=== PATIENT | male | born 1960 | race Hispanic/Latino ===

== ENCOUNTER 2017-04-26 19:22 | Inpatient (IN) | payer MEDICAID, OTHER ==
[2017-04-26 21:03] LABS: BASO % 0.4 % (0.0-2.0); EOS % 0.2 % (0.0-4.0); HEMATOCRIT 44.1 % (35.0-51.0); LYMPH % 10.8 % (20.0-40.0); MEAN CORPUSCULAR HEMOGLOBIN 34.1 pg (27.0-31.0); MEAN CORPUSCULAR HGB CONC 34.1 g/dL (33.0-37.0); MEAN PLATELET VOLUME 8.6 fl (7.2-11.7); MONO # 1.1 K/uL (0.0-0.8); MONO % 12.3 % (0.0-10.0); NEUT # 6.8 K/uL (1.8-7.0); NEUT % 76.3 % (50.0-75.0); RED CELL DISTRIBUTION WIDTH 15.3 % (11.5-14.5); WHITE BLOOD COUNT 8.9 K/uL (4.8-10.8)
--- NOTE | 2017-04-26 21:16 | ED PDOC ---
"HPI: Head Injury Time Seen by Provider: 04/26/17 19:35 Chief Complaint (Nursing): Trauma Chief Complaint (Provider): Head injury History Per: Patient History/Exam Limitations: no limitations Onset/Duration Of Symptoms: Days (x2) Additional Complaint(s): Rajinder Sandoval is a undomiciled 56 year old male with previous medical history of alcoholism, anemia, hypertension and chronic back pain, who presents to the emergency department for an evaluation after he admitted to falling while drinking and sustaining a head injury last night. Denied any fever, chills, or vomiting. PMD: Justin Edwards MD NIHSS Stroke Scale - Date/Time Evaluation Performed Date Performed: 04/26/17 Time Performed: 21:44 - How Severe is the Stroke Level of Consciousness: 0=Alert LOC to Questions: 0=Both comments correct LOC to commands: 0=Obeys both correctly Best Gaze: 0=Normal Visual: 0=No visual loss Facial: 0=Normal Motor Arm - Left: 0=No drift Motor Arm - Right: 0=No drift Motor Leg - Left: 0=No drift Motor Leg - Right: 0=No drift Limb Ataxia: 0=Absent Sensory: 0=Normal Best Language: 0=No aphasia Dysarthia: 0=Normal articulation Extinction & Inattention (Neglect): 0=Normal, no object Score: 0 Past Medical History Reviewed: Historical Data, Nursing Documentation, Vital Signs Vital Signs: Last Vital Signs Temp 98.7 F 04/26/17 19:25 Pulse 102 H 04/26/17 19:25 Resp 16 04/26/17 19:25 BP 118/82 04/26/17 19:25 Pulse Ox 98 04/26/17 19:25 - Medical History PMH: Anemia, Arthritis, Back Problems, HTN Denies: HIV - Surgical History Surgical History: No Surg Hx - Family History Family History: States: Unknown Family Hx - Social History Current smoker - smoking cessation education provided: No Alcohol: Occasional Drugs: Denies - Immunization History Hx Tetanus Toxoid Vaccination: Yes Hx Influenza Vaccination: Yes Hx Pneumococcal Vaccination: No - Home Medications Home Medications: Ambulatory Orders Medication Instructions Recorded No Known Home Med 04/26/17 - Allergies Allergies/Adverse Reactions: Allergies Allergy/AdvReac Type Severity Reaction Status Date / Time No Known Allergies Allergy Verified 04/26/17 23:00 Review of Systems ROS Statement: Except As Marked, All Systems Reviewed And Found Negative Constitutional: Negative for: Fever, Chills Gastrointestinal: Negative for: Vomiting Neurological: Positive for: Other (head injury) Physical Exam - Reviewed Nursing Documentation Reviewed: Yes Vital Signs Reviewed: Yes - Physical Exam Appears: Positive for: Well, Non-toxic, No Acute Distress Head Exam: Positive for: ATRAUMATIC, NORMAL INSPECTION, NORMOCEPHALIC Skin: Positive for: Normal Color Cardiovascular/Chest: Positive for: Regular Rate, Rhythm Respiratory: Positive for: Normal Breath Sounds. Negative for: Crackles, Rales , Rhonchi, Wheezing Gastrointestinal/Abdominal: Positive for: Soft Extremity: Positive for: Normal ROM Neurologic/Psych: Positive for: Alert, re examiner II-XII (intact), Oriented. Negative for: Motor/Sensory Deficits - Laboratory Results Result Diagrams: 04/26/17 20:59 04/26/17 20:59 - ECG O2 Sat by Pulse Oximetry: 98 (RA) Pulse Ox Interpretation: Normal Medical Decision Making Medical Decision Making: Initial Impression: Head injury Initial Plan: * CT head without contrast * Alcohol serum * Labs Time: 2124 --CT head FINDINGS: Brain: 2.1 x 1.7 x 1.2 cm focus of low attenuation in the right basal ganglia ( series 4, image 31). 6 mm focus of low attenuation in the left thalamus. Preserved wallace-white matter differentiation in the rest of the brain. Cerebral white matter low attenuation compatible with chronic small vessel ischemic changes. No evident intracranial mass. Parenchymal atrophy that is greater than expected for the patient's age. No acute intracranial hemorrhage. No abnormal extra-axial fluid collection. No herniation. Patent basal cisterns. Ventricles: Compensatory enlargement of the ventricles concordant with the parenchymal atrophy. Bones/joints: No destructive calvarial lesion. Old fracture of the left orbit medial wall. Soft tissues: No acute findings. RAJINDER SANDOVAL | Preliminary Radiology Report BARTACKER (QA) DISCREPANCY? If there is a discrepancy between the preliminary and final interpretation, please notify [facility] via [email or web address]. If you do not have access to our QA portal, call our QA team at [phone] CONFIDENTIALITY STATEMENT This report is intended only for the use of the referring physician, and only in accordance with law, If you received this in error, call [phone] Page 2 of 2 Vasculature: Atherosclerotic calcification of the intracranial portions of the internal carotid and vertebral arteries. Sinuses: The imaged paranasal sinuses are clear. Mastoid air cells: Small amount of fluid in a single right mastoid air cell. The mastoid air cells are otherwise clear bilaterally. IMPRESSION: 1. Low-attenuation foci in the right basal ganglia and left thalamus as described above are consistent with lacunar infarcts of indeterminate chronicity. If clinically warranted, further evaluation could be obtained with an MRI Brain. 2. Parenchymal atrophy that is greater than expected for the patient's age but is otherwise nonspecific. 3. Cerebral white matter low attenuation compatible with chronic small vessel ischemic changes. 4. Atherosclerotic calcification of the intracranial portions of the internal carotid and vertebral arteries. 5. A small amount of fluid in a single right mastoid air cell is likely sequela of a prior infectious or inflammatory process. 6. Additional nonacute findings as described above Time: 2143 --Possible subacute stroke per CT - no acute neurological findings on physical exam --Neurology consultation in am- order placed --Aspirin 325mg PO ordered pt to be admitted for stroke workup pt accepted by hospitalist Dr Brownlee Scribe Attestation: Documented by Indigo Stephen, acting as a scribe for Maile Nunes MD. Provider Scribe Attestation: All medical record entries made by the Scribe were at my direction and personally dictated by me. I have reviewed the chart and agree that the record accurately reflects my personal performance of the history, physical exam, medical decision making, and the department course for this patient. I have also personally directed, reviewed, and agree with the discharge instructions and disposition. Disposition - Clinical Impression Clinical Impression: Alcohol abuse, Stroke-like episode - Patient ED Disposition Is Patient to be Admitted: Yes - Disposition Disposition Time: 21:00 Condition: GUARDED"
[2017-04-26 21:17] LABS: ALB/GLOB RATIO 1.1 (1.0-2.1); ALCOHOL SERUM < 10 mg/dl (0-10); ALKALINE PHOSPHATASE 75 U/L (38-126); ALT/SGPT 36 U/L (21-72); AST/SGOT 55 U/L (17-59); BILIRUBIN,TOTAL 2.1 mg/dl (0.2-1.3); BLOOD UREA NITROGEN 11 mg/dl (9-20); CALCIUM 9.7 mg/dL (8.4-10.2); CARBON DIOXIDE 26 mmol/L (22-30); CHLORIDE 96 mmol/L (98-107); GFR AFRICAN-AMERICAN > 60; GLUCOSE,RANDOM 95 mg/dL (75-110); SODIUM 132 mmol/l (132-148); TOTAL PROTEIN 8.7 G/DL (6.3-8.2)
[2017-04-26 21:22] LABS: POTASSIUM 5.1 MMOL/L (3.6-5.0)
--- NOTE | 2017-04-26 22:52 | CP.PCM.HP ---
History of Present Illness - History of Present Illness History of Present Illness: CC: Falls, decreased sensation in feet HPI: This is a 56 y/o undomiciled male with MHx significant for HTN, anemia, and EtOH abuse who comes in with multiple falls with minor head trauma. He states that he has been feeling 'off balance' and falling more over the past several days. He denies EtOH associated with these falls. He has hit his head, but not passed out. Denies any focal weakness, but feels like both his feet are numb (this is ongoing, not new) and also c/o back pain (also chronic); he also feels off balance more lately as well. Denies any CP/SOB. ROS: 14 systems reviewed, negative other than HPI MHx: HTN, anemia, EtOH abuse SHx: None Allergy: NKDA Medications: As per med rec (questionable compliance) Family Hx: Multiple family members with MIs Social Hx: Homeless, 10 cans of beer daily or more, some variable number of cigarettes a day (below 10) Surrogate Dec Mkr: None Present on Admission - Present on Admission Any Indicators Present on Admission: No Past Patient History - Past Medical History & Family History Past Medical History?: Yes - Past Social History Alcohol: > 2 Drinks/Day Drugs: Denies - CARDIAC Hx Hypertension: Yes - PULMONARY Hx Tuberculosis: No - NEUROLOGICAL HX Cerebrovascular Accident: No - HEMATOLOGICAL/ONCOLOGICAL Hx Anemia: Yes Hx Human Immunodeficiency Virus (HIV): No - MUSCULOSKELETAL/RHEUMATOLOGICAL Hx Arthritis: Yes - GASTROINTESTINAL Hx Gastrointestinal Disorders: Yes Hx Colitis: Yes - PSYCHIATRIC Hx Substance Use: No - SURGICAL HISTORY Hx Surgeries: Yes Other/Comment: hemmroids - ANESTHESIA Hx Anesthesia: Yes Hx Anesthesia Reactions: No Hx Malignant Hyperthermia: No Meds Allergies/Adverse Reactions: Allergies Allergy/AdvReac Type Severity Reaction Status Date / Time No Known Allergies Allergy Verified 11/02/14 17:55 Physical Exam - Constitutional Appears: No Acute Distress - Head Exam Head Exam: ATRAUMATIC, NORMOCEPHALIC - Eye Exam Eye Exam: EOMI, PERRL - ENT Exam ENT Exam: Mucous Membranes Moist - Neck Exam Neck exam: Positive for: Full Rom - Respiratory Exam Respiratory Exam: Clear to Auscultation Bilateral, NORMAL BREATHING PATTERN - Cardiovascular Exam Cardiovascular Exam: REGULAR RHYTHM, +S1, +S2 - GI/Abdominal Exam GI & Abdominal Exam: Normal Bowel Sounds, Soft - Extremities Exam Extremities exam: Positive for: full ROM, normal inspection - Neurological Exam Neurological exam: Alert, CN II-XII Intact, Oriented x3 Additional comments: decreased sensation subjectively in b/l feet - Psychiatric Exam Psychiatric exam: Normal Affect, Normal Mood - Skin Skin Exam: Dry, Warm Results - Vital Signs Recent Vital Signs: Last Vital Signs Temp 98.7 F 04/26/17 19:25 Pulse 102 H 04/26/17 19:25 Resp 16 04/26/17 19:25 BP 118/82 04/26/17 19:25 Pulse Ox 98 04/26/17 21:56 - Labs Result Diagrams: 04/26/17 20:59 04/26/17 20:59 - Imaging and Cardiology CT scan - head Status: Report reviewed by me (R basal, L thalamus) Assessment & Plan (1) CVA (cerebral vascular accident) Assessment and Plan: 56 y/o male presenting with falls/balance problems in the setting of chronic EtOH use as well as possible subacute CVA. 1) Gait instability/falls; possible subacute CVA -ASA 81 daily, Statin daily -Echo and carotid dopplers in AM -Neuro consult in AM (Bashirya); further imaging per neuro -PT asssessment 2) EtOH abuse -- not acute; may have EtOH related neuropathy -- will check B12, folic acid 3) HTN -- stable currently 4) DVT PPx -- SQ Lovenox Status: Acute (2) Falls Status: Acute (3) Alcohol abuse Status: Acute (4) DVT prophylaxis Status: Acute
[2017-04-27] MEDS ORDERED: Pneumococcal 23-Valent Vaccine IM ONE (05:20)
[2017-04-27 07:00] LABS: HEMATOCRIT 41.9 % (35.0-51.0); MEAN CELL VOLUME 101.4 fl (80.0-94.0); MEAN CORPUSCULAR HEMOGLOBIN 34.3 pg (27.0-31.0); MEAN CORPUSCULAR HGB CONC 33.8 g/dL (33.0-37.0); RED CELL DISTRIBUTION WIDTH 15.1 % (11.5-14.5); WHITE BLOOD COUNT 7.4 K/uL (4.8-10.8)
[2017-04-27 07:02] LABS: BLOOD UREA NITROGEN 10 mg/dl (9-20); CALCIUM 9.5 mg/dL (8.4-10.2); CARBON DIOXIDE 29 mmol/L (22-30); CHLORIDE 95 mmol/L (98-107); CHOLESTEROL 178 mg/dL (0-199); GFR AFRICAN-AMERICAN > 60; GLUCOSE,RANDOM 88 mg/dL (75-110); POTASSIUM 3.4 MMOL/L (3.6-5.0); SODIUM 133 mmol/l (132-148)
--- NOTE | 2017-04-27 08:07 | CT ---
PROCEDURE: CT HEAD WITHOUT CONTRAST. HISTORY: headache COMPARISON: None available. TECHNIQUE: Axial computed tomography images were obtained through the head/brain without intravenous contrast. Coronal and sagittal reconstructed images. Radiation dose: Total exam DLP = 850.98 mGy-cm. This CT exam was performed using one or more of the following dose reduction techniques: Automated exposure control, adjustment of the mA and/or kV according to patient size, and/or use of iterative reconstruction technique. FINDINGS: HEMORRHAGE: No intracranial hemorrhage. BRAIN: No mass effect or edema. Low-attenuation region right basal ganglia. Likely lacune or infarct. Additional smaller well-defined low-attenuation regions left thalamus and internal capsule. Severe cortical atrophy for age. VENTRICLES: Unremarkable. No hydrocephalus. CALVARIUM: Unremarkable. PARANASAL SINUSES: Unremarkable as visualized. No significant inflammatory changes. MASTOID AIR CELLS: Unremarkable as visualized. No inflammatory changes. OTHER FINDINGS: None. IMPRESSION: No acute intracranial abnormalities. No significant findings to account for the clinical presentation. Multiple bilateral lacune or infarcts and severe cortical atrophy. Concordant results (preliminary interpretation) provided by [facility]. Procedure Completed: 20:32. Preliminary ([facility]) Report: Dictated and Authenticated: 21:25. Final Interpretation: 08:05. April 27, 2017.
[2017-04-27 08:15] LABS: RBC URINE 4 /hpf (0-3); URINE BILIRUBIN NEGATIVE (NEGATIVE); URINE BLOOD SMALL (NEGATIVE); URINE COLOR AMBER (YELLOW); URINE GLUCOSE (UA) NEG (Normal); URINE KETONE NEGATIVE (NEGATIVE); URINE LEUKOCYTE ESTERASE NEG Leu/uL (Negative); URINE PROTEIN NEGATIVE (NEGATIVE); WBC URINE < 1 /hpf (0-5)
[2017-04-27] MEDS: Enoxaparin 40 mg Syringe SC SCH (08:56)
--- NOTE | 2017-04-27 11:25 | CARD ---
APPROVED REPORT EXAM: Two-dimensional and M-mode echocardiogram with Doppler and color Doppler. Other Information Quality : [employer] : NSR INDICATION CVA/TIA 2D DIMENSIONS IVSd0.74 (0.7-1.1cm)LVDd5.00 (3.9-5.9cm) LVOT Diameter2.48 (1.8-2.4cm)PWd0.68 (0.7-1.1cm) IVSs1.14 (0.8-1.2cm)LVDs3.36 (2.5-4.0cm) FS (%) 32.8 %PWs1.05 (0.8-1.2cm) M-Mode DIMENSIONS Left Atrium (MM)3.91 (2.5-4.0cm)IVSd0.38 (0.7-1.1cm) Aortic Root3.41 (2.2-3.7cm)LVDd7.29 (4.0-5.6cm) Aortic Cusp Exc.2.18 (1.5-2.0cm)PWd0.88 (0.7-1.1cm) IVSs1.24 cmFS (%) 38 % LVDs4.56 (2.0-3.8cm)PWs0.97 cm Mitral Valve MV E Pfifvjbw29.0cm/sMV DECEL [id number] A Cxuuends61.7cm/s MV CRW98duA/A ratio1.2MVA (PHT)4.11cm2 TDI Lateral E' Peak V13.28cm/sMedial E' Peak V9.61cm/sE/Lateral E'4.9 E/Medial E'6.8 Pulmonary Valve PV Peak Ycygyhvz951.5cm/s Tricuspid Valve TR Peak Upemfzaj415gp/sRAP EZMKUHNC59zyXpEV Peak Gr.18mmHg [id number] LEFT VENTRICLE The left ventricle is normal size. There is normal left ventricular wall thickness. The left ventricular function is normal. The left ventricular ejection fraction is within the normal range. The Ejection Fraction is 60-65%. There is normal LV segmental wall motion. The left ventricular diastolic function is normal. No left ventricle thrombus noted on this study. There is no mass noted in the left ventricle. RIGHT VENTRICLE The right ventricle is normal size. There is normal right ventricular wall thickness. The right ventricular systolic function is normal. ATRIA The left atrium size is normal. The right atrium size is normal. The interatrial septum is intact with no evidence for an atrial septal defect. AORTIC VALVE The aortic valve is normal in structure and function. No aortic regurgitation is present. There is no aortic valvular stenosis. There is no aortic valvular vegetation. MITRAL VALVE The mitral valve is normal in structure and function. There is no evidence of mitral valve prolapse. There is no mitral valve stenosis. Mitral regurgitation is trace. TRICUSPID VALVE The tricuspid valve is normal in structure and function. There is trace tricuspid regurgitation. There is no tricuspid valve prolapse or vegetation. There is no tricuspid valve stenosis. PULMONIC VALVE The pulmonary valve is normal in structure and function. There is no pulmonic valvular regurgitation. There is no pulmonic valvular stenosis. GREAT VESSELS The aortic root is normal in size. The IVC is normal in size and collapses >50% with inspiration. PERICARDIAL EFFUSION The pericardium appears normal. There is no pleural effusion. <Conclusion> The left ventricle is normal size. The left ventricular function is normal. The left ventricular ejection fraction is within the normal range. The Ejection Fraction is 60-65%. There is trace tricuspid regurgitation. Mitral regurgitation is trace.
--- NOTE | 2017-04-27 11:54 | US ---
PROCEDURE: Duplex ultrasound of the carotid and vertebral arteries. HISTORY: CVA COMPARISON: None available. TECHNIQUE: Grayscale and duplex Doppler evaluation of the cervical carotid and vertebral arteries were performed. The common carotid, carotid bifurcations and cervical ICA and proximal ECA were evaluated. The vertebral arteries were evaluated for gross patency and direction. FINDINGS: There are calcified atherosclerotic plaques in the carotid bulbs and proximal internal and external carotid arteries. RIGHT CAROTID ARTERIES: Common Carotid Artery: Normal flow. Maximal flow velocity of 98.6 cm/s. Carotid Bifurcation: Unique flow. Internal Carotid Artery:Normal flow. Maximal flow velocity of 94.7 cm/s. External Carotid Artery (proximal branches): Normal. Maximal flow velocity of 18.3 cm/s. ICA/CCA Ratio: 1.0 LEFT CAROTID ARTERIES: Common Carotid Artery: Normal flow. Maximal flow velocity of 102.5 cm/s. Carotid Bifurcation: Normal flow. Internal Carotid Artery:Normal flow. Maximal flow velocity of 88.2 cm/s. External Carotid Artery (proximal branches): Normal. Maximal flow velocity of 114.3 cm/s. ICA/CCA Ratio: 1.2 VERTEBRAL ARTERIES: Right Vertebral Artery: Patent. Antegrade flow. Left Vertebral Artery: Patent. Antegrade flow. OTHER FINDINGS: None. IMPRESSION: No evidence of hemodynamically significant stenosis.
--- NOTE | 2017-04-27 14:16 | CP.PCM.PN ---
Subjective - Date & Time of Evaluation Date of Evaluation: 04/27/17 Time of Evaluation: 08:30 - Subjective Subjective: Patient was seen and examined. Hemodynamically stable, afebrile, with no sings of withdrawals. With ubnstaedy gait. No gross neuro deficits , AAOx3 . Objective - Vital Signs/Intake and Output Vital Signs (last 24 hours): Temp Pulse Resp BP Pulse Ox 97.8 F 71 18 158/88 H 99 04/27/17 11:58 04/27/17 11:58 04/27/17 11:58 04/27/17 11:58 04/27/17 11:58 - Medications Medications: Current Medications Acetaminophen (Tylenol 325mg Tab) 650 mg PO Q6 PRN PRN Reason: Pain, Mild (1-3) Last Admin: 04/27/17 13:15 Dose: 650 mg Aspirin (Aspirin Chewable) 81 mg PO DAILY [facility] Last Admin: 04/27/17 08:56 Dose: 81 mg Atorvastatin Calcium (Lipitor) 40 mg PO DAILY [facility] Last Admin: 04/27/17 08:56 Dose: 40 mg Enoxaparin Sodium (Lovenox) 40 mg SC DAILY [facility] PRN Reason: Protocol Last Admin: 04/27/17 08:56 Dose: 40 mg - Labs Labs: 04/27/17 06:10 04/27/17 06:10 - Constitutional Appears: Non-toxic, No Acute Distress - Head Exam Head Exam: ATRAUMATIC, NORMAL INSPECTION, NORMOCEPHALIC - Eye Exam Eye Exam: EOMI, Normal appearance, PERRL Pupil Exam: NORMAL ACCOMODATION - ENT Exam ENT Exam: Mucous Membranes Moist, Normal Exam - Respiratory Exam Respiratory Exam: Clear to Ausculation Bilateral, NORMAL BREATHING PATTERN. absent: Rales, Rhonchi, Wheezes - Cardiovascular Exam Cardiovascular Exam: REGULAR RHYTHM, RRR, +S1, +S2. absent: JVD - GI/Abdominal Exam GI & Abdominal Exam: Soft, Normal Bowel Sounds. absent: Guarding, Tenderness, Rebound - Rectal Exam Rectal Exam: Deferred - Extremities Exam Extremities Exam: Full ROM, Normal Capillary Refill, Normal Inspection. absent : Calf Tenderness, Pedal Edema - Back Exam Back Exam: NORMAL INSPECTION - Neurological Exam Neurological Exam: Alert, Awake, CN II-XII Intact, Oriented x3 Additional comments: wide base gait - Psychiatric Exam Psychiatric exam: Normal Affect - Skin Skin Exam: Dry, Intact, Normal Color, Warm Assessment and Plan - Assessment and Plan (Free Text) Assessment: 56 y/o homeless male with PMHx significant for HTN, anemia, and EtOH abuse presented to Er with multiple falls with minor head trauma. He states that he has been feeling 'off balance' and falling more over the past several days. He denies EtOH associated with these falls. He has hit his head, but not passed out. Denies any focal weakness, but feels like both his feet are numb (this is ongoing, not new) and also c/o back pain (also chronic); he also feels off balance more lately as well. Denies any CP/SOB. CT head in ER showed Multiple bilateral lacune or infarcts and severe cortical atrophy. 1. Gait instability with falls possible subacute CVA ,alcoholic neuropathy Continue tele monitoring ASA 81 mg Po daily , Statin Vitamin b12 levels normal F/u MRI head , Echo and carotid doppler Follow up neurology consult PT eval appreciated . Continue PT while in patient. patient has no insurance so will need to come as out patient for PT . 2. EtOH abuse chronic no signs of withdrawal 3.HTN start Norvasc low dose 4. Thrombocytopenia most likley chronic secondary to ETOH abuse 5.Hyperkalemia/ hypokalemia correct accordingly 6. DVT PPx SQ Lovenox
--- NOTE | 2017-04-27 15:17 | MRI ---
PROCEDURE: MRI BRAIN WITHOUT CONTRAST HISTORY: r/o stroke COMPARISON: Noncontrast head CT from 04/26/2017 TECHNIQUE: Multiplanar, multisequence MR images of the brain were obtained without intravenous contrast enhancement. FINDINGS: HEMORRHAGE: None DWI: There is a large area of restricted diffusion in the right narayanan radiata extending to the basal ganglia. BRAIN PARENCHYMA: There are severe chronic microangiopathic changes. There is no mass, mass effect or abnormal extra-axial fluid collection. There is a partially empty sella, otherwise the midline sagittal structures are normal. VENTRICLES: There is mild age-related global parenchymal volume loss and proportionate enlargement of the ventricles and cortical sulci. CRANIUM: There is normal bone marrow signal pattern. ORBITS: Grossly unremarkable. PARANASAL SINUSES/MASTOIDS: Predominantly clear. VASCULAR SYSTEM: Skull base flow voids intact. OTHER FINDINGS: None. IMPRESSION: 1. Acute right MCA territory infarction involving the right narayanan radiata and basal ganglia. 2. Severe chronic microangiopathic changes and mild age-related global parenchymal volume loss. Critical findings were discussed with nurse Ginger Sanders on 04/27/2017 at 3:15 p.m.
--- NOTE | 2017-04-27 15:31 | CP.PCM.CON ---
History of Present Illness - History of Present Illness History of Present Illness: Mr. Norton is a 56-year-old homeless man with a past medical history of hypertension and alcohol abuse who complains of generalized weakness and gait disturbance over the last day or two. He was admitted for work-up and an MRI of the brain revealed severe white matter disease with an acute infarct in the right basal ganglia and narayanan radiata region. When I saw the patient, he continued to complain of difficulty with ambulation, but was able to stand up and walk to the bathroom. Review of Systems - Review of Systems All systems: reviewed and no additional remarkable complaints except Past Patient History - Past Medical History & Family History Past Medical History?: Yes - Past Social History Alcohol: Occasional Drugs: Denies - CARDIAC Hx Hypertension: Yes - PULMONARY Hx Tuberculosis: No - NEUROLOGICAL HX Cerebrovascular Accident: No - HEMATOLOGICAL/ONCOLOGICAL Hx Anemia: Yes Hx Human Immunodeficiency Virus (HIV): No - MUSCULOSKELETAL/RHEUMATOLOGICAL Hx Arthritis: Yes - GASTROINTESTINAL Hx Gastrointestinal Disorders: Yes Hx Colitis: Yes - PSYCHIATRIC Hx Substance Use: No - SURGICAL HISTORY Hx Surgeries: Yes Other/Comment: hemmroids - ANESTHESIA Hx Anesthesia: Yes Hx Anesthesia Reactions: No Hx Malignant Hyperthermia: No Meds Allergies/Adverse Reactions: Allergies Allergy/AdvReac Type Severity Reaction Status Date / Time No Known Allergies Allergy Verified 04/26/17 23:00 - Medications Medications: Current Medications Acetaminophen (Tylenol 325mg Tab) 650 mg PO Q6 PRN PRN Reason: Pain, Mild (1-3) Last Admin: 04/27/17 13:15 Dose: 650 mg Amlodipine Besylate (Norvasc) 2.5 mg PO DAILY [facility] Aspirin (Aspirin Chewable) 81 mg PO DAILY [facility] Last Admin: 04/27/17 08:56 Dose: 81 mg Atorvastatin Calcium (Lipitor) 40 mg PO DAILY [facility] Last Admin: 04/27/17 08:56 Dose: 40 mg Enoxaparin Sodium (Lovenox) 40 mg SC DAILY [facility] PRN Reason: Protocol Last Admin: 04/27/17 08:56 Dose: 40 mg Folic Acid (Folic Acid) 1 mg PO DAILY [facility] Lorazepam (Ativan) 0.5 mg PO TID PRN PRN Reason: Restlessness Multivitamins/Vitamin C (Multi-Delyn Liquid) 5 ml PO DAILY [facility] Thiamine HCl (Vitamin B1 Tab) 100 mg PO DAILY [facility] Physical Exam - Constitutional Appears: Well - Head Exam Head Exam: ATRAUMATIC, NORMAL INSPECTION, NORMOCEPHALIC - Eye Exam Eye Exam: EOMI, Normal appearance, PERRL - Neck Exam Neck exam: Positive for: Normal Inspection - Cardiovascular Exam Cardiovascular Exam: REGULAR RHYTHM, +S1, +S2 - GI/Abdominal Exam GI & Abdominal Exam: Normal Bowel Sounds, Soft. absent: Tenderness - Rectal Exam Rectal Exam: Deferred - Extremities Exam Extremities exam: Positive for: normal inspection - Back Exam Back exam: NORMAL INSPECTION - Neurological Exam Neurological exam: Abnormal Gait, Alert, CN II-XII Intact, Oriented x3 Additional comments: NIHSS = 3 - Expanded Neurological Exam Expanded Patient oriented to: person, place, time Cranial nerves: EOM's Intact: Normal, Facial Sensation: Normal, Nystagmus: Normal Ataxia: Yes Cerebellar Function: Finger to Nose: Abnormal Left, Heel to Lara: Abnormal Left Upper motor neuron: Babinski Sign: Normal Sensory exam: Lower Extremity Light Touch: Normal, Lower Extremity Pin Prick: Normal, Upper Extremity Light Touch: Normal, Upper Extremity Pin Prick: Normal Neuro motor strength exam: Left Upper Extremity: 3, Right Upper Extremity: 4, Left Lower Extremity: 4, Right Lower Extremity: 4 DTR: Achilles Tendon Left: 3+, Achilles Tendon Right: 3+, Bicep Left: 3+, Bicep Right: 3+, Brachioradialis Left: 3+, Brachioradialis Right: 3+, Patellar Left: 3 +, Patellar Right: 3+, Tricep Left: 3+, Tricep Right: 3+ Results - Vital Signs Recent Vital Signs: Last Vital Signs Temp 97.8 F 04/27/17 11:58 Pulse 71 04/27/17 11:58 Resp 18 04/27/17 11:58 BP 158/88 H 04/27/17 11:58 Pulse Ox 99 04/27/17 11:58 - Labs Result Diagrams: 04/27/17 06:10 04/27/17 06:10 Labs: Laboratory Results - last 24 hr 04/27/17 04/27/17 04/27/17 06:10 06:10 06:10 WBC 7.4 RBC 4.13 L Hgb 14.2 Hct 41.9 MCV 101.4 H MCH 34.3 H MCHC 33.8 RDW 15.1 H Plt Count 116 L Sodium 133 Potassium 3.4 L Chloride 95 L Carbon Dioxide 29 Anion Gap 12 BUN 10 Creatinine 0.6 L Est GFR ( Amer) > 60 Est GFR (Non-Af Amer) > 60 POC Glucose (mg/dL) Random Glucose 88 Hemoglobin A1c 5.4 Calcium 9.5 Triglycerides 48 Cholesterol 178 LDL Cholesterol Direct 57 HDL Cholesterol 95 H Vitamin B12 384 Urine Color Urine Clarity Urine pH Ur Specific [place] Urine Protein Urine Glucose (UA) Urine Ketones Urine Blood Urine Nitrate Urine Bilirubin Urine Urobilinogen Ur Leukocyte Esterase Urine RBC (Auto) Urine Microscopic WBC 04/27/17 04/27/17 07:46 10:16 WBC RBC Hgb Hct MCV MCH MCHC RDW Plt Count Sodium Potassium Chloride Carbon Dioxide Anion Gap BUN Creatinine Est GFR ( Amer) Est GFR (Non-Af Amer) POC Glucose (mg/dL) 90 Random Glucose Hemoglobin A1c Calcium Triglycerides Cholesterol LDL Cholesterol Direct HDL Cholesterol Vitamin B12 Urine Color Anat Urine Clarity Slighty-cloudy Urine pH 6.0 Ur Specific [place] 1.017 Urine Protein Negative Urine Glucose (UA) Neg Urine Ketones Negative Urine Blood Small Urine Nitrate Negative Urine Bilirubin Negative Urine Urobilinogen 4.0 Ur Leukocyte Esterase Neg Urine RBC (Auto) 4 H Urine Microscopic WBC < 1 Assessment & Plan (1) Acute ischemic stroke Assessment and Plan: Likely secondary to uncontrolled hypertension. I recommend the followin. Telemetry 2. CTA of the head/neck 3. Echocardiogram with bubble 4. Aspirin 81 mg daily 5. Lipitor 40 mg daily 6. Normal saline at 100 mL/hr 7. Permissive HTN (only treat BP if it's higher than 220/110 mm Hg for the next 24-36 hours) 8. PT/OT eval and treat 9. DVT Px 10. Case management consult Thank you. Status: Acute Priority: High
[2017-04-27] MEDS ORDERED: Sodium Chloride 0.9% 500 ML IV SCH (15:45)
[2017-04-27] MEDS ORDERED: Iodixanol 320 MG/ML 100 ML BOTTLE IV ONE (16:33)
[2017-04-27] MEDS ORDERED: Sodium Chloride 0.9% 50 ML IV ONE (16:33)
[2017-04-27] MEDS: Multiple Vitamins Oral Solution PO SCH (17:26)
--- NOTE | 2017-04-27 18:22 | CT ---
PROCEDURE: CTA HEAD AND NECK WITH CONTRAST HISTORY: CVA workup COMPARISON: None available. TECHNIQUE: Initial noncontrast head CT was performed. Subsequently, CT angiogram of the head and neck were performed after the intravenous administration of 80 mL of Omnipaque 350. Contiguous 1.5mm thick images were obtained in the axial plane of the neck. 2-D coronal and sagittal MPR images were obtained. Imaging postprocessing was performed with 3-D images also obtained. A delayed contrast head CT was also obtained. Iterative reconstruction was used. Contrast dose: [facility] Radiation dose: Total exam DLP = 2089.47 MGy-cm. This CT exam was performed using one or more of the following dose reduction techniques: Automated exposure control, adjustment of the mA and/or kV according to patient size, and/or use of iterative reconstruction technique FINDINGS: HEAD: Right: The intracranial internal carotid artery, and anterior and middle cerebral arteries are widely patent. Left: The intracranial internal carotid artery, and anterior and middle cerebral arteries are widely patent. The visualized intracranial vertebral arteries, basilar artery and posterior cerebral arteries are widely patent. There is no endoluminal filling defect to suggest thrombus. There is no intracranial stenosis or aneurysm. There is no abnormal enhancement on the postcontrast CT. NECK: There is no stenosis at the origins of the great vessels at the level of the aortic arch. There are coarse atherosclerotic calcifications in the carotid bulbs, proximal internal carotid arteries and at the right vertebral artery origin. Right Carotid: On the right, the common carotid, internal carotid and external carotid arteries are widely patent. Left Carotid: On the left, the common carotid, internal carotid and external carotid arteries are widely patent. The vertebral arteries are widely patent. The right vertebral artery is dominant, an anatomic variant. The visualized soft tissues of the neck are normal. No abnormal neck lymphadenopathy. The airway is patent. The visualized brain, cervical spine and lung apices are normal. IMPRESSION: 1. No evidence of intra-arterial thrombus, occlusion or definite significant stenosis. 2. No evidence of hemodynamically significant stenosis in the internal carotid arteries
[2017-04-28 06:35] LABS: HEMATOCRIT 42.3 % (35.0-51.0); MEAN CELL VOLUME 99.1 fl (80.0-94.0); MEAN CORPUSCULAR HEMOGLOBIN 34.9 pg (27.0-31.0); MEAN CORPUSCULAR HGB CONC 35.2 g/dL (33.0-37.0); RED CELL DISTRIBUTION WIDTH 14.6 % (11.5-14.5); WHITE BLOOD COUNT 10.6 K/uL (4.8-10.8)
[2017-04-28 06:48] LABS: ALB/GLOB RATIO 1.2 (1.0-2.1); ALKALINE PHOSPHATASE 84 U/L (38-126); ALT/SGPT 44 U/L (21-72); AST/SGOT 93 U/L (17-59); BILIRUBIN,TOTAL 1.7 mg/dl (0.2-1.3); BLOOD UREA NITROGEN 14 mg/dl (9-20); CARBON DIOXIDE 21 mmol/L (22-30); CHLORIDE 100 mmol/L (98-107); GFR AFRICAN-AMERICAN > 60; GLUCOSE,RANDOM 116 mg/dL (75-110); POTASSIUM 3.4 MMOL/L (3.6-5.0); SODIUM 135 mmol/l (132-148); TOTAL PROTEIN 7.9 G/DL (6.3-8.2)
[2017-04-28 07:12] LABS: THYROID STIMULATING HORMONE 3.11 mIU/ML (0.46-4.68)
--- NOTE | 2017-04-28 07:43 | CP.PCM.PN ---
Subjective - Date & Time of Evaluation Date of Evaluation: 04/28/17 Time of Evaluation: 08:30 - Subjective Subjective: Patient seen and examined bedside. Tremulous,tachycardic HR ranging from 93- 134, confused with visual hallucinations or delusions. Moves all 4 extremities. Afebrile Objective - Vital Signs/Intake and Output Vital Signs (last 24 hours): Temp Pulse Resp BP Pulse Ox 98.2 F 111 H 20 152/91 H 96 04/28/17 05:00 04/28/17 05:00 04/28/17 05:00 04/28/17 05:00 04/28/17 05:00 - Medications Medications: Current Medications Acetaminophen (Tylenol 325mg Tab) 650 mg PO Q6 PRN PRN Reason: Pain, Mild (1-3) Last Admin: 04/27/17 13:15 Dose: 650 mg Aspirin (Aspirin Chewable) 81 mg PO DAILY [facility] Last Admin: 04/27/17 08:56 Dose: 81 mg Atorvastatin Calcium (Lipitor) 40 mg PO DAILY [facility] Last Admin: 04/27/17 08:56 Dose: 40 mg Chlordiazepoxide (Librium) 25 mg PO Q8 [facility] Enoxaparin Sodium (Lovenox) 40 mg SC DAILY [facility] PRN Reason: Protocol Last Admin: 04/27/17 08:56 Dose: 40 mg Folic Acid (Folic Acid) 1 mg PO DAILY [facility] Last Admin: 04/27/17 17:26 Dose: 1 mg Ibuprofen (Motrin Tab) 600 mg PO Q6 PRN PRN Reason: Pain, moderate (4-7) Last Admin: 04/27/17 18:19 Dose: 600 mg Lorazepam (Ativan) 0.5 mg PO TID PRN PRN Reason: Restlessness Last Admin: 04/27/17 18:56 Dose: 0.5 mg Lorazepam (Ativan) 1 mg PO TID [facility] Multivitamins/Vitamin C (Multi-Delyn Liquid) 5 ml PO DAILY [facility] Last Admin: 04/27/17 17:26 Dose: 5 ml Thiamine HCl (Vitamin B1 Tab) 100 mg PO DAILY [facility] Last Admin: 04/27/17 17:26 Dose: 100 mg - Labs Labs: 04/28/17 05:00 04/28/17 05:00 - Constitutional Appears: Older Than Stated Age, Agitated, Confused, Other (tremulous ) - Head Exam Head Exam: ATRAUMATIC, NORMAL INSPECTION, NORMOCEPHALIC - Eye Exam Eye Exam: EOMI, Normal appearance, PERRL Pupil Exam: NORMAL ACCOMODATION - ENT Exam ENT Exam: Mucous Membranes Moist, Normal Exam - Neck Exam Neck Exam: Full ROM, Normal Inspection - Respiratory Exam Respiratory Exam: Clear to Ausculation Bilateral, NORMAL BREATHING PATTERN. absent: Rhonchi, Wheezes - Cardiovascular Exam Cardiovascular Exam: Tachycardia. absent: JVD - GI/Abdominal Exam GI & Abdominal Exam: Soft, Normal Bowel Sounds. absent: Distended, Guarding, Tenderness, Rebound - Rectal Exam Rectal Exam: Deferred - Extremities Exam Extremities Exam: Full ROM, Normal Capillary Refill, Normal Inspection. absent : Calf Tenderness, Pedal Edema - Neurological Exam Neurological Exam: Alert, Awake. absent: Oriented x3 Additional comments: no gross neuro deficits - Psychiatric Exam Psychiatric exam: Agitated, Anxious - Skin Skin Exam: Dry, Normal Color, Warm Assessment and Plan - Assessment and Plan (Free Text) Assessment: 56 y/o homeless male with PMHx significant for HTN, anemia, and EtOH abuse presented to Er with multiple falls with minor head trauma. He states that he has been feeling 'off balance' and falling more over the past several days. He denies EtOH associated with these falls. He has hit his head, but not passed out. Denies any focal weakness, but feels like both his feet are numb (this is ongoing, not new) and also c/o back pain (also chronic); he also feels off balance more lately as well. Denies any CP/SOB. CT head in ER showed Multiple bilateral lacune or infarcts and severe cortical atrophy. 1. Acute Ischemic stroke MRI of the head showed 1. Acute right MCA territory infarction involving the right narayanan radiata and basal ganglia. 2. Severe chronic microangiopathic changes and mild age-related global parenchymal volume loss. Neurology consulted Continue ASa, statin permissive hypertension Neurology consult appreciated CTA neck showed no Blood clot , carotid doppler showed no stenosis Echo sowed normal EF and wall motion PT consulted . Continue gait training while in patient 2.ETOH withdrawal/ Delirium tremens patient tachycardic, tremulos , confused with visual hallucinations Start Librium 50 mg po q6, Ativan 1 mg IV TID and PRN Seizure precautions Placed on AVasyst for safety Continue thiamine, folic acid , MVI, IVF continue tele monitoring 3. Gait instability with falls ASA 81 mg Po daily , Statin Vitamin b12 levels normal F/u MRI head , Echo and carotid doppler Follow up neurology consult PT eval appreciated . Continue PT while in patient. patient has no insurance so can not discharge to any [facility] . 4. EtOH abuse chronic no signs of withdrawal 5.HTN allow permissive hypertension 4. Thrombocytopenia most likely chronic secondary to ETOH abuse 5.Hyperkalemia/ hypokalemia correct accordingly 6. DVT PPx SQ Lovenox
[2017-04-28] MEDS: Multiple Vitamins Oral Solution PO SCH (09:07)
[2017-04-28] MEDS: Enoxaparin 40 mg Syringe SC SCH (09:07)
--- NOTE | 2017-04-28 15:26 | CP.PCM.PN ---
Subjective - Date & Time of Evaluation Date of Evaluation: 04/28/17 Time of Evaluation: 15:23 - Subjective Subjective: Mr. Norton was seen and examined today at bedside. He was somnolent after receiving 4 mg of Ativan (3 IV and 1 PO) for agitation and alcohol withdrawal. However, he was able to move all extremities and followed commands appropriately. Objective - Vital Signs/Intake and Output Vital Signs (last 24 hours): Temp Pulse Resp BP Pulse Ox 97.6 F 93 H 18 158/92 H 98 04/28/17 12:29 04/28/17 12:29 04/28/17 12:29 04/28/17 12:29 04/28/17 12:29 Intake and Output: 04/28/17 04/28/17 06:59 18:59 Intake Total 500 Balance 500 - Medications Medications: Current Medications Acetaminophen (Tylenol 325mg Tab) 650 mg PO Q6 PRN PRN Reason: Pain, Mild (1-3) Last Admin: 04/27/17 13:15 Dose: 650 mg Aspirin (Aspirin Chewable) 81 mg PO DAILY [facility] Last Admin: 04/28/17 09:04 Dose: 81 mg Atorvastatin Calcium (Lipitor) 40 mg PO DAILY [facility] Last Admin: 04/28/17 09:04 Dose: 40 mg Chlordiazepoxide (Librium) 50 mg PO Q6 [facility] Last Admin: 04/28/17 09:06 Dose: 50 mg Enoxaparin Sodium (Lovenox) 40 mg SC DAILY [facility] PRN Reason: Protocol Last Admin: 04/28/17 09:07 Dose: 40 mg Folic Acid (Folic Acid) 1 mg PO DAILY [facility] Last Admin: 04/28/17 09:04 Dose: 1 mg Ibuprofen (Motrin Tab) 600 mg PO Q6 PRN PRN Reason: Pain, moderate (4-7) Last Admin: 04/27/17 18:19 Dose: 600 mg Lorazepam (Ativan) 0.5 mg PO TID PRN PRN Reason: Restlessness Last Admin: 04/27/17 18:56 Dose: 0.5 mg Lorazepam (Ativan) 1 mg PO TID [facility] Last Admin: 04/28/17 12:42 Dose: 1 mg Multivitamins/Vitamin C (Multi-Delyn Liquid) 5 ml PO DAILY [facility] Last Admin: 08/17/17 09:07 Dose: 5 ml Thiamine HCl (Vitamin B1 Tab) 100 mg PO DAILY [facility] Last Admin: 04/28/17 09:04 Dose: 100 mg - Labs Labs: 04/28/17 05:00 04/28/17 05:00 - Neurological Exam Neurological Exam: Altered, CN II-XII Intact Neuro motor strength exam: Left Upper Extremity: 4, Right Upper Extremity: 4, Left Lower Extremity: 3, Right Lower Extremity: 4 Additional comments: NIHSS = 3 Assessment and Plan (1) Acute ischemic stroke Assessment & Plan: Continue aspirin/plavix, statin and avoid using heavy benzodiazepines. Consider gabapentin 300 mg TID and use seroquel 25 mg QHS for psychosis and agitation. PT/OT as planned. Hydration and DVT Px. Status: Acute
[2017-04-29 07:56] LABS: HEMATOCRIT 41.2 % (35.0-51.0); MEAN CELL VOLUME 101.1 fl (80.0-94.0); MEAN CORPUSCULAR HEMOGLOBIN 34.3 pg (27.0-31.0); MEAN CORPUSCULAR HGB CONC 33.9 g/dL (33.0-37.0); RED CELL DISTRIBUTION WIDTH 14.9 % (11.5-14.5)
[2017-04-29 08:07] LABS: ALB/GLOB RATIO 1.1 (1.0-2.1); ALKALINE PHOSPHATASE 58 U/L (38-126); ALT/SGPT 56 U/L (21-72); AST/SGOT 116 U/L (17-59); BILIRUBIN,TOTAL 1.3 mg/dl (0.2-1.3); BLOOD UREA NITROGEN 14 mg/dl (9-20); CALCIUM 9.3 mg/dL (8.4-10.2); CARBON DIOXIDE 28 mmol/L (22-30); CHLORIDE 101 mmol/L (98-107); GFR AFRICAN-AMERICAN > 60; GLUCOSE,RANDOM 80 mg/dL (75-110); POTASSIUM 2.6 MMOL/L (3.6-5.0); SODIUM 138 mmol/l (132-148); TOTAL PROTEIN 6.9 G/DL (6.3-8.2)
[2017-04-29] MEDS: Multiple Vitamins Oral Solution PO SCH (09:04)
[2017-04-29] MEDS: Enoxaparin 40 mg Syringe SC SCH (09:04)
[2017-04-29] MEDS: Potassium CL 10 MEQ/50 ML 50 ML IVPB SCH ×4 (10:32→14:26)
--- NOTE | 2017-04-29 16:57 | CP.PCM.PN ---
Subjective - Date & Time of Evaluation Date of Evaluation: 04/29/17 Time of Evaluation: 09:00 - Subjective Subjective: Patient seen and examined bedside. Awake, alert and oriented . No tremors noted , no confusion. No acute issues overnight .Appears in NAD.Complains of pain to lower back and asking for pain medication. Denies any CP, SOB, palpitations, abdominal pain, focal weakness or numbness. Tolerating Po intake Objective - Vital Signs/Intake and Output Vital Signs (last 24 hours): Temp Pulse Resp BP Pulse Ox 97.9 F 75 18 107/72 100 04/29/17 12:03 04/29/17 12:03 04/29/17 12:03 04/29/17 12:03 04/29/17 12:03 Intake and Output: 04/29/17 04/29/17 06:59 18:59 Intake Total 250 Balance 250 - Medications Medications: Current Medications Acetaminophen (Tylenol 325mg Tab) 650 mg PO Q6 PRN PRN Reason: Pain, Mild (1-3) Last Admin: 04/29/17 03:37 Dose: 650 mg Aspirin (Aspirin Chewable) 81 mg PO DAILY [facility] Last Admin: 04/29/17 09:03 Dose: 81 mg Atorvastatin Calcium (Lipitor) 40 mg PO DAILY [facility] Last Admin: 04/29/17 09:03 Dose: 40 mg Chlordiazepoxide (Librium) 50 mg PO Q8 [facility] Enoxaparin Sodium (Lovenox) 40 mg SC DAILY [facility] PRN Reason: Protocol Last Admin: 04/29/17 09:04 Dose: 40 mg Folic Acid (Folic Acid) 1 mg PO DAILY [facility] Last Admin: 04/29/17 09:03 Dose: 1 mg Gabapentin (Neurontin) 300 mg PO TID [facility] Last Admin: 04/29/17 13:14 Dose: 300 mg Ibuprofen (Motrin Tab) 600 mg PO Q6 PRN PRN Reason: Pain, moderate (4-7) Last Admin: 04/29/17 09:33 Dose: 600 mg Lorazepam (Ativan) 0.5 mg PO TID PRN PRN Reason: Restlessness Last Admin: 04/27/17 18:56 Dose: 0.5 mg Multivitamins/Vitamin C (Multi-Delyn Liquid) 5 ml PO DAILY [facility] Last Admin: 04/29/17 09:04 Dose: 5 ml Potassium Chloride (Potassium Chloride Oral Soln) 40 meq PO ONCE ONE Stop: 04/29/17 18:01 Quetiapine Fumarate (Seroquel) 25 mg PO HS [facility] Last Admin: 04/28/17 22:11 Dose: 25 mg Thiamine HCl (Vitamin B1 Tab) 100 mg PO DAILY [facility] Last Admin: 04/29/17 09:04 Dose: 100 mg - Labs Labs: 04/29/17 07:46 04/29/17 07:46 - Constitutional Appears: Non-toxic, No Acute Distress - Head Exam Head Exam: ATRAUMATIC, NORMAL INSPECTION, NORMOCEPHALIC - Eye Exam Eye Exam: EOMI, Normal appearance, PERRL Pupil Exam: NORMAL ACCOMODATION - ENT Exam ENT Exam: Mucous Membranes Moist, Normal Exam - Neck Exam Neck Exam: Full ROM, Normal Inspection - Respiratory Exam Respiratory Exam: Clear to Ausculation Bilateral, NORMAL BREATHING PATTERN. absent: Rales, Rhonchi, Wheezes - Cardiovascular Exam Cardiovascular Exam: REGULAR RHYTHM, RRR, +S1, +S2. absent: JVD - GI/Abdominal Exam GI & Abdominal Exam: Soft, Normal Bowel Sounds. absent: Distended, Guarding, Tenderness, Rebound - Rectal Exam Rectal Exam: Deferred - Extremities Exam Extremities Exam: Full ROM, Normal Capillary Refill, Normal Inspection. absent : Calf Tenderness, Pedal Edema - Back Exam Back Exam: NORMAL INSPECTION - Neurological Exam Neurological Exam: Alert, Awake, Oriented x3 Additional comments: left facial droop ? - Psychiatric Exam Psychiatric exam: Flat Affect - Skin Skin Exam: Dry, Normal Color, Warm Assessment and Plan - Assessment and Plan (Free Text) Assessment: 56 y/o homeless male with PMHx significant for HTN, anemia, and EtOH abuse presented to ER with multiple falls with minor head trauma. He states that he has been feeling 'off balance' and falling more over the past several days. He denies EtOH associated with these falls. He has hit his head, but not passed out. Denies any focal weakness, but feels like both his feet are numb (this is ongoing, not new) and also c/o back pain (also chronic); he also feels off balance more lately as well. Denies any CP/SOB. CT head in ER showed Multiple bilateral lacune or infarcts and severe cortical atrophy. Patient admitted in telemetry for close monitoring. MRI head showed acute right MCA stroke Patient started on ASa, lovenox and statin. Neurology and Pt consulted He developed DT-s and was started on gabapentin 300 mg PO TID , Seroqule nd Ativan PRN 1. Acute Ischemic stroke MRI of the head showed 1. Acute right MCA territory infarction involving the right narayanan radiata and basal ganglia. 2. Severe chronic microangiopathic changes and mild age-related global parenchymal volume loss. Neurology consulted Continue ASa, statin Allow permissive hypertension Neurology consult appreciated CTA neck showed no Blood clot , carotid doppler showed no stenosis Echo showed normal EF and wall motion PT consulted . Continue gait training while in patient will repeat CT head since patient has some new left facial drop 2.ETOH withdrawal/ Delirium tremens patient was tachycardic, tremulos , confused with visual hallucinations yesterday Started Librium 50 mg po q6, Ativan 0.5 mg PO TID PRN discussed with neurology and recommended to start patient on gabapentin and Seroquel HS patient's mental status much improved today, no tremors noted Will raquel Librium to 50 mg Q8 Continue thiamin, folic acid, MVI, ativan PRN Continue gabapentin 300 mg po TID and Seroquel 25 mg Po HS Seizure precautions on AVasyst for safety 3. Gait instability with falls PT eval appreciated . Continue PT while in patient. Patient has no insurance so can not discharge to any [facility] . 4. EtOH abuse chronic on Thiamine, folic acid, MVI Ativan PRN 5.HTN allow permissive hypertension 4. Thrombocytopenia- improved most likely chronic secondary to ETOH abuse 5.Hypokalemia Will give 40 MEQ IV and 40 MEQ pO today Repeat BMP in AM 6. DVT PPx SQ Lovenox
[2017-04-29] MEDS ORDERED: Potassium Chloride 20 mEq/15 ml LIQ UD PO ONE (18:00)
[2017-04-30] MEDS ORDERED: Potassium Chloride 20 mEq ER Tab PO ONE (07:13)
[2017-04-30] MEDS ORDERED: Potassium CL 10mEq/100ml 100 ML IVPB SCH (08:00)
[2017-04-30 08:12] LABS: BLOOD UREA NITROGEN 15 mg/dl (9-20); CALCIUM 9.3 mg/dL (8.4-10.2); CARBON DIOXIDE 27 mmol/L (22-30); CHLORIDE 104 mmol/L (98-107); GFR AFRICAN-AMERICAN > 60; GLUCOSE,RANDOM 90 mg/dL (75-110); MAGNESIUM 2.2 MG/DL (1.6-2.3); PHOSPHOROUS 3.6 mg/dl (2.5-4.5); POTASSIUM 3.7 MMOL/L (3.6-5.0); SODIUM 138 mmol/l (132-148)
[2017-04-30 08:14] LABS: HEMATOCRIT 41.7 % (35.0-51.0); MEAN CELL VOLUME 102.7 fl (80.0-94.0); MEAN CORPUSCULAR HEMOGLOBIN 34.5 pg (27.0-31.0); MEAN CORPUSCULAR HGB CONC 33.6 g/dL (33.0-37.0); RED CELL DISTRIBUTION WIDTH 14.8 % (11.5-14.5); WHITE BLOOD COUNT 9.1 K/uL (4.8-10.8)
[2017-04-30] MEDS: Enoxaparin 40 mg Syringe SC SCH (08:49)
[2017-04-30] MEDS: Multiple Vitamins Oral Solution PO SCH (08:50)
--- NOTE | 2017-04-30 09:08 | CP.PCM.PN ---
Subjective - Date & Time of Evaluation Date of Evaluation: 04/30/17 Time of Evaluation: 09:05 - Subjective Subjective: pt seen examined bedside no confusion mildly tremulous strength all 4 extremities, 3/4 in LLE HD stable NAD Objective - Vital Signs/Intake and Output Vital Signs (last 24 hours): Temp Pulse Resp BP Pulse Ox 97.7 F 56 L 18 115/70 100 04/30/17 08:00 04/30/17 08:00 04/30/17 08:00 04/30/17 08:00 04/30/17 08:00 - Medications Medications: Current Medications Acetaminophen (Tylenol 325mg Tab) 650 mg PO Q6 PRN PRN Reason: Pain, Mild (1-3) Last Admin: 04/29/17 03:37 Dose: 650 mg Aspirin (Aspirin Chewable) 81 mg PO DAILY [facility] Last Admin: 04/30/17 08:49 Dose: 81 mg Atorvastatin Calcium (Lipitor) 40 mg PO DAILY [facility] Last Admin: 04/30/17 08:50 Dose: 40 mg Chlordiazepoxide (Librium) 50 mg PO Q8 [facility] Last Admin: 04/30/17 08:48 Dose: 50 mg Enoxaparin Sodium (Lovenox) 40 mg SC DAILY [facility] PRN Reason: Protocol Last Admin: 04/30/17 08:49 Dose: 40 mg Folic Acid (Folic Acid) 1 mg PO DAILY [facility] Last Admin: 04/30/17 08:49 Dose: 1 mg Gabapentin (Neurontin) 300 mg PO TID [facility] Last Admin: 04/30/17 08:50 Dose: 300 mg Ibuprofen (Motrin Tab) 600 mg PO Q6 PRN PRN Reason: Pain, moderate (4-7) Last Admin: 04/29/17 09:33 Dose: 600 mg Lorazepam (Ativan) 0.5 mg PO TID PRN PRN Reason: Restlessness Last Admin: 04/27/17 18:56 Dose: 0.5 mg Multivitamins/Vitamin C (Multi-Delyn Liquid) 5 ml PO DAILY [facility] Last Admin: 04/30/17 08:50 Dose: 5 ml Quetiapine Fumarate (Seroquel) 25 mg PO HS [facility] Last Admin: 04/29/17 21:29 Dose: 25 mg Thiamine HCl (Vitamin B1 Tab) 100 mg PO DAILY [facility] Last Admin: 08/19/17 08:49 Dose: 100 mg - Labs Labs: 04/30/17 06:00 04/30/17 06:00 - Constitutional Appears: Non-toxic, No Acute Distress, Unkempt - Head Exam Head Exam: ATRAUMATIC, NORMOCEPHALIC - Eye Exam Eye Exam: EOMI, Normal appearance, PERRL - ENT Exam ENT Exam: Mucous Membranes Moist, Normal Oropharynx - Neck Exam Neck Exam: Full ROM, Normal Inspection - Respiratory Exam Respiratory Exam: Clear to Ausculation Bilateral, NORMAL BREATHING PATTERN - Cardiovascular Exam Cardiovascular Exam: RRR, +S1, +S2 - GI/Abdominal Exam GI & Abdominal Exam: Soft, Normal Bowel Sounds. absent: Tenderness, Organomegaly - Extremities Exam Extremities Exam: Normal Capillary Refill. absent: Calf Tenderness - Back Exam Back Exam: absent: CVA tenderness (L), CVA tenderness (R), paraspinal tenderness - Neurological Exam Neurological Exam: Alert, Awake Neuro motor strength exam: Left Upper Extremity: 4, Right Upper Extremity: 4, Left Lower Extremity: 3, Right Lower Extremity: 4 - Psychiatric Exam Psychiatric exam: Normal Affect, Normal Mood - Skin Skin Exam: Dry, Warm Assessment and Plan - Assessment and Plan (Free Text) Plan: 56 y/o homeless male with PMHx significant for HTN, anemia, and EtOH abuse presented to ER with multiple falls with minor head trauma. He states that he has been feeling 'off balance' and falling more over the past several days. He denies EtOH associated with these falls. He has hit his head, but not passed out. Denies any focal weakness, but feels like both his feet are numb (this is ongoing, not new) and also c/o back pain (also chronic); he also feels off balance more lately as well. Denies any CP/SOB. CT head in ER showed Multiple bilateral lacune or infarcts and severe cortical atrophy. Patient admitted in telemetry for close monitoring. MRI head showed acute right MCA stroke Patient started on ASa, lovenox and statin. Neurology and Pt consulted He developed DT-s and was started on gabapentin 300 mg PO TID , Seroqule nd Ativan PRN 1. Acute Ischemic stroke Repeat CT head this AM MRI of the head showed 1. Acute right MCA territory infarction involving the right narayanan radiata and basal ganglia. 2. Severe chronic microangiopathic changes and mild age-related global parenchymal volume loss. Neurology consult appreciated Continue ASa, statin Allow permissive hypertension Neurology consult appreciated CTA neck showed no Blood clot , carotid doppler showed no stenosis Echo showed normal EF and wall motion PT consulted . Continue gait training while in patient will repeat CT head since patient has some new left facial drop 2.ETOH withdrawal/ Delirium tremens patient was tachycardic, tremulous, confused with visual hallucinations on admission Started Librium 50 mg po q6, Ativan 0.5 mg PO TID PRN discussed with neurology and recommended to start patient on gabapentin and Seroquel HS patient's mental status much improved today, very mildly tremulous today Will raquel Librium to 50 mg Q8 Continue thiamine, folic acid, MVI, ativan PRN Continue gabapentin 300 mg po TID and Seroquel 25 mg Po HS Seizure precautions on AVasyst for safety 3. Gait instability with falls PT eval appreciated . Continue PT while in patient. Patient has no insurance so can not discharge to any [facility] . 4. EtOH abuse chronic on Thiamine, folic acid, MVI Ativan PRN 5.HTN allow permissive hypertension 4. Thrombocytopenia- improved most likely chronic secondary to ETOH abuse 5.Hypokalemia gave 40 MEQ IV and 40 MEQ pO yesterday Repeat BMP in AM 6. DVT PPx SQ Lovenox
--- NOTE | 2017-04-30 10:21 | CT ---
PROCEDURE: CT HEAD WITHOUT CONTRAST. HISTORY: acute ischemic stroke COMPARISON: Comparison made with CT scan and MRI brain dated 04/26/2017 and 04/27/2017 respectively TECHNIQUE: Axial computed tomography images were obtained through the head/brain without intravenous contrast. Radiation dose: Total exam DLP = 1035.5 mGy-cm. This CT exam was performed using one or more of the following dose reduction techniques: Automated exposure control, adjustment of the mA and/or kV according to patient size, and/or use of iterative reconstruction technique. FINDINGS: HEMORRHAGE: No acute parenchymal, subarachnoid or extra-axial hemorrhage. BRAIN: Again seen is a acute -subacute infarct right anterolateral basal ganglia/ coronal radiata junction. No evidence of acute intracranial hemorrhage seen. Moderate diffuse/confluent chronic white matter ischemic changes also again seen extending peripherally into the deep and subcortical white matter both cerebral hemispheres. No obvious parenchymal nor extra-axial mass or collection Vascular calcifications again noted VENTRICLES: Moderate central volume loss evidenced by disproportionate enlargement of the ventricles as compared the sulci CALVARIUM: No acute calvarial fractures PARANASAL SINUSES: Unremarkable as visualized. No significant inflammatory changes. MASTOID AIR CELLS: Unremarkable as visualized. No inflammatory changes. OTHER FINDINGS: None. IMPRESSION: Acute/subacute infarct right anterolateral basal ganglia/ narayanan radiata. Moderate diffuse/ confluent chronic white matter ischemic changes. Mild Moderate central volume loss. No acute intracranial hemorrhage.
[2017-05-01] MEDS: Enoxaparin 40 mg Syringe SC SCH (08:54)
[2017-05-01] MEDS: Multiple Vitamins Oral Solution PO SCH (08:55)
--- NOTE | 2017-05-01 10:51 | CP.PCM.PN ---
Subjective - Date & Time of Evaluation Date of Evaluation: 05/01/17 Time of Evaluation: 10:51 - Subjective Subjective: Pt weak today, has not been getting out of bed, requiring assistance to ambulate , possibly also due to benzos, will taper for PT tomorrow no tremors will taper librium HD stable NAD Objective - Vital Signs/Intake and Output Vital Signs (last 24 hours): Temp Pulse Resp BP Pulse Ox 97.9 F 73 20 150/80 98 05/01/17 08:00 05/01/17 08:00 05/01/17 08:00 05/01/17 08:00 05/01/17 08:00 GEN: unkempt, ALERT, COOPERATIVE HEENT: NCAT, PERRL, EOMI HEART: +S1+S2, RRR NO MRG LUNG: CTAB, NO WRR ABD: SOFT BSX4 NT ND NO HSM NO MASS EXT: WARM, WELL PERFUSED NEURO: AA0X3, STRENGTH AND SENSATION EQUAL AND BILATERAL SKIN: WARM DRY PSYCH: NORMAL MOOD NORMAL AFFECT Intake and Output: 05/01/17 05/01/17 06:59 18:59 Intake Total 240 Balance 240 - Medications Medications: Current Medications Acetaminophen (Tylenol 325mg Tab) 650 mg PO Q6 PRN PRN Reason: Pain, Mild (1-3) Last Admin: 04/29/17 03:37 Dose: 650 mg Aspirin (Aspirin Chewable) 81 mg PO DAILY [facility] Last Admin: 05/01/17 08:54 Dose: 81 mg Atorvastatin Calcium (Lipitor) 40 mg PO DAILY [facility] Last Admin: 05/01/17 08:54 Dose: 40 mg Chlordiazepoxide (Librium) 50 mg PO Q8 [facility] Last Admin: 05/01/17 08:52 Dose: 50 mg Enoxaparin Sodium (Lovenox) 40 mg SC DAILY [facility] PRN Reason: Protocol Last Admin: 05/01/17 08:54 Dose: 40 mg Folic Acid (Folic Acid) 1 mg PO DAILY [facility] Last Admin: 05/01/17 08:54 Dose: 1 mg Gabapentin (Neurontin) 300 mg PO TID [facility] Last Admin: 05/01/17 08:56 Dose: 300 mg Ibuprofen (Motrin Tab) 600 mg PO Q6 PRN PRN Reason: Pain, moderate (4-7) Last Admin: 04/29/17 09:33 Dose: 600 mg Lorazepam (Ativan) 0.5 mg PO TID PRN PRN Reason: Restlessness Last Admin: 04/30/17 22:23 Dose: 0.5 mg Multivitamins/Vitamin C (Multi-Delyn Liquid) 5 ml PO DAILY [facility] Last Admin: 05/01/17 08:55 Dose: 5 ml Quetiapine Fumarate (Seroquel) 25 mg PO HS [facility] Last Admin: 04/30/17 22:19 Dose: 25 mg Thiamine HCl (Vitamin B1 Tab) 100 mg PO DAILY [facility] Last Admin: 05/01/17 08:56 Dose: 100 mg - Labs Labs: 04/30/17 06:00 04/30/17 06:00 Assessment and Plan - Assessment and Plan (Free Text) Plan: 56 y/o homeless male with PMHx significant for HTN, anemia, and EtOH abuse presented to ER with multiple falls with minor head trauma. He states that he has been feeling 'off balance' and falling more over the past several days. He denies EtOH associated with these falls. He has hit his head, but not passed out. Denies any focal weakness, but feels like both his feet are numb (this is ongoing, not new) and also c/o back pain (also chronic); he also feels off balance more lately as well. Denies any CP/SOB. CT head in ER showed Multiple bilateral lacune or infarcts and severe cortical atrophy. Patient admitted in telemetry for close monitoring. MRI head showed acute right MCA stroke Patient started on ASa, lovenox and statin. Neurology and Pt consulted He developed DT-s and was started on gabapentin 300 mg PO TID , Seroqule nd Ativan PRN 05/01/17 - pt mentating appropriately, however is weaker than yesterday, has not been getting out of bed. PT for further gait training tomorrow for safe discharge. Taper Librium to 25 mg po q12. 1. Acute Ischemic stroke Appears stable clinically Repeat CT head this AM MRI of the head showed 1. Acute right MCA territory infarction involving the right narayanan radiata and basal ganglia. 2. Severe chronic microangiopathic changes and mild age-related global parenchymal volume loss. Neurology consult appreciated Continue ASa, statin Allow permissive hypertension Neurology consult appreciated CTA neck showed no Blood clot , carotid doppler showed no stenosis Echo showed normal EF and wall motion PT consulted . Continue gait training while in patient will repeat CT head since patient has some new left facial drop -- NO CHANGES 2.ETOH withdrawal/ Delirium tremens patient was tachycardic, tremulous, confused with visual hallucinations on admission Started Librium 50 mg po q6, TAPERED TO 25 MG PO Q12. Ativan 0.5 mg PO TID PRN discussed with neurology and recommended to start patient on gabapentin and Seroquel HS patient's mental status much improved today, not tremulous today Continue thiamine, folic acid, MVI, ativan PRN Continue gabapentin 300 mg po TID and Seroquel 25 mg Po HS Seizure precautions on AVasyst for safety 3. Gait instability with falls PT eval appreciated Pt appears weaker than yesterday, has not gotten out of bed, PT tomorrow for further training Continue PT while in patient. Patient has no insurance so can not discharge to any [facility] . 4. EtOH abuse chronic on Thiamine, folic acid, MVI Ativan PRN 5.HTN allow permissive hypertension 4. Thrombocytopenia- improved most likely chronic secondary to ETOH abuse 5.Hypokalemia gave 40 MEQ IV and 40 MEQ pO K resolved to 3.7 Repeat BMP in AM 6. DVT PPx SQ Lovenox
[2017-05-01 13:22] LABS: HEMATOCRIT 41.3 % (35.0-51.0); MEAN CELL VOLUME 103.1 fl (80.0-94.0); MEAN CORPUSCULAR HEMOGLOBIN 34.5 pg (27.0-31.0); MEAN CORPUSCULAR HGB CONC 33.5 g/dL (33.0-37.0); RED CELL DISTRIBUTION WIDTH 14.7 % (11.5-14.5); WHITE BLOOD COUNT 9.8 K/uL (4.8-10.8)
[2017-05-01 13:27] LABS: BLOOD UREA NITROGEN 15 mg/dl (9-20); CALCIUM 9.5 mg/dL (8.4-10.2); CARBON DIOXIDE 25 mmol/L (22-30); CHLORIDE 104 mmol/L (98-107); GFR AFRICAN-AMERICAN > 60; GLUCOSE,RANDOM 108 mg/dL (75-110); POTASSIUM 3.4 MMOL/L (3.6-5.0); SODIUM 138 mmol/l (132-148)
[2017-05-01 15:03] LABS: BILIRUBIN,TOTAL 1.2 mg/dl (0.2-1.3); TOTAL PROTEIN 7.1 G/DL (6.3-8.2)
[2017-05-01] MEDS: Potassium Ch 20mEq in D5-1/2NS 1,000 ML IV SCH ×2 (15:05→22:35)
[2017-05-02] MEDS: Potassium Ch 20mEq in D5-1/2NS 1,000 ML IV SCH (05:50)
[2017-05-02 07:07] LABS: HEMATOCRIT 39.7 % (35.0-51.0); MEAN CELL VOLUME 100.4 fl (80.0-94.0); MEAN CORPUSCULAR HGB CONC 34.8 g/dL (33.0-37.0); RED CELL DISTRIBUTION WIDTH 14.1 % (11.5-14.5); WHITE BLOOD COUNT 8.8 K/uL (4.8-10.8)
[2017-05-02 07:28] LABS: ALB/GLOB RATIO 0.9 (1.0-2.1); ALKALINE PHOSPHATASE 64 U/L (38-126); ALT/SGPT 50 U/L (21-72); AST/SGOT 72 U/L (17-59); BILIRUBIN,TOTAL 1.3 mg/dl (0.2-1.3); BLOOD UREA NITROGEN 12 mg/dl (9-20); CARBON DIOXIDE 26 mmol/L (22-30); CHLORIDE 105 mmol/L (98-107); GFR AFRICAN-AMERICAN > 60; GLUCOSE,RANDOM 127 mg/dL (75-110); POTASSIUM 3.9 MMOL/L (3.6-5.0); SODIUM 140 mmol/l (132-148); TOTAL PROTEIN 6.8 G/DL (6.3-8.2)
[2017-05-02] MEDS: Enoxaparin 40 mg Syringe SC SCH (09:04)
[2017-05-02] MEDS: Multiple Vitamins Oral Solution PO SCH (09:12)
--- NOTE | 2017-05-02 12:15 | CP.PCM.PN ---
Subjective - Date & Time of Evaluation Date of Evaluation: 05/02/17 Time of Evaluation: 12:15 - Subjective Subjective: Pt seen and examined at bedside. Mildly confused, appears weak. For PT today. Denies CP, Dyspnea, Calftenderness. HD stable NAD. Objective - Vital Signs/Intake and Output Vital Signs (last 24 hours): Temp Pulse Resp BP Pulse Ox 99.9 F H 78 20 146/75 95 05/02/17 08:00 05/02/17 08:00 05/02/17 08:00 05/02/17 08:00 05/02/17 08:00 GEN: WDWN, alert, cooperative, slightly confused HEENT: NCAT, PERRL, EOMI NECK: supple, no JVD, no lymphadenopathy CARDIAC: +S1S2 RRR LUNG: CTAB No WRR ABD: SOFT NT ND BSX4 NO MASSES NO HSM EXT: +pedal pulses, equal strength NEURO: AAOx3 SKIN warm, dry PSYCH normal mood, normal affect Intake and Output: 05/02/17 05/02/17 06:59 18:59 Intake Total 1500 Balance 1500 - Medications Medications: Current Medications Acetaminophen (Tylenol 325mg Tab) 650 mg PO Q6 PRN PRN Reason: Pain, Mild (1-3) Last Admin: 04/29/17 03:37 Dose: 650 mg Aspirin (Aspirin Chewable) 81 mg PO DAILY [facility] Last Admin: 05/02/17 09:04 Dose: 81 mg Atorvastatin Calcium (Lipitor) 40 mg PO DAILY [facility] Last Admin: 05/02/17 09:04 Dose: 40 mg Chlordiazepoxide (Librium) 25 mg PO Q12 [facility] Last Admin: 05/02/17 09:06 Dose: 25 mg Enoxaparin Sodium (Lovenox) 40 mg SC DAILY [facility] PRN Reason: Protocol Last Admin: 05/02/17 09:04 Dose: 40 mg Folic Acid (Folic Acid) 1 mg PO DAILY [facility] Last Admin: 05/02/17 09:04 Dose: 1 mg Gabapentin (Neurontin) 300 mg PO TID [facility] Last Admin: 05/02/17 09:04 Dose: 300 mg Potassium Chloride/Dextrose/Sod Cl (Potassium Chl 20 Meq In D5-1/2ns) 1,000 mls @ 125 mls/hr IV .Q8H [facility] Stop: 05/02/17 14:34 Last Admin: 05/02/17 05:50 Dose: 125 mls/hr Ibuprofen (Motrin Tab) 600 mg PO Q6 PRN PRN Reason: Pain, moderate (4-7) Last Admin: 04/29/17 09:33 Dose: 600 mg Multivitamins/Vitamin C (Multi-Delyn Liquid) 5 ml PO DAILY [facility] Last Admin: 05/02/17 09:12 Dose: 5 ml Quetiapine Fumarate (Seroquel) 25 mg PO HS [facility] Last Admin: 05/01/17 22:47 Dose: Not Given Thiamine HCl (Vitamin B1 Tab) 100 mg PO DAILY [facility] Last Admin: 05/02/17 09:04 Dose: 100 mg - Labs Labs: 05/02/17 05:25 05/02/17 05:25 Assessment and Plan - Assessment and Plan (Free Text) Plan: 56 y/o homeless male with PMHx significant for HTN, anemia, and EtOH abuse presented to ER with multiple falls with minor head trauma. He states that he has been feeling 'off balance' and falling more over the past several days. He denies EtOH associated with these falls. He has hit his head, but not passed out. Denies any focal weakness, but feels like both his feet are numb (this is ongoing, not new) and also c/o back pain (also chronic); he also feels off balance more lately as well. Denies any CP/SOB. CT head in ER showed Multiple bilateral lacune or infarcts and severe cortical atrophy. Patient admitted in telemetry for close monitoring. MRI head showed acute right MCA stroke Patient started on ASa, lovenox and statin. Neurology and Pt consulted He developed DT-s and was started on gabapentin 300 mg PO TID , Seroqule nd Ativan PRN 05/01/17 - pt mentating appropriately, however is weaker than yesterday, has not been getting out of bed. PT for further gait training tomorrow for safe discharge. Taper Librium to 25 mg po q12. 05/02/17 - for PT today, appears weak, mildly confused. 1. Acute Ischemic stroke Appears stable clinically Repeat CT head stable MRI of the head showed 1. Acute right MCA territory infarction involving the right narayanan radiata and basal ganglia. 2. Severe chronic microangiopathic changes and mild age-related global parenchymal volume loss. Neurology consult appreciated Continue ASa, statin Allow permissive hypertension Neurology consult appreciated CTA neck showed no Blood clot , carotid doppler showed no stenosis Echo showed normal EF and wall motion PT consulted . Continue gait training while in patient will repeat CT head since patient has some new left facial drop -- NO CHANGES 2.ETOH withdrawal/ Delirium tremens patient was tachycardic, tremulous, confused with visual hallucinations on admission Started Librium 50 mg po q6, TAPERED TO 25 MG PO Q12. Ativan 0.5 mg PO TID PRN discussed with neurology and recommended to start patient on gabapentin and Seroquel HS patient's mental status much improved today, not tremulous today Continue thiamine, folic acid, MVI, ativan PRN Continue gabapentin 300 mg po TID and Seroquel 25 mg Po HS Seizure precautions on AVasyst for safety 3. Gait instability with falls PT eval appreciated Pt appears weaker than yesterday, has not gotten out of bed, PT tomorrow for further training Continue PT while in patient. Patient has no insurance so can not discharge to any [facility] . 4. EtOH abuse chronic on Thiamine, folic acid, MVI Ativan PRN 5.HTN allow permissive hypertension 4. Thrombocytopenia- improved most likely chronic secondary to ETOH abuse 5.Hypokalemia gave 40 MEQ IV and 40 MEQ pO K resolved to 3.9 Repeat BMP in AM 6. DVT PPx SQ Lovenox
[2017-05-03 06:23] LABS: BASO % 0.5 % (0.0-2.0); EOS # 0.1 K/uL (0.0-0.7); EOS % 1.4 % (0.0-4.0); HEMATOCRIT 38.6 % (35.0-51.0); LYMPH # 0.7 K/uL (1.0-4.3); LYMPH % 7.2 % (20.0-40.0); MEAN CELL VOLUME 101.2 fl (80.0-94.0); MEAN CORPUSCULAR HEMOGLOBIN 34.4 pg (27.0-31.0); MEAN PLATELET VOLUME 7.8 fl (7.2-11.7); MONO # 2.1 K/uL (0.0-0.8); MONO % 22.2 % (0.0-10.0); NEUT # 6.5 K/uL (1.8-7.0); NEUT % 68.7 % (50.0-75.0); PLATELET COUNT 238 K/uL (130-400); RED CELL DISTRIBUTION WIDTH 14.2 % (11.5-14.5); WHITE BLOOD COUNT 9.4 K/uL (4.8-10.8)
[2017-05-03 06:30] LABS: ALB/GLOB RATIO 0.9 (1.0-2.1); ALKALINE PHOSPHATASE 58 U/L (38-126); ALT/SGPT 46 U/L (21-72); AST/SGOT 53 U/L (17-59); BILIRUBIN,TOTAL 1.2 mg/dl (0.2-1.3); BLOOD UREA NITROGEN 12 mg/dl (9-20); CARBON DIOXIDE 24 mmol/L (22-30); CHLORIDE 106 mmol/L (98-107); GFR AFRICAN-AMERICAN > 60; GLUCOSE,RANDOM 92 mg/dL (75-110); POTASSIUM 2.9 MMOL/L (3.6-5.0); SODIUM 139 mmol/l (132-148); TOTAL PROTEIN 6.4 G/DL (6.3-8.2)
[2017-05-03] MEDS: Multiple Vitamins Oral Solution PO SCH (08:57)
[2017-05-03] MEDS: Enoxaparin 40 mg Syringe SC SCH (08:58)
[2017-05-03] MEDS ORDERED: Potassium CL 10mEq/100ml 100 ML IVPB STA (10:09)
[2017-05-03 11:37] LABS: BASOPHIL 2 % (0-2); EOSINOPHIL 1 % (0-7); NEUTROPHIL 70 % (42-75); TOTAL CELLS COUNTED 100
[2017-05-03 11:38] LABS: PLATELET CLUMPS PRESENT
[2017-05-03] MEDS: Potassium Chloride 20 mEq/15 ml LIQ UD PO ONE ×2 (12:08→12:22)
[2017-05-03] MEDS ORDERED: Sodium Chloride 0.9% 1,000 ML IV SCH (12:45)
[2017-05-03] MEDS ORDERED: Flumazenil 0.1 mg/ml Inj (5ml) IVP ONE (13:42)
--- NOTE | 2017-05-03 13:46 | CP.PCM.PN ---
Subjective - Date & Time of Evaluation Date of Evaluation: 05/03/17 Time of Evaluation: 13:44 - Subjective Subjective: pt lethargic this morning for PT K repleted HD STABLE NAD XFER TO [facility] Objective - Vital Signs/Intake and Output Vital Signs (last 24 hours): Temp Pulse Resp BP Pulse Ox 98.5 F 76 18 129/69 96 05/03/17 12:23 05/03/17 12:23 05/03/17 12:23 05/03/17 12:23 05/03/17 12:23 Exam: GEN: WDWN, lethargic, cooperative HEENT: NCAT, PERRL, EOMI NECK: supple, no JVD, no lymphadenopathy CARDIAC: +S1S2 RRR LUNG: CTAB No WRR ABD: SOFT NT ND BSX4 NO MASSES NO HSM EXT: +pedal pulses, equal strength NEURO: AAOx3 SKIN warm, dry PSYCH normal mood, normal affect - Medications Medications: Current Medications Acetaminophen (Tylenol 325mg Tab) 650 mg PO Q6 PRN PRN Reason: Pain, Mild (1-3) Last Admin: 04/29/17 03:37 Dose: 650 mg Aspirin (Aspirin Chewable) 81 mg PO DAILY [facility] Last Admin: 05/03/17 08:57 Dose: 81 mg Atorvastatin Calcium (Lipitor) 40 mg PO DAILY [facility] Last Admin: 05/03/17 08:57 Dose: 40 mg Enoxaparin Sodium (Lovenox) 40 mg SC DAILY [facility] PRN Reason: Protocol Last Admin: 05/03/17 08:58 Dose: 40 mg Flumazenil (Romazicon) 0.2 mg IVP ONCE ONE Stop: 05/03/17 13:43 Folic Acid (Folic Acid) 1 mg PO DAILY [facility] Last Admin: 05/03/17 08:57 Dose: 1 mg Gabapentin (Neurontin) 300 mg PO TID [facility] Last Admin: 05/03/17 12:22 Dose: Not Given Sodium Chloride (Sodium Chloride 0.9%) 1,000 mls @ 999 mls/hr IV .Q1H1M [facility] Stop: 05/03/17 13:45 Ibuprofen (Motrin Tab) 600 mg PO Q6 PRN PRN Reason: Pain, moderate (4-7) Last Admin: 04/29/17 09:33 Dose: 600 mg Multivitamins/Vitamin C (Multi-Delyn Liquid) 5 ml PO DAILY [facility] Last Admin: 05/03/17 08:57 Dose: 5 ml Quetiapine Fumarate (Seroquel) 25 mg PO HS [facility] Last Admin: 05/02/17 21:46 Dose: 25 mg Thiamine HCl (Vitamin B1 Tab) 100 mg PO DAILY [facility] Last Admin: 05/03/17 08:57 Dose: 100 mg - Labs Labs: 05/03/17 05:35 05/03/17 05:35 Assessment and Plan - Assessment and Plan (Free Text) Plan: 56 y/o homeless male with PMHx significant for HTN, anemia, and EtOH abuse presented to ER with multiple falls with minor head trauma. He states that he has been feeling 'off balance' and falling more over the past several days. He denies EtOH associated with these falls. He has hit his head, but not passed out. Denies any focal weakness, but feels like both his feet are numb (this is ongoing, not new) and also c/o back pain (also chronic); he also feels off balance more lately as well. Denies any CP/SOB. CT head in ER showed Multiple bilateral lacune or infarcts and severe cortical atrophy. Patient admitted in telemetry for close monitoring. MRI head showed acute right MCA stroke Patient started on ASa, lovenox and statin. Neurology and Pt consulted He developed DT-s and was started on gabapentin 300 mg PO TID , Seroqule nd Ativan PRN 05/01/17 - pt mentating appropriately, however is weaker than yesterday, has not been getting out of bed. PT for further gait training tomorrow for safe discharge. Taper Librium to 25 mg po q12. 05/02/17 - for PT today, appears weak, mildly confused. 05/03/17 - PT did not see patient yesterday stating he was lethargic. Stopped Librium. Pt to have K for corrected K level and PT this afternoon. 1. Acute Ischemic stroke Appears stable clinically Repeat CT head stable MRI of the head showed 1. Acute right MCA territory infarction involving the right narayanan radiata and basal ganglia. 2. Severe chronic microangiopathic changes and mild age-related global parenchymal volume loss. Neurology consult appreciated Continue ASa, statin Allow permissive hypertension Neurology consult appreciated CTA neck showed no Blood clot , carotid doppler showed no stenosis Echo showed normal EF and wall motion PT consulted . Continue gait training while in patient will repeat CT head since patient has some new left facial drop -- NO CHANGES 2.ETOH withdrawal/ Delirium tremens patient was tachycardic, tremulous, confused with visual hallucinations on admission Started Librium 50 mg po q6, TAPERED TO 25 MG PO Q12. Ativan 0.5 mg PO TID PRN discussed with neurology and recommended to start patient on gabapentin and Seroquel HS patient's mental status much improved today, not tremulous today Continue thiamine, folic acid, MVI, ativan PRN Continue gabapentin 300 mg po TID and Seroquel 25 mg Po HS Seizure precautions on AVasyst for safety 3. Gait instability with falls PT eval appreciated Pt appears weaker than yesterday, has not gotten out of bed, PT tomorrow for further training Continue PT while in patient. Patient has no insurance so can not discharge to any [facility] . 4. EtOH abuse chronic on Thiamine, folic acid, MVI Ativan PRN 5.HTN allow permissive hypertension 4. Thrombocytopenia- improved most likely chronic secondary to ETOH abuse 5.Hypokalemia gave 40 MEQ IV and 40 MEQ pO K resolved to 3.9, down to 2.9 today Repeat BMP in AM 6. DVT PPx SQ Lovenox
[2017-05-03] MEDS ORDERED: KCL 40MEQ/NS 1L 1,000 ML IV SCH (14:00)
--- NOTE | 2017-05-04 10:18 | CP.PCM.PN ---
Subjective - Date & Time of Evaluation Date of Evaluation: 05/04/17 Time of Evaluation: 10:00 - Subjective Subjective: Patient seen and examined bedside. Lethargic with left side weakness, left facial droop, dysphagia and dysarthria. Responds to all questions appropriately , alert awake and oriented x 3. Keeps left eye closed with thick dry secretions Hemodynamically stable, afebrile states feeling depressed and tearful No acute issues overnight Objective - Vital Signs/Intake and Output Vital Signs (last 24 hours): Temp Pulse Resp BP Pulse Ox 98 F 69 20 164/82 H 98 05/04/17 08:45 05/04/17 08:45 05/04/17 08:45 05/04/17 08:45 05/04/17 08:45 - Medications Medications: Current Medications Acetaminophen (Tylenol 325mg Tab) 650 mg PO Q6 PRN PRN Reason: Pain, Mild (1-3) Last Admin: 04/29/17 03:37 Dose: 650 mg Aspirin (Aspirin Chewable) 81 mg PO DAILY [facility] Last Admin: 05/03/17 08:57 Dose: 81 mg Atorvastatin Calcium (Lipitor) 40 mg PO DAILY [facility] Last Admin: 05/03/17 08:57 Dose: 40 mg Enoxaparin Sodium (Lovenox) 40 mg SC DAILY [facility] PRN Reason: Protocol Last Admin: 05/03/17 08:58 Dose: 40 mg Folic Acid (Folic Acid) 1 mg PO DAILY [facility] Last Admin: 05/03/17 08:57 Dose: 1 mg Ibuprofen (Motrin Tab) 600 mg PO Q6 PRN PRN Reason: Pain, moderate (4-7) Last Admin: 04/29/17 09:33 Dose: 600 mg Multivitamins/Vitamin C (Multi-Delyn Liquid) 5 ml PO DAILY [facility] Last Admin: 05/03/17 08:57 Dose: 5 ml Quetiapine Fumarate (Seroquel) 25 mg PO HS [facility] Last Admin: 05/03/17 22:55 Dose: Not Given Thiamine HCl (Vitamin B1 Tab) 100 mg PO DAILY [facility] Last Admin: 05/03/17 08:57 Dose: 100 mg - Labs Labs: 05/03/17 05:35 05/03/17 05:35 - Constitutional Appears: Other (lethargic) - Head Exam Head Exam: ATRAUMATIC Additional comments: left facial droop - Eye Exam Eye Exam: EOMI, PERRL Pupil Exam: NORMAL ACCOMODATION, PERRL Additional comments: left eye thick secretions to eyelashes - ENT Exam ENT Exam: Mucous Membranes Moist, Normal Exam - Neck Exam Neck Exam: Full ROM, Normal Inspection - Respiratory Exam Respiratory Exam: absent: Accessory Muscle Use, Prolonged Expiratory Phase, Rhonchi, Wheezes Additional comments: coarse breath sounds bilaterally - Cardiovascular Exam Cardiovascular Exam: REGULAR RHYTHM, RRR, +S1, +S2. absent: JVD - GI/Abdominal Exam GI & Abdominal Exam: Soft, Normal Bowel Sounds. absent: Distended, Guarding, Tenderness, Mass, Rebound - Rectal Exam Rectal Exam: Deferred - Extremities Exam Extremities Exam: Full ROM, Normal Capillary Refill, Normal Inspection. absent : Calf Tenderness, Pedal Edema - Neurological Exam Neurological Exam: Alert, Awake Additional comments: lethargic left facial droop left side weakness dysarthria - Psychiatric Exam Psychiatric exam: Flat Affect - Skin Skin Exam: Dry, Normal Color, Warm. absent: Intact Assessment and Plan - Assessment and Plan (Free Text) Assessment: 56 y/o homeless male with PMHx significant for HTN, anemia, and EtOH abuse presented to ER with multiple falls with minor head trauma. He states that he has been feeling 'off balance' and falling more over the past several days. He denies EtOH associated with these falls. He has hit his head, but not passed out. Denies any focal weakness, but feels like both his feet are numb (this is ongoing, not new) and also c/o back pain (also chronic); he also feels off balance more lately as well. Denies any CP/SOB. CT head in ER showed Multiple bilateral lacune or infarcts and severe cortical atrophy. Patient admitted in telemetry for close monitoring. MRI head showed acute right MCA stroke Patient started on ASa, lovenox and statin. Neurology and Pt consulted He developed DT-s and was started on gabapentin 300 mg PO TID , Sero[place] nd Ativan PRN Patient appears to be lethargic today with dyarthria, dysphagia, left facial droop left side weakness.Will transfer to telemetry forr monitoring. Refused repeta MRI of the head 1. Acute Ischemic stroke lethargic with dysarthria, dysphagia,left facial droop and left side weakness MRI of the head 8/17 showed 1. Acute right MCA territory infarction involving the right narayanan radiata and basal ganglia. 2. Severe chronic microangiopathic changes and mild age-related global parenchymal volume loss. Neurology consult appreciated Continue ASa, statin CTA neck showed no Blood clot , carotid doppler showed no stenosis Echo showed normal EF and wall motion Refusing repeat MRI brain today . Patient appears more lethargic Will transfer to telemetry for close monitoring Keep NPO for now Will order Video swallow test eep heda of the bed elevated .Will order CXR PT consulted . Continue gait training while in patient . patient is full assist today. He will need YEHUDA placement for phjysical therappy had long discussion with daughter , nephew and sister in person and sister over the phone. Explained all findings, diagnosis and prognosis .Family will help with medicaid application 2.ETOH withdrawal/ Delirium tremens patient was tachycardic, tremulous, confused with visual hallucinations on admission was initially Started on librium tappering dose , ativan PRN -- discontinued due to sedation discussed with neurology and recommended to start patient on gabapentin and Seroquel HS that were discontinued today due to lethargy Continue thiamine, folic acid, MVI, ativan PRN Seizure precautions on AVasyst for safety 3. Gait instability with falls / full assist PT eval appreciated Pt appears weaker than yesterday,full assist today with left side weakness , leaning towards left Continue PT while in patient. will need [facility] family to help with medicaid application 4. EtOH abuse chronic on Thiamine, folic acid, MVI 5.HTN allow permissive hypertension 4. Thrombocytopenia- improved most likely chronic secondary to ETOH abuse 5.Hypokalemia replace and monitor 6. DVT PPx SQ Lovenox
[2017-05-04] MEDS: Enoxaparin 40 mg Syringe SC SCH (11:00)
[2017-05-04] MEDS: Multiple Vitamins Oral Solution PO SCH (11:04)
[2017-05-04 13:10] LABS: HEMATOCRIT 41.5 % (35.0-51.0); MEAN CELL VOLUME 100.8 fl (80.0-94.0); MEAN CORPUSCULAR HGB CONC 33.8 g/dL (33.0-37.0); RED CELL DISTRIBUTION WIDTH 14.1 % (11.5-14.5); WHITE BLOOD COUNT 10.5 K/uL (4.8-10.8)
[2017-05-04 13:38] LABS: BLOOD UREA NITROGEN 13 mg/dl (9-20); CALCIUM 9.3 mg/dL (8.4-10.2); CARBON DIOXIDE 23 mmol/L (22-30); CHLORIDE 109 mmol/L (98-107); GFR AFRICAN-AMERICAN > 60; GLUCOSE,RANDOM 88 mg/dL (75-110); POTASSIUM 3.3 MMOL/L (3.6-5.0); SODIUM 142 mmol/l (132-148)
[2017-05-04] MEDS ORDERED: Sodium Chloride 3% for Inhalation 4 ML VIAL.NEB IH PRN (17:43)
[2017-05-04] MEDS: Potassium CL 10 MEQ/50 ML 50 ML IVPB SCH ×2 (18:26→21:55)
[2017-05-04] MEDS: Albuterol-Ipratrop 3 mg / 0.5 (3 ml) UD INH SCH (19:07)
[2017-05-04] MEDS: Potassium Ch 20mEq in D5-1/2NS 1,000 ML IV SCH (22:00)
[2017-05-05] MEDS: Piperacillin/Tazobact 4.5 GM in Sodium Chloride 0.9% 100 ML IVPB SCH ×3 (01:25→17:36)
[2017-05-05 06:50] LABS: HEMATOCRIT 39.7 % (35.0-51.0); MEAN CELL VOLUME 99.8 fl (80.0-94.0); MEAN CORPUSCULAR HEMOGLOBIN 33.5 pg (27.0-31.0); MEAN CORPUSCULAR HGB CONC 33.6 g/dL (33.0-37.0); RED CELL DISTRIBUTION WIDTH 14.2 % (11.5-14.5); WHITE BLOOD COUNT 12.1 K/uL (4.8-10.8)
[2017-05-05 07:20] LABS: BLOOD UREA NITROGEN 12 mg/dl (9-20); CARBON DIOXIDE 23 mmol/L (22-30); CHLORIDE 110 mmol/L (98-107); GFR AFRICAN-AMERICAN > 60; GLUCOSE,RANDOM 133 mg/dL (75-110); SODIUM 142 mmol/l (132-148)
--- NOTE | 2017-05-05 07:31 | CP.PCM.PN ---
Subjective - Date & Time of Evaluation Date of Evaluation: 05/05/17 Time of Evaluation: 07:31 - Subjective Subjective: pt seen and examined lethargic, arousable to verbal and painful stimuli 100.1 99 155/83 94 on RA, improves wtih bronchodilators WBC 12.1 TODAY Temp 100.1 on vanc and zosyn for empiric tx of asp pneumonia monitor closely cxr yestrday LLL pneumonia modified barium swallw today Objective - Vital Signs/Intake and Output Vital Signs (last 24 hours): Temp Pulse Resp BP Pulse Ox 99.5 F 92 H 21 169/90 H 96 05/05/17 04:49 05/05/17 04:49 05/05/17 04:49 05/05/17 04:49 05/05/17 04:49 Vitals stable and reviewed GEN: thin, unkempt, LETHARGIC, arousable to verbal and painful stimuli HEENT: NCAT, PERRL, EOMI Neck: supple, no lymphadenopathy CARDIO: +S1S2, RRR, NO M/R/G LUNG: decreased breath sounds, +wheeze ABD: soft, NT, ND, no masses, no HSM EXT: no edema, pedal pulses Neuro: lethargic, weakness all 4 extremities Psych: unable toa ssess - Medications Medications: Current Medications Acetaminophen (Tylenol 325mg Tab) 650 mg PO Q6 PRN PRN Reason: Pain, Mild (1-3) Last Admin: 04/29/17 03:37 Dose: 650 mg Albuterol/Ipratropium (Duoneb 3 Mg/0.5 Mg (3 Ml) Ud) 3 ml INH RQID [facility] Last Admin: 05/04/17 19:07 Dose: 3 ml Aspirin (Aspirin Chewable) 81 mg PO DAILY [facility] Last Admin: 05/04/17 10:58 Dose: 81 mg Atorvastatin Calcium (Lipitor) 40 mg PO DAILY [facility] Last Admin: 05/04/17 10:59 Dose: 40 mg Enoxaparin Sodium (Lovenox) 40 mg SC DAILY [facility] PRN Reason: Protocol Last Admin: 05/04/17 11:00 Dose: 40 mg Folic Acid (Folic Acid) 1 mg PO DAILY [facility] Last Admin: 05/04/17 10:59 Dose: 1 mg Vancomycin HCl 1 gm/ Sodium (Chloride) 250 mls @ 166.667 mls/hr IVPB Q12 [facility] Last Admin: 05/04/17 22:12 Dose: 166.667 mls/hr Piperacillin Sod/Tazobactam (Sod 4.5 gm/ Sodium Chloride) 100 mls @ 100 mls/hr IVPB Q8 [facility] Last Admin: 05/05/17 01:25 Dose: 100 mls/hr Potassium Chloride/Dextrose/Sod Cl (Potassium Chl 20 Meq In D5-1/2ns) 1,000 mls @ 80 mls/hr IV .[id number] [facility] Stop: 05/05/17 17:47 Last Admin: 05/04/17 22:00 Dose: 80 mls/hr Ibuprofen (Motrin Tab) 600 mg PO Q6 PRN PRN Reason: Pain, moderate (4-7) Last Admin: 04/29/17 09:33 Dose: 600 mg Multivitamins/Vitamin C (Multi-Delyn Liquid) 5 ml PO DAILY [facility] Last Admin: 05/04/17 11:04 Dose: 5 ml Quetiapine Fumarate (Seroquel) 25 mg PO HS [facility] Last Admin: 05/03/17 22:55 Dose: Not Given Thiamine HCl (Vitamin B1 Tab) 100 mg PO DAILY [facility] Last Admin: 05/04/17 11:04 Dose: 100 mg - Labs Labs: 05/05/17 06:25 05/04/17 13:03 Assessment and Plan - Assessment and Plan (Free Text) Plan: 56 y/o homeless male with PMHx significant for HTN, anemia, and EtOH abuse presented to ER with multiple falls with minor head trauma. He states that he has been feeling 'off balance' and falling more over the past several days. He denies EtOH associated with these falls. He has hit his head, but not passed out. Denies any focal weakness, but feels like both his feet are numb (this is ongoing, not new) and also c/o back pain (also chronic); he also feels off balance more lately as well. Denies any CP/SOB. CT head in ER showed Multiple bilateral lacune or infarcts and severe cortical atrophy. Patient admitted in telemetry for close monitoring. MRI head showed acute right MCA stroke Patient started on ASa, lovenox and statin. Neurology and Pt consulted He developed DT-s and was started on gabapentin 300 mg PO TID , Seroqule nd Ativan PRN Patient appears to be lethargic today with dyarthria, dysphagia, left facial droop left side weakness.Will transfer to telemetry for monitoring. Refused repeat MRI of the head yesterday Possible Aspiration Pneumonia CXR shows left middle and lower lobe infiltrates WBC 12.1, TEMP 100.1 TODAY Empiric Zosyn and vanco Aspitration precautions NPO for now Barium swallow eval start d51/2 NS +20 KCl while NPO Neg blood cultures x3 (11/01 x2, 11/02 x1) Increasing Lethargy ABG patient saturating about 94% on RA Ammonia level, unknown if patient has chronic cirrhosis, LFTs WNL D/C all sedative agents Repeat URINE AND SPUTUM cultures Acute Ischemic stroke lethargic with dysarthria, dysphagia,left facial droop and left side weakness MRI of the head 04/28 showed 1. Acute right MCA territory infarction involving the right narayanan radiata and basal ganglia. 2. Severe chronic microangiopathic changes and mild age-related global parenchymal volume loss. Neurology consult appreciated Continue ASa, statin CTA neck showed no Blood clot , carotid doppler showed no stenosis Echo showed normal EF and wall motion Refusing repeat MRI brain today . Patient appears more lethargic Will monitor on tele for close monitoring Keep NPO for now Will order Video swallow test keep head of the bed elevated .Will order CXR - LLL LML PNA PT consulted . Continue gait training while in patient . patient is full assist today. He will need YEHUDA placement for physical therapy 05/04/17 Dr. Noel had long discussion with daughter, nephew and sister in person and sister over the phone. Explained all findings, diagnosis and prognosis. Family will help with medicaid application ETOH withdrawal/ Delirium tremens patient was tachycardic, tremulous, confused with visual hallucinations on admission was initially Started on librium tappering dose , ativan PRN -- discontinued due to sedation discussed with neurology and recommended to start patient on gabapentin and Seroquel HS that were discontinued today due to lethargy Continue thiamine, folic acid, MVI, Seizure precautions on AVasyst for safety Gait instability with falls / full assist PT eval appreciated Pt appears weaker than yesterday,full assist today with left side weakness , leaning towards left Continue PT while in patient. will need [facility] family to help with medicaid application EtOH abuse chronic on Thiamine, folic acid, MVI HTN allow permissive hypertension Thrombocytopenia- improved most likely chronic secondary to ETOH abuse Hypokalemia replace and monitor DVT PPx SQ Lovenox
[2017-05-05] MEDS: Albuterol-Ipratrop 3 mg / 0.5 (3 ml) UD INH SCH ×4 (07:56→19:23)
[2017-05-05] MEDS: Enoxaparin 40 mg Syringe SC SCH (09:06)
[2017-05-05] MEDS: Multiple Vitamins Oral Solution PO SCH (09:06)
[2017-05-05] MEDS: Potassium Ch 20mEq in D5-1/2NS 1,000 ML IV SCH (09:06)
--- NOTE | 2017-05-05 10:14 | RAD ---
PROCEDURE: CHEST RADIOGRAPH, 1 VIEW HISTORY: dysphagia COMPARISON: 08/27/2013. FINDINGS: LUNGS: The right lung is clear. There is low lung volume on the left and left perihilar consolidation. There is also left retrocardiac opacity. PLEURA: There is a small left pleural effusion. No large right pleural effusion. No pneumothorax. CARDIOVASCULAR: Normal. OSSEOUS STRUCTURES: No significant abnormalities. VISUALIZED UPPER ABDOMEN: Normal. OTHER FINDINGS: None. IMPRESSION: Left perihilar and lower lobe consolidation which may represent pneumonia and small left pleural effusion with Also noted is low lung volume on the left side, underlying fibrosis is also a consideration.
[2017-05-05] MEDS ORDERED: Potassium Ch 20mEq in D5-1/2NS 1,000 ML IV SCH (11:25)
[2017-05-05] MEDS ORDERED: Sodium Chloride 3% for Inhalation 4 ML VIAL.NEB IH PRN (12:35)
[2017-05-05] MEDS ORDERED: Magnesium Sulfate 2 gm/50 ml 2 GM/50 ML BAG IV ONE (12:45)
[2017-05-05 12:59] LABS: ABG ALLEN TEST YES; ARTERIAL BLOOD GAS HCO3 27.7 mmol/L (21-28); ARTERIAL BLOOD GAS PO2 69 mm/Hg (80-100)
[2017-05-05] MEDS: Potassium CL 10mEq/100ml 100 ML IVPB SCH ×4 (16:00→22:00)
--- NOTE | 2017-05-05 20:17 | MRI ---
EXAM: MR Head Without Intravenous Contrast EXAM DATE/TIME: 05/04/2017 10:13 AM CLINICAL HISTORY: 56 years old, male; Signs and symptoms; Other: Worsening stroke TECHNIQUE: Magnetic resonance images of the head/brain without intravenous contrast in multiple planes. COMPARISON: Prior head CT of 04/26/2017 FINDINGS: BRAIN: 2.5 x 1.5 cm rounded focus of restricted diffusion in the right basal ganglia, involving the right narayanan radiata. This is similar in appearance to the 04/26/[address], allowing for technical differences between the 2 exams. It does not appear significantly enlarged in size in the interim. Multifocal areas of increased T2 and FLAIR signal are seen in the white matter bilaterally, nonspecific in appearance, but most likely secondary to chronic small vessel ischemic changes, given the appearance. No new areas of restricted diffusion/acute infarction seen. No acute extra-axial fluid collections visualized. No evidence of midline shift, ventricular effacement, basilar cistern effacement, or other significant intracranial mass effect. No signal abnormality seen to suggest acute hemorrhage. VENTRICLES: See above. BONES/JOINTS: No acute bony abnormality identified. SINUSES: No evidence of sinus fluid levels. MASTOID AIR CELLS: Patchy fluid in the right mastoid air cells, compatible with mild mastoiditis. ORBITS: No acute intraorbital abnormality seen. IMPRESSION: - Findings compatible with the known recent right basal ganglia infarct. No new areas of infarction seen. No MR evidence of associated hemorrhage. - See above for remaining findings.
[2017-05-06] MEDS: Piperacillin/Tazobact 4.5 GM in Sodium Chloride 0.9% 100 ML IVPB SCH ×3 (00:43→17:10)
[2017-05-06 07:07] LABS: ALB/GLOB RATIO 0.8 (1.0-2.1); ALKALINE PHOSPHATASE 63 U/L (38-126); ALT/SGPT 32 U/L (21-72); AST/SGOT 24 U/L (17-59); BILIRUBIN,TOTAL 0.7 mg/dl (0.2-1.3); BLOOD UREA NITROGEN 12 mg/dl (9-20); CALCIUM 9.1 mg/dL (8.4-10.2); CARBON DIOXIDE 28 mmol/L (22-30); CHLORIDE 109 mmol/L (98-107); GFR AFRICAN-AMERICAN > 60; GLUCOSE,RANDOM 112 mg/dL (75-110); MAGNESIUM 2.4 MG/DL (1.6-2.3); PHOSPHOROUS 3.4 mg/dl (2.5-4.5); POTASSIUM 3.5 MMOL/L (3.6-5.0); SODIUM 144 mmol/l (132-148); TOTAL PROTEIN 6.4 G/DL (6.3-8.2)
[2017-05-06 07:09] LABS: BASO # 0.1 K/uL (0.0-0.2); BASO % 0.5 % (0.0-2.0); EOS # 0.1 K/uL (0.0-0.7); EOS % 0.6 % (0.0-4.0); HEMATOCRIT 38.4 % (35.0-51.0); LYMPH # 1.3 K/uL (1.0-4.3); LYMPH % 11.9 % (20.0-40.0); MEAN CORPUSCULAR HEMOGLOBIN 34.1 pg (27.0-31.0); MEAN CORPUSCULAR HGB CONC 33.4 g/dL (33.0-37.0); MEAN PLATELET VOLUME 7.7 fl (7.2-11.7); MONO # 1.8 K/uL (0.0-0.8); MONO % 15.5 % (0.0-10.0); NEUT # 8.1 K/uL (1.8-7.0); NEUT % 71.5 % (50.0-75.0); RED CELL DISTRIBUTION WIDTH 14.2 % (11.5-14.5); WHITE BLOOD COUNT 11.3 K/uL (4.8-10.8)
[2017-05-06] MEDS: Albuterol-Ipratrop 3 mg / 0.5 (3 ml) UD INH SCH ×4 (07:26→19:20)
[2017-05-06] MEDS: Multiple Vitamins Oral Solution PO SCH (09:04)
[2017-05-06] MEDS: Enoxaparin 40 mg Syringe SC SCH (09:04)
--- NOTE | 2017-05-06 10:26 | CP.PCM.PN ---
Subjective - Date & Time of Evaluation Date of Evaluation: 05/06/17 Time of Evaluation: 11:35 - Subjective Subjective: more arousable this morning answering simple questions requiring frequent suctioning NPO, for barium swallow eval today given better mentation, could not do yesterday due to lethargy placed on Venti mask yesterday 2/2 Hypoxia on ABG, SATURATION improved today afebrile 97.5, 123/71 67 16 100% on venti hypokalemia, repleted HD stable no other complaints for family meeting today Objective - Vital Signs/Intake and Output Vital Signs (last 24 hours): Temp Pulse Resp BP Pulse Ox 97.5 F L 67 16 123/71 100 05/06/17 05:21 05/06/17 05:21 05/06/17 05:21 05/06/17 05:21 05/06/17 05:21 GEN: thin, unkempt, LETHARGIC, arousable to verbal and painful stimuli, improved today HEENT: NCAT, PERRL, EOMI Neck: supple, no lymphadenopathy CARDIO: +S1S2, RRR, NO M/R/G LUNG: decreased breath sounds, +wheeze, congestion w coarse BS ABD: soft, NT, ND, no masses, no HSM EXT: no edema, pedal pulses Neuro: lethargic, weakness all 4 extremities Psych: unable toa ssess - Medications Medications: Current Medications Acetaminophen (Tylenol 325mg Tab) 650 mg PO Q6 PRN PRN Reason: Pain, Mild (1-3) Last Admin: 04/29/17 03:37 Dose: 650 mg Albuterol/Ipratropium (Duoneb 3 Mg/0.5 Mg (3 Ml) Ud) 3 ml INH RQID [facility] Last Admin: 05/06/17 07:26 Dose: 3 ml Aspirin (Aspirin Chewable) 81 mg PO DAILY [facility] Last Admin: 05/06/17 09:03 Dose: Not Given Atorvastatin Calcium (Lipitor) 40 mg PO DAILY [facility] Last Admin: 05/06/17 09:04 Dose: Not Given Enoxaparin Sodium (Lovenox) 40 mg SC DAILY [facility] PRN Reason: Protocol Last Admin: 05/06/17 09:04 Dose: 40 mg Folic Acid (Folic Acid) 1 mg PO DAILY [facility] Last Admin: 05/06/17 09:03 Dose: Not Given Vancomycin HCl 1 gm/ Sodium (Chloride) 250 mls @ 166.667 mls/hr IVPB Q12 [facility] Last Admin: 05/05/17 20:46 Dose: 166.667 mls/hr Piperacillin Sod/Tazobactam (Sod 4.5 gm/ Sodium Chloride) 100 mls @ 100 mls/hr IVPB Q8 [facility] Last Admin: 05/06/17 09:05 Dose: 100 mls/hr Potassium Chloride (Potassium Chloride 10 Meq/100 Ml) 100 mls @ 100 mls/hr IVPB Q1 [facility] Stop: 05/06/17 13:59 Ibuprofen (Motrin Tab) 600 mg PO Q6 PRN PRN Reason: Pain, moderate (4-7) Last Admin: 04/29/17 09:33 Dose: 600 mg Multivitamins/Vitamin C (Multi-Delyn Liquid) 5 ml PO DAILY [facility] Last Admin: 05/06/17 09:04 Dose: Not Given Quetiapine Fumarate (Seroquel) 25 mg PO HS [facility] Last Admin: 05/03/17 22:55 Dose: Not Given Thiamine HCl (Vitamin B1 Tab) 100 mg PO DAILY [facility] Last Admin: 05/06/17 09:04 Dose: Not Given - Labs Labs: 05/06/17 06:10 05/06/17 06:10 Assessment and Plan - Assessment and Plan (Free Text) Plan: 56 y/o homeless male with PMHx significant for HTN, anemia, and EtOH abuse presented to ER with multiple falls with minor head trauma. He states that he has been feeling 'off balance' and falling more over the past several days. He denies EtOH associated with these falls. He has hit his head, but not passed out. Denies any focal weakness, but feels like both his feet are numb (this is ongoing, not new) and also c/o back pain (also chronic); he also feels off balance more lately as well. Denies any CP/SOB. CT head in ER showed Multiple bilateral lacune or infarcts and severe cortical atrophy. Patient admitted in telemetry for close monitoring. MRI head showed acute right MCA stroke Patient started on ASa, lovenox and statin. Neurology and Pt consulted He developed DT-s and was started on gabapentin 300 mg PO TID , Seroqule nd Ativan PRN Patient appears to be lethargic today with dyarthria, dysphagia, left facial droop left side weakness.Will transfer to telemetry for monitoring. Refused repeat MRI of the head yesterday 05/06/17 NPO, for barium swallow eval today given better mentation, could not do yesterday due to lethargy frq suctioning placed on Venti mask yesterday 2/2 Hypoxia on ABG, saturating 100% for family meeting today discuss w nutrition today after barium swallow family meeting today, discussed aspiration pneumonia, instructed to stop attempting to feed patient. Nephew states he is in process of becoming POA, and Medicaid application was submitted yesterday. Possible Aspiration Pneumonia CXR shows left middle and lower lobe infiltrates WBC improving, afebrile 97.5, 123/71 67 16 100% on venti more arousable this morning answering simple questions requiring frequent suctioning Empiric Zosyn and vanco Aspitration precautions NPO for now Barium swallow eval start d51/2 NS +20 KCl while NPO Neg blood cultures x3 (11/01 x2, 11/02 x1) Sputum culture still pending , gm stain mod growth Increasing Lethargy more arousable this morning answering simple questions requiring frequent suctioning ABG patient saturating about 94% on RA--was hypoxic yesterday placed on venti past Ammonia level, unknown if patient has chronic cirrhosis, LFTs WNL D/C all sedative agents Repeat URINE AND SPUTUM cultures Acute Ischemic stroke lethargic with dysarthria, dysphagia,left facial droop and left side weakness MRI of the head 04/28 showed 1. Acute right MCA territory infarction involving the right narayanan radiata and basal ganglia. 2. Severe chronic microangiopathic changes and mild age-related global parenchymal volume loss. Neurology consult appreciated Continue ASa, statin CTA neck showed no Blood clot , carotid doppler showed no stenosis Echo showed normal EF and wall motion Refusing repeat MRI brain today . Patient appears more lethargic Will monitor on tele for close monitoring Keep NPO for now Will order Video swallow test keep head of the bed elevated .Will order CXR - LLL LML PNA PT consulted . Continue gait training while in patient . patient is full assist today. He will need YEHU[facility] placement for physical therapy 05/04/17 Dr. Noel had long discussion with daughter, nephew and sister in person and sister over the phone. Explained all findings, diagnosis and prognosis. Family will help with medicaid application ETOH withdrawal/ Delirium tremens patient was tachycardic, tremulous, confused with visual hallucinations on admission was initially Started on librium tappering dose , ativan PRN -- discontinued due to sedation discussed with neurology and recommended to start patient on gabapentin and Seroquel HS that were discontinued today due to lethargy Continue thiamine, folic acid, MVI, Seizure precautions on AVasyst for safety Gait instability with falls / full assist PT eval appreciated Pt appears weaker than yesterday,full assist today with left side weakness , leaning towards left Continue PT while in patient. will need [employer] family to help with medicaid application EtOH abuse chronic on Thiamine, folic acid, MVI HTN allow permissive hypertension Thrombocytopenia- improved most likely chronic secondary to ETOH abuse Hypokalemia replace and monitor DVT PPx SQ Lovenox
[2017-05-06 11:04] VITALS: BMI 22.3
[2017-05-06] MEDS: Potassium CL 10mEq/100ml 100 ML IVPB SCH ×3 (13:20→17:05)
[2017-05-06] MEDS ORDERED: Barium Sulfate Susp 0.1% w/v, 0.1% w/w 450 mL Bottle PO ONE (14:30)
--- NOTE | 2017-05-06 15:41 | RAD ---
PROCEDURE: Modified barium swallow study. HISTORY: dysphagia COMPARISON: None available. TECHNIQUE: Under fluoroscopic guidance, barium meals of various consistency were administered to the patient by the speech pathologist. FINDINGS: The study demonstrated penetration and aspiration with honey and puree liquids Approximately 110.8 seconds fluoroscopy time utilized during this procedure. Radiation dose = 5.11 mGy IMPRESSION: Penetration and aspiration demonstrated with honey thick and puree liquids
[2017-05-07] MEDS: Piperacillin/Tazobact 4.5 GM in Sodium Chloride 0.9% 100 ML IVPB SCH ×3 (00:18→16:57)
[2017-05-07] MEDS: Potassium Ch 20mEq in D5-1/2NS 1,000 ML IV SCH ×2 (06:51→08:50)
[2017-05-07] MEDS: Albuterol-Ipratrop 3 mg / 0.5 (3 ml) UD INH SCH ×4 (07:23→19:10)
[2017-05-07 07:52] LABS: BASO # 0.1 K/uL (0.0-0.2); BASO % 0.7 % (0.0-2.0); EOS # 0.1 K/uL (0.0-0.7); EOS % 1.6 % (0.0-4.0); HEMATOCRIT 33.7 % (35.0-51.0); LYMPH # 1.2 K/uL (1.0-4.3); LYMPH % 13.5 % (20.0-40.0); MEAN CELL VOLUME 100.1 fl (80.0-94.0); MEAN CORPUSCULAR HEMOGLOBIN 34.7 pg (27.0-31.0); MEAN CORPUSCULAR HGB CONC 34.6 g/dL (33.0-37.0); MEAN PLATELET VOLUME 7.9 fl (7.2-11.7); MONO # 0.9 K/uL (0.0-0.8); MONO % 9.7 % (0.0-10.0); NEUT # 6.7 K/uL (1.8-7.0); NEUT % 74.5 % (50.0-75.0); NRBC % 0.1 % (0.0-0.0); RED CELL DISTRIBUTION WIDTH 14.2 % (11.5-14.5)
--- NOTE | 2017-05-07 08:14 | CP.PCM.PN ---
Subjective - Date & Time of Evaluation Date of Evaluation: 05/07/17 Time of Evaluation: 08:00 - Subjective Subjective: Patient seen and examined bedside.Lying in bed in NAD. Lethargic, responding simple questions, with dyarthria and dysphagia , left side weakness , left facial droop. keeps left eye closed but opens on command Coughing spells with secretions notable. Bp 168/83 Hr 55 afebrile saturating 98 % on 2 L O2 via NC Objective - Vital Signs/Intake and Output Vital Signs (last 24 hours): Temp Pulse Resp BP Pulse Ox 98.3 F 59 L 18 149/78 98 05/07/17 08:11 05/07/17 08:11 05/07/17 08:11 05/07/17 08:11 05/07/17 08:11 - Medications Medications: Current Medications Acetaminophen (Tylenol 325mg Tab) 650 mg PO Q6 PRN PRN Reason: Pain, Mild (1-3) Last Admin: 04/29/17 03:37 Dose: 650 mg Albuterol/Ipratropium (Duoneb 3 Mg/0.5 Mg (3 Ml) Ud) 3 ml INH RQID [facility] Last Admin: 05/07/17 07:23 Dose: 3 ml Amlodipine Besylate (Norvasc) 5 mg PO DAILY [facility] Aspirin (Aspirin Chewable) 81 mg PO DAILY [facility] Last Admin: 05/06/17 09:03 Dose: Not Given Atorvastatin Calcium (Lipitor) 40 mg PO DAILY [facility] Last Admin: 05/06/17 09:04 Dose: Not Given Enoxaparin Sodium (Lovenox) 40 mg SC DAILY [facility] PRN Reason: Protocol Last Admin: 05/06/17 09:04 Dose: 40 mg Folic Acid (Folic Acid) 1 mg PO DAILY [facility] Last Admin: 05/06/17 09:03 Dose: Not Given Vancomycin HCl 1 gm/ Sodium (Chloride) 250 mls @ 166.667 mls/hr IVPB Q12 [facility] Last Admin: 05/06/17 20:51 Dose: 166.667 mls/hr Piperacillin Sod/Tazobactam (Sod 4.5 gm/ Sodium Chloride) 100 mls @ 100 mls/hr IVPB Q8 [facility] Last Admin: 05/07/17 00:18 Dose: 100 mls/hr Potassium Chloride/Dextrose/Sod Cl (Potassium Chl 20 Meq In D5-1/2ns) 1,000 mls @ 125 mls/hr IV .Q8H [facility] Stop: 05/07/17 17:14 Last Admin: 05/07/17 06:51 Dose: 125 mls/hr Ibuprofen (Motrin Tab) 600 mg PO Q6 PRN PRN Reason: Pain, moderate (4-7) Last Admin: 04/29/17 09:33 Dose: 600 mg Multivitamins/Vitamin C (Multi-Delyn Liquid) 5 ml PO DAILY [facility] Last Admin: 05/06/17 09:04 Dose: Not Given Quetiapine Fumarate (Seroquel) 25 mg PO HS [facility] Last Admin: 05/03/17 22:55 Dose: Not Given Thiamine HCl (Vitamin B1 Tab) 100 mg PO DAILY [facility] Last Admin: 05/06/17 09:04 Dose: Not Given - Labs Labs: 05/07/17 06:00 05/06/17 06:10 - Constitutional Appears: Confused, Chronically Ill, Other (lethargic) - Head Exam Head Exam: ATRAUMATIC, NORMOCEPHALIC - Eye Exam Eye Exam: EOMI, PERRL - ENT Exam ENT Exam: Mucous Membranes Dry - Neck Exam Neck Exam: Normal Inspection - Respiratory Exam Respiratory Exam: absent: Accessory Muscle Use, Prolonged Expiratory Phase, Wheezes, Respiratory Distress - Cardiovascular Exam Cardiovascular Exam: REGULAR RHYTHM, RRR, +S1, +S2. absent: JVD - GI/Abdominal Exam GI & Abdominal Exam: Soft, Normal Bowel Sounds. absent: Distended, Guarding, Tenderness, Rebound - Rectal Exam Rectal Exam: Deferred - Extremities Exam Extremities Exam: Full ROM, Normal Capillary Refill, Normal Inspection. absent : Pedal Edema - Neurological Exam Additional comments: lethargic , follow simple command and answers simple questions left facial droop left side weakness dysarthria and dysphagia - Psychiatric Exam Psychiatric exam: Depressed, Flat Affect - Skin Skin Exam: Dry, Normal Color, Warm Assessment and Plan - Assessment and Plan (Free Text) Assessment: 56 y/o homeless male with PMHx significant for HTN, anemia, and EtOH abuse presented to ER with multiple falls with minor head trauma. He states that he has been feeling 'off balance' and falling more over the past several days. He denies EtOH associated with these falls. He has hit his head, but not passed out. Denies any focal weakness, but feels like both his feet are numb (this is ongoing, not new) and also c/o back pain (also chronic); he also feels off balance more lately as well. Denies any CP/SOB. CT head in ER showed Multiple bilateral lacune or infarcts and severe cortical atrophy. Patient admitted in telemetry for close monitoring. MRI head showed acute right MCA stroke Patient started on ASa, lovenox and statin. Neurology and PT consulted He developed DT-s and was started on gabapentin 300 mg PO TID , Seroqule and Ativan PRN Patient became more lethargic with dyarthria, dysphagia, left facial droop and left side weakness.Repeat MRI of the head showed Findings compatible with the known recent right basal ganglia infarct. No new areas of infarction seen. No MR evidence of associated hemorrhage. At present in telemetry still lethargic but awake, following simple commands with dysarthria and dysphagia. 1. Aspiration Pneumonia CXR shows left middle and lower lobe infiltrates WBC 9 K, afebrile keep head of the bed elevated requent suctioning Empiric Zosyn and vanco Aspitration precautions NPO for now Barium swallow showed severe dysphagia Continue D51/2 NS +20 KCl while NPO Sputum culture still pending , gram stain mod growth 2.Acute Ischemic stroke lethargic with dysarthria, dysphagia,left facial droop and left side weakness MRI of the head 04/28 showed 1. Acute right MCA territory infarction involving the right narayanan radiata and basal ganglia. 2. Severe chronic microangiopathic changes and mild age-related global parenchymal volume loss. Neurology consult appreciated Continue ASa, statin CTA neck showed no Blood clot , carotid doppler showed no stenosis Echo showed normal EF and wall motion Repeat MRI 05/04 showed known recent basal ganglia infarct patient appears more lethargic but follows commands and answers simple questions continue tele monitoring Keep NPO for now since patient failed swallow eval keep head of the bed elevated . PT consulted . Continue gait training while in patient . Patient is full assist He will need [facility] placement for physical therapy 05/04/17 had long discussion with daughter, nephew and sister in person and sister over the phone. Explained all findings, diagnosis and prognosis. Family started medicaid application and nephew is getting POA 3.ETOH withdrawal/ Delirium tremens-- improved but now lethargic due to CVA patient was tachycardic, tremulous, confused with visual hallucinations on admission was initially Started on librium tappering dose , ativan PRN -- discontinued due to sedation discussed with neurology and recommended to start patient on gabapentin and Seroquel HS that were discontinued due to lethargy Continue thiamine, folic acid, MVI, Seizure precautions on AVasyst for safety 4.Gait instability with falls / full assist PT eval appreciated Patient is full assist,with left side weakness Continue PT while in patient. will need [facility] family to help with medicaid application 5.EtOH abuse chronic on Thiamine, folic acid, MVI 6.HTN allow permissive hypertension started enalapril IV PRN for SBP > 150 7.Thrombocytopenia- improved most likely chronic secondary to ETOH abuse 8.Hypokalemia replace and monitor Kcl runs 40 MEQ IV continue Kvl in IVF daily 9.DVT PPx SQ Lovenox
[2017-05-07] MEDS: Enoxaparin 40 mg Syringe SC SCH (08:41)
[2017-05-07] MEDS: Multiple Vitamins Oral Solution PO SCH (08:41)
[2017-05-07 09:00] LABS: ALB/GLOB RATIO 0.7 (1.0-2.1); ALKALINE PHOSPHATASE 56 U/L (38-126); ALT/SGPT 28 U/L (21-72); AST/SGOT 38 U/L (17-59); BILIRUBIN,TOTAL 0.6 mg/dl (0.2-1.3); BLOOD UREA NITROGEN 11 mg/dl (9-20); CARBON DIOXIDE 28 mmol/L (22-30); CHLORIDE 109 mmol/L (98-107); GFR AFRICAN-AMERICAN > 60; GLUCOSE,RANDOM 97 mg/dL (75-110); MAGNESIUM 1.9 MG/DL (1.6-2.3); PHOSPHOROUS 3.9 mg/dl (2.5-4.5); POTASSIUM 2.9 MMOL/L (3.6-5.0); SODIUM 143 mmol/l (132-148); TOTAL PROTEIN 6.1 G/DL (6.3-8.2)
[2017-05-07] MEDS: Potassium CL 10 MEQ/50 ML 50 ML IVPB SCH ×4 (11:51→15:43)
[2017-05-07] MEDS: EnalaprilAT 1.25 mg/ml Inj IV PRN (21:40)
[2017-05-08] MEDS: Potassium Chl 40 mEq in D5-1/2 1,000 ML IV SCH ×4 (01:06→16:01)
[2017-05-08] MEDS: Piperacillin/Tazobact 4.5 GM in Sodium Chloride 0.9% 100 ML IVPB SCH ×3 (01:06→16:24)
[2017-05-08 07:19] LABS: BLOOD UREA NITROGEN 8 mg/dl (9-20); CALCIUM 8.9 mg/dL (8.4-10.2); CARBON DIOXIDE 28 mmol/L (22-30); CHLORIDE 105 mmol/L (98-107); GFR AFRICAN-AMERICAN > 60; GLUCOSE,RANDOM 104 mg/dL (75-110); POTASSIUM 3.3 MMOL/L (3.6-5.0); SODIUM 140 mmol/l (132-148)
[2017-05-08] MEDS: Albuterol-Ipratrop 3 mg / 0.5 (3 ml) UD INH SCH ×4 (07:19→19:31)
[2017-05-08] MEDS: Multiple Vitamins Oral Solution PO SCH (09:24)
[2017-05-08] MEDS: Enoxaparin 40 mg Syringe SC SCH (09:24)
[2017-05-08] MEDS: EnalaprilAT 1.25 mg/ml Inj IV PRN ×2 (09:25→17:30)
--- NOTE | 2017-05-08 10:51 | CP.PCM.PN ---
Subjective - Date & Time of Evaluation Date of Evaluation: 05/08/17 Time of Evaluation: 08:30 - Subjective Subjective: Patient seen and examined bedside.Lying in bed in NAD. Lethargic, responding simple questions, with dyarthria and dysphagia , left side weakness , left facial droop. keeps left eye closed but opens on command Coughing spells with secretions notable. Bp 166/82 HR 61 afebrile saturating 100 % on venti mask No acute issues overnight NPO on maintenance IVF Objective - Vital Signs/Intake and Output Vital Signs (last 24 hours): Temp Pulse Resp BP Pulse Ox 98 F 61 18 166/82 H 100 05/08/17 08:14 05/08/17 08:14 05/08/17 08:14 05/08/17 09:25 05/08/17 08:14 - Medications Medications: Current Medications Acetaminophen (Tylenol 325mg Tab) 650 mg PO Q6 PRN PRN Reason: Pain, Mild (1-3) Last Admin: 04/29/17 03:37 Dose: 650 mg Albuterol/Ipratropium (Duoneb 3 Mg/0.5 Mg (3 Ml) Ud) 3 ml INH RQID [facility] Last Admin: 05/08/17 07:19 Dose: 3 ml Aspirin (Aspirin Chewable) 81 mg PO DAILY [facility] Last Admin: 05/08/17 09:25 Dose: Not Given Atorvastatin Calcium (Lipitor) 40 mg PO DAILY [facility] Last Admin: 05/08/17 09:25 Dose: Not Given Enalaprilat (Vasotec Iv) 1.25 mg IV Q6 PRN PRN Reason: Hypertension Last Admin: 05/08/17 09:25 Dose: 1.25 mg Enoxaparin Sodium (Lovenox) 40 mg SC DAILY [facility] PRN Reason: Protocol Last Admin: 05/08/17 09:24 Dose: 40 mg Folic Acid (Folic Acid) 1 mg PO DAILY [facility] Last Admin: 05/08/17 09:25 Dose: Not Given Vancomycin HCl 1 gm/ Sodium (Chloride) 250 mls @ 166.667 mls/hr IVPB Q12 [facility] Last Admin: 05/08/17 09:23 Dose: 166.667 mls/hr Piperacillin Sod/Tazobactam (Sod 4.5 gm/ Sodium Chloride) 100 mls @ 100 mls/hr IVPB Q8 [facility] Last Admin: 05/08/17 09:22 Dose: 100 mls/hr Potassium Chloride/Dextrose/Sod Cl (Potassium Chl 40 Meq In D5-1/2ns) 1,000 mls @ 125 mls/hr IV .Q8H [facility] Stop: 05/08/17 23:43 Last Admin: 05/08/17 09:27 Dose: Not Given Potassium Chloride (Potassium Cl 10meq/50ml Sterile Water) 50 mls @ 50 mls/hr IVPB Q1 [facility] Stop: 05/08/17 12:59 Ibuprofen (Motrin Tab) 600 mg PO Q6 PRN PRN Reason: Pain, moderate (4-7) Last Admin: 04/29/17 09:33 Dose: 600 mg Multivitamins/Vitamin C (Multi-Delyn Liquid) 5 ml PO DAILY [facility] Last Admin: 05/08/17 09:24 Dose: Not Given Quetiapine Fumarate (Seroquel) 25 mg PO HS [facility] Last Admin: 05/03/17 22:55 Dose: Not Given Thiamine HCl (Vitamin B1 Tab) 100 mg PO DAILY [facility] Last Admin: 05/08/17 09:24 Dose: Not Given - Labs Labs: 05/07/17 06:00 05/08/17 05:30 - Constitutional Appears: Confused, Other (lethargic) - Head Exam Head Exam: ATRAUMATIC, NORMOCEPHALIC Additional comments: left facial droop - Eye Exam Eye Exam: EOMI, PERRL - ENT Exam ENT Exam: Mucous Membranes Dry - Neck Exam Neck Exam: Full ROM, Normal Inspection - Respiratory Exam Respiratory Exam: Decreased Breath Sounds (right hemithorax). absent: Rhonchi, Wheezes Additional comments: coughing spells and upper respiratory secretions - Cardiovascular Exam Cardiovascular Exam: REGULAR RHYTHM, RRR, +S1, +S2. absent: JVD - GI/Abdominal Exam GI & Abdominal Exam: Soft, Normal Bowel Sounds. absent: Distended, Guarding, Rebound - Rectal Exam Rectal Exam: Deferred - Extremities Exam Extremities Exam: Normal Capillary Refill, Normal Inspection - Neurological Exam Additional comments: left side weakness left facial droop dysarthria dysphagia lethargic follows simple commands, answers simple questions - Psychiatric Exam Psychiatric exam: Flat Affect - Skin Skin Exam: Dry, Normal Color, Warm Assessment and Plan - Assessment and Plan (Free Text) Assessment: 56 y/o homeless male with PMHx significant for HTN, anemia, and EtOH abuse presented to ER with multiple falls with minor head trauma. He states that he has been feeling 'off balance' and falling more over the past several days. He denies EtOH associated with these falls. He has hit his head, but not passed out. Denies any focal weakness, but feels like both his feet are numb (this is ongoing, not new) and also c/o back pain (also chronic); he also feels off balance more lately as well. Denies any CP/SOB. CT head in ER showed Multiple bilateral lacune or infarcts and severe cortical atrophy. Patient admitted in telemetry for close monitoring. MRI head showed acute right MCA stroke Patient started on ASa, lovenox and statin. Neurology and PT consulted He developed DT-s and was started on gabapentin 300 mg PO TID , Seroqule and Ativan PRN Patient became more lethargic with dyarthria, dysphagia, left facial droop and left side weakness.Repeat MRI of the head showed Findings compatible with the known recent right basal ganglia infarct. No new areas of infarction seen. No MR evidence of associated hemorrhage. At present in telemetry still lethargic but awake, following simple commands with dysarthria and dysphagia. 1. Aspiration Pneumonia CXR shows left middle and lower lobe infiltrates WBC 9 K, afebrile keep head of the bed elevated frequent suctioning Empiric Zosyn and vanco Aspitration precautions NPO for now Barium swallow showed severe dysphagia Continue D51/2 NS +20 KCl while NPO Sputum culture positive for gram negative bouchra and gram positive cocci . 2.Acute Ischemic stroke lethargic with dysarthria, dysphagia,left facial droop and left side weakness MRI of the head 04/28 showed 1. Acute right MCA territory infarction involving the right narayanan radiata and basal ganglia. 2. Severe chronic microangiopathic changes and mild age-related global parenchymal volume loss. Neurology consult appreciated Continue ASa, statin CTA neck showed no Blood clot , carotid doppler showed no stenosis Echo showed normal EF and wall motion Repeat MRI 05/04 showed known recent basal ganglia infarct patient appears more lethargic but follows commands and answers simple questions continue tele monitoring Keep NPO for now since patient failed swallow eval keep head of the bed elevated . PT consulted . Continue gait training while in patient . Patient is full assist He will need [facility] placement for physical therapy 05/04/17 had long discussion with daughter, nephew and sister in person and sister over the phone. Explained all findings, diagnosis and prognosis. Family started medicaid application and nephew is getting POA 3.ETOH withdrawal/ Delirium tremens-- improved but now lethargic due to CVA patient was tachycardic, tremulous, confused with visual hallucinations on admission was initially Started on librium tappering dose , ativan PRN -- discontinued due to sedation discussed with neurology and recommended to start patient on gabapentin and Seroquel HS that were discontinued due to lethargy Continue thiamine, folic acid, MVI, Seizure precautions on AVasyst for safety 4.Gait instability with falls / full assist PT eval appreciated Patient is full assist,with left side weakness Continue PT while in patient. will need [facility] family to help with medicaid application 5.EtOH abuse chronic on Thiamine, folic acid, MVI 6.HTN allow permissive hypertension started enalapril IV PRN for SBP > 150 7.Thrombocytopenia- improved most likely chronic secondary to ETOH abuse 8.Hypokalemia replace and monitor Kcl runs 20 MEQ IV continue KCl in IVF daily 9.DVT PPx SQ Lovenox
[2017-05-08] MEDS: Potassium CL 10 MEQ/50 ML 50 ML IVPB SCH ×2 (11:52→13:06)
[2017-05-09] MEDS: Piperacillin/Tazobact 4.5 GM in Sodium Chloride 0.9% 100 ML IVPB SCH ×3 (00:36→17:48)
[2017-05-09 06:14] LABS: MEAN CORPUSCULAR HEMOGLOBIN 33.5 pg (27.0-31.0); MEAN CORPUSCULAR HGB CONC 33.5 g/dL (33.0-37.0); RED CELL DISTRIBUTION WIDTH 13.8 % (11.5-14.5); WHITE BLOOD COUNT 17.4 K/uL (4.8-10.8)
[2017-05-09 06:30] LABS: BLOOD UREA NITROGEN 8 mg/dl (9-20); CALCIUM 8.9 mg/dL (8.4-10.2); CARBON DIOXIDE 28 mmol/L (22-30); CHLORIDE 100 mmol/L (98-107); GFR AFRICAN-AMERICAN > 60; GLUCOSE,RANDOM 115 mg/dL (75-110); POTASSIUM 3.2 MMOL/L (3.6-5.0); SODIUM 136 mmol/l (132-148)
[2017-05-09] MEDS: Albuterol-Ipratrop 3 mg / 0.5 (3 ml) UD INH SCH ×4 (07:19→19:24)
--- NOTE | 2017-05-09 09:43 | CP.PCM.CON ---
<Bri Mejia - Last Filed: 05/09/17 14:50> History of Present Illness - History of Present Illness History of Present Illness: GI Fellow PGY4 Consult Note This is a 56y homeless male with a pmhx of alcohol abuse, HTN, chronic back pain pw co multiple falls and issues with gait for 2 days [facility]READER. Per ER records, pt reports falls while drinking alcohol and minor head trauma so came to ER for further evaluation. Pt was found to have an acute CVA on CT head and was admitted with neurology consult. During the hospital stay pt developed worsening dysarthria and dysphasia with left sided weakness, lethargy and aspiration PNA. Pt also had DTs during this visit. GI consult was requested for PEG tube placement with pt failing swallow elevations and barium swallow with aspiration of liquids. It was difficult to gather history from patient due to severe dysarthria as patient answered simple yes and no questions, also pt confirmed that he would like his Nephew to be involved in decision making regarding PEG tube placement. A call was placed to ryder Fried at and voice message was left with a call return. No prior reported hx of colonoscopy or EGD. ROS: A 12pt ROS was obtained and was negative except as above. PmHx: As stated in HPI PsHx: None reported SHx: Hx of alcohol abuse-reported beer and hard liquor vodka-unable to quantify FHx: Hx CAD Past Patient History - Past Medical History & Family History Past Medical History?: Yes - Past Social History Alcohol: Occasional Drugs: Denies - CARDIAC Hx Hypertension: Yes - PULMONARY Hx Tuberculosis: No - NEUROLOGICAL HX Cerebrovascular Accident: No - HEMATOLOGICAL/ONCOLOGICAL Hx Anemia: Yes Hx Human Immunodeficiency Virus (HIV): No - MUSCULOSKELETAL/RHEUMATOLOGICAL Hx Arthritis: Yes - GASTROINTESTINAL Hx Gastrointestinal Disorders: Yes Hx Colitis: Yes - PSYCHIATRIC Hx Substance Use: No - SURGICAL HISTORY Hx Surgeries: Yes Other/Comment: hemmroids - ANESTHESIA Hx Anesthesia: Yes Hx Anesthesia Reactions: No Hx Malignant Hyperthermia: No Meds Allergies/Adverse Reactions: Allergies Allergy/AdvReac Type Severity Reaction Status Date / Time No Known Allergies Allergy Verified 04/26/17 23:00 - Medications Medications: Current Medications Acetaminophen (Tylenol 325mg Tab) 650 mg PO Q6 PRN PRN Reason: Pain, Mild (1-3) Last Admin: 04/29/17 03:37 Dose: 650 mg Albuterol/Ipratropium (Duoneb 3 Mg/0.5 Mg (3 Ml) Ud) 3 ml INH RQID [facility] Last Admin: 05/09/17 07:19 Dose: 3 ml Aspirin (Aspirin Chewable) 81 mg PO DAILY [facility] Last Admin: 05/08/17 09:25 Dose: Not Given Atorvastatin Calcium (Lipitor) 40 mg PO DAILY [facility] Last Admin: 05/08/17 09:25 Dose: Not Given Enalaprilat (Vasotec Iv) 1.25 mg IV Q6 PRN PRN Reason: Hypertension Last Admin: 05/08/17 17:30 Dose: 1.25 mg Enoxaparin Sodium (Lovenox) 40 mg SC DAILY [facility] PRN Reason: Protocol Last Admin: 05/08/17 09:24 Dose: 40 mg Folic Acid (Folic Acid) 1 mg PO DAILY [facility] Last Admin: 05/08/17 09:25 Dose: Not Given Vancomycin HCl 1 gm/ Sodium (Chloride) 250 mls @ 166.667 mls/hr IVPB Q12 [facility] Last Admin: 05/08/17 20:31 Dose: 166.667 mls/hr Piperacillin Sod/Tazobactam (Sod 4.5 gm/ Sodium Chloride) 100 mls @ 100 mls/hr IVPB Q8 [facility] Last Admin: 05/09/17 00:36 Dose: 100 mls/hr Potassium Chloride (Potassium Cl 10meq/50ml Sterile Water) 50 mls @ 50 mls/hr IVPB Q1 [facility] Stop: 05/09/17 10:59 Ibuprofen (Motrin Tab) 600 mg PO Q6 PRN PRN Reason: Pain, moderate (4-7) Last Admin: 04/29/17 09:33 Dose: 600 mg Multivitamins/Vitamin C (Multi-Delyn Liquid) 5 ml PO DAILY [facility] Last Admin: 05/08/17 09:24 Dose: Not Given Quetiapine Fumarate (Seroquel) 25 mg PO HS [facility] Last Admin: 05/03/17 22:55 Dose: Not Given Thiamine HCl (Vitamin B1 Tab) 100 mg PO DAILY [facility] Last Admin: 05/08/17 09:24 Dose: Not Given Physical Exam - Constitutional Appears: In Acute Distress, Cachectic, Chronically Ill Additional comments: Moderate Respiratory distress, unable to clear secretions, cough, severe dysarthria, lethargic - Head Exam Head Exam: ATRAUMATIC, NORMAL INSPECTION, NORMOCEPHALIC - Eye Exam Eye Exam: Normal appearance - ENT Exam ENT Exam: Mucous Membranes Moist - Neck Exam Neck exam: Positive for: Normal Inspection - Respiratory Exam Respiratory Exam: Rales, Rhonchi, Wheezes, Respiratory Distress - Cardiovascular Exam Cardiovascular Exam: Tachycardia, +S1, +S2 - GI/Abdominal Exam GI & Abdominal Exam: Normal Bowel Sounds, Soft. absent: Distended, Guarding, Organomegaly, Rigid, Tenderness - Rectal Exam Rectal Exam: Deferred - Extremities Exam Extremities exam: Positive for: normal inspection Additional comments: Unable to move LLE>RLE - Back Exam Back exam: NORMAL INSPECTION - Neurological Exam Neurological exam: Alert Additional comments: Left sided weakness, RUE weakness, lethargic but arousable and answers questions - Psychiatric Exam Psychiatric exam: Normal Affect, Normal Mood - Skin Skin Exam: Dry, Intact, Normal Color, Warm Results - Vital Signs Recent Vital Signs: Last Vital Signs Temp 100.9 F H 05/09/17 08:11 Pulse 97 H 05/09/17 08:11 Resp 18 05/09/17 08:11 BP 168/70 H 05/09/17 08:11 Pulse Ox 95 05/09/17 08:11 - Labs Result Diagrams: 05/09/17 05:55 05/09/17 05:55 Labs: Laboratory Results - last 24 hr 05/09/17 05/09/17 05:55 05:55 WBC 17.4 H D RBC 3.90 L Hgb 13.0 Hct 39.0 MCV 100.0 H MCH 33.5 H MCHC 33.5 RDW 13.8 Plt Count 327 Sodium 136 Potassium 3.2 L Chloride 100 Carbon Dioxide 28 Anion Gap 11 BUN 8 L Creatinine 0.5 L Est GFR ( Amer) > 60 Est GFR (Non-Af Amer) > 60 Random Glucose 115 H Calcium 8.9 Assessment & Plan - Assessment and Plan (Free Text) Assessment: This is a 56yM with a hx of alcohol abuse, HTN, CBP s/p fall and found to have a Acute CVA with left sided weakness, dysarthria and dysphagia. Request for PEG tube placement. 1. Dysarthria with aspiration due to CVA 2. Acute CVA- Right Basal ganglia, narayanan radiata infarct 3. Macrocytic Anemia 4. ETOH abuse/dependence s/p DTs 5. Aspiration PNA 6. Hypokalemia Plan: -Pt will benefit from PEG tube placement once medically stable, discussed with pt and left message for pt's nephew who will help make decision about PEG tube, will discuss further with family and get consent -Continue treatment for aspiration PNA with worsening WBC, febrile, abx therapy per ID -Aspiration precautions, seizure precautions, NPO -Continue folate, VitB12, thiamine with hx of ETOH and MCV>100 -Acute CVA, neurology following, continue PTOT -Hx of ETOH abuse, LFTs wnl, initially AST>ALT likely from alcohol use, recommend Abdominal US to r/o cirrhosis -Monitor for DTs or seizure activity -Replete electrolytes, order PT/INR -Will continue to follow pt closely, once infection improves and discussed with family, will schedule PEG tube placement <Olga Tolbert MD - Last Filed: 05/09/17 18:07> Meds - Medications Medications: Current Medications Acetaminophen (Tylenol 325mg Tab) 650 mg PO Q6 PRN PRN Reason: Pain, Mild (1-3) Last Admin: 04/29/17 03:37 Dose: 650 mg Acetaminophen (Tylenol 650 Mg Supp) 650 mg IN Q6 PRN PRN Reason: Fever >100.4 F Last Admin: 05/09/17 12:45 Dose: 650 mg Albuterol/Ipratropium (Duoneb 3 Mg/0.5 Mg (3 Ml) Ud) 3 ml INH RQID [facility] Last Admin: 05/09/17 15:57 Dose: 3 ml Aspirin (Aspirin Chewable) 81 mg PO DAILY [facility] Last Admin: 05/09/17 10:07 Dose: Not Given Atorvastatin Calcium (Lipitor) 40 mg PO DAILY [facility] Last Admin: 05/09/17 10:06 Dose: Not Given Enalaprilat (Vasotec Iv) 1.25 mg IV Q6 PRN PRN Reason: Hypertension Last Admin: 05/09/17 10:50 Dose: 1.25 mg Enoxaparin Sodium (Lovenox) 40 mg SC DAILY [facility] PRN Reason: Protocol Last Admin: 05/09/17 10:07 Dose: 40 mg Folic Acid (Folic Acid) 1 mg PO DAILY [facility] Last Admin: 05/09/17 10:07 Dose: Not Given Guaifenesin (Robitussin) 100 mg PO Q6 PRN PRN Reason: Cough Vancomycin HCl 1 gm/ Sodium (Chloride) 250 mls @ 166.667 mls/hr IVPB Q12 [facility] Last Admin: 05/09/17 10:06 Dose: 166.667 mls/hr Piperacillin Sod/Tazobactam (Sod 4.5 gm/ Sodium Chloride) 100 mls @ 100 mls/hr IVPB Q8 [facility] Last Admin: 05/09/17 17:48 Dose: 100 mls/hr Ciprofloxacin (Cipro 400mg/200ml Dsw) 400 mg in 200 mls @ 200 mls/hr IVPB Q12 [facility] Last Admin: 05/09/17 16:07 Dose: 200 mls/hr Dexmedetomidine HCl 400 mcg/ (Sodium Chloride) 100 mls @ 3.62 mls/hr IV .Q24H ONE; 0.2 MCG/KG/HR PRN Reason: Protocol Stop: 05/10/17 14:14 Last Admin: 05/09/17 14:53 Dose: 0.2 mcg/kg/hr, 3.62 mls/hr Potassium Chloride/Dextrose/Sod Cl (Potassium Chl 40 Meq In D5-1/2ns) 1,000 mls @ 125 mls/hr IV .Q8H [facility] Stop: 05/10/17 14:31 Last Admin: 05/09/17 16:08 Dose: 125 mls/hr Multivitamins/Vitamin C (Multi-Delyn Liquid) 5 ml PO DAILY [facility] Last Admin: 05/09/17 10:06 Dose: Not Given Pantoprazole Sodium (Protonix Susp) 40 mg PO DAILY [facility] Quetiapine Fumarate (Seroquel) 25 mg PO HS [facility] Last Admin: 05/03/17 22:55 Dose: Not Given Thiamine HCl (Vitamin B1 Tab) 100 mg PO DAILY [facility] Last Admin: 05/09/17 10:05 Dose: Not Given Results - Vital Signs Recent Vital Signs: Last Vital Signs Temp 102.3 F H 05/09/17 12:35 Pulse 117 H 05/09/17 12:35 Resp 18 05/09/17 12:35 BP 184/96 H 05/09/17 12:35 Pulse Ox 94 L 05/09/17 12:35 - Labs Result Diagrams: 05/09/17 05:55 05/09/17 05:55 Labs: Laboratory Results - last 24 hr 05/09/17 05/09/17 05/09/17 05:55 05:55 13:05 WBC 17.4 H D RBC 3.90 L Hgb 13.0 Hct 39.0 MCV 100.0 H MCH 33.5 H MCHC 33.5 RDW 13.8 Plt Count 327 pCO2 39 pO2 58 L HCO3 28.2 H ABG pH 7.47 H ABG Total CO2 29.6 H ABG O2 Saturation 92.8 L ABG O2 Content 19.0 ABG Base Excess 4.5 H ABG Hemoglobin 15.1 ABG Carboxyhemoglobin 1.6 H POC ABG HHb (Measured) 7.0 H ABG Methemoglobin 1.8 ABG O2 Capacity 20.5 Carson Test Yes A-a O2 Difference 250.0 Hgb O2 Saturation 89.6 L Vent Mode Mechanical Rate FiO2 50.0 Tidal Volume PEEP Sodium 136 Potassium 3.2 L Chloride 100 Carbon Dioxide 28 Anion Gap 11 BUN 8 L Creatinine 0.5 L Est GFR ( Amer) > 60 Est GFR (Non-Af Amer) > 60 Random Glucose 115 H Calcium 8.9 05/09/17 13:30 WBC RBC Hgb Hct MCV MCH MCHC RDW Plt Count pCO2 34 L pO2 79 L HCO3 28.2 H ABG pH 7.51 H ABG Total CO2 28.1 H ABG O2 Saturation 98.0 ABG O2 Content 18.5 ABG Base Excess 4.3 H ABG Hemoglobin 13.8 ABG Carboxyhemoglobin 1.7 H POC ABG HHb (Measured) 1.9 ABG Methemoglobin 1.4 ABG O2 Capacity 18.9 Carson Test Yes A-a O2 Difference 449.0 Hgb O2 Saturation 94.9 L Vent Mode A/cprvc Mechanical Rate 12 FiO2 80.0 Tidal Volume 450 PEEP 5 Sodium Potassium Chloride Carbon Dioxide Anion Gap BUN Creatinine Est GFR ( Amer) Est GFR (Non-Af Amer) Random Glucose Calcium Attending/Attestation - Attestation I have personally seen and examined this patient.: Yes I have fully participated in the care of the patient.: Yes I have reviewed all pertinent clinical information: Yes Notes (Text): 05/09/17 17:59 Patient seen and examined with GI fellow on rounds. This is a 56 yr old M with a hx of alcohol abuse, HTN, CBP s/p fall and found to have a Acute CVA with left sided weakness, dysarthria and dysphagia. GI consulted for PEG tube placement. Patient seen at bedside in respiratory distress, being upgraded to MICU for airway protection and intubation. Currently with worsening clinical status and leukocytosis on antibiotics. Prudent to treat active respiratory infection and to rule out new onset hemorrhagic stroke, prior to invasive procedure. Will hold off on on endoscopic procedure till acute events have resolved. Replete electrolytes. Rest of plan as per neurology, MICU and respiratory. Please reconsult once acute issues have abated. Thank you for letting us participate in the care of your patient. Will have to hold plavix for 5 days prior to PEG placement.
[2017-05-09] MEDS: Potassium CL 10 MEQ/50 ML 50 ML IVPB SCH ×2 (09:57→09:58)
[2017-05-09] MEDS: Multiple Vitamins Oral Solution PO SCH (10:06)
[2017-05-09] MEDS: Enoxaparin 40 mg Syringe SC SCH (10:07)
[2017-05-09] MEDS: EnalaprilAT 1.25 mg/ml Inj IV PRN (10:50)
--- NOTE | 2017-05-09 11:03 | CP.PCM.PN ---
Subjective - Date & Time of Evaluation Date of Evaluation: 05/09/17 Time of Evaluation: 08:00 - Subjective Subjective: Patient seen and examined bedside.Lying in bed , responding to simple questions with yes and no. With left side hemiparesis, dysarthria, dysphagia , left side left facial droop. On venti mask with FIOI2 50 % saturating 95 % ,with large thick white / yellowish secretions Tmax 100.6 and WBC trending up to 17 K tachycardic HR 100 Bp 168/70 No acute issues overnight NPO on maintenance IVF Objective - Vital Signs/Intake and Output Vital Signs (last 24 hours): Temp Pulse Resp BP Pulse Ox 100.9 F H 97 H 18 168/70 H 95 05/09/17 08:11 05/09/17 08:11 05/09/17 08:11 05/09/17 10:50 05/09/17 08:11 - Medications Medications: Current Medications Acetaminophen (Tylenol 325mg Tab) 650 mg PO Q6 PRN PRN Reason: Pain, Mild (1-3) Last Admin: 04/29/17 03:37 Dose: 650 mg Albuterol/Ipratropium (Duoneb 3 Mg/0.5 Mg (3 Ml) Ud) 3 ml INH RQID [facility] Last Admin: 05/09/17 07:19 Dose: 3 ml Aspirin (Aspirin Chewable) 81 mg PO DAILY [facility] Last Admin: 05/09/17 10:07 Dose: Not Given Atorvastatin Calcium (Lipitor) 40 mg PO DAILY [facility] Last Admin: 05/09/17 10:06 Dose: Not Given Enalaprilat (Vasotec Iv) 1.25 mg IV Q6 PRN PRN Reason: Hypertension Last Admin: 05/09/17 10:50 Dose: 1.25 mg Enoxaparin Sodium (Lovenox) 40 mg SC DAILY [facility] PRN Reason: Protocol Last Admin: 05/09/17 10:07 Dose: 40 mg Folic Acid (Folic Acid) 1 mg PO DAILY [facility] Last Admin: 05/09/17 10:07 Dose: Not Given Vancomycin HCl 1 gm/ Sodium (Chloride) 250 mls @ 166.667 mls/hr IVPB Q12 [facility] Last Admin: 05/09/17 10:06 Dose: 166.667 mls/hr Piperacillin Sod/Tazobactam (Sod 4.5 gm/ Sodium Chloride) 100 mls @ 100 mls/hr IVPB Q8 [facility] Last Admin: 05/09/17 10:03 Dose: 100 mls/hr Ibuprofen (Motrin Tab) 600 mg PO Q6 PRN PRN Reason: Pain, moderate (4-7) Last Admin: 04/29/17 09:33 Dose: 600 mg Multivitamins/Vitamin C (Multi-Delyn Liquid) 5 ml PO DAILY [facility] Last Admin: 05/09/17 10:06 Dose: Not Given Quetiapine Fumarate (Seroquel) 25 mg PO HS [facility] Last Admin: 05/03/17 22:55 Dose: Not Given Thiamine HCl (Vitamin B1 Tab) 100 mg PO DAILY [facility] Last Admin: 05/09/17 10:05 Dose: Not Given - Labs Labs: 05/09/17 05:55 05/09/17 05:55 - Constitutional Appears: Other (lethargic with left side hemiparesis, dysarthria , dysphagia) - Head Exam Head Exam: NORMOCEPHALIC - Eye Exam Eye Exam: EOMI, PERRL - ENT Exam ENT Exam: Mucous Membranes Dry Additional comments: thick respiratory secretions dry oral mucosa and lower lips - Neck Exam Neck Exam: Normal Inspection - Respiratory Exam Respiratory Exam: Decreased Breath Sounds (left hemithorax). absent: Wheezes Additional comments: thick secretions, coughing spells - Cardiovascular Exam Cardiovascular Exam: REGULAR RHYTHM, RRR, +S1, +S2. absent: JVD - GI/Abdominal Exam GI & Abdominal Exam: Soft, Normal Bowel Sounds. absent: Distended, Guarding, Tenderness, Rebound - Rectal Exam Rectal Exam: Deferred - Extremities Exam Extremities Exam: Full ROM, Normal Capillary Refill, Normal Inspection. absent : Pedal Edema - Neurological Exam Additional comments: left facial droop left hemiparesis lethargic dysarthria dysphagia - Psychiatric Exam Psychiatric exam: Flat Affect - Skin Skin Exam: Dry, Normal Color, Warm Assessment and Plan - Assessment and Plan (Free Text) Assessment: 56 y/o homeless male with PMHx significant for HTN, anemia, and EtOH abuse presented to ER with multiple falls with minor head trauma. He stated that he had been feeling 'off balance' and falling more over the past several days. He denied EtOH associated with these falls. Denied any focal weakness, but felt like both his feet were numb (this is ongoing, not new) and also c/o back pain (also chronic); he also felt off balance more lately as well. CT head in ER showed Multiple bilateral lacune or infarcts and severe cortical atrophy. Patient admitted in telemetry for close monitoring. MRI head showed acute right MCA stroke Patient started on ASa, lovenox and statin. Neurology and PT consulted He developed DT-s and was started on gabapentin 300 mg PO TID , Seroqule and Ativan PRN Patient became more lethargic with dyarthria, dysphagia, left facial droop and left side weakness.Repeat MRI of the head showed Findings compatible with the known recent right basal ganglia infarct. No new areas of infarction seen. No MR evidence of associated hemorrhage. At present in telemetry still lethargic but awake, following simple commands with dysarthria, dysphagia, left hemiparesis . All medications that can potentially cause sedation were discontinued .He was noted to have worsening of his dysphagia and developed Aspiration Pmneumonai and currently on IV antibiotics GI consulted for Peg placement Family has applied for medicaid to facilitate his transfer to [facility]/ permanent placement 1. Aspiration Pneumonia with thick yellowish respiratory secretions unable to handle, requiring frequent suctioning Sputum cuiltures growing MRSA and Serratia Marcescen CXR showed left middle and lower lobe infiltrates WBC trending up to 17 K and Tmax 100.6 ContinuE vanco and Zosyn and add Cipro Iv today ID consult with Dr. Fritz keep head of the bed elevated frequent suctioning and aspiration precautions keep NPO since patient has severe dysphagia showed by barium swallow Continue D51/2 NS +20 KCl while NPO GI consulted for peg placement 2.Acute Ischemic stroke lethargic with dysarthria, dysphagia,left facial droop and left side hemiparesis ,follows simple commands and answers simple questions with yes and no MRI of the head 04/28 showed 1. Acute right MCA territory infarction involving the right narayanan radiata and basal ganglia. 2. Severe chronic microangiopathic changes and mild age-related global parenchymal volume loss. Repeat MRI 05/04 showed known recent basal ganglia infarct no acute changes Neurology consult appreciated Continue ASA, statin CTA neck showed no Blood clot , carotid doppler showed no stenosis Echo showed normal EF and wall motion continue tele monitoring Keep NPO for now since patient failed swallow eval keep head of the bed elevated . PT consulted . Continue gait training while in patient . Patient is full assist He will need [facility] placement for physical therapy 05/04/17 had long discussion with daughter, nephew in person and sister over the phone. Explained all findings, diagnosis and prognosis. Family started medicaid application and nephew is getting POA Will need peg placement 3.ETOH withdrawal/ Delirium tremens-- improved but now lethargic due to CVA patient was tachycardic, tremulous, confused with visual hallucinations on admission was initially Started on librium tappering dose , ativan PRN -- discontinued due to sedation discussed with neurology who recommended to start patient on gabapentin and Seroquel HS that were discontinued due to lethargy Continue thiamine, folic acid, MVI, Seizure precautions on AVasyst for safety 4.Gait instability with falls / full assist PT eval appreciated Patient is full assist,with left side hemiparesis Continue PT while in patient. will need [facility] family to help with medicaid application 5.EtOH abuse chronic on Thiamine, folic acid, MVI 6.HTN allow permissive hypertension started enalapril IV PRN for SBP > 150 7.Thrombocytopenia- improved most likely chronic secondary to ETOH abuse 8.Hypokalemia replace and monitor Kcl runs 20 MEQ IV continue KCl in IVF daily 9.DVT PPx SQ Lovenox
[2017-05-09] MEDS ORDERED: Albuterol-Ipratrop 3 mg / 0.5 (3 ml) UD INH STA (12:52)
[2017-05-09 13:10] LABS: ABG ALLEN TEST YES; ARTERIAL BLOOD GAS HCO3 28.2 mmol/L (21-28); ARTERIAL BLOOD GAS O2 CAPACITY 20.5 mL/dL (16-24); ARTERIAL BLOOD GAS PH 7.47 (7.35-7.45); ARTERIAL BLOOD GAS PO2 58 mm/Hg (80-100); ARTERIAL BLOOD HGB O2 SAT 89.6 % (95.0-98.0); CARBOXYHEMOGLOBIN 1.6 % (0.5-1.5); METHEMOGLOBIN 1.8 % (0.0-3.0)
[2017-05-09] MEDS ORDERED: Midazolam 2 MG/2 ML VIAL IV ONE (13:14)
[2017-05-09] MEDS ORDERED: Propofol 10 mg/ml 1,000 MG/100 ML VIAL ONE (13:34)
--- NOTE | 2017-05-09 13:42 | CP.PCM.PN ---
Subjective - Date & Time of Evaluation Date of Evaluation: 05/09/17 Time of Evaluation: 13:37 - Subjective Subjective: Mr. Norton was seen and examined today in the ICU after being transferred here due to respiratory distress requiring intubation. The patient has been having progressive difficulty with swallowing and maintaining his airway. He has been NPO for the last 5 days. Today, his breathing became worse with hyperventilation in the 45-50 bpm range. Neurologically, there have been no significant changes. Objective - Vital Signs/Intake and Output Vital Signs (last 24 hours): Temp Pulse Resp BP Pulse Ox 102.3 F H 117 H 18 184/96 H 94 L 05/09/17 12:35 05/09/17 12:35 05/09/17 12:35 05/09/17 12:35 05/09/17 12:35 - Medications Medications: Current Medications Acetaminophen (Tylenol 325mg Tab) 650 mg PO Q6 PRN PRN Reason: Pain, Mild (1-3) Last Admin: 04/29/17 03:37 Dose: 650 mg Acetaminophen (Tylenol 650 Mg Supp) 650 mg DE Q6 PRN PRN Reason: Fever >100.4 F Last Admin: 05/09/17 12:45 Dose: 650 mg Albuterol/Ipratropium (Duoneb 3 Mg/0.5 Mg (3 Ml) Ud) 3 ml INH RQID [facility] Last Admin: 05/09/17 07:19 Dose: 3 ml Aspirin (Aspirin Chewable) 81 mg PO DAILY [facility] Last Admin: 05/09/17 10:07 Dose: Not Given Atorvastatin Calcium (Lipitor) 40 mg PO DAILY [facility] Last Admin: 05/09/17 10:06 Dose: Not Given Enalaprilat (Vasotec Iv) 1.25 mg IV Q6 PRN PRN Reason: Hypertension Last Admin: 05/09/17 10:50 Dose: 1.25 mg Enoxaparin Sodium (Lovenox) 40 mg SC DAILY [facility] PRN Reason: Protocol Last Admin: 05/09/17 10:07 Dose: 40 mg Folic Acid (Folic Acid) 1 mg PO DAILY [facility] Last Admin: 05/09/17 10:07 Dose: Not Given Vancomycin HCl 1 gm/ Sodium (Chloride) 250 mls @ 166.667 mls/hr IVPB Q12 [facility] Last Admin: 05/09/17 10:06 Dose: 166.667 mls/hr Piperacillin Sod/Tazobactam (Sod 4.5 gm/ Sodium Chloride) 100 mls @ 100 mls/hr IVPB Q8 [facility] Last Admin: 05/09/17 10:03 Dose: 100 mls/hr Ciprofloxacin (Cipro 400mg/200ml Dsw) 400 mg in 200 mls @ 200 mls/hr IVPB Q12 [facility] Ibuprofen (Motrin Tab) 600 mg PO Q6 PRN PRN Reason: Pain, moderate (4-7) Last Admin: 04/29/17 09:33 Dose: 600 mg Multivitamins/Vitamin C (Multi-Delyn Liquid) 5 ml PO DAILY [facility] Last Admin: 05/09/17 10:06 Dose: Not Given Quetiapine Fumarate (Seroquel) 25 mg PO HS [facility] Last Admin: 05/03/17 22:55 Dose: Not Given Thiamine HCl (Vitamin B1 Tab) 100 mg PO DAILY [facility] Last Admin: 05/09/17 10:05 Dose: Not Given - Labs Labs: 05/09/17 05:55 05/09/17 05:55 - Neurological Exam Neurological Exam: Altered Additional comments: Hyperventilating, not following any commands, not responding to painful stimuli , reflexes are brisk on the left side with upgoing plantar response. Pupils are sluggishly reactive. Does not move his eyes to command, eyes have some roving movements at times. Assessment and Plan (1) Acute ischemic stroke Assessment & Plan: Patient seems to be deteriorating clinically and is hypertensive, hyperventilating, but not bradycardic. Will repeat CT head to rule out hemorrhagic conversion. If no bleed, continue aspirin and plavix for secondary stroke prevention. Manage underlying pneumonia, and continue ICU management. I recommend normal BP range, avoid hyperthermia, avoid hyperglycemia and maintain sodium levels in normal range. Keep head of bed elevated above 30 degrees to avoid aspiration pneumonia. Status: Acute
[2017-05-09] MEDS ORDERED: Dexmedetomidine Hydrochloride 400 MCG in Sodium Chloride 0.9% 96 ML IV ONE ×2 (13:53→14:15)
[2017-05-09 14:26] LABS: ABG ALLEN TEST YES; ABG MECHANICAL RATE 12; ARTERIAL BLOOD GAS HCO3 28.2 mmol/L (21-28); ARTERIAL BLOOD GAS MODE A/CPRVC; ARTERIAL BLOOD GAS O2 CAPACITY 18.9 mL/dL (16-24); ARTERIAL BLOOD GAS O2 CONTENT 18.5 ML/dL (15-23); ARTERIAL BLOOD GAS PH 7.51 (7.35-7.45); ARTERIAL BLOOD GAS PO2 79 mm/Hg (80-100); ARTERIAL BLOOD HGB O2 SAT 94.9 % (95.0-98.0); ATERIAL BLOOD GAS PEEP 5; CARBOXYHEMOGLOBIN 1.7 % (0.5-1.5); HHB 1.9 % (0.0-5.0); METHEMOGLOBIN 1.4 % (0.0-3.0)
--- NOTE | 2017-05-09 15:17 | PCM.PROC ---
Procedures Attestation:: I certify that I have explained the specified Operation(s) or Procedure(s), risks, benefits and reasonable alternatives to the Patient and/or other person responsible. The opportunity was given to ask questions and all questions answered - Intubation Time Out Performed: Yes Sedative: Versed, Fentanyl Mg Given: 4mg & 100mg Laryngoscope: Glidescope ET Tube Size: 8.0 ET Tube Uncuffed: No (cuffed) ET Tube Secured at Depth: 25 ET Tube Secured Locarion: Lips ET Tube Placement Confirmation: Visualized Passing Through Cords, Breath Sounds Equal Bilaterally, No Breath Sounds Over Epigastrum, Confirmation w/Capnometry Patient Tolerated Procedure: Well, No Complications
[2017-05-09] MEDS ORDERED: guaiFENesin 100 mg/5 ml Syrup UD PO PRN (15:26)
--- NOTE | 2017-05-09 15:43 | CP.PCM.CON ---
History of Present Illness - History of Present Illness History of Present Illness: 56yo M. PMHx HTN, anemia, ETOH abuse, homeless. p/w ataxia and falls (04/26). Found to have multiple bilateral lacunae/infarcts and severe cortical atrophy. (05/04) MRI - right basal ganglia infarct. Patient's mental status has slowly declined, requiring intubation (05/09). Review of Systems - Review of Systems Systems not reviewed;Unavailable: Altered Mental Status, Intubated Past Patient History - Past Medical History & Family History Past Medical History?: Yes - Past Social History Alcohol: Occasional Drugs: Denies - CARDIAC Hx Hypertension: Yes - PULMONARY Hx Tuberculosis: No - NEUROLOGICAL HX Cerebrovascular Accident: No - HEMATOLOGICAL/ONCOLOGICAL Hx Anemia: Yes Hx Human Immunodeficiency Virus (HIV): No - MUSCULOSKELETAL/RHEUMATOLOGICAL Hx Arthritis: Yes - GASTROINTESTINAL Hx Gastrointestinal Disorders: Yes Hx Colitis: Yes - PSYCHIATRIC Hx Substance Use: No - SURGICAL HISTORY Hx Surgeries: Yes Other/Comment: hemmroids - ANESTHESIA Hx Anesthesia: Yes Hx Anesthesia Reactions: No Hx Malignant Hyperthermia: No Meds Allergies/Adverse Reactions: Allergies Allergy/AdvReac Type Severity Reaction Status Date / Time No Known Allergies Allergy Verified 04/26/17 23:00 - Medications Medications: Current Medications Acetaminophen (Tylenol 325mg Tab) 650 mg PO Q6 PRN PRN Reason: Pain, Mild (1-3) Last Admin: 04/29/17 03:37 Dose: 650 mg Acetaminophen (Tylenol 650 Mg Supp) 650 mg [place] Q6 PRN PRN Reason: Fever >100.4 F Last Admin: 05/09/17 12:45 Dose: 650 mg Albuterol/Ipratropium (Duoneb 3 Mg/0.5 Mg (3 Ml) Ud) 3 ml INH RQID [facility] Last Admin: 05/09/17 12:00 Dose: 3 ml Aspirin (Aspirin Chewable) 81 mg PO DAILY [facility] Last Admin: 05/09/17 10:07 Dose: Not Given Atorvastatin Calcium (Lipitor) 40 mg PO DAILY [facility] Last Admin: 05/09/17 10:06 Dose: Not Given Enalaprilat (Vasotec Iv) 1.25 mg IV Q6 PRN PRN Reason: Hypertension Last Admin: 05/09/17 10:50 Dose: 1.25 mg Enoxaparin Sodium (Lovenox) 40 mg SC DAILY [facility] PRN Reason: Protocol Last Admin: 05/09/17 10:07 Dose: 40 mg Folic Acid (Folic Acid) 1 mg PO DAILY [facility] Last Admin: 05/09/17 10:07 Dose: Not Given Guaifenesin (Robitussin) 100 mg PO Q6 PRN PRN Reason: Cough Vancomycin HCl 1 gm/ Sodium (Chloride) 250 mls @ 166.667 mls/hr IVPB Q12 [facility] Last Admin: 05/09/17 10:06 Dose: 166.667 mls/hr Piperacillin Sod/Tazobactam (Sod 4.5 gm/ Sodium Chloride) 100 mls @ 100 mls/hr IVPB Q8 [facility] Last Admin: 05/09/17 10:03 Dose: 100 mls/hr Ciprofloxacin (Cipro 400mg/200ml Dsw) 400 mg in 200 mls @ 200 mls/hr IVPB Q12 [facility] Dexmedetomidine HCl 400 mcg/ (Sodium Chloride) 100 mls @ 3.62 mls/hr IV .Q24H ONE; 0.2 MCG/KG/HR PRN Reason: Protocol Stop: 05/10/17 14:14 Last Admin: 05/09/17 14:53 Dose: 0.2 mcg/kg/hr, 3.62 mls/hr Potassium Chloride/Dextrose/Sod Cl (Potassium Chl 40 Meq In D5-1/2ns) 1,000 mls @ 125 mls/hr IV .Q8H [facility] Stop: 05/10/17 14:31 Multivitamins/Vitamin C (Multi-Delyn Liquid) 5 ml PO DAILY [facility] Last Admin: 05/09/17 10:06 Dose: Not Given Quetiapine Fumarate (Seroquel) 25 mg PO HS [facility] Last Admin: 05/03/17 22:55 Dose: Not Given Thiamine HCl (Vitamin B1 Tab) 100 mg PO DAILY [facility] Last Admin: 05/09/17 10:05 Dose: Not Given Physical Exam - Head Exam Head Exam: ATRAUMATIC, NORMAL INSPECTION, NORMOCEPHALIC - Eye Exam Additional comments: downward gaze deviation - ENT Exam ENT Exam: Mucous Membranes Dry - Neck Exam Neck exam: Positive for: Full Rom - Respiratory Exam Respiratory Exam: Accessory Muscle Use, Decreased Breath Sounds - Cardiovascular Exam Cardiovascular Exam: REGULAR RHYTHM - GI/Abdominal Exam GI & Abdominal Exam: Normal Bowel Sounds. absent: Distended - Neurological Exam Neurological exam: Alert, Altered Results - Vital Signs Recent Vital Signs: Last Vital Signs Temp 102.3 F H 05/09/17 12:35 Pulse 117 H 05/09/17 12:35 Resp 18 05/09/17 12:35 BP 184/96 H 05/09/17 12:35 Pulse Ox 94 L 05/09/17 12:35 - Labs Result Diagrams: 05/09/17 05:55 05/09/17 05:55 Labs: Laboratory Results - last 24 hr 05/09/17 05/09/17 05/09/17 05:55 05:55 13:05 WBC 17.4 H D RBC 3.90 L Hgb 13.0 Hct 39.0 MCV 100.0 H MCH 33.5 H MCHC 33.5 RDW 13.8 Plt Count 327 pCO2 39 pO2 58 L HCO3 28.2 H ABG pH 7.47 H ABG Total CO2 29.6 H ABG O2 Saturation 92.8 L ABG O2 Content 19.0 ABG Base Excess 4.5 H ABG Hemoglobin 15.1 ABG Carboxyhemoglobin 1.6 H POC ABG HHb (Measured) 7.0 H ABG Methemoglobin 1.8 ABG O2 Capacity 20.5 Carson Test Yes A-a O2 Difference 250.0 Hgb O2 Saturation 89.6 L Vent Mode Mechanical Rate FiO2 50.0 Tidal Volume PEEP Sodium 136 Potassium 3.2 L Chloride 100 Carbon Dioxide 28 Anion Gap 11 BUN 8 L Creatinine 0.5 L Est GFR ( Amer) > 60 Est GFR (Non-Af Amer) > 60 Random Glucose 115 H Calcium 8.9 05/09/17 13:30 WBC RBC Hgb Hct MCV MCH MCHC RDW Plt Count pCO2 34 L pO2 79 L HCO3 28.2 H ABG pH 7.51 H ABG Total CO2 28.1 H ABG O2 Saturation 98.0 ABG O2 Content 18.5 ABG Base Excess 4.3 H ABG Hemoglobin 13.8 ABG Carboxyhemoglobin 1.7 H POC ABG HHb (Measured) 1.9 ABG Methemoglobin 1.4 ABG O2 Capacity 18.9 Carson Test Yes A-a O2 Difference 449.0 Hgb O2 Saturation 94.9 L Vent Mode A/cprvc Mechanical Rate 12 FiO2 80.0 Tidal Volume 450 PEEP 5 Sodium Potassium Chloride Carbon Dioxide Anion Gap BUN Creatinine Est GFR ( Amer) Est GFR (Non-Af Amer) Random Glucose Calcium Assessment & Plan (1) CVA (cerebral vascular accident) Assessment and Plan: 56yo M. PMHx HTN, anemia, ETOH abuse, homeless. p/w ataxia and falls (04/26). Found to have multiple bilateral lacunae/infarcts and severe cortical atrophy. (05/04) MRI - right basal ganglia infarct. Patient's mental status has slowly declined, requiring intubation (05/09). Neuro: Obtunded with abnormal breathing pattern. Beginning repeat head CT to assess for any changes. Patient will also have EEG to assess for status epilepticus. We'll sedate with dexmedetomidine. Lipitor 40 mg by mouth daily. Pulm: Acute respiratory failure with hypoxia, intubated now on vent. Chest x- ray is indicative of aspiration pneumonia with consolidation in the left lower lobe, continue IV antibiotics, DuoNeb's, mucolytic's. CV: Hemodynamically stable. Hypertension controlled with enalapril 1.25 mg IV every 6h. Hem: No acute issues Renal: No acute issues, urine output within normal limits, we will monitor. Endo: No acute issues GI: Nothing by mouth, will start tube feeds. ID: Sepsis from aspiration pneumonia, continue ciprofloxacin, vancomycin, Zosyn. DVT proph - Lovenox GI proph - Protonix lew for strict I/O's during acute illness Code status - will code Critical Care Time spent Multi-disciplinary rounds were performed with house staff, nursing, speech therapy, respiratory therapy, pharmacy and nutrition with integrated input from the primary team/attending and other consulting services. The documented time is cumulative and includes review of patient data/exams/labs/chart review and examination of the patient on rounds and throughout the day; time is exclusive of any procedures or teaching time. Status: Acute
[2017-05-09] MEDS: Ciprofloxacin 400mg/200ml D5W 400 MG/200 ML BAG IVPB SCH ×2 (16:07→21:08)
[2017-05-09] MEDS: Potassium Chl 40 mEq in D5-1/2 1,000 ML IV SCH (16:08)
--- NOTE | 2017-05-09 16:26 | CT ---
PROCEDURE: CT HEAD WITHOUT CONTRAST. HISTORY: rule out hemorrhagic conversion COMPARISON: Comparison is made to the previous study dated 04/30/2017 TECHNIQUE: Axial computed tomography images were obtained through the head/brain without intravenous contrast. Radiation dose: Total exam DLP = 1101.17 mGy-cm. This CT exam was performed using one or more of the following dose reduction techniques: Automated exposure control, adjustment of the mA and/or kV according to patient size, and/or use of iterative reconstruction technique. FINDINGS: HEMORRHAGE: No evidence of acute intracranial hemorrhage. BRAIN: Again seen is focal hypodensity at the right basal ganglia/narayanan radiata consistent with subacute infarction. Moderate to large white matter hypodensities are again seen suggestive of chronic microvascular ischemic disease. Moderate atrophy is also noted. VENTRICLES: Unremarkable. No hydrocephalus. CALVARIUM: Unremarkable. PARANASAL SINUSES: Unremarkable as visualized. No significant inflammatory changes. MASTOID AIR CELLS: Partial opacification of the left mastoid is noted may represent mastoiditis. OTHER FINDINGS: Fluid density seen at the nasopharynx and posterior aspect of the nasal cavity. IMPRESSION: No evidence of acute or subacute intracranial hemorrhage. No significant interval change since the previous exam noted. Fluid density at the nasopharynx and posterior nasal cavity. Opacification of the left mastoid suggestive of mastoiditis.
--- NOTE | 2017-05-09 17:05 | RAD ---
HISTORY: pneumonia COMPARISON: Prior frontal chest 05/04/2017. FINDINGS: LUNGS: There is near complete opacification of the left lung with volume loss compatible with atelectasis most likely. Interval increase in pleural effusion and infiltrate is not favored but is not excluded. Clinically correlate further. The right lung appears somewhat hyper intra appear expanded. Risser motion artifacts obscure evaluation the right chest. Cardiac silhouette is completely obscured at the left side. No pneumothorax. PLEURA: As above. CARDIOVASCULAR: As above OSSEOUS STRUCTURES: No significant abnormalities. VISUALIZED UPPER ABDOMEN: Normal. OTHER FINDINGS: None. IMPRESSION: Prominent left sided atelectasis opacifies nearly the entire left hemithorax. Consider possible mucous plugging or other process. Interval worsening pneumonia or pleural effusion is not excluded nevertheless. Compensatory hyperexpansion of the right lung is appreciated. Findings discussed with Nurse Caro with right down and read back verification 05/01/2017 at 16:50 p.m.
--- NOTE | 2017-05-09 17:30 | RAD ---
HISTORY: s/p intubation and ogt COMPARISON: Portable chest 05/09/2017 13:05 p.m. FINDINGS: LUNGS: Patient is now intubated with the endotracheal tube terminating 4 cm of the above the gavino. Hyper inflation of the right lung is again appreciated with improving aeration at the mid superior left lung zone, a function of diminished atelectasis. Residual atelectasis or infiltrate remains at the majority of the mid to inferior left lung zone with underlying pleural effusion not excluded. None is seen the right. No pneumothorax bilaterally. Cardiac silhouette remains obscures well as left pulmonary vascular pattern. A nasogastric tube is in place with the tip terminating at the region of the the stomach. PLEURA: As above. CARDIOVASCULAR: As above. OSSEOUS STRUCTURES: No significant abnormalities. VISUALIZED UPPER ABDOMEN: Normal. OTHER FINDINGS: None. IMPRESSION: Improving atelectasis with the left apex and mid lung zone partially aerated but the left base and lower midportion remains relatively probably opacified. Hyper inflation of the right lung is again appreciated with patient now intubated. A nasogastric tube is also identified placed.
[2017-05-09] MEDS ORDERED: Albumin Human 5% (12.5 gm/250 ml) IV STA (17:53)
[2017-05-10] MEDS: Piperacillin/Tazobact 4.5 GM in Sodium Chloride 0.9% 100 ML IVPB SCH ×2 (00:27→10:00)
[2017-05-10 04:41] LABS: ABG ALLEN TEST YES; ABG MECHANICAL RATE 12; ARTERIAL BLOOD GAS HCO3 28.6 mmol/L (21-28); ARTERIAL BLOOD GAS MODE A/C; ARTERIAL BLOOD GAS O2 CAPACITY 17.7 mL/dL (16-24); ARTERIAL BLOOD GAS O2 CONTENT 17.5 ML/dL (15-23); ARTERIAL BLOOD GAS PH 7.49 (7.35-7.45); ARTERIAL BLOOD GAS PO2 221 mm/Hg (80-100); ARTERIAL BLOOD HGB O2 SAT 96.2 % (95.0-98.0); ATERIAL BLOOD GAS PEEP 5; HHB 0.9 % (0.0-5.0); METHEMOGLOBIN 1.9 % (0.0-3.0)
[2017-05-10 05:19] LABS: BASO # 0.1 K/uL (0.0-0.2); BASO % 0.5 % (0.0-2.0); EOS # 0.1 K/uL (0.0-0.7); EOS % 0.2 % (0.0-4.0); HEMATOCRIT 35.3 % (35.0-51.0); LYMPH # 0.8 K/uL (1.0-4.3); LYMPH % 3.4 % (20.0-40.0); MEAN CELL VOLUME 101.4 fl (80.0-94.0); MEAN CORPUSCULAR HEMOGLOBIN 34.3 pg (27.0-31.0); MEAN CORPUSCULAR HGB CONC 33.8 g/dL (33.0-37.0); MEAN PLATELET VOLUME 8.1 fl (7.2-11.7); MONO # 1.4 K/uL (0.0-0.8); MONO % 5.9 % (0.0-10.0); NEUT # 21.4 K/uL (1.8-7.0); PLATELET COUNT 278 K/uL (130-400); RED CELL DISTRIBUTION WIDTH 14.4 % (11.5-14.5); WHITE BLOOD COUNT 23.7 K/uL (4.8-10.8)
[2017-05-10 05:27] LABS: BLOOD UREA NITROGEN 14 mg/dl (9-20); CALCIUM 8.8 mg/dL (8.4-10.2); CARBON DIOXIDE 24 mmol/L (22-30); CHLORIDE 104 mmol/L (98-107); GFR AFRICAN-AMERICAN > 60; GLUCOSE,RANDOM 150 mg/dL (75-110); POTASSIUM 3.6 MMOL/L (3.6-5.0); SODIUM 137 mmol/l (132-148)
[2017-05-10] MEDS: Potassium Chl 40 mEq in D5-1/2 1,000 ML IV SCH ×3 (05:56→20:38)
[2017-05-10 07:24] LABS: NEUTROPHIL 87 % (42-75); TOTAL CELLS COUNTED 100
[2017-05-10] MEDS: Albuterol-Ipratrop 3 mg / 0.5 (3 ml) UD INH SCH ×4 (08:25→19:08)
[2017-05-10] MEDS: Ciprofloxacin 400mg/200ml D5W 400 MG/200 ML BAG IVPB SCH (08:38)
[2017-05-10] MEDS: Pantoprazole 40 mg Susp UD PO SCH (08:40)
[2017-05-10] MEDS: Multiple Vitamins Oral Solution PO SCH (08:40)
[2017-05-10] MEDS: Enoxaparin 40 mg Syringe SC SCH (08:40)
--- NOTE | 2017-05-10 10:40 | RAD ---
PROCEDURE: CHEST RADIOGRAPH, 1 VIEW HISTORY: pneumonia COMPARISON: 05/09/2017 FINDINGS: LUNGS: Extensive opacity in left riley thorax as on prior examination. There is some left-sided volume loss with shift of heart and mediastinum towards the left. However, this is confound by a oblique positioning of the patient. PLEURA: Blunting of left costophrenic angle indicates probable small left pleural effusion. No pneumothorax. CARDIOVASCULAR: ET tube and NG tube unchanged. OSSEOUS STRUCTURES: No significant abnormalities. VISUALIZED UPPER ABDOMEN: Normal. OTHER FINDINGS: None. IMPRESSION: Extensive left-sided opacity with some volume loss periods small left pleural effusion. ET tube and NG tube unchanged.
--- NOTE | 2017-05-10 11:49 | CP.PCM.PN ---
Subjective - Date & Time of Evaluation Date of Evaluation: 05/10/17 Time of Evaluation: 10:00 - Subjective Subjective: Pt in ICU Febrile to 101.3 Intubated on Mech Vent - PRVC/AC Sedated Pt opened eyes to tactile stimuli noticed that he slightly moved RUE and RLE Objective - Vital Signs/Intake and Output Vital Signs (last 24 hours): Temp Pulse Resp BP Pulse Ox 98.7 F 68 22 126/70 100 05/10/17 08:00 05/10/17 09:00 05/10/17 09:00 05/10/17 09:00 05/10/17 09:00 Intake and Output: 05/10/17 05/10/17 06:59 18:59 Intake Total 1825 257 Balance 1825 257 - Medications Medications: Current Medications Acetaminophen (Tylenol 325mg Tab) 650 mg PO Q6 PRN PRN Reason: Pain, Mild (1-3) Last Admin: 04/29/17 03:37 Dose: 650 mg Acetaminophen (Tylenol 650 Mg Supp) 650 mg [place] Q6 PRN PRN Reason: Fever >100.4 F Last Admin: 05/10/17 00:27 Dose: 650 mg Albuterol/Ipratropium (Duoneb 3 Mg/0.5 Mg (3 Ml) Ud) 3 ml INH RQID [facility] Last Admin: 05/10/17 08:25 Dose: 3 ml Aspirin (Aspirin Chewable) 81 mg PO DAILY [facility] Last Admin: 05/10/17 08:38 Dose: 81 mg Atorvastatin Calcium (Lipitor) 40 mg PO DAILY [facility] Last Admin: 05/10/17 08:40 Dose: 40 mg Enoxaparin Sodium (Lovenox) 40 mg SC DAILY [facility] PRN Reason: Protocol Last Admin: 05/10/17 08:40 Dose: 40 mg Folic Acid (Folic Acid) 1 mg PO DAILY [facility] Last Admin: 05/10/17 08:40 Dose: 1 mg Guaifenesin (Robitussin) 100 mg PO Q6 PRN PRN Reason: Cough Vancomycin HCl 1 gm/ Sodium (Chloride) 250 mls @ 166.667 mls/hr IVPB Q12 [facility] Last Admin: 05/09/17 21:10 Dose: 166.667 mls/hr Piperacillin Sod/Tazobactam (Sod 4.5 gm/ Sodium Chloride) 100 mls @ 100 mls/hr IVPB Q8 [facility] Last Admin: 05/10/17 10:00 Dose: 100 mls/hr Ciprofloxacin (Cipro 400mg/200ml Dsw) 400 mg in 200 mls @ 200 mls/hr IVPB Q12 [facility] Last Admin: 05/10/17 08:38 Dose: 200 mls/hr Dexmedetomidine HCl 400 mcg/ (Sodium Chloride) 100 mls @ 3.62 mls/hr IV .Q24H [facility]; 0.2 MCG/KG/HR PRN Reason: Protocol Stop: 05/10/17 14:14 Last Admin: 05/09/17 14:53 Dose: 0.2 mcg/kg/hr, 3.62 mls/hr Potassium Chloride/Dextrose/Sod Cl (Potassium Chl 40 Meq In D5-1/2ns) 1,000 mls @ 125 mls/hr IV .Q8H [facility] Stop: 05/10/17 14:31 Last Admin: 05/10/17 05:56 Dose: 125 mls/hr Multivitamins/Vitamin C (Multi-Delyn Liquid) 5 ml PO DAILY [facility] Last Admin: 05/10/17 08:40 Dose: 5 ml Pantoprazole Sodium (Protonix Susp) 40 mg PO DAILY [facility] Last Admin: 05/10/17 08:40 Dose: 40 mg Quetiapine Fumarate (Seroquel) 25 mg PO HS [facility] Last Admin: 05/03/17 22:55 Dose: Not Given Thiamine HCl (Vitamin B1 Tab) 100 mg PO DAILY [facility] Last Admin: 05/10/17 08:41 Dose: 100 mg - Labs Labs: 05/10/17 04:20 05/10/17 04:20 PT 16.4 Seconds (9.8-13.1) H 05/10/17 04:20 INR 1.6 (0.9-1.2) H 05/10/17 04:20 - Constitutional Appears: Older Than Stated Age, Chronically Ill, Other (Intubated) - Head Exam Head Exam: NORMOCEPHALIC - Eye Exam Eye Exam: Normal appearance - ENT Exam ENT Exam: Mucous Membranes Dry, Normal External Ear Exam - Neck Exam Neck Exam: absent: Meningismus - Respiratory Exam Respiratory Exam: Rales, Rhonchi Additional comments: Pt is intubated on [facility] Vent - Cardiovascular Exam Cardiovascular Exam: REGULAR RHYTHM, +S1, +S2 - GI/Abdominal Exam GI & Abdominal Exam: Soft, Normal Bowel Sounds. absent: Tenderness - Extremities Exam Extremities Exam: Normal Capillary Refill. absent: Pedal Edema - Neurological Exam Neuro motor strength exam: Left Upper Extremity: 0, Left Lower Extremity: 0 Additional comments: Intubated, Sedated opens eyes to tactile stimuli, follows simple command - Psychiatric Exam Psychiatric exam: Flat Affect - Skin Skin Exam: Dry, Normal Color, Warm Assessment and Plan - Assessment and Plan (Free Text) Assessment: 56 y/o homeless male with PMHx significant for HTN, anemia, and EtOH abuse presented to ER with multiple falls with minor head trauma. He stated that he had been feeling 'off balance' and falling more over the past several days. He denied EtOH associated with these falls. Denied any focal weakness, but felt like both his feet were numb (this is ongoing, not new) and also c/o back pain (also chronic); he also felt off balance more lately as well. CT head in ER showed Multiple bilateral lacunar infarcts and severe cortical atrophy. Patient admitted in telemetry for close monitoring. MRI head showed acute right MCA stroke Patient started on ASa, lovenox and statin. Neurology and PT consulted He developed DT-s and was started on gabapentin 300 mg PO TID , Seroquel and Ativan PRN Patient became more lethargic with dyarthria, dysphagia, left facial droop and left side weakness. Repeat MRI of the head showed Findings compatible with the known recent right basal ganglia infarct. No new areas of infarction seen. No MR evidence of associated hemorrhage. Developed respiratory failure on 05/09 likely due to Aspiration PNA, he was intubated and transferred to ICU. 1. Acute Respiratory failure with Hypoxia sec to Aspiration Pneumonia Pt is intubated PRVC/AC 60% FiO2 with thick yellowish respiratory secretions unable to handle, requiring frequent suctioning Sputum cultures growing MRSA and Serratia Marcescen CXR showed left middle and lower lobe infiltrates WBC trending up to 23K , febrile ID consult with Dr. Fritz - rec IV abx change to Meropenem and to cont IV Vanco keep head of the bed elevated frequent suctioning and aspiration precautions keep NPO since patient has severe dysphagia showed by Modified Barium swallow Started Tube feeding per [facility] GI consulted for peg placement Pulmonary consult- Dr Garrison 2. Acute Ischemic stroke lethargic with dysarthria, dysphagia,left facial droop and left side hemiparesis ,follows simple commands MRI of the head 04/28 showed 1. Acute right MCA territory infarction involving the right narayanan radiata and basal ganglia. 2. Severe chronic microangiopathic changes and mild age-related global parenchymal volume loss. Repeat MRI 05/04 showed known recent basal ganglia infarct no acute changes Neurology consult appreciated Continue ASA, statin CTA neck showed no Blood clot , carotid doppler showed no stenosis Echo showed normal EF and wall motion continue tele monitoring Keep NPO for now since patient failed swallow eval keep head of the bed elevated . PT consulted . He will need YEHUDA placement for physical therapy Will need peg placement 3.ETOH withdrawal/ Delirium tremens-- improved but now lethargic due to CVA patient was tachycardic, tremulous, confused with visual hallucinations on admission was initially Started on librium tapering dose , ativan PRN -- discontinued due to sedation discussed with neurology who recommended to start patient on gabapentin and Seroquel HS that were discontinued due to lethargy Continue thiamine, folic acid, MVI, Seizure precautions 4. HTN allow permissive hypertension started enalapril IV PRN for SBP > 150 5.Thrombocytopenia- improved most likely chronic secondary to ETOH abuse 6.Hypokalemia replace and monitor Kcl runs 20 MEQ IV continue KCl in IVF daily DVT PPx SQ Lovenox
--- NOTE | 2017-05-10 12:59 | CP.PCM.PN ---
Subjective - Date & Time of Evaluation Date of Evaluation: 05/10/17 Time of Evaluation: 12:56 - Subjective Subjective: Mr. Norton was seen and examined today at bedside in the ICU. He continues to be intubated, but is significantly more calm and is following command appropriately in all extremities despite weakness on the left side. Objective - Vital Signs/Intake and Output Vital Signs (last 24 hours): Temp Pulse Resp BP Pulse Ox 98.7 F 89 30 H 140/73 99 05/10/17 08:00 05/10/17 12:00 05/10/17 12:00 05/10/17 12:00 05/10/17 12:00 Intake and Output: 05/10/17 05/10/17 06:59 18:59 Intake Total 1825 757 Balance 1825 757 - Medications Medications: Current Medications Acetaminophen (Tylenol 325mg Tab) 650 mg PO Q6 PRN PRN Reason: Pain, Mild (1-3) Last Admin: 04/29/17 03:37 Dose: 650 mg Acetaminophen (Tylenol 650 Mg Supp) 650 mg [place] Q6 PRN PRN Reason: Fever >100.4 F Last Admin: 05/10/17 00:27 Dose: 650 mg Albuterol/Ipratropium (Duoneb 3 Mg/0.5 Mg (3 Ml) Ud) 3 ml INH RQID [facility] Last Admin: 05/10/17 11:56 Dose: 3 ml Aspirin (Aspirin Chewable) 81 mg PO DAILY [facility] Last Admin: 05/10/17 08:38 Dose: 81 mg Atorvastatin Calcium (Lipitor) 40 mg PO DAILY [facility] Last Admin: 05/10/17 08:40 Dose: 40 mg Enoxaparin Sodium (Lovenox) 40 mg SC DAILY [facility] PRN Reason: Protocol Last Admin: 05/10/17 08:40 Dose: 40 mg Folic Acid (Folic Acid) 1 mg PO DAILY [facility] Last Admin: 05/10/17 08:40 Dose: 1 mg Guaifenesin (Robitussin) 100 mg PO Q6 PRN PRN Reason: Cough Vancomycin HCl 1 gm/ Sodium (Chloride) 250 mls @ 166.667 mls/hr IVPB Q12 [facility] Last Admin: 05/10/17 11:30 Dose: 166.667 mls/hr Piperacillin Sod/Tazobactam (Sod 4.5 gm/ Sodium Chloride) 100 mls @ 100 mls/hr IVPB Q8 [facility] Last Admin: 05/10/17 10:00 Dose: 100 mls/hr Ciprofloxacin (Cipro 400mg/200ml Dsw) 400 mg in 200 mls @ 200 mls/hr IVPB Q12 [facility] Last Admin: 05/10/17 08:38 Dose: 200 mls/hr Dexmedetomidine HCl 400 mcg/ (Sodium Chloride) 100 mls @ 3.62 mls/hr IV .Q24H ONE; 0.2 MCG/KG/HR PRN Reason: Protocol Stop: 05/10/17 14:14 Last Admin: 05/09/17 14:53 Dose: 0.2 mcg/kg/hr, 3.62 mls/hr Potassium Chloride/Dextrose/Sod Cl (Potassium Chl 40 Meq In D5-1/2ns) 1,000 mls @ 125 mls/hr IV .Q8H [facility] Stop: 05/10/17 14:31 Last Admin: 05/10/17 05:56 Dose: 125 mls/hr Multivitamins/Vitamin C (Multi-Delyn Liquid) 5 ml PO DAILY [facility] Last Admin: 05/10/17 08:40 Dose: 5 ml Pantoprazole Sodium (Protonix Susp) 40 mg PO DAILY [facility] Last Admin: 05/10/17 08:40 Dose: 40 mg Quetiapine Fumarate (Seroquel) 25 mg PO HS [facility] Last Admin: 05/03/17 22:55 Dose: Not Given Thiamine HCl (Vitamin B1 Tab) 100 mg PO DAILY [facility] Last Admin: 05/10/17 08:41 Dose: 100 mg - Labs Labs: 05/10/17 04:20 05/10/17 04:20 PT 16.4 Seconds (9.8-13.1) H 05/10/17 04:20 INR 1.6 (0.9-1.2) H 05/10/17 04:20 - Neurological Exam Neurological Exam: Awake, CN II-XII Intact Neuro motor strength exam: Left Upper Extremity: 3, Right Upper Extremity: 4, Left Lower Extremity: 3, Right Lower Extremity: 4 Additional comments: Intubated, on precedex, following commands and answering questions with head movements and thumbs up or thumbs down. Assessment and Plan (1) Acute ischemic stroke Assessment & Plan: Stable appearing right basal ganglia and narayanan radiata stroke based on most recent CT head without evidence of hemorrhagic conversion. Continue aspirin/ plavix for secondary stroke prevention. Will follow up on EEG for altered mental status, although it is more likely that it was due to toxic-metabolic encephalopathy and exacerbation of previous stroke symptoms. Status: Acute
--- NOTE | 2017-05-10 13:52 | CP.PCM.CON ---
History of Present Illness - History of Present Illness History of Present Illness: HPI: This is a 56 y/o undomiciled with PMHx significant for HTN, anemia, and EtOH abuse who comes in with multiple falls with minor head trauma. Pt has since been intubated with leukocytosis and lung infiltrate Past Patient History - Past Medical History & Family History Past Medical History?: Yes - Past Social History Alcohol: Occasional Drugs: Denies - CARDIAC Hx Hypertension: Yes - PULMONARY Hx Tuberculosis: No - NEUROLOGICAL HX Cerebrovascular Accident: No - HEMATOLOGICAL/ONCOLOGICAL Hx Anemia: Yes Hx Human Immunodeficiency Virus (HIV): No - MUSCULOSKELETAL/RHEUMATOLOGICAL Hx Arthritis: Yes - GASTROINTESTINAL Hx Gastrointestinal Disorders: Yes Hx Colitis: Yes - PSYCHIATRIC Hx Substance Use: No - SURGICAL HISTORY Hx Surgeries: Yes Other/Comment: hemmroids - ANESTHESIA Hx Anesthesia: Yes Hx Anesthesia Reactions: No Hx Malignant Hyperthermia: No Meds Allergies/Adverse Reactions: Allergies Allergy/AdvReac Type Severity Reaction Status Date / Time No Known Allergies Allergy Verified 04/26/17 23:00 - Medications Medications: Current Medications Acetaminophen (Tylenol 325mg Tab) 650 mg PO Q6 PRN PRN Reason: Pain, Mild (1-3) Last Admin: 04/29/17 03:37 Dose: 650 mg Acetaminophen (Tylenol 650 Mg Supp) 650 mg ND Q6 PRN PRN Reason: Fever >100.4 F Last Admin: 05/10/17 00:27 Dose: 650 mg Albuterol/Ipratropium (Duoneb 3 Mg/0.5 Mg (3 Ml) Ud) 3 ml INH RQID [facility] Last Admin: 05/10/17 11:56 Dose: 3 ml Aspirin (Aspirin Chewable) 81 mg PO DAILY [facility] Last Admin: 05/10/17 08:38 Dose: 81 mg Atorvastatin Calcium (Lipitor) 40 mg PO DAILY [facility] Last Admin: 05/10/17 08:40 Dose: 40 mg Enoxaparin Sodium (Lovenox) 40 mg SC DAILY [facility] PRN Reason: Protocol Last Admin: 05/10/17 08:40 Dose: 40 mg Folic Acid (Folic Acid) 1 mg PO DAILY [facility] Last Admin: 05/10/17 08:40 Dose: 1 mg Guaifenesin (Robitussin) 100 mg PO Q6 PRN PRN Reason: Cough Vancomycin HCl 1 gm/ Sodium (Chloride) 250 mls @ 166.667 mls/hr IVPB Q12 [facility] Last Admin: 05/10/17 11:30 Dose: 166.667 mls/hr Piperacillin Sod/Tazobactam (Sod 4.5 gm/ Sodium Chloride) 100 mls @ 100 mls/hr IVPB Q8 [facility] Last Admin: 05/10/17 10:00 Dose: 100 mls/hr Ciprofloxacin (Cipro 400mg/200ml Dsw) 400 mg in 200 mls @ 200 mls/hr IVPB Q12 [facility] Last Admin: 05/10/17 08:38 Dose: 200 mls/hr Dexmedetomidine HCl 400 mcg/ (Sodium Chloride) 100 mls @ 3.62 mls/hr IV .Q24H ONE; 0.2 MCG/KG/HR PRN Reason: Protocol Stop: 05/10/17 14:14 Last Admin: 05/09/17 14:53 Dose: 0.2 mcg/kg/hr, 3.62 mls/hr Potassium Chloride/Dextrose/Sod Cl (Potassium Chl 40 Meq In D5-1/2ns) 1,000 mls @ 125 mls/hr IV .Q8H [facility] Stop: 05/10/17 14:31 Last Admin: 05/10/17 05:56 Dose: 125 mls/hr Multivitamins/Vitamin C (Multi-Delyn Liquid) 5 ml PO DAILY [facility] Last Admin: 05/10/17 08:40 Dose: 5 ml Pantoprazole Sodium (Protonix Susp) 40 mg PO DAILY [facility] Last Admin: 05/10/17 08:40 Dose: 40 mg Quetiapine Fumarate (Seroquel) 25 mg PO HS [facility] Last Admin: 05/03/17 22:55 Dose: Not Given Thiamine HCl (Vitamin B1 Tab) 100 mg PO DAILY [facility] Last Admin: 05/10/17 08:41 Dose: 100 mg Physical Exam - Respiratory Exam Additional comments: coarse rales + Results - Vital Signs Recent Vital Signs: Last Vital Signs Temp 98.7 F 05/10/17 08:00 Pulse 81 05/10/17 13:00 Resp 27 H 05/10/17 13:00 BP 120/73 05/10/17 13:00 Pulse Ox 100 05/10/17 13:00 - Labs Result Diagrams: 05/10/17 04:20 05/10/17 04:20 Labs: Laboratory Results - last 24 hr 05/09/17 05/10/17 05/10/17 13:30 04:13 04:20 WBC RBC Hgb Hct MCV MCH MCHC RDW Plt Count MPV Neut % (Auto) Lymph % (Auto) [place] % (Auto) Eos % (Auto) Baso % (Auto) Neut # Lymph # [place] # Eos # Baso # Neutrophils % (Manual) Band Neutrophils % Lymphocytes % (Manual) Monocytes % (Manual) Platelet Estimate PT 16.4 H INR 1.6 H pCO2 34 L 37 pO2 79 L 221 H HCO3 28.2 H 28.6 H ABG pH 7.51 H 7.49 H ABG Total CO2 28.1 H 29.3 H ABG O2 Saturation 98.0 99.1 H ABG O2 Content 18.5 17.5 ABG Base Excess 4.3 H 4.7 H ABG Hemoglobin 13.8 12.6 ABG Carboxyhemoglobin 1.7 H 1.0 POC ABG HHb (Measured) 1.9 0.9 ABG Methemoglobin 1.4 1.9 ABG O2 Capacity 18.9 17.7 [place] Test Yes Yes A-a O2 Difference 449.0 303.0 Hgb O2 Saturation 94.9 L 96.2 Vent Mode A/cprvc A/c Mechanical Rate 12 12 FiO2 80.0 80.0 Tidal Volume 450 450 PEEP 5 5 Sodium Potassium Chloride Carbon Dioxide Anion Gap BUN Creatinine Est GFR ( Amer) Est GFR (Non-Af Amer) Random Glucose Calcium 05/10/17 05/10/17 04:20 04:20 WBC 23.7 H RBC 3.48 L Hgb 11.9 L Hct 35.3 MCV 101.4 H MCH 34.3 H MCHC 33.8 RDW 14.4 Plt Count 278 MPV 8.1 Neut % (Auto) 90.0 H Lymph % (Auto) 3.4 L [place] % (Auto) 5.9 Eos % (Auto) 0.2 Baso % (Auto) 0.5 Neut # 21.4 H Lymph # 0.8 L [place] # 1.4 H Eos # 0.1 Baso # 0.1 Neutrophils % (Manual) 87 H Band Neutrophils % 5 H Lymphocytes % (Manual) 4 L Monocytes % (Manual) 4 Platelet Estimate Normal PT INR pCO2 pO2 HCO3 ABG pH ABG Total CO2 ABG O2 Saturation ABG O2 Content ABG Base Excess ABG Hemoglobin ABG Carboxyhemoglobin POC ABG HHb (Measured) ABG Methemoglobin ABG O2 Capacity [place] Test A-a O2 Difference Hgb O2 Saturation Vent Mode Mechanical Rate FiO2 Tidal Volume PEEP Sodium 137 Potassium 3.6 Chloride 104 Carbon Dioxide 24 Anion Gap 12 BUN 14 Creatinine 0.6 L Est GFR ( Amer) > 60 Est GFR (Non-Af Amer) > 60 Random Glucose 150 H Calcium 8.8 Assessment & Plan - Assessment and Plan (Free Text) Assessment: Pneumonia aquired in hospital with MRSA pos sputum. Agree with Vancomycin ig iv q 12h In view of worsening pneumonia in hospital, will switch zosyn to meropenem. d/c cipro. follow blood cultures
--- NOTE | 2017-05-10 15:16 | CP.PCM.CON ---
<Kaylene Rodney - Last Filed: 05/10/17 14:59> History of Present Illness - History of Present Illness History of Present Illness: General Surgery - Dr. Osborne 56yo M w/ hx of ETOH abuse, HTN, Anemia, Homeless, who presented to the hospital 04/26 with complaints of lower ext. weakness/ataxia leading to multiple falls and minor head trauma. 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 He continued to have worsening left sided weakness and dysphagia. On 05/04 pt went for barium swallow which showed aspiration of liquids. He developed aspiration pneumonia and respiratory status continued to decline, now with MRSA+ in the sputum. On 05/09 pt developed acute respiratory failure and was intubated and transferred to ICU. PT is S&E in the ICU. He is on light sedation but awake and responds with nodding to some questions. Surgery is consulted for tracheostomy. PMH: HTN, Anemia, ETOH abuse PSH: Hemorrhoidectomy Hx of ETOH abuse and Tobacco use, Homeless [employer] Family currently in process to make Corky soler the [employer]. Review of Systems - Review of Systems Systems not reviewed;Unavailable: Intubated Past Patient History - Past Medical History & Family History Past Medical History?: Yes - Past Social History Alcohol: Occasional Drugs: Denies - CARDIAC Hx Hypertension: Yes - PULMONARY Hx Tuberculosis: No - NEUROLOGICAL HX Cerebrovascular Accident: No - HEMATOLOGICAL/ONCOLOGICAL Hx Anemia: Yes Hx Human Immunodeficiency Virus (HIV): No - MUSCULOSKELETAL/RHEUMATOLOGICAL Hx Arthritis: Yes - GASTROINTESTINAL Hx Gastrointestinal Disorders: Yes Hx Colitis: Yes - PSYCHIATRIC Hx Substance Use: No - SURGICAL HISTORY Hx Surgeries: Yes Other/Comment: hemmroids - ANESTHESIA Hx Anesthesia: Yes Hx Anesthesia Reactions: No Hx Malignant Hyperthermia: No Meds Allergies/Adverse Reactions: Allergies Allergy/AdvReac Type Severity Reaction Status Date / Time No Known Allergies Allergy Verified 04/26/17 23:00 - Medications Medications: Current Medications Acetaminophen (Tylenol 325mg Tab) 650 mg PO Q6 PRN PRN Reason: Pain, Mild (1-3) Last Admin: 04/29/17 03:37 Dose: 650 mg Acetaminophen (Tylenol 650 Mg Supp) 650 mg IN Q6 PRN PRN Reason: Fever >100.4 F Last Admin: 05/10/17 00:27 Dose: 650 mg Albuterol/Ipratropium (Duoneb 3 Mg/0.5 Mg (3 Ml) Ud) 3 ml INH RQID [facility] Last Admin: 05/10/17 11:56 Dose: 3 ml Aspirin (Aspirin Chewable) 81 mg PO DAILY [facility] Last Admin: 05/10/17 08:38 Dose: 81 mg Atorvastatin Calcium (Lipitor) 40 mg PO DAILY [facility] Last Admin: 05/10/17 08:40 Dose: 40 mg Enoxaparin Sodium (Lovenox) 40 mg SC DAILY [facility] PRN Reason: Protocol Last Admin: 05/10/17 08:40 Dose: 40 mg Folic Acid (Folic Acid) 1 mg PO DAILY [facility] Last Admin: 05/10/17 08:40 Dose: 1 mg Guaifenesin (Robitussin) 100 mg PO Q6 PRN PRN Reason: Cough Vancomycin HCl 1 gm/ Sodium (Chloride) 250 mls @ 166.667 mls/hr IVPB Q12 [facility] Last Admin: 05/10/17 11:30 Dose: 166.667 mls/hr Meropenem 1 gm/ Sodium (Chloride) 100 mls @ 100 mls/hr IVPB Q8 [facility] Multivitamins/Vitamin C (Multi-Delyn Liquid) 5 ml PO DAILY [facility] Last Admin: 05/10/17 08:40 Dose: 5 ml Pantoprazole Sodium (Protonix Susp) 40 mg PO DAILY [facility] Last Admin: 05/10/17 08:40 Dose: 40 mg Quetiapine Fumarate (Seroquel) 25 mg PO HS [facility] Last Admin: 05/03/17 22:55 Dose: Not Given Thiamine HCl (Vitamin B1 Tab) 100 mg PO DAILY [facility] Last Admin: 05/10/17 08:41 Dose: 100 mg Physical Exam - Constitutional Appears: No Acute Distress - Head Exam Head Exam: ATRAUMATIC, NORMAL INSPECTION, NORMOCEPHALIC - ENT Exam ENT Exam: Mucous Membranes Dry - Neck Exam Neck exam: Positive for: Normal Inspection Additional comments: trachea midline, no prior scars - Respiratory Exam Respiratory Exam: absent: Respiratory Distress Additional comments: intubated on vent - 60% fio2, 5 peep. w/ copious yellow purulent secretions - Cardiovascular Exam Cardiovascular Exam: Tachycardia (90s), REGULAR RHYTHM - GI/Abdominal Exam GI & Abdominal Exam: Soft. absent: Distended - Extremities Exam Extremities exam: Negative for: pedal edema - Neurological Exam Neurological exam: Alert - Skin Skin Exam: Dry, Intact Results - Vital Signs Recent Vital Signs: Last Vital Signs Temp 98.7 F 05/10/17 08:00 Pulse 81 05/10/17 14:00 Resp 23 05/10/17 14:00 BP 128/71 05/10/17 14:00 Pulse Ox 100 05/10/17 14:00 - Labs Result Diagrams: 05/10/17 04:20 05/10/17 04:20 Labs: Laboratory Results - last 24 hr 05/10/17 05/10/17 05/10/17 04:13 04:20 04:20 WBC 23.7 H RBC 3.48 L Hgb 11.9 L Hct 35.3 MCV 101.4 H MCH 34.3 H MCHC 33.8 RDW 14.4 Plt Count 278 MPV 8.1 Neut % (Auto) 90.0 H Lymph % (Auto) 3.4 L [place] % (Auto) 5.9 Eos % (Auto) 0.2 Baso % (Auto) 0.5 Neut # 21.4 H Lymph # 0.8 L [place] # 1.4 H Eos # 0.1 Baso # 0.1 Neutrophils % (Manual) 87 H Band Neutrophils % 5 H Lymphocytes % (Manual) 4 L Monocytes % (Manual) 4 Platelet Estimate Normal PT 16.4 H INR 1.6 H pCO2 37 pO2 221 H HCO3 28.6 H ABG pH 7.49 H ABG Total CO2 29.3 H ABG O2 Saturation 99.1 H ABG O2 Content 17.5 ABG Base Excess 4.7 H ABG Hemoglobin 12.6 ABG Carboxyhemoglobin 1.0 POC ABG HHb (Measured) 0.9 ABG Methemoglobin 1.9 ABG O2 Capacity 17.7 [place] Test Yes A-a O2 Difference 303.0 Hgb O2 Saturation 96.2 Vent Mode A/c Mechanical Rate 12 FiO2 80.0 Tidal Volume 450 PEEP 5 Sodium Potassium Chloride Carbon Dioxide Anion Gap BUN Creatinine Est GFR ( Amer) Est GFR (Non-Af Amer) Random Glucose Calcium 05/10/17 04:20 WBC RBC Hgb Hct MCV MCH MCHC RDW Plt Count MPV Neut % (Auto) Lymph % (Auto) [place] % (Auto) Eos % (Auto) Baso % (Auto) Neut # Lymph # [place] # Eos # Baso # Neutrophils % (Manual) Band Neutrophils % Lymphocytes % (Manual) Monocytes % (Manual) Platelet Estimate PT INR pCO2 pO2 HCO3 ABG pH ABG Total CO2 ABG O2 Saturation ABG O2 Content ABG Base Excess ABG Hemoglobin ABG Carboxyhemoglobin POC ABG HHb (Measured) ABG Methemoglobin ABG O2 Capacity [place] Test A-a O2 Difference Hgb O2 Saturation Vent Mode Mechanical Rate FiO2 Tidal Volume PEEP Sodium 137 Potassium 3.6 Chloride 104 Carbon Dioxide 24 Anion Gap 12 BUN 14 Creatinine 0.6 L Est GFR ( Amer) > 60 Est GFR (Non-Af Amer) > 60 Random Glucose 150 H Calcium 8.8 Assessment & Plan - Assessment and Plan (Free Text) Assessment: 56 yo M s/p CVA w/ MRSA PNA and acute resp. failure req. intubation 05/09 -Pt not likely to be weaned off vent d/t CVA and PNA -Will dw family/nephew the option of tracheostomy -GI on consult for PEG -Continue care as per ICU team -Will follow wJuan Antonio Rodney PGY3 <Jeremy Osborne - Last Filed: 05/11/17 10:09> History of Present Illness - History of Present Illness History of Present Illness: Patient was seen and examined at the bedside. Agree with resident's note above. Meds - Medications Medications: Current Medications Acetaminophen (Tylenol 325mg Tab) 650 mg PO Q6 PRN PRN Reason: Pain, Mild (1-3) Last Admin: 05/10/17 15:55 Dose: 650 mg Acetaminophen (Tylenol 650 Mg Supp) 650 mg IN Q6 PRN PRN Reason: Fever >100.4 F Last Admin: 05/11/17 04:50 Dose: 650 mg Albuterol/Ipratropium (Duoneb 3 Mg/0.5 Mg (3 Ml) Ud) 3 ml INH RQID [facility] Last Admin: 05/11/17 08:09 Dose: 3 ml Aspirin (Aspirin Chewable) 81 mg PO DAILY [facility] Last Admin: 05/10/17 08:38 Dose: 81 mg Atorvastatin Calcium (Lipitor) 40 mg PO DAILY [facility] Last Admin: 05/10/17 08:40 Dose: 40 mg Enoxaparin Sodium (Lovenox) 40 mg SC DAILY [facility] PRN Reason: Protocol Last Admin: 05/11/17 09:30 Dose: 40 mg Folic Acid (Folic Acid) 1 mg PO DAILY [facility] Last Admin: 05/11/17 09:27 Dose: 1 mg Guaifenesin (Robitussin) 100 mg PO Q6 PRN PRN Reason: Cough Vancomycin HCl 1 gm/ Sodium (Chloride) 250 mls @ 166.667 mls/hr IVPB Q12 [facility] Last Admin: 05/11/17 09:32 Dose: 166.667 mls/hr Meropenem 1 gm/ Sodium (Chloride) 100 mls @ 100 mls/hr IVPB Q8 [facility] Last Admin: 05/11/17 09:30 Dose: 100 mls/hr Potassium Chloride/Dextrose/Sod Cl (Potassium Chl 40 Meq In D5-1/2ns) 1,000 mls @ 75 mls/hr IV .[id number] [facility] Stop: 05/11/17 17:38 Last Admin: 05/10/17 20:38 Dose: 75 mls/hr Lorazepam (Ativan) 1 mg IVP Q6 PRN PRN Reason: Agitation Last Admin: 05/10/17 22:17 Dose: 1 mg Multivitamins/Vitamin C (Multi-Delyn Liquid) 5 ml PO DAILY [facility] Last Admin: 05/11/17 09:31 Dose: 5 ml Pantoprazole Sodium (Protonix Susp) 40 mg PO DAILY [facility] Last Admin: 05/11/17 09:31 Dose: 40 mg Quetiapine Fumarate (Seroquel) 25 mg PO HS [facility] Last Admin: 05/03/17 22:55 Dose: Not Given Thiamine HCl (Vitamin B1 Tab) 100 mg PO DAILY [facility] Last Admin: 05/11/17 09:35 Dose: 100 mg Results - Vital Signs Recent Vital Signs: Last Vital Signs Temp 99.7 F H 05/11/17 08:00 Pulse 77 05/11/17 08:00 Resp 20 05/11/17 08:00 BP 153/85 H 05/11/17 08:00 Pulse Ox 100 05/11/17 08:00 - Labs Result Diagrams: 05/11/17 04:30 05/11/17 04:30 Labs: Laboratory Results - last 24 hr 05/10/17 05/10/17 05/11/17 19:50 21:33 04:30 WBC 16.8 H RBC 3.42 L Hgb 11.6 L Hct 34.6 L MCV 101.2 H MCH 33.8 H MCHC 33.5 RDW 14.0 Plt Count 285 MPV 8.5 Neut % (Auto) 85.6 H Lymph % (Auto) 4.3 L [place] % (Auto) 7.6 Eos % (Auto) 1.6 Baso % (Auto) 0.9 Neut # 14.4 H Lymph # 0.7 L [place] # 1.3 H Eos # 0.3 Baso # 0.2 pCO2 pO2 HCO3 ABG pH ABG Total CO2 ABG O2 Saturation ABG O2 Content ABG Base Excess ABG Hemoglobin ABG Carboxyhemoglobin POC ABG HHb (Measured) ABG Methemoglobin ABG O2 Capacity [place] Test A-a O2 Difference Hgb O2 Saturation Vent Mode Mechanical Rate FiO2 Tidal Volume PEEP Sodium Potassium Chloride Carbon Dioxide Anion Gap BUN Creatinine Est GFR ( Amer) Est GFR (Non-Af Amer) POC Glucose (mg/dL) 119 H Random Glucose Calcium Total Bilirubin AST ALT Alkaline Phosphatase Total Protein Albumin Globulin Albumin/Globulin Ratio Vancomycin Trough 8.4 05/11/17 05/11/17 04:30 04:41 WBC RBC Hgb Hct MCV MCH MCHC RDW Plt Count MPV Neut % (Auto) Lymph % (Auto) [place] % (Auto) Eos % (Auto) Baso % (Auto) Neut # Lymph # [place] # Eos # Baso # pCO2 34 L pO2 128 H HCO3 28.2 H ABG pH 7.51 H ABG Total CO2 28.1 H ABG O2 Saturation 98.8 H ABG O2 Content 16.4 ABG Base Excess 4.2 H ABG Hemoglobin 12.0 ABG Carboxyhemoglobin 0.8 POC ABG HHb (Measured) 1.2 ABG Methemoglobin 1.8 ABG O2 Capacity 16.6 [place] Test Yes A-a O2 Difference 257.0 Hgb O2 Saturation 96.1 Vent Mode A/c Mechanical Rate 12 FiO2 60.0 Tidal Volume 450 PEEP 5 Sodium 137 Potassium 3.4 L Chloride 105 Carbon Dioxide 26 Anion Gap 9 L BUN 11 Creatinine 0.4 L Est GFR ( Amer) > 60 Est GFR (Non-Af Amer) > 60 POC Glucose (mg/dL) Random Glucose 123 H Calcium 8.8 Total Bilirubin 0.5 AST 25 ALT 30 Alkaline Phosphatase 58 Total Protein 6.0 L Albumin 2.5 L Globulin 3.5 Albumin/Globulin Ratio 0.7 L Vancomycin Trough Assessment & Plan - Assessment and Plan (Free Text) Plan: - Patient is on FiO2 of 60% on the ventilator, will hold off on the tracheostomy at present time until patient is clinically improved
--- NOTE | 2017-05-10 15:49 | CP.CCUPN ---
CCU Subjective - Physician Review Events Since Last Encounter (Free Text): 05/10/17 15:40 alert, following commands, intubated. CCU Objective - Vital Signs / Intake & Output Vital Signs (Last 4 hours): Vital Signs Pulse Resp BP Pulse Ox 05/10/17 15:00 94 H 27 H 146/78 100 05/10/17 14:00 81 23 128/71 100 05/10/17 13:00 81 27 H 120/73 100 05/10/17 12:00 89 30 H 140/73 99 Intake and Output (Last 8hrs): Intake & Output 05/10/17 05/10/17 05/10/17 06:59 14:59 22:59 Intake Total 1100 1047 Balance 1100 1047 Intake: IV 1000 1000 Intake, Piggyback 100 7 Tube Feeding 40 - Physical Exam Head: Positive for: Atraumatic, Normocephalic Pupils: Positive for: PERRL Extroacular Muscles: Positive for: EOMI Conjunctiva: Positive for: Normal Mouth: Positive for: Moist Mucous Membranes Respiratory/Chest: Positive for: Decreased Breath Sounds (left), Rhonchi Cardiovascular: Positive for: Regular Rate and Rhythm Abdomen: Positive for: Normal Bowel Sounds. Negative for: Tenderness, Distention Psychiatric: Positive for: Alert - Medications Active Medications: Active Medications Generic Name Dose Route Start Last Admin Trade Name Freq PRN Reason Stop Dose Admin Acetaminophen 650 mg 04/27/17 03:51 04/29/17 03:37 Tylenol 325mg Tab PO 650 mg Q6 PRN Administration Pain, Mild (1-3) Acetaminophen 650 mg 05/09/17 12:30 05/10/17 00:27 Tylenol 650 Mg Supp OR 650 mg Q6 PRN Administration Fever >100.4 F Albuterol/Ipratropium 3 ml 05/04/17 20:00 05/10/17 11:56 Duoneb 3 Mg/0.5 Mg (3 Ml) Ud INH 3 ml RQID STEPHANI Administration Aspirin 81 mg 04/27/17 09:00 05/10/17 08:38 Aspirin Chewable PO 81 mg DAILY STEPHANI Administration Atorvastatin Calcium 40 mg 04/27/17 09:00 05/10/17 08:40 Lipitor PO 40 mg DAILY STEPHANI Administration Enoxaparin Sodium 40 mg 04/27/17 09:00 05/10/17 08:40 Lovenox SC 40 mg DAILY STEPHANI Administration Protocol Folic Acid 1 mg 04/27/17 15:15 05/10/17 08:40 Folic Acid PO 1 mg DAILY STEPHANI Administration Guaifenesin 100 mg 05/09/17 15:26 Robitussin PO Q6 PRN Cough Vancomycin HCl 1 gm/ Sodium 250 mls @ 166.667 mls/hr 05/04/17 21:00 05/10/17 11:30 Chloride IVPB 166.667 mls/hr Q12 STEPHANI Administration Meropenem 1 gm/ Sodium 100 mls @ 100 mls/hr 05/10/17 17:00 Chloride IVPB Q8 STEPHANI Multivitamins/Vitamin C 5 ml 04/27/17 15:15 05/10/17 08:40 Multi-Delyn Liquid PO 5 ml DAILY STEPHANI Administration Pantoprazole Sodium 40 mg 05/10/17 09:00 05/10/17 08:40 Protonix Susp PO 40 mg DAILY STEPHANI Administration Quetiapine Fumarate 25 mg 04/28/17 22:00 05/03/17 22:55 Seroquel PO Not Given HS STEPHANI Thiamine HCl 100 mg 04/27/17 15:15 05/10/17 08:41 Vitamin B1 Tab PO 100 mg DAILY STEPHANI Administration - Patient Studies Lab Studies: Microbiology Studies 05/09/17 13:10 Blood Culture - Preliminary Blood NO GROWTH AFTER 24 HOURS 05/07/17 19:12 Gram Stain - Final Sputum Sputum Culture - Final Methicillin Resistant S Aureus 05/04/17 18:11 Blood Culture - Final Blood NO GROWTH AFTER 5 DAYS Gram Stain - Final TEST NOT PERFORMED Lab Studies 05/10/17 05/10/17 05/10/17 Range/Units 04:20 04:20 04:20 WBC 23.7 H (4.8-10.8) K/uL RBC 3.48 L (4.40-5.90) Mil/uL Hgb 11.9 L (12.0-18.0) g/dL Hct 35.3 (35.0-51.0) % MCV 101.4 H (80.0-94.0) fl MCH 34.3 H (27.0-31.0) pg MCHC 33.8 (33.0-37.0) g/dL RDW 14.4 (11.5-14.5) % Plt Count 278 (130-400) K/uL MPV 8.1 (7.2-11.7) fl Neut % (Auto) 90.0 H (50.0-75.0) % Lymph % (Auto) 3.4 L (20.0-40.0) % [place] % (Auto) 5.9 (0.0-10.0) % Eos % (Auto) 0.2 (0.0-4.0) % Baso % (Auto) 0.5 (0.0-2.0) % Neut # 21.4 H (1.8-7.0) K/uL Lymph # 0.8 L (1.0-4.3) K/uL [place] # 1.4 H (0.0-0.8) K/uL Eos # 0.1 (0.0-0.7) K/uL Baso # 0.1 (0.0-0.2) K/uL Neutrophils % (Manual) 87 H (42-75) % Band Neutrophils % 5 H (0-2) % Lymphocytes % (Manual) 4 L (20-50) % Monocytes % (Manual) 4 (0-10) % Platelet Estimate Normal (NORMAL) PT 16.4 H (9.8-13.1) Seconds INR 1.6 H (0.9-1.2) pCO2 (35-45) mm/Hg pO2 (80-100) mm/Hg HCO3 (21-28) mmol/L ABG pH (7.35-7.45) ABG Total CO2 (22-28) mmol/L ABG O2 Saturation (95-98) % ABG O2 Content (15-23) ML/dL ABG Base Excess (-2.0-3.0) mmol/L ABG Hemoglobin (11.7-17.4) g/dL ABG Carboxyhemoglobin (0.5-1.5) % POC ABG HHb (Measured) (0.0-5.0) % ABG Methemoglobin (0.0-3.0) % ABG O2 Capacity (16-24) mL/dL Carson Test A-a O2 Difference mm/Hg Hgb O2 Saturation (95.0-98.0) % Vent Mode Mechanical Rate FiO2 % Tidal Volume PEEP Sodium 137 (132-148) mmol/l Potassium 3.6 (3.6-5.0) MMOL/L Chloride 104 (98-107) mmol/L Carbon Dioxide 24 (22-30) mmol/L Anion Gap 12 (10-20) BUN 14 (9-20) mg/dl Creatinine 0.6 L (0.8-1.5) mg/dL Est GFR ( Amer) > 60 Est GFR (Non-Af Amer) > 60 Random Glucose 150 H (75-110) mg/dL Calcium 8.8 (8.4-10.2) mg/dL 05/10/17 Range/Units 04:13 WBC (4.8-10.8) K/uL RBC (4.40-5.90) Mil/uL Hgb (12.0-18.0) g/dL Hct (35.0-51.0) % MCV (80.0-94.0) fl MCH (27.0-31.0) pg MCHC (33.0-37.0) g/dL RDW (11.5-14.5) % Plt Count (130-400) K/uL MPV (7.2-11.7) fl Neut % (Auto) (50.0-75.0) % Lymph % (Auto) (20.0-40.0) % [place] % (Auto) (0.0-10.0) % Eos % (Auto) (0.0-4.0) % Baso % (Auto) (0.0-2.0) % Neut # (1.8-7.0) K/uL Lymph # (1.0-4.3) K/uL [place] # (0.0-0.8) K/uL Eos # (0.0-0.7) K/uL Baso # (0.0-0.2) K/uL Neutrophils % (Manual) (42-75) % Band Neutrophils % (0-2) % Lymphocytes % (Manual) (20-50) % Monocytes % (Manual) (0-10) % Platelet Estimate (NORMAL) PT (9.8-13.1) Seconds INR (0.9-1.2) pCO2 37 (35-45) mm/Hg pO2 221 H (80-100) mm/Hg HCO3 28.6 H (21-28) mmol/L ABG pH 7.49 H (7.35-7.45) ABG Total CO2 29.3 H (22-28) mmol/L ABG O2 Saturation 99.1 H (95-98) % ABG O2 Content 17.5 (15-23) ML/dL ABG Base Excess 4.7 H (-2.0-3.0) mmol/L ABG Hemoglobin 12.6 (11.7-17.4) g/dL ABG Carboxyhemoglobin 1.0 (0.5-1.5) % POC ABG HHb (Measured) 0.9 (0.0-5.0) % ABG Methemoglobin 1.9 (0.0-3.0) % ABG O2 Capacity 17.7 (16-24) mL/dL Carson Test Yes A-a O2 Difference 303.0 mm/Hg Hgb O2 Saturation 96.2 (95.0-98.0) % Vent Mode A/c Mechanical Rate 12 FiO2 80.0 % Tidal Volume 450 PEEP 5 Sodium (132-148) mmol/l Potassium (3.6-5.0) MMOL/L Chloride (98-107) mmol/L Carbon Dioxide (22-30) mmol/L Anion Gap (10-20) BUN (9-20) mg/dl Creatinine (0.8-1.5) mg/dL Est GFR ( Amer) Est GFR (Non-Af Amer) Random Glucose (75-110) mg/dL Calcium (8.4-10.2) mg/dL Laboratory Results - last 24 hr 05/10/17 05/10/17 05/10/17 04:13 04:20 04:20 WBC 23.7 H RBC 3.48 L Hgb 11.9 L Hct 35.3 MCV 101.4 H MCH 34.3 H MCHC 33.8 RDW 14.4 Plt Count 278 MPV 8.1 Neut % (Auto) 90.0 H Lymph % (Auto) 3.4 L [place] % (Auto) 5.9 Eos % (Auto) 0.2 Baso % (Auto) 0.5 Neut # 21.4 H Lymph # 0.8 L [place] # 1.4 H Eos # 0.1 Baso # 0.1 Neutrophils % (Manual) 87 H Band Neutrophils % 5 H Lymphocytes % (Manual) 4 L Monocytes % (Manual) 4 Platelet Estimate Normal PT 16.4 H INR 1.6 H pCO2 37 pO2 221 H HCO3 28.6 H ABG pH 7.49 H ABG Total CO2 29.3 H ABG O2 Saturation 99.1 H ABG O2 Content 17.5 ABG Base Excess 4.7 H ABG Hemoglobin 12.6 ABG Carboxyhemoglobin 1.0 POC ABG HHb (Measured) 0.9 ABG Methemoglobin 1.9 ABG O2 Capacity 17.7 Carson Test Yes A-a O2 Difference 303.0 Hgb O2 Saturation 96.2 Vent Mode A/c Mechanical Rate 12 FiO2 80.0 Tidal Volume 450 PEEP 5 Sodium Potassium Chloride Carbon Dioxide Anion Gap BUN Creatinine Est GFR ( Amer) Est GFR (Non-Af Amer) Random Glucose Calcium 05/10/17 04:20 WBC RBC Hgb Hct MCV MCH MCHC RDW Plt Count MPV Neut % (Auto) Lymph % (Auto) [place] % (Auto) Eos % (Auto) Baso % (Auto) Neut # Lymph # [place] # Eos # Baso # Neutrophils % (Manual) Band Neutrophils % Lymphocytes % (Manual) Monocytes % (Manual) Platelet Estimate PT INR pCO2 pO2 HCO3 ABG pH ABG Total CO2 ABG O2 Saturation ABG O2 Content ABG Base Excess ABG Hemoglobin ABG Carboxyhemoglobin POC ABG HHb (Measured) ABG Methemoglobin ABG O2 Capacity [place] Test A-a O2 Difference Hgb O2 Saturation Vent Mode Mechanical Rate FiO2 Tidal Volume PEEP Sodium 137 Potassium 3.6 Chloride 104 Carbon Dioxide 24 Anion Gap 12 BUN 14 Creatinine 0.6 L Est GFR ( Amer) > 60 Est GFR (Non-Af Amer) > 60 Random Glucose 150 H Calcium 8.8 Review of Systems - Review of Systems Systems not reviewed;Unavailable: Intubated Critical Care Progress Note - Nutrition Nutrition: Nutrition Category Date Time Status NPO Diet [DIET] Diets 05/04/17 Lunch Active Assessment/Plan (1) CVA (cerebral vascular accident) Assessment and plan: 56yo M. PMHx HTN, anemia, ETOH abuse, homeless. p/w ataxia and falls (04/26). Found to have multiple bilateral lacunae/infarcts and severe cortical atrophy. (05/04) MRI - right basal ganglia infarct. Patient's mental status has slowly declined, requiring intubation (05/09). Neuro: CT head stable, AMS was most likely metabolic encephalopathy from sepsis on top of an old stroke. Patient will also have EEG to assess for status epilepticus. We'll sedate with dexmedetomidine. Lipitor 40 mg by mouth daily. Pulm: Acute respiratory failure with hypoxia, intubated now on vent. Chest x- ray is indicative of aspiration pneumonia with consolidation in the left lower lobe, continue IV antibiotics, DuoNeb's, mucolytic's. Patient will need trach for airway protection, slowly aspirating his own secretions. Surgery consulted. CV: Hemodynamically stable. Hem: No acute issues, ASA and Plavix currently held for procedures. Renal: No acute issues, urine output within normal limits, we will monitor. Endo: No acute issues GI: Nothing by mouth, Tube feeds Jevity@40. Will reconsult GI for PEG placement. ID: Sepsis from aspiration pneumonia, continue ciprofloxacin, vancomycin, Zosyn. DVT proph - Lovenox GI proph - Protonix lew for strict I/O's during acute illness Code status - full code Critical Care Time 35 minutes Multi-disciplinary rounds were performed with house staff, nursing, speech therapy, respiratory therapy, pharmacy and nutrition with integrated input from the primary team/attending and other consulting services. The documented time is cumulative and includes review of patient data/exams/labs/chart review and examination of the patient on rounds and throughout the day; time is exclusive of any procedures or teaching time. Current Visit: Yes Status: Acute
[2017-05-10] MEDS: Meropenem 1 GM in Sodium Chloride 0.9% 100 ML IVPB SCH (16:00)
--- NOTE | 2017-05-10 16:23 | CP.PCM.CON ---
History of Present Illness - History of Present Illness History of Present Illness: Pulmonary consult for Aspiration PNA, Intubated. This is a 56 y/o homeless[facility] after S/P fall 2nd to weakness, off balance while drinking having minor head trauma with no improvement. Pt was admitted to Telemetry, there after MRI Brain showed : acute R MCA territory infarction involving the R narayanan radiala and basal ganglia , also Pt had CXR showing L Perihilar and LLL consolidation that may represent PNA. On 05/09/17 Pt became lethargic, with slurry speech, L facial droop and L sided weakness, there after, Pt was transferred to ICU for Acute respiratory failure, possible Aspiration PNA. Placed in mechanical ventilation , PRVC/AC 12, FIO2 60%. Worsening symptoms: Occasional productive cough with thick yellowish secretions requiring frequents suctioning. Aggravating factor: Unable to answer questions. PMHx: HTN, Anemia, Chronic lumbago 2nd to degenerative disk disease, Colitis, O /A, Hx of falls, Hx of ETOH abuse. Swallow Barium showed: Penetration and aspiration demonstrated with honey and puree liquids. Review of Systems - Review of Systems Systems not reviewed;Unavailable: Acuity of Condition, Intubated Past Patient History - Past Medical History & Family History Past Medical History?: Yes Pertinent Family History: MIs - Past Social History Smoking Status: Light Smoker < 10 Cigarettes Daily Alcohol: Occasional Drugs: Denies Home Situation {Lives}: Homeless - CARDIAC Hx Cardiac Disorders: Yes Hx Hypertension: Yes - PULMONARY Hx Respiratory Disorders: No Hx Tuberculosis: No - NEUROLOGICAL Hx Neurological Disorder: No HX Cerebrovascular Accident: No - HEENT Hx HEENT Problems: No - RENAL Hx Chronic Kidney Disease: No - ENDOCRINE/METABOLIC Hx Endocrine Disorders: No - HEMATOLOGICAL/ONCOLOGICAL Hx Blood Disorders: Yes Hx Anemia: Yes Hx Human Immunodeficiency Virus (HIV): No - INTEGUMENTARY Hx Dermatological Problems: No - MUSCULOSKELETAL/RHEUMATOLOGICAL Hx Musculoskeletal Disorders: Yes Hx Arthritis: Yes Hx Back Pain: Yes - GASTROINTESTINAL Hx Gastrointestinal Disorders: Yes Hx Colitis: Yes - GENITOURINARY/GYNECOLOGICAL Hx Genitourinary Disorders: No - PSYCHIATRIC Hx Psychophysiologic Disorder: No Hx Substance Use: No Other/Comment: ETOH abuse - SURGICAL HISTORY Hx Surgeries: Yes Other/Comment: hemmroids - ANESTHESIA Hx Anesthesia: Yes Hx Anesthesia Reactions: No Hx Malignant Hyperthermia: No Meds Allergies/Adverse Reactions: Allergies Allergy/AdvReac Type Severity Reaction Status Date / Time No Known Allergies Allergy Verified 04/26/17 23:00 - Medications Medications: Current Medications Acetaminophen (Tylenol 325mg Tab) 650 mg PO Q6 PRN PRN Reason: Pain, Mild (1-3) Last Admin: 05/10/17 15:55 Dose: 650 mg Acetaminophen (Tylenol 650 Mg Supp) 650 mg TN Q6 PRN PRN Reason: Fever >100.4 F Last Admin: 05/10/17 00:27 Dose: 650 mg Albuterol/Ipratropium (Duoneb 3 Mg/0.5 Mg (3 Ml) Ud) 3 ml INH RQID [facility] Last Admin: 05/10/17 15:41 Dose: 3 ml Aspirin (Aspirin Chewable) 81 mg PO DAILY [facility] Last Admin: 05/10/17 08:38 Dose: 81 mg Atorvastatin Calcium (Lipitor) 40 mg PO DAILY [facility] Last Admin: 05/10/17 08:40 Dose: 40 mg Enoxaparin Sodium (Lovenox) 40 mg SC DAILY STEPHANI PRN Reason: Protocol Last Admin: 05/10/17 08:40 Dose: 40 mg Folic Acid (Folic Acid) 1 mg PO DAILY [facility] Last Admin: 05/10/17 08:40 Dose: 1 mg Guaifenesin (Robitussin) 100 mg PO Q6 PRN PRN Reason: Cough Vancomycin HCl 1 gm/ Sodium (Chloride) 250 mls @ 166.667 mls/hr IVPB Q12 [facility] Last Admin: 05/10/17 11:30 Dose: 166.667 mls/hr Meropenem 1 gm/ Sodium (Chloride) 100 mls @ 100 mls/hr IVPB Q8 [facility] Last Admin: 05/10/17 16:00 Dose: 100 mls/hr Multivitamins/Vitamin C (Multi-Delyn Liquid) 5 ml PO DAILY [facility] Last Admin: 05/10/17 08:40 Dose: 5 ml Pantoprazole Sodium (Protonix Susp) 40 mg PO DAILY [facility] Last Admin: 05/10/17 08:40 Dose: 40 mg Quetiapine Fumarate (Seroquel) 25 mg PO HS [facility] Last Admin: 05/03/17 22:55 Dose: Not Given Thiamine HCl (Vitamin B1 Tab) 100 mg PO DAILY [facility] Last Admin: 05/10/17 08:41 Dose: 100 mg Physical Exam - Constitutional Appears: Chronically Ill - Head Exam Head Exam: NORMAL INSPECTION - Eye Exam Eye Exam: PERRL - ENT Exam Additional comments: Intubated - Neck Exam Neck exam: Positive for: Tenderness - Respiratory Exam Respiratory Exam: Decreased Breath Sounds (L hemithorax), Rhonchi, Wheezes, Respiratory Distress - Cardiovascular Exam Cardiovascular Exam: REGULAR RHYTHM - GI/Abdominal Exam GI & Abdominal Exam: Normal Bowel Sounds, Soft - Back Exam Back exam: NORMAL INSPECTION - Neurological Exam Additional comments: L sided weakness, slight slurred speech, L facial droop, able to move R arm and R leg, L arm flaccid, L Leg slight contracted. - Psychiatric Exam Psychiatric exam: Flat Affect - Skin Skin Exam: Normal Color, Warm Results - Vital Signs Recent Vital Signs: Last Vital Signs Temp 100.5 F H 05/10/17 15:55 Pulse 94 H 05/10/17 15:00 Resp 27 H 05/10/17 15:00 BP 146/78 05/10/17 15:00 Pulse Ox 100 05/10/17 15:00 reviewed Trino - Labs Result Diagrams: 05/11/17 04:30 05/11/17 04:30 Labs: Laboratory Results - last 24 hr 05/10/17 05/10/17 05/10/17 04:13 04:20 04:20 WBC 23.7 H RBC 3.48 L Hgb 11.9 L Hct 35.3 MCV 101.4 H MCH 34.3 H MCHC 33.8 RDW 14.4 Plt Count 278 MPV 8.1 Neut % (Auto) 90.0 H Lymph % (Auto) 3.4 L [place] % (Auto) 5.9 Eos % (Auto) 0.2 Baso % (Auto) 0.5 Neut # 21.4 H Lymph # 0.8 L [place] # 1.4 H Eos # 0.1 Baso # 0.1 Neutrophils % (Manual) 87 H Band Neutrophils % 5 H Lymphocytes % (Manual) 4 L Monocytes % (Manual) 4 Platelet Estimate Normal PT 16.4 H INR 1.6 H pCO2 37 pO2 221 H HCO3 28.6 H ABG pH 7.49 H ABG Total CO2 29.3 H ABG O2 Saturation 99.1 H ABG O2 Content 17.5 ABG Base Excess 4.7 H ABG Hemoglobin 12.6 ABG Carboxyhemoglobin 1.0 POC ABG HHb (Measured) 0.9 ABG Methemoglobin 1.9 ABG O2 Capacity 17.7 Carson Test Yes A-a O2 Difference 303.0 Hgb O2 Saturation 96.2 Vent Mode A/c Mechanical Rate 12 FiO2 80.0 Tidal Volume 450 PEEP 5 Sodium Potassium Chloride Carbon Dioxide Anion Gap BUN Creatinine Est GFR ( Amer) Est GFR (Non-Af Amer) Random Glucose Calcium 05/10/17 04:20 WBC RBC Hgb Hct MCV MCH MCHC RDW Plt Count MPV Neut % (Auto) Lymph % (Auto) [place] % (Auto) Eos % (Auto) Baso % (Auto) Neut # Lymph # Gem # Eos # Baso # Neutrophils % (Manual) Band Neutrophils % Lymphocytes % (Manual) Monocytes % (Manual) Platelet Estimate PT INR pCO2 pO2 HCO3 ABG pH ABG Total CO2 ABG O2 Saturation ABG O2 Content ABG Base Excess ABG Hemoglobin ABG Carboxyhemoglobin POC ABG HHb (Measured) ABG Methemoglobin ABG O2 Capacity [place] Test A-a O2 Difference Hgb O2 Saturation Vent Mode Mechanical Rate FiO2 Tidal Volume PEEP Sodium 137 Potassium 3.6 Chloride 104 Carbon Dioxide 24 Anion Gap 12 BUN 14 Creatinine 0.6 L Est GFR ( Amer) > 60 Est GFR (Non-Af Amer) > 60 Random Glucose 150 H Calcium 8.8 reviewed J.P. - EKG Data EKG comments: reviewed J.P. - Imaging and Cardiology Chest x-ray Status: Report reviewed by me (J.P.) CT scan - head Status: Report reviewed by me (J.P.) MRI - head Status: Report reviewed by me (J.P.) Assessment & Plan (1) Acute respiratory failure Status: Acute Priority: High (2) MRSA pneumonia Status: Acute Priority: High (3) Acute right MCA stroke Status: Acute Priority: High - Assessment and Plan (Free Text) Plan: Continue ventilatory support, f/u CT Chest, Vanco, Merren, Duoneb and rest of Tx. ICU time: 60 minutes. - Date & Time Date: 05/10/17 Time: 10:00
[2017-05-11] MEDS: Meropenem 1 GM in Sodium Chloride 0.9% 100 ML IVPB SCH ×3 (00:11→17:00)
[2017-05-11 04:47] LABS: ABG ALLEN TEST YES; ABG MECHANICAL RATE 12; ARTERIAL BLOOD GAS HCO3 28.2 mmol/L (21-28); ARTERIAL BLOOD GAS MODE A/C; ARTERIAL BLOOD GAS O2 CAPACITY 16.6 mL/dL (16-24); ARTERIAL BLOOD GAS O2 CONTENT 16.4 ML/dL (15-23); ARTERIAL BLOOD GAS PH 7.51 (7.35-7.45); ARTERIAL BLOOD GAS PO2 128 mm/Hg (80-100); ARTERIAL BLOOD HGB O2 SAT 96.1 % (95.0-98.0); ATERIAL BLOOD GAS PEEP 5; CARBOXYHEMOGLOBIN 0.8 % (0.5-1.5); HHB 1.2 % (0.0-5.0); METHEMOGLOBIN 1.8 % (0.0-3.0)
[2017-05-11 05:18] LABS: BASO # 0.2 K/uL (0.0-0.2); BASO % 0.9 % (0.0-2.0); EOS # 0.3 K/uL (0.0-0.7); EOS % 1.6 % (0.0-4.0); HEMATOCRIT 34.6 % (35.0-51.0); LYMPH # 0.7 K/uL (1.0-4.3); LYMPH % 4.3 % (20.0-40.0); MEAN CELL VOLUME 101.2 fl (80.0-94.0); MEAN CORPUSCULAR HEMOGLOBIN 33.8 pg (27.0-31.0); MEAN CORPUSCULAR HGB CONC 33.5 g/dL (33.0-37.0); MEAN PLATELET VOLUME 8.5 fl (7.2-11.7); MONO # 1.3 K/uL (0.0-0.8); MONO % 7.6 % (0.0-10.0); NEUT # 14.4 K/uL (1.8-7.0); NEUT % 85.6 % (50.0-75.0); WHITE BLOOD COUNT 16.8 K/uL (4.8-10.8)
[2017-05-11 05:23] LABS: ALB/GLOB RATIO 0.7 (1.0-2.1); ALKALINE PHOSPHATASE 58 U/L (38-126); ALT/SGPT 30 U/L (21-72); AST/SGOT 25 U/L (17-59); BILIRUBIN,TOTAL 0.5 mg/dl (0.2-1.3); BLOOD UREA NITROGEN 11 mg/dl (9-20); CALCIUM 8.8 mg/dL (8.4-10.2); CARBON DIOXIDE 26 mmol/L (22-30); CHLORIDE 105 mmol/L (98-107); GFR AFRICAN-AMERICAN > 60; GLUCOSE,RANDOM 123 mg/dL (75-110); POTASSIUM 3.4 MMOL/L (3.6-5.0); SODIUM 137 mmol/l (132-148)
--- NOTE | 2017-05-11 08:00 | CP.PCM.PN ---
<Kaylene Rodney - Last Filed: 05/11/17 07:57> Subjective - Date & Time of Evaluation Date of Evaluation: 05/11/17 Time of Evaluation: 07:58 - Subjective Subjective: General Surgery - Dr. adams Pt S&E. Tmax 100.5 overnight. Pt remains intubated, on 5 Peep, 60% fio2, with thick purulent secretions in ETT. He is arousable to verbal stimuli. Objective - Vital Signs/Intake and Output Vital Signs (last 24 hours): Temp Pulse Resp BP Pulse Ox 100.5 F H 69 36 H 148/77 100 05/11/17 04:00 05/11/17 06:27 05/11/17 06:27 05/11/17 06:27 05/11/17 06:27 Intake and Output: 05/11/17 05/11/17 06:59 18:59 Intake Total 1600 Output Total 400 Balance 1200 - Medications Medications: Current Medications Acetaminophen (Tylenol 325mg Tab) 650 mg PO Q6 PRN PRN Reason: Pain, Mild (1-3) Last Admin: 05/10/17 15:55 Dose: 650 mg Acetaminophen (Tylenol 650 Mg Supp) 650 mg MT Q6 PRN PRN Reason: Fever >100.4 F Last Admin: 05/11/17 04:50 Dose: 650 mg Albuterol/Ipratropium (Duoneb 3 Mg/0.5 Mg (3 Ml) Ud) 3 ml INH RQID [facility] Last Admin: 05/10/17 19:08 Dose: 3 ml Aspirin (Aspirin Chewable) 81 mg PO DAILY [facility] Last Admin: 05/10/17 08:38 Dose: 81 mg Atorvastatin Calcium (Lipitor) 40 mg PO DAILY [facility] Last Admin: 05/10/17 08:40 Dose: 40 mg Enoxaparin Sodium (Lovenox) 40 mg SC DAILY [facility] PRN Reason: Protocol Last Admin: 05/10/17 08:40 Dose: 40 mg Folic Acid (Folic Acid) 1 mg PO DAILY [facility] Last Admin: 05/10/17 08:40 Dose: 1 mg Guaifenesin (Robitussin) 100 mg PO Q6 PRN PRN Reason: Cough Vancomycin HCl 1 gm/ Sodium (Chloride) 250 mls @ 166.667 mls/hr IVPB Q12 [facility] Last Admin: 05/10/17 20:26 Dose: 166.667 mls/hr Meropenem 1 gm/ Sodium (Chloride) 100 mls @ 100 mls/hr IVPB Q8 [facility] Last Admin: 05/11/17 00:11 Dose: 100 mls/hr Potassium Chloride/Dextrose/Sod Cl (Potassium Chl 40 Meq In D5-1/2ns) 1,000 mls @ 75 mls/hr IV .[id number] [facility] Stop: 05/11/17 17:38 Last Admin: 05/10/17 20:38 Dose: 75 mls/hr Lorazepam (Ativan) 1 mg IVP Q6 PRN PRN Reason: Agitation Last Admin: 05/10/17 22:17 Dose: 1 mg Multivitamins/Vitamin C (Multi-Delyn Liquid) 5 ml PO DAILY [facility] Last Admin: 05/10/17 08:40 Dose: 5 ml Pantoprazole Sodium (Protonix Susp) 40 mg PO DAILY [facility] Last Admin: 05/10/17 08:40 Dose: 40 mg Quetiapine Fumarate (Seroquel) 25 mg PO HS [facility] Last Admin: 05/03/17 22:55 Dose: Not Given Thiamine HCl (Vitamin B1 Tab) 100 mg PO DAILY [facility] Last Admin: 05/10/17 08:41 Dose: 100 mg - Labs Labs: 05/11/17 04:30 05/11/17 04:30 PT 16.4 Seconds (9.8-13.1) H 05/10/17 04:20 INR 1.6 (0.9-1.2) H 05/10/17 04:20 - Constitutional Appears: No Acute Distress - Head Exam Head Exam: ATRAUMATIC, NORMAL INSPECTION, NORMOCEPHALIC - Eye Exam Eye Exam: Normal appearance - Neck Exam Neck Exam: Normal Inspection - Respiratory Exam Additional comments: decreased breath sounds on the left; on vent - Cardiovascular Exam Cardiovascular Exam: Tachycardia (90s), REGULAR RHYTHM - GI/Abdominal Exam GI & Abdominal Exam: Soft. absent: Distended - Extremities Exam Extremities Exam: absent: Pedal Edema - Neurological Exam Neurological Exam: Alert, Awake - Psychiatric Exam Psychiatric exam: Normal Affect, Normal Mood - Skin Skin Exam: Dry, Intact Assessment and Plan - Assessment and Plan (Free Text) Assessment: 56M w/ hx ETOH abuse, s/p CVA w/ MRSA PNA and acute resp. failure req. intubation 05/09 -Surgery consulted for tracheostomy -Will reach out to nephew (POA) to discuss options -Continue care as per ICU team Will DW Dr. India Rodney PGY3 <Jeremy Adams - Last Filed: 05/11/17 10:10> Subjective - Date & Time of Evaluation Time of Evaluation: 09:00 - Subjective Subjective: Patient was seen and examined at the bedside. Agree with resident's note above Objective - Vital Signs/Intake and Output Vital Signs (last 24 hours): Temp Pulse Resp BP Pulse Ox 99.7 F H 77 20 153/85 H 100 05/11/17 08:00 05/11/17 08:00 05/11/17 08:00 05/11/17 08:00 05/11/17 08:00 Intake and Output: 05/11/17 05/11/17 06:59 18:59 Intake Total 1600 350 Output Total 400 Balance 1200 350 - Medications Medications: Current Medications Acetaminophen (Tylenol 325mg Tab) 650 mg PO Q6 PRN PRN Reason: Pain, Mild (1-3) Last Admin: 05/10/17 15:55 Dose: 650 mg Acetaminophen (Tylenol 650 Mg Supp) 650 mg MT Q6 PRN PRN Reason: Fever >100.4 F Last Admin: 05/11/17 04:50 Dose: 650 mg Albuterol/Ipratropium (Duoneb 3 Mg/0.5 Mg (3 Ml) Ud) 3 ml INH RQID [facility] Last Admin: 05/11/17 08:09 Dose: 3 ml Aspirin (Aspirin Chewable) 81 mg PO DAILY [facility] Last Admin: 05/10/17 08:38 Dose: 81 mg Atorvastatin Calcium (Lipitor) 40 mg PO DAILY [facility] Last Admin: 05/10/17 08:40 Dose: 40 mg Enoxaparin Sodium (Lovenox) 40 mg SC DAILY [facility] PRN Reason: Protocol Last Admin: 05/11/17 09:30 Dose: 40 mg Folic Acid (Folic Acid) 1 mg PO DAILY [facility] Last Admin: 05/11/17 09:27 Dose: 1 mg Guaifenesin (Robitussin) 100 mg PO Q6 PRN PRN Reason: Cough Vancomycin HCl 1 gm/ Sodium (Chloride) 250 mls @ 166.667 mls/hr IVPB Q12 [facility] Last Admin: 05/11/17 09:32 Dose: 166.667 mls/hr Meropenem 1 gm/ Sodium (Chloride) 100 mls @ 100 mls/hr IVPB Q8 [facility] Last Admin: 05/11/17 09:30 Dose: 100 mls/hr Potassium Chloride/Dextrose/Sod Cl (Potassium Chl 40 Meq In D5-1/2ns) 1,000 mls @ 75 mls/hr IV .[id number] [facility] Stop: 05/11/17 17:38 Last Admin: 05/10/17 20:38 Dose: 75 mls/hr Lorazepam (Ativan) 1 mg IVP Q6 PRN PRN Reason: Agitation Last Admin: 05/10/17 22:17 Dose: 1 mg Multivitamins/Vitamin C (Multi-Delyn Liquid) 5 ml PO DAILY [facility] Last Admin: 05/11/17 09:31 Dose: 5 ml Pantoprazole Sodium (Protonix Susp) 40 mg PO DAILY [facility] Last Admin: 05/11/17 09:31 Dose: 40 mg Quetiapine Fumarate (Seroquel) 25 mg PO HS [facility] Last Admin: 05/03/17 22:55 Dose: Not Given Thiamine HCl (Vitamin B1 Tab) 100 mg PO DAILY [facility] Last Admin: 05/11/17 09:35 Dose: 100 mg - Labs Labs: 05/11/17 04:30 05/11/17 04:30 PT 16.4 Seconds (9.8-13.1) H 05/10/17 04:20 INR 1.6 (0.9-1.2) H 05/10/17 04:20 Assessment and Plan - Assessment and Plan (Free Text) Plan: - Patient is on FiO2 of 60% on the ventilator, will hold off on the tracheostomy at present time until patient is clinically improved - Continue care as per medical and ICU teams
[2017-05-11] MEDS: Albuterol-Ipratrop 3 mg / 0.5 (3 ml) UD INH SCH ×4 (08:09→19:37)
[2017-05-11] MEDS ORDERED: Potassium Chloride 20 mEq/15 ml LIQ UD NG ONE (08:59)
[2017-05-11] MEDS: Enoxaparin 40 mg Syringe SC SCH (09:30)
[2017-05-11] MEDS: Multiple Vitamins Oral Solution PO SCH (09:31)
[2017-05-11] MEDS: Pantoprazole 40 mg Susp UD PO SCH (09:31)
--- NOTE | 2017-05-11 10:37 | CP.PCM.PN ---
Subjective - Date & Time of Evaluation Date of Evaluation: 05/11/17 Time of Evaluation: 10:00 - Subjective Subjective: Pt is febrile leukocytosis trended sl down to 16 from 23k Remains intubated , on mech vent PRVC/AC 60% FiO2 noted to be moving his right UE and LE Family at bedside - nephew and sister- discussed test results, treatment plan, all questions answered Objective - Vital Signs/Intake and Output Vital Signs (last 24 hours): Temp Pulse Resp BP Pulse Ox 99.7 F H 74 22 151/88 H 100 05/11/17 08:00 05/11/17 10:00 05/11/17 10:00 05/11/17 10:00 05/11/17 10:00 Intake and Output: 05/11/17 05/11/17 06:59 18:59 Intake Total 1600 590 Output Total 400 Balance 1200 590 - Medications Medications: Current Medications Acetaminophen (Tylenol 325mg Tab) 650 mg PO Q6 PRN PRN Reason: Pain, Mild (1-3) Last Admin: 05/10/17 15:55 Dose: 650 mg Acetaminophen (Tylenol 650 Mg Supp) 650 mg [place] Q6 PRN PRN Reason: Fever >100.4 F Last Admin: 05/11/17 04:50 Dose: 650 mg Albuterol/Ipratropium (Duoneb 3 Mg/0.5 Mg (3 Ml) Ud) 3 ml INH RQID [facility] Last Admin: 05/11/17 08:09 Dose: 3 ml Aspirin (Aspirin Chewable) 81 mg PO DAILY [facility] Last Admin: 05/10/17 08:38 Dose: 81 mg Atorvastatin Calcium (Lipitor) 40 mg PO DAILY [facility] Last Admin: 05/10/17 08:40 Dose: 40 mg Enoxaparin Sodium (Lovenox) 40 mg SC DAILY [facility] PRN Reason: Protocol Last Admin: 05/11/17 09:30 Dose: 40 mg Folic Acid (Folic Acid) 1 mg PO DAILY [facility] Last Admin: 05/11/17 09:27 Dose: 1 mg Guaifenesin (Robitussin) 100 mg PO Q6 PRN PRN Reason: Cough Vancomycin HCl 1 gm/ Sodium (Chloride) 250 mls @ 166.667 mls/hr IVPB Q12 [facility] Last Admin: 05/11/17 09:32 Dose: 166.667 mls/hr Meropenem 1 gm/ Sodium (Chloride) 100 mls @ 100 mls/hr IVPB Q8 [facility] Last Admin: 05/11/17 09:30 Dose: 100 mls/hr Potassium Chloride/Dextrose/Sod Cl (Potassium Chl 40 Meq In D5-1/2ns) 1,000 mls @ 75 mls/hr IV .[id number] [facility] Stop: 05/11/17 17:38 Last Admin: 05/10/17 20:38 Dose: 75 mls/hr Lorazepam (Ativan) 1 mg IVP Q6 PRN PRN Reason: Agitation Last Admin: 05/10/17 22:17 Dose: 1 mg Multivitamins/Vitamin C (Multi-Delyn Liquid) 5 ml PO DAILY [facility] Last Admin: 05/11/17 09:31 Dose: 5 ml Pantoprazole Sodium (Protonix Susp) 40 mg PO DAILY [facility] Last Admin: 05/11/17 09:31 Dose: 40 mg Quetiapine Fumarate (Seroquel) 25 mg PO HS [facility] Last Admin: 05/03/17 22:55 Dose: Not Given Thiamine HCl (Vitamin B1 Tab) 100 mg PO DAILY [facility] Last Admin: 05/11/17 09:35 Dose: 100 mg - Labs Labs: 05/11/17 04:30 05/11/17 04:30 PT 16.4 Seconds (9.8-13.1) H 05/10/17 04:20 INR 1.6 (0.9-1.2) H 05/10/17 04:20 - Constitutional Appears: Older Than Stated Age, Chronically Ill, Other (Intubated) - Head Exam Head Exam: NORMOCEPHALIC - Eye Exam Eye Exam: Normal appearance - ENT Exam ENT Exam: Mucous Membranes Dry, Normal External Ear Exam - Neck Exam Neck Exam: absent: Meningismus - Respiratory Exam Respiratory Exam: Rales, Rhonchi Additional comments: [facility] - Cardiovascular Exam Cardiovascular Exam: REGULAR RHYTHM, +S1, +S2 - GI/Abdominal Exam GI & Abdominal Exam: Soft, Normal Bowel Sounds. absent: Tenderness - Extremities Exam Extremities Exam: Normal Capillary Refill. absent: Pedal Edema - Neurological Exam Neuro motor strength exam: Left Upper Extremity: 0, Left Lower Extremity: 0 Additional comments: Intubated opens eyes to tactile stimuli moves RUE and RLE - Skin Skin Exam: Dry, Normal Color, Warm Assessment and Plan - Assessment and Plan (Free Text) Plan: 56 y/o homeless male with PMHx significant for HTN, anemia, and EtOH abuse presented to ER with multiple falls with minor head trauma. He stated that he had been feeling 'off balance' and falling more over the past several days. He denied EtOH associated with these falls. Denied any focal weakness, but felt like both his feet were numb (this is ongoing, not new) and also c/o back pain (also chronic); he also felt off balance more lately as well. CT head in ER showed Multiple bilateral lacunar infarcts and severe cortical atrophy. Patient admitted in telemetry for close monitoring. MRI head showed acute right MCA stroke Patient started on ASa, lovenox and statin. Neurology and PT consulted He developed DT-s and was started on gabapentin 300 mg PO TID , Seroquel and Ativan PRN Patient became more lethargic with dyarthria, dysphagia, left facial droop and left side weakness. Repeat MRI of the head showed Findings compatible with the known recent right basal ganglia infarct. No new areas of infarction seen. No MR evidence of associated hemorrhage. Developed respiratory failure on 05/09 likely due to Aspiration PNA, he was intubated and transferred to ICU. 1. Acute Respiratory failure with Hypoxia sec to Aspiration Pneumonia Pt is intubated PRVC/AC 60% FiO2 with thick yellowish respiratory secretions unable to handle, requiring frequent suctioning Sputum cultures growing MRSA and Serratia Marcescen CXR showed left upper, middle and lower lobe infiltrates WBC trended up to 23K but sl better today at 16k , febrile ID consult with Dr. Fritz - rec IV abx change to Meropenem and to cont IV Vanco keep head of the bed elevated frequent suctioning and aspiration precautions keep NPO since patient has severe dysphagia showed by Modified Barium swallow Started Tube feeding per NGT GI consulted for peg placement - plan for PEG once more stable Pulmonary consult- Dr Garrison Surgery was consulted - Dr Delgado for poss Trach 2. Acute Ischemic stroke lethargic with dysarthria, dysphagia, left facial droop and left side hemiparesis sl more lethargic today than yesterday - Neuro rec rpt CT of head MRI of the head 04/28 : 1. Acute right MCA territory infarction involving the right narayanan radiata and basal ganglia. 2. Severe chronic microangiopathic changes and mild age-related global parenchymal volume loss. Repeat MRI 05/04 showed known recent basal ganglia infarct no acute changes Neurology consult appreciated Continue ASA, statin , start Plavix once rpt CT of head does not show any hemorrhagic conversion CTA neck showed no Blood clot , carotid doppler showed no stenosis Echo showed normal EF and wall motion Keep NPO for now since patient failed swallow eval keep head of the bed elevated . PT consulted . He will need YEHUDA placement for physical therapy Will need PEG placement 3.ETOH withdrawal/ Delirium tremens-- improved but now lethargic due to CVA patient was tachycardic, tremulous, confused with visual hallucinations on admission was initially Started on librium tapering dose , ativan PRN -- discontinued due to sedation discussed with neurology who recommended to start patient on gabapentin and Seroquel HS that were discontinued due to lethargy Continue thiamine, folic acid, MVI, Seizure precautions 4. HTN allow permissive hypertension started enalapril IV PRN for SBP > 150 5.Thrombocytopenia- improved most likely chronic secondary to ETOH abuse 6.Hypokalemia replace and monitor Kcl 20 MEQ per OGT continue KCl in IVF daily DVT PPx SQ Lovenox
--- NOTE | 2017-05-11 11:24 | RAD ---
HISTORY: intubated COMPARISON: No prior. FINDINGS: In situ ETT, tip of which lies approximately 4 cm above gavino. In situ NGT, tip of which lies left mid parasagittal upper abdomen on and could be advanced. LUNGS: Diffuse airspace disease again seen throughout the left lung with suspected left effusion. Suspect minor volume loss left riley thorax Minimal right basilar atelectasis. PLEURA: No significant pleural effusion identified, no pneumothorax apparent. CARDIOVASCULAR: Normal. OSSEOUS STRUCTURES: No significant abnormalities. VISUALIZED UPPER ABDOMEN: Normal. OTHER FINDINGS: None. IMPRESSION: ETT and NGT as above. Diffuse airspace disease again seen throughout the left lung with suspected left effusion. Suspect minor volume loss left riley thorax Minimal right basilar atelectasis.
[2017-05-11] MEDS: Potassium Chl 40 mEq in D5-1/2 1,000 ML IV SCH (12:12)
--- NOTE | 2017-05-11 12:12 | CT ---
PROCEDURE: CT Chest without contrast HISTORY: Respiratory Distress;Pneumonia COMPARISON: None. TECHNIQUE: Contiguous axial images were obtained through the chest without intravenous contrast enhancement. Sagittal and coronal reconstructions were performed. Radiation dose (DLP): 532.68 mGy-cm. This CT exam was performed using one or more of the following dose reduction techniques: Automated exposure control, adjustment of the mA and/or kV according to patient size, and/or use of iterative reconstruction technique. FINDINGS: In situ ETT, the tip of which lies approximately 3.4 cm above gavino. In situ NGT is present the tip of which lies in the left parasagittal of aspect of the gastric lumen. The LUNGS: There is a moderate size left-sided effusion with left lower lobe atelectasis - infiltrate changes which are more confluent and density left lung base. Patchy areas of atelectasis/ infiltrate changes with interstitial infiltrates in the left upper lobe. Right lung is relatively clear. There appears to be some mild volume loss of the left riley thorax and slight shift of the mediastinum from right to left. . MEDIASTINUM: Heart size is within range of normal. No significant pericardial effusion. Ascending thoracic aorta measures approximately 3.5 cm and descending thoracic aorta measures approximately 2.9 cm. Pulmonary trunk measures approximately 3.45 cm. Minimal underlying pulmonary arterial hypertension not excluded. Multiple small to medium-sized mediastinal lymph nodes are present. Evaluation for hilar adenopathy is limited due to the lack of circulating intravenous contrast material. Wake PLEURA: As above. No evidence of pneumothorax BONES: Mild multilevel degenerative spondylosis of the thoracic spine. . UPPER ABDOMEN: Streak and beam hardening artifact arising from the upper extremities which have not been moved from the field of view limit evaluation. The U of visualized upper abdominal structures otherwise appear grossly unremarkable so far as can be seen. OTHER FINDINGS: None. IMPRESSION: Moderate-sized left-sided effusion with left lower lobe atelectasis/infiltrate which are more confluent in the lung base lung base. Additionally, there are patchy atelectasis/infiltrate changes with interstitial infiltrates in the left upper lobe. Minor volume loss left riley thorax. Right lung is relatively clear. ETT and NGT as above. Evaluation of the upper abdominal structures limited due to crossing significant streak and beam hardening artifact arising from the upper extremities which have not been moved from the field of view
--- NOTE | 2017-05-11 13:36 | CP.PCM.PN ---
Subjective - Date & Time of Evaluation Date of Evaluation: 05/11/17 Time of Evaluation: 13:30 - Subjective Subjective: Mr. Norton was seen and examined today at bedside in the ICU. He continues to be alert and following commands; however, he was not following any commands on the left side today and was able to do so yesterday. There were no other acute events overnight. His aspirin was held in anticipation of possible trach. He was supposed to be on Plavix, but this was not noted on the medication list. Objective - Vital Signs/Intake and Output Vital Signs (last 24 hours): Temp Pulse Resp BP Pulse Ox 98.9 F 84 17 175/92 H 100 05/11/17 12:11 05/11/17 12:11 05/11/17 12:11 05/11/17 12:11 05/11/17 12:11 Intake and Output: 05/11/17 05/11/17 06:59 18:59 Intake Total 1600 590 Output Total 400 Balance 1200 590 - Medications Medications: Current Medications Acetaminophen (Tylenol 325mg Tab) 650 mg PO Q6 PRN PRN Reason: Pain, Mild (1-3) Last Admin: 05/10/17 15:55 Dose: 650 mg Acetaminophen (Tylenol 650 Mg Supp) 650 mg ID Q6 PRN PRN Reason: Fever >100.4 F Last Admin: 05/11/17 04:50 Dose: 650 mg Albuterol/Ipratropium (Duoneb 3 Mg/0.5 Mg (3 Ml) Ud) 3 ml INH RQID [facility] Last Admin: 05/11/17 11:40 Dose: 3 ml Aspirin (Aspirin Chewable) 81 mg PO DAILY [facility] Last Admin: 05/10/17 08:38 Dose: 81 mg Atorvastatin Calcium (Lipitor) 40 mg PO DAILY [facility] Last Admin: 05/11/17 12:09 Dose: 40 mg Enoxaparin Sodium (Lovenox) 40 mg SC DAILY [facility] PRN Reason: Protocol Last Admin: 05/11/17 09:30 Dose: 40 mg Folic Acid (Folic Acid) 1 mg PO DAILY [facility] Last Admin: 05/11/17 09:27 Dose: 1 mg Guaifenesin (Robitussin) 100 mg PO Q6 PRN PRN Reason: Cough Vancomycin HCl 1 gm/ Sodium (Chloride) 250 mls @ 166.667 mls/hr IVPB Q12 [facility] Last Admin: 05/11/17 09:32 Dose: 166.667 mls/hr Meropenem 1 gm/ Sodium (Chloride) 100 mls @ 100 mls/hr IVPB Q8 [facility] Last Admin: 05/11/17 09:30 Dose: 100 mls/hr Potassium Chloride/Dextrose/Sod Cl (Potassium Chl 40 Meq In D5-1/2ns) 1,000 mls @ 75 mls/hr IV .[id number] [facility] Stop: 05/11/17 17:38 Last Admin: 05/11/17 12:12 Dose: 75 mls/hr Lorazepam (Ativan) 1 mg IVP Q6 PRN PRN Reason: Agitation Last Admin: 05/10/17 22:17 Dose: 1 mg Multivitamins/Vitamin C (Multi-Delyn Liquid) 5 ml PO DAILY [facility] Last Admin: 05/11/17 09:31 Dose: 5 ml Pantoprazole Sodium (Protonix Susp) 40 mg PO DAILY [facility] Last Admin: 05/11/17 09:31 Dose: 40 mg Quetiapine Fumarate (Seroquel) 25 mg PO HS [facility] Last Admin: 05/03/17 22:55 Dose: Not Given Thiamine HCl (Vitamin B1 Tab) 100 mg PO DAILY [facility] Last Admin: 05/11/17 09:35 Dose: 100 mg - Labs Labs: 05/11/17 04:30 05/11/17 04:30 PT 16.4 Seconds (9.8-13.1) H 05/10/17 04:20 INR 1.6 (0.9-1.2) H 05/10/17 04:20 - Neurological Exam Neurological Exam: Alert, Awake, CN II-XII Intact Neuro motor strength exam: Left Upper Extremity: 0, Right Upper Extremity: 3, Left Lower Extremity: 0, Right Lower Extremity: 3 Additional comments: NIHSS= 10 (intubated) Assessment and Plan (1) Acute ischemic stroke Assessment & Plan: Ischemic stroke with worsening left side weakness. Will repeat CT head to evaluate for possible hemorrhagic conversion or new infarct (considering he has been off of both aspirin and Plavix). If there is no hemorrhagic conversion, then I recommend resuming aspirin 81 mg daily and Plavix 75 mg daily. Continue hydration with NS at 75 ml/hr, DVT Px, PT/OT. Status: Acute
--- NOTE | 2017-05-11 14:46 | CT ---
PROCEDURE: CT HEAD WITHOUT CONTRAST. HISTORY: stroke COMPARISON: May 09 1017, additional images including a CT head without contrast 04/30/2017 study is also available. MRI of the brain without contrast April 27 2017 noted TECHNIQUE: Axial computed tomography images were obtained through the head/brain without intravenous contrast. Radiation dose: Total exam DLP = 1172 mGy-cm. This CT exam was performed using one or more of the following dose reduction techniques: Automated exposure control, adjustment of the mA and/or kV according to patient size, and/or use of iterative reconstruction technique. FINDINGS: HEMORRHAGE: No intracranial hemorrhage. BRAIN: No mass effect or edema appreciated. The previously referenced focal hypodensity at the right basal ganglia/narayanan radiata previously referenced as consistent with subacute infarction is similar in size and overall appearance. No gross mass effect on the right frontal horn is seen. This did demonstrate the restricted diffusion on the after mentioned MR exam. No hemorrhagic conversion is suggested. Conceivably neoplasm with restricted diffusion cannot be entirely excluded. As mentioned, no edema or significant mass effect is noted. Clinical correlation of patient's presentation is also recommended Moderate atrophy and moderate chronic microvascular ischemic changes are renoted. VENTRICLES: Moderate hydrocephalus. Commensurate with the degree of atrophy -similar appearance CALVARIUM: Unremarkable. PARANASAL SINUSES: Unremarkable as visualized. No significant inflammatory changes. MASTOID AIR CELLS: There is some sclerotic changes in the mastoid air cell and concomitant partial calcification consistent with mastoid effusions not the too dissimilar with the prior study. Some of the opacification resembles the small fluid levels in the middle ear cavity locations bilaterally. Concomitant bilateral otitis media is possible. OTHER FINDINGS: None. IMPRESSION: No hemorrhagic conversion regarding the right focal hypodensity in the right basal ganglionic for/coronal radiata location which has been clinically correlated and previously referenced as a subacute infarction here. Continued surveillance recommended, consider follow-up exam with contrast enhancement if possible. Moderate atrophy with moderate chronic similar microvascular ischemic changes as noted above. Chronic sclerotic mastoid changes. Bilateral mastoid effusions. Probable concomitant bilateral otitis media
--- NOTE | 2017-05-11 15:07 | CP.PCM.PN ---
<Roberto,Bri - Last Filed: 05/11/17 15:10> Subjective - Date & Time of Evaluation Date of Evaluation: 05/11/17 Time of Evaluation: 07:45 - Subjective Subjective: GI Fellow PGY4 Progress Note Pt seen and evaluated at bedside, pt intubated on MV. At the time of vaultion pt unable to follow commands but arousable by touch. Pt continues to have left sided weakness greater than right side. Pt does have an OG tube in place and is receiving tube feeds. ROS: Unable to be obtained due to AMS Objective - Vital Signs/Intake and Output Vital Signs (last 24 hours): Temp Pulse Resp BP Pulse Ox 98.9 F 84 17 175/92 H 100 05/11/17 12:11 05/11/17 12:11 05/11/17 12:11 05/11/17 12:11 05/11/17 12:11 Intake and Output: 05/11/17 05/11/17 06:59 18:59 Intake Total 1600 590 Output Total 400 Balance 1200 590 - Medications Medications: Current Medications Acetaminophen (Tylenol 325mg Tab) 650 mg PO Q6 PRN PRN Reason: Pain, Mild (1-3) Last Admin: 05/10/17 15:55 Dose: 650 mg Acetaminophen (Tylenol 650 Mg Supp) 650 mg [place] Q6 PRN PRN Reason: Fever >100.4 F Last Admin: 05/11/17 04:50 Dose: 650 mg Albuterol/Ipratropium (Duoneb 3 Mg/0.5 Mg (3 Ml) Ud) 3 ml INH RQID [facility] Last Admin: 05/11/17 11:40 Dose: 3 ml Aspirin (Aspirin Chewable) 81 mg PO DAILY [facility] Last Admin: 05/10/17 08:38 Dose: 81 mg Atorvastatin Calcium (Lipitor) 40 mg PO DAILY [facility] Last Admin: 05/11/17 12:09 Dose: 40 mg Enoxaparin Sodium (Lovenox) 40 mg SC DAILY [facility] PRN Reason: Protocol Last Admin: 05/11/17 09:30 Dose: 40 mg Folic Acid (Folic Acid) 1 mg PO DAILY [facility] Last Admin: 05/11/17 09:27 Dose: 1 mg Guaifenesin (Robitussin) 100 mg PO Q6 PRN PRN Reason: Cough Vancomycin HCl 1 gm/ Sodium (Chloride) 250 mls @ 166.667 mls/hr IVPB Q12 [facility] Last Admin: 05/11/17 09:32 Dose: 166.667 mls/hr Meropenem 1 gm/ Sodium (Chloride) 100 mls @ 100 mls/hr IVPB Q8 [facility] Last Admin: 05/11/17 09:30 Dose: 100 mls/hr Potassium Chloride/Dextrose/Sod Cl (Potassium Chl 40 Meq In D5-1/2ns) 1,000 mls @ 75 mls/hr IV .[id number] [facility] Stop: 05/11/17 17:38 Last Admin: 05/11/17 12:12 Dose: 75 mls/hr Lorazepam (Ativan) 1 mg IVP Q6 PRN PRN Reason: Agitation Last Admin: 05/10/17 22:17 Dose: 1 mg Multivitamins/Vitamin C (Multi-Delyn Liquid) 5 ml PO DAILY [facility] Last Admin: 05/11/17 09:31 Dose: 5 ml Pantoprazole Sodium (Protonix Susp) 40 mg PO DAILY [facility] Last Admin: 05/11/17 09:31 Dose: 40 mg Quetiapine Fumarate (Seroquel) 25 mg PO HS [facility] Last Admin: 05/03/17 22:55 Dose: Not Given Thiamine HCl (Vitamin B1 Tab) 100 mg PO DAILY [facility] Last Admin: 05/11/17 09:35 Dose: 100 mg - Labs Labs: 05/11/17 04:30 05/11/17 04:30 PT 16.4 Seconds (9.8-13.1) H 05/10/17 04:20 INR 1.6 (0.9-1.2) H 05/10/17 04:20 - Constitutional Appears: Cachectic, Chronically Ill - Head Exam Head Exam: ATRAUMATIC, NORMAL INSPECTION, NORMOCEPHALIC - Eye Exam Eye Exam: Normal appearance Pupil Exam: PERRL Additional comments: facial droop left side - ENT Exam ENT Exam: Mucous Membranes Moist Additional comments: ETT - Neck Exam Neck Exam: Normal Inspection - Respiratory Exam Respiratory Exam: Rales, Rhonchi, Wheezes - Cardiovascular Exam Cardiovascular Exam: Tachycardia, +S1 - GI/Abdominal Exam GI & Abdominal Exam: Soft, Normal Bowel Sounds. absent: Tenderness, Organomegaly - Rectal Exam Rectal Exam: Deferred - Extremities Exam Extremities Exam: Normal Inspection Additional comments: left sided weakness - Neurological Exam Additional comments: intubated - Psychiatric Exam Psychiatric exam: Agitated - Skin Skin Exam: Dry, Intact, Normal Color, Warm Assessment and Plan - Assessment and Plan (Free Text) Assessment: his is a 56yM with a hx of alcohol abuse, HTN, CBP s/p fall and found to have a Acute CVA with left sided weakness, dysarthria and dysphagia. Request for PEG tube placement. 1. Respiratory failure s/p intubation and MV 2. Aspiration PNA 3. Dyphagia with aspiration due to CVA 4. Acute CVA- Right Basal ganglia, narayanan radiata infarct 5. Macrocytic Anemia 6. ETOH abuse/dependence s/p DTs Plan: -Pt will benefit from PEG tube placement once active infection is treated -Continue treatment for aspiration PNA with sputum cx positive for MRSA, abx therapy per ID -Aspiration precautions, seizure precautions -Continue TF through OG tube -Acute CVA, neurology following and recommend aspirin and plavix which pt has not received -Repeat CT Brain negative for hemorrhagic conversion of CVA, would start plavix and aspirin per neurology recommendations -Prefer to hold plavix for 5 days prior to PEG tube placement however if concern about continued embolic events by neurology and recommendation to continue plavix then will place PEG tube with both aspirin and plavix therapy -PEG tube will be placed once medically stable and active infection treated <Olga Tolbert MD - Last Filed: 05/11/17 20:18> Objective - Vital Signs/Intake and Output Vital Signs (last 24 hours): Temp Pulse Resp BP Pulse Ox 98.0 F 85 24 172/92 H 100 05/11/17 16:00 05/11/17 18:00 05/11/17 18:00 05/11/17 18:00 05/11/17 18:00 Intake and Output: 05/11/17 05/12/17 18:59 06:59 Intake Total 2035 Output Total 300 Balance 1735 - Medications Medications: Current Medications Acetaminophen (Tylenol 325mg Tab) 650 mg PO Q6 PRN PRN Reason: Pain, Mild (1-3) Last Admin: 05/10/17 15:55 Dose: 650 mg Acetaminophen (Tylenol 650 Mg Supp) 650 mg [place] Q6 PRN PRN Reason: Fever >100.4 F Last Admin: 05/11/17 04:50 Dose: 650 mg Albuterol/Ipratropium (Duoneb 3 Mg/0.5 Mg (3 Ml) Ud) 3 ml INH RQID [facility] Last Admin: 05/11/17 19:37 Dose: 3 ml Aspirin (Aspirin Chewable) 81 mg PO DAILY [facility] Last Admin: 05/10/17 08:38 Dose: 81 mg Atorvastatin Calcium (Lipitor) 40 mg PO DAILY [facility] Last Admin: 05/11/17 12:09 Dose: 40 mg Clopidogrel Bisulfate (Plavix) 75 mg PO DAILY [facility] Last Admin: 05/11/17 18:27 Dose: 75 mg Enoxaparin Sodium (Lovenox) 40 mg SC DAILY [facility] PRN Reason: Protocol Last Admin: 05/11/17 09:30 Dose: 40 mg Folic Acid (Folic Acid) 1 mg PO DAILY [facility] Last Admin: 05/11/17 09:27 Dose: 1 mg Guaifenesin (Robitussin) 100 mg PO Q6 PRN PRN Reason: Cough Vancomycin HCl 1 gm/ Sodium (Chloride) 250 mls @ 166.667 mls/hr IVPB Q12 [facility] Last Admin: 05/11/17 09:32 Dose: 166.667 mls/hr Meropenem 1 gm/ Sodium (Chloride) 100 mls @ 100 mls/hr IVPB Q8 [facility] Last Admin: 05/11/17 17:00 Dose: 100 mls/hr Potassium Chloride/Dextrose/Sod Cl (Potassium Chl 40 Meq In D5-1/2ns) 1,000 mls @ 75 mls/hr IV .[id number] [facility] Stop: 05/12/17 09:19 Lorazepam (Ativan) 1 mg IVP Q6 PRN PRN Reason: Agitation Last Admin: 05/11/17 17:15 Dose: 1 mg Multivitamins/Vitamin C (Multi-Delyn Liquid) 5 ml PO DAILY [facility] Last Admin: 05/11/17 09:31 Dose: 5 ml Pantoprazole Sodium (Protonix Susp) 40 mg PO DAILY [facility] Last Admin: 05/11/17 09:31 Dose: 40 mg Quetiapine Fumarate (Seroquel) 25 mg PO HS [facility] Last Admin: 05/03/17 22:55 Dose: Not Given Thiamine HCl (Vitamin B1 Tab) 100 mg PO DAILY [facility] Last Admin: 05/11/17 09:35 Dose: 100 mg - Labs Labs: 05/11/17 04:30 05/11/17 04:30 PT 16.4 Seconds (9.8-13.1) H 05/10/17 04:20 INR 1.6 (0.9-1.2) H 05/10/17 04:20 Attending/Attestation - Attestation I have personally seen and examined this patient.: Yes I have fully participated in the care of the patient.: Yes I have reviewed all pertinent clinical information, including history, physical exam and plan: Yes Notes (Text): 05/11/17 20:13 This is a 56 yr old M with a hx of alcohol abuse, HTN, CBP s/p fall and found to have a Acute CVA with left sided weakness, dysarthria and dysphagia. GI consulted for request for PEG tube placement. Hospital course complicated by respiratory failure in setting of aspiration PNA and worsening CVA. Neurology following. Worsening neurological status mandating dual anti platelet therapy with ASA and plavix although patients anti platelet has been held in MICU for unknown reasons. Currently with MRSA + in sputum, with continued leukocytosis on antibiotics. No scheduled date for elective PEG ttill acute infections have not subsided. MICU to continue OG feedings or PPN. Prefer to hold plavix for 3- 5 days prior to PEG but currently as the procedure is not scheduled please continue anti platelet as per neurologist recommendations. Please reconsult once PNA has resolved and leukocytosis is downtrending. Thank you for letting us participate in the care of your patient
--- NOTE | 2017-05-11 15:46 | CP.PCM.PN ---
Subjective - Date & Time of Evaluation Date of Evaluation: 05/11/17 Time of Evaluation: 11:10 - Subjective Subjective: F/U respiratory failure. Pt intubated, minimal response to tactile stimuli. Objective - Vital Signs/Intake and Output Vital Signs (last 24 hours): Temp Pulse Resp BP Pulse Ox 98.9 F 82 12 168/89 H 99 05/11/17 12:11 05/11/17 14:00 05/11/17 14:00 05/11/17 14:00 05/11/17 14:00 Intake and Output: 05/11/17 05/11/17 06:59 18:59 Intake Total 1600 590 Output Total 400 Balance 1200 590 - Medications Medications: Current Medications Acetaminophen (Tylenol 325mg Tab) 650 mg PO Q6 PRN PRN Reason: Pain, Mild (1-3) Last Admin: 05/10/17 15:55 Dose: 650 mg Acetaminophen (Tylenol 650 Mg Supp) 650 mg [place] Q6 PRN PRN Reason: Fever >100.4 F Last Admin: 05/11/17 04:50 Dose: 650 mg Albuterol/Ipratropium (Duoneb 3 Mg/0.5 Mg (3 Ml) Ud) 3 ml INH RQID [facility] Last Admin: 05/11/17 11:40 Dose: 3 ml Aspirin (Aspirin Chewable) 81 mg PO DAILY [facility] Last Admin: 05/10/17 08:38 Dose: 81 mg Atorvastatin Calcium (Lipitor) 40 mg PO DAILY [facility] Last Admin: 05/11/17 12:09 Dose: 40 mg Enoxaparin Sodium (Lovenox) 40 mg SC DAILY [facility] PRN Reason: Protocol Last Admin: 05/11/17 09:30 Dose: 40 mg Folic Acid (Folic Acid) 1 mg PO DAILY [facility] Last Admin: 05/11/17 09:27 Dose: 1 mg Guaifenesin (Robitussin) 100 mg PO Q6 PRN PRN Reason: Cough Vancomycin HCl 1 gm/ Sodium (Chloride) 250 mls @ 166.667 mls/hr IVPB Q12 [facility] Last Admin: 05/11/17 09:32 Dose: 166.667 mls/hr Meropenem 1 gm/ Sodium (Chloride) 100 mls @ 100 mls/hr IVPB Q8 [facility] Last Admin: 05/11/17 09:30 Dose: 100 mls/hr Potassium Chloride/Dextrose/Sod Cl (Potassium Chl 40 Meq In D5-1/2ns) 1,000 mls @ 75 mls/hr IV .[id number] [facility] Stop: 05/11/17 17:38 Last Admin: 05/11/17 12:12 Dose: 75 mls/hr Lorazepam (Ativan) 1 mg IVP Q6 PRN PRN Reason: Agitation Last Admin: 05/10/17 22:17 Dose: 1 mg Multivitamins/Vitamin C (Multi-Delyn Liquid) 5 ml PO DAILY [facility] Last Admin: 05/11/17 09:31 Dose: 5 ml Pantoprazole Sodium (Protonix Susp) 40 mg PO DAILY [facility] Last Admin: 05/11/17 09:31 Dose: 40 mg Quetiapine Fumarate (Seroquel) 25 mg PO HS [facility] Last Admin: 05/03/17 22:55 Dose: Not Given Thiamine HCl (Vitamin B1 Tab) 100 mg PO DAILY [facility] Last Admin: 05/11/17 09:35 Dose: 100 mg - Labs Labs: 05/11/17 04:30 05/11/17 04:30 PT 16.4 Seconds (9.8-13.1) H 05/10/17 04:20 INR 1.6 (0.9-1.2) H 05/10/17 04:20 - Constitutional Appears: Chronically Ill - Head Exam Head Exam: NORMAL INSPECTION - Eye Exam Eye Exam: PERRL - ENT Exam Additional comments: Intubated on MV. - Neck Exam Neck Exam: Normal Inspection - Respiratory Exam Respiratory Exam: Decreased Breath Sounds (Left), Rhonchi (scattered) - Cardiovascular Exam Cardiovascular Exam: REGULAR RHYTHM - GI/Abdominal Exam GI & Abdominal Exam: Soft, Normal Bowel Sounds - Extremities Exam Extremities Exam: absent: Pedal Edema - Back Exam Back Exam: NORMAL INSPECTION - Neurological Exam Neurological Exam: Awake Additional comments: L sided weakness, slightly slurred speech, L facial droop. - Skin Skin Exam: Normal Color, Warm Assessment and Plan (1) Acute respiratory failure Status: Acute (2) MRSA pneumonia Status: Acute (3) Acute right MCA stroke Status: Acute - Assessment and Plan (Free Text) Plan: Continue Ventilatory support, continue Vanco, Merren, Karmen, ICU Time: 40 min.
--- NOTE | 2017-05-11 17:22 | CP.CCUPN ---
CCU Subjective - Physician Review Subjective (Free Text): Intermittently agitated, given Ativan prn for sedation, arousable from sleep and follows simple commands, flaccid on L now. Fever spike over last 24h to 101.3F yesterday. Off Precedex sedation. Still on 60% oxygen, breathing at times up to mid-30s on AC 12, TV 450, Peep5 60% FiO2. Other vitals and I/Os reviewed. ROS: No other pertinent negs or positives on 10+ system review. PMSFH: All Nursing and physician documentation reviewed to date; no new pertinent info noted relevant to current medical problems. MAJOR PROBLEMS: 1. Acute hypoxic resp failure 2 pneumonia - Aspiration 2. Metabolic Encephalopathy 3. CVA-subacute 4. h/o ETOH Abuse PLAN: 1. Decrease fio2 to 50% as tolerated, No other MV weans anticipated at this time. 2. Discussed with PMD, Surgery: no immediate need for urgent or early Trach. 3. Repeat CT Brain today: prelim review shows no acute bleed. Antiplatelet therapy has been on hold- will resume. Neuro f/u reviewed. 4. Thiamine and folic acid supplements. CCU Objective - Physical Exam Head: Positive for: Atraumatic, Normocephalic Pupils: Positive for: PERRL Extroacular Muscles: Positive for: EOMI Conjunctiva: Positive for: Normal Mouth: Positive for: Moist Mucous Membranes Neck: Negative for: JVD, Bruit Respiratory/Chest: Positive for: Decreased Breath Sounds (left), Rhonchi Cardiovascular: Positive for: Regular Rate and Rhythm Abdomen: Positive for: Normal Bowel Sounds. Negative for: Tenderness, Distention Lower Extremity: Positive for: NORMAL PULSES. Negative for: CALF TENDERNESS, Cyanosis Neurological: Positive for: Other (Left hemiplegia) Skin: Positive for: Warm. Negative for: Rashes Psychiatric: Positive for: Alert - Medications Active Medications: Active Medications Generic Name Dose Route Start Last Admin Trade Name Freq PRN Reason Stop Dose Admin Acetaminophen 650 mg 04/27/17 03:51 05/10/17 15:55 Tylenol 325mg Tab PO 650 mg Q6 PRN Administration Pain, Mild (1-3) Acetaminophen 650 mg 05/09/17 12:30 05/11/17 04:50 Tylenol 650 Mg Supp CO 650 mg Q6 PRN Administration Fever >100.4 F Albuterol/Ipratropium 3 ml 05/04/17 20:00 05/11/17 16:07 Duoneb 3 Mg/0.5 Mg (3 Ml) Ud INH 3 ml RQID [facility] Administration Aspirin 81 mg 04/27/17 09:00 05/10/17 08:38 Aspirin Chewable PO 81 mg DAILY [facility] Administration Atorvastatin Calcium 40 mg 04/27/17 09:00 05/11/17 12:09 Lipitor PO 40 mg DAILY [facility] Administration Enoxaparin Sodium 40 mg 04/27/17 09:00 05/11/17 09:30 Lovenox SC 40 mg DAILY [facility] Administration Protocol Folic Acid 1 mg 04/27/17 15:15 05/11/17 09:27 Folic Acid PO 1 mg DAILY [facility] Administration Guaifenesin 100 mg 05/09/17 15:26 Robitussin PO Q6 PRN Cough Vancomycin HCl 1 gm/ Sodium 250 mls @ 166.667 mls/hr 05/04/17 21:00 05/11/17 09:32 Chloride IVPB 166.667 mls/hr Q12 [facility] Administration Meropenem 1 gm/ Sodium 100 mls @ 100 mls/hr 05/10/17 17:00 05/11/17 17:00 Chloride IVPB 100 mls/hr Q8 [facility] Administration Potassium Chloride/Dextrose/Sod Cl 1,000 mls @ 75 mls/hr 05/10/17 17:45 05/11 12:12 Potassium Chl 40 Meq In D5-1/2ns IV 05/11/17 17:38 75 mls/hr .[id number] [facility] Administration Lorazepam 1 mg 05/10/17 21:57 05/10/17 22:17 Ativan IVP 1 mg Q6 PRN Administration Agitation Multivitamins/Vitamin C 5 ml 04/27/17 15:15 05/11/17 09:31 Multi-Delyn Liquid PO 5 ml DAILY [facility] Administration Pantoprazole Sodium 40 mg 05/10/17 09:00 05/11/17 09:31 Protonix Susp PO 40 mg DAILY [facility] Administration Quetiapine Fumarate 25 mg 04/28/17 22:00 05/03/17 22:55 Seroquel PO Not Given HS [facility] Thiamine HCl 100 mg 04/27/17 15:15 05/11/17 09:35 Vitamin B1 Tab PO 100 mg DAILY [facility] Administration - Patient Studies Lab Studies: Microbiology Studies 05/09/17 13:10 Blood Culture - Preliminary Blood NO GROWTH AFTER 48 HOURS 05/09/17 10:00 Urine Culture - Final Urine,Adame No Growth (<1,000 CFU/ML) Lab Studies 05/11/17 05/11/17 05/11/17 Range/Units 11:10 04:41 04:30 WBC (4.8-10.8) K/uL RBC (4.40-5.90) Mil/uL Hgb (12.0-18.0) g/dL Hct (35.0-51.0) % MCV (80.0-94.0) fl MCH (27.0-31.0) pg MCHC (33.0-37.0) g/dL RDW (11.5-14.5) % Plt Count (130-400) K/uL MPV (7.2-11.7) fl Neut % (Auto) (50.0-75.0) % Lymph % (Auto) (20.0-40.0) % Meagher % (Auto) (0.0-10.0) % Eos % (Auto) (0.0-4.0) % Baso % (Auto) (0.0-2.0) % Neut # (1.8-7.0) K/uL Lymph # (1.0-4.3) K/uL Meagher # (0.0-0.8) K/uL Eos # (0.0-0.7) K/uL Baso # (0.0-0.2) K/uL pCO2 34 L (35-45) mm/Hg pO2 128 H (80-100) mm/Hg HCO3 28.2 H (21-28) mmol/L ABG pH 7.51 H (7.35-7.45) ABG Total CO2 28.1 H (22-28) mmol/L ABG O2 Saturation 98.8 H (95-98) % ABG O2 Content 16.4 (15-23) ML/dL ABG Base Excess 4.2 H (-2.0-3.0) mmol/L ABG Hemoglobin 12.0 (11.7-17.4) g/dL ABG Carboxyhemoglobin 0.8 (0.5-1.5) % POC ABG HHb (Measured) 1.2 (0.0-5.0) % ABG Methemoglobin 1.8 (0.0-3.0) % ABG O2 Capacity 16.6 (16-24) mL/dL Carson Test Yes A-a O2 Difference 257.0 mm/Hg Hgb O2 Saturation 96.1 (95.0-98.0) % Vent Mode A/c Mechanical Rate 12 FiO2 60.0 % Tidal Volume 450 PEEP 5 Sodium 137 (132-148) mmol/l Potassium 3.4 L (3.6-5.0) MMOL/L Chloride 105 (98-107) mmol/L Carbon Dioxide 26 (22-30) mmol/L Anion Gap 9 L (10-20) BUN 11 (9-20) mg/dl Creatinine 0.4 L (0.8-1.5) mg/dL Est GFR ( Amer) > 60 Est GFR (Non-Af Amer) > 60 POC Glucose (mg/dL) 91 (65-110) mg/dL Random Glucose 123 H (75-110) mg/dL Calcium 8.8 (8.4-10.2) mg/dL Total Bilirubin 0.5 (0.2-1.3) mg/dl AST 25 (17-59) U/L ALT 30 (21-72) U/L Alkaline Phosphatase 58 (38-126) U/L Total Protein 6.0 L (6.3-8.2) G/DL Albumin 2.5 L (3.5-5.0) g/dL Globulin 3.5 (2.2-3.9) gm/dL Albumin/Globulin Ratio 0.7 L (1.0-2.1) Vancomycin Trough (5.0-10.0) ug/mL 05/11/17 05/10/17 05/10/17 Range/Units 04:30 21:33 19:50 WBC 16.8 H (4.8-10.8) K/uL RBC 3.42 L (4.40-5.90) Mil/uL Hgb 11.6 L (12.0-18.0) g/dL Hct 34.6 L (35.0-51.0) % MCV 101.2 H (80.0-94.0) fl MCH 33.8 H (27.0-31.0) pg MCHC 33.5 (33.0-37.0) g/dL RDW 14.0 (11.5-14.5) % Plt Count 285 (130-400) K/uL MPV 8.5 (7.2-11.7) fl Neut % (Auto) 85.6 H (50.0-75.0) % Lymph % (Auto) 4.3 L (20.0-40.0) % Meagher % (Auto) 7.6 (0.0-10.0) % Eos % (Auto) 1.6 (0.0-4.0) % Baso % (Auto) 0.9 (0.0-2.0) % Neut # 14.4 H (1.8-7.0) K/uL Lymph # 0.7 L (1.0-4.3) K/uL Meagher # 1.3 H (0.0-0.8) K/uL Eos # 0.3 (0.0-0.7) K/uL Baso # 0.2 (0.0-0.2) K/uL pCO2 (35-45) mm/Hg pO2 (80-100) mm/Hg HCO3 (21-28) mmol/L ABG pH (7.35-7.45) ABG Total CO2 (22-28) mmol/L ABG O2 Saturation (95-98) % ABG O2 Content (15-23) ML/dL ABG Base Excess (-2.0-3.0) mmol/L ABG Hemoglobin (11.7-17.4) g/dL ABG Carboxyhemoglobin (0.5-1.5) % POC ABG HHb (Measured) (0.0-5.0) % ABG Methemoglobin (0.0-3.0) % ABG O2 Capacity (16-24) mL/dL Carson Test A-a O2 Difference mm/Hg Hgb O2 Saturation (95.0-98.0) % Vent Mode Mechanical Rate FiO2 % Tidal Volume PEEP Sodium (132-148) mmol/l Potassium (3.6-5.0) MMOL/L Chloride (98-107) mmol/L Carbon Dioxide (22-30) mmol/L Anion Gap (10-20) BUN (9-20) mg/dl Creatinine (0.8-1.5) mg/dL Est GFR ( Amer) Est GFR (Non-Af Amer) POC Glucose (mg/dL) 119 H (65-110) mg/dL Random Glucose (75-110) mg/dL Calcium (8.4-10.2) mg/dL Total Bilirubin (0.2-1.3) mg/dl AST (17-59) U/L ALT (21-72) U/L Alkaline Phosphatase (38-126) U/L Total Protein (6.3-8.2) G/DL Albumin (3.5-5.0) g/dL Globulin (2.2-3.9) gm/dL Albumin/Globulin Ratio (1.0-2.1) Vancomycin Trough 8.4 (5.0-10.0) ug/mL Laboratory Results - last 24 hr 05/10/17 05/10/17 05/11/17 19:50 21:33 04:30 WBC 16.8 H RBC 3.42 L Hgb 11.6 L Hct 34.6 L MCV 101.2 H MCH 33.8 H MCHC 33.5 RDW 14.0 Plt Count 285 MPV 8.5 Neut % (Auto) 85.6 H Lymph % (Auto) 4.3 L Meagher % (Auto) 7.6 Eos % (Auto) 1.6 Baso % (Auto) 0.9 Neut # 14.4 H Lymph # 0.7 L Meagher # 1.3 H Eos # 0.3 Baso # 0.2 pCO2 pO2 HCO3 ABG pH ABG Total CO2 ABG O2 Saturation ABG O2 Content ABG Base Excess ABG Hemoglobin ABG Carboxyhemoglobin POC ABG HHb (Measured) ABG Methemoglobin ABG O2 Capacity Carson Test A-a O2 Difference Hgb O2 Saturation Vent Mode Mechanical Rate FiO2 Tidal Volume PEEP Sodium Potassium Chloride Carbon Dioxide Anion Gap BUN Creatinine Est GFR ( Amer) Est GFR (Non-Af Amer) POC Glucose (mg/dL) 119 H Random Glucose Calcium Total Bilirubin AST ALT Alkaline Phosphatase Total Protein Albumin Globulin Albumin/Globulin Ratio Vancomycin Trough 8.4 05/11/17 05/11/17 05/11/17 04:30 04:41 11:10 WBC RBC Hgb Hct MCV MCH MCHC RDW Plt Count MPV Neut % (Auto) Lymph % (Auto) Meagher % (Auto) Eos % (Auto) Baso % (Auto) Neut # Lymph # Meagher # Eos # Baso # pCO2 34 L pO2 128 H HCO3 28.2 H ABG pH 7.51 H ABG Total CO2 28.1 H ABG O2 Saturation 98.8 H ABG O2 Content 16.4 ABG Base Excess 4.2 H ABG Hemoglobin 12.0 ABG Carboxyhemoglobin 0.8 POC ABG HHb (Measured) 1.2 ABG Methemoglobin 1.8 ABG O2 Capacity 16.6 Carson Test Yes A-a O2 Difference 257.0 Hgb O2 Saturation 96.1 Vent Mode A/c Mechanical Rate 12 FiO2 60.0 Tidal Volume 450 PEEP 5 Sodium 137 Potassium 3.4 L Chloride 105 Carbon Dioxide 26 Anion Gap 9 L BUN 11 Creatinine 0.4 L Est GFR ( Amer) > 60 Est GFR (Non-Af Amer) > 60 POC Glucose (mg/dL) 91 Random Glucose 123 H Calcium 8.8 Total Bilirubin 0.5 AST 25 ALT 30 Alkaline Phosphatase 58 Total Protein 6.0 L Albumin 2.5 L Globulin 3.5 Albumin/Globulin Ratio 0.7 L Vancomycin Trough Radiology Interpretations (Free Text): ( my interp)- ETT position OK above gavino. Marked volume loss Left lung, with diffuse interstitial changes. Review of Systems - Review of Systems Systems not reviewed;Unavailable: Intubated Critical Care Progress Note - Ventilator Checklist Head of Bed 30 Degrees: Yes Daily Sedation Vacation: Yes Daily Assessment of Readiness to Wean: Yes Daily Spontaneous Breathing Trial: Yes PUD Prophalyxis: Yes DVT Prophylaxis: Yes Oral Care with Chlorhexidine Gluconate {CHG}: Yes - Vent Settings MODE:: ASSIST CONTROL TIDAL VOLUME:: 450 RESP RATE:: 12 FIO2:: 60 PEEP:: 5 - Extremities/Vascular Does the Patient have a Adame Catheter?: Yes Does the Patient need a Adame Catheter?: Yes Catheter Insertion Criteria: Need for accurate measurement of output in critically ill patient - Restraints Justification for Restraints: High risk for self extubation, High risk for removing IV access, High risk for harming self - Prophylaxis GI Prophylaxis GI: PPI - Prophylaxis DVT Prophylaxis DVT: Lovenox - Nutrition Nutrition: Nutrition Category Date Time Status NPO Diet [DIET] Diets 05/04/17 Lunch Active
[2017-05-11] MEDS ORDERED: Potassium Chl 40 mEq in D5-1/2 1,000 ML IV SCH (20:00)
[2017-05-12] MEDS: Meropenem 1 GM in Sodium Chloride 0.9% 100 ML IVPB SCH ×3 (00:32→16:36)
[2017-05-12 04:42] LABS: ABG ALLEN TEST YES; ABG MECHANICAL RATE 12; ARTERIAL BLOOD GAS HCO3 28.2 mmol/L (21-28); ARTERIAL BLOOD GAS MODE A/C; ARTERIAL BLOOD GAS O2 CAPACITY 16.5 mL/dL (16-24); ARTERIAL BLOOD GAS O2 CONTENT 16.3 ML/dL (15-23); ARTERIAL BLOOD GAS PH 7.51 (7.35-7.45); ARTERIAL BLOOD GAS PO2 121 mm/Hg (80-100); ARTERIAL BLOOD HGB O2 SAT 96.2 % (95.0-98.0); ATERIAL BLOOD GAS PEEP 5; CARBOXYHEMOGLOBIN 1.1 % (0.5-1.5); METHEMOGLOBIN 1.7 % (0.0-3.0)
--- NOTE | 2017-05-12 06:55 | CP.CCUPN ---
CCU Subjective - Physician Review Subjective (Free Text): Awake and follows commands, MAR reviewed-- last dose of Ativan yesterday afternoon, has not recd Seroquel and has been off Precedex x 24H, getting Plavix, has not recd ASA yesterday. Left side remains flaccid. Temps remain low grade, 99- mid 100sF. Less tachypneic on current MV settings; AC 12, TV 450, 50% and % PEEP, tolerated fio2 reduction to 45%. Other vitals and I/Os reviewed. ROS: No other pertinent negs or positives on 10+ system review. PMSFH: All Nursing and physician documentation reviewed to date; no new pertinent info noted relevant to current medical problems. MAJOR PROBLEMS: 1. Acute Hypoxic Resp failure 2 pneumonia - Aspiration 2. Metabolic Encephalopathy 3. CVA-subacute 4. h/o ETOH Abuse PLAN: 1. Decrease fio2 to 45-40% as tolerated, try SBTs / MV weans. CXR show slight improvement. 2. Discussed with PMD, Surgery: no immediate need for urgent or early Trach. 3. Repeat CT Brain shows no acute bleed. Antiplatelet therapy has been on hold - will resume both and Plavix. Neuro f/u reviewed. 4. Thiamine and folic acid supplements. 5. Now MRSA and Serratia marcesens organisms isolated form sputum, remains yellow in color. On Nilson and Vanco. CCU Objective - Vital Signs / Intake & Output Vital Signs (Last 4 hours): Vital Signs Temp Pulse Resp BP Pulse Ox 05/12/17 06:00 74 22 175/91 H 100 05/12/17 04:00 100.8 F H 79 26 H 161/89 H 100 Intake and Output (Last 8hrs): Intake & Output 05/11/17 05/11/17 05/12/17 14:59 22:59 06:59 Intake Total 590 2155 1020 Output Total 300 450 Balance 590 1855 570 Intake: IV 1200 600 Intake, Piggyback 350 350 100 Oral 160 Tube Feeding 240 505 160 Free Water Flush 100 Output: Urine 300 450 Urethral (Adame) 300 450 Other: # Bowel Movements 1 1 - Physical Exam Head: Positive for: Atraumatic, Normocephalic Pupils: Positive for: PERRL Extroacular Muscles: Positive for: EOMI Conjunctiva: Positive for: Normal Mouth: Positive for: Moist Mucous Membranes Neck: Negative for: JVD, Bruit Respiratory/Chest: Positive for: Decreased Breath Sounds (left), Rhonchi Cardiovascular: Positive for: Regular Rate and Rhythm Abdomen: Positive for: Normal Bowel Sounds. Negative for: Tenderness, Distention Lower Extremity: Positive for: NORMAL PULSES. Negative for: CALF TENDERNESS, Cyanosis Neurological: Positive for: Other (Left hemiplegia) Skin: Positive for: Warm. Negative for: Rashes Psychiatric: Positive for: Alert - Medications Active Medications: Active Medications Generic Name Dose Route Start Last Admin Trade Name Freq PRN Reason Stop Dose Admin Acetaminophen 650 mg 04/27/17 03:51 05/10/17 15:55 Tylenol 325mg Tab PO 650 mg Q6 PRN Administration Pain, Mild (1-3) Acetaminophen 650 mg 05/09/17 12:30 05/11/17 04:50 Tylenol 650 Mg Supp VA 650 mg Q6 PRN Administration Fever >100.4 F Albuterol/Ipratropium 3 ml 05/04/17 20:00 05/11/17 19:37 Duoneb 3 Mg/0.5 Mg (3 Ml) Ud INH 3 ml RQID STEPHANI Administration Aspirin 81 mg 04/27/17 09:00 05/10/17 08:38 Aspirin Chewable PO 81 mg DAILY STEPHANI Administration Atorvastatin Calcium 40 mg 04/27/17 09:00 05/11/17 12:09 Lipitor PO 40 mg DAILY STEPHANI Administration Clopidogrel Bisulfate 75 mg 05/11/17 17:18 05/11/17 18:27 Plavix PO 75 mg DAILY STEPHANI Administration Enoxaparin Sodium 40 mg 04/27/17 09:00 05/11/17 09:30 Lovenox SC 40 mg DAILY STEPHANI Administration Protocol Folic Acid 1 mg 04/27/17 15:15 05/11/17 09:27 Folic Acid PO 1 mg DAILY STEPHANI Administration Guaifenesin 100 mg 05/09/17 15:26 Robitussin PO Q6 PRN Cough Vancomycin HCl 1 gm/ Sodium 250 mls @ 166.667 mls/hr 05/04/17 21:00 05/11/17 20:51 Chloride IVPB 166.667 mls/hr Q12 STEPHANI Administration Meropenem 1 gm/ Sodium 100 mls @ 100 mls/hr 05/10/17 17:00 05/12/17 00:32 Chloride IVPB 100 mls/hr Q8 STEPHANI Administration Potassium Chloride/Dextrose/Sod Cl 1,000 mls @ 75 mls/hr 05/11/17 20:00 05/11 20:50 Potassium Chl 40 Meq In D5-1/2ns IV 05/12/17 09:19 75 mls/hr .[id number] STEPHANI Administration Lorazepam 1 mg 05/10/17 21:57 05/11/17 17:15 Ativan IVP 1 mg Q6 PRN Administration Agitation Multivitamins/Vitamin C 5 ml 04/27/17 15:15 05/11/17 09:31 Multi-Delyn Liquid PO 5 ml DAILY STEPHANI Administration Pantoprazole Sodium 40 mg 05/10/17 09:00 05/11/17 09:31 Protonix Susp PO 40 mg DAILY STEPHANI Administration Quetiapine Fumarate 25 mg 04/28/17 22:00 05/03/17 22:55 Seroquel PO Not Given HS STEPHANI Thiamine HCl 100 mg 04/27/17 15:15 05/11/17 09:35 Vitamin B1 Tab PO 100 mg DAILY STEPHANI Administration - Patient Studies Lab Studies: Microbiology Studies 05/09/17 10:00 MRSA Culture (Admit) - Final Naris 05/09/17 13:10 Blood Culture - Preliminary Blood NO GROWTH AFTER 48 HOURS 05/09/17 10:00 Urine Culture - Final Urine,Adame No Growth (<1,000 CFU/ML) Lab Studies 05/12/17 05/11/17 Range/Units 04:28 11:10 pCO2 34 L (35-45) mm/Hg pO2 121 H (80-100) mm/Hg HCO3 28.2 H (21-28) mmol/L ABG pH 7.51 H (7.35-7.45) ABG Total CO2 28.1 H (22-28) mmol/L ABG O2 Saturation 99.0 H (95-98) % ABG O2 Content 16.3 (15-23) ML/dL ABG Base Excess 4.2 H (-2.0-3.0) mmol/L ABG Hemoglobin 11.9 (11.7-17.4) g/dL ABG Carboxyhemoglobin 1.1 (0.5-1.5) % POC ABG HHb (Measured) 1.0 (0.0-5.0) % ABG Methemoglobin 1.7 (0.0-3.0) % ABG O2 Capacity 16.5 (16-24) mL/dL Carson Test Yes A-a O2 Difference 193.0 mm/Hg Hgb O2 Saturation 96.2 (95.0-98.0) % Vent Mode A/c Mechanical Rate 12 FiO2 50.0 % Tidal Volume 450 PEEP 5 POC Glucose (mg/dL) 91 (65-110) mg/dL Laboratory Results - last 24 hr 05/11/17 05/12/17 11:10 04:28 pCO2 34 L pO2 121 H HCO3 28.2 H ABG pH 7.51 H ABG Total CO2 28.1 H ABG O2 Saturation 99.0 H ABG O2 Content 16.3 ABG Base Excess 4.2 H ABG Hemoglobin 11.9 ABG Carboxyhemoglobin 1.1 POC ABG HHb (Measured) 1.0 ABG Methemoglobin 1.7 ABG O2 Capacity 16.5 Carson Test Yes A-a O2 Difference 193.0 Hgb O2 Saturation 96.2 Vent Mode A/c Mechanical Rate 12 FiO2 50.0 Tidal Volume 450 PEEP 5 POC Glucose (mg/dL) 91 Review of Systems - Review of Systems All systems: reviewed and no additional remarkable complaints except (as above) Critical Care Progress Note - Ventilator Checklist Head of Bed 30 Degrees: Yes Daily Sedation Vacation: Yes Daily Assessment of Readiness to Wean: Yes Daily Spontaneous Breathing Trial: Yes PUD Prophalyxis: Yes DVT Prophylaxis: Yes Oral Care with Chlorhexidine Gluconate {CHG}: Yes - Vent Settings MODE:: ASSIST CONTROL TIDAL VOLUME:: 12 RESP RATE:: 21 FIO2:: 50 PEEP:: 5 - Extremities/Vascular Does the Patient have a Central Venous Catheter?: No Does the Patient need a Central Venous Catheter?: No Does the Patient have a Adame Catheter?: Yes Does the Patient need a Adame Catheter?: Yes Catheter Insertion Criteria: Need for accurate measurement of output in critically ill patient - Restraints Justification for Restraints: High risk for self extubation, High risk for removing IV access, High risk for harming self - Prophylaxis GI Prophylaxis GI: PPI - Prophylaxis DVT Prophylaxis DVT: Lovenox - Nutrition Nutrition: Nutrition Category Date Time Status NPO Diet [DIET] Diets 05/04/17 Lunch Active
[2017-05-12 06:58] LABS: BASO # 0.1 K/uL (0.0-0.2); BASO % 0.5 % (0.0-2.0); EOS # 0.2 K/uL (0.0-0.7); EOS % 1.9 % (0.0-4.0); LYMPH # 0.9 K/uL (1.0-4.3); LYMPH % 6.9 % (20.0-40.0); MEAN CELL VOLUME 100.4 fl (80.0-94.0); MEAN CORPUSCULAR HGB CONC 33.9 g/dL (33.0-37.0); MEAN PLATELET VOLUME 8.4 fl (7.2-11.7); MONO # 1.2 K/uL (0.0-0.8); MONO % 9.7 % (0.0-10.0); NEUT # 10.1 K/uL (1.8-7.0); RED CELL DISTRIBUTION WIDTH 14.1 % (11.5-14.5); WHITE BLOOD COUNT 12.4 K/uL (4.8-10.8)
[2017-05-12 07:20] LABS: BLOOD UREA NITROGEN 10 mg/dl (9-20); CALCIUM 8.8 mg/dL (8.4-10.2); CARBON DIOXIDE 26 mmol/L (22-30); CHLORIDE 105 mmol/L (98-107); GFR AFRICAN-AMERICAN > 60; GLUCOSE,RANDOM 110 mg/dL (75-110); MAGNESIUM 1.7 MG/DL (1.6-2.3); POTASSIUM 3.5 MMOL/L (3.6-5.0); SODIUM 138 mmol/l (132-148)
[2017-05-12] MEDS: Albuterol-Ipratrop 3 mg / 0.5 (3 ml) UD INH SCH ×4 (07:23→19:24)
--- NOTE | 2017-05-12 07:34 | CP.PCM.PN ---
Subjective - Date & Time of Evaluation Date of Evaluation: 05/12/17 Time of Evaluation: 07:30 - Subjective Subjective: Patient seen and examined bedside in ICU. Intubated on MV 12/450/5/FIO2 50% with ABG 34/121/28/7.5,not sedated , awake, responding to verbal commands, following simple orders.Able to squeeze physician's hand with left hand, unable to move LLE No acute issues overnight. With thick mucoid respiratory secretions Tmax 100.8 BP 175/91 HR 754 I/O 3765/750, Adame in place with dark urine output WBC 12 K Hgb 11.5 Plt 311 K CXR showing slight improvement of left lung infiltrate OGT in place with jevity @ 40 cc/hr Objective - Vital Signs/Intake and Output Vital Signs (last 24 hours): Temp Pulse Resp BP Pulse Ox 100.8 F H 74 22 175/91 H 100 05/12/17 04:00 05/12/17 06:00 05/12/17 06:00 05/12/17 06:00 05/12/17 06:00 Intake and Output: 05/12/17 05/12/17 06:59 18:59 Intake Total 1730 Output Total 450 Balance 1280 - Medications Medications: Current Medications Acetaminophen (Tylenol 325mg Tab) 650 mg PO Q6 PRN PRN Reason: Pain, Mild (1-3) Last Admin: 05/10/17 15:55 Dose: 650 mg Acetaminophen (Tylenol 650 Mg Supp) 650 mg DC Q6 PRN PRN Reason: Fever >100.4 F Last Admin: 05/11/17 04:50 Dose: 650 mg Albuterol/Ipratropium (Duoneb 3 Mg/0.5 Mg (3 Ml) Ud) 3 ml INH RQID REPLACED BY [facility] Last Admin: 05/12/17 07:23 Dose: 3 ml Aspirin (Aspirin Chewable) 81 mg PO DAILY [facility] BY [facility] Last Admin: 05/10/17 08:38 Dose: 81 mg Atorvastatin Calcium (Lipitor) 40 mg PO DAILY [facility] Last Admin: 05/11/17 12:09 Dose: 40 mg Clopidogrel Bisulfate (Plavix) 75 mg PO DAILY [facility] Last Admin: 05/11/17 18:27 Dose: 75 mg Enoxaparin Sodium (Lovenox) 40 mg SC DAILY [facility]PL[facility] BY [facility] PRN Reason: Protocol Last Admin: 05/11/17 09:30 Dose: 40 mg Folic Acid (Folic Acid) 1 mg PO DAILY [facility] BY [facility] Last Admin: 05/11/17 09:27 Dose: 1 mg Guaifenesin (Robitussin) 100 mg PO Q6 PRN PRN Reason: Cough Vancomycin HCl 1 gm/ Sodium (Chloride) 250 mls @ 166.667 mls/hr IVPB Q12 REPLACED BY [facility] Last Admin: 05/11/17 20:51 Dose: 166.667 mls/hr Meropenem 1 gm/ Sodium (Chloride) 100 mls @ 100 mls/hr IVPB Q8 REPLACED BY [facility] Last Admin: 05/12/17 00:32 Dose: 100 mls/hr Potassium Chloride/Dextrose/Sod Cl (Potassium Chl 40 Meq In D5-1/2ns) 1,000 mls @ 75 mls/hr IV .[id number] REPLACED BY [facility] Stop: 05/12/17 09:19 Last Admin: 05/11/17 20:50 Dose: 75 mls/hr Lorazepam (Ativan) 1 mg IVP Q6 PRN PRN Reason: Agitation Last Admin: 05/11/17 17:15 Dose: 1 mg Multivitamins/Vitamin C (Multi-Delyn Liquid) 5 ml PO DAILY [facility]PLACED BY [facility] Last Admin: 05/11/17 09:31 Dose: 5 ml Pantoprazole Sodium (Protonix Susp) 40 mg PO DAILY [facility]PLACED BY [facility] Last Admin: 05/11/17 09:31 Dose: 40 mg Quetiapine Fumarate (Seroquel) 25 mg PO HS REPLACED BY [facility] Last Admin: 05/03/17 22:55 Dose: Not Given Thiamine HCl (Vitamin B1 Tab) 100 mg PO DAILY REPLACED BY [facility] Last Admin: 05/11/17 09:35 Dose: 100 mg - Labs Labs: 05/12/17 05:00 05/12/17 05:00 PT 16.4 Seconds (9.8-13.1) H 05/10/17 04:20 INR 1.6 (0.9-1.2) H 05/10/17 04:20 - Constitutional Appears: Other (intubated on MV , not sedated . responding to verbal commands) - Head Exam Head Exam: ATRAUMATIC, NORMOCEPHALIC - Eye Exam Eye Exam: EOMI, PERRL Pupil Exam: NORMAL ACCOMODATION - ENT Exam ENT Exam: Mucous Membranes Dry - Neck Exam Neck Exam: Normal Inspection - Respiratory Exam Respiratory Exam: absent: Wheezes Additional comments: coarse breath sounds bilaterally - Cardiovascular Exam Cardiovascular Exam: REGULAR RHYTHM, RRR, +S1, +S2. absent: JVD - GI/Abdominal Exam GI & Abdominal Exam: Soft, Normal Bowel Sounds. absent: Distended, Tenderness, Rebound - Rectal Exam Rectal Exam: Deferred - Extremities Exam Extremities Exam: Normal Capillary Refill, Normal Inspection. absent: Pedal Edema - Neurological Exam Neurological Exam: Alert, Awake Additional comments: intubated following simple commands moves right side of his body able to move left hand no movement to LLE - Skin Skin Exam: Dry, Normal Color, Warm Assessment and Plan - Assessment and Plan (Free Text) Plan: 56 y/o homeless male with PMHx significant for HTN, anemia, and EtOH abuse presented to ER with multiple falls with minor head trauma. He stated that he had been feeling 'off balance' and falling more over the past several days. He denied EtOH associated with these falls. Denied any focal weakness, but felt like both his feet were numb (this is ongoing, not new) and also c/o back pain (also chronic); he also felt off balance more lately as well. CT head in ER showed Multiple bilateral lacunar infarcts and severe cortical atrophy. Patient admitted in telemetry for close monitoring. MRI head showed acute right MCA stroke Patient started on ASa, lovenox and statin. Neurology and PT consulted He developed DT-s and was started on gabapentin 300 mg PO TID , Seroquel and Ativan PRN Patient became more lethargic with dyarthria, dysphagia, left facial droop and left side weakness. Repeat MRI of the head showed Findings compatible with the known recent right basal ganglia infarct. No new areas of infarction seen. No MR evidence of associated hemorrhage. He developed acute hypoxemic respiratory failure on 05/09 likely due to Aspiration PNA, was intubated and transferred to ICU. 1. Acute Respiratory failure with Hypoxia sec to Aspiration Pneumonia Still intubated on MV PRVC/AC mode 12/450/5/50 % with ABG 34/121/28/7.5 with thick yellowish respiratory secretions requiring frequent suctioning Sputum cultures growing MRSA and Serratia Marcescen CXR showed left upper, middle and lower lobe infiltrates--improving WBC trended down 12 ,febrile ID consult with Dr. Fritz appreciated and recommended IV Meropenem and Vanco keep head of the bed elevated frequent suctioning and aspiration precautions continue Tube feeding per NGT GI consulted for peg placement - plan for PEG once more stable Pulmonary consult- Dr Garrison apreciated Surgery was consulted for possible trache placement if unbale to extubate 2. Acute Ischemic stroke lethargic with dysarthria, dysphagia, left facial droop and left side hemiparesis MRI of the head 04/28 : 1. Acute right MCA territory infarction involving the right narayanan radiata and basal ganglia. 2. Severe chronic microangiopathic changes and mild age-related global parenchymal volume loss. Repeat MRI 05/04 showed known recent basal ganglia infarct no acute changes CTA neck showed no Blood clot , carotid doppler showed no stenosis Echo showed normal EF and wall motion Neurology consult appreciated Repeat CT head showed no hemorrhagic conversion Continue ASA, statin ,Plavix keep head of the bed elevated . F/u EEG PT consulted . He will need YEHUDA placement for physical therapy once stable Will need PEG placement 3.ETOH withdrawal/ Delirium tremens-- resolved but now lethargic due to CVA patient was tachycardic, tremulous, confused with visual hallucinations on admission was initially Started on librium tapering dose , ativan PRN -- discontinued due to sedation discussed with neurology who recommended to start patient on gabapentin and Seroquel HS that were discontinued due to lethargy Continue thiamine, folic acid, MVI, Seizure precautions 4. HTN on enalapril 1.25 mg IV Q6 5.Thrombocytopenia- improved most likely chronic secondary to ETOH abuse 6.Hypokalemia replace and monitor 7.DVT PPx on plavix and ASA
[2017-05-12] MEDS: Enoxaparin 40 mg Syringe SC SCH (09:37)
[2017-05-12] MEDS: Multiple Vitamins Oral Solution PO SCH (09:37)
[2017-05-12] MEDS: Pantoprazole 40 mg Susp UD PO SCH (09:37)
--- NOTE | 2017-05-12 09:43 | RAD ---
HISTORY: ETT placement COMPARISON: 05/11/2017 FINDINGS: The endotracheal tube terminates 3.5 cm proximal to the gavino. The nasogastric tube terminates in the stomach. LUNGS: There is interval improved aeration in the left lung with persistent perihilar consolidation. The right lung is clear. PLEURA: There is a stable small left pleural effusion. No significant right pleural effusion identified, no pneumothorax apparent. CARDIOVASCULAR: Normal. OSSEOUS STRUCTURES: No significant abnormalities. VISUALIZED UPPER ABDOMEN: Normal. OTHER FINDINGS: None. IMPRESSION: Improving left perihilar pneumonia. Persistent small left pleural effusion. Stable position of endotracheal and nasogastric tubes.
--- NOTE | 2017-05-12 10:45 | CP.PCM.PCO ---
Physician Communication Note - Physician Communication Note Physician Communication Note: Continue dual antiplatelet as per neuro recs. Discussed with ICU
--- NOTE | 2017-05-12 11:28 | CP.PCM.PN ---
Subjective - Date & Time of Evaluation Date of Evaluation: 05/12/17 Time of Evaluation: 11:24 - Subjective Subjective: General Surgery Progress Note for Dr. Osborne Patient seen and examined at bedside. He was febrile once overnight (Tmax 100.8) . Patient remains intubated on vent support (450/5/12/50%) with thick purulent secretions in ET tube. He is arousable to verbal stimuli. Objective - Vital Signs/Intake and Output Vital Signs (last 24 hours): Temp Pulse Resp BP Pulse Ox 99.7 F H 88 22 170/100 H 100 05/12/17 08:00 05/12/17 08:00 05/12/17 08:00 05/12/17 08:00 05/12/17 08:00 Intake and Output: 05/12/17 05/12/17 06:59 18:59 Intake Total 1730 Output Total 450 Balance 1280 - Medications Medications: Current Medications Acetaminophen (Tylenol 325mg Tab) 650 mg PO Q6 PRN PRN Reason: Pain, Mild (1-3) Last Admin: 05/10/17 15:55 Dose: 650 mg Acetaminophen (Tylenol 650 Mg Supp) 650 mg NM Q6 PRN PRN Reason: Fever >100.4 F Last Admin: 05/11/17 04:50 Dose: 650 mg Albuterol/Ipratropium (Duoneb 3 Mg/0.5 Mg (3 Ml) Ud) 3 ml INH RQID [facility] Last Admin: 05/12/17 07:23 Dose: 3 ml Aspirin (Aspirin Chewable) 81 mg PO DAILY [facility] Last Admin: 05/12/17 09:36 Dose: 81 mg Atorvastatin Calcium (Lipitor) 40 mg PO DAILY [facility] Last Admin: 05/12/17 09:36 Dose: 40 mg Clopidogrel Bisulfate (Plavix) 75 mg PO DAILY [facility] Last Admin: 05/12/17 09:37 Dose: 75 mg Enoxaparin Sodium (Lovenox) 40 mg SC DAILY [facility] PRN Reason: Protocol Last Admin: 05/12/17 09:37 Dose: 40 mg Folic Acid (Folic Acid) 1 mg PO DAILY [facility] Last Admin: 05/12/17 09:36 Dose: 1 mg Guaifenesin (Robitussin) 100 mg PO Q6 PRN PRN Reason: Cough Vancomycin HCl 1 gm/ Sodium (Chloride) 250 mls @ 166.667 mls/hr IVPB Q12 [facility] Last Admin: 05/12/17 09:39 Dose: 166.667 mls/hr Meropenem 1 gm/ Sodium (Chloride) 100 mls @ 100 mls/hr IVPB Q8 [facility] Last Admin: 05/12/17 09:38 Dose: 100 mls/hr Lorazepam (Ativan) 1 mg IVP Q6 PRN PRN Reason: Agitation Last Admin: 05/12/17 09:31 Dose: 1 mg Multivitamins/Vitamin C (Multi-Delyn Liquid) 5 ml PO DAILY [facility] Last Admin: 05/12/17 09:37 Dose: 5 ml Pantoprazole Sodium (Protonix Susp) 40 mg PO DAILY [facility] Last Admin: 05/12/17 09:37 Dose: 40 mg Quetiapine Fumarate (Seroquel) 25 mg PO HS [facility] Last Admin: 05/03/17 22:55 Dose: Not Given Thiamine HCl (Vitamin B1 Tab) 100 mg PO DAILY [facility] Last Admin: 05/12/17 09:37 Dose: 100 mg - Labs Labs: 05/12/17 05:00 05/12/17 05:00 PT 16.4 Seconds (9.8-13.1) H 05/10/17 04:20 INR 1.6 (0.9-1.2) H 05/10/17 04:20 - Constitutional Appears: No Acute Distress, Other (sedated and intubated) - Head Exam Head Exam: NORMOCEPHALIC - ENT Exam ENT Exam: Mucous Membranes Dry - Respiratory Exam Respiratory Exam: absent: Accessory Muscle Use, Respiratory Distress Additional comments: decreased breath sounds on the left intubated on vent support 450/5/12/50% - Cardiovascular Exam Cardiovascular Exam: REGULAR RHYTHM - Neurological Exam Neurological Exam: Altered - Psychiatric Exam Psychiatric exam: Flat Affect - Skin Skin Exam: Dry, Intact, Mottled Assessment and Plan - Assessment and Plan (Free Text) Plan: 56 M with PMH of ETOH abuse, s/p CVA being treated for MRSA PNA and acute respiratory failure (Intubated on 05/09) -Patient not medically stable for tracheostomy at this time -Will reach out to nephew (POA) to discuss options -Continue care as per ICU team -Will continue to follow -Will DW Dr. India Dunne PGY1
--- NOTE | 2017-05-12 16:01 | CP.PCM.PN ---
Subjective - Date & Time of Evaluation Date of Evaluation: 05/12/17 Time of Evaluation: 15:58 - Subjective Subjective: Mr. Norton was seen and examined today at bedside in the ICU. He had developed tachycardia, hypertension, and perfuse perspiration that responded to Ativan. There is questionable alcohol withdrawal. He is currently stable and doing well with a sustained BP and relatively normal heart rate. He opened his eyes to voice and followed simple commands. I discussed starting aspirin/ plavix with GI since there is no plan for PEG or trach at this time. Objective - Vital Signs/Intake and Output Vital Signs (last 24 hours): Temp Pulse Resp BP Pulse Ox 100.1 F H 83 23 152/81 H 100 05/12/17 12:00 05/12/17 12:00 05/12/17 12:00 05/12/17 12:00 05/12/17 12:00 Intake and Output: 05/12/17 05/12/17 06:59 18:59 Intake Total 1730 Output Total 450 Balance 1280 - Medications Medications: Current Medications Acetaminophen (Tylenol 325mg Tab) 650 mg PO Q6 PRN PRN Reason: Pain, Mild (1-3) Last Admin: 05/10/17 15:55 Dose: 650 mg Acetaminophen (Tylenol 650 Mg Supp) 650 mg [place] Q6 PRN PRN Reason: Fever >100.4 F Last Admin: 05/11/17 04:50 Dose: 650 mg Albuterol/Ipratropium (Duoneb 3 Mg/0.5 Mg (3 Ml) Ud) 3 ml INH RQID [facility] Last Admin: 05/12/17 15:31 Dose: 3 ml Aspirin (Aspirin Chewable) 81 mg PO DAILY [facility] Last Admin: 05/12/17 09:36 Dose: 81 mg Atorvastatin Calcium (Lipitor) 40 mg PO DAILY [facility] Last Admin: 05/12/17 09:36 Dose: 40 mg Clopidogrel Bisulfate (Plavix) 75 mg PO DAILY [facility] Last Admin: 05/12/17 09:37 Dose: 75 mg Enoxaparin Sodium (Lovenox) 40 mg SC DAILY [facility] PRN Reason: Protocol Last Admin: 05/12/17 09:37 Dose: 40 mg Folic Acid (Folic Acid) 1 mg PO DAILY [facility] Last Admin: 05/12/17 09:36 Dose: 1 mg Guaifenesin (Robitussin) 100 mg PO Q6 PRN PRN Reason: Cough Vancomycin HCl 1 gm/ Sodium (Chloride) 250 mls @ 166.667 mls/hr IVPB Q12 [facility] Last Admin: 05/12/17 09:39 Dose: 166.667 mls/hr Meropenem 1 gm/ Sodium (Chloride) 100 mls @ 100 mls/hr IVPB Q8 [facility] Last Admin: 05/12/17 09:38 Dose: 100 mls/hr Lorazepam (Ativan) 1 mg IVP Q6 PRN PRN Reason: Agitation Last Admin: 05/12/17 14:40 Dose: 1 mg Multivitamins/Vitamin C (Multi-Delyn Liquid) 5 ml PO DAILY [facility] Last Admin: 05/12/17 09:37 Dose: 5 ml Pantoprazole Sodium (Protonix Susp) 40 mg PO DAILY [facility] Last Admin: 05/12/17 09:37 Dose: 40 mg Quetiapine Fumarate (Seroquel) 25 mg PO HS [facility] Last Admin: 05/03/17 22:55 Dose: Not Given Thiamine HCl (Vitamin B1 Tab) 100 mg PO DAILY [facility] Last Admin: 05/12/17 09:37 Dose: 100 mg - Labs Labs: 05/12/17 05:00 05/12/17 05:00 PT 16.4 Seconds (9.8-13.1) H 05/10/17 04:20 INR 1.6 (0.9-1.2) H 05/10/17 04:20 - Neurological Exam Additional comments: Neurologically unchanged compared with previous examination. Assessment and Plan (1) Acute ischemic stroke Assessment & Plan: Continue Aspirin/Plavix for secondary stroke prevention. Treat underlying infection and pulmonary issues. No further recommendations at this time. When the patient is stable, he will require extensive PT/OT. Status: Acute
--- NOTE | 2017-05-12 17:47 | CP.PCM.PN ---
Subjective - Date & Time of Evaluation Date of Evaluation: 05/12/17 Time of Evaluation: 09:00 - Subjective Subjective: F/U Respiratory Failure Intubated, arousable to tactil stimuli Objective - Vital Signs/Intake and Output Vital Signs (last 24 hours): Temp Pulse Resp BP Pulse Ox 99.7 F H 78 28 H 158/86 H 100 05/12/17 16:00 05/12/17 16:00 05/12/17 16:00 05/12/17 16:00 05/12/17 16:00 Intake and Output: 05/12/17 05/12/17 06:59 18:59 Intake Total 1730 Output Total 450 Balance 1280 - Medications Medications: Current Medications Acetaminophen (Tylenol 325mg Tab) 650 mg PO Q6 PRN PRN Reason: Pain, Mild (1-3) Last Admin: 05/10/17 15:55 Dose: 650 mg Acetaminophen (Tylenol 650 Mg Supp) 650 mg MD Q6 PRN PRN Reason: Fever >100.4 F Last Admin: 05/11/17 04:50 Dose: 650 mg Albuterol/Ipratropium (Duoneb 3 Mg/0.5 Mg (3 Ml) Ud) 3 ml INH RQID [facility] Last Admin: 05/12/17 15:31 Dose: 3 ml Aspirin (Aspirin Chewable) 81 mg PO DAILY [facility] Last Admin: 05/12/17 09:36 Dose: 81 mg Atorvastatin Calcium (Lipitor) 40 mg PO DAILY [facility] Last Admin: 05/12/17 09:36 Dose: 40 mg Clopidogrel Bisulfate (Plavix) 75 mg PO DAILY [facility] Last Admin: 05/12/17 09:37 Dose: 75 mg Enalaprilat (Vasotec Iv) 1.25 mg IV Q6 [facility] Enoxaparin Sodium (Lovenox) 40 mg SC DAILY [facility] PRN Reason: Protocol Last Admin: 05/12/17 09:37 Dose: 40 mg Folic Acid (Folic Acid) 1 mg PO DAILY [facility] Last Admin: 05/12/17 09:36 Dose: 1 mg Guaifenesin (Robitussin) 100 mg PO Q6 PRN PRN Reason: Cough Vancomycin HCl 1 gm/ Sodium (Chloride) 250 mls @ 166.667 mls/hr IVPB Q12 [facility] Last Admin: 05/12/17 09:39 Dose: 166.667 mls/hr Meropenem 1 gm/ Sodium (Chloride) 100 mls @ 100 mls/hr IVPB Q8 [facility] Last Admin: 05/12/17 16:36 Dose: 100 mls/hr Lorazepam (Ativan) 1 mg IVP Q6 PRN PRN Reason: Agitation Last Admin: 05/12/17 14:40 Dose: 1 mg Multivitamins/Vitamin C (Multi-Delyn Liquid) 5 ml PO DAILY [facility] Last Admin: 05/12/17 09:37 Dose: 5 ml Pantoprazole Sodium (Protonix Susp) 40 mg PO DAILY [facility] Last Admin: 05/12/17 09:37 Dose: 40 mg Quetiapine Fumarate (Seroquel) 25 mg PO HS [facility] Last Admin: 05/03/17 22:55 Dose: Not Given Thiamine HCl (Vitamin B1 Tab) 100 mg PO DAILY [facility] Last Admin: 05/12/17 09:37 Dose: 100 mg - Labs Labs: 05/12/17 05:00 05/12/17 05:00 PT 16.4 Seconds (9.8-13.1) H 05/10/17 04:20 INR 1.6 (0.9-1.2) H 05/10/17 04:20 - Constitutional Appears: Chronically Ill - Head Exam Head Exam: NORMAL INSPECTION - Eye Exam Eye Exam: PERRL - ENT Exam Additional comments: Intubated - Neck Exam Neck Exam: Normal Inspection - Respiratory Exam Respiratory Exam: Decreased Breath Sounds (Left), Rhonchi (scattered) - Cardiovascular Exam Cardiovascular Exam: REGULAR RHYTHM - GI/Abdominal Exam GI & Abdominal Exam: Soft, Normal Bowel Sounds - Extremities Exam Extremities Exam: absent: Pedal Edema - Back Exam Back Exam: NORMAL INSPECTION - Neurological Exam Additional comments: Arousable to tactil stimulation - Skin Skin Exam: Warm Assessment and Plan (1) Acute respiratory failure Status: Acute (2) MRSA pneumonia Status: Acute (3) Acute right MCA stroke Status: Acute - Assessment and Plan (Free Text) Plan: Ventilarory support, Continue Atb Tx , f/u CXR ICU Time: 35 min.
[2017-05-12] MEDS ORDERED: Dextrose 5%/0.45% NS 1,000 ML IV SCH (19:15)
[2017-05-12] MEDS: Potassium Chl 40 mEq in D5-1/2 1,000 ML IV SCH (21:01)
[2017-05-12] MEDS: EnalaprilAT 1.25 mg/ml Inj IV SCH (21:10)
[2017-05-13] MEDS ORDERED: Albuterol-Ipratrop 3 mg / 0.5 (3 ml) UD INH STA (00:08)
[2017-05-13] MEDS: Meropenem 1 GM in Sodium Chloride 0.9% 100 ML IVPB SCH ×3 (00:10→17:14)
[2017-05-13] MEDS: EnalaprilAT 1.25 mg/ml Inj IV SCH ×4 (04:32→22:30)
[2017-05-13 05:44] LABS: HEMATOCRIT 32.5 % (35.0-51.0); MEAN CORPUSCULAR HEMOGLOBIN 33.7 pg (27.0-31.0); MEAN CORPUSCULAR HGB CONC 33.4 g/dL (33.0-37.0); RED CELL DISTRIBUTION WIDTH 14.1 % (11.5-14.5); WHITE BLOOD COUNT 12.5 K/uL (4.8-10.8)
[2017-05-13 05:46] LABS: ABG ALLEN TEST YES; ABG MECHANICAL RATE 12; ARTERIAL BLOOD GAS HCO3 28.7 mmol/L (21-28); ARTERIAL BLOOD GAS MODE A/C; ARTERIAL BLOOD GAS O2 CAPACITY 17.5 mL/dL (16-24); ARTERIAL BLOOD GAS PH 7.46 (7.35-7.45); ARTERIAL BLOOD GAS PO2 78 mm/Hg (80-100); ARTERIAL BLOOD HGB O2 SAT 94.3 % (95.0-98.0); ATERIAL BLOOD GAS PEEP 5; CARBOXYHEMOGLOBIN 1.1 % (0.5-1.5); HHB 2.7 % (0.0-5.0); METHEMOGLOBIN 1.9 % (0.0-3.0)
[2017-05-13 06:13] LABS: BLOOD UREA NITROGEN 9 mg/dl (9-20); CALCIUM 8.7 mg/dL (8.4-10.2); CARBON DIOXIDE 29 mmol/L (22-30); CHLORIDE 104 mmol/L (98-107); GFR AFRICAN-AMERICAN > 60; GLUCOSE,RANDOM 123 mg/dL (75-110); POTASSIUM 3.7 MMOL/L (3.6-5.0); SODIUM 138 mmol/l (132-148)
--- NOTE | 2017-05-13 07:41 | CP.CCUPN ---
<Nancy Rob - Last Filed: 05/13/17 12:40> CCU Subjective - Physician Review Subjective (Free Text): Patient seen and examined at bedside, awake, intubated. Left side remains flaccid, able to minimally squeeze with right hand when prompted. Low grade temp of 100.1 F last night. 05/13/17 11:44 05/13/17 12:31 CCU Objective - Vital Signs / Intake & Output Vital Signs (Last 4 hours): Vital Signs Temp Pulse Resp BP Pulse Ox 05/13/17 06:00 87 25 H 165/89 H 98 05/13/17 04:32 125/75 05/13/17 04:00 99 F 70 20 125/75 97 Intake and Output (Last 8hrs): Intake & Output 05/12/17 05/13/17 05/13/17 22:59 06:59 14:59 Intake Total 480 865 Output Total 900 Balance 480 -35 Intake: IV 150 525 Intake, Piggyback 250 100 Tube Feeding 80 240 Output: Urine 900 Urethral (Adame) 900 - Physical Exam Head: Positive for: Atraumatic, Normocephalic Pupils: Positive for: PERRL Extroacular Muscles: Positive for: EOMI Conjunctiva: Positive for: Normal Mouth: Positive for: Moist Mucous Membranes Neck: Negative for: JVD, Bruit Respiratory/Chest: Positive for: Decreased Breath Sounds (left), Rhonchi ( diffuse) Cardiovascular: Positive for: Regular Rate and Rhythm Abdomen: Positive for: Normal Bowel Sounds. Negative for: Tenderness, Distention Upper Extremity: Positive for: Other (spontaneous movement of right arm) Lower Extremity: Positive for: NORMAL PULSES, Other (spontaneous movement of right leg). Negative for: CALF TENDERNESS, Cyanosis Neurological: Positive for: Other (Left hemiplegia) Skin: Positive for: Warm. Negative for: Rashes Psychiatric: Positive for: Alert - Medications Active Medications: Active Medications Generic Name Dose Route Start Last Admin Trade Name Freq PRN Reason Stop Dose Admin Acetaminophen 650 mg 04/27/17 03:51 05/10/17 15:55 Tylenol 325mg Tab PO 650 mg Q6 PRN Administration Pain, Mild (1-3) Acetaminophen 650 mg 05/09/17 12:30 05/11/17 04:50 Tylenol 650 Mg Supp IA 650 mg Q6 PRN Administration Fever >100.4 F Albuterol/Ipratropium 3 ml 05/04/17 20:00 05/12/17 19:24 Duoneb 3 Mg/0.5 Mg (3 Ml) Ud INH 3 ml RQID [facility] Administration Aspirin 81 mg 04/27/17 09:00 05/12/17 09:36 Aspirin Chewable PO 81 mg DAILY [facility] Administration Atorvastatin Calcium 40 mg 04/27/17 09:00 05/12/17 09:36 Lipitor PO 40 mg DAILY [facility] Administration Clopidogrel Bisulfate 75 mg 05/11/17 17:18 05/12/17 09:37 Plavix PO 75 mg DAILY [facility] Administration Enalaprilat 1.25 mg 05/12/17 22:00 05/13/17 04:32 Vasotec Iv IV 1.25 mg Q6 [facility] Administration Enoxaparin Sodium 40 mg 04/27/17 09:00 05/12/17 09:37 Lovenox SC 40 mg DAILY [facility] Administration Protocol Folic Acid 1 mg 04/27/17 15:15 05/12/17 09:36 Folic Acid PO 1 mg DAILY [facility] Administration Guaifenesin 100 mg 05/09/17 15:26 Robitussin PO Q6 PRN Cough Vancomycin HCl 1 gm/ Sodium 250 mls @ 166.667 mls/hr 05/04/17 21:00 05/12/17 20:34 Chloride IVPB 166.667 mls/hr Q12 [facility] Administration Meropenem 1 gm/ Sodium 100 mls @ 100 mls/hr 05/10/17 17:00 05/13/17 00:10 Chloride IVPB 100 mls/hr Q8 [facility] Administration Potassium Chloride/Dextrose/Sod Cl 1,000 mls @ 75 mls/hr 05/12/17 19:30 05/12 21:01 Potassium Chl 40 Meq In D5-1/2ns IV 05/13/17 19:29 75 mls/hr .[id number] [facility] Administration Lorazepam 1 mg 05/10/17 21:57 05/13/17 06:30 Ativan IVP 1 mg Q6 PRN Administration Agitation Multivitamins/Vitamin C 5 ml 04/27/17 15:15 05/12/17 09:37 Multi-Delyn Liquid PO 5 ml DAILY [facility] Administration Pantoprazole Sodium 40 mg 05/10/17 09:00 05/12/17 09:37 Protonix Susp PO 40 mg DAILY [facility] Administration Quetiapine Fumarate 25 mg 04/28/17 22:00 05/03/17 22:55 Seroquel PO Not Given HS [facility] Thiamine HCl 100 mg 04/27/17 15:15 05/12/17 09:37 Vitamin B1 Tab PO 100 mg DAILY [facility] Administration - Patient Studies Lab Studies: Microbiology Studies 05/09/17 13:10 Blood Culture - Preliminary Blood NO GROWTH AFTER 3 DAYS Lab Studies 05/13/17 05/13/17 05/13/17 Range/Units 05:10 04:20 04:20 WBC 12.5 H (4.8-10.8) K/uL RBC 3.22 L (4.40-5.90) Mil/uL Hgb 10.9 L (12.0-18.0) g/dL Hct 32.5 L (35.0-51.0) % MCV 101.0 H (80.0-94.0) fl MCH 33.7 H (27.0-31.0) pg MCHC 33.4 (33.0-37.0) g/dL RDW 14.1 (11.5-14.5) % Plt Count 299 (130-400) K/uL pCO2 41 (35-45) mm/Hg pO2 78 L (80-100) mm/Hg HCO3 28.7 H (21-28) mmol/L ABG pH 7.46 H (7.35-7.45) ABG Total CO2 30.5 H (22-28) mmol/L ABG O2 Saturation 97.2 (95-98) % ABG O2 Content 17.0 (15-23) ML/dL ABG Base Excess 4.9 H (-2.0-3.0) mmol/L ABG Hemoglobin 12.8 (11.7-17.4) g/dL ABG Carboxyhemoglobin 1.1 (0.5-1.5) % POC ABG HHb (Measured) 2.7 (0.0-5.0) % ABG Methemoglobin 1.9 (0.0-3.0) % ABG O2 Capacity 17.5 (16-24) mL/dL Carson Test Yes A-a O2 Difference 227.0 mm/Hg Hgb O2 Saturation 94.3 L (95.0-98.0) % Vent Mode A/c Mechanical Rate 12 FiO2 50.0 % Tidal Volume 450 PEEP 5 Sodium 138 (132-148) mmol/l Potassium 3.7 (3.6-5.0) MMOL/L Chloride 104 (98-107) mmol/L Carbon Dioxide 29 (22-30) mmol/L Anion Gap 9 L (10-20) BUN 9 (9-20) mg/dl Creatinine 0.4 L (0.8-1.5) mg/dL Est GFR ( Amer) > 60 Est GFR (Non-Af Amer) > 60 Random Glucose 123 H (75-110) mg/dL Calcium 8.7 (8.4-10.2) mg/dL Laboratory Results - last 24 hr 05/13/17 05/13/17 05/13/17 04:20 04:20 05:10 WBC 12.5 H RBC 3.22 L Hgb 10.9 L Hct 32.5 L MCV 101.0 H MCH 33.7 H MCHC 33.4 RDW 14.1 Plt Count 299 pCO2 41 pO2 78 L HCO3 28.7 H ABG pH 7.46 H ABG Total CO2 30.5 H ABG O2 Saturation 97.2 ABG O2 Content 17.0 ABG Base Excess 4.9 H ABG Hemoglobin 12.8 ABG Carboxyhemoglobin 1.1 POC ABG HHb (Measured) 2.7 ABG Methemoglobin 1.9 ABG O2 Capacity 17.5 Carson Test Yes A-a O2 Difference 227.0 Hgb O2 Saturation 94.3 L Vent Mode A/c Mechanical Rate 12 FiO2 50.0 Tidal Volume 450 PEEP 5 Sodium 138 Potassium 3.7 Chloride 104 Carbon Dioxide 29 Anion Gap 9 L BUN 9 Creatinine 0.4 L Est GFR ( Amer) > 60 Est GFR (Non-Af Amer) > 60 Random Glucose 123 H Calcium 8.7 Review of Systems - Review of Systems Systems not reviewed;Unavailable: Intubated (, pt not responding with head gestures/movements when prompted) Critical Care Progress Note - Nutrition Nutrition: Nutrition Category Date Time Status NPO Diet [DIET] Diets 05/04/17 Lunch Active Assessment/Plan - Assessment and Plan (Free Text) Assessment: 56 yr old M admitted to ICU for respiratory failure s/p CVA, with PMHx HTN, anemia, Etoh abuse and homeless. 1. Acute Hypoxic Respiratory Failure secondary to aspiration pnuemonia (sputum Cx MRSA, Serratia marcesens) 2. Metabolic Encephalopathy 3. CVA- right MCA, subacute 4. h/o Etoh abuse 5. DVT prophylaxis, GI prophylaxis Plan 1. ventilator settings: FiO2 50%, PEEP 5, TV 450, Resp rate 12, continue meropenem and vanco 2. stable, Ativan PRN for agitation, OG tube in place, on antibiotics for underlying pneumonia, on thiamine for h/o Etoh abuse, per surgery no intervention for trach at this time 3. continue with ASA, Plavix, per CT Head showed no acute bleed and neuro recommendation 4. Thiamine and folic acid supplementation, Ativan PRN 5. Lovenox 40mg SC QD, Pantoprazole 40mg PO QD - Date & Time Date: 05/13/17 Time: 08:35 <Samy Watson - Last Filed: 05/13/17 19:17> Assessment/Plan - Assessment and Plan (Free Text) Assessment: Attestation: Patient seen and examined at the bedside with Resident Dr. Natalya Rob; and I agree with her outline of plans and management as documented, and as discussed on AM rounds reflecting my review of all applicable clinical data, and participation in the care of the patient throughout the day in ICU; today, May 13, 2017.
--- NOTE | 2017-05-13 08:09 | CP.PCM.PN ---
Subjective - Date & Time of Evaluation Date of Evaluation: 05/13/17 Time of Evaluation: 08:06 - Subjective Subjective: Surgery Patient remains intubated and sedated in ICU. Patient tachypnea overnight, medicated with ativan. Objective - Vital Signs/Intake and Output Vital Signs (last 24 hours): Temp Pulse Resp BP Pulse Ox 98.6 F 87 25 H 165/89 H 98 05/13/17 08:04 05/13/17 06:00 05/13/17 06:00 05/13/17 06:00 05/13/17 06:00 Intake and Output: 05/13/17 05/13/17 06:59 18:59 Intake Total 1345 Output Total 900 Balance 445 - Medications Medications: Current Medications Acetaminophen (Tylenol 325mg Tab) 650 mg PO Q6 PRN PRN Reason: Pain, Mild (1-3) Last Admin: 05/10/17 15:55 Dose: 650 mg Acetaminophen (Tylenol 650 Mg Supp) 650 mg OR Q6 PRN PRN Reason: Fever >100.4 F Last Admin: 05/11/17 04:50 Dose: 650 mg Albuterol/Ipratropium (Duoneb 3 Mg/0.5 Mg (3 Ml) Ud) 3 ml INH RQID [facility] Last Admin: 05/12/17 19:24 Dose: 3 ml Aspirin (Aspirin Chewable) 81 mg PO DAILY [facility] Last Admin: 05/12/17 09:36 Dose: 81 mg Atorvastatin Calcium (Lipitor) 40 mg PO DAILY [facility] Last Admin: 05/12/17 09:36 Dose: 40 mg Clopidogrel Bisulfate (Plavix) 75 mg PO DAILY [facility] Last Admin: 05/12/17 09:37 Dose: 75 mg Enalaprilat (Vasotec Iv) 1.25 mg IV Q6 [facility] Last Admin: 05/13/17 04:32 Dose: 1.25 mg Enoxaparin Sodium (Lovenox) 40 mg SC DAILY [facility] PRN Reason: Protocol Last Admin: 05/12/17 09:37 Dose: 40 mg Folic Acid (Folic Acid) 1 mg PO DAILY [facility] Last Admin: 05/12/17 09:36 Dose: 1 mg Guaifenesin (Robitussin) 100 mg PO Q6 PRN PRN Reason: Cough Vancomycin HCl 1 gm/ Sodium (Chloride) 250 mls @ 166.667 mls/hr IVPB Q12 [facility] Last Admin: 05/12/17 20:34 Dose: 166.667 mls/hr Meropenem 1 gm/ Sodium (Chloride) 100 mls @ 100 mls/hr IVPB Q8 [facility] Last Admin: 05/13/17 00:10 Dose: 100 mls/hr Potassium Chloride/Dextrose/Sod Cl (Potassium Chl 40 Meq In D5-1/2ns) 1,000 mls @ 75 mls/hr IV .[id number] [facility] Stop: 05/13/17 19:29 Last Admin: 05/12/17 21:01 Dose: 75 mls/hr Lorazepam (Ativan) 1 mg IVP Q6 PRN PRN Reason: Agitation Last Admin: 05/13/17 06:30 Dose: 1 mg Multivitamins/Vitamin C (Multi-Delyn Liquid) 5 ml PO DAILY [facility] Last Admin: 05/12/17 09:37 Dose: 5 ml Pantoprazole Sodium (Protonix Susp) 40 mg PO DAILY [facility] Last Admin: 05/12/17 09:37 Dose: 40 mg Quetiapine Fumarate (Seroquel) 25 mg PO HS [facility] Last Admin: 05/03/17 22:55 Dose: Not Given Thiamine HCl (Vitamin B1 Tab) 100 mg PO DAILY [facility] Last Admin: 05/12/17 09:37 Dose: 100 mg - Labs Labs: 05/13/17 04:20 05/13/17 04:20 PT 16.4 Seconds (9.8-13.1) H 05/10/17 04:20 INR 1.6 (0.9-1.2) H 05/10/17 04:20 - Constitutional Appears: Other (sedated intubated) - Head Exam Head Exam: ATRAUMATIC, NORMOCEPHALIC - ENT Exam Additional comments: ET tube in place - Respiratory Exam Additional comments: intubated on vent requiring 60% FiO2 w/ periods of tachypnea over night, medicated with ativan - Cardiovascular Exam Cardiovascular Exam: REGULAR RHYTHM. absent: Tachycardia Assessment and Plan - Assessment and Plan (Free Text) Assessment: 56 M with acute respiratory failure, intubated on 05/09, as well as CVA and MRSA PNA Plan: -cont ICU management -will follow -no urgent surgical intervention for trach at this time -awaiting family preference on trach -further recs per attending AKWhite PGY3
[2017-05-13] MEDS: Albuterol-Ipratrop 3 mg / 0.5 (3 ml) UD INH SCH ×4 (08:13→19:52)
--- NOTE | 2017-05-13 08:24 | EEG ---
DATE: INTRODUCTION: This is a digitally recorded EEG monitoring using standard EEG montages. BACKGROUND RHYTHM: The EEG shows a background activity of 5 to 6 Hertz theta activity. This EEG activity is present diffusely. No EEG activity was seen. ABNORMAL POTENTIALS: No spike, sharp waves or focal slowing was seen. Photic stimulation and hyperventilation. Photic stimulation did not reveal any abnormality, hyperventilation was not performed. IMPRESSION: Abnormal EEG. The above findings are consistent with moderate cerebral dysfunction. No epileptiform activity seen in this EEG recording. Mora Wang MD
[2017-05-13] MEDS: Enoxaparin 40 mg Syringe SC SCH (10:10)
[2017-05-13] MEDS: Pantoprazole 40 mg Susp UD PO SCH (10:10)
[2017-05-13] MEDS: Potassium Chl 40 mEq in D5-1/2 1,000 ML IV SCH (10:18)
--- NOTE | 2017-05-13 10:40 | RAD ---
PROCEDURE: CHEST RADIOGRAPH, 1 VIEW HISTORY: intubated COMPARISON: None available. FINDINGS: LUNGS: Re- demonstrated is in situ ETT, tip of which lies approximately 4.76 cm above gavino. In situ NGT, tip of which lies left parasagittal upper abdomen. There has been further opacification of the left lung likely representing some combination of atelectasis/ infiltrate and effusion. Right lung is relatively clear. . PLEURA: No pneumothorax or pleural fluid seen. CARDIOVASCULAR: Normal. OSSEOUS STRUCTURES: No significant abnormalities. VISUALIZED UPPER ABDOMEN: Normal. OTHER FINDINGS: None. IMPRESSION: ETT and NGT as above. There has been further opacification of the left lung likely representing some combination of atelectasis/ infiltrate and effusion. Right lung is relatively clear. .
--- NOTE | 2017-05-13 11:07 | CP.PCM.PN ---
Subjective - Date & Time of Evaluation Date of Evaluation: 05/13/17 Time of Evaluation: 10:30 - Subjective Subjective: Febrile last night Remains intubated , on Mech Vent PRVC/AC 50% FiO2 failed weaning trial leukocytosis trending down was agitated last night requiring Ativan Pt is awake and follows simple commands Objective - Vital Signs/Intake and Output Vital Signs (last 24 hours): Temp Pulse Resp BP Pulse Ox 98.6 F 87 25 H 172/89 H 98 05/13/17 08:04 05/13/17 06:00 05/13/17 06:00 05/13/17 10:11 05/13/17 06:00 Intake and Output: 05/13/17 05/13/17 06:59 18:59 Intake Total 1345 Output Total 900 Balance 445 - Medications Medications: Current Medications Acetaminophen (Tylenol 325mg Tab) 650 mg PO Q6 PRN PRN Reason: Pain, Mild (1-3) Last Admin: 05/10/17 15:55 Dose: 650 mg Acetaminophen (Tylenol 650 Mg Supp) 650 mg MA Q6 PRN PRN Reason: Fever >100.4 F Last Admin: 05/11/17 04:50 Dose: 650 mg Albuterol/Ipratropium (Duoneb 3 Mg/0.5 Mg (3 Ml) Ud) 3 ml INH RQID [facility] Last Admin: 05/13/17 08:13 Dose: 3 ml Aspirin (Aspirin Chewable) 81 mg PO DAILY [facility] Last Admin: 05/13/17 10:10 Dose: 81 mg Atorvastatin Calcium (Lipitor) 40 mg PO DAILY [facility] Last Admin: 05/13/17 10:14 Dose: 40 mg Clopidogrel Bisulfate (Plavix) 75 mg PO DAILY [facility] Last Admin: 05/13/17 10:11 Dose: 75 mg Enalaprilat (Vasotec Iv) 1.25 mg IV Q6 [facility] Last Admin: 05/13/17 10:11 Dose: 1.25 mg Enoxaparin Sodium (Lovenox) 40 mg SC DAILY [facility] PRN Reason: Protocol Last Admin: 05/13/17 10:10 Dose: 40 mg Folic Acid (Folic Acid) 1 mg PO DAILY [facility] Last Admin: 05/13/17 10:10 Dose: 1 mg Guaifenesin (Robitussin) 100 mg PO Q6 PRN PRN Reason: Cough Vancomycin HCl 1 gm/ Sodium (Chloride) 250 mls @ 166.667 mls/hr IVPB Q12 [facility] Last Admin: 05/13/17 10:13 Dose: 166.667 mls/hr Meropenem 1 gm/ Sodium (Chloride) 100 mls @ 100 mls/hr IVPB Q8 [facility] Last Admin: 05/13/17 10:13 Dose: 100 mls/hr Potassium Chloride/Dextrose/Sod Cl (Potassium Chl 40 Meq In D5-1/2ns) 1,000 mls @ 75 mls/hr IV .[id number] [facility] Stop: 05/13/17 19:29 Last Admin: 05/13/17 10:18 Dose: 75 mls/hr Lorazepam (Ativan) 1 mg IVP Q6 PRN PRN Reason: Agitation Last Admin: 05/13/17 06:30 Dose: 1 mg Multivitamins/Vitamin C (Multi-Delyn Liquid) 5 ml PO DAILY [facility] Last Admin: 05/12/17 09:37 Dose: 5 ml Pantoprazole Sodium (Protonix Susp) 40 mg PO DAILY [facility] Last Admin: 05/13/17 10:10 Dose: 40 mg Quetiapine Fumarate (Seroquel) 25 mg PO HS [facility] Last Admin: 05/03/17 22:55 Dose: Not Given Thiamine HCl (Vitamin B1 Tab) 100 mg PO DAILY [facility] Last Admin: 05/13/17 10:11 Dose: 100 mg - Labs Labs: 05/13/17 04:20 05/13/17 04:20 PT 16.4 Seconds (9.8-13.1) H 05/10/17 04:20 INR 1.6 (0.9-1.2) H 05/10/17 04:20 - Constitutional Appears: Older Than Stated Age, Chronically Ill, Other (Intubated) - Head Exam Head Exam: NORMOCEPHALIC - Eye Exam Eye Exam: Normal appearance - ENT Exam ENT Exam: Mucous Membranes Dry, Normal External Ear Exam - Neck Exam Neck Exam: absent: Meningismus - Respiratory Exam Respiratory Exam: Rales, Rhonchi Additional comments: Pt is intubated on Mech Vent - Cardiovascular Exam Cardiovascular Exam: REGULAR RHYTHM, +S1, +S2 - GI/Abdominal Exam GI & Abdominal Exam: Soft, Normal Bowel Sounds. absent: Tenderness - Extremities Exam Extremities Exam: Normal Capillary Refill. absent: Pedal Edema - Neurological Exam Neuro motor strength exam: Left Upper Extremity: 0, Left Lower Extremity: 0 Additional comments: Intubated opens eyes to verbal stimuli moves RUE and RLE follows simple commands - Skin Skin Exam: Dry, Normal Color, Warm Assessment and Plan - Assessment and Plan (Free Text) Assessment: 56 y/o homeless male with PMHx significant for HTN, anemia, and EtOH abuse presented to ER with multiple falls with minor head trauma. He stated that he had been feeling 'off balance' and falling more over the past several days. He denied EtOH associated with these falls. Denied any focal weakness, but felt like both his feet were numb (this is ongoing, not new) and also c/o back pain (also chronic); he also felt off balance more lately as well. CT head in ER showed Multiple bilateral lacunar infarcts and severe cortical atrophy. Patient admitted in telemetry for close monitoring. MRI head showed acute right MCA stroke Patient started on ASa, lovenox and statin. Neurology and PT consulted He developed DT-s and was started on gabapentin 300 mg PO TID , Seroquel and Ativan PRN Patient became more lethargic with dyarthria, dysphagia, left facial droop and left side weakness. Repeat MRI of the head showed : Findings compatible with the known recent right basal ganglia infarct. No new areas of infarction seen. No MR evidence of associated hemorrhage. He developed acute hypoxemic respiratory failure on 05/09 likely due to Aspiration PNA, was intubated and transferred to ICU. 1. Acute Respiratory failure with Hypoxia sec to Aspiration Pneumonia Still intubated on MV PRVC/AC mode 12/450/5/50 % with thick yellowish respiratory secretions requiring frequent suctioning Sputum cultures growing MRSA and Serratia Marcescen CXR showed left upper, middle and lower lobe infiltrates--improving WBC trended down 12 , febrile ID consult with Dr. Fritz appreciated and recommended IV Meropenem and Vanco keep head of the bed elevated frequent suctioning and aspiration precautions continue Tube feeding per NGT GI consulted for peg placement - plan for PEG once more stable Pulmonary consult- Dr Garrison apreciated Surgery was consulted for possible Trach placement if unbale to extubate 2. Acute Ischemic stroke lethargic with dysarthria, dysphagia, left facial droop and left side hemiparesis MRI of the head 04/28 : 1. Acute right MCA territory infarction involving the right narayanan radiata and basal ganglia. 2. Severe chronic microangiopathic changes and mild age-related global parenchymal volume loss. Repeat MRI 05/04 showed known recent basal ganglia infarct no acute changes CTA neck showed no Blood clot , carotid doppler showed no stenosis Echo showed normal EF and wall motion Neurology consult appreciated Repeat CT head showed no hemorrhagic conversion Continue ASA, statin ,Plavix keep head of the bed elevated . F/u EEG PT consulted . He will need YEHUDA placement for physical therapy once stable Will need PEG placement 3.ETOH withdrawal/ Delirium tremens-- resolved but now lethargic due to CVA patient was tachycardic, tremulous, confused with visual hallucinations on admission was initially Started on librium tapering dose , ativan PRN -- discontinued due to sedation discussed with neurology who recommended to start patient on gabapentin and Seroquel HS that were discontinued due to lethargy Continue thiamine, folic acid, MVI, Seizure precautions 4. HTN on enalapril 1.25 mg IV Q6 5.Thrombocytopenia- improved most likely chronic secondary to ETOH abuse 6.Hypokalemia replace and monitor 7.DVT PPx Lovenox
--- NOTE | 2017-05-13 12:16 | CP.PCM.PN ---
Subjective - Date & Time of Evaluation Date of Evaluation: 05/13/17 Time of Evaluation: 12:10 - Subjective Subjective: F/U Respiratory Failure. Intubated arousable to tactil stimulation Objective - Vital Signs/Intake and Output Vital Signs (last 24 hours): Temp Pulse Resp BP Pulse Ox 98.6 F 87 25 H 172/89 H 98 05/13/17 08:04 05/13/17 06:00 05/13/17 06:00 05/13/17 10:11 05/13/17 06:00 Intake and Output: 05/13/17 05/13/17 06:59 18:59 Intake Total 1345 Output Total 900 Balance 445 - Medications Medications: Current Medications Acetaminophen (Tylenol 325mg Tab) 650 mg PO Q6 PRN PRN Reason: Pain, Mild (1-3) Last Admin: 05/10/17 15:55 Dose: 650 mg Acetaminophen (Tylenol 650 Mg Supp) 650 mg [place] Q6 PRN PRN Reason: Fever >100.4 F Last Admin: 05/11/17 04:50 Dose: 650 mg Albuterol/Ipratropium (Duoneb 3 Mg/0.5 Mg (3 Ml) Ud) 3 ml INH RQID [facility] Last Admin: 05/13/17 11:42 Dose: 3 ml Aspirin (Aspirin Chewable) 81 mg PO DAILY [facility] Last Admin: 05/13/17 10:10 Dose: 81 mg Atorvastatin Calcium (Lipitor) 40 mg PO DAILY [facility] Last Admin: 05/13/17 10:14 Dose: 40 mg Clopidogrel Bisulfate (Plavix) 75 mg PO DAILY [facility] Last Admin: 05/13/17 10:11 Dose: 75 mg Enalaprilat (Vasotec Iv) 1.25 mg IV Q6 [facility] Last Admin: 05/13/17 10:11 Dose: 1.25 mg Enoxaparin Sodium (Lovenox) 40 mg SC DAILY [facility] PRN Reason: Protocol Last Admin: 05/13/17 10:10 Dose: 40 mg Folic Acid (Folic Acid) 1 mg PO DAILY [facility] Last Admin: 05/13/17 10:10 Dose: 1 mg Guaifenesin (Robitussin) 100 mg PO Q6 PRN PRN Reason: Cough Vancomycin HCl 1 gm/ Sodium (Chloride) 250 mls @ 166.667 mls/hr IVPB Q12 [facility] Last Admin: 05/13/17 10:13 Dose: 166.667 mls/hr Meropenem 1 gm/ Sodium (Chloride) 100 mls @ 100 mls/hr IVPB Q8 [facility] Last Admin: 05/13/17 10:13 Dose: 100 mls/hr Potassium Chloride/Dextrose/Sod Cl (Potassium Chl 40 Meq In D5-1/2ns) 1,000 mls @ 75 mls/hr IV .[id number] [facility] Stop: 05/13/17 19:29 Last Admin: 05/13/17 10:18 Dose: 75 mls/hr Lorazepam (Ativan) 1 mg IVP Q6 PRN PRN Reason: Agitation Last Admin: 05/13/17 06:30 Dose: 1 mg Multivitamins/Vitamin C (Multi-Delyn Liquid) 5 ml PO DAILY [facility] Last Admin: 05/12/17 09:37 Dose: 5 ml Pantoprazole Sodium (Protonix Susp) 40 mg PO DAILY [facility] Last Admin: 05/13/17 10:10 Dose: 40 mg Quetiapine Fumarate (Seroquel) 25 mg PO HS [facility] Last Admin: 05/03/17 22:55 Dose: Not Given Thiamine HCl (Vitamin B1 Tab) 100 mg PO DAILY [facility] Last Admin: 05/13/17 10:11 Dose: 100 mg - Labs Labs: 05/13/17 04:20 05/13/17 04:20 PT 16.4 Seconds (9.8-13.1) H 05/10/17 04:20 INR 1.6 (0.9-1.2) H 05/10/17 04:20 - Constitutional Appears: Chronically Ill - Head Exam Head Exam: NORMAL INSPECTION - Eye Exam Eye Exam: PERRL - ENT Exam Additional comments: Intubated - Neck Exam Neck Exam: Normal Inspection - Respiratory Exam Respiratory Exam: Decreased Breath Sounds (Left > R), Rhonchi (scattered) - Cardiovascular Exam Cardiovascular Exam: REGULAR RHYTHM - GI/Abdominal Exam GI & Abdominal Exam: Soft, Normal Bowel Sounds - Extremities Exam Extremities Exam: absent: Pedal Edema - Back Exam Back Exam: NORMAL INSPECTION - Neurological Exam Additional comments: Arousable to tactile stimuli. - Psychiatric Exam Psychiatric exam: Flat Affect - Skin Skin Exam: Warm Assessment and Plan (1) Acute respiratory failure Status: Acute (2) MRSA pneumonia Status: Acute (3) Acute right MCA stroke Status: Acute - Assessment and Plan (Free Text) Plan: CXR further opacification R Lung , will attempt to get consent for Bronchoscopy, continue Ventilatory support and rest of treatment et ICU Time: 38 min.
[2017-05-13] MEDS: Multiple Vitamins Oral Solution PO SCH (15:39)
[2017-05-13] MEDS ORDERED: Metoprolol 1 mg/ml Inj IVP ONE (18:46)
[2017-05-13] MEDS ORDERED: Potassium Chl 40 mEq in D5-1/2 1,000 ML IV SCH (22:00)
[2017-05-14] MEDS: Meropenem 1 GM in Sodium Chloride 0.9% 100 ML IVPB SCH ×3 (00:04→17:03)
[2017-05-14] MEDS ORDERED: Albuterol-Ipratrop 3 mg / 0.5 (3 ml) UD INH STA (03:45)
[2017-05-14] MEDS: EnalaprilAT 1.25 mg/ml Inj IV SCH ×4 (04:00→22:42)
[2017-05-14 06:17] LABS: BASO # 0.1 K/uL (0.0-0.2); BASO % 0.7 % (0.0-2.0); EOS # 0.2 K/uL (0.0-0.7); EOS % 1.8 % (0.0-4.0); HEMATOCRIT 32.4 % (35.0-51.0); LYMPH # 1.2 K/uL (1.0-4.3); LYMPH % 8.8 % (20.0-40.0); MEAN CELL VOLUME 100.7 fl (80.0-94.0); MEAN CORPUSCULAR HEMOGLOBIN 33.2 pg (27.0-31.0); MONO # 1.2 K/uL (0.0-0.8); MONO % 8.9 % (0.0-10.0); NEUT # 10.7 K/uL (1.8-7.0); NEUT % 79.8 % (50.0-75.0); NRBC % 0.1 % (0.0-0.0); PLATELET COUNT 279 K/uL (130-400); RED CELL DISTRIBUTION WIDTH 14.1 % (11.5-14.5); WHITE BLOOD COUNT 13.4 K/uL (4.8-10.8)
[2017-05-14 06:19] LABS: ABG ALLEN TEST YES; ABG MECHANICAL RATE 12; ARTERIAL BLOOD GAS HCO3 30.7 mmol/L (21-28); ARTERIAL BLOOD GAS MODE A/C; ARTERIAL BLOOD GAS O2 CAPACITY 16.2 mL/dL (16-24); ARTERIAL BLOOD GAS PO2 120 mm/Hg (80-100); ARTERIAL BLOOD HGB O2 SAT 95.9 % (95.0-98.0); ATERIAL BLOOD GAS PEEP 5; CARBOXYHEMOGLOBIN 1.3 % (0.5-1.5); METHEMOGLOBIN 1.8 % (0.0-3.0)
[2017-05-14 07:04] LABS: ALB/GLOB RATIO 0.6 (1.0-2.1); ALKALINE PHOSPHATASE 64 U/L (38-126); ALT/SGPT 69 U/L (21-72); AST/SGOT 69 U/L (17-59); BILIRUBIN,TOTAL 0.7 mg/dl (0.2-1.3); BLOOD UREA NITROGEN 8 mg/dl (9-20); CALCIUM 8.9 mg/dL (8.4-10.2); CARBON DIOXIDE 30 mmol/L (22-30); CHLORIDE 99 mmol/L (98-107); GFR AFRICAN-AMERICAN > 60; GLUCOSE,RANDOM 106 mg/dL (75-110); POTASSIUM 3.9 MMOL/L (3.6-5.0); SODIUM 135 mmol/l (132-148); TOTAL PROTEIN 5.9 G/DL (6.3-8.2)
[2017-05-14 07:51] LABS: EOSINOPHIL 2 % (0-7); NEUTROPHIL 85 % (42-75); TOTAL CELLS COUNTED 100
--- NOTE | 2017-05-14 08:53 | CP.PCM.PN ---
Subjective - Date & Time of Evaluation Date of Evaluation: 05/14/17 Time of Evaluation: 08:51 - Subjective Subjective: Surgery: Dr. Loaiza Patient remains intubated in ICU. Failed weaning trials. Objective - Vital Signs/Intake and Output Vital Signs (last 24 hours): Temp Pulse Resp BP Pulse Ox 98.9 F 80 24 149/84 98 05/14/17 04:00 05/14/17 06:00 05/14/17 06:00 05/14/17 06:00 05/14/17 06:00 Intake and Output: 05/14/17 05/14/17 06:59 18:59 Intake Total 1850 Output Total 900 Balance 950 - Medications Medications: Current Medications Acetaminophen (Tylenol 325mg Tab) 650 mg PO Q6 PRN PRN Reason: Pain, Mild (1-3) Last Admin: 05/10/17 15:55 Dose: 650 mg Acetaminophen (Tylenol 650 Mg Supp) 650 mg [place] Q6 PRN PRN Reason: Fever >100.4 F Last Admin: 05/11/17 04:50 Dose: 650 mg Albuterol/Ipratropium (Duoneb 3 Mg/0.5 Mg (3 Ml) Ud) 3 ml INH RQID [facility] Last Admin: 05/13/17 19:52 Dose: 3 ml Aspirin (Aspirin Chewable) 81 mg PO DAILY [facility] Last Admin: 05/13/17 10:10 Dose: 81 mg Atorvastatin Calcium (Lipitor) 40 mg PO DAILY [facility] Last Admin: 05/13/17 10:14 Dose: 40 mg Clopidogrel Bisulfate (Plavix) 75 mg PO DAILY [facility] Last Admin: 05/13/17 10:11 Dose: 75 mg Enalaprilat (Vasotec Iv) 1.25 mg IV Q6 [facility] Last Admin: 05/14/17 04:00 Dose: 1.25 mg Enoxaparin Sodium (Lovenox) 40 mg SC DAILY [facility] PRN Reason: Protocol Last Admin: 05/13/17 10:10 Dose: 40 mg Folic Acid (Folic Acid) 1 mg PO DAILY [facility] Last Admin: 05/13/17 10:10 Dose: 1 mg Guaifenesin (Robitussin) 100 mg PO Q6 PRN PRN Reason: Cough Vancomycin HCl 1 gm/ Sodium (Chloride) 250 mls @ 166.667 mls/hr IVPB Q12 [facility] Last Admin: 05/13/17 20:29 Dose: 166.667 mls/hr Meropenem 1 gm/ Sodium (Chloride) 100 mls @ 100 mls/hr IVPB Q8 [facility] Last Admin: 05/14/17 00:04 Dose: 100 mls/hr Potassium Chloride/Dextrose/Sod Cl (Potassium Chl 40 Meq In D5-1/2ns) 1,000 mls @ 73.529 mls/hr IV .[id number] [facility] Stop: 05/14/17 21:54 Last Admin: 05/13/17 23:30 Dose: 73.529 mls/hr Lorazepam (Ativan) 1 mg IVP Q6 PRN PRN Reason: Agitation Last Admin: 05/13/17 17:18 Dose: 1 mg Multivitamins/Vitamin C (Multi-Delyn Liquid) 5 ml PO DAILY [facility] Last Admin: 05/13/17 15:39 Dose: 5 ml Pantoprazole Sodium (Protonix Susp) 40 mg PO DAILY [facility] Last Admin: 05/13/17 10:10 Dose: 40 mg Quetiapine Fumarate (Seroquel) 25 mg PO HS [facility] Last Admin: 05/03/17 22:55 Dose: Not Given Thiamine HCl (Vitamin B1 Tab) 100 mg PO DAILY [facility] Last Admin: 05/13/17 10:11 Dose: 100 mg - Labs Labs: 05/14/17 05:30 05/14/17 05:30 PT 16.4 Seconds (9.8-13.1) H 05/10/17 04:20 INR 1.6 (0.9-1.2) H 05/10/17 04:20 - Constitutional Appears: Other (intubated, no distress) - Head Exam Head Exam: ATRAUMATIC, NORMOCEPHALIC - ENT Exam ENT Exam: Mucous Membranes Dry Additional comments: ET in place - Respiratory Exam Additional comments: PRVC mode PEEP5 FIO2 of 50% - Cardiovascular Exam Cardiovascular Exam: REGULAR RHYTHM. absent: Tachycardia Assessment and Plan - Assessment and Plan (Free Text) Assessment: 56 M with acute respiratory failure, intubated on 05/09, as well as CVA and MRSA PNA Plan: -cont ICU management -will follow, if unable to extubate will consider trach next week -further recs per attending AKWhite PGY3
[2017-05-14] MEDS: Albuterol-Ipratrop 3 mg / 0.5 (3 ml) UD INH SCH ×4 (09:10→19:40)
[2017-05-14] MEDS: Enoxaparin 40 mg Syringe SC SCH (09:51)
[2017-05-14] MEDS: Multiple Vitamins Oral Solution PO SCH (09:52)
[2017-05-14] MEDS: Pantoprazole 40 mg Susp UD PO SCH (09:53)
--- NOTE | 2017-05-14 10:29 | CP.PCM.PN ---
Subjective - Date & Time of Evaluation Date of Evaluation: 05/14/17 Time of Evaluation: 10:00 - Subjective Subjective: low grade fever yesterday - no fever so far today Remains intubated on Mech Vent PRVC/AC 50% FiO2 Tolerating tube feeding agitated this an requiring Ativan Family at bedside - updated on pt's condition, treatment plan Objective - Vital Signs/Intake and Output Vital Signs (last 24 hours): Temp Pulse Resp BP Pulse Ox 99.0 F 90 32 H 183/107 H 100 05/14/17 08:00 05/14/17 10:00 05/14/17 10:00 05/14/17 10:00 05/14/17 10:00 Intake and Output: 05/14/17 05/14/17 06:59 18:59 Intake Total 1850 450 Output Total 900 Balance 950 450 - Medications Medications: Current Medications Acetaminophen (Tylenol 325mg Tab) 650 mg PO Q6 PRN PRN Reason: Pain, Mild (1-3) Last Admin: 05/10/17 15:55 Dose: 650 mg Acetaminophen (Tylenol 650 Mg Supp) 650 mg [place] Q6 PRN PRN Reason: Fever >100.4 F Last Admin: 05/11/17 04:50 Dose: 650 mg Albuterol/Ipratropium (Duoneb 3 Mg/0.5 Mg (3 Ml) Ud) 3 ml INH RQID [facility] Last Admin: 05/14/17 09:10 Dose: 3 ml Aspirin (Aspirin Chewable) 81 mg PO DAILY [facility] Last Admin: 05/14/17 09:48 Dose: 81 mg Atorvastatin Calcium (Lipitor) 40 mg PO DAILY [facility] Last Admin: 05/14/17 09:51 Dose: 40 mg Clopidogrel Bisulfate (Plavix) 75 mg PO DAILY [facility] Last Admin: 05/14/17 09:52 Dose: 75 mg Enalaprilat (Vasotec Iv) 1.25 mg IV Q6 [facility] Last Admin: 05/14/17 09:54 Dose: 1.25 mg Enoxaparin Sodium (Lovenox) 40 mg SC DAILY [facility] PRN Reason: Protocol Last Admin: 05/14/17 09:51 Dose: 40 mg Folic Acid (Folic Acid) 1 mg PO DAILY [facility] Last Admin: 05/14/17 09:51 Dose: 1 mg Guaifenesin (Robitussin) 100 mg PO Q6 PRN PRN Reason: Cough Vancomycin HCl 1 gm/ Sodium (Chloride) 250 mls @ 166.667 mls/hr IVPB Q12 [facility] Last Admin: 05/14/17 09:53 Dose: 166.667 mls/hr Meropenem 1 gm/ Sodium (Chloride) 100 mls @ 100 mls/hr IVPB Q8 [facility] Last Admin: 05/14/17 09:51 Dose: 100 mls/hr Potassium Chloride/Dextrose/Sod Cl (Potassium Chl 40 Meq In D5-1/2ns) 1,000 mls @ 73.529 mls/hr IV .[id number] [facility] Stop: 05/14/17 21:54 Last Admin: 05/13/17 23:30 Dose: 73.529 mls/hr Lorazepam (Ativan) 1 mg IVP Q6 PRN PRN Reason: Agitation Last Admin: 05/14/17 09:50 Dose: 1 mg Multivitamins/Vitamin C (Multi-Delyn Liquid) 5 ml PO DAILY [facility] Last Admin: 05/14/17 09:52 Dose: 5 ml Pantoprazole Sodium (Protonix Susp) 40 mg PO DAILY [facility] Last Admin: 05/14/17 09:53 Dose: 40 mg Quetiapine Fumarate (Seroquel) 25 mg PO HS [facility] Last Admin: 05/03/17 22:55 Dose: Not Given Thiamine HCl (Vitamin B1 Tab) 100 mg PO DAILY [facility] Last Admin: 05/14/17 09:54 Dose: 100 mg - Labs Labs: 05/14/17 05:30 05/14/17 05:30 PT 16.4 Seconds (9.8-13.1) H 05/10/17 04:20 INR 1.6 (0.9-1.2) H 05/10/17 04:20 - Constitutional Appears: Older Than Stated Age, Chronically Ill, Other (Intubated) - Head Exam Head Exam: NORMOCEPHALIC - Eye Exam Eye Exam: Normal appearance - ENT Exam ENT Exam: Mucous Membranes Dry, Normal External Ear Exam - Neck Exam Neck Exam: absent: Meningismus - Respiratory Exam Respiratory Exam: Rales, Rhonchi Additional comments: [facility] - Cardiovascular Exam Cardiovascular Exam: REGULAR RHYTHM, +S1, +S2 - GI/Abdominal Exam GI & Abdominal Exam: Soft, Normal Bowel Sounds. absent: Tenderness - Extremities Exam Extremities Exam: Normal Capillary Refill. absent: Pedal Edema - Neurological Exam Neuro motor strength exam: Left Upper Extremity: 1, Left Lower Extremity: 0 Additional comments: Intubated opens eyes to verbal stimuli moves RUE and RLE follows simple commands - Skin Skin Exam: Dry, Normal Color, Warm Assessment and Plan - Assessment and Plan (Free Text) Assessment: 56 y/o homeless male with PMHx significant for HTN, anemia, and EtOH abuse presented to ER with multiple falls with minor head trauma. He stated that he had been feeling 'off balance' and falling more over the past several days. He denied EtOH associated with these falls. Denied any focal weakness, but felt like both his feet were numb (this is ongoing, not new) and also c/o back pain (also chronic); he also felt off balance more lately as well. CT head in ER showed Multiple bilateral lacunar infarcts and severe cortical atrophy. Patient admitted in telemetry for close monitoring. MRI head showed acute right MCA stroke Patient started on ASa, lovenox and statin. Neurology and PT consulted He developed DT-s and was started on gabapentin 300 mg PO TID , Seroquel and Ativan PRN Patient became more lethargic with dyarthria, dysphagia, left facial droop and left side weakness. Repeat MRI of the head showed : Findings compatible with the known recent right basal ganglia infarct. No new areas of infarction seen. No MR evidence of associated hemorrhage. He developed acute hypoxemic respiratory failure on 05/09 likely due to Aspiration PNA, was intubated and transferred to ICU. 1. Acute Respiratory failure with Hypoxia sec to Aspiration Pneumonia Still intubated on MV PRVC/AC mode 12/450/5/50 % with thick yellowish respiratory secretions requiring frequent suctioning Sputum cultures growing MRSA and Serratia Marcescen CXR showed left upper, middle and lower lobe infiltrates--improving WBC trended down 12 , febrile ID consult with Dr. Fritz appreciated and recommended IV Meropenem and Vanco keep head of the bed elevated frequent suctioning and aspiration precautions continue Tube feeding per NGT GI consulted for peg placement - plan for PEG once more stable Pulmonary consult- Dr Garrison apreciated Surgery was consulted for possible Trach placement if unable to extubate- discussed with family 2. Acute Ischemic stroke lethargic with dysarthria, dysphagia, left facial droop and left side hemiparesis MRI of the head 04/28 : 1. Acute right MCA territory infarction involving the right narayanan radiata and basal ganglia. 2. Severe chronic microangiopathic changes and mild age-related global parenchymal volume loss. Repeat MRI 05/04 showed known recent basal ganglia infarct no acute changes CTA neck showed no Blood clot , carotid doppler showed no stenosis Echo showed normal EF and wall motion Neurology consult appreciated Repeat CT head showed no hemorrhagic conversion Continue ASA, statin ,Plavix keep head of the bed elevated . EEG: No epileptiform activity PT consulted . He will need YEHUDA placement for physical therapy once stable Will need PEG placement once more stable 3.ETOH withdrawal/ Delirium tremens-- resolved but now lethargic due to CVA patient was tachycardic, tremulous, confused with visual hallucinations on admission was initially Started on librium tapering dose-- discontinued due to sedation discussed with neurology who recommended to start patient on gabapentin and Seroquel HS that were discontinued due to lethargy Continue thiamine, folic acid, MVI, Seizure precautions Ativan prn 4. HTN uncontrolled Enalapril 1.25 mg IV Q6 prn Infarct has been 1 wk now - will start antihypertensives start Metoprolol 25mg bid 5.Thrombocytopenia- improved most likely chronic secondary to ETOH abuse 6.Hypokalemia replace and monitor IVF with [id number] check Mg 7. Hyponatremia prob sec to hypotonic IV soln change IV to NS hold off on free water for now 8.DVT PPx Lovenox
[2017-05-14] MEDS ORDERED: Potassium Chloride 20 mEq/15 ml LIQ UD PO ONE (12:30)
[2017-05-14] MEDS: KCL 40MEQ/NS 1L 1,000 ML IV SCH (13:54)
--- NOTE | 2017-05-14 15:23 | CP.PCM.PN ---
Subjective - Date & Time of Evaluation Date of Evaluation: 05/14/17 Time of Evaluation: 12:20 - Subjective Subjective: F/U Respiratory Failure. Pt intubated Objective - Vital Signs/Intake and Output Vital Signs (last 24 hours): Temp Pulse Resp BP Pulse Ox 97.6 F 69 17 161/94 H 100 05/14/17 12:00 05/14/17 13:56 05/14/17 12:00 05/14/17 13:56 05/14/17 12:00 Intake and Output: 05/14/17 05/14/17 06:59 18:59 Intake Total 1850 450 Output Total 900 Balance 950 450 - Medications Medications: Current Medications Acetaminophen (Tylenol 325mg Tab) 650 mg PO Q6 PRN PRN Reason: Pain, Mild (1-3) Last Admin: 05/10/17 15:55 Dose: 650 mg Acetaminophen (Tylenol 650 Mg Supp) [address] Q6 PRN PRN Reason: Fever >100.4 F Last Admin: 05/11/17 04:50 Dose: 650 mg Albuterol/Ipratropium (Duoneb 3 Mg/0.5 Mg (3 Ml) Ud) 3 ml INH RQID [facility] Last Admin: 05/14/17 11:37 Dose: 3 ml Aspirin (Aspirin Chewable) 81 mg PO DAILY [facility] Last Admin: 05/14/17 09:48 Dose: 81 mg Atorvastatin Calcium (Lipitor) 40 mg PO DAILY [facility] Last Admin: 05/14/17 09:51 Dose: 40 mg Clopidogrel Bisulfate (Plavix) 75 mg PO DAILY [facility] Last Admin: 05/14/17 09:52 Dose: 75 mg Enalaprilat (Vasotec Iv) 1.25 mg IV Q6 [facility] Last Admin: 05/14/17 09:54 Dose: 1.25 mg Enoxaparin Sodium (Lovenox) 40 mg SC DAILY [facility] PRN Reason: Protocol Last Admin: 05/14/17 09:51 Dose: 40 mg Folic Acid (Folic Acid) 1 mg PO DAILY [facility] Last Admin: 05/14/17 09:51 Dose: 1 mg Guaifenesin (Robitussin) 100 mg PO Q6 PRN PRN Reason: Cough Vancomycin HCl 1 gm/ Sodium (Chloride) 250 mls @ 166.667 mls/hr IVPB Q12 [facility] Last Admin: 05/14/17 09:53 Dose: 166.667 mls/hr Meropenem 1 gm/ Sodium (Chloride) 100 mls @ 100 mls/hr IVPB Q8 [facility] Last Admin: 05/14/17 09:51 Dose: 100 mls/hr Oral Electrolytes (Kcl 40meq/ 0.9% 1l) 1,000 mls @ 73.529 mls/hr IV .[id number] [facility] Stop: 05/15/17 10:58 Last Admin: 05/14/17 13:54 Dose: 73.529 mls/hr Lisinopril (Zestril) 10 mg PO DAILY [facility] Last Admin: 05/14/17 13:56 Dose: 10 mg Lorazepam (Ativan) 1 mg IVP Q6 PRN PRN Reason: Agitation Last Admin: 05/14/17 09:50 Dose: 1 mg Metoprolol Tartrate (Lopressor) 25 mg PO Q12 [facility] Last Admin: 05/14/17 12:21 Dose: 25 mg Multivitamins/Vitamin C (Multi-Delyn Liquid) 5 ml PO DAILY [facility] Last Admin: 05/14/17 09:52 Dose: 5 ml Pantoprazole Sodium (Protonix Susp) 40 mg PO DAILY [facility] Last Admin: 05/14/17 09:53 Dose: 40 mg Quetiapine Fumarate (Seroquel) 25 mg PO HS [facility] Last Admin: 05/03/17 22:55 Dose: Not Given Thiamine HCl (Vitamin B1 Tab) 100 mg PO DAILY [facility] Last Admin: 05/14/17 09:54 Dose: 100 mg - Labs Labs: 05/14/17 05:30 05/14/17 05:30 PT 16.4 Seconds (9.8-13.1) H 05/10/17 04:20 INR 1.6 (0.9-1.2) H 05/10/17 04:20 - Constitutional Appears: Chronically Ill - Head Exam Head Exam: NORMAL INSPECTION - Eye Exam Eye Exam: PERRL - ENT Exam Additional comments: Intubated - Neck Exam Neck Exam: Normal Inspection - Respiratory Exam Respiratory Exam: Decreased Breath Sounds (at bases L>R), Rhonchi (scattered) - Cardiovascular Exam Cardiovascular Exam: REGULAR RHYTHM - GI/Abdominal Exam GI & Abdominal Exam: Soft, Normal Bowel Sounds - Extremities Exam Extremities Exam: absent: Pedal Edema - Back Exam Back Exam: NORMAL INSPECTION - Neurological Exam Additional comments: Open eyes to verbal stimuli, moves RUE, RLE. - Psychiatric Exam Additional comments: Sedated - Skin Skin Exam: Warm Assessment and Plan (1) Acute respiratory failure Status: Acute (2) MRSA pneumonia Status: Acute (3) Acute right MCA stroke Status: Acute - Assessment and Plan (Free Text) Plan: L lung opacification, Bronchoscopy in AM, continue Vanco and rest of Tx. ICU Time: 40 min.
--- NOTE | 2017-05-15 01:01 | PN ---
CRITICAL CARE PROGRESS NOTE DATE: SUBJECTIVE: The patient is seen and evaluated at the bedside. Events since admission reviewed. A 56-year-old male admitted to ICU for respiratory failure status post CVA. Past medical history is significant for hypertension, anemia, ETOH abuse, and homeless. Overnight, telemetry sinus rhythm, low grade temperature, normotensive, intubated on mechanical ventilation on AC/PRVC rate 12, tidal volume 450, FiO2 of 50% saturating 100%, peak airway pressure 23, mean airway pressure 11 and tidal CO2 of 24, exhale tidal volume 590, exhale rate 14, remains some lethargic, but arousable. PHYSICAL EXAMINATION VITAL SIGNS: Temperature 97.6, heart rate 86, blood pressure 143 to 161/81 to 94. HEAD, EYES, EARS, NOSE, AND THROAT: Pupils are reactive. Conjunctivae pink. Sclerae white. NECK: Supple. CHEST: Bilateral breath sounds, clear to auscultation. HEART: Rhythm regular. S1 and S2 normal intensity. ABDOMEN: Bowel sounds present and soft. Liver and spleen not palpable. Bladder is nondistended. EXTREMITIES: Trace edema. NEUROLOGIC: Left hemiplegia. CURRENT MEDICATIONS: Include Tylenol 650 q. 6 hours p.r.n., albuterol/Atrovent inhalation 3 mL q.i.d., aspirin 81 mg daily, Lipitor 40 mg daily, Plavix 75 mg daily, Vasotec 1.25 mg IV q. 6 hours, Lovenox 40 subcutaneous on hold, folic acid 1 mg p.o. daily, guaifenesin 100 mg p.o. q. 6 hours, Zestril 10 mg p.o. daily, lorazepam 1 mg IV q. 6 hours p.r.n., magnesium sulfate 1 g x1, meropenem 1 g q. 8 hours, Lopressor 25 mg p.o. q. 12 hours, multivitamins liquid 5 mL p.o. daily, KCl 40 mEq in one liter saline at 73 mL per hour, Protonix 40 mg p.o. daily, Seroquel 25 mg p.o. daily. IMPRESSION: 1. Neuro: Status post right middle cerebral artery, subacute infarct with left hemiparesis. 2. Pulmonary: Acute hypoxic respiratory failure, suspected aspiration pneumonia, sputum culture methicillin-resistant Staphylococcus aureus and Serratia marcescens, on IV antibiotics. 3. Cardiac: Normotensive. Normal sinus rhythm. 4. Gastrointestinal: History of ETOH abuse and ETOH related falls. 5. Hematology. Leukocytosis secondary to suspected aspiration pneumonia. Anemia of chronic disease. 6. Renal: BUN and creatinine 8 and 0.4. 7. Keep head of bed 30 degree up, not ready for weaning today as the patient is noted to desaturate becoming tachypneic on reducing the vent support. Maintain blood sugar less than 180. Deep venous thrombosis and gastrointestinal prophylaxis. Tima Mart MD
[2017-05-15] MEDS ORDERED: Albuterol-Ipratrop 3 mg / 0.5 (3 ml) UD INH STA (01:44)
[2017-05-15] MEDS: Meropenem 1 GM in Sodium Chloride 0.9% 100 ML IVPB SCH ×3 (01:50→16:34)
[2017-05-15 05:26] LABS: ABG ALLEN TEST YES; ABG MECHANICAL RATE 12; ARTERIAL BLOOD GAS HCO3 30.4 mmol/L (21-28); ARTERIAL BLOOD GAS MODE PRVC/AC; ARTERIAL BLOOD GAS O2 CAPACITY 17.4 mL/dL (16-24); ARTERIAL BLOOD GAS O2 CONTENT 17.2 ML/dL (15-23); ARTERIAL BLOOD GAS PH 7.43 (7.35-7.45); ARTERIAL BLOOD GAS PO2 139 mm/Hg (80-100); ARTERIAL BLOOD HGB O2 SAT 96.3 % (95.0-98.0); ATERIAL BLOOD GAS PEEP 5; CARBOXYHEMOGLOBIN 1.3 % (0.5-1.5); HHB 0.9 % (0.0-5.0); METHEMOGLOBIN 1.5 % (0.0-3.0)
[2017-05-15] MEDS: EnalaprilAT 1.25 mg/ml Inj IV SCH ×4 (05:30→21:40)
[2017-05-15 06:26] LABS: BASO # 0.2 K/uL (0.0-0.2); BASO % 1.3 % (0.0-2.0); EOS # 0.5 K/uL (0.0-0.7); EOS % 3.4 % (0.0-4.0); HEMATOCRIT 36.9 % (35.0-51.0); LYMPH # 1.2 K/uL (1.0-4.3); LYMPH % 8.6 % (20.0-40.0); MEAN CELL VOLUME 100.6 fl (80.0-94.0); MEAN CORPUSCULAR HEMOGLOBIN 33.4 pg (27.0-31.0); MEAN CORPUSCULAR HGB CONC 33.2 g/dL (33.0-37.0); MEAN PLATELET VOLUME 7.8 fl (7.2-11.7); MONO # 1.3 K/uL (0.0-0.8); MONO % 8.8 % (0.0-10.0); NEUT # 11.1 K/uL (1.8-7.0); NEUT % 77.9 % (50.0-75.0); RED CELL DISTRIBUTION WIDTH 14.1 % (11.5-14.5); WHITE BLOOD COUNT 14.3 K/uL (4.8-10.8)
[2017-05-15 06:34] LABS: BLOOD UREA NITROGEN 9 mg/dl (9-20); CALCIUM 8.9 mg/dL (8.4-10.2); CARBON DIOXIDE 29 mmol/L (22-30); CHLORIDE 97 mmol/L (98-107); GFR AFRICAN-AMERICAN > 60; GLUCOSE,RANDOM 105 mg/dL (75-110); POTASSIUM 4.3 MMOL/L (3.6-5.0); SODIUM 133 mmol/l (132-148)
--- NOTE | 2017-05-15 07:36 | CP.PCM.PN ---
Subjective - Date & Time of Evaluation Date of Evaluation: 05/15/17 Time of Evaluation: 07:34 - Subjective Subjective: Surgery: Dr. Loaiza Patient remains intubated in ICU. Nurse reports restless overnight requiring Ativan but otherwise no acute events noted. Objective - Vital Signs/Intake and Output Vital Signs (last 24 hours): Temp Pulse Resp BP Pulse Ox 98.5 F 73 26 H 174/90 H 98 05/15/17 06:00 05/15/17 06:00 05/15/17 06:00 05/15/17 06:00 05/15/17 06:00 Intake and Output: 05/15/17 05/15/17 06:59 18:59 Intake Total 1150 Output Total 1000 Balance 150 - Medications Medications: Current Medications Acetaminophen (Tylenol 325mg Tab) 650 mg PO Q6 PRN PRN Reason: Pain, Mild (1-3) Last Admin: 05/10/17 15:55 Dose: 650 mg Acetaminophen (Tylenol 650 Mg Supp) [address] Q6 PRN PRN Reason: Fever >100.4 F Last Admin: 05/11/17 04:50 Dose: 650 mg Albuterol/Ipratropium (Duoneb 3 Mg/0.5 Mg (3 Ml) Ud) 3 ml INH RQID [facility] Last Admin: 05/14/17 19:40 Dose: 3 ml Aspirin (Aspirin Chewable) 81 mg PO DAILY [facility] Last Admin: 05/14/17 09:48 Dose: 81 mg Atorvastatin Calcium (Lipitor) 40 mg PO DAILY [facility] Last Admin: 05/14/17 09:51 Dose: 40 mg Clopidogrel Bisulfate (Plavix) 75 mg PO DAILY [facility] Last Admin: 05/14/17 09:52 Dose: 75 mg Enalaprilat (Vasotec Iv) 1.25 mg IV Q6 [facility] Last Admin: 05/15/17 05:30 Dose: 1.25 mg Enoxaparin Sodium (Lovenox) 40 mg SC DAILY [facility] PRN Reason: Protocol Last Admin: 05/14/17 09:51 Dose: 40 mg Folic Acid (Folic Acid) 1 mg PO DAILY [facility] Last Admin: 05/14/17 09:51 Dose: 1 mg Guaifenesin (Robitussin) 100 mg PO Q6 PRN PRN Reason: Cough Vancomycin HCl 1 gm/ Sodium (Chloride) 250 mls @ 166.667 mls/hr IVPB Q12 [facility] Last Admin: 05/14/17 20:12 Dose: 166.667 mls/hr Meropenem 1 gm/ Sodium (Chloride) 100 mls @ 100 mls/hr IVPB Q8 [facility] Last Admin: 05/15/17 01:50 Dose: 100 mls/hr Oral Electrolytes (Kcl 40meq/ 0.9% 1l) 1,000 mls @ 73.529 mls/hr IV .[id number] [facility] Stop: 05/15/17 10:58 Last Admin: 05/14/17 13:54 Dose: 73.529 mls/hr Lisinopril (Zestril) 10 mg PO DAILY [facility] Last Admin: 05/14/17 13:56 Dose: 10 mg Lorazepam (Ativan) 1 mg IVP Q6 PRN PRN Reason: Agitation Last Admin: 05/15/17 07:05 Dose: 1 mg Metoprolol Tartrate (Lopressor) 25 mg PO Q12 [facility] Last Admin: 05/14/17 20:12 Dose: 25 mg Multivitamins/Vitamin C (Multi-Delyn Liquid) 5 ml PO DAILY [facility] Last Admin: 05/14/17 09:52 Dose: 5 ml Pantoprazole Sodium (Protonix Susp) 40 mg PO DAILY [facility] Last Admin: 05/14/17 09:53 Dose: 40 mg Quetiapine Fumarate (Seroquel) 25 mg PO HS [facility] Last Admin: 05/03/17 22:55 Dose: Not Given Thiamine HCl (Vitamin B1 Tab) 100 mg PO DAILY [facility] Last Admin: 05/14/17 09:54 Dose: 100 mg - Labs Labs: 05/15/17 05:30 05/15/17 05:30 PT 16.4 Seconds (9.8-13.1) H 05/10/17 04:20 INR 1.6 (0.9-1.2) H 05/10/17 04:20 - Constitutional Appears: No Acute Distress - Head Exam Head Exam: ATRAUMATIC, NORMOCEPHALIC - ENT Exam Additional comments: ET tube in place - Respiratory Exam Respiratory Exam: absent: Respiratory Distress Additional comments: on mechanical vent: RR12 TV 450 FIO2 of 50% PEEP 5 Assessment and Plan - Assessment and Plan (Free Text) Assessment: 56 M with acute respiratory failure, intubated on 05/09, as well as CVA and MRSA PNA Plan: -cont ICU management -will follow, if unable to extubate will consider trach next week -further recs per attending AKWhite PGY3
[2017-05-15] MEDS: Albuterol-Ipratrop 3 mg / 0.5 (3 ml) UD INH SCH ×4 (07:46→19:36)
[2017-05-15] MEDS: KCL 40MEQ/NS 1L 1,000 ML IV SCH (08:36)
--- NOTE | 2017-05-15 09:28 | CP.PCM.PN ---
Subjective - Date & Time of Evaluation Date of Evaluation: 05/15/17 Time of Evaluation: 09:45 - Subjective Subjective: Plan for Bedside Bronchoscopy today by DR Garrison Tube feeding held and ASA, Plavix and Lovenox held Remains intubated on Mech Vent PRVC/AC Afebrile x 36 hrs however with persistent leukocytosis Opens eyes to tactile stimuli, follws simple commands Has left hemiparesis Objective - Vital Signs/Intake and Output Vital Signs (last 24 hours): Temp Pulse Resp BP Pulse Ox 99 F 78 15 138/81 100 05/15/17 08:00 05/15/17 08:00 05/15/17 08:00 05/15/17 08:00 05/15/17 08:00 Intake and Output: 05/15/17 05/15/17 06:59 18:59 Intake Total 1150 Output Total 1000 Balance 150 - Medications Medications: Current Medications Acetaminophen (Tylenol 325mg Tab) 650 mg PO Q6 PRN PRN Reason: Pain, Mild (1-3) Last Admin: 05/10/17 15:55 Dose: 650 mg Acetaminophen (Tylenol 650 Mg Supp) 650 mg MS Q6 PRN PRN Reason: Fever >100.4 F Last Admin: 05/11/17 04:50 Dose: 650 mg Albuterol/Ipratropium (Duoneb 3 Mg/0.5 Mg (3 Ml) Ud) 3 ml INH RQID [facility] Last Admin: 05/15/17 07:46 Dose: 3 ml Aspirin (Aspirin Chewable) 81 mg PO DAILY [facility] Last Admin: 05/14/17 09:48 Dose: 81 mg Atorvastatin Calcium (Lipitor) 40 mg PO DAILY [facility] Last Admin: 05/14/17 09:51 Dose: 40 mg Clopidogrel Bisulfate (Plavix) 75 mg PO DAILY [facility] Last Admin: 05/14/17 09:52 Dose: 75 mg Enalaprilat (Vasotec Iv) 1.25 mg IV Q6 [facility] Last Admin: 05/15/17 05:30 Dose: 1.25 mg Enoxaparin Sodium (Lovenox) 40 mg SC DAILY [facility] PRN Reason: Protocol Last Admin: 05/14/17 09:51 Dose: 40 mg Folic Acid (Folic Acid) 1 mg PO DAILY [facility] Last Admin: 05/14/17 09:51 Dose: 1 mg Guaifenesin (Robitussin) 100 mg PO Q6 PRN PRN Reason: Cough Vancomycin HCl 1 gm/ Sodium (Chloride) 250 mls @ 166.667 mls/hr IVPB Q12 [facility] Last Admin: 05/14/17 20:12 Dose: 166.667 mls/hr Meropenem 1 gm/ Sodium (Chloride) 100 mls @ 100 mls/hr IVPB Q8 [facility] Last Admin: 05/15/17 08:37 Dose: 100 mls/hr Oral Electrolytes (Kcl 40meq/ 0.9% 1l) 1,000 mls @ 73.529 mls/hr IV .[id number] [facility] Stop: 05/15/17 10:58 Last Admin: 05/15/17 08:36 Dose: 73.529 mls/hr Lisinopril (Zestril) 10 mg PO DAILY [facility] Last Admin: 05/14/17 13:56 Dose: 10 mg Lorazepam (Ativan) 1 mg IVP Q6 PRN PRN Reason: Agitation Last Admin: 05/15/17 07:05 Dose: 1 mg Metoprolol Tartrate (Lopressor) 25 mg PO Q12 [facility] Last Admin: 05/14/17 20:12 Dose: 25 mg Multivitamins/Vitamin C (Multi-Delyn Liquid) 5 ml PO DAILY [facility] Last Admin: 05/14/17 09:52 Dose: 5 ml Pantoprazole Sodium (Protonix Susp) 40 mg PO DAILY [facility] Last Admin: 05/14/17 09:53 Dose: 40 mg Quetiapine Fumarate (Seroquel) 25 mg PO HS [facility] Last Admin: 05/03/17 22:55 Dose: Not Given Thiamine HCl (Vitamin B1 Tab) 100 mg PO DAILY [facility] Last Admin: 05/14/17 09:54 Dose: 100 mg - Labs Labs: 05/15/17 05:30 05/15/17 05:30 PT 16.4 Seconds (9.8-13.1) H 05/10/17 04:20 INR 1.6 (0.9-1.2) H 05/10/17 04:20 - Constitutional Appears: Older Than Stated Age, Chronically Ill, Other (Intubated) - Head Exam Head Exam: NORMOCEPHALIC - Eye Exam Eye Exam: Normal appearance - ENT Exam ENT Exam: Mucous Membranes Dry, Normal External Ear Exam - Neck Exam Neck Exam: absent: Meningismus - Respiratory Exam Respiratory Exam: Rales, Rhonchi Additional comments: Pt is intubated on Mech Vent - Cardiovascular Exam Cardiovascular Exam: REGULAR RHYTHM, +S1, +S2 - GI/Abdominal Exam GI & Abdominal Exam: Soft, Normal Bowel Sounds. absent: Tenderness - Extremities Exam Extremities Exam: Normal Capillary Refill. absent: Pedal Edema - Neurological Exam Neuro motor strength exam: Left Upper Extremity: 0, Left Lower Extremity: 0 Additional comments: Intubated opens eyes to verbal stimuli moves RUE and RLE, left hemiparesis follows simple commands - Skin Skin Exam: Dry, Normal Color, Warm Assessment and Plan - Assessment and Plan (Free Text) Assessment: 56 y/o homeless male with PMHx significant for HTN, anemia, and EtOH abuse presented to ER with multiple falls with minor head trauma. He stated that he had been feeling 'off balance' and falling more over the past several days. He denied EtOH associated with these falls. Denied any focal weakness, but felt like both his feet were numb (this is ongoing, not new) and also c/o back pain (also chronic); he also felt off balance more lately as well. CT head in ER showed Multiple bilateral lacunar infarcts and severe cortical atrophy. Patient admitted in telemetry for close monitoring. MRI head showed acute right MCA stroke Patient started on ASa, lovenox and statin. Neurology and PT consulted He developed DT-s and was started on gabapentin 300 mg PO TID , Seroquel and Ativan PRN Patient became more lethargic with dyarthria, dysphagia, left facial droop and left side weakness. Repeat MRI of the head showed : Findings compatible with the known recent right basal ganglia infarct. No new areas of infarction seen. No MR evidence of associated hemorrhage. He developed acute hypoxemic respiratory failure on 05/09 likely due to Aspiration PNA, was intubated and transferred to ICU. 1. Acute Respiratory failure with Hypoxia sec to Aspiration Pneumonia Still intubated on MV PRVC/AC mode 12/450/5/50 % with thick yellowish respiratory secretions requiring frequent suctioning Sputum cultures growing MRSA and Serratia Marcescen CXR showed left upper, middle and lower lobe infiltrates--improving WBC trended down 12 , febrile ID consult with Dr. Fritz appreciated and recommended IV Meropenem and Vanco keep head of the bed elevated frequent suctioning and aspiration precautions continue Tube feeding per NGT GI consulted for peg placement - plan for PEG once more stable Pulmonary consult- Dr Garrison - Plan for Bedside Bronchoscopy today Surgery was consulted for possible Trach placement if unable to extubate- discussed with family 2. Acute Ischemic stroke lethargic with dysarthria, dysphagia, left facial droop and left side hemiparesis MRI of the head 04/28 : 1. Acute right MCA territory infarction involving the right narayanan radiata and basal ganglia. 2. Severe chronic microangiopathic changes and mild age-related global parenchymal volume loss. Repeat MRI 05/04 showed known recent basal ganglia infarct no acute changes CTA neck showed no Blood clot , carotid doppler showed no stenosis Echo showed normal EF and wall motion Neurology consult appreciated Repeat CT head showed no hemorrhagic conversion Continue ASA, statin ,Plavix keep head of the bed elevated . EEG: No epileptiform activity PT consulted . He will need YEHUDA placement for physical therapy once stable Will need PEG placement once more stable 3.ETOH withdrawal/ Delirium tremens-- resolved but now lethargic due to CVA patient was tachycardic, tremulous, confused with visual hallucinations on admission was initially Started on librium tapering dose-- discontinued due to sedation discussed with neurology who recommended to start patient on gabapentin and Seroquel HS that were discontinued due to lethargy Continue thiamine, folic acid, MVI, Seizure precautions Ativan prn 4. HTN uncontrolled Enalapril 1.25 mg IV Q6 prn Infarct has been 1 wk now - will start antihypertensives started Clonidine - will help with the HTN and withdrawal sxs 5.Thrombocytopenia- improved most likely chronic secondary to ETOH abuse 6.Hypokalemia, resolved IVF with [id number] 7. DVT PPx Lovenox
[2017-05-15 10:48] LABS: PARTIAL THROMBOPLASTIN TIME 34.9 Seconds (25.6-37.1)
--- NOTE | 2017-05-15 10:51 | RAD ---
PROCEDURE: CHEST RADIOGRAPH, 1 VIEW HISTORY: pt intubated COMPARISON: Comparison chest dated 05/13/2017 FINDINGS: In situ ETT, tip of which lies approximately 4.47 cm above the gavino. NGT is present, tip of which has not been included on this film though distal aspect does lie well below EG junction. LUNGS: Interval improvement previously noted near complete opacification left riley thorax. Patchy infiltrate changes throughout the left lung remain. Slight volume loss left riley thorax. Right lung appears hyperinflated. Rule out chronic changes of emphysema or COPD PLEURA: No pneumothorax or pleural fluid seen. CARDIOVASCULAR: Mild mediastinal shift from right to left OSSEOUS STRUCTURES: No significant abnormalities. VISUALIZED UPPER ABDOMEN: Normal. OTHER FINDINGS: None. IMPRESSION: ETT and NGT as above. Interval improvement previously noted near complete opacification left riley thorax. Patchy infiltrate changes throughout the left lung remain. Slight volume loss left riley thorax. Right lung appears hyperinflated. Rule out chronic changes of emphysema or COPD
[2017-05-15] MEDS: Pantoprazole 40 mg Susp UD PO SCH (13:46)
[2017-05-15] MEDS: Multiple Vitamins Oral Solution PO SCH (13:47)
--- NOTE | 2017-05-15 14:28 | CP.PCM.PN ---
Subjective - Date & Time of Evaluation Date of Evaluation: 05/15/17 Time of Evaluation: 12:00 - Subjective Subjective: F/U Respiratory Failure. Pt wit minimal response to tactile stimuli, intubated. Objective - Vital Signs/Intake and Output Vital Signs (last 24 hours): Temp Pulse Resp BP Pulse Ox 99.4 F 77 19 161/86 H 100 05/15/17 12:00 05/15/17 14:00 05/15/17 14:00 05/15/17 14:00 05/15/17 14:00 Intake and Output: 05/15/17 05/15/17 06:59 18:59 Intake Total 1150 500 Output Total 1000 Balance 150 500 - Medications Medications: Current Medications Acetaminophen (Tylenol 325mg Tab) 650 mg PO Q6 PRN PRN Reason: Pain, Mild (1-3) Last Admin: 05/15/17 13:46 Dose: 650 mg Acetaminophen (Tylenol 650 Mg Supp) 650 mg MS Q6 PRN PRN Reason: Fever >100.4 F Last Admin: 05/11/17 04:50 Dose: 650 mg Albuterol/Ipratropium (Duoneb 3 Mg/0.5 Mg (3 Ml) Ud) 3 ml INH RQID [facility] Last Admin: 05/15/17 11:19 Dose: 3 ml Aspirin (Aspirin Chewable) 81 mg PO DAILY [facility] Last Admin: 05/14/17 09:48 Dose: 81 mg Atorvastatin Calcium (Lipitor) 40 mg PO DAILY [facility] Last Admin: 05/15/17 13:48 Dose: 40 mg Clonidine HCl (Catapres) 0.1 mg PO BID [facility] Clopidogrel Bisulfate (Plavix) 75 mg PO DAILY [facility] Last Admin: 05/14/17 09:52 Dose: 75 mg Enalaprilat (Vasotec Iv) 1.25 mg IV Q6 [facility] Last Admin: 05/15/17 09:47 Dose: 1.25 mg Enoxaparin Sodium (Lovenox) 40 mg SC DAILY [facility] PRN Reason: Protocol Last Admin: 05/14/17 09:51 Dose: 40 mg Folic Acid (Folic Acid) 1 mg PO DAILY [facility] Last Admin: 05/15/17 13:45 Dose: 1 mg Guaifenesin (Robitussin) 100 mg PO Q6 PRN PRN Reason: Cough Vancomycin HCl 1 gm/ Sodium (Chloride) 250 mls @ 166.667 mls/hr IVPB Q12 [facility] Last Admin: 05/15/17 09:42 Dose: 166.667 mls/hr Meropenem 1 gm/ Sodium (Chloride) 100 mls @ 100 mls/hr IVPB Q8 [facility] Last Admin: 05/15/17 08:37 Dose: 100 mls/hr Lorazepam (Ativan) 1 mg IVP Q6 PRN PRN Reason: Agitation Last Admin: 05/15/17 13:34 Dose: 1 mg Multivitamins/Vitamin C (Multi-Delyn Liquid) 5 ml PO DAILY [facility] Last Admin: 05/15/17 13:47 Dose: 5 ml Pantoprazole Sodium (Protonix Susp) 40 mg PO DAILY [facility] Last Admin: 05/15/17 13:46 Dose: 40 mg Quetiapine Fumarate (Seroquel) 25 mg PO HS [facility] Last Admin: 05/03/17 22:55 Dose: Not Given Thiamine HCl (Vitamin B1 Tab) 100 mg PO DAILY [facility] Last Admin: 05/15/17 13:46 Dose: 100 mg - Labs Labs: 05/15/17 05:30 05/15/17 05:30 PT 13.8 Seconds (9.8-13.1) H 05/15/17 10:20 INR 1.3 (0.9-1.2) H 05/15/17 10:20 APTT 34.9 Seconds (25.6-37.1) 05/15/17 10:20 - Constitutional Appears: Chronically Ill - Head Exam Head Exam: NORMAL INSPECTION - Eye Exam Eye Exam: PERRL - ENT Exam Additional comments: Intubated - Neck Exam Neck Exam: Normal Inspection - Respiratory Exam Respiratory Exam: Decreased Breath Sounds (at bases L>R) - Cardiovascular Exam Cardiovascular Exam: REGULAR RHYTHM - GI/Abdominal Exam GI & Abdominal Exam: Soft, Normal Bowel Sounds - Extremities Exam Extremities Exam: absent: Pedal Edema - Neurological Exam Neurological Exam: Awake Additional comments: Open eyes to verbal stimuli, moves RUE, RLE, generalized weakness. - Skin Skin Exam: Warm Assessment and Plan (1) Acute respiratory failure Status: Acute (2) MRSA pneumonia Status: Acute (3) Acute right MCA stroke Status: Acute - Assessment and Plan (Free Text) Plan: Complete opacification L lung improved, Bronchoscopy deferred, f/u CXR. ICU Time: 37 min.
[2017-05-15] MEDS: Enoxaparin 40 mg Syringe SC SCH (16:30)
--- NOTE | 2017-05-15 16:39 | PN ---
DATE: 05/15/2017 CRITICAL CARE PROGRESS NOTE LOCATION: The patient is in ICU bed 424. TIME SPENT: 35 minutes. SUBJECTIVE: The patient is seen and evaluated at the bedside. Events since admission reviewed. Past medical, surgical and social history noted. A 56-year-old male admitted to ICU for respiratory failure, status post CVA, history of hypertension, anemia, ETOH abuse, and homeless. Overnight, telemetry sinus rhythm, low grade temperature, normotensive, intubated on mechanical ventilation on AC/PRVC rate 12, tidal volume 450, FiO2 of 50%, saturating 99%, exhale tidal volume 370, minute ventilation 9.7 liters, peak airway pressure at 34, end-tidal CO2 of 40. No discharge noted on the ventilator. The patient is lethargic, but arousable, appears weak on his left side. PHYSICAL EXAMINATION: VITAL SIGNS: Temperature 99.4, heart rate of 76, blood pressure 147/83, mean arterial pressure 104, saturation 100%. Intake 3180, output 1800, balance 1380. HEAD, EYES, EARS, NOSE, AND THROAT: Pupils are reactive. Conjunctivae pink. Sclerae white. NECK: Supple. CHEST: Bilateral breath sounds, clear to auscultation. HEART: Rhythm regular. S1 and S2 normal. No audible murmur. ABDOMEN: Bowel sounds present and soft. Liver and spleen not palpable. Bladder is nondistended. EXTREMITIES: 1+ edema. NEUROLOGIC: Dense left hemiplegia. Moves right upper extremity and right lower extremity. CURRENT MEDICATIONS: Include vancomycin 1 g IV q. 12 hours, aspirin 81 mg daily, DuoNeb 3 mL q.i.d., Lipitor 40 mg daily, Catapres 0.1 mg twice daily, Plavix 75 mg daily, enalapril 1.25 mg q. 6 hours IV, Lovenox 40 subcutaneous daily, folic acid 1 mg daily, guaifenesin 100 mg q. 6 hours, meropenem 1 g IV q. 8 hours, multivitamin liquid 5 mL daily, Protonix 40 mg daily, thiamine 100 mg daily and Seroquel 25 mg at bedtime. LABORATORY DATA: WBC 14.3, hemoglobin 12.3, hematocrit 36.9 and platelet count 275, neutrophils 77.9, lymphocytes 8.6, monocytes 8.8. PT 13.8, INR 1.3, PTT 34.9. ABG, pH of 7.43, pCO2 of 49, pO2 of 139, oxygen saturation 99.1 on AC 12, 450, FiO2 50%, PEEP of 5. SMA-7; sodium 133, potassium 4.3, chloride 97, CO2 of 29, blood urea nitrogen 9, creatinine 0.4, glucose 105, calcium 8.9. AST 69, ALT 69, alkaline phosphatase 64, total protein 5.9, albumin 2.3, globulin 3.6, AG ratio 0.6. Urinalysis, RBC 4, urine microscopic WBC less than 1. Vancomycin trough level 8.4. Clostridium difficile antigen and toxin are negative. Microbiology, sputum culture is positive for methicillin-resistant Staphylococcus aureus, also positive for Serratia marcescens. Chest x-ray done on this morning, interval improvement, previously noted near complete opacification left hemithorax, patchy infiltrate changes throughout the left lung, remains slight volume loss left hemithorax, right lung appears hyperinflated. IMPRESSION: 1. Neuro: Status post right middle cerebral artery infarct with left hemiparesis. 2. Pulmonary: Acute hypoxic respiratory failure, collapse of left lung associated with volume loss, suspected aspiration pneumonia, sputum culture positive for methicillin-resistant Staphylococcus and Serratia marcescens, on vancomycin and meropenem, appreciate ID input, continue bronchodilator q.i.d. 3. Cardiac: Normotensive. Normal sinus rhythm. 4. Gastrointestinal: History of ETOH abuse and ETOH-related falls. Continue proton pump inhibitor.NG tube feeding with aspiration precaution 5. Hematology. Leukocytosis trending down, secondary to suspected aspiration pneumonia. Anemia of chronic disease. 6. Renal: BUN and creatinine are within normal range. 7. Keep the head of bed at 30 degree up. Patient is scheduled for bronchoscopy at the bedside for evaluation of mucus plugs left lung, on hold n.p.o., aspirin and Lovenox on hold for the procedure. Once the bronchoscopy is completed, attempt weaning trial. Because of the oropharyngeal dysphagia secondary to cerebrovascular accident, patient at risk for recurrent aspiration and also difficult for aspiration. If the patient fails extubation, may need tracheostomy and percutaneous endoscopic gastrostomy insertion. Closely monitor for alcohol withdrawal symptoms. Tima Mart MD [facility] # [id number] [place]
[2017-05-16] MEDS: Dextrose 5%/0.9% NS 1,000 ML IV SCH ×2 (00:11→16:31)
[2017-05-16] MEDS: Meropenem 1 GM in Sodium Chloride 0.9% 100 ML IVPB SCH ×3 (00:15→16:38)
[2017-05-16] MEDS: EnalaprilAT 1.25 mg/ml Inj IV SCH ×4 (04:19→22:00)
[2017-05-16 05:20] LABS: BASO # 0.2 K/uL (0.0-0.2); BASO % 1.4 % (0.0-2.0); EOS # 0.4 K/uL (0.0-0.7); EOS % 2.9 % (0.0-4.0); HEMATOCRIT 36.1 % (35.0-51.0); LYMPH % 7.2 % (20.0-40.0); MEAN CELL VOLUME 100.1 fl (80.0-94.0); MEAN CORPUSCULAR HEMOGLOBIN 33.7 pg (27.0-31.0); MEAN CORPUSCULAR HGB CONC 33.6 g/dL (33.0-37.0); MEAN PLATELET VOLUME 8.3 fl (7.2-11.7); MONO # 1.3 K/uL (0.0-0.8); MONO % 9.4 % (0.0-10.0); NEUT # 11.1 K/uL (1.8-7.0); NEUT % 79.1 % (50.0-75.0); RED CELL DISTRIBUTION WIDTH 13.9 % (11.5-14.5)
[2017-05-16 05:30] LABS: BLOOD UREA NITROGEN 11 mg/dl (9-20); CALCIUM 8.8 mg/dL (8.4-10.2); CARBON DIOXIDE 29 mmol/L (22-30); CHLORIDE 99 mmol/L (98-107); GFR AFRICAN-AMERICAN > 60; GLUCOSE,RANDOM 125 mg/dL (75-110); MAGNESIUM 1.8 MG/DL (1.6-2.3); SODIUM 133 mmol/l (132-148)
[2017-05-16 06:02] LABS: ABG ALLEN TEST YES; ABG MECHANICAL RATE 12; ARTERIAL BLOOD GAS HCO3 27.8 mmol/L (21-28); ARTERIAL BLOOD GAS MODE A/C; ARTERIAL BLOOD GAS O2 CAPACITY 17.2 mL/dL (16-24); ARTERIAL BLOOD GAS O2 CONTENT 16.9 ML/dL (15-23); ARTERIAL BLOOD GAS PH 7.33 (7.35-7.45); ARTERIAL BLOOD GAS PO2 104 mm/Hg (80-100); ARTERIAL BLOOD HGB O2 SAT 95.6 % (95.0-98.0); ATERIAL BLOOD GAS PEEP 5; CARBOXYHEMOGLOBIN 1.2 % (0.5-1.5); HHB 1.5 % (0.0-5.0); METHEMOGLOBIN 1.7 % (0.0-3.0)
--- NOTE | 2017-05-16 07:21 | CP.PCM.PN ---
Subjective - Date & Time of Evaluation Date of Evaluation: 04/15/17 Time of Evaluation: 08:00 - Subjective Subjective: Patient seen and examined bedside. Intubated on MV PRVC AC mode 16/450/5/50 % with ABG 59/104/27/7.33 this AM CXR showed significant improvement to left side infiltrate with thick mucoid secretions being suctioned from ET tube Responds to name calling by opening right eye , follows simple commands, moves right upper and lower extremity, with left hemiparesis No acute issues overnight Bp elevated 173/109 HR 101 afebrile RR 22 saturating 93 % WBC 14 K Hgb 12 Plt 203 I/O 2495/900, lew in place OGT in place. Feeding on hold this AM for possible bronchoscopy Objective - Vital Signs/Intake and Output Vital Signs (last 24 hours): Temp Pulse Resp BP Pulse Ox 98.8 F 92 H 25 H 197/97 H 100 05/16/17 04:00 05/16/17 04:00 05/16/17 04:00 05/16/17 04:19 05/16/17 04:00 Intake and Output: 05/16/17 05/16/17 06:59 18:59 Intake Total 945 Balance 945 - Medications Medications: Current Medications Acetaminophen (Tylenol 325mg Tab) 650 mg PO Q6 PRN PRN Reason: Pain, Mild (1-3) Last Admin: 05/15/17 13:46 Dose: 650 mg Acetaminophen (Tylenol 650 Mg Supp) 650 mg PA Q6 PRN PRN Reason: Fever >100.4 F Last Admin: 05/11/17 04:50 Dose: 650 mg Albuterol/Ipratropium (Duoneb 3 Mg/0.5 Mg (3 Ml) Ud) 3 ml INH RQID [facility] Last Admin: 05/15/17 19:36 Dose: 3 ml Aspirin (Aspirin Chewable) 81 mg PO DAILY [facility] Last Admin: 05/15/17 16:29 Dose: 81 mg Atorvastatin Calcium (Lipitor) 40 mg PO DAILY [facility] Last Admin: 05/15/17 13:48 Dose: 40 mg Clonidine HCl (Catapres) 0.1 mg PO BID [facility] Last Admin: 05/15/17 16:33 Dose: 0.1 mg Clopidogrel Bisulfate (Plavix) 75 mg PO DAILY [facility] Last Admin: 05/15/17 16:30 Dose: 75 mg Enalaprilat (Vasotec Iv) 1.25 mg IV Q6 [facility] Last Admin: 05/16/17 04:19 Dose: 1.25 mg Enoxaparin Sodium (Lovenox) 40 mg SC DAILY [facility] PRN Reason: Protocol Last Admin: 05/15/17 16:30 Dose: 40 mg Folic Acid (Folic Acid) 1 mg PO DAILY [facility] Last Admin: 05/15/17 13:45 Dose: 1 mg Guaifenesin (Robitussin) 100 mg PO Q6 PRN PRN Reason: Cough Vancomycin HCl 1 gm/ Sodium (Chloride) 250 mls @ 166.667 mls/hr IVPB Q12 [facility] Last Admin: 05/15/17 20:38 Dose: 166.667 mls/hr Meropenem 1 gm/ Sodium (Chloride) 100 mls @ 100 mls/hr IVPB Q8 [facility] Last Admin: 05/16/17 00:15 Dose: 100 mls/hr Dextrose/Sodium Chloride (Dextrose 5%/0.9% Ns 1000 Ml) 1,000 mls @ 80 mls/hr IV .[id number] [facility] Stop: 05/16/17 17:22 Last Admin: 05/16/17 00:11 Dose: 80 mls/hr Lorazepam (Ativan) 1 mg IVP Q6 PRN PRN Reason: Agitation Last Admin: 05/16/17 04:08 Dose: 1 mg Multivitamins/Vitamin C (Multi-Delyn Liquid) 5 ml PO DAILY [facility] Last Admin: 05/15/17 13:47 Dose: 5 ml Pantoprazole Sodium (Protonix Susp) 40 mg PO DAILY [facility] Last Admin: 05/15/17 13:46 Dose: 40 mg Quetiapine Fumarate (Seroquel) 25 mg PO HS [facility] Last Admin: 05/03/17 22:55 Dose: Not Given Thiamine HCl (Vitamin B1 Tab) 100 mg PO DAILY [facility] Last Admin: 05/15/17 13:46 Dose: 100 mg - Labs Labs: 05/16/17 04:20 05/16/17 04:20 PT 13.8 Seconds (9.8-13.1) H 05/15/17 10:20 INR 1.3 (0.9-1.2) H 05/15/17 10:20 APTT 34.9 Seconds (25.6-37.1) 05/15/17 10:20 - Constitutional Appears: Chronically Ill, Other (intrubated on MV, restless , follows simple command, responds to name calling opens right eye) - Head Exam Head Exam: ATRAUMATIC, NORMOCEPHALIC - Eye Exam Eye Exam: Normal appearance, PERRL Pupil Exam: NORMAL ACCOMODATION Additional comments: keeps left eye closed - ENT Exam ENT Exam: Mucous Membranes Dry, Normal Exam - Neck Exam Neck Exam: Normal Inspection - Respiratory Exam Respiratory Exam: Accessory Muscle Use, Clear to Ausculation Bilateral, NORMAL BREATHING PATTERN. absent: Rhonchi, Wheezes - Cardiovascular Exam Cardiovascular Exam: Tachycardia, +S1, +S2. absent: JVD - GI/Abdominal Exam GI & Abdominal Exam: Soft. absent: Distended, Guarding, Tenderness, Rebound - Rectal Exam Rectal Exam: Deferred - Extremities Exam Extremities Exam: Normal Capillary Refill. absent: Calf Tenderness, Pedal Edema - Neurological Exam Additional comments: Responds to name calling by opening right eye, follows simple commands Left side hemiparesiss - Psychiatric Exam Psychiatric exam: Flat Affect - Skin Skin Exam: Dry, Normal Color, Warm Assessment and Plan - Assessment and Plan (Free Text) Assessment: 56 y/o homeless male with PMHx significant for HTN, anemia, and EtOH abuse presented to ER with multiple falls and minor head trauma. He stated that he had been feeling 'off balance' and falling more over the past several days. He denied EtOH associated with these falls. Denied any focal weakness, but felt like both his feet were numb (this is ongoing, not new) and also c/o back pain (also chronic); he also felt off balance more lately as well. CT head in ER showed Multiple bilateral lacunar infarcts and severe cortical atrophy. Patient admitted in telemetry for close monitoring. MRI head showed acute right MCA stroke Patient started on ASa, lovenox and statin. Neurology and PT consulted He developed DT-s and was started on gabapentin 300 mg PO TID , Seroquel and Ativan PRN Patient became more lethargic with dyarthria, dysphagia, left facial droop and left side weakness. Repeat MRI of the head showed : Findings compatible with the known recent right basal ganglia infarct. No new areas of infarction seen. No MR evidence of associated hemorrhage. He developed acute hypoxemic respiratory failure on 05/09 likely due to Aspiration PNA, was intubated and transferred to ICU. At present still intubated on MV on FIo2 50 % 1. Acute Respiratory failure with Hypoxia sec to Aspiration Pneumonia Still intubated on MV PRVC/AC mode 16/450/5/50 % with thick yellowish respiratory secretions requiring frequent suctioning Sputum cultures growing MRSA and Serratia Marcescen Initial CXR showed toatal white out of left lung. Repeat CXR today showing significant improvement of left infiltrate WBC trended down 14 K, afebrile ID consult with Dr. Fritz appreciated and recommended IV Meropenem and Vanco keep head of the bed elevated frequent suctioning and aspiration precautions Was planned for bronchoscopy by pulmonary today but given that left lung has much improved unlikely to need it [facility] - plan for PEG once more stable Pulmonary consult with Dr Garrison on board Surgery was consulted for possible Trach placement if unable to extubate- discussed with family 2. Acute Ischemic stroke lethargic with dysarthria, dysphagia, left facial droop and left side hemiparesis MRI of the head 04/28 : 1. Acute right MCA territory infarction involving the right narayanan radiata and basal ganglia. 2. Severe chronic microangiopathic changes and mild age-related global parenchymal volume loss. Repeat MRI 05/04 showed known recent basal ganglia infarct no acute changes CTA neck showed no Blood clot , carotid doppler showed no stenosis Echo showed normal EF and wall motion Neurology consult appreciated Repeat CT head showed no hemorrhagic conversion Continue ASA, statin ,Plavix keep head of the bed elevated . EEG: No epileptiform activity PT consulted . He will need YEHUDA placement for physical therapy once stable Will need PEG placement once more stable 3.ETOH withdrawal/ Delirium tremens-- resolved but now lethargic due to CVA patient was tachycardic, tremulous, confused with visual hallucinations on admission was initially Started on librium tapering dose-- discontinued due to sedation discussed with neurology who recommended to start patient on gabapentin and Seroquel HS that were discontinued due to lethargy Continue thiamine, folic acid, MVI, Seizure precautions Ativan prn 4. HTN uncontrolled Enalapril 1.25 mg IV Q6 prn Infarct has been 1 wk now - started antihypertensives on Clonidine 5.Thrombocytopenia- improved most likely chronic secondary to ETOH abuse 6.Hypokalemia, resolved IVF with [id number] 7. DVT PPx Lovenox
[2017-05-16] MEDS ORDERED: Midazolam 2 MG/2 ML VIAL ONE (07:24)
[2017-05-16] MEDS: Albuterol-Ipratrop 3 mg / 0.5 (3 ml) UD INH SCH ×4 (08:23→19:41)
[2017-05-16] MEDS: Enoxaparin 40 mg Syringe SC SCH (09:28)
[2017-05-16] MEDS ORDERED: Midazolam 5 MG/ML IV ONE (09:30)
--- NOTE | 2017-05-16 10:41 | RAD ---
HISTORY: Respiratory failure , Pneumonia COMPARISON: Comparison made with prior study 05/15/2017 FINDINGS: In situ ETT, tip of which lies approximately 5.3 cm above gavino. NGT is present, tip of which has not been included on this film though distal aspect does lie well below EG junction. LUNGS: Interval slight improvement previously noted diffuse infiltrate changes throughout the left midlung field however the left hemidiaphragm appears less distinct, suggesting mild more dense consolidation and effusion. PLEURA: As above. No pneumothorax apparent. CARDIOVASCULAR: Normal. OSSEOUS STRUCTURES: No significant abnormalities. VISUALIZED UPPER ABDOMEN: Normal. OTHER FINDINGS: None. IMPRESSION: ETT and NGT as above. Interval slight improvement previously noted diffuse infiltrate changes throughout the left midlung field however the left hemidiaphragm appears less distinct, suggesting mild more dense consolidation and effusion.
--- NOTE | 2017-05-16 11:31 | CP.PCM.PN ---
Subjective - Date & Time of Evaluation Date of Evaluation: 05/16/17 Time of Evaluation: 11:30 - Subjective Subjective: Surgery Pt s&e. NAEON. Pt intubated at Fio2 50%. Follows verbal commands. Response to pain stimuli. No pressers. Objective - Vital Signs/Intake and Output Vital Signs (last 24 hours): Temp Pulse Resp BP Pulse Ox 97.8 F 87 21 154/85 H 100 05/16/17 08:00 05/16/17 10:00 05/16/17 10:00 05/16/17 10:00 05/16/17 10:00 Intake and Output: 05/16/17 05/16/17 06:59 18:59 Intake Total 945 100 Output Total 400 0 Balance 545 100 - Medications Medications: Current Medications Acetaminophen (Tylenol 325mg Tab) 650 mg PO Q6 PRN PRN Reason: Pain, Mild (1-3) Last Admin: 05/15/17 13:46 Dose: 650 mg Acetaminophen (Tylenol 650 Mg Supp) 650 mg MD Q6 PRN PRN Reason: Fever >100.4 F Last Admin: 05/11/17 04:50 Dose: 650 mg Albuterol/Ipratropium (Duoneb 3 Mg/0.5 Mg (3 Ml) Ud) 3 ml INH RQID [facility] Last Admin: 05/16/17 11:13 Dose: 3 ml Aspirin (Aspirin Chewable) 81 mg PO DAILY [facility] Last Admin: 05/15/17 16:29 Dose: 81 mg Atorvastatin Calcium (Lipitor) 40 mg PO DAILY [facility] Last Admin: 05/15/17 13:48 Dose: 40 mg Clonidine HCl (Catapres) 0.1 mg PO BID [facility] Last Admin: 05/15/17 16:33 Dose: 0.1 mg Clopidogrel Bisulfate (Plavix) 75 mg PO DAILY [facility] Last Admin: 05/15/17 16:30 Dose: 75 mg Enalaprilat (Vasotec Iv) 1.25 mg IV Q6 [facility] Last Admin: 05/16/17 09:25 Dose: 1.25 mg Enoxaparin Sodium (Lovenox) 40 mg SC DAILY [facility] PRN Reason: Protocol Last Admin: 05/16/17 09:28 Dose: 40 mg Folic Acid (Folic Acid) 1 mg PO DAILY [facility] Last Admin: 05/15/17 13:45 Dose: 1 mg Guaifenesin (Robitussin) 100 mg PO Q6 PRN PRN Reason: Cough Vancomycin HCl 1 gm/ Sodium (Chloride) 250 mls @ 166.667 mls/hr IVPB Q12 [facility] Last Admin: 05/15/17 20:38 Dose: 166.667 mls/hr Meropenem 1 gm/ Sodium (Chloride) 100 mls @ 100 mls/hr IVPB Q8 [facility] Last Admin: 05/16/17 09:25 Dose: 100 mls/hr Dextrose/Sodium Chloride (Dextrose 5%/0.9% Ns 1000 Ml) 1,000 mls @ 80 mls/hr IV .[id number] [facility] Stop: 05/16/17 17:22 Last Admin: 05/16/17 00:11 Dose: 80 mls/hr Lorazepam (Ativan) 1 mg IVP Q6 PRN PRN Reason: Agitation Last Admin: 05/16/17 04:08 Dose: 1 mg Multivitamins/Vitamin C (Multi-Delyn Liquid) 5 ml PO DAILY [facility] Last Admin: 05/15/17 13:47 Dose: 5 ml Pantoprazole Sodium (Protonix Susp) 40 mg PO DAILY [facility] Last Admin: 05/15/17 13:46 Dose: 40 mg Quetiapine Fumarate (Seroquel) 25 mg PO HS [facility] Last Admin: 05/03/17 22:55 Dose: Not Given Thiamine HCl (Vitamin B1 Tab) 100 mg PO DAILY [facility] Last Admin: 05/15/17 13:46 Dose: 100 mg - Labs Labs: 05/16/17 04:20 05/16/17 04:20 PT 13.8 Seconds (9.8-13.1) H 05/15/17 10:20 INR 1.3 (0.9-1.2) H 05/15/17 10:20 APTT 34.9 Seconds (25.6-37.1) 05/15/17 10:20 - Constitutional Appears: Non-toxic - Head Exam Head Exam: ATRAUMATIC, NORMAL INSPECTION, NORMOCEPHALIC - Eye Exam Eye Exam: EOMI, Normal appearance, PERRL Pupil Exam: NORMAL ACCOMODATION, PERRL - ENT Exam ENT Exam: Mucous Membranes Moist, Normal Exam - Respiratory Exam Respiratory Exam: Respiratory Distress Additional comments: Intubated. Fio2 50% - Cardiovascular Exam Cardiovascular Exam: REGULAR RHYTHM - GI/Abdominal Exam GI & Abdominal Exam: Soft, Normal Bowel Sounds. absent: Distended, Tenderness - Back Exam Back Exam: NORMAL INSPECTION - Neurological Exam Neurological Exam: Alert, Awake, CN II-XII Intact - Psychiatric Exam Psychiatric exam: Normal Affect, Normal Mood - Skin Skin Exam: Dry, Intact, Normal Color, Warm Assessment and Plan - Assessment and Plan (Free Text) Assessment: 56 M with acute respiratory failure, intubated on 05/09, as well as CVA and MRSA PNA Plan: -cont ICU management -will follow, if unable to extubate will consider trach -further recs per attending
[2017-05-16] MEDS: Multiple Vitamins Oral Solution PO SCH (11:43)
[2017-05-16] MEDS: Pantoprazole 40 mg Susp UD PO SCH (11:44)
--- NOTE | 2017-05-16 15:52 | CP.PCM.PN ---
Subjective - Date & Time of Evaluation Date of Evaluation: 05/16/17 Time of Evaluation: 13:10 - Subjective Subjective: F/U Acute Respiratory Failure. Pt with eyes open, does not follows verbal stimuli, minimal response to tactile stimuli, some spontaneous movements upper extremities, on PRVC /AC 50% FIO2 Objective - Vital Signs/Intake and Output Vital Signs (last 24 hours): Temp Pulse Resp BP Pulse Ox 98.7 F 73 16 159/107 H 100 05/16/17 15:42 05/16/17 15:42 05/16/17 15:42 05/16/17 15:42 05/16/17 15:42 Intake and Output: 05/16/17 05/16/17 06:59 18:59 Intake Total 945 350 Output Total 400 0 Balance 545 350 - Medications Medications: Current Medications Acetaminophen (Tylenol 325mg Tab) 650 mg PO Q6 PRN PRN Reason: Pain, Mild (1-3) Last Admin: 05/15/17 13:46 Dose: 650 mg Acetaminophen (Tylenol 650 Mg Supp) 650 mg SC Q6 PRN PRN Reason: Fever >100.4 F Last Admin: 05/11/17 04:50 Dose: 650 mg Albuterol/Ipratropium (Duoneb 3 Mg/0.5 Mg (3 Ml) Ud) 3 ml INH RQID [facility] Last Admin: 05/16/17 15:38 Dose: 3 ml Aspirin (Aspirin Chewable) 81 mg PO DAILY [facility] Last Admin: 05/16/17 11:46 Dose: 81 mg Atorvastatin Calcium (Lipitor) 40 mg PO DAILY [facility] Last Admin: 05/16/17 11:46 Dose: 40 mg Clonidine HCl (Catapres) 0.1 mg PO BID [facility] Last Admin: 05/16/17 11:44 Dose: 0.1 mg Clopidogrel Bisulfate (Plavix) 75 mg PO DAILY [facility] Last Admin: 05/16/17 11:46 Dose: 75 mg Enalaprilat (Vasotec Iv) 1.25 mg IV Q6 [facility] Last Admin: 05/16/17 09:25 Dose: 1.25 mg Enoxaparin Sodium (Lovenox) 40 mg SC DAILY [facility] PRN Reason: Protocol Last Admin: 05/16/17 09:28 Dose: 40 mg Folic Acid (Folic Acid) 1 mg PO DAILY [facility] Last Admin: 05/16/17 11:45 Dose: 1 mg Guaifenesin (Robitussin) 100 mg PO Q6 PRN PRN Reason: Cough Vancomycin HCl 1 gm/ Sodium (Chloride) 250 mls @ 166.667 mls/hr IVPB Q12 [facility] Last Admin: 05/16/17 11:41 Dose: 166.667 mls/hr Meropenem 1 gm/ Sodium (Chloride) 100 mls @ 100 mls/hr IVPB Q8 [facility] Last Admin: 05/16/17 09:25 Dose: 100 mls/hr Dextrose/Sodium Chloride (Dextrose 5%/0.9% Ns 1000 Ml) 1,000 mls @ 80 mls/hr IV .[id number] [facility] Stop: 05/16/17 17:22 Last Admin: 05/16/17 00:11 Dose: 80 mls/hr Lorazepam (Ativan) 1 mg IVP Q6 PRN PRN Reason: Agitation Last Admin: 05/16/17 13:40 Dose: 1 mg Multivitamins/Vitamin C (Multi-Delyn Liquid) 5 ml PO DAILY [facility] Last Admin: 05/16/17 11:43 Dose: 5 ml Pantoprazole Sodium (Protonix Susp) 40 mg PO DAILY [facility] Last Admin: 05/16/17 11:44 Dose: 40 mg Quetiapine Fumarate (Seroquel) 25 mg PO HS [facility] Last Admin: 05/03/17 22:55 Dose: Not Given Thiamine HCl (Vitamin B1 Tab) 100 mg PO DAILY [facility] Last Admin: 05/16/17 11:46 Dose: 100 mg - Labs Labs: 05/16/17 04:20 05/16/17 04:20 PT 13.8 Seconds (9.8-13.1) H 05/15/17 10:20 INR 1.3 (0.9-1.2) H 05/15/17 10:20 APTT 34.9 Seconds (25.6-37.1) 05/15/17 10:20 - Constitutional Appears: Chronically Ill - Head Exam Head Exam: NORMAL INSPECTION - Eye Exam Eye Exam: PERRL - ENT Exam Additional comments: Intubated - Neck Exam Neck Exam: Normal Inspection - Respiratory Exam Respiratory Exam: Decreased Breath Sounds (at bases), Rhonchi (few at bases) - Cardiovascular Exam Cardiovascular Exam: REGULAR RHYTHM - GI/Abdominal Exam GI & Abdominal Exam: Soft, Normal Bowel Sounds - Extremities Exam Extremities Exam: absent: Pedal Edema - Neurological Exam Neurological Exam: Awake Additional comments: Minimal response to tactile stimuli, no response to verbal stimuli. spontaneous movements upper extremities, generalized weakness. - Psychiatric Exam Additional comments: Calm, intubated - Skin Skin Exam: Warm Assessment and Plan (1) Acute respiratory failure Status: Acute (2) MRSA pneumonia Status: Acute (3) Acute right MCA stroke Status: Acute - Assessment and Plan (Free Text) Plan: CXR shows PNA slightly improved. Continue Rita Pino , current Tx. for PEG , Tracheostomy considered for next week ICU Time: 38 min.
--- NOTE | 2017-05-16 16:08 | CP.CCUPN ---
CCU Subjective - Physician Review Events Since Last Encounter (Free Text): 05/16/17 15:55 alert, not following commands, agitated fighting vent. CCU Objective - Vital Signs / Intake & Output Vital Signs (Last 4 hours): Vital Signs Temp Pulse Resp BP Pulse Ox 05/16/17 15:42 98.7 F 73 16 159/107 H 100 05/16/17 14:00 84 19 156/107 H 100 05/16/17 12:00 98.9 F 85 18 157/90 H 100 Intake and Output (Last 8hrs): Intake & Output 05/16/17 05/16/17 05/16/17 06:59 14:59 22:59 Intake Total 540 350 Output Total 400 0 Balance 140 350 Intake: IV 460 Intake, Piggyback 350 Tube Feeding 80 Output: Urine 400 Urethral (Lew) 400 Stool 0 Other: # Bowel Movements 0 - Physical Exam Head: Positive for: Atraumatic, Normocephalic Pupils: Positive for: PERRL Extroacular Muscles: Positive for: EOMI Conjunctiva: Positive for: Normal Mouth: Positive for: Moist Mucous Membranes Neck: Negative for: JVD, Bruit Respiratory/Chest: Positive for: Decreased Breath Sounds (left), Rhonchi ( diffuse) Cardiovascular: Positive for: Regular Rate and Rhythm Abdomen: Positive for: Normal Bowel Sounds. Negative for: Tenderness, Distention Upper Extremity: Positive for: Other (spontaneous movement of right arm) Lower Extremity: Positive for: NORMAL PULSES, Other (spontaneous movement of right leg). Negative for: CALF TENDERNESS, Cyanosis Neurological: Positive for: Other (Left hemiplegia) Skin: Positive for: Warm. Negative for: Rashes Psychiatric: Positive for: Alert - Medications Active Medications: Active Medications Generic Name Dose Route Start Last Admin Trade Name Freq PRN Reason Stop Dose Admin Acetaminophen 650 mg 04/27/17 03:51 05/15/17 13:46 Tylenol 325mg Tab PO 650 mg Q6 PRN Administration Pain, Mild (1-3) Acetaminophen 650 mg 05/09/17 12:30 05/11/17 04:50 Tylenol 650 Mg Supp [place] 650 mg Q6 PRN Administration Fever >100.4 F Albuterol/Ipratropium 3 ml 05/04/17 20:00 05/16/17 15:38 Duoneb 3 Mg/0.5 Mg (3 Ml) Ud INH 3 ml RQID [facility] Administration Aspirin 81 mg 04/27/17 09:00 05/16/17 11:46 Aspirin Chewable PO 81 mg DAILY [facility] Administration Atorvastatin Calcium 40 mg 04/27/17 09:00 05/16/17 11:46 Lipitor PO 40 mg DAILY [facility] Administration Clonidine HCl 0.1 mg 05/15/17 17:00 05/16/17 11:44 Catapres PO 0.1 mg BID [facility] Administration Clopidogrel Bisulfate 75 mg 05/11/17 17:18 05/16/17 11:46 Plavix PO 75 mg DAILY [facility] Administration Enalaprilat 1.25 mg 05/12/17 22:00 05/16/17 09:25 Vasotec Iv IV 1.25 mg Q6 [facility] Administration Enoxaparin Sodium 40 mg 04/27/17 09:00 05/16/17 09:28 Lovenox SC 40 mg DAILY [facility] Administration Protocol Folic Acid 1 mg 04/27/17 15:15 05/16/17 11:45 Folic Acid PO 1 mg DAILY [facility] Administration Guaifenesin 100 mg 05/09/17 15:26 Robitussin PO Q6 PRN Cough Vancomycin HCl 1 gm/ Sodium 250 mls @ 166.667 mls/hr 05/04/17 21:00 05/16/17 11:41 Chloride IVPB 166.667 mls/hr Q12 [facility] Administration Meropenem 1 gm/ Sodium 100 mls @ 100 mls/hr 05/10/17 17:00 05/16/17 09:25 Chloride IVPB 100 mls/hr Q8 [facility] Administration Dextrose/Sodium Chloride 1,000 mls @ 80 mls/hr 05/15/17 23:59 05/16/17 00:11 Dextrose 5%/0.9% Ns 1000 Ml IV 05/16/17 17:22 80 mls/hr .[id number] [facility] Administration Lorazepam 1 mg 05/10/17 21:57 05/16/17 13:40 Ativan IVP 1 mg Q6 PRN Administration Agitation Multivitamins/Vitamin C 5 ml 04/27/17 15:15 05/16/17 11:43 Multi-Delyn Liquid PO 5 ml DAILY [facility] Administration Pantoprazole Sodium 40 mg 05/10/17 09:00 05/16/17 11:44 Protonix Susp PO 40 mg DAILY [facility] Administration Quetiapine Fumarate 25 mg 04/28/17 22:00 05/03/17 22:55 Seroquel PO Not Given HS [facility] Thiamine HCl 100 mg 04/27/17 15:15 05/16/17 11:46 Vitamin B1 Tab PO 100 mg DAILY [facility] Administration - Patient Studies Lab Studies: Lab Studies 05/16/17 05/16/17 05/16/17 Range/Units 05:59 04:20 04:20 WBC 14.0 H (4.8-10.8) K/uL RBC 3.61 L (4.40-5.90) Mil/uL Hgb 12.1 (12.0-18.0) g/dL Hct 36.1 (35.0-51.0) % MCV 100.1 H (80.0-94.0) fl MCH 33.7 H (27.0-31.0) pg MCHC 33.6 (33.0-37.0) g/dL RDW 13.9 (11.5-14.5) % Plt Count 203 (130-400) K/uL MPV 8.3 (7.2-11.7) fl Neut % (Auto) 79.1 H (50.0-75.0) % Lymph % (Auto) 7.2 L (20.0-40.0) % [place] % (Auto) 9.4 (0.0-10.0) % Eos % (Auto) 2.9 (0.0-4.0) % Baso % (Auto) 1.4 (0.0-2.0) % Neut # 11.1 H (1.8-7.0) K/uL Lymph # 1.0 (1.0-4.3) K/uL [place] # 1.3 H (0.0-0.8) K/uL Eos # 0.4 (0.0-0.7) K/uL Baso # 0.2 (0.0-0.2) K/uL pCO2 59 H (35-45) mm/Hg pO2 104 H (80-100) mm/Hg HCO3 27.8 (21-28) mmol/L ABG pH 7.33 L (7.35-7.45) ABG Total CO2 32.9 H (22-28) mmol/L ABG O2 Saturation 98.5 H (95-98) % ABG O2 Content 16.9 (15-23) ML/dL ABG Base Excess 3.7 H (-2.0-3.0) mmol/L ABG Hemoglobin 12.5 (11.7-17.4) g/dL ABG Carboxyhemoglobin 1.2 (0.5-1.5) % POC ABG HHb (Measured) 1.5 (0.0-5.0) % ABG Methemoglobin 1.7 (0.0-3.0) % ABG O2 Capacity 17.2 (16-24) mL/dL Carson Test Yes A-a O2 Difference 179.0 mm/Hg Hgb O2 Saturation 95.6 (95.0-98.0) % Vent Mode A/c Mechanical Rate 12 FiO2 50.0 % Tidal Volume 450 PEEP 5 Sodium 133 (132-148) mmol/l Potassium 4.0 (3.6-5.0) MMOL/L Chloride 99 (98-107) mmol/L Carbon Dioxide 29 (22-30) mmol/L Anion Gap 10 (10-20) BUN 11 (9-20) mg/dl Creatinine 0.4 L (0.8-1.5) mg/dL Est GFR ( Amer) > 60 Est GFR (Non-Af Amer) > 60 Random Glucose 125 H (75-110) mg/dL Calcium 8.8 (8.4-10.2) mg/dL Magnesium 1.8 (1.6-2.3) MG/DL Laboratory Results - last 24 hr 05/16/17 05/16/17 05/16/17 04:20 04:20 05:59 WBC 14.0 H RBC 3.61 L Hgb 12.1 Hct 36.1 MCV 100.1 H MCH 33.7 H MCHC 33.6 RDW 13.9 Plt Count 203 MPV 8.3 Neut % (Auto) 79.1 H Lymph % (Auto) 7.2 L [place] % (Auto) 9.4 Eos % (Auto) 2.9 Baso % (Auto) 1.4 Neut # 11.1 H Lymph # 1.0 [place] # 1.3 H Eos # 0.4 Baso # 0.2 pCO2 59 H pO2 104 H HCO3 27.8 ABG pH 7.33 L ABG Total CO2 32.9 H ABG O2 Saturation 98.5 H ABG O2 Content 16.9 ABG Base Excess 3.7 H ABG Hemoglobin 12.5 ABG Carboxyhemoglobin 1.2 POC ABG HHb (Measured) 1.5 ABG Methemoglobin 1.7 ABG O2 Capacity 17.2 [place] Test Yes A-a O2 Difference 179.0 Hgb O2 Saturation 95.6 Vent Mode A/c Mechanical Rate 12 FiO2 50.0 Tidal Volume 450 PEEP 5 Sodium 133 Potassium 4.0 Chloride 99 Carbon Dioxide 29 Anion Gap 10 BUN 11 Creatinine 0.4 L Est GFR ( Amer) > 60 Est GFR (Non-Af Amer) > 60 Random Glucose 125 H Calcium 8.8 Magnesium 1.8 Review of Systems - Review of Systems Systems not reviewed;Unavailable: Intubated Critical Care Progress Note - Ventilator Checklist Head of Bed 30 Degrees: Yes Daily Sedation Vacation: Yes Daily Assessment of Readiness to Wean: Yes Daily Spontaneous Breathing Trial: Yes PUD Prophalyxis: Yes DVT Prophylaxis: Yes - Nutrition Nutrition: Nutrition Category Date Time Status NPO Diet [DIET] Diets 05/16/17 Breakfast Active Assessment/Plan (1) CVA (cerebral vascular accident) Assessment and plan: 56yo M. PMHx HTN, anemia, ETOH abuse, homeless. p/w ataxia and falls (04/26). Found to have multiple bilateral lacunae/infarcts and severe cortical atrophy. (05/04) MRI - right basal ganglia infarct. Patient's mental status has slowly declined, requiring intubation (05/09). Neuro: continue Seroquel po qhs. Pulm: Acute respiratory failure with hypoxia, intubated now on vent. Chest x- ray is indicative of aspiration pneumonia with consolidation in the left lower lobe, continue IV antibiotics, DuoNeb's, mucolytic's. Patient will need trach for airway protection, slowly aspirating his own secretions. Surgery consulted. CV: Hemodynamically stable. HTN controlled with Clonidine po bid, enalaprilat IV q6h. Hem: No acute issues, continue ASA and Plavix. Renal: No acute issues, urine output within normal limits, we will monitor. Endo: No acute issues GI: Nothing by mouth, Tube feeds Jevity@50. Free water 145 ml q4h. Will reconsult GI for PEG placement. ID: Severe sepsis from aspiration pneumonia, continue vancomycin and Meropenem. DVT proph - Lovenox GI proph - Protonix lew for strict I/O's during acute illness Code status - full code Critical Care Time 35 minutes Multi-disciplinary rounds were performed with house staff, nursing, speech therapy, respiratory therapy, pharmacy and nutrition with integrated input from the primary team/attending and other consulting services. The documented time is cumulative and includes review of patient data/exams/labs/chart review and examination of the patient on rounds and throughout the day; time is exclusive of any procedures or teaching time. Current Visit: Yes Status: Deleted Priority: High
[2017-05-17] MEDS: Meropenem 1 GM in Sodium Chloride 0.9% 100 ML IVPB SCH ×3 (00:15→16:18)
[2017-05-17 06:05] LABS: HEMATOCRIT 33.1 % (35.0-51.0); MEAN CELL VOLUME 100.7 fl (80.0-94.0); MEAN CORPUSCULAR HEMOGLOBIN 33.8 pg (27.0-31.0); MEAN CORPUSCULAR HGB CONC 33.5 g/dL (33.0-37.0); RED CELL DISTRIBUTION WIDTH 13.8 % (11.5-14.5); WHITE BLOOD COUNT 10.1 K/uL (4.8-10.8)
[2017-05-17 06:23] LABS: BLOOD UREA NITROGEN 9 mg/dl (9-20); CALCIUM 8.7 mg/dL (8.4-10.2); CARBON DIOXIDE 29 mmol/L (22-30); CHLORIDE 99 mmol/L (98-107); GFR AFRICAN-AMERICAN > 60; GLUCOSE,RANDOM 108 mg/dL (75-110); POTASSIUM 3.3 MMOL/L (3.6-5.0); SODIUM 134 mmol/l (132-148)
[2017-05-17 06:26] LABS: ABG ALLEN TEST YES; ABG MECHANICAL RATE 16; ARTERIAL BLOOD GAS HCO3 31.8 mmol/L (21-28); ARTERIAL BLOOD GAS MODE A/C; ARTERIAL BLOOD GAS O2 CAPACITY 15.3 mL/dL (16-24); ARTERIAL BLOOD GAS O2 CONTENT 15.2 ML/dL (15-23); ARTERIAL BLOOD GAS PO2 170 mm/Hg (80-100); ARTERIAL BLOOD HGB O2 SAT 96.8 % (95.0-98.0); ATERIAL BLOOD GAS PEEP 5; CARBOXYHEMOGLOBIN 0.9 % (0.5-1.5); HHB 0.8 % (0.0-5.0); METHEMOGLOBIN 1.5 % (0.0-3.0)
--- NOTE | 2017-05-17 07:44 | RAD ---
PROCEDURE: CHEST RADIOGRAPH, 1 VIEW HISTORY: intubated COMPARISON: Portable chest 05/16/2017. FINDINGS: Endotracheal tube and nasogastric tube are not significant changed in the interval. LUNGS: Retrocardiac atelectasis or infiltrate persists however there is improved aeration at the lateral left base with left hemidiaphragm not well defined reflecting diminishing infiltrate atelectasis and pleural effusion appear trace left pleural effusion not excluded. Limited patchy infiltrate remains in the mid left hilar region. Right lung is clear. Atelectasis resultant volume loss left lung once again with element of hyper inflation of the right lung. PLEURA: No pneumothorax or pleural fluid seen. CARDIOVASCULAR: Normal. OSSEOUS STRUCTURES: No significant abnormalities. VISUALIZED UPPER ABDOMEN: Normal. OTHER FINDINGS: None. IMPRESSION: Mild infra interval improving left-sided infiltrate and reduction in left pleural effusion. None is seen the right.
--- NOTE | 2017-05-17 07:45 | CP.PCM.PN ---
<Vanessa Graham - Last Filed: 05/17/17 07:47> Subjective - Date & Time of Evaluation Date of Evaluation: 05/17/17 Time of Evaluation: 07:00 - Subjective Subjective: General surgery progress note for Dr. Osborne Pt S/e at bedside this AM. NAEO. Patient arousable to verbal stimulation and alert. Objective - Vital Signs/Intake and Output Vital Signs (last 24 hours): Temp Pulse Resp BP Pulse Ox 98.1 F 70 17 156/80 H 100 05/17/17 04:00 05/17/17 06:00 05/17/17 06:00 05/17/17 06:00 05/17/17 06:00 Intake and Output: 05/17/17 05/17/17 06:59 18:59 Intake Total 1570 Output Total 550 Balance 1020 - Medications Medications: Current Medications Acetaminophen (Tylenol 325mg Tab) 650 mg PO Q6 PRN PRN Reason: Pain, Mild (1-3) Last Admin: 05/15/17 13:46 Dose: 650 mg Acetaminophen (Tylenol 650 Mg Supp) 650 mg VT Q6 PRN PRN Reason: Fever >100.4 F Last Admin: 05/11/17 04:50 Dose: 650 mg Albuterol/Ipratropium (Duoneb 3 Mg/0.5 Mg (3 Ml) Ud) 3 ml INH RQID [facility] Last Admin: 05/16/17 19:41 Dose: 3 ml Aspirin (Aspirin Chewable) 81 mg PO DAILY [facility] Last Admin: 05/16/17 11:46 Dose: 81 mg Atorvastatin Calcium (Lipitor) 40 mg PO DAILY [facility] Last Admin: 05/16/17 11:46 Dose: 40 mg Clonidine HCl (Catapres) 0.1 mg PO BID [facility] Last Admin: 05/16/17 16:39 Dose: 0.1 mg Clopidogrel Bisulfate (Plavix) 75 mg PO DAILY [facility] Last Admin: 05/16/17 11:46 Dose: 75 mg Enalaprilat (Vasotec Iv) 1.25 mg IV Q6 [facility] Last Admin: 05/16/17 22:00 Dose: 1.25 mg Enoxaparin Sodium (Lovenox) 40 mg SC DAILY [facility] PRN Reason: Protocol Last Admin: 05/16/17 09:28 Dose: 40 mg Folic Acid (Folic Acid) 1 mg PO DAILY [facility] Last Admin: 05/16/17 11:45 Dose: 1 mg Guaifenesin (Robitussin) 100 mg PO Q6 PRN PRN Reason: Cough Vancomycin HCl 1 gm/ Sodium (Chloride) 250 mls @ 166.667 mls/hr IVPB Q12 [facility] Last Admin: 05/16/17 20:45 Dose: 166.667 mls/hr Meropenem 1 gm/ Sodium (Chloride) 100 mls @ 100 mls/hr IVPB Q8 [facility] Last Admin: 05/17/17 00:15 Dose: 100 mls/hr Lorazepam (Ativan) 1 mg IVP Q6 PRN PRN Reason: Agitation Last Admin: 05/16/17 13:40 Dose: 1 mg Multivitamins/Vitamin C (Multi-Delyn Liquid) 5 ml PO DAILY [facility] Last Admin: 05/16/17 11:43 Dose: 5 ml Pantoprazole Sodium (Protonix Susp) 40 mg PO DAILY [facility] Last Admin: 05/16/17 11:44 Dose: 40 mg Potassium Chloride (K-Dur 20 Meq Er Tab) 20 meq PO ONCE ONE Stop: 05/17/17 07:39 Quetiapine Fumarate (Seroquel) 25 mg PO HS [facility] Last Admin: 05/03/17 22:55 Dose: Not Given Thiamine HCl (Vitamin B1 Tab) 100 mg PO DAILY [facility] Last Admin: 05/16/17 11:46 Dose: 100 mg - Labs Labs: 05/17/17 04:30 05/17/17 04:30 PT 13.8 Seconds (9.8-13.1) H 05/15/17 10:20 INR 1.3 (0.9-1.2) H 05/15/17 10:20 APTT 34.9 Seconds (25.6-37.1) 05/15/17 10:20 - Constitutional Appears: Non-toxic, No Acute Distress - Head Exam Head Exam: ATRAUMATIC, NORMOCEPHALIC - Eye Exam Eye Exam: Normal appearance. absent: Conjunctival injection, Scleral icterus - ENT Exam ENT Exam: Mucous Membranes Moist, Normal Oropharynx - Neck Exam Neck Exam: Normal Inspection - Respiratory Exam Respiratory Exam: absent: Accessory Muscle Use, Respiratory Distress Additional comments: mechanically ventilated - Cardiovascular Exam Cardiovascular Exam: RRR - GI/Abdominal Exam GI & Abdominal Exam: absent: Distended - Extremities Exam Extremities Exam: absent: Calf Tenderness, Pedal Edema, Tenderness - Neurological Exam Neurological Exam: Alert, Awake - Psychiatric Exam Psychiatric exam: Normal Affect, Normal Mood - Skin Skin Exam: Dry, Normal Color, Warm Assessment and Plan - Assessment and Plan (Free Text) Assessment: 56 M with acute respiratory failure and CVA currently on plavix, intubated on K: 3.3 Plan: -Postpone trach today d/t plavix--will need to be held several days prior to surgery -Ok to restart tube feeds from a surgical standpoint -Kdur 20 for hypokalemia -cont ICU management -further recs per attending Seen and discussed with Dr. India Graham, PGY2 <Jeremy Osborne - Last Filed: 05/17/17 10:09> Subjective - Date & Time of Evaluation Time of Evaluation: 10:00 - Subjective Subjective: Patient was seen and examined at the bedside. Agree with resident's note above. Objective - Vital Signs/Intake and Output Vital Signs (last 24 hours): Temp Pulse Resp BP Pulse Ox 97.8 F 66 13 167/88 H 100 05/17/17 07:52 05/17/17 10:00 05/17/17 10:00 05/17/17 10:00 05/17/17 10:00 Intake and Output: 05/17/17 05/17/17 06:59 18:59 Intake Total 1570 450 Output Total 550 Balance 1020 450 - Medications Medications: Current Medications Acetaminophen (Tylenol 325mg Tab) 650 mg PO Q6 PRN PRN Reason: Pain, Mild (1-3) Last Admin: 05/15/17 13:46 Dose: 650 mg Acetaminophen (Tylenol 650 Mg Supp) 650 mg VT Q6 PRN PRN Reason: Fever >100.4 F Last Admin: 05/11/17 04:50 Dose: 650 mg Albuterol/Ipratropium (Duoneb 3 Mg/0.5 Mg (3 Ml) Ud) 3 ml INH RQID [facility] Last Admin: 05/17/17 08:11 Dose: 3 ml Aspirin (Aspirin Chewable) 81 mg PO DAILY [facility] Last Admin: 05/17/17 09:05 Dose: Not Given Atorvastatin Calcium (Lipitor) 40 mg PO DAILY [facility] Last Admin: 05/17/17 09:08 Dose: 40 mg Clonidine HCl (Catapres) 0.1 mg PO BID [facility] Last Admin: 05/17/17 09:05 Dose: 0.1 mg Clopidogrel Bisulfate (Plavix) 75 mg PO DAILY [facility] Last Admin: 05/17/17 09:10 Dose: Not Given Enalapril Maleate (Vasotec) 10 mg PO BID [facility] Enoxaparin Sodium (Lovenox) 40 mg SC DAILY [facility] PRN Reason: Protocol Last Admin: 05/16/17 09:28 Dose: 40 mg Folic Acid (Folic Acid) 1 mg PO DAILY [facility] Last Admin: 05/17/17 09:06 Dose: 1 mg Guaifenesin (Robitussin) 100 mg PO Q6 PRN PRN Reason: Cough Vancomycin HCl 1 gm/ Sodium (Chloride) 250 mls @ 166.667 mls/hr IVPB Q12 [facility] Last Admin: 05/17/17 09:11 Dose: 166.667 mls/hr Meropenem 1 gm/ Sodium (Chloride) 100 mls @ 100 mls/hr IVPB Q8 [facility] Last Admin: 05/17/17 09:08 Dose: 100 mls/hr Lorazepam (Ativan) 1 mg IVP Q6 PRN PRN Reason: Agitation Last Admin: 05/16/17 13:40 Dose: 1 mg Multivitamins/Vitamin C (Multi-Delyn Liquid) 5 ml PO DAILY [facility] Last Admin: 05/17/17 09:10 Dose: 5 ml Pantoprazole Sodium (Protonix Susp) 40 mg PO DAILY [facility] Last Admin: 05/17/17 09:10 Dose: 40 mg Quetiapine Fumarate (Seroquel) 25 mg PO HS [facility] Last Admin: 05/03/17 22:55 Dose: Not Given Thiamine HCl (Vitamin B1 Tab) 100 mg PO DAILY [facility] Last Admin: 05/17/17 09:12 Dose: 100 mg - Labs Labs: 05/17/17 04:30 05/17/17 04:30 PT 13.8 Seconds (9.8-13.1) H 05/15/17 10:20 INR 1.3 (0.9-1.2) H 05/15/17 10:20 APTT 34.9 Seconds (25.6-37.1) 05/15/17 10:20
[2017-05-17] MEDS: Albuterol-Ipratrop 3 mg / 0.5 (3 ml) UD INH SCH ×4 (08:11→19:38)
[2017-05-17] MEDS ORDERED: Potassium Chloride 20 mEq ER Tab PO ONE (08:30)
--- NOTE | 2017-05-17 08:52 | CP.PCM.PN ---
Subjective - Date & Time of Evaluation Date of Evaluation: 05/17/17 Time of Evaluation: 08:30 - Subjective Subjective: Patient seen and examined bedside. Intubated on MV PRVC AC mode 16/450/5/50 % with ABG 42/170/31/7.5 this AM CXR showed significant improvement to left side infiltrate with thick mucoid secretions being suctioned from ET tube Awake and alert , follows simple commands, moves right upper and lower extremity , with left hemiparesis, able to move left hand No acute issues overnight BP 158/76 HR 68 HR 68 afebrile saturating 100 % WBC 10 K Hgb 11 May137 K 3.3 I/O 2660/[address] OGT in place. Feeding on hold this AM for possible peg Objective - Vital Signs/Intake and Output Vital Signs (last 24 hours): Temp Pulse Resp BP Pulse Ox 97.8 F 68 14 158/76 H 100 05/17/17 07:52 05/17/17 07:52 05/17/17 07:52 05/17/17 07:52 05/17/17 07:52 Intake and Output: 05/17/17 05/17/17 06:59 18:59 Intake Total 1570 Output Total 550 Balance 1020 - Medications Medications: Current Medications Acetaminophen (Tylenol 325mg Tab) 650 mg PO Q6 PRN PRN Reason: Pain, Mild (1-3) Last Admin: 05/15/17 13:46 Dose: 650 mg Acetaminophen (Tylenol 650 Mg Supp) 650 mg TN Q6 PRN PRN Reason: Fever >100.4 F Last Admin: 05/11/17 04:50 Dose: 650 mg Albuterol/Ipratropium (Duoneb 3 Mg/0.5 Mg (3 Ml) Ud) 3 ml INH RQID [facility] Last Admin: 05/17/17 08:11 Dose: 3 ml Aspirin (Aspirin Chewable) 81 mg PO DAILY [facility] Last Admin: 05/16/17 11:46 Dose: 81 mg Atorvastatin Calcium (Lipitor) 40 mg PO DAILY [facility] Last Admin: 05/16/17 11:46 Dose: 40 mg Clonidine HCl (Catapres) 0.1 mg PO BID [facility] Last Admin: 05/16/17 16:39 Dose: 0.1 mg Clopidogrel Bisulfate (Plavix) 75 mg PO DAILY [facility] Last Admin: 05/16/17 11:46 Dose: 75 mg Enalaprilat (Vasotec Iv) 1.25 mg IV Q6 [facility] Last Admin: 05/16/17 22:00 Dose: 1.25 mg Enoxaparin Sodium (Lovenox) 40 mg SC DAILY STEPHANI PRN Reason: Protocol Last Admin: 05/16/17 09:28 Dose: 40 mg Folic Acid (Folic Acid) 1 mg PO DAILY [facility] Last Admin: 05/16/17 11:45 Dose: 1 mg Guaifenesin (Robitussin) 100 mg PO Q6 PRN PRN Reason: Cough Vancomycin HCl 1 gm/ Sodium (Chloride) 250 mls @ 166.667 mls/hr IVPB Q12 [facility] Last Admin: 05/16/17 20:45 Dose: 166.667 mls/hr Meropenem 1 gm/ Sodium (Chloride) 100 mls @ 100 mls/hr IVPB Q8 [facility] Last Admin: 05/17/17 00:15 Dose: 100 mls/hr Lorazepam (Ativan) 1 mg IVP Q6 PRN PRN Reason: Agitation Last Admin: 05/16/17 13:40 Dose: 1 mg Multivitamins/Vitamin C (Multi-Delyn Liquid) 5 ml PO DAILY [facility] Last Admin: 05/16/17 11:43 Dose: 5 ml Pantoprazole Sodium (Protonix Susp) 40 mg PO DAILY [facility] Last Admin: 05/16/17 11:44 Dose: 40 mg Quetiapine Fumarate (Seroquel) 25 mg PO HS [facility] Last Admin: 05/03/17 22:55 Dose: Not Given Thiamine HCl (Vitamin B1 Tab) 100 mg PO DAILY [facility] Last Admin: 05/16/17 11:46 Dose: 100 mg - Labs Labs: 05/17/17 04:30 05/17/17 04:30 PT 13.8 Seconds (9.8-13.1) H 05/15/17 10:20 INR 1.3 (0.9-1.2) H 05/15/17 10:20 APTT 34.9 Seconds (25.6-37.1) 05/15/17 10:20 - Constitutional Appears: Other (intubated on MV , awake , alert ) - Head Exam Head Exam: ATRAUMATIC, NORMAL INSPECTION, NORMOCEPHALIC - Eye Exam Eye Exam: EOMI, Normal appearance, PERRL Pupil Exam: NORMAL ACCOMODATION - ENT Exam ENT Exam: Mucous Membranes Dry, Normal Exam - Neck Exam Neck Exam: Full ROM, Normal Inspection - Respiratory Exam Respiratory Exam: Clear to Ausculation Bilateral. absent: Accessory Muscle Use , Rales, Rhonchi, Wheezes, Respiratory Distress - Cardiovascular Exam Cardiovascular Exam: REGULAR RHYTHM, RRR, +S1, +S2. absent: JVD - GI/Abdominal Exam GI & Abdominal Exam: Soft, Normal Bowel Sounds. absent: Distended, Guarding, Tenderness, Rebound - Rectal Exam Rectal Exam: Deferred - Extremities Exam Extremities Exam: Full ROM, Normal Capillary Refill, Normal Inspection. absent : Pedal Edema - Neurological Exam Neurological Exam: Alert, Awake Additional comments: intubated, trying to communicate] with let side hemiparesiss, able to move left hand follows commands - Psychiatric Exam Psychiatric exam: Normal Affect - Skin Skin Exam: Dry, Intact, Normal Color, Warm Assessment and Plan - Assessment and Plan (Free Text) Assessment: 56 y/o homeless male with PMHx significant for HTN, anemia, and EtOH abuse presented to ER with multiple falls and minor head trauma. He stated that he had been feeling 'off balance' and falling more over the past several days. He denied EtOH associated with these falls. Denied any focal weakness, but felt like both his feet were numb (this is ongoing, not new) and also c/o back pain (also chronic); he also felt off balance more lately as well. CT head in ER showed Multiple bilateral lacunar infarcts and severe cortical atrophy. Patient admitted in telemetry for close monitoring. MRI head showed acute right MCA stroke Patient started on ASa, lovenox and statin. Neurology and PT consulted He developed DT-s and was started on gabapentin 300 mg PO TID , Seroquel and Ativan PRN Patient became more lethargic with dyarthria, dysphagia, left facial droop and left side weakness. Repeat MRI of the head showed : Findings compatible with the known recent right basal ganglia infarct. No new areas of infarction seen. No MR evidence of associated hemorrhage. He developed acute hypoxemic respiratory failure on 05/09 likely due to Aspiration PNA, was intubated and transferred to ICU. At present still intubated on MV on FIO2 50 % 1. Acute Respiratory failure with Hypoxia sec to Aspiration Pneumonia Still intubated on MV PRVC/AC mode 16/450/5/50 % with thick yellowish respiratory secretions requiring frequent suctioning but better Sputum cultures growing MRSA and Serratia Marcescen Initial CXR showed total opacification of left lung. Repeat CXR today showing significant improvement of left infiltrate WBC trended down 10 K, afebrile ID consult with Dr. Fritz appreciated and recommended IV Meropenem and Vanco keep head of the bed elevated frequent suctioning and aspiration precautions Was planned for bronchoscopy by pulmonary but given that left lung has much improved there is no need Planned for tracheostomy placement , but procedure on hold since patient is on Plavix and ASA. GI consulted for peg placement . possible peg placement today Pulmonary consult with Dr Garrison on board 2. Acute Ischemic stroke lethargic with dysarthria, dysphagia, left facial droop and left side hemiparesis MRI of the head 04/28 : 1. Acute right MCA territory infarction involving the right narayanan radiata and basal ganglia. 2. Severe chronic microangiopathic changes and mild age-related global parenchymal volume loss. Repeat MRI 05/04 showed known recent basal ganglia infarct no acute changes CTA neck showed no Blood clot , carotid doppler showed no stenosis Echo showed normal EF and wall motion Neurology consult appreciated Repeat CT head showed no hemorrhagic conversion on ASA, statin ,Plavix . Will hold ASA and plavix for trache placement keep head of the bed elevated . EEG: No epileptiform activity PT consulted . He will need YEHUDA placement for physical therapy once stable Will need PEG placement 3.ETOH withdrawal/ Delirium tremens-- resolved but now lethargic due to CVA patient was tachycardic, tremulous, confused with visual hallucinations on admission was initially Started on librium tapering dose-- discontinued due to sedation discussed with neurology who recommended to start patient on gabapentin and Seroquel HS that were discontinued due to lethargy Continue thiamine, folic acid, MVI, Seizure precautions Ativan prn 4. HTN uncontrolled change Enalapril to 10 mg po BID continue Clonidine 5.Thrombocytopenia- improved most likely chronic secondary to ETOH abuse 6.Hypokalemia, replace with Kdur 7. DVT PPx Lovenox
[2017-05-17] MEDS: Pantoprazole 40 mg Susp UD PO SCH (09:10)
[2017-05-17] MEDS: Multiple Vitamins Oral Solution PO SCH (09:10)
[2017-05-17] MEDS: EnalaprilAT 1.25 mg/ml Inj IV SCH (09:11)
--- NOTE | 2017-05-17 10:06 | CP.CCUPN ---
CCU Subjective - Physician Review Events Since Last Encounter (Free Text): 05/17/17 11:14 on vent, sleeping. CCU Objective - Vital Signs / Intake & Output Vital Signs (Last 4 hours): Vital Signs Temp Pulse Resp BP Pulse Ox 05/17/17 09:11 158/76 H 05/17/17 09:05 68 158/76 H 05/17/17 07:52 97.8 F 68 14 158/76 H 100 Intake and Output (Last 8hrs): Intake & Output 05/16/17 05/17/17 05/17/17 22:59 06:59 14:59 Intake Total 1410 900 450 Output Total 550 Balance 1410 350 450 Intake: IV 900 560 Intake, Piggyback 250 100 350 Tube Feeding 160 240 100 Free Water Flush 100 Output: Urine 550 Urine, Voided 550 - Physical Exam Head: Positive for: Atraumatic, Normocephalic Pupils: Positive for: PERRL Extroacular Muscles: Positive for: EOMI Conjunctiva: Positive for: Normal Mouth: Positive for: Moist Mucous Membranes Neck: Negative for: JVD, Bruit Respiratory/Chest: Positive for: Decreased Breath Sounds (left), Rhonchi ( diffuse) Cardiovascular: Positive for: Regular Rate and Rhythm Abdomen: Positive for: Normal Bowel Sounds. Negative for: Tenderness, Distention Upper Extremity: Positive for: Other (spontaneous movement of right arm) Lower Extremity: Positive for: NORMAL PULSES, Other (spontaneous movement of right leg). Negative for: CALF TENDERNESS, Cyanosis Neurological: Positive for: Other (Left hemiplegia) Skin: Positive for: Warm. Negative for: Rashes Psychiatric: Positive for: Alert - Medications Active Medications: Active Medications Generic Name Dose Route Start Last Admin Trade Name Freq PRN Reason Stop Dose Admin Acetaminophen 650 mg 04/27/17 03:51 05/15/17 13:46 Tylenol 325mg Tab PO 650 mg Q6 PRN Administration Pain, Mild (1-3) Acetaminophen 650 mg 05/09/17 12:30 05/11/17 04:50 Tylenol 650 Mg Supp OR 650 mg Q6 PRN Administration Fever >100.4 F Albuterol/Ipratropium 3 ml 05/04/17 20:00 05/17/17 08:11 Duoneb 3 Mg/0.5 Mg (3 Ml) Ud INH 3 ml RQID STEPHANI Administration Aspirin 81 mg 04/27/17 09:00 05/17/17 09:05 Aspirin Chewable PO Not Given DAILY STEPHANI Atorvastatin Calcium 40 mg 04/27/17 09:00 05/17/17 09:08 Lipitor PO 40 mg DAILY STEPH[facility] Administration Clonidine HCl 0.1 mg 05/15/17 17:00 05/17/17 09:05 Catapres PO 0.1 mg BID STEPHANI Administration Clopidogrel Bisulfate 75 mg 05/11/17 17:18 05/17/17 09:10 Plavix PO Not Given DAILY [facility] Enalapril Maleate 10 mg 05/17/17 17:00 Vasotec PO BID [facility] Enoxaparin Sodium 40 mg 04/27/17 09:00 05/16/17 09:28 Lovenox SC 40 mg DAILY STEPHANI Administration Protocol Folic Acid 1 mg 04/27/17 15:15 05/17/17 09:06 Folic Acid PO 1 mg DAILY [facility]PH[facility] Administration Guaifenesin 100 mg 05/09/17 15:26 Robitussin PO Q6 PRN Cough Vancomycin HCl 1 gm/ Sodium 250 mls @ 166.667 mls/hr 05/04/17 21:00 05/17/17 09:11 Chloride IVPB 166.667 mls/hr Q12 STEPHANI Administration Meropenem 1 gm/ Sodium 100 mls @ 100 mls/hr 05/10/17 17:00 05/17/17 09:08 Chloride IVPB 100 mls/hr Q8 [facility] Administration Lorazepam 1 mg 05/10/17 21:57 05/16/17 13:40 Ativan IVP 1 mg Q6 PRN Administration Agitation Multivitamins/Vitamin C 5 ml 04/27/17 15:15 05/17/17 09:10 Multi-Delyn Liquid PO 5 ml DAILY STEPHANI Administration Pantoprazole Sodium 40 mg 05/10/17 09:00 05/17/17 09:10 Protonix Susp PO 40 mg DAILY [facility] Administration Quetiapine Fumarate 25 mg 04/28/17 22:00 05/03/17 22:55 Seroquel PO Not Given HS [facility] Thiamine HCl 100 mg 04/27/17 15:15 05/17/17 09:12 Vitamin B1 Tab PO 100 mg DAILY STEPH[facility] Administration - Patient Studies Lab Studies: Lab Studies 09/05/17 09/05/17 09/05/17 Range/Units 06:22 04:30 04:30 WBC 10.1 (4.8-10.8) K/uL RBC 3.29 L (4.40-5.90) Mil/uL Hgb 11.1 L (12.0-18.0) g/dL Hct 33.1 L (35.0-51.0) % MCV 100.7 H (80.0-94.0) fl MCH 33.8 H (27.0-31.0) pg MCHC 33.5 (33.0-37.0) g/dL RDW 13.8 (11.5-14.5) % Plt Count 158 (130-400) K/uL pCO2 42 (35-45) mm/Hg pO2 170 H (80-100) mm/Hg HCO3 31.8 H (21-28) mmol/L ABG pH 7.50 H (7.35-7.45) ABG Total CO2 34.1 H (22-28) mmol/L ABG O2 Saturation 99.2 H (95-98) % ABG O2 Content 15.2 (15-23) ML/dL ABG Base Excess 8.8 H (-2.0-3.0) mmol/L ABG Hemoglobin 10.9 L (11.7-17.4) g/dL ABG Carboxyhemoglobin 0.9 (0.5-1.5) % POC ABG HHb (Measured) 0.8 (0.0-5.0) % ABG Methemoglobin 1.5 (0.0-3.0) % ABG O2 Capacity 15.3 L (16-24) mL/dL Carson Test Yes A-a O2 Difference 134.0 mm/Hg Hgb O2 Saturation 96.8 (95.0-98.0) % Vent Mode A/c Mechanical Rate 16 FiO2 50.0 % Tidal Volume 450 PEEP 5 Sodium 134 (132-148) mmol/l Potassium 3.3 L (3.6-5.0) MMOL/L Chloride 99 (98-107) mmol/L Carbon Dioxide 29 (22-30) mmol/L Anion Gap 9 L (10-20) BUN 9 (9-20) mg/dl Creatinine 0.4 L (0.8-1.5) mg/dL Est GFR ( Amer) > 60 Est GFR (Non-Af Amer) > 60 Random Glucose 108 (75-110) mg/dL Calcium 8.7 (8.4-10.2) mg/dL Laboratory Results - last 24 hr 05/17/17 05/17/17 05/17/17 04:30 04:30 06:22 WBC 10.1 RBC 3.29 L Hgb 11.1 L Hct 33.1 L MCV 100.7 H MCH 33.8 H MCHC 33.5 RDW 13.8 Plt Count 158 pCO2 42 pO2 170 H HCO3 31.8 H ABG pH 7.50 H ABG Total CO2 34.1 H ABG O2 Saturation 99.2 H ABG O2 Content 15.2 ABG Base Excess 8.8 H ABG Hemoglobin 10.9 L ABG Carboxyhemoglobin 0.9 POC ABG HHb (Measured) 0.8 ABG Methemoglobin 1.5 ABG O2 Capacity 15.3 L Carson Test Yes A-a O2 Difference 134.0 Hgb O2 Saturation 96.8 Vent Mode A/c Mechanical Rate 16 FiO2 50.0 Tidal Volume 450 PEEP 5 Sodium 134 Potassium 3.3 L Chloride 99 Carbon Dioxide 29 Anion Gap 9 L BUN 9 Creatinine 0.4 L Est GFR ( Amer) > 60 Est GFR (Non-Af Amer) > 60 Random Glucose 108 Calcium 8.7 Critical Care Progress Note - Nutrition Nutrition: Nutrition Category Date Time Status NPO Diet [DIET] Diets 05/16/17 Breakfast Active Assessment/Plan (1) CVA (cerebral vascular accident) Assessment and plan: 56yo M. PMHx HTN, anemia, ETOH abuse, homeless. p/w ataxia and falls (04/26). Found to have multiple bilateral lacunae/infarcts and severe cortical atrophy. (05/04) MRI - right basal ganglia infarct. Patient's mental status has slowly declined, requiring intubation (05/09). Neuro: continue Seroquel po qhs. Pulm: Acute respiratory failure with hypoxia, intubated now on vent. Chest x- ray is indicative of aspiration pneumonia with consolidation in the left lower lobe, continue IV antibiotics, DuoNeb's, mucolytic's. Patient will need trach for airway protection, slowly aspirating his own secretions. Surgery consulted , will place on Tuesday, with ASA/Plavix stopped. CV: Hemodynamically stable. HTN controlled with Clonidine po bid, enalaprilat IV q6h. Hem: No acute issues, stopped ASA and Plavix for procedures. Renal: No acute issues, urine output within normal limits, we will monitor. Endo: No acute issues GI: Nothing by mouth, Tube feeds Jevity@50. Free water 145 ml q4h. GI consulted for PEG placement. ID: Severe sepsis from aspiration pneumonia, continue vancomycin and Meropenem. DVT proph - Lovenox GI proph - Protonix lew for strict I/O's during acute illness Code status - full code Critical Care Time 35 minutes Multi-disciplinary rounds were performed with house staff, nursing, speech therapy, respiratory therapy, pharmacy and nutrition with integrated input from the primary team/attending and other consulting services. The documented time is cumulative and includes review of patient data/exams/labs/chart review and examination of the patient on rounds and throughout the day; time is exclusive of any procedures or teaching time. Current Visit: Yes Status: Deleted Priority: High
[2017-05-17] MEDS ORDERED: EPINEPHrine 1 mg/ml (1:1000) Inj ONE (11:04)
--- NOTE | 2017-05-17 12:07 | CP.PCM.PN ---
<Nati Glover - Last Filed: 05/17/17 12:09> Subjective - Date & Time of Evaluation Date of Evaluation: 05/17/17 Time of Evaluation: 07:00 - Subjective Subjective: PGY4 GI Follow-up Pt seen and examined bedside No acute overnight events as per staff Still intubated Opens eyes when spoken too and follows simple commands Feeds stopped since midnight ROS: could not obtain 2/2 intubation and non-verbal state Objective - Vital Signs/Intake and Output Vital Signs (last 24 hours): Temp Pulse Resp BP Pulse Ox 97.8 F 66 13 167/88 H 100 05/17/17 07:52 05/17/17 10:00 05/17/17 10:00 05/17/17 10:00 05/17/17 10:00 Intake and Output: 05/17/17 05/17/17 06:59 18:59 Intake Total 1570 450 Output Total 550 Balance 1020 450 - Medications Medications: Current Medications Acetaminophen (Tylenol 325mg Tab) 650 mg PO Q6 PRN PRN Reason: Pain, Mild (1-3) Last Admin: 05/15/17 13:46 Dose: 650 mg Acetaminophen (Tylenol 650 Mg Supp) 650 mg OR Q6 PRN PRN Reason: Fever >100.4 F Last Admin: 05/11/17 04:50 Dose: 650 mg Albuterol/Ipratropium (Duoneb 3 Mg/0.5 Mg (3 Ml) Ud) 3 ml INH RQID [facility] Last Admin: 05/17/17 11:34 Dose: 3 ml Aspirin (Aspirin Chewable) 81 mg PO DAILY [facility] Last Admin: 05/17/17 09:05 Dose: Not Given Atorvastatin Calcium (Lipitor) 40 mg PO DAILY [facility] Last Admin: 05/17/17 09:08 Dose: 40 mg Clonidine HCl (Catapres) 0.1 mg PO BID [facility] Last Admin: 05/17/17 09:05 Dose: 0.1 mg Clopidogrel Bisulfate (Plavix) 75 mg PO DAILY [facility] Last Admin: 05/17/17 09:10 Dose: Not Given Enalapril Maleate (Vasotec) 10 mg PO BID [facility] Enoxaparin Sodium (Lovenox) 40 mg SC DAILY [facility] PRN Reason: Protocol Last Admin: 05/16/17 09:28 Dose: 40 mg Folic Acid (Folic Acid) 1 mg PO DAILY [facility] Last Admin: 05/17/17 09:06 Dose: 1 mg Guaifenesin (Robitussin) 100 mg PO Q6 PRN PRN Reason: Cough Vancomycin HCl 1 gm/ Sodium (Chloride) 250 mls @ 166.667 mls/hr IVPB Q12 [facility] Last Admin: 05/17/17 09:11 Dose: 166.667 mls/hr Meropenem 1 gm/ Sodium (Chloride) 100 mls @ 100 mls/hr IVPB Q8 [facility] Last Admin: 05/17/17 09:08 Dose: 100 mls/hr Lorazepam (Ativan) 1 mg IVP Q6 PRN PRN Reason: Agitation Last Admin: 05/16/17 13:40 Dose: 1 mg Multivitamins/Vitamin C (Multi-Delyn Liquid) 5 ml PO DAILY [facility] Last Admin: 05/17/17 09:10 Dose: 5 ml Pantoprazole Sodium (Protonix Susp) 40 mg PO DAILY [facility] Last Admin: 05/17/17 09:10 Dose: 40 mg Quetiapine Fumarate (Seroquel) 25 mg PO HS [facility] Last Admin: 05/03/17 22:55 Dose: Not Given Thiamine HCl (Vitamin B1 Tab) 100 mg PO DAILY [facility] Last Admin: 05/17/17 09:12 Dose: 100 mg - Labs Labs: 05/17/17 04:30 05/17/17 04:30 PT 13.8 Seconds (9.8-13.1) H 05/15/17 10:20 INR 1.3 (0.9-1.2) H 05/15/17 10:20 APTT 34.9 Seconds (25.6-37.1) 05/15/17 10:20 - Constitutional Appears: No Acute Distress, Chronically Ill - Head Exam Head Exam: ATRAUMATIC, NORMOCEPHALIC - Eye Exam Eye Exam: Normal appearance - ENT Exam ENT Exam: Mucous Membranes Moist, Normal Exam - Respiratory Exam Respiratory Exam: Rhonchi, Wheezes. absent: Rales, Respiratory Distress - GI/Abdominal Exam GI & Abdominal Exam: Soft, Normal Bowel Sounds. absent: Firm, Guarding, Rigid, Tenderness, Organomegaly - Extremities Exam Extremities Exam: absent: Joint Swelling, Pedal Edema - Neurological Exam Neurological Exam: Awake - Psychiatric Exam Additional comments: could not assess - Skin Skin Exam: Dry, Intact, Normal Color, Warm Assessment and Plan - Assessment and Plan (Free Text) Assessment: his is a 56yM with a hx of alcohol abuse, HTN, CBP s/p fall and found to have a Acute CVA with left sided weakness, dysarthria and dysphagia. Request for PEG tube placement. 1. Respiratory failure s/p intubation and MV 2. Aspiration PNA 3. Dyphagia with aspiration due to CVA 4. Acute CVA- Right Basal ganglia, narayanan radiata infarct 5. Macrocytic Anemia 6. ETOH abuse/dependence s/p DTs Plan: -could not establish a clear Power of assistant district attorney or Health Proxy -Spoke with Pastor Pt's nephew, he does not have legal precedence as of today, he is in the process of obtaining -Will need to be ethics on board and clearly document who we can obtain consent from -Continue treatment for aspiration PNA with sputum cx positive for MRSA, abx therapy per ID -Aspiration precautions, seizure precautions -Can continue TF through OG tube -Prefer to hold plavix for 5 days prior to PEG tube placement however, as per conversation when neurologist previously, there concern about continued embolic events and recommendation to continue plavix and ASA -If we cannot stop plavix, we can still procede with the procedure as high risk for bleeding, but need to get clear consent by the appropriate POA -PEG tube will be placed once the above is accomplished. D/W Dr. Tolbert <[facility] - Last Filed: 05/17/17 13:29> Objective - Vital Signs/Intake and Output Vital Signs (last 24 hours): Temp Pulse Resp BP Pulse Ox 99.3 F 72 16 158/79 H 100 05/17/17 12:00 05/17/17 12:00 05/17/17 12:00 05/17/17 12:00 05/17/17 12:00 Intake and Output: 05/17/17 05/17/17 06:59 18:59 Intake Total 1570 450 Output Total 550 Balance 1020 450 - Medications Medications: Current Medications Acetaminophen (Tylenol 325mg Tab) 650 mg PO Q6 PRN PRN Reason: Pain, Mild (1-3) Last Admin: 05/15/17 13:46 Dose: 650 mg Acetaminophen (Tylenol 650 Mg Supp) 650 mg OR Q6 PRN PRN Reason: Fever >100.4 F Last Admin: 05/11/17 04:50 Dose: 650 mg Albuterol/Ipratropium (Duoneb 3 Mg/0.5 Mg (3 Ml) Ud) 3 ml INH RQID [facility] Last Admin: 05/17/17 11:34 Dose: 3 ml Aspirin (Aspirin Chewable) 81 mg PO DAILY [facility] Last Admin: 05/17/17 09:05 Dose: Not Given Atorvastatin Calcium (Lipitor) 40 mg PO DAILY [facility] Last Admin: 05/17/17 09:08 Dose: 40 mg Clonidine HCl (Catapres) 0.1 mg PO BID [facility] Last Admin: 05/17/17 09:05 Dose: 0.1 mg Clopidogrel Bisulfate (Plavix) 75 mg PO DAILY [facility] Last Admin: 05/17/17 09:10 Dose: Not Given Enalapril Maleate (Vasotec) 10 mg PO BID [facility] Enoxaparin Sodium (Lovenox) 40 mg SC DAILY [facility] PRN Reason: Protocol Last Admin: 05/17/17 12:10 Dose: 40 mg Folic Acid (Folic Acid) 1 mg PO DAILY [facility] Last Admin: 05/17/17 09:06 Dose: 1 mg Guaifenesin (Robitussin) 100 mg PO Q6 PRN PRN Reason: Cough Vancomycin HCl 1 gm/ Sodium (Chloride) 250 mls @ 166.667 mls/hr IVPB Q12 [facility] Last Admin: 05/17/17 09:11 Dose: 166.667 mls/hr Meropenem 1 gm/ Sodium (Chloride) 100 mls @ 100 mls/hr IVPB Q8 [facility] Last Admin: 05/17/17 09:08 Dose: 100 mls/hr Potassium Chloride/Dextrose/Sod Cl (Potassium Chl 20 Meq In D5-1/2ns) 1,000 mls @ 80 mls/hr IV .[id number] [facility] Stop: 05/18/17 12:23 Lorazepam (Ativan) 1 mg IVP Q6 PRN PRN Reason: Agitation Last Admin: 05/16/17 13:40 Dose: 1 mg Multivitamins/Vitamin C (Multi-Delyn Liquid) 5 ml PO DAILY [facility] Last Admin: 05/17/17 09:10 Dose: 5 ml Pantoprazole Sodium (Protonix Susp) 40 mg PO DAILY [facility] Last Admin: 05/17/17 09:10 Dose: 40 mg Quetiapine Fumarate (Seroquel) 25 mg PO HS [facility] Last Admin: 05/03/17 22:55 Dose: Not Given Thiamine HCl (Vitamin B1 Tab) 100 mg PO DAILY [facility] Last Admin: 05/17/17 09:12 Dose: 100 mg - Labs Labs: 05/17/17 04:30 05/17/17 04:30 PT 13.8 Seconds (9.8-13.1) H 05/15/17 10:20 INR 1.3 (0.9-1.2) H 05/15/17 10:20 APTT 34.9 Seconds (25.6-37.1) 05/15/17 10:20 Attending/Attestation - Attestation I have personally seen and examined this patient.: Yes I have fully participated in the care of the patient.: Yes I have reviewed all pertinent clinical information, including history, physical exam and plan: Yes Notes (Text): 05/17/17 13:25 56 yr old M with a hx of alcohol abuse, HTN, CBP s/p fall and found to have a Acute CVA with left sided weakness, dysarthria and dysphagia. Request for PEG tube placement. Unable to establish clear power of attroney for peg placement consent. Spoke to nephmonica Baumann who does not ahve POA and patient has a legal daughter. Discussed with MICU to get ethics involved for elective gastrostomy tube placement which is a high risk procedure. Plan: -could not establish a clear Power of assistant district attorney or Health Proxy -Spoke with Pastor, Pt's nephew, he does not have legal precedence as of today, he is in the process of obtaining -Will need to be ethics on board and clearly document who we can obtain consent from -Continue treatment for aspiration PNA with sputum cx positive for MRSA, abx therapy per ID -Aspiration precautions, seizure precautions -Can continue TF through OG tube -Prefer to hold plavix for 5 days prior to PEG tube placement however, as per conversation when neurologist previously, there concern about continued embolic events and recommendation to continue plavix and ASA -If we cannot stop plavix, we can still procede with the procedure as high risk for bleeding, but need to get clear consent by the appropriate POA -PEG tube will be placed once the above is accomplish
[2017-05-17] MEDS: Enoxaparin 40 mg Syringe SC SCH (12:10)
--- NOTE | 2017-05-17 12:17 | CP.PCM.PN ---
Subjective - Date & Time of Evaluation Date of Evaluation: 05/17/17 Time of Evaluation: 12:00 - Subjective Subjective: F/U Respiratory Failure. Response to tactil stimuli , eyes open , not following commands Objective - Vital Signs/Intake and Output Vital Signs (last 24 hours): Temp Pulse Resp BP Pulse Ox 97.8 F 66 13 167/88 H 100 05/17/17 07:52 05/17/17 10:00 05/17/17 10:00 05/17/17 10:00 05/17/17 10:00 Intake and Output: 05/17/17 05/17/17 06:59 18:59 Intake Total 1570 450 Output Total 550 Balance 1020 450 - Medications Medications: Current Medications Acetaminophen (Tylenol 325mg Tab) 650 mg PO Q6 PRN PRN Reason: Pain, Mild (1-3) Last Admin: 05/15/17 13:46 Dose: 650 mg Acetaminophen (Tylenol 650 Mg Supp) 650 mg DC Q6 PRN PRN Reason: Fever >100.4 F Last Admin: 05/11/17 04:50 Dose: 650 mg Albuterol/Ipratropium (Duoneb 3 Mg/0.5 Mg (3 Ml) Ud) 3 ml INH RQID [facility] Last Admin: 05/17/17 11:34 Dose: 3 ml Aspirin (Aspirin Chewable) 81 mg PO DAILY [facility] Last Admin: 05/17/17 09:05 Dose: Not Given Atorvastatin Calcium (Lipitor) 40 mg PO DAILY [facility] Last Admin: 05/17/17 09:08 Dose: 40 mg Clonidine HCl (Catapres) 0.1 mg PO BID [facility] Last Admin: 05/17/17 09:05 Dose: 0.1 mg Clopidogrel Bisulfate (Plavix) 75 mg PO DAILY [facility] Last Admin: 05/17/17 09:10 Dose: Not Given Enalapril Maleate (Vasotec) 10 mg PO BID [facility] Enoxaparin Sodium (Lovenox) 40 mg SC DAILY [facility] PRN Reason: Protocol Last Admin: 05/17/17 12:10 Dose: 40 mg Folic Acid (Folic Acid) 1 mg PO DAILY [facility] Last Admin: 05/17/17 09:06 Dose: 1 mg Guaifenesin (Robitussin) 100 mg PO Q6 PRN PRN Reason: Cough Vancomycin HCl 1 gm/ Sodium (Chloride) 250 mls @ 166.667 mls/hr IVPB Q12 [facility] Last Admin: 05/17/17 09:11 Dose: 166.667 mls/hr Meropenem 1 gm/ Sodium (Chloride) 100 mls @ 100 mls/hr IVPB Q8 [facility] Last Admin: 05/17/17 09:08 Dose: 100 mls/hr Lorazepam (Ativan) 1 mg IVP Q6 PRN PRN Reason: Agitation Last Admin: 05/16/17 13:40 Dose: 1 mg Multivitamins/Vitamin C (Multi-Delyn Liquid) 5 ml PO DAILY [facility] Last Admin: 05/17/17 09:10 Dose: 5 ml Pantoprazole Sodium (Protonix Susp) 40 mg PO DAILY [facility] Last Admin: 05/17/17 09:10 Dose: 40 mg Quetiapine Fumarate (Seroquel) 25 mg PO HS [facility] Last Admin: 05/03/17 22:55 Dose: Not Given Thiamine HCl (Vitamin B1 Tab) 100 mg PO DAILY [facility] Last Admin: 05/17/17 09:12 Dose: 100 mg - Labs Labs: 05/17/17 04:30 05/17/17 04:30 PT 13.8 Seconds (9.8-13.1) H 05/15/17 10:20 INR 1.3 (0.9-1.2) H 05/15/17 10:20 APTT 34.9 Seconds (25.6-37.1) 05/15/17 10:20 - Constitutional Appears: Chronically Ill - Head Exam Head Exam: NORMAL INSPECTION - Eye Exam Eye Exam: PERRL - ENT Exam Additional comments: Intubated - Neck Exam Neck Exam: Normal Inspection - Respiratory Exam Respiratory Exam: Decreased Breath Sounds, Rhonchi (few at bases) - Cardiovascular Exam Cardiovascular Exam: REGULAR RHYTHM - GI/Abdominal Exam GI & Abdominal Exam: Soft, Normal Bowel Sounds - Extremities Exam Extremities Exam: absent: Pedal Edema - Back Exam Back Exam: NORMAL INSPECTION - Neurological Exam Additional comments: response to tactile stimuli, no response to verbal stimuli, spontaneous movements upper extremities, L side weakness. - Skin Skin Exam: Warm Assessment and Plan (1) Acute respiratory failure Status: Acute (2) MRSA pneumonia Status: Acute (3) Acute right MCA stroke Status: Acute - Assessment and Plan (Free Text) Plan: CT Chest worsening PNA, Patient will need Bronchoscopy , attempt to get consent, continue Merren , Vanco , ventilatory support, if unable to wean Patient will need Tracheostomy next week , GI also attempting to get consent for PEG tube insertion. ICU Time: 35 min.
[2017-05-17] MEDS: Potassium Ch 20mEq in D5-1/2NS 1,000 ML IV SCH (15:56)
--- NOTE | 2017-05-17 18:51 | CT ---
PROCEDURE: CT Chest without contrast HISTORY: assess pneumonia COMPARISON: Comparison is made to the previous study dated 05/11/2017 TECHNIQUE: Contiguous axial images were obtained through the chest without intravenous contrast enhancement. Sagittal and coronal reconstructions were performed. Radiation dose (DLP): 603.1 mGy-cm. This CT exam was performed using one or more of the following dose reduction techniques: Automated exposure control, adjustment of the mA and/or kV according to patient size, and/or use of iterative reconstruction technique. FINDINGS: LUNGS: Interval decrease in the size of the previously seen airspace consolidation at the left lung since the previous exam. Re- demonstration of reticulonodular opacities at the left upper lobe. Persistent almost complete consolidation of the left lower lobe. No significant interval change in the right lung. The ET tube is seen at appropriate position. MEDIASTINUM: The thoracic aorta is ectatic and tortuous. The heart is mildly enlarged. The main pulmonary artery is mildly enlarged. Mildly enlarged left mediastinal lymph nodes are again seen. PLEURA: There is interval mild increase in the size of the left pleural effusion since the previous exam. No evidence of right pleural effusion. BONES: No fracture. No destructive lesion. UPPER ABDOMEN: The NG tube seen extending to the stomach. No significant interval change in the upper abdomen OTHER FINDINGS: None. IMPRESSION: Interval decrease in the size of the airspace consolidation at the left upper lobe since the previous exam. Persistent diffuse reticular nodular opacities in the left upper lobe and persistent almost complete collapse of the left lower lobe. Interval mild increase in the size of the left pleural effusion since the previous study.
--- NOTE | 2017-05-17 23:05 | CP.PCM.CON ---
Past Patient History - Past Medical History & Family History Past Medical History?: Yes - Past Social History Smoking Status: Light Smoker < 10 Cigarettes Daily Alcohol: Occasional Drugs: Denies Home Situation {Lives}: Homeless - CARDIAC Hx Cardiac Disorders: Yes Hx Hypertension: Yes - PULMONARY Hx Respiratory Disorders: No Hx Tuberculosis: No - NEUROLOGICAL Hx Neurological Disorder: No HX Cerebrovascular Accident: No - HEENT Hx HEENT Problems: No - RENAL Hx Chronic Kidney Disease: No - ENDOCRINE/METABOLIC Hx Endocrine Disorders: No - HEMATOLOGICAL/ONCOLOGICAL Hx Blood Disorders: Yes Hx Anemia: Yes Hx Human Immunodeficiency Virus (HIV): No - INTEGUMENTARY Hx Dermatological Problems: No - MUSCULOSKELETAL/RHEUMATOLOGICAL Hx Musculoskeletal Disorders: Yes Hx Arthritis: Yes Hx Back Pain: Yes - GASTROINTESTINAL Hx Gastrointestinal Disorders: Yes Hx Colitis: Yes - GENITOURINARY/GYNECOLOGICAL Hx Genitourinary Disorders: No - PSYCHIATRIC Hx Psychophysiologic Disorder: No Hx Substance Use: No Other/Comment: ETOH abuse - SURGICAL HISTORY Hx Surgeries: Yes Other/Comment: hemmroids - ANESTHESIA Hx Anesthesia: Yes Hx Anesthesia Reactions: No Hx Malignant Hyperthermia: No Meds Allergies/Adverse Reactions: Allergies Allergy/AdvReac Type Severity Reaction Status Date / Time No Known Allergies Allergy Verified 04/26/17 23:00 - Medications Medications: Current Medications Acetaminophen (Tylenol 325mg Tab) 650 mg PO Q6 PRN PRN Reason: Pain, Mild (1-3) Last Admin: 05/15/17 13:46 Dose: 650 mg Acetaminophen (Tylenol 650 Mg Supp) 650 mg GA Q6 PRN PRN Reason: Fever >100.4 F Last Admin: 05/11/17 04:50 Dose: 650 mg Albuterol/Ipratropium (Duoneb 3 Mg/0.5 Mg (3 Ml) Ud) 3 ml INH RQID [facility] Last Admin: 05/17/17 19:38 Dose: 3 ml Aspirin (Aspirin Chewable) 81 mg PO DAILY [facility] Last Admin: 05/17/17 09:05 Dose: Not Given Atorvastatin Calcium (Lipitor) 40 mg PO DAILY [facility] Last Admin: 05/17/17 09:08 Dose: 40 mg Clonidine HCl (Catapres) 0.1 mg PO BID [facility] Last Admin: 05/17/17 16:17 Dose: 0.1 mg Clopidogrel Bisulfate (Plavix) 75 mg PO DAILY [facility] Last Admin: 05/17/17 09:10 Dose: Not Given Enalapril Maleate (Vasotec) 10 mg PO BID [facility] Last Admin: 05/17/17 16:19 Dose: 10 mg Enoxaparin Sodium (Lovenox) 40 mg SC DAILY [facility] PRN Reason: Protocol Last Admin: 05/17/17 12:10 Dose: 40 mg Folic Acid (Folic Acid) 1 mg PO DAILY [facility] Last Admin: 05/17/17 09:06 Dose: 1 mg Guaifenesin (Robitussin) 100 mg PO Q6 PRN PRN Reason: Cough Vancomycin HCl 1 gm/ Sodium (Chloride) 250 mls @ 166.667 mls/hr IVPB Q12 [facility] Last Admin: 05/17/17 20:11 Dose: 166.667 mls/hr Meropenem 1 gm/ Sodium (Chloride) 100 mls @ 100 mls/hr IVPB Q8 [facility] Last Admin: 05/17/17 16:18 Dose: 100 mls/hr Potassium Chloride/Dextrose/Sod Cl (Potassium Chl 20 Meq In D5-1/2ns) 1,000 mls @ 80 mls/hr IV .[id number] [facility] Stop: 05/18/17 12:23 Last Admin: 05/17/17 15:56 Dose: 80 mls/hr Lorazepam (Ativan) 1 mg IVP Q6 PRN PRN Reason: Agitation Last Admin: 05/17/17 21:56 Dose: 1 mg Multivitamins/Vitamin C (Multi-Delyn Liquid) 5 ml PO DAILY [facility] Last Admin: 05/17/17 09:10 Dose: 5 ml Pantoprazole Sodium (Protonix Susp) 40 mg PO DAILY [facility] Last Admin: 05/17/17 09:10 Dose: 40 mg Quetiapine Fumarate (Seroquel) 25 mg PO HS [facility] Last Admin: 05/03/17 22:55 Dose: Not Given Thiamine HCl (Vitamin B1 Tab) 100 mg PO DAILY [facility] Last Admin: 05/17/17 09:12 Dose: 100 mg Results - Vital Signs Recent Vital Signs: Last Vital Signs Temp 98.2 F 05/17/17 20:00 Pulse 81 05/17/17 20:00 Resp 18 05/17/17 20:00 BP 151/91 H 05/17/17 20:00 Pulse Ox 100 05/17/17 20:00 - Labs Result Diagrams: 05/17/17 04:30 05/17/17 04:30 Labs: Laboratory Results - last 24 hr 05/17/17 05/17/17 05/17/17 04:30 04:30 06:22 WBC 10.1 RBC 3.29 L Hgb 11.1 L Hct 33.1 L MCV 100.7 H MCH 33.8 H MCHC 33.5 RDW 13.8 Plt Count 158 pCO2 42 pO2 170 H HCO3 31.8 H ABG pH 7.50 H ABG Total CO2 34.1 H ABG O2 Saturation 99.2 H ABG O2 Content 15.2 ABG Base Excess 8.8 H ABG Hemoglobin 10.9 L ABG Carboxyhemoglobin 0.9 POC ABG HHb (Measured) 0.8 ABG Methemoglobin 1.5 ABG O2 Capacity 15.3 L Carson Test Yes A-a O2 Difference 134.0 Hgb O2 Saturation 96.8 Vent Mode A/c Mechanical Rate 16 FiO2 50.0 Tidal Volume 450 PEEP 5 Sodium 134 Potassium 3.3 L Chloride 99 Carbon Dioxide 29 Anion Gap 9 L BUN 9 Creatinine 0.4 L Est GFR ( Amer) > 60 Est GFR (Non-Af Amer) > 60 Random Glucose 108 Calcium 8.7 Assessment & Plan - Assessment and Plan (Free Text) Assessment: Called to ICU to evaluate endotracheal tube. Pt is intubated but team having difficulty ventilating and machine unable to deliver volumes. Pt still saturating 97% but displayed labored breathing. Vent reports high pressure. Attempted to manually ventilate with Ambu bag. Extremely hard to squeeze bag. Attempted suctioning but could not pass catheter deep. Respiratory therapist attempts saline lavage with 10cc syringe. Successful briefly before tube is clogged again. Decision made to reintubate with new ETT. Mac 4 used, view=MP grade I. Old ETT pulled, distal end completely impacted with thick solid mucus. Reintubated with ETT 8.0. Ventilation via Ambu bag now easy. Reattached to ventilator. No longer displaying high pressures. New tube is clean now but unknown what is in bronchi and bronchioles distal to tube. Hi chance of re-clogging. Pt may need bronchoscopy and lavage.
[2017-05-17] MEDS ORDERED: Labetalol 5 mg/ml Inj 20ML IVP ONE (23:29)
[2017-05-18 05:22] LABS: ABG ALLEN TEST YES; ABG MECHANICAL RATE 16; ARTERIAL BLOOD GAS HCO3 31.9 mmol/L (21-28); ARTERIAL BLOOD GAS MODE A/C; ARTERIAL BLOOD GAS O2 CAPACITY 14.3 mL/dL (16-24); ARTERIAL BLOOD GAS O2 CONTENT 14.2 ML/dL (15-23); ARTERIAL BLOOD GAS PH 7.51 (7.35-7.45); ARTERIAL BLOOD GAS PO2 149 mm/Hg (80-100); ARTERIAL BLOOD HGB O2 SAT 96.6 % (95.0-98.0); ATERIAL BLOOD GAS PEEP 5; CARBOXYHEMOGLOBIN 0.8 % (0.5-1.5); HHB 0.9 % (0.0-5.0); METHEMOGLOBIN 1.7 % (0.0-3.0)
[2017-05-18 05:28] LABS: HEMATOCRIT 29.2 % (35.0-51.0); MEAN CELL VOLUME 100.7 fl (80.0-94.0); MEAN CORPUSCULAR HEMOGLOBIN 33.4 pg (27.0-31.0); MEAN CORPUSCULAR HGB CONC 33.2 g/dL (33.0-37.0); RED CELL DISTRIBUTION WIDTH 13.9 % (11.5-14.5); WHITE BLOOD COUNT 11.7 K/uL (4.8-10.8)
[2017-05-18 05:30] LABS: BLOOD UREA NITROGEN 8 mg/dl (9-20); CALCIUM 8.2 mg/dL (8.4-10.2); CARBON DIOXIDE 29 mmol/L (22-30); CHLORIDE 98 mmol/L (98-107); GFR AFRICAN-AMERICAN > 60; GLUCOSE,RANDOM 108 mg/dL (75-110); POTASSIUM 3.3 MMOL/L (3.6-5.0); SODIUM 134 mmol/l (132-148)
--- NOTE | 2017-05-18 07:05 | CP.PCM.PN ---
<Vanessa Graham - Last Filed: 05/18/17 07:07> Subjective - Date & Time of Evaluation Date of Evaluation: 05/18/17 Time of Evaluation: 06:30 - Subjective Subjective: General Surgery progress note for Dr. Osborne Patient s/e at bedside this AM. Overnight patient de-satted due to a mucous plug in the ETT and had to be re-intubated with resolution of hypoxia afterwards. Patient currently stable, sleeping well with no acute distress. Objective - Vital Signs/Intake and Output Vital Signs (last 24 hours): Temp Pulse Resp BP Pulse Ox 98.5 F 63 16 132/75 100 05/18/17 04:00 05/18/17 06:00 05/18/17 06:00 05/18/17 06:00 05/18/17 06:00 Intake and Output: 05/18/17 05/18/17 06:59 18:59 Intake Total 1685 Balance 1685 - Medications Medications: Current Medications Acetaminophen (Tylenol 325mg Tab) 650 mg PO Q6 PRN PRN Reason: Pain, Mild (1-3) Last Admin: 05/15/17 13:46 Dose: 650 mg Acetaminophen (Tylenol 650 Mg Supp) 650 mg UT Q6 PRN PRN Reason: Fever >100.4 F Last Admin: 05/11/17 04:50 Dose: 650 mg Albuterol/Ipratropium (Duoneb 3 Mg/0.5 Mg (3 Ml) Ud) 3 ml INH RQID [facility] [place] Last Admin: 05/17/17 19:38 Dose: 3 ml Aspirin (Aspirin Chewable) 81 mg PO DAILY [facility] [place] Last Admin: 05/17/17 09:05 Dose: Not Given Atorvastatin Calcium (Lipitor) 40 mg PO DAILY [facility] [place] Last Admin: 05/17/17 09:08 Dose: 40 mg Clonidine HCl (Catapres) 0.1 mg PO BID [facility] [place] Last Admin: 05/17/17 16:17 Dose: 0.1 mg Clopidogrel Bisulfate (Plavix) 75 mg PO DAILY [facility] [place] Last Admin: 05/17/17 09:10 Dose: Not Given Enalapril Maleate (Vasotec) 10 mg PO BID [facility] [place] Last Admin: 05/17/17 16:19 Dose: 10 mg Enoxaparin Sodium (Lovenox) 40 mg SC DAILY [facility] [place] PRN Reason: Protocol Last Admin: 05/17/17 12:10 Dose: 40 mg Folic Acid (Folic Acid) 1 mg PO DAILY [facility] [place] Last Admin: 05/17/17 09:06 Dose: 1 mg Guaifenesin (Robitussin) 100 mg PO Q6 PRN PRN Reason: Cough Vancomycin HCl 1 gm/ Sodium (Chloride) 250 mls @ 166.667 mls/hr IVPB Q12 [facility] [place] Last Admin: 05/17/17 20:11 Dose: 166.667 mls/hr Meropenem 1 gm/ Sodium (Chloride) 100 mls @ 100 mls/hr IVPB Q8 [facility] [place] Last Admin: 05/18/17 00:00 Dose: 100 mls/hr Potassium Chloride/Dextrose/Sod Cl (Potassium Chl 20 Meq In D5-1/2ns) 1,000 mls @ 80 mls/hr IV .[id number] [facility] [place] Stop: 05/18/17 12:23 Last Admin: 05/17/17 15:56 Dose: 80 mls/hr Lorazepam (Ativan) 1 mg IVP Q6 PRN PRN Reason: Agitation Last Admin: 05/17/17 21:56 Dose: 1 mg Morphine Sulfate (Morphine) 2 mg IVP Q6 PRN PRN Reason: Agitation Last Admin: 05/18/17 00:06 Dose: 2 mg Multivitamins/Vitamin C (Multi-Delyn Liquid) 5 ml PO DAILY [facility] [place] Last Admin: 05/17/17 09:10 Dose: 5 ml Pantoprazole Sodium (Protonix Susp) 40 mg PO DAILY [facility] [place] Last Admin: 05/17/17 09:10 Dose: 40 mg Quetiapine Fumarate (Seroquel) 25 mg PO HS [facility] [place] Last Admin: 05/03/17 22:55 Dose: Not Given Thiamine HCl (Vitamin B1 Tab) 100 mg PO DAILY [facility] [place] Last Admin: 05/17/17 09:12 Dose: 100 mg - Labs Labs: 05/18/17 04:30 05/18/17 04:30 PT 13.8 Seconds (9.8-13.1) H 05/15/17 10:20 INR 1.3 (0.9-1.2) H 05/15/17 10:20 APTT 34.9 Seconds (25.6-37.1) 05/15/17 10:20 - Constitutional Appears: Non-toxic, No Acute Distress - Head Exam Head Exam: ATRAUMATIC, NORMOCEPHALIC - ENT Exam Additional comments: ETT in place - Neck Exam Neck Exam: Normal Inspection Additional comments: trachea midline - Respiratory Exam Additional comments: mechanically ventilated - Cardiovascular Exam Cardiovascular Exam: RRR - Skin Skin Exam: Dry, Normal Color. absent: Cyanosis, Pallor Assessment and Plan - Assessment and Plan (Free Text) Assessment: 56 M with CVA and acute respiratory failure with pneumonia and left pneumothorax , intubated on 05/09 and re-intubated last night d/t mucous plug causing desaturation. Plavix held yesterday Plan: -Tracheostomy possibly early next week -Hold plavix -Supplement potassium -cont ICU management -further recs per attending Seen and discussed with Dr. India Graham, PGY2 <Jeremy Osborne - Last Filed: 05/18/17 10:43> Subjective - Date & Time of Evaluation Time of Evaluation: 10:10 - Subjective Subjective: Patient was seen and examined at the bedside. Agree with resident's note above. Objective - Vital Signs/Intake and Output Vital Signs (last 24 hours): Temp Pulse Resp BP Pulse Ox 98.8 F 78 16 138/91 H 100 05/18/17 08:00 05/18/17 08:00 05/18/17 08:00 05/18/17 08:00 05/18/17 08:00 Intake and Output: 05/18/17 05/18/17 06:59 18:59 Intake Total 1685 Balance 1685 - Medications Medications: Current Medications Acetaminophen (Tylenol 325mg Tab) 650 mg PO Q6 PRN PRN Reason: Pain, Mild (1-3) Last Admin: 05/15/17 13:46 Dose: 650 mg Acetaminophen (Tylenol 650 Mg Supp) 650 mg UT Q6 PRN PRN Reason: Fever >100.4 F Last Admin: 05/11/17 04:50 Dose: 650 mg Albuterol/Ipratropium (Duoneb 3 Mg/0.5 Mg (3 Ml) Ud) 3 ml INH RQID [facility] [place] Last Admin: 05/18/17 08:01 Dose: 3 ml Aspirin (Aspirin Chewable) 81 mg PO DAILY [facility] [place] Last Admin: 05/17/17 09:05 Dose: Not Given Atorvastatin Calcium (Lipitor) 40 mg PO DAILY [facility] [place] Last Admin: 05/18/17 08:59 Dose: 40 mg Clonidine HCl (Catapres) 0.1 mg PO BID [facility] [place] Last Admin: 05/18/17 08:59 Dose: 0.1 mg Clopidogrel Bisulfate (Plavix) 75 mg PO DAILY [facility] [place] Last Admin: 05/17/17 09:10 Dose: Not Given Enalapril Maleate (Vasotec) 10 mg PO BID [facility] [place] Last Admin: 05/18/17 09:00 Dose: 10 mg Enoxaparin Sodium (Lovenox) 40 mg SC DAILY [facility] [place] PRN Reason: Protocol Last Admin: 05/18/17 08:59 Dose: 40 mg Folic Acid (Folic Acid) 1 mg PO DAILY [facility] [place] Last Admin: 05/18/17 08:59 Dose: 1 mg Guaifenesin (Robitussin) 100 mg PO Q6 PRN PRN Reason: Cough Vancomycin HCl 1 gm/ Sodium (Chloride) 250 mls @ 166.667 mls/hr IVPB Q12 [facility] [place] Last Admin: 05/18/17 08:58 Dose: 166.667 mls/hr Meropenem 1 gm/ Sodium (Chloride) 100 mls @ 100 mls/hr IVPB Q8 [facility] [place] Last Admin: 05/18/17 08:59 Dose: 100 mls/hr Potassium Chloride/Dextrose/Sod Cl (Potassium Chl 20 Meq In D5-1/2ns) 1,000 mls @ 80 mls/hr IV .[id number] [facility] [place] Stop: 05/18/17 12:23 Last Admin: 05/18/17 08:58 Dose: 80 mls/hr Lorazepam (Ativan) 1 mg IVP Q6 PRN PRN Reason: Agitation Last Admin: 05/17/17 21:56 Dose: 1 mg Morphine Sulfate (Morphine) 2 mg IVP Q6 PRN PRN Reason: Agitation Last Admin: 05/18/17 00:06 Dose: 2 mg Multivitamins/Vitamin C (Multi-Delyn Liquid) 5 ml PO DAILY [facility] [place] Last Admin: 05/18/17 09:00 Dose: 5 ml Pantoprazole Sodium (Protonix Susp) 40 mg PO DAILY [facility] [place] Last Admin: 05/18/17 09:00 Dose: 40 mg Quetiapine Fumarate (Seroquel) 25 mg PO HS [facility] [place] Last Admin: 05/03/17 22:55 Dose: Not Given Thiamine HCl (Vitamin B1 Tab) 100 mg PO DAILY [facility] Last Admin: 05/18/17 09:00 Dose: 100 mg - Labs Labs: 05/18/17 04:30 05/18/17 04:30 PT 13.8 Seconds (9.8-13.1) H 05/15/17 10:20 INR 1.3 (0.9-1.2) H 05/15/17 10:20 APTT 34.9 Seconds (25.6-37.1) 05/15/17 10:20
--- NOTE | 2017-05-18 07:50 | CP.CCUPN ---
CCU Subjective - Physician Review Events Since Last Encounter (Free Text): 05/18/17 14:42 The patient was Seen/interviewed and examined by me at the bedside during ICU round, Medical records reviewed and Management issues were discussed and formulated with the house staff. Awake orally intubated and mechanically ventilated. Afebrile, Sinus rhythm @ 80 L side weakness noted, Bilateral dependent +2 edema. PRVC AC16 TV450 FiO2 50% PEEP5. Tolerating OGT feeding with Jevity @50cc/hr. Thick yellow Resp. secretions removed. IV infusing D51/2NS w/ 20meq KCL@80cc/hr Last 24H I&O 3530/1300 This mornig labs with H/H drop with no signs of bleeding, hypokalemia of 3.3, supplemented Sputum cultures growing MRSA and Serratia Marcescen On contact and airborne isolation ASA on hold for Planned for tracheostomy on Tuesday CCU Objective - Vital Signs / Intake & Output Vital Signs (Last 4 hours): Vital Signs Temp Pulse Resp BP Pulse Ox 05/18/17 06:00 63 16 132/75 100 05/18/17 04:00 98.5 F 59 L 16 119/67 100 Intake and Output (Last 8hrs): Intake & Output 05/17/17 05/18/17 05/18/17 22:59 06:59 14:59 Intake Total 2150 930 Output Total 1300 Balance 850 930 Intake: IV 1160 640 Intake, Piggyback 350 Tube Feeding 350 Free Water Flush 290 290 Output: Urine 1300 Urethral (Adame) 1300 Other: # Voids Urine, Voided 900 - Physical Exam Physical Exam Limitations: Positive for: Clinical Condition Head: Positive for: Atraumatic, Normocephalic Pupils: Positive for: PERRL Extroacular Muscles: Positive for: EOMI Conjunctiva: Positive for: Normal Mouth: Positive for: Moist Mucous Membranes Neck: Negative for: JVD, Bruit Respiratory/Chest: Positive for: Decreased Breath Sounds (left), Rhonchi ( diffuse) Cardiovascular: Positive for: Regular Rate and Rhythm Abdomen: Positive for: Normal Bowel Sounds. Negative for: Tenderness, Distention Upper Extremity: Positive for: Edema, Capillary Refill < 2s, Other (spontaneous movement of right arm). Negative for: Cyanosis Lower Extremity: Positive for: Edema (Bilateral dependent +2 edema), NORMAL PULSES, Other (L side weakness noted, spontaneous movement of right leg). Negative for: CALF TENDERNESS, Cyanosis Neurological: Positive for: Other ((Left hemiplegia)) Skin: Positive for: Warm. Negative for: Rashes, Diaphoretic Psychiatric: Positive for: Alert - Medications Active Medications: Active Medications Generic Name Dose Route Start Last Admin Trade Name Freq PRN Reason Stop Dose Admin Acetaminophen 650 mg 04/27/17 03:51 05/15/17 13:46 Tylenol 325mg Tab PO 650 mg Q6 PRN Administration Pain, Mild (1-3) Acetaminophen 650 mg 05/09/17 12:30 05/11/17 04:50 Tylenol 650 Mg Supp NC 650 mg Q6 PRN Administration Fever >100.4 F Albuterol/Ipratropium 3 ml 05/04/17 20:00 05/17/17 19:38 Duoneb 3 Mg/0.5 Mg (3 Ml) Ud INH 3 ml RQID [facility] Administration Aspirin 81 mg 04/27/17 09:00 05/17/17 09:05 Aspirin Chewable PO Not Given DAILY [facility] Atorvastatin Calcium 40 mg 04/27/17 09:00 05/17/17 09:08 Lipitor PO 40 mg DAILY [facility] Administration Clonidine HCl 0.1 mg 05/15/17 17:00 05/17/17 16:17 Catapres PO 0.1 mg BID [facility] Administration Clopidogrel Bisulfate 75 mg 05/11/17 17:18 05/17/17 09:10 Plavix PO Not Given DAILY [facility] Enalapril Maleate 10 mg 05/17/17 17:00 05/17/17 16:19 Vasotec PO 10 mg BID [facility] Administration Enoxaparin Sodium 40 mg 04/27/17 09:00 05/17/17 12:10 Lovenox SC 40 mg DAILY [facility] Administration Protocol Folic Acid 1 mg 04/27/17 15:15 05/17/17 09:06 Folic Acid PO 1 mg DAILY [facility] Administration Guaifenesin 100 mg 05/09/17 15:26 Robitussin PO Q6 PRN Cough Vancomycin HCl 1 gm/ Sodium 250 mls @ 166.667 mls/hr 05/04/17 21:00 05/17/17 20:11 Chloride IVPB 166.667 mls/hr Q12 [facility] Administration Meropenem 1 gm/ Sodium 100 mls @ 100 mls/hr 05/10/17 17:00 05/18/17 00:00 Chloride IVPB 100 mls/hr Q8 [facility] Administration Potassium Chloride/Dextrose/Sod Cl 1,000 mls @ 80 mls/hr 05/17/17 12:30 05/17 15:56 Potassium Chl 20 Meq In D5-1/2ns IV 05/18/17 12:23 80 mls/hr .[id number] [facility] Administration Lorazepam 1 mg 05/10/17 21:57 05/17/17 21:56 Ativan IVP 1 mg Q6 PRN Administration Agitation Morphine Sulfate 2 mg 05/17/17 23:36 05/18/17 00:06 Morphine IVP 2 mg Q6 PRN Administration Agitation Multivitamins/Vitamin C 5 ml 04/27/17 15:15 05/17/17 09:10 Multi-Delyn Liquid PO 5 ml DAILY [facility] Administration Pantoprazole Sodium 40 mg 05/10/17 09:00 05/17/17 09:10 Protonix Susp PO 40 mg DAILY [facility] Administration Quetiapine Fumarate 25 mg 04/28/17 22:00 05/03/17 22:55 Seroquel PO Not Given HS [facility] Thiamine HCl 100 mg 04/27/17 15:15 05/17/17 09:12 Vitamin B1 Tab PO 100 mg DAILY [facility] Administration - Patient Studies Lab Studies: Lab Studies 05/18/17 05/18/17 05/18/17 Range/Units 05:11 04:30 04:30 WBC 11.7 H (4.8-10.8) K/uL RBC 2.90 L (4.40-5.90) Mil/uL Hgb 9.7 L (12.0-18.0) g/dL Hct 29.2 L (35.0-51.0) % MCV 100.7 H (80.0-94.0) fl MCH 33.4 H (27.0-31.0) pg MCHC 33.2 (33.0-37.0) g/dL RDW 13.9 (11.5-14.5) % Plt Count 140 (130-400) K/uL pCO2 41 (35-45) mm/Hg pO2 149 H (80-100) mm/Hg HCO3 31.9 H (21-28) mmol/L ABG pH 7.51 H (7.35-7.45) ABG Total CO2 34.0 H (22-28) mmol/L ABG O2 Saturation 99.1 H (95-98) % ABG O2 Content 14.2 L (15-23) ML/dL ABG Base Excess 8.9 H (-2.0-3.0) mmol/L ABG Hemoglobin 10.2 L (11.7-17.4) g/dL ABG Carboxyhemoglobin 0.8 (0.5-1.5) % POC ABG HHb (Measured) 0.9 (0.0-5.0) % ABG Methemoglobin 1.7 (0.0-3.0) % ABG O2 Capacity 14.3 L (16-24) mL/dL Carson Test Yes A-a O2 Difference 156.0 mm/Hg Hgb O2 Saturation 96.6 (95.0-98.0) % Vent Mode A/c Mechanical Rate 16 FiO2 50.0 % Tidal Volume 450 PEEP 5 Sodium 134 (132-148) mmol/l Potassium 3.3 L (3.6-5.0) MMOL/L Chloride 98 (98-107) mmol/L Carbon Dioxide 29 (22-30) mmol/L Anion Gap 10 (10-20) BUN 8 L (9-20) mg/dl Creatinine 0.4 L (0.8-1.5) mg/dL Est GFR ( Amer) > 60 Est GFR (Non-Af Amer) > 60 Random Glucose 108 (75-110) mg/dL Calcium 8.2 L (8.4-10.2) mg/dL Laboratory Results - last 24 hr 05/18/17 05/18/17 05/18/17 04:30 04:30 05:11 WBC 11.7 H RBC 2.90 L Hgb 9.7 L Hct 29.2 L MCV 100.7 H MCH 33.4 H MCHC 33.2 RDW 13.9 Plt Count 140 pCO2 41 pO2 149 H HCO3 31.9 H ABG pH 7.51 H ABG Total CO2 34.0 H ABG O2 Saturation 99.1 H ABG O2 Content 14.2 L ABG Base Excess 8.9 H ABG Hemoglobin 10.2 L ABG Carboxyhemoglobin 0.8 POC ABG HHb (Measured) 0.9 ABG Methemoglobin 1.7 ABG O2 Capacity 14.3 L Carson Test Yes A-a O2 Difference 156.0 Hgb O2 Saturation 96.6 Vent Mode A/c Mechanical Rate 16 FiO2 50.0 Tidal Volume 450 PEEP 5 Sodium 134 Potassium 3.3 L Chloride 98 Carbon Dioxide 29 Anion Gap 10 BUN 8 L Creatinine 0.4 L Est GFR ( Amer) > 60 Est GFR (Non-Af Amer) > 60 Random Glucose 108 Calcium 8.2 L Review of Systems - Review of Systems Systems not reviewed;Unavailable: Intubated Critical Care Progress Note - Ventilator Checklist Head of Bed 30 Degrees: Yes Daily Sedation Vacation: Yes Daily Assessment of Readiness to Wean: Yes Daily Spontaneous Breathing Trial: Yes PUD Prophalyxis: Yes DVT Prophylaxis: Yes Oral Care with Chlorhexidine Gluconate {CHG}: Yes - Prophylaxis GI Prophylaxis GI: PPI - Prophylaxis DVT Prophylaxis DVT: Lovenox - Nutrition Nutrition: Nutrition Category Date Time Status NPO Diet [DIET] Diets 05/16/17 Breakfast Active Assessment/Plan (1) Acute ischemic stroke Current Visit: Yes Status: Acute Priority: High Comment: ASA/Plavix Maintian aspiration and seizure precaution head of the bed elevation Neurology Recs appreciated (2) Acute respiratory failure Current Visit: Yes Status: Acute Priority: High Comment: ASA on hold for Planned for tracheostomy on Tuesday Aggressive pulmonary toilet, chest PT, suctioning Strict I/O's Poosible need for Bronch (3) Acute right MCA stroke Current Visit: Yes Status: Acute Priority: High (4) MRSA pneumonia Current Visit: Yes Status: Acute Priority: High Comment: Aspiration pneumonia Continue Vancomycin IVPB Q12 Meropenem 1 gm IVPB Q8 (5) Alcohol abuse Current Visit: Yes Status: Acute Comment: Vitamin B1 100 mg PO DAILY (6) Prophylactic measure Current Visit: Yes Status: Acute Comment: Lovenox 40 mg SC DAILY Protonix 40 mg PO DAILY - Assessment and Plan (Free Text) Assessment: I have reviewed all the relevant clinical, laboratory, hemodynamic, radiographic data and medications Pain issues, skin care, head of the bed elevation, glycemic control were addressed. Full code Total critical care time 48 minutes
[2017-05-18] MEDS ORDERED: Potassium Chloride 20 mEq/15 ml LIQ UD PO ONE (07:54)
[2017-05-18] MEDS: Albuterol-Ipratrop 3 mg / 0.5 (3 ml) UD INH SCH ×4 (08:01→19:48)
[2017-05-18] MEDS: Potassium Ch 20mEq in D5-1/2NS 1,000 ML IV SCH (08:58)
[2017-05-18] MEDS: Meropenem 1 GM in Sodium Chloride 0.9% 100 ML IVPB SCH ×3 (08:59→16:57)
[2017-05-18] MEDS: Enoxaparin 40 mg Syringe SC SCH (08:59)
[2017-05-18] MEDS: Pantoprazole 40 mg Susp UD PO SCH (09:00)
[2017-05-18] MEDS: Multiple Vitamins Oral Solution PO SCH (09:00)
--- NOTE | 2017-05-18 09:29 | CP.PCM.PN ---
Subjective - Date & Time of Evaluation Date of Evaluation: 05/18/17 Time of Evaluation: 09:00 - Subjective Subjective: Patient seen and examined bedside. Intubated on MV PRVC AC mode 16/450/5/50 % with ABG 41/149/31/7.5 this AM With respiratory distress overnight due to mucus plug requiring re intubation CXR this AM showed left side infiltrates . Still with with thick mucoid secretions being suctioned from ET tube Awake and alert , follows simple commands, moves right upper and lower extremity , moving his left upper extremity more today , lifting again gravity , unable to move LLE BP 132/75 HR 63 afebrile WBC 11 K Hgb 11 Plt 40 K 3.3 I/O 3530/[address] OGT in place with Jevity @ 50 ml/hr Objective - Vital Signs/Intake and Output Vital Signs (last 24 hours): Temp Pulse Resp BP Pulse Ox 98.8 F 78 16 138/91 H 100 05/18/17 08:00 05/18/17 08:00 05/18/17 08:00 05/18/17 08:00 05/18/17 08:00 Intake and Output: 05/18/17 05/18/17 06:59 18:59 Intake Total 1685 Balance 1685 - Medications Medications: Current Medications Acetaminophen (Tylenol 325mg Tab) 650 mg PO Q6 PRN PRN Reason: Pain, Mild (1-3) Last Admin: 05/15/17 13:46 Dose: 650 mg Acetaminophen (Tylenol 650 Mg Supp) 650 mg PA Q6 PRN PRN Reason: Fever >100.4 F Last Admin: 05/11/17 04:50 Dose: 650 mg Albuterol/Ipratropium (Duoneb 3 Mg/0.5 Mg (3 Ml) Ud) 3 ml INH RQID [facility] Last Admin: 05/18/17 08:01 Dose: 3 ml Aspirin (Aspirin Chewable) 81 mg PO DAILY [facility] Last Admin: 05/17/17 09:05 Dose: Not Given Atorvastatin Calcium (Lipitor) 40 mg PO DAILY [facility] Last Admin: 05/18/17 08:59 Dose: 40 mg Clonidine HCl (Catapres) 0.1 mg PO BID [facility] Last Admin: 05/18/17 08:59 Dose: 0.1 mg Clopidogrel Bisulfate (Plavix) 75 mg PO DAILY [facility] Last Admin: 05/17/17 09:10 Dose: Not Given Enalapril Maleate (Vasotec) 10 mg PO BID [facility] Last Admin: 05/18/17 09:00 Dose: 10 mg Enoxaparin Sodium (Lovenox) 40 mg SC DAILY [facility] PRN Reason: Protocol Last Admin: 05/18/17 08:59 Dose: 40 mg Folic Acid (Folic Acid) 1 mg PO DAILY [facility] Last Admin: 05/18/17 08:59 Dose: 1 mg Guaifenesin (Robitussin) 100 mg PO Q6 PRN PRN Reason: Cough Vancomycin HCl 1 gm/ Sodium (Chloride) 250 mls @ 166.667 mls/hr IVPB Q12 [facility] Last Admin: 05/18/17 08:58 Dose: 166.667 mls/hr Meropenem 1 gm/ Sodium (Chloride) 100 mls @ 100 mls/hr IVPB Q8 [facility] Last Admin: 05/18/17 08:59 Dose: 100 mls/hr Potassium Chloride/Dextrose/Sod Cl (Potassium Chl 20 Meq In D5-1/2ns) 1,000 mls @ 80 mls/hr IV .[id number] [facility] Stop: 05/18/17 12:23 Last Admin: 05/18/17 08:58 Dose: 80 mls/hr Lorazepam (Ativan) 1 mg IVP Q6 PRN PRN Reason: Agitation Last Admin: 05/17/17 21:56 Dose: 1 mg Morphine Sulfate (Morphine) 2 mg IVP Q6 PRN PRN Reason: Agitation Last Admin: 05/18/17 00:06 Dose: 2 mg Multivitamins/Vitamin C (Multi-Delyn Liquid) 5 ml PO DAILY [facility] Last Admin: 05/18/17 09:00 Dose: 5 ml Pantoprazole Sodium (Protonix Susp) 40 mg PO DAILY [facility] Last Admin: 05/18/17 09:00 Dose: 40 mg Quetiapine Fumarate (Seroquel) 25 mg PO HS [facility] Last Admin: 05/03/17 22:55 Dose: Not Given Thiamine HCl (Vitamin B1 Tab) 100 mg PO DAILY [facility] Last Admin: 05/18/17 09:00 Dose: 100 mg - Labs Labs: 05/18/17 04:30 05/18/17 04:30 PT 13.8 Seconds (9.8-13.1) H 09/03/17 10:20 INR 1.3 (0.9-1.2) H 05/15/17 10:20 APTT 34.9 Seconds (25.6-37.1) 05/15/17 10:20 - Constitutional Appears: Other (intubated on MV , awake , alert , follows commands) - Head Exam Head Exam: ATRAUMATIC, NORMOCEPHALIC - Eye Exam Eye Exam: EOMI, PERRL Additional comments: keeps his left eye closed - ENT Exam ENT Exam: Mucous Membranes Dry, Normal Exam - Neck Exam Neck Exam: Full ROM, Normal Inspection - Respiratory Exam Respiratory Exam: Clear to Ausculation Bilateral. absent: Wheezes Additional comments: coarse breath sounds bilaterally - Cardiovascular Exam Cardiovascular Exam: REGULAR RHYTHM, RRR, +S1, +S2. absent: JVD - GI/Abdominal Exam GI & Abdominal Exam: Soft, Normal Bowel Sounds. absent: Distended, Guarding, Tenderness, Rebound - Rectal Exam Rectal Exam: Deferred - Extremities Exam Extremities Exam: absent: Pedal Edema - Neurological Exam Neurological Exam: Alert, Awake Additional comments: intubated with left side weakness but able to move his LUE again gravity today , unable to move LLE follows simple command - Psychiatric Exam Psychiatric exam: Agitated, Flat Affect - Skin Skin Exam: Dry, Intact, Normal Color, Warm Assessment and Plan - Assessment and Plan (Free Text) Assessment: 56 y/o homeless male with PMHx significant for HTN, anemia, and EtOH abuse presented to ER with multiple falls and minor head trauma. He stated that he had been feeling 'off balance' and falling more over the past several days. Denied any focal weakness, but felt like both his feet were numb (this is ongoing, not new) and also c/o back pain (also chronic); he also felt off balance more lately as well. patient has history of chronic ETOH use . CT head in ER showed Multiple bilateral lacunar infarcts and severe cortical atrophy. Patient admitted in telemetry for close monitoring. MRI head showed acute right MCA stroke Patient started on ASa, lovenox and statin. Neurology and PT consulted He developed DT-s and was started on gabapentin 300 mg PO TID , Seroquel and Ativan PRN Patient became more lethargic with dyarthria, dysphagia, left facial droop and left side weakness. Repeat MRI of the head showed : Findings compatible with the known recent right basal ganglia infarct. No new areas of infarction seen. No MR evidence of associated hemorrhage. He developed acute hypoxemic respiratory failure on 05/09 likely due to Aspiration PNA, was intubated and transferred to ICU. At present still intubated on MV on FIO2 50 % . Required re intubation overnight due to mucus plug Neurologically he is awake, follows simple commands, gets agitated , moving right side of his body and today able to move LUE again gravity but no movement to LLE. Note : Patient's next of kin is his daughter Catia ) . She has been informed in details about patient's condition , findings, prognosis and plan of care. Patient has a large left sided stroke with significant neurodeficits ,left sided weakness, dysphagia , unable to protect his airway and his road to recovery is going to be very long and slow .Patient has been intubated for 10 days and is still on MV high FIO2 with large thick respiratory secretions , with no significant improvement neurologically ,unable to protect his airway and chances of being extubated in the near future are slim. He will require tracheostomy placement to be ventilated and peg placement for care home feeding . All explained to the daughter . She is willing and available to be called and provide necessary consents if needed for any procedures deemed necessary . She agrees with patient to have a bronchoscopy , tracheostomy and peg placement and would like to be called to provide the consents. She was informed that anticoagulations will be held for 72 hours for such procedures as discussed with neurology. 1. Acute Respiratory failure with Hypoxia sec to Aspiration Pneumonia Still intubated on MV PRVC/AC mode 16/450/5/50 % With episode of respiratory distress overnight due to mucus plug requiring re intubation still with thick yellowish respiratory secretions requiring frequent suctioning Sputum cultures positive for MRSA and Serratia Marcescen and patient is on meropenem and Vanco IV as per ID Initial CXR showed total opacification of left lung 05/09 ( #10 of intubation ) Repeat CXR today with improvement of left infiltrate WBC trended down 11 K, afebrile keep head of the bed elevated frequent suctioning and aspiration precautions Plan for bronchoscopy in Am by Dr. Garrison Will hold feeding after midnight. Daughter agrees to procedure Planned for tracheostomy placement on Tuesday by surgery. Discussed with Dr. Osborne.As per neurology, patient is high risk to be off anticoagulation He recommended to hold ASa and plavix only for 72 hours( last dose was 03/15) . Surgery informed and planned for tracheostomy on Tuesday. Daughter agrees with procedure. GI consulted for peg placement . Possible peg placement on Tuesday AM bedside. 2. Acute Ischemic stroke - Right MCA distribution patient became lethargic with dysarthria, dysphagia, left facial droop and left side hemiparesis with stroke progression and at present intubated on MV MRI of the head 04/28 : 1. Acute right MCA territory infarction involving the right narayanan radiata and basal ganglia. CTA neck showed no Blood clot , carotid doppler showed no stenosis Echo showed normal EF and wall motion Repeat CT head showed no hemorrhagic conversion EEG: No epileptiform activity Neuro on board following Patient has a large left sided stroke with significant neurodeficits ,left sided weakness, dysphagia , unable to protect his airway and his road to recovery is going to be very long and slow .Patient has been intubated for 10 days and is still on MV high FIO2 with large thick respiratory secretions , with no significant improvement neurologically ,unable to protect his airway and chances of being extubated in the near future are slim. He will require tracheostomy placement to be ventilated and peg placement for lobsterman feeding . All explained to the daughter . Has been on ASA, statin ,Plavix . Discussed with neurologuy Dr. Rubalcava . Will hold ASA and plavix for 72 hours for trache placement ( last dose 05/16) Peg placement on tuesday keep head of the bed elevated . He will need Vent unit placement once stable Pt on board 3.ETOH withdrawal/ Delirium tremens-- resolved but now lethargic due to CVA patient was tachycardic, tremulous, confused with visual hallucinations on admission was initially Started on librium tapering dose-- discontinued due to sedation discussed with neurology who recommended to start patient on gabapentin and Seroquel HS that were discontinued due to lethargy Continue thiamine, folic acid, MVI, Seizure precautions Ativan prn 4. HTN uncontrolled change Enalapril to 10 mg po BID continue Clonidine 5.Thrombocytopenia- improved most likely chronic secondary to ETOH abuse 6.Hypokalemia, replace with Kcl 7. Anemia of chronic disease hgb 9.7 monitor 8. DVT PPx Lovenox
--- NOTE | 2017-05-18 10:13 | CP.PCM.PN ---
<Nati Glover - Last Filed: 05/18/17 10:24> Subjective - Date & Time of Evaluation Date of Evaluation: 05/18/17 Time of Evaluation: 07:00 - Subjective Subjective: PGY4 GI Followup Pt seen and examined bedside opens eyes upon arousal does not follow commands overnight events noted, ET exchanged due to mucus plug ROS: could not obtain 2/2 mental status Objective - Vital Signs/Intake and Output Vital Signs (last 24 hours): Temp Pulse Resp BP Pulse Ox 98.8 F 78 16 138/91 H 100 05/18/17 08:00 05/18/17 08:00 05/18/17 08:00 05/18/17 08:00 05/18/17 08:00 Intake and Output: 05/18/17 05/18/17 06:59 18:59 Intake Total 1685 Balance 1685 - Medications Medications: Current Medications Acetaminophen (Tylenol 325mg Tab) 650 mg PO Q6 PRN PRN Reason: Pain, Mild (1-3) Last Admin: 05/15/17 13:46 Dose: 650 mg Acetaminophen (Tylenol 650 Mg Supp) 650 mg MO Q6 PRN PRN Reason: Fever >100.4 F Last Admin: 05/11/17 04:50 Dose: 650 mg Albuterol/Ipratropium (Duoneb 3 Mg/0.5 Mg (3 Ml) Ud) 3 ml INH RQID [facility] Last Admin: 05/18/17 08:01 Dose: 3 ml Aspirin (Aspirin Chewable) 81 mg PO DAILY [facility] Last Admin: 05/17/17 09:05 Dose: Not Given Atorvastatin Calcium (Lipitor) 40 mg PO DAILY [facility] Last Admin: 05/18/17 08:59 Dose: 40 mg Clonidine HCl (Catapres) 0.1 mg PO BID [facility] Last Admin: 05/18/17 08:59 Dose: 0.1 mg Clopidogrel Bisulfate (Plavix) 75 mg PO DAILY [facility] Last Admin: 05/17/17 09:10 Dose: Not Given Enalapril Maleate (Vasotec) 10 mg PO BID [facility] Last Admin: 05/18/17 09:00 Dose: 10 mg Enoxaparin Sodium (Lovenox) 40 mg SC DAILY [facility] PRN Reason: Protocol Last Admin: 05/18/17 08:59 Dose: 40 mg Folic Acid (Folic Acid) 1 mg PO DAILY [facility] Last Admin: 05/18/17 08:59 Dose: 1 mg Guaifenesin (Robitussin) 100 mg PO Q6 PRN PRN Reason: Cough Vancomycin HCl 1 gm/ Sodium (Chloride) 250 mls @ 166.667 mls/hr IVPB Q12 [facility] Last Admin: 05/18/17 08:58 Dose: 166.667 mls/hr Meropenem 1 gm/ Sodium (Chloride) 100 mls @ 100 mls/hr IVPB Q8 [facility] Last Admin: 05/18/17 08:59 Dose: 100 mls/hr Potassium Chloride/Dextrose/Sod Cl (Potassium Chl 20 Meq In D5-1/2ns) 1,000 mls @ 80 mls/hr IV .[id number] [facility] Stop: 05/18/17 12:23 Last Admin: 05/18/17 08:58 Dose: 80 mls/hr Lorazepam (Ativan) 1 mg IVP Q6 PRN PRN Reason: Agitation Last Admin: 05/17/17 21:56 Dose: 1 mg Morphine Sulfate (Morphine) 2 mg IVP Q6 PRN PRN Reason: Agitation Last Admin: 05/18/17 00:06 Dose: 2 mg Multivitamins/Vitamin C (Multi-Delyn Liquid) 5 ml PO DAILY [facility] Last Admin: 05/18/17 09:00 Dose: 5 ml Pantoprazole Sodium (Protonix Susp) 40 mg PO DAILY [facility] Last Admin: 05/18/17 09:00 Dose: 40 mg Quetiapine Fumarate (Seroquel) 25 mg PO HS [facility] Last Admin: 05/03/17 22:55 Dose: Not Given Thiamine HCl (Vitamin B1 Tab) 100 mg PO DAILY [facility] Last Admin: 05/18/17 09:00 Dose: 100 mg - Labs Labs: 05/18/17 04:30 05/18/17 04:30 PT 13.8 Seconds (9.8-13.1) H 05/15/17 10:20 INR 1.3 (0.9-1.2) H 05/15/17 10:20 APTT 34.9 Seconds (25.6-37.1) 05/15/17 10:20 - Constitutional Appears: No Acute Distress, Chronically Ill - Head Exam Head Exam: ATRAUMATIC, NORMOCEPHALIC - Eye Exam Eye Exam: Normal appearance - ENT Exam ENT Exam: Mucous Membranes Moist - Cardiovascular Exam Cardiovascular Exam: REGULAR RHYTHM, +S1, +S2 - GI/Abdominal Exam GI & Abdominal Exam: Soft, Tenderness, Normal Bowel Sounds. absent: Guarding, Rigid, Organomegaly - Extremities Exam Extremities Exam: Pedal Edema - Neurological Exam Neurological Exam: Altered, Awake - Psychiatric Exam Additional comments: cannot assess - Skin Skin Exam: Dry, Intact, Normal Color, Warm Assessment and Plan - Assessment and Plan (Free Text) Assessment: This is a 56yM with a hx of alcohol abuse, HTN, CBP s/p fall and found to have a Acute CVA with left sided weakness, dysarthria and dysphagia. Request for PEG tube placement. 1. Respiratory failure s/p intubation and MV 2. Aspiration PNA 3. Dyphagia with aspiration due to CVA 4. Acute CVA- Right Basal ganglia, narayanan radiata infarct 5. Macrocytic Anemia 6. ETOH abuse/dependence s/p DTs Plan: -Still no established clear Power of tax associate attorney or Health Proxy -Will need to be ethics on board and clearly document who we can obtain consent from -Continue treatment for aspiration PNA with sputum cx positive for MRSA, abx therapy per ID -Aspiration precautions, seizure precautions -Can continue TF through OG tube -ASA and plavix as per primary team and neurology -Plavix was stopped by primary team -Will proceed with PEG once consent is obtained -Do not need to keep pt off of plavix from GI standpoint, though it is preferred for the procedure. If consent is delayed and there is no clear time frame for the PEG, primary team can restart plavix from GI standpoint due to continue CVA risk. Will D/W Dr. Tolbert <Didi CRAWF[facility] - Last Filed: 05/18/17 13:32> Objective - Vital Signs/Intake and Output Vital Signs (last 24 hours): Temp Pulse Resp BP Pulse Ox 98.7 F 76 15 127/71 100 05/18/17 12:00 05/18/17 12:00 05/18/17 12:00 05/18/17 12:00 05/18/17 12:00 Intake and Output: 05/18/17 05/18/17 06:59 18:59 Intake Total 1685 1000 Balance 1685 1000 - Medications Medications: Current Medications Acetaminophen (Tylenol 325mg Tab) 650 mg PO Q6 PRN PRN Reason: Pain, Mild (1-3) Last Admin: 05/15/17 13:46 Dose: 650 mg Acetaminophen (Tylenol 650 Mg Supp) 650 mg MO Q6 PRN PRN Reason: Fever >100.4 F Last Admin: 05/11/17 04:50 Dose: 650 mg Albuterol/Ipratropium (Duoneb 3 Mg/0.5 Mg (3 Ml) Ud) 3 ml INH RQID [facility] Last Admin: 05/18/17 11:23 Dose: 3 ml Aspirin (Aspirin Chewable) 81 mg PO DAILY [facility] Last Admin: 05/17/17 09:05 Dose: Not Given Atorvastatin Calcium (Lipitor) 40 mg PO DAILY [facility] Last Admin: 05/18/17 08:59 Dose: 40 mg Clonidine HCl (Catapres) 0.1 mg PO BID [facility] Last Admin: 05/18/17 08:59 Dose: 0.1 mg Clopidogrel Bisulfate (Plavix) 75 mg PO DAILY [facility] Last Admin: 05/17/17 09:10 Dose: Not Given Enalapril Maleate (Vasotec) 10 mg PO BID [facility] Last Admin: 05/18/17 09:00 Dose: 10 mg Enoxaparin Sodium (Lovenox) 40 mg SC DAILY [facility] PRN Reason: Protocol Last Admin: 05/18/17 08:59 Dose: 40 mg Folic Acid (Folic Acid) 1 mg PO DAILY [facility] Last Admin: 05/18/17 08:59 Dose: 1 mg Guaifenesin (Robitussin) 100 mg PO Q6 PRN PRN Reason: Cough Vancomycin HCl 1 gm/ Sodium (Chloride) 250 mls @ 166.667 mls/hr IVPB Q12 [facility] Last Admin: 05/18/17 08:58 Dose: 166.667 mls/hr Meropenem 1 gm/ Sodium (Chloride) 100 mls @ 100 mls/hr IVPB Q8 [facility] Last Admin: 05/18/17 08:59 Dose: 100 mls/hr Lorazepam (Ativan) 1 mg IVP Q6 PRN PRN Reason: Agitation Last Admin: 05/17/17 21:56 Dose: 1 mg Morphine Sulfate (Morphine) 2 mg IVP Q6 PRN PRN Reason: Agitation Last Admin: 05/18/17 00:06 Dose: 2 mg Multivitamins/Vitamin C (Multi-Delyn Liquid) 5 ml PO DAILY [facility] Last Admin: 05/18/17 09:00 Dose: 5 ml Pantoprazole Sodium (Protonix Susp) 40 mg PO DAILY [facility] Last Admin: 05/18/17 09:00 Dose: 40 mg Quetiapine Fumarate (Seroquel) 25 mg PO HS [facility] Last Admin: 05/03/17 22:55 Dose: Not Given Thiamine HCl (Vitamin B1 Tab) 100 mg PO DAILY [facility] Last Admin: 05/18/17 09:00 Dose: 100 mg - Labs Labs: 05/18/17 04:30 05/18/17 04:30 PT 13.8 Seconds (9.8-13.1) H 05/15/17 10:20 INR 1.3 (0.9-1.2) H 05/15/17 10:20 APTT 34.9 Seconds (25.6-37.1) 05/15/17 10:20 Attending/Attestation - Attestation I have personally seen and examined this patient.: Yes I have fully participated in the care of the patient.: Yes I have reviewed all pertinent clinical information, including history, physical exam and plan: Yes Notes (Text): 05/18/17 13:30 56 yr old M with a hx of alcohol abuse, HTN, CBP s/p fall and found to have a Acute CVA with left sided weakness, dysarthria and dysphagia. Request for PEG tube placement. Unable to establish clear power of attroney for peg placement consent FROM nok. Spoke to nephew Pastor who does not have POA and patient has a legal daughter. Discussed with [facility]U to get ethics involved for elective gastrostomy tube placement which is a high risk procedure. Plan: -could not establish a clear Power of tax associate attorney or Health Proxy -Spoke with Pastor, Pt's nephew, he does not have legal precedence as of today, he is in the process of obtaining -Will need to be ethics on board and clearly document who we can obtain consent from -Continue treatment for aspiration PNA with sputum cx positive for MRSA, abx therapy per ID -Aspiration precautions, seizure precautions -Can continue TF through OG tube -Prefer to hold plavix for 5 days prior to PEG tube placement however, as per conversation when neurologist previously, there concern about continued embolic events and recommendation to continue plavix and ASA -If we cannot stop plavix, we can still proceed with the procedure as high risk for bleeding, but need to get clear consent by the appropriate POA -PEG tube will be placed once the above is accomplish - Please reconsult prn once above documented
--- NOTE | 2017-05-18 11:48 | RAD ---
PROCEDURE: CHEST RADIOGRAPH, 1 VIEW HISTORY: intubated COMPARISON: Comparison is made to previous same-day exam FINDINGS: LUNGS: Interval mild improvement in the previously seen reticular opacities at the left lung since the previous study. The ET tube is seen at appropriate position. The left lung is again smaller than the right. PLEURA: No evidence of significant pleural effusion. CARDIOVASCULAR: Normal. OSSEOUS STRUCTURES: No significant abnormalities. VISUALIZED UPPER ABDOMEN: The NG tube seen extending to the stomach. OTHER FINDINGS: None. IMPRESSION: Interval mild improvement in the previously seen reticular opacities/ infiltrates at the left lung since the previous exam. Appropriate position of the support devices.
--- NOTE | 2017-05-18 12:12 | RAD ---
HISTORY: f/u s/p reintubation COMPARISON: May 18, 2017. 23:31. FINDINGS: LUNGS: Stable left upper lobe infiltrate PLEURA: No significant pleural effusion identified, no pneumothorax apparent. CARDIOVASCULAR: No radiographic findings to suggest acute or significant cardiovascular disease. OSSEOUS STRUCTURES: No significant abnormalities. VISUALIZED UPPER ABDOMEN: Normal. OTHER FINDINGS: Satisfactory position of support apparatus including endotracheal tube and nasogastric tube. IMPRESSION: No significant interval change compared to the prior examination(s).
--- NOTE | 2017-05-18 13:56 | CP.PCM.PN ---
Subjective - Date & Time of Evaluation Date of Evaluation: 05/18/17 Time of Evaluation: 14:10 - Subjective Subjective: F/U Respiratory failure. Open eyes to verbal stimuli , follows simple commands Objective - Vital Signs/Intake and Output Vital Signs (last 24 hours): Temp Pulse Resp BP Pulse Ox 98.7 F 76 15 127/71 100 05/18/17 12:00 05/18/17 12:00 05/18/17 12:00 05/18/17 12:00 05/18/17 12:00 Intake and Output: 05/18/17 05/18/17 06:59 18:59 Intake Total 1685 1000 Balance 1685 1000 - Medications Medications: Current Medications Acetaminophen (Tylenol 325mg Tab) 650 mg PO Q6 PRN PRN Reason: Pain, Mild (1-3) Last Admin: 05/15/17 13:46 Dose: 650 mg Acetaminophen (Tylenol 650 Mg Supp) 650 mg [place] Q6 PRN PRN Reason: Fever >100.4 F Last Admin: 05/11/17 04:50 Dose: 650 mg Albuterol/Ipratropium (Duoneb 3 Mg/0.5 Mg (3 Ml) Ud) 3 ml INH RQID [facility] Last Admin: 05/18/17 11:23 Dose: 3 ml Aspirin (Aspirin Chewable) 81 mg PO DAILY [facility] Last Admin: 05/17/17 09:05 Dose: Not Given Atorvastatin Calcium (Lipitor) 40 mg PO DAILY [facility] Last Admin: 05/18/17 08:59 Dose: 40 mg Clonidine HCl (Catapres) 0.1 mg PO BID [facility] Last Admin: 05/18/17 08:59 Dose: 0.1 mg Clopidogrel Bisulfate (Plavix) 75 mg PO DAILY [facility] Last Admin: 05/17/17 09:10 Dose: Not Given Enalapril Maleate (Vasotec) 10 mg PO BID [facility] Last Admin: 05/18/17 09:00 Dose: 10 mg Enoxaparin Sodium (Lovenox) 40 mg SC DAILY [facility] PRN Reason: Protocol Last Admin: 05/18/17 08:59 Dose: 40 mg Folic Acid (Folic Acid) 1 mg PO DAILY [facility] Last Admin: 05/18/17 08:59 Dose: 1 mg Guaifenesin (Robitussin) 100 mg PO Q6 PRN PRN Reason: Cough Vancomycin HCl 1 gm/ Sodium (Chloride) 250 mls @ 166.667 mls/hr IVPB Q12 [facility] Last Admin: 05/18/17 08:58 Dose: 166.667 mls/hr Meropenem 1 gm/ Sodium (Chloride) 100 mls @ 100 mls/hr IVPB Q8 [facility] Last Admin: 05/18/17 08:59 Dose: 100 mls/hr Lorazepam (Ativan) 1 mg IVP Q6 PRN PRN Reason: Agitation Last Admin: 05/17/17 21:56 Dose: 1 mg Morphine Sulfate (Morphine) 2 mg IVP Q6 PRN PRN Reason: Agitation Last Admin: 05/18/17 13:48 Dose: 2 mg Multivitamins/Vitamin C (Multi-Delyn Liquid) 5 ml PO DAILY [facility] Last Admin: 05/18/17 09:00 Dose: 5 ml Pantoprazole Sodium (Protonix Susp) 40 mg PO DAILY [facility] Last Admin: 05/18/17 09:00 Dose: 40 mg Quetiapine Fumarate (Seroquel) 25 mg PO [facility] Last Admin: 05/03/17 22:55 Dose: Not Given Thiamine HCl (Vitamin B1 Tab) 100 mg PO DAILY [facility] Last Admin: 05/18/17 09:00 Dose: 100 mg - Labs Labs: 05/18/17 04:30 05/18/17 04:30 PT 13.8 Seconds (9.8-13.1) H 05/15/17 10:20 INR 1.3 (0.9-1.2) H 05/15/17 10:20 APTT 34.9 Seconds (25.6-37.1) 05/15/17 10:20 - Constitutional Appears: Chronically Ill - Head Exam Head Exam: NORMAL INSPECTION - Eye Exam Eye Exam: PERRL - ENT Exam Additional comments: Intubated - Neck Exam Neck Exam: Normal Inspection - Respiratory Exam Respiratory Exam: Decreased Breath Sounds, Rhonchi (few at bases) - Cardiovascular Exam Cardiovascular Exam: REGULAR RHYTHM - GI/Abdominal Exam GI & Abdominal Exam: Soft, Normal Bowel Sounds - Extremities Exam Extremities Exam: absent: Pedal Edema - Back Exam Back Exam: NORMAL INSPECTION - Neurological Exam Additional comments: Response to tactile stimuli, response to verbal stimuli, follows simple commands spontaneous movements upper extremities, L side weakness - Skin Skin Exam: Warm Assessment and Plan (1) Acute respiratory failure Status: Acute (2) MRSA pneumonia Status: Acute (3) Acute right MCA stroke Status: Acute - Assessment and Plan (Free Text) Plan: Patient to have Bronchoscopy tomorrow , if unable to wean for Tracheostomy next week, continue DuoNeb , Merren , Vanco and rest of treatment. ICU Time: 40 min.
--- NOTE | 2017-05-18 16:37 | CON ---
NEUROLOGY CONSULT DATE: 05/18/2017 She has been at followup for Korya's. CHIEF COMPLAINT: Left side weakness. SUBJECTIVE: The patient was seen and examined at bedside. The patient has history of hypertension, anemia, and history of ETOH abuse. He came to the ER for multiple falls and minor head trauma. He stated that he fell off balance and was falling moreover. He was on in the hospital to have acute right MCA infarct, which is pre-reduced in size and had left side flaccid weakness. Currently, he was having also delirium tremens, which he was on multivitamins and doing precautions as well as he was on aspirin and Plavix for stroke prevention. Currently, on my examination today, his left side is slightly better, it is slightly spastic, and he is moving a little bit more than compared to what was seen by previous consultants. He is alert and opens eyes to voice and follow simple commands. He is intubated due to mucus plug and he has hypoxemia secondary to aspiration pneumonia. Pending tracheostomy as well as PEG tube placement. PAST MEDICAL HISTORY: Hypertension, anemia, and ETOH abuse. ALLERGIES: No known drug allergies. SOCIAL HISTORY: He is a chronic ETOH drinker, casual smoker, and no illicit drug use. REVIEW OF SYSTEMS: A 14-point review of systems negative except in the HPI. MEDICATIONS: Reviewed by nurse per reconciliation sheet. FAMILY HISTORY: Noncontributory. PHYSICAL EXAMINATION VITAL SIGNS: Temperature 98.7, pulse rate 76, blood pressure at 127/71, respiratory rate 15, oxygen saturation 100% by mechanical ventilation. GENERAL: The patient seen lying in bed, intubated, in no acute distress. HEENT: Head is atraumatic and normocephalic. PERRLA. Extraocular muscles intact. NECK: Supple. No JVD. No adenopathy noted. LUNGS: Decreased breath sounds bilaterally, some scattered rhonchi. HEART: S1 and S2, normal rate and rhythm. No murmur, rubs or gallops. ABDOMEN: Soft, nontender, nondistended. Bowel sounds present. EXTREMITIES: No clubbing. No cyanosis. Peripheral pulses 2+ felt bilaterally. NEUROLOGIC: The patient is lethargic and is alert and oriented to self. He is dysarthric, has a left facial droop on cranial nerve examination otherwise rest is intact. Motor exam: Has left side hemiparesis with slight increased toenail in the left side indicating some more movement. Left toe is upgoing, right toe is downgoing. Right side motor strength is intact. DTR's are 2+ throughout. Coordination [id number] on the right is intact, but left is difficult due to left sided weakness. Gait is deferred for now. LABORATORY DATA: Sodium is 134, potassium is 3.3, chloride is 98, carbon dioxide is 29, BUN of 8, creatinine of 0.4, random glucose of 108. ASSESSMENT AND PLAN: This is a 56-year-old homeless man with past medical history of hypertension, anemia, ETOH abuse, presented to the ER initially for multiple falls, minor head traumas, and feeling off balance, and felt like he had numbness sensation of his feet. He had a CAT scan in the ER, which showed multiple bilateral lacunar infarcts and severe cortical atrophy. He was admitted to on the telemetry way, but they thought him for having acute right middle cerebral artery territory infarct on the MRI of the brain. He was started on aspirin 81 mg and Plavix 75 along with statin. He was on gabapentin 300 mg p.o. t.i.d. and Seroquel for agitation, Ativan p.r.n. for agitation as well. His Carotid Doppler showed no significant hemodynamic stenosis. His EEG just showed bilateral cerebral dysfunction. No evidence of epileptiform activity. Echocardiogram showed normal EF and no wall motion abnormalities. CT angiogram of the neck showed no blood clot. He had a repeat MRI also on 05/04/2017, which showed just subacute right basal ganglia infarct. Currently, his daily interims has resolved, but he is less lethargic due to his right middle cerebral artery territory infarct. Right middle cerebral artery territory infarcts do make the patient cognitively slower as well as very lethargic. He definitely needs a PEG for nutritional in order to give nutrition to the brain as well as tracheostomy since he has been intubated for prolonged time. He has underlying aspiration pneumonia, which has been treated with antibiotics. His right middle cerebral artery territory infarct is secondary to diffuse atherosclerotic disease and some uncontrolled hypertension. At this time, we will recommend: 1. You can hold the aspirin and Plavix for 72 hours if you want to do the tracheostomy or the PEG placement or you can continue the aspirin 81 and hold the Plavix for 72 hours the max, in order to do the PEG placement as well as tracheostomy. He is cleared from neuro perspective to get those two procedures done with me holding his duo antiplatelet medications for maximum 72 hours given his risk of developing further stroke and diffuse atherosclerotic disease. 2. Keep his blood pressure to 130-140. 3. Continue with his current antibiotics for underlying aspiration pneumonia. 4. Continue to monitor his electrolytes and correct accordingly. 5. Continue with thiamine, folic acid, multivitamins for his underlying history of alcohol use/alcohol withdrawal. 6. We will need acute rehab for PT/OT once stable. James Pierson MD
[2017-05-19] MEDS: Meropenem 1 GM in Sodium Chloride 0.9% 100 ML IVPB SCH ×3 (00:29→17:27)
[2017-05-19] MEDS: Potassium Ch 20mEq in D5-1/2NS 1,000 ML IV SCH (03:41)
[2017-05-19 05:30] LABS: ABG ALLEN TEST YES; ABG MECHANICAL RATE 16; ARTERIAL BLOOD GAS HCO3 31.3 mmol/L (21-28); ARTERIAL BLOOD GAS MODE A/C; ARTERIAL BLOOD GAS O2 CONTENT 14.9 ML/dL (15-23); ARTERIAL BLOOD GAS PO2 145 mm/Hg (80-100); ARTERIAL BLOOD HGB O2 SAT 97.1 % (95.0-98.0); ATERIAL BLOOD GAS PEEP 5; CARBOXYHEMOGLOBIN 0.7 % (0.5-1.5); HHB 0.8 % (0.0-5.0); METHEMOGLOBIN 1.3 % (0.0-3.0)
[2017-05-19 06:47] LABS: HEMATOCRIT 31.2 % (35.0-51.0); MEAN CELL VOLUME 100.3 fl (80.0-94.0); MEAN CORPUSCULAR HEMOGLOBIN 33.8 pg (27.0-31.0); MEAN CORPUSCULAR HGB CONC 33.7 g/dL (33.0-37.0); RED CELL DISTRIBUTION WIDTH 13.6 % (11.5-14.5); WHITE BLOOD COUNT 9.8 K/uL (4.8-10.8)
[2017-05-19 07:05] LABS: BLOOD UREA NITROGEN 7 mg/dl (9-20); CALCIUM 8.4 mg/dL (8.4-10.2); CARBON DIOXIDE 29 mmol/L (22-30); CHLORIDE 99 mmol/L (98-107); GFR AFRICAN-AMERICAN > 60; GLUCOSE,RANDOM 110 mg/dL (75-110); POTASSIUM 3.6 MMOL/L (3.6-5.0); SODIUM 133 mmol/l (132-148)
--- NOTE | 2017-05-19 07:26 | CP.PCM.PN ---
<Nati Glover - Last Filed: 05/19/17 07:35> Subjective - Date & Time of Evaluation Date of Evaluation: 05/19/17 Time of Evaluation: 07:00 - Subjective Subjective: PGY4 GI Follow-up Pt seen and examined bedside No acute overnight events as per staff Still intubated Opens eyes when spoken too and follows simple commands Feeds stopped since midnight ROS: could not obtain 2/2 intubation and non-verbal state Objective - Vital Signs/Intake and Output Vital Signs (last 24 hours): Temp Pulse Resp BP Pulse Ox 98 F 68 21 154/80 H 100 05/19/17 00:00 05/19/17 02:00 05/19/17 02:00 05/19/17 02:00 05/19/17 02:00 Intake and Output: 05/19/17 05/19/17 06:59 18:59 Intake Total 1520 Balance 1520 - Medications Medications: Current Medications Acetaminophen (Tylenol 325mg Tab) 650 mg PO Q6 PRN PRN Reason: Pain, Mild (1-3) Last Admin: 05/15/17 13:46 Dose: 650 mg Acetaminophen (Tylenol 650 Mg Supp) 650 mg [place] Q6 PRN PRN Reason: Fever >100.4 F Last Admin: 05/11/17 04:50 Dose: 650 mg Albuterol/Ipratropium (Duoneb 3 Mg/0.5 Mg (3 Ml) Ud) 3 ml INH RQID [facility] Last Admin: 05/18/17 19:48 Dose: 3 ml Aspirin (Aspirin Chewable) 81 mg PO DAILY [facility] Last Admin: 05/17/17 09:05 Dose: Not Given Atorvastatin Calcium (Lipitor) 40 mg PO DAILY [facility] Last Admin: 05/18/17 08:59 Dose: 40 mg Clonidine HCl (Catapres) 0.1 mg PO BID [facility] Last Admin: 05/18/17 16:57 Dose: 0.1 mg Clopidogrel Bisulfate (Plavix) 75 mg PO DAILY [facility] Last Admin: 05/17/17 09:10 Dose: Not Given Enalapril Maleate (Vasotec) 10 mg PO BID [facility] Last Admin: 05/18/17 16:57 Dose: 10 mg Enoxaparin Sodium (Lovenox) 40 mg SC DAILY [facility] PRN Reason: Protocol Last Admin: 05/18/17 08:59 Dose: 40 mg Folic Acid (Folic Acid) 1 mg PO DAILY [facility] Last Admin: 05/18/17 08:59 Dose: 1 mg Guaifenesin (Robitussin) 100 mg PO Q6 PRN PRN Reason: Cough Vancomycin HCl 1 gm/ Sodium (Chloride) 250 mls @ 166.667 mls/hr IVPB Q12 [facility] Last Admin: 05/18/17 20:02 Dose: 166.667 mls/hr Meropenem 1 gm/ Sodium (Chloride) 100 mls @ 100 mls/hr IVPB Q8 [facility] Last Admin: 05/19/17 00:29 Dose: 100 mls/hr Potassium Chloride/Dextrose/Sod Cl (Potassium Chl 20 Meq In D5-1/2ns) 1,000 mls @ 79.208 mls/hr IV .[id number] [facility] Stop: 05/20/17 02:50 Last Admin: 05/19/17 03:41 Dose: 79.208 mls/hr Lorazepam (Ativan) 1 mg IVP Q6 PRN PRN Reason: Agitation Last Admin: 05/18/17 22:55 Dose: 1 mg Morphine Sulfate (Morphine) 2 mg IVP Q6 PRN PRN Reason: Agitation Last Admin: 05/19/17 07:20 Dose: 2 mg Multivitamins/Vitamin C (Multi-Delyn Liquid) 5 ml PO DAILY [facility] Last Admin: 05/18/17 09:00 Dose: 5 ml Pantoprazole Sodium (Protonix Susp) 40 mg PO DAILY [facility] Last Admin: 05/18/17 09:00 Dose: 40 mg Quetiapine Fumarate (Seroquel) 25 mg PO [facility] Last Admin: 05/03/17 22:55 Dose: Not Given Thiamine HCl (Vitamin B1 Tab) 100 mg PO DAILY [facility] Last Admin: 05/18/17 09:00 Dose: 100 mg - Labs Labs: 05/19/17 05:00 05/19/17 05:00 PT 13.8 Seconds (9.8-13.1) H 05/15/17 10:20 INR 1.3 (0.9-1.2) H 05/15/17 10:20 APTT 34.9 Seconds (25.6-37.1) 05/15/17 10:20 - Constitutional Appears: Chronically Ill - Head Exam Head Exam: ATRAUMATIC, NORMOCEPHALIC - Eye Exam Eye Exam: Normal appearance - ENT Exam ENT Exam: Mucous Membranes Moist, Normal Exam - Respiratory Exam Respiratory Exam: Clear to Ausculation Bilateral, NORMAL BREATHING PATTERN. absent: Rales, Rhonchi, Wheezes, Respiratory Distress - Cardiovascular Exam Cardiovascular Exam: REGULAR RHYTHM, +S1, +S2 - GI/Abdominal Exam GI & Abdominal Exam: Soft, Normal Bowel Sounds. absent: Guarding, Rigid, Tenderness - Extremities Exam Extremities Exam: absent: Joint Swelling, Pedal Edema - Neurological Exam Neurological Exam: Awake - Psychiatric Exam Additional comments: unable to assess due to intubation - Skin Skin Exam: Dry, Intact, Normal Color, Warm Assessment and Plan - Assessment and Plan (Free Text) Assessment: This is a 56yM with a hx of alcohol abuse, HTN, CBP s/p fall and found to have a Acute CVA with left sided weakness, dysarthria and dysphagia. Request for PEG tube placement. 1. Respiratory failure s/p intubation and MV 2. Aspiration PNA 3. Dyphagia with aspiration due to CVA 4. Acute CVA- Right Basal ganglia, narayanan radiata infarct 5. Macrocytic Anemia 6. ETOH abuse/dependence s/p DTs Plan: -daughter is apparently now willing to give consent for the PEG -will schedule for tomorrow -Stop feeds after midnight - Plavix held as per neuro - will call daughter today to get consent over the phone -Continue abx as per ID Will D/W Dr. Tolbert <Didi CRAWFORD,[facility] - Last Filed: 05/19/17 13:20> Objective - Vital Signs/Intake and Output Vital Signs (last 24 hours): Temp Pulse Resp BP Pulse Ox 98.8 F 80 20 146/77 100 05/19/17 12:00 05/19/17 12:00 05/19/17 12:00 05/19/17 12:00 05/19/17 12:00 Intake and Output: 05/19/17 05/19/17 06:59 18:59 Intake Total 1520 Balance 1520 - Medications Medications: Current Medications Acetaminophen (Tylenol 325mg Tab) 650 mg PO Q6 PRN PRN Reason: Pain, Mild (1-3) Last Admin: 05/15/17 13:46 Dose: 650 mg Acetaminophen (Tylenol 650 Mg Supp) 650 mg [place] Q6 PRN PRN Reason: Fever >100.4 F Last Admin: 05/11/17 04:50 Dose: 650 mg Acetylcysteine (Acetylcysteine 20%) 2 ml INH RBID [facility] Albuterol/Ipratropium (Duoneb 3 Mg/0.5 Mg (3 Ml) Ud) 3 ml INH RQID [facility] Last Admin: 05/19/17 11:40 Dose: 3 ml Aspirin (Aspirin Chewable) 81 mg PO DAILY [facility] Last Admin: 05/17/17 09:05 Dose: Not Given Atorvastatin Calcium (Lipitor) 40 mg PO DAILY [facility] Last Admin: 05/19/17 08:28 Dose: 40 mg Clonidine HCl (Catapres) 0.1 mg PO BID [facility] Last Admin: 05/19/17 08:27 Dose: 0.1 mg Clopidogrel Bisulfate (Plavix) 75 mg PO DAILY [facility] Last Admin: 05/17/17 09:10 Dose: Not Given Enalapril Maleate (Vasotec) 10 mg PO BID [facility] Last Admin: 05/19/17 08:33 Dose: 10 mg Enoxaparin Sodium (Lovenox) 40 mg SC DAILY [facility] PRN Reason: Protocol Last Admin: 05/19/17 08:28 Dose: 40 mg Folic Acid (Folic Acid) 1 mg PO DAILY [facility] Last Admin: 05/19/17 08:28 Dose: 1 mg Guaifenesin (Robitussin) 100 mg PO Q6 PRN PRN Reason: Cough Vancomycin HCl 1 gm/ Sodium (Chloride) 250 mls @ 166.667 mls/hr IVPB Q12 [facility] Last Admin: 05/19/17 08:32 Dose: 166.667 mls/hr Meropenem 1 gm/ Sodium (Chloride) 100 mls @ 100 mls/hr IVPB Q8 [facility] Last Admin: 05/19/17 08:30 Dose: 100 mls/hr Potassium Chloride/Dextrose/Sod Cl (Potassium Chl 20 Meq In D5-1/2ns) 1,000 mls @ 79.208 mls/hr IV .[id number] [facility] Stop: 05/20/17 02:50 Last Admin: 05/19/17 03:41 Dose: 79.208 mls/hr Lorazepam (Ativan) 1 mg IVP Q6 PRN PRN Reason: Agitation Last Admin: 05/18/17 22:55 Dose: 1 mg Morphine Sulfate (Morphine) 2 mg IVP Q6 PRN PRN Reason: Agitation Last Admin: 05/19/17 07:20 Dose: 2 mg Multivitamins/Vitamin C (Multi-Delyn Liquid) 5 ml PO DAILY [facility] Last Admin: 05/19/17 08:30 Dose: 5 ml Pantoprazole Sodium (Protonix Susp) 40 mg PO DAILY [facility] Last Admin: 05/19/17 08:31 Dose: 40 mg Quetiapine Fumarate (Seroquel) 25 mg PO HS [facility] Last Admin: 05/03/17 22:55 Dose: Not Given Thiamine HCl (Vitamin B1 Tab) 100 mg PO DAILY [facility] Last Admin: 05/19/17 08:33 Dose: 100 mg - Labs Labs: 05/19/17 05:00 05/19/17 05:00 PT 13.8 Seconds (9.8-13.1) H 05/15/17 10:20 INR 1.3 (0.9-1.2) H 05/15/17 10:20 APTT 34.9 Seconds (25.6-37.1) 05/15/17 10:20 Attending/Attestation - Attestation I have personally seen and examined this patient.: Yes I have fully participated in the care of the patient.: Yes I have reviewed all pertinent clinical information, including history, physical exam and plan: Yes Notes (Text): 05/19/17 13:18 Patient seen in MICU with GI fellow on rounds. This is a 56 yr old M with a hx of alcohol abuse, HTN, CBP s/p fall and found to have a Acute CVA with left sided weakness, dysarthria and dysphagia. Request for PEG tube placement. Unable to establish clear power of kirby for peg placement consent FROM [facility]. Spoke to nephmonica Baumann who does not have POA and patient has a legal daughter. Yesterday daughter agreed to sign consent for PEG. Called daughter this morning but number is now disconnected. Meanwhile MICU extubated the patient. No role for gastrostomy placement. Aspiration precautions. Speech and swallow in few days. Can restart dual anti platelet as advised by neurology. Thank you for letting us participate in the care of your patient.
[2017-05-19] MEDS: Albuterol-Ipratrop 3 mg / 0.5 (3 ml) UD INH SCH ×4 (08:09→19:17)
[2017-05-19] MEDS: Enoxaparin 40 mg Syringe SC SCH (08:28)
[2017-05-19] MEDS: Multiple Vitamins Oral Solution PO SCH (08:30)
[2017-05-19] MEDS: Pantoprazole 40 mg Susp UD PO SCH (08:31)
--- NOTE | 2017-05-19 10:36 | RAD ---
HISTORY: ETT placement COMPARISON: Portable chest 05/18/2017. FINDINGS: Endotracheal tube appears to have in place terminating just above the level of clavicles in the plane of the trachea. Advancement of the endotracheal tube 3-4 cm antegrade is advised followed by repeat radiography to confirm. LUNGS: Limited upper left infiltrate is likely slightly diminished further in the interval with retrocardiac opacity unchanged reflecting basilar atelectasis at the left. No pleural effusion bilaterally. No pneumothorax. Right lung appears clear once again. PLEURA: As per above. CARDIOVASCULAR: Normal. OSSEOUS STRUCTURES: No significant abnormalities. VISUALIZED UPPER ABDOMEN: Normal. OTHER FINDINGS: None. IMPRESSION: 1. Endotracheal tube terminates above the clavicles by less than 1 cm. Adjustment antegrade is advised as discussed above. Follow-up chest radiography recommended subsequently. 2. Mildly diminished infiltrate left upper lung zone with left basilar atelectasis remaining. Findings discussed with nurse Martina 05/19/2017 10:25 a.m. with written down and read back verification made.
[2017-05-19 11:03] LABS: ABG ALLEN TEST YES; ARTERIAL BLOOD GAS HCO3 32.2 mmol/L (21-28); ARTERIAL BLOOD GAS MODE CPAP; ARTERIAL BLOOD GAS O2 CAPACITY 15.7 mL/dL (16-24); ARTERIAL BLOOD GAS O2 CONTENT 15.6 ML/dL (15-23); ARTERIAL BLOOD GAS PO2 163 mm/Hg (80-100); ARTERIAL BLOOD HGB O2 SAT 96.6 % (95.0-98.0); CARBOXYHEMOGLOBIN 0.7 % (0.5-1.5); HHB 0.9 % (0.0-5.0); METHEMOGLOBIN 1.7 % (0.0-3.0)
--- NOTE | 2017-05-19 11:32 | PCM.PROC ---
Procedures Attestation:: I certify that I have explained the specified Operation(s) or Procedure(s), risks, benefits and reasonable alternatives to the Patient and/or other person responsible. The opportunity was given to ask questions and all questions answered - Extubation Clinical Parameters: Resolution/Stabilization of disease process, Hemodynamically Stable, Intact Cough/Gag Reflex, Spontaneous Respirations, Acceptable Vent Settings (FIO2<50%, PEEP<8, PaO2>75, pH>7.25) Weaning Criteria Met: Yes General Weaning Approaches: Pressure Support Ventilation (PSV) Weaning Patient Condition: Patient has been successfully extubated and assessed Oxygen Therapy: O2 via Venti Mask Patient Tolerated Procedure: Well
--- NOTE | 2017-05-19 11:49 | CP.PCM.PN ---
Subjective - Date & Time of Evaluation Date of Evaluation: 05/19/17 Time of Evaluation: 11:30 - Subjective Subjective: Pt just got extubated No fever follows simple commands Voice very soft however was able to tell me his name did not know where he was and did not know date moves Right extremities and LUE though L seem to be weaker compared to the right Discussed with Dr Garrison - he will not do Bronchoscopy Objective - Vital Signs/Intake and Output Vital Signs (last 24 hours): Temp Pulse Resp BP Pulse Ox 98.8 F 81 25 H 139/82 100 05/19/17 10:00 05/19/17 10:00 05/19/17 10:00 05/19/17 10:00 05/19/17 10:00 Intake and Output: 05/19/17 05/19/17 06:59 18:59 Intake Total 1520 Balance 1520 - Medications Medications: Current Medications Acetaminophen (Tylenol 325mg Tab) 650 mg PO Q6 PRN PRN Reason: Pain, Mild (1-3) Last Admin: 05/15/17 13:46 Dose: 650 mg Acetaminophen (Tylenol 650 Mg Supp) 650 mg [place] Q6 PRN PRN Reason: Fever >100.4 F Last Admin: 05/11/17 04:50 Dose: 650 mg Albuterol/Ipratropium (Duoneb 3 Mg/0.5 Mg (3 Ml) Ud) 3 ml INH RQID [facility] Last Admin: 05/19/17 11:40 Dose: 3 ml Aspirin (Aspirin Chewable) 81 mg PO DAILY [facility] Last Admin: 05/17/17 09:05 Dose: Not Given Atorvastatin Calcium (Lipitor) 40 mg PO DAILY [facility] Last Admin: 05/19/17 08:28 Dose: 40 mg Clonidine HCl (Catapres) 0.1 mg PO BID [facility] Last Admin: 05/19/17 08:27 Dose: 0.1 mg Clopidogrel Bisulfate (Plavix) 75 mg PO DAILY [facility] Last Admin: 05/17/17 09:10 Dose: Not Given Enalapril Maleate (Vasotec) 10 mg PO BID [facility] Last Admin: 05/19/17 08:33 Dose: 10 mg Enoxaparin Sodium (Lovenox) 40 mg SC DAILY [facility] PRN Reason: Protocol Last Admin: 05/19/17 08:28 Dose: 40 mg Folic Acid (Folic Acid) 1 mg PO DAILY [facility] Last Admin: 05/19/17 08:28 Dose: 1 mg Guaifenesin (Robitussin) 100 mg PO Q6 PRN PRN Reason: Cough Vancomycin HCl 1 gm/ Sodium (Chloride) 250 mls @ 166.667 mls/hr IVPB Q12 [facility] Last Admin: 05/19/17 08:32 Dose: 166.667 mls/hr Meropenem 1 gm/ Sodium (Chloride) 100 mls @ 100 mls/hr IVPB Q8 [facility] Last Admin: 05/19/17 08:30 Dose: 100 mls/hr Potassium Chloride/Dextrose/Sod Cl (Potassium Chl 20 Meq In D5-1/2ns) 1,000 mls @ 79.208 mls/hr IV .[id number] [facility] Stop: 05/20/17 02:50 Last Admin: 05/19/17 03:41 Dose: 79.208 mls/hr Lorazepam (Ativan) 1 mg IVP Q6 PRN PRN Reason: Agitation Last Admin: 05/18/17 22:55 Dose: 1 mg Morphine Sulfate (Morphine) 2 mg IVP Q6 PRN PRN Reason: Agitation Last Admin: 05/19/17 07:20 Dose: 2 mg Multivitamins/Vitamin C (Multi-Delyn Liquid) 5 ml PO DAILY [facility] Last Admin: 05/19/17 08:30 Dose: 5 ml Pantoprazole Sodium (Protonix Susp) 40 mg PO DAILY [facility] Last Admin: 05/19/17 08:31 Dose: 40 mg Quetiapine Fumarate (Seroquel) 25 mg PO HS [facility] Last Admin: 05/03/17 22:55 Dose: Not Given Thiamine HCl (Vitamin B1 Tab) 100 mg PO DAILY [facility] Last Admin: 05/19/17 08:33 Dose: 100 mg - Labs Labs: 05/19/17 05:00 05/19/17 05:00 PT 13.8 Seconds (9.8-13.1) H 05/15/17 10:20 INR 1.3 (0.9-1.2) H 05/15/17 10:20 APTT 34.9 Seconds (25.6-37.1) 05/15/17 10:20 - Constitutional Appears: In Acute Distress, Unkempt, Older Than Stated Age, Cachectic, Chronically Ill - Head Exam Head Exam: NORMAL INSPECTION, NORMOCEPHALIC - Eye Exam Eye Exam: EOMI, Normal appearance Pupil Exam: NORMAL ACCOMODATION - ENT Exam ENT Exam: Mucous Membranes Dry, Normal External Ear Exam - Neck Exam Neck Exam: Full ROM. absent: Meningismus - Respiratory Exam Respiratory Exam: Rales, Rhonchi. absent: Wheezes Additional comments: Extubated - now on Ventimask - Cardiovascular Exam Cardiovascular Exam: REGULAR RHYTHM, +S1, +S2 - GI/Abdominal Exam GI & Abdominal Exam: Soft, Normal Bowel Sounds. absent: Tenderness - Extremities Exam Extremities Exam: Normal Capillary Refill. absent: Calf Tenderness, Pedal Edema - Neurological Exam Neurological Exam: Alert, Awake Additional comments: oriented to person moves RUE and RLE noted to be able to move LUE with gravity though weaker than R did not move LLE when asked - Psychiatric Exam Psychiatric exam: Flat Affect - Skin Skin Exam: Dry, Normal Color, Warm Assessment and Plan - Assessment and Plan (Free Text) Assessment: 56 y/o homeless male with PMHx significant for HTN, anemia, and EtOH abuse presented to ER with multiple falls and minor head trauma. He stated that he had been feeling 'off balance' and falling more over the past several days. Denied any focal weakness, but felt like both his feet were numb (this is ongoing, not new) and also c/o back pain (also chronic); he also felt off balance more lately as well. patient has history of chronic ETOH use . CT head in ER showed Multiple bilateral lacunar infarcts and severe cortical atrophy. Patient admitted in telemetry for close monitoring. MRI head showed acute right MCA stroke Patient started on ASa, lovenox and statin. Neurology and PT consulted He developed DT-s and was started on gabapentin 300 mg PO TID , Seroquel and Ativan PRN Patient became more lethargic with dyarthria, dysphagia, left facial droop and left side weakness. Repeat MRI of the head showed : Findings compatible with the known recent right basal ganglia infarct. No new areas of infarction seen. No MR evidence of associated hemorrhage. He developed acute hypoxemic respiratory failure on 05/09 likely due to Aspiration PNA, was intubated and transferred to ICU. At present he was just extubated and placed on a Venti mask. Neurologically he is awake, follows simple commands, moving right side of his body and also now able to move LUE again gravity but no movement to LLE. Note : Patient's next of kin is his daughter Catia ) . She has been informed in detail about patient's condition , findings, prognosis and plan of care. Patient has a large left sided stroke with significant neurodeficits , left sided weakness, dysphagia. She is willing and available to be called and provide necessary consents if needed for any procedures deemed necessary . 1. Acute Respiratory failure with Hypoxia sec to Aspiration Pneumonia Pt was intubated for more than 10 days in ICU -he was just Extubated now Sputum cultures positive for MRSA and Serratia Marcescen and patient is on meropenem and Vanco IV as per ID Initial CXR showed total opacification of left lung 05/09 Repeat CXR with improvement of left infiltrate WBC trended down to normal, afebrile at present keep head of the bed elevated frequent suctioning and aspiration precautions Since pt was extubated - Dr Garrison cancelled Bronchoscopy Trach placement on hold GI consulted for peg placement . Swallow re-eval 2. Acute Ischemic stroke - Right MCA distribution patient became lethargic with dysarthria, dysphagia, left facial droop and left side hemiparesis with stroke progression MRI of the head 04/28 : 1. Acute right MCA territory infarction involving the right narayanan radiata and basal ganglia. CTA neck showed no Blood clot , carotid doppler showed no stenosis Echo showed normal EF and wall motion Repeat CT head showed no hemorrhagic conversion EEG: No epileptiform activity Neuro on board following Has been on ASA, statin ,Plavix . Discussed with neurology Dr. Pierson . Rec to hold ASA, Plavix - max for only 72 hrs if pt needs to go fo a surgical intervention ( ie PEG placment) keep head of the bed elevated . PT/OT,Speech re-eval 3.ETOH withdrawal/ Delirium tremens-- resolved but now lethargic due to CVA patient was tachycardic, tremulous, confused with visual hallucinations on admission was initially Started on librium tapering dose-- discontinued due to sedation discussed with neurology who recommended to start patient on gabapentin and Seroquel HS that were discontinued due to lethargy Continue thiamine, folic acid, MVI, Seizure precautions Ativan prn 4. HTN uncontrolled change Enalapril to 10 mg po BID continue Clonidine 5.Thrombocytopenia- improved most likely chronic secondary to ETOH abuse 6.Hypokalemia, replace with Kcl 7. Anemia of chronic disease hgb 9.7 monitor 8. DVT PPx Lovenox
--- NOTE | 2017-05-19 11:54 | CP.CCUPN ---
CCU Subjective - Physician Review Subjective (Free Text): Events of 05/16-05/17 noted with need for re-intubation after ETT clogged with secretions. Now readily opens eyes to verbal commands and tactile stimulus, intermittently agitated with tachypnea and medicated with Morphine, Also getting Labetalol prn for accelerated HTN episodes. Left side flaccidity has resolved!. No fever spikes last 5 days. Current MV settings; AC 16, TV 450, 50 % and 5 PEEP. CXR reviewed: my interp shows ETT position OK above gavino, marked improvement noted in left lung interstitial changes which were previously diffuse with loss of lung volume, now improved aeration noted since my last patient encounter on . Other vitals and I/Os reviewed. ROS: intubated, unable to obtain any other pertinent negs or positives on 10+ system review. PMSFH: All Nursing and physician documentation reviewed to date; no new pertinent info noted relevant to current medical problems. MAJOR PROBLEMS: 1. Acute Hypoxic Resp failure 2 pneumonia - Aspiration 2. Metabolic Encephalopathy 3. CVA-subacute 4. h/o ETOH Abuse PLAN: 1. Serial ABGs show that patient could tolerate a decrease fio2 to 45-40%, try SBTs / MV weans. May be amenable to extubation today. 2. Intubated 05/09, now day # 12 on MV, aware that plans have been made for Trach on 05/20. Consent for procedures remain an issue. 3. Repeat CT Brain on 05/11 showed no acute bleed. Antiplatelet therapy resumed on 05/13 with both ASA and Plavix, have now been placed on hold again from 05/17. Lovenox remains. 4. Would minimize sedative and anxiolytic use in order to fully assess neuromental status. Given alcoholism history, doubt any ETOH withdrawal effects evident now nor need to treat for expectantly. 5. Would consider using another anti-HTN agent other than Clonidine given its [employer] depressant effects, unless it was originally used for its dual effect on BP control and mediation of withdrawal symptoms. 6. Noted MRSA and Serratia marcesens organisms isolated form sputum, remains yellow in color. On Nilson and Vanco. Would consider repeat sputum cx again to assess for clearance. 7. If trach procedure proceeds on Sunday 05/20, OGT should be replaced with an NGT, unless permission for PEG is concomitantly obtained and will performed soon as well, though a PEG is not deemed emergent at this time. 8. Given need to exchange ETT, discuss with [employer] dept to change HME more frequently or switch to heated cascade humidification of vent circuit. CCU Objective - Vital Signs / Intake & Output Vital Signs (Last 4 hours): Vital Signs Temp Pulse Resp BP Pulse Ox 05/19/17 10:00 98.8 F 81 25 H 139/82 100 05/19/17 08:27 80 153/78 H 05/19/17 08:00 98.5 F 80 17 153/78 H 100 Intake and Output (Last 8hrs): Intake & Output 05/18/17 05/19/17 05/19/17 22:59 06:59 14:59 Intake Total 1585 765 Output Total 1500 Balance 85 765 Intake: IV 400 320 Intake, Piggyback 350 100 Oral 100 Tube Feeding 300 200 Free Water Flush 435 145 Output: Urine 1500 Urethral (Adame) 1500 - Physical Exam Head: Positive for: Atraumatic, Normocephalic Pupils: Positive for: PERRL Extroacular Muscles: Positive for: EOMI Conjunctiva: Positive for: Normal Mouth: Positive for: Moist Mucous Membranes Neck: Negative for: JVD, Bruit Respiratory/Chest: Positive for: Decreased Breath Sounds (left), Rhonchi ( diffuse) Cardiovascular: Positive for: Regular Rate and Rhythm Abdomen: Positive for: Normal Bowel Sounds. Negative for: Tenderness, Distention Upper Extremity: Positive for: Edema, Capillary Refill < 2s, Other (spontaneous movement of right arm). Negative for: Cyanosis Lower Extremity: Positive for: Edema (Bilateral dependent +2 edema), NORMAL PULSES, Other (L side weakness noted, spontaneous movement of right leg). Negative for: CALF TENDERNESS, Cyanosis Neurological: Positive for: Other ((Left hemiplegia)) Skin: Positive for: Warm. Negative for: Rashes, Diaphoretic Psychiatric: Positive for: Alert - Medications Active Medications: Active Medications Generic Name Dose Route Start Last Admin Trade Name Freq PRN Reason Stop Dose Admin Acetaminophen 650 mg 04/27/17 03:51 05/15/17 13:46 Tylenol 325mg Tab PO 650 mg Q6 PRN Administration Pain, Mild (1-3) Acetaminophen 650 mg 05/09/17 12:30 05/11/17 04:50 Tylenol 650 Mg Supp IN 650 mg Q6 PRN Administration Fever >100.4 F Albuterol/Ipratropium 3 ml 05/04/17 20:00 05/19/17 11:40 Duoneb 3 Mg/0.5 Mg (3 Ml) Ud INH 3 ml RQID [facility] Administration Aspirin 81 mg 04/27/17 09:00 05/17/17 09:05 Aspirin Chewable PO Not Given DAILY [facility] Atorvastatin Calcium 40 mg 04/27/17 09:00 05/19/17 08:28 Lipitor PO 40 mg DAILY [facility] Administration Clonidine HCl 0.1 mg 05/15/17 17:00 05/19/17 08:27 Catapres PO 0.1 mg BID [facility] Administration Clopidogrel Bisulfate 75 mg 05/11/17 17:18 05/17/17 09:10 Plavix PO Not Given DAILY [facility] Enalapril Maleate 10 mg 05/17/17 17:00 05/19/17 08:33 Vasotec PO 10 mg BID [facility] Administration Enoxaparin Sodium 40 mg 04/27/17 09:00 05/19/17 08:28 Lovenox SC 40 mg DAILY [facility] Administration Protocol Folic Acid 1 mg 04/27/17 15:15 05/19/17 08:28 Folic Acid PO 1 mg DAILY [facility] Administration Guaifenesin 100 mg 05/09/17 15:26 Robitussin PO Q6 PRN Cough Vancomycin HCl 1 gm/ Sodium 250 mls @ 166.667 mls/hr 05/04/17 21:00 05/19/17 08:32 Chloride IVPB 166.667 mls/hr Q12 [facility] Administration Meropenem 1 gm/ Sodium 100 mls @ 100 mls/hr 05/10/17 17:00 05/19/17 08:30 Chloride IVPB 100 mls/hr Q8 [facility] Administration Potassium Chloride/Dextrose/Sod Cl 1,000 mls @ 79.208 mls/hr 05/19/17 03:00 05/19/17 03:41 Potassium Chl 20 Meq In D5-1/2ns IV 05/20/17 02:50 79.208 mls/hr .[id number] [facility] Administration Lorazepam 1 mg 05/10/17 21:57 05/18/17 22:55 Ativan IVP 1 mg Q6 PRN Administration Agitation Morphine Sulfate 2 mg 05/17/17 23:36 05/19/17 07:20 Morphine IVP 2 mg Q6 PRN Administration Agitation Multivitamins/Vitamin C 5 ml 04/27/17 15:15 05/19/17 08:30 Multi-Delyn Liquid PO 5 ml DAILY [facility] Administration Pantoprazole Sodium 40 mg 05/10/17 09:00 05/19/17 08:31 Protonix Susp PO 40 mg DAILY [facility] Administration Quetiapine Fumarate 25 mg 04/28/17 22:00 05/03/17 22:55 Seroquel PO Not Given HS [facility] Thiamine HCl 100 mg 04/27/17 15:15 05/19/17 08:33 Vitamin B1 Tab PO 100 mg DAILY [facility] Administration - Patient Studies Lab Studies: Lab Studies 05/19/17 05/19/17 05/19/17 Range/Units 10:48 05:25 05:00 WBC (4.8-10.8) K/uL RBC (4.40-5.90) Mil/uL Hgb (12.0-18.0) g/dL Hct (35.0-51.0) % MCV (80.0-94.0) fl MCH (27.0-31.0) pg MCHC (33.0-37.0) g/dL RDW (11.5-14.5) % Plt Count (130-400) K/uL pCO2 43 41 (35-45) mm/Hg pO2 163 H 145 H (80-100) mm/Hg HCO3 32.2 H 31.3 H (21-28) mmol/L ABG pH 7.50 H 7.50 H (7.35-7.45) ABG Total CO2 34.8 H 33.3 H (22-28) mmol/L ABG O2 Saturation 99.1 H 99.2 H (95-98) % ABG O2 Content 15.6 14.9 L (15-23) ML/dL ABG Base Excess 9.3 H 8.1 H (-2.0-3.0) mmol/L ABG Hemoglobin 11.2 L 10.7 L (11.7-17.4) g/dL ABG Carboxyhemoglobin 0.7 0.7 (0.5-1.5) % POC ABG HHb (Measured) 0.9 0.8 (0.0-5.0) % ABG Methemoglobin 1.7 1.3 (0.0-3.0) % ABG O2 Capacity 15.7 L 15.0 L (16-24) mL/dL Carson Test Yes Yes A-a O2 Difference 68.0 160.0 mm/Hg Hgb O2 Saturation 96.6 97.1 (95.0-98.0) % Vent Mode Cpap A/c Mechanical Rate 16 FiO2 40.0 50.0 % Tidal Volume 450 PEEP 5 Pressure Support 10 CPAP 5 Sodium 133 (132-148) mmol/l Potassium 3.6 (3.6-5.0) MMOL/L Chloride 99 (98-107) mmol/L Carbon Dioxide 29 (22-30) mmol/L Anion Gap 9 L (10-20) BUN 7 L (9-20) mg/dl Creatinine 0.4 L (0.8-1.5) mg/dL Est GFR ( Amer) > 60 Est GFR (Non-Af Amer) > 60 Random Glucose 110 (75-110) mg/dL Calcium 8.4 (8.4-10.2) mg/dL 05/19/17 Range/Units 05:00 WBC 9.8 (4.8-10.8) K/uL RBC 3.11 L (4.40-5.90) Mil/uL Hgb 10.5 L (12.0-18.0) g/dL Hct 31.2 L (35.0-51.0) % MCV 100.3 H (80.0-94.0) fl MCH 33.8 H (27.0-31.0) pg MCHC 33.7 (33.0-37.0) g/dL RDW 13.6 (11.5-14.5) % Plt Count 150 (130-400) K/uL pCO2 (35-45) mm/Hg pO2 (80-100) mm/Hg HCO3 (21-28) mmol/L ABG pH (7.35-7.45) ABG Total CO2 (22-28) mmol/L ABG O2 Saturation (95-98) % ABG O2 Content (15-23) ML/dL ABG Base Excess (-2.0-3.0) mmol/L ABG Hemoglobin (11.7-17.4) g/dL ABG Carboxyhemoglobin (0.5-1.5) % POC ABG HHb (Measured) (0.0-5.0) % ABG Methemoglobin (0.0-3.0) % ABG O2 Capacity (16-24) mL/dL Carson Test A-a O2 Difference mm/Hg Hgb O2 Saturation (95.0-98.0) % Vent Mode Mechanical Rate FiO2 % Tidal Volume PEEP Pressure Support CPAP Sodium (132-148) mmol/l Potassium (3.6-5.0) MMOL/L Chloride (98-107) mmol/L Carbon Dioxide (22-30) mmol/L Anion Gap (10-20) BUN (9-20) mg/dl Creatinine (0.8-1.5) mg/dL Est GFR ( Amer) Est GFR (Non-Af Amer) Random Glucose (75-110) mg/dL Calcium (8.4-10.2) mg/dL Laboratory Results - last 24 hr 05/19/17 05/19/17 05/19/17 05:00 05:00 05:25 WBC 9.8 RBC 3.11 L Hgb 10.5 L Hct 31.2 L MCV 100.3 H MCH 33.8 H MCHC 33.7 RDW 13.6 Plt Count 150 pCO2 41 pO2 145 H HCO3 31.3 H ABG pH 7.50 H ABG Total CO2 33.3 H ABG O2 Saturation 99.2 H ABG O2 Content 14.9 L ABG Base Excess 8.1 H ABG Hemoglobin 10.7 L ABG Carboxyhemoglobin 0.7 POC ABG HHb (Measured) 0.8 ABG Methemoglobin 1.3 ABG O2 Capacity 15.0 L Carson Test Yes A-a O2 Difference 160.0 Hgb O2 Saturation 97.1 Vent Mode A/c Mechanical Rate 16 FiO2 50.0 Tidal Volume 450 PEEP 5 Pressure Support CPAP Sodium 133 Potassium 3.6 Chloride 99 Carbon Dioxide 29 Anion Gap 9 L BUN 7 L Creatinine 0.4 L Est GFR ( Amer) > 60 Est GFR (Non-Af Amer) > 60 Random Glucose 110 Calcium 8.4 05/19/17 10:48 WBC RBC Hgb Hct MCV MCH MCHC RDW Plt Count pCO2 43 pO2 163 H HCO3 32.2 H ABG pH 7.50 H ABG Total CO2 34.8 H ABG O2 Saturation 99.1 H ABG O2 Content 15.6 ABG Base Excess 9.3 H ABG Hemoglobin 11.2 L ABG Carboxyhemoglobin 0.7 POC ABG HHb (Measured) 0.9 ABG Methemoglobin 1.7 ABG O2 Capacity 15.7 L Carson Test Yes A-a O2 Difference 68.0 Hgb O2 Saturation 96.6 Vent Mode Cpap Mechanical Rate FiO2 40.0 Tidal Volume PEEP Pressure Support 10 CPAP 5 Sodium Potassium Chloride Carbon Dioxide Anion Gap BUN Creatinine Est GFR ( Amer) Est GFR (Non-Af Amer) Random Glucose Calcium Radiology Interpretations (Free Text): CXR reviewed: my interp shows ETT position OK above gavino, marked improvement noted in left lung interstitial changes which were previously diffuse with loss of lung volume, now improved aeration noted since my last patient encounter on . Review of Systems - Review of Systems Systems not reviewed;Unavailable: Intubated Critical Care Progress Note - Ventilator Checklist Head of Bed 30 Degrees: Yes Daily Sedation Vacation: Yes Daily Assessment of Readiness to Wean: Yes Daily Spontaneous Breathing Trial: Yes PUD Prophalyxis: Yes DVT Prophylaxis: Yes Oral Care with Chlorhexidine Gluconate {CHG}: Yes - Vent Settings MODE:: ASSIST CONTROL TIDAL VOLUME:: 450 RESP RATE:: 16 FIO2:: 50 PEEP:: 5 - Extremities/Vascular Does the Patient have a Adame Catheter?: Yes Does the Patient need a Adame Catheter?: Yes Catheter Insertion Criteria: Need for accurate measurement of output in critically ill patient - Restraints Justification for Restraints: High risk for self extubation, High risk for removing IV access, High risk for harming self - Prophylaxis GI Prophylaxis GI: PPI - Prophylaxis DVT Prophylaxis DVT: Lovenox - Nutrition Nutrition: Nutrition Category Date Time Status NPO Diet [DIET] Diets 05/16/17 Breakfast Active NPO Diet [DIET] Diets 05/20/17 Breakfast Active
--- NOTE | 2017-05-19 16:45 | CP.PCM.PN ---
Subjective - Date & Time of Evaluation Date of Evaluation: 05/19/17 Time of Evaluation: 13:00 - Subjective Subjective: F/U Respiratory failure. Pt was extubated, awake,, follows commands. Objective - Vital Signs/Intake and Output Vital Signs (last 24 hours): Temp Pulse Resp BP Pulse Ox 99.0 F 89 30 H 163/77 H 100 05/19/17 14:00 05/19/17 14:00 05/19/17 14:00 05/19/17 14:00 05/19/17 14:00 Intake and Output: 05/19/17 05/19/17 06:59 18:59 Intake Total 1520 Balance 1520 - Medications Medications: Current Medications Acetaminophen (Tylenol 325mg Tab) 650 mg PO Q6 PRN PRN Reason: Pain, Mild (1-3) Last Admin: 05/15/17 13:46 Dose: 650 mg Acetaminophen (Tylenol 650 Mg Supp) 650 mg DE Q6 PRN PRN Reason: Fever >100.4 F Last Admin: 05/11/17 04:50 Dose: 650 mg Acetylcysteine (Acetylcysteine 20%) 2 ml INH RBID [facility] Albuterol/Ipratropium (Duoneb 3 Mg/0.5 Mg (3 Ml) Ud) 3 ml INH RQID [facility] Last Admin: 05/19/17 15:41 Dose: 3 ml Aspirin (Aspirin Chewable) 81 mg PO DAILY [facility] Last Admin: 05/17/17 09:05 Dose: Not Given Aspirin (Aspirin Supp) 300 mg DE DAILY [facility] Atorvastatin Calcium (Lipitor) 40 mg PO DAILY [facility] Last Admin: 05/19/17 08:28 Dose: 40 mg Clonidine HCl (Catapres) 0.1 mg PO BID [facility] Last Admin: 05/19/17 08:27 Dose: 0.1 mg Clopidogrel Bisulfate (Plavix) 75 mg PO DAILY [facility] Last Admin: 05/17/17 09:10 Dose: Not Given Enalapril Maleate (Vasotec) 10 mg PO BID [facility] Last Admin: 05/19/17 08:33 Dose: 10 mg Enoxaparin Sodium (Lovenox) 40 mg SC DAILY [facility] PRN Reason: Protocol Last Admin: 05/19/17 08:28 Dose: 40 mg Folic Acid (Folic Acid) 1 mg PO DAILY [facility] Last Admin: 05/19/17 08:28 Dose: 1 mg Guaifenesin (Robitussin) 100 mg PO Q6 PRN PRN Reason: Cough Hydralazine HCl (Apresoline) 10 mg IV Q6 PRN PRN Reason: Systolic Blood Pressure Vancomycin HCl 1 gm/ Sodium (Chloride) 250 mls @ 166.667 mls/hr IVPB Q12 [facility] Last Admin: 05/19/17 08:32 Dose: 166.667 mls/hr Meropenem 1 gm/ Sodium (Chloride) 100 mls @ 100 mls/hr IVPB Q8 [facility] Last Admin: 05/19/17 08:30 Dose: 100 mls/hr Potassium Chloride/Dextrose/Sod Cl (Potassium Chl 20 Meq In D5-1/2ns) 1,000 mls @ 79.208 mls/hr IV .[id number] [facility] Stop: 05/20/17 02:50 Last Admin: 05/19/17 03:41 Dose: 79.208 mls/hr Lorazepam (Ativan) 1 mg IVP Q6 PRN PRN Reason: Agitation Last Admin: 05/18/17 22:55 Dose: 1 mg Morphine Sulfate (Morphine) 2 mg IVP Q6 PRN PRN Reason: Agitation Last Admin: 05/19/17 07:20 Dose: 2 mg Multivitamins/Vitamin C (Multi-Delyn Liquid) 5 ml PO DAILY [facility] Last Admin: 05/19/17 08:30 Dose: 5 ml Pantoprazole Sodium (Protonix Susp) 40 mg PO DAILY [facility] Last Admin: 05/19/17 08:31 Dose: 40 mg Quetiapine Fumarate (Seroquel) 25 mg PO [facility] Last Admin: 05/03/17 22:55 Dose: Not Given Thiamine HCl (Vitamin B1 Tab) 100 mg PO DAILY [facility] Last Admin: 05/19/17 08:33 Dose: 100 mg - Labs Labs: 05/19/17 05:00 05/19/17 05:00 PT 13.8 Seconds (9.8-13.1) H 05/15/17 10:20 INR 1.3 (0.9-1.2) H 05/15/17 10:20 APTT 34.9 Seconds (25.6-37.1) 05/15/17 10:20 - Constitutional Appears: No Acute Distress - Head Exam Head Exam: NORMAL INSPECTION - Eye Exam Eye Exam: PERRL - ENT Exam Additional comments: Extubated - Neck Exam Neck Exam: Normal Inspection - Respiratory Exam Respiratory Exam: Decreased Breath Sounds, Rhonchi (few at bases) Additional comments: Placed on venturi-mask. - Cardiovascular Exam Cardiovascular Exam: REGULAR RHYTHM - GI/Abdominal Exam GI & Abdominal Exam: Soft, Normal Bowel Sounds - Extremities Exam Extremities Exam: Normal Inspection - Back Exam Back Exam: NORMAL INSPECTION - Neurological Exam Neurological Exam: Awake Additional comments: moves upper extremities, L side weakness, - Psychiatric Exam Psychiatric exam: Flat Affect - Skin Skin Exam: Normal Color, Warm Assessment and Plan (1) Acute respiratory failure Assessment & Plan: Improved Status: Acute (2) MRSA pneumonia Status: Acute (3) Acute right MCA stroke Status: Acute - Assessment and Plan (Free Text) Plan: Scheduled for peg-tube, continue Merren, Vanco, Duoneb and rest of Tx, Pulmonary sport bed. CXR worsening aie space disease , low lung volume with shift mediastinum to left , f/u CXR am ICU Time: 37 min.
[2017-05-19] MEDS ORDERED: Chlorhexidine Gluconate 1 APPL/PKT TP ONE (17:23)
[2017-05-19] MEDS: Acetylcysteine 20% Inhal Soln (4ml) INH SCH (19:16)
[2017-05-20] MEDS: Meropenem 1 GM in Sodium Chloride 0.9% 100 ML IVPB SCH ×3 (00:20→16:18)
[2017-05-20] MEDS: Potassium Ch 20mEq in D5-1/2NS 1,000 ML IV SCH (00:21)
[2017-05-20 05:12] LABS: HEMATOCRIT 34.3 % (35.0-51.0); MEAN CELL VOLUME 100.7 fl (80.0-94.0); MEAN CORPUSCULAR HGB CONC 32.7 g/dL (33.0-37.0); RED CELL DISTRIBUTION WIDTH 13.9 % (11.5-14.5); WHITE BLOOD COUNT 12.1 K/uL (4.8-10.8)
[2017-05-20 05:25] LABS: BLOOD UREA NITROGEN 4 mg/dl (9-20); CALCIUM 8.9 mg/dL (8.4-10.2); CARBON DIOXIDE 33 mmol/L (22-30); CHLORIDE 96 mmol/L (98-107); GFR AFRICAN-AMERICAN > 60; GLUCOSE,RANDOM 100 mg/dL (75-110); POTASSIUM 3.1 MMOL/L (3.6-5.0); SODIUM 134 mmol/l (132-148)
[2017-05-20 05:49] LABS: ABG ALLEN TEST YES; ARTERIAL BLOOD GAS HCO3 33.6 mmol/L (21-28); ARTERIAL BLOOD GAS MODE AEROSOL MASK; ARTERIAL BLOOD GAS O2 CAPACITY 15.4 mL/dL (16-24); ARTERIAL BLOOD GAS O2 CONTENT 15.1 ML/dL (15-23); ARTERIAL BLOOD GAS PH 7.52 (7.35-7.45); ARTERIAL BLOOD GAS PO2 84 mm/Hg (80-100); ARTERIAL BLOOD HGB O2 SAT 95.3 % (95.0-98.0); CARBOXYHEMOGLOBIN 1.3 % (0.5-1.5); HHB 1.6 % (0.0-5.0); METHEMOGLOBIN 1.8 % (0.0-3.0)
[2017-05-20] MEDS: Potassium CL 10mEq/100ml 100 ML IVPB SCH ×3 (06:21→13:31)
[2017-05-20] MEDS ORDERED: Potassium CL 10mEq/100ml 100 ML IVPB SCH (07:00)
[2017-05-20] MEDS: Albuterol-Ipratrop 3 mg / 0.5 (3 ml) UD INH SCH ×4 (07:32→19:50)
[2017-05-20] MEDS: Acetylcysteine 20% Inhal Soln (4ml) INH SCH ×2 (07:32→19:50)
--- NOTE | 2017-05-20 08:17 | CP.PCM.PN ---
Subjective - Date & Time of Evaluation Date of Evaluation: 05/20/17 Time of Evaluation: 08:00 - Subjective Subjective: Patient seen and examined bedside. Lying in bed in NAD. Extubated yesterday and maintaining his airway with good saturation 10 % on venti mask. Awake, alert and oriented , responding to questions appropriately , following commands. No acute issues overnight Hemodynamically stable BP 147/82 HR 73 , afebrile Moving his left side , LLE weaker compared to LUE I/O 1070/4300 ABG 43/84/33/7.5 WBC 12 Hgb 11 Plt 135 K 3.1 Asked patient about who he wants to be surrogate decision maker and he wants his eldest sister Edvin to be the decision maker for him Objective - Vital Signs/Intake and Output Vital Signs (last 24 hours): Temp Pulse Resp BP Pulse Ox 97.7 F 73 24 147/82 100 05/20/17 06:00 05/20/17 06:00 05/20/17 06:00 05/20/17 06:00 05/20/17 06:00 Intake and Output: 05/20/17 05/20/17 06:59 18:59 Intake Total 1070 Output Total 4300 Balance -3230 - Medications Medications: Current Medications Acetaminophen (Tylenol 325mg Tab) 650 mg PO Q6 PRN PRN Reason: Pain, Mild (1-3) Last Admin: 05/15/17 13:46 Dose: 650 mg Acetaminophen (Tylenol 650 Mg Supp) 650 mg UT Q6 PRN PRN Reason: Fever >100.4 F Last Admin: 05/11/17 04:50 Dose: 650 mg Acetylcysteine (Acetylcysteine 20%) 2 ml INH RBID [facility] Last Admin: 05/20/17 07:32 Dose: 2 ml Albuterol/Ipratropium (Duoneb 3 Mg/0.5 Mg (3 Ml) Ud) 3 ml INH RQID [facility] Last Admin: 05/20/17 07:32 Dose: 3 ml Aspirin (Aspirin Chewable) 81 mg PO DAILY [facility] Last Admin: 05/17/17 09:05 Dose: Not Given Aspirin (Aspirin Supp) 300 mg UT DAILY [facility] Last Admin: 05/19/17 17:26 Dose: 300 mg Atorvastatin Calcium (Lipitor) 40 mg PO DAILY [facility] Last Admin: 05/19/17 08:28 Dose: 40 mg Clonidine HCl (Catapres) 0.1 mg PO BID [facility] Last Admin: 05/19/17 17:16 Dose: Not Given Clopidogrel Bisulfate (Plavix) 75 mg PO DAILY [facility] Last Admin: 05/17/17 09:10 Dose: Not Given Enalapril Maleate (Vasotec) 10 mg PO BID [facility] Last Admin: 05/19/17 17:17 Dose: Not Given Enoxaparin Sodium (Lovenox) 40 mg SC DAILY [facility] PRN Reason: Protocol Last Admin: 05/19/17 08:28 Dose: 40 mg Folic Acid (Folic Acid) 1 mg PO DAILY [facility] Last Admin: 05/19/17 08:28 Dose: 1 mg Guaifenesin (Robitussin) 100 mg PO Q6 PRN PRN Reason: Cough Hydralazine HCl (Apresoline) 10 mg IV Q6 PRN PRN Reason: Systolic Blood Pressure Last Admin: 05/19/17 17:27 Dose: 10 mg Vancomycin HCl 1 gm/ Sodium (Chloride) 250 mls @ 166.667 mls/hr IVPB Q12 [facility] Last Admin: 05/19/17 21:00 Dose: 166.667 mls/hr Meropenem 1 gm/ Sodium (Chloride) 100 mls @ 100 mls/hr IVPB Q8 [facility] Last Admin: 05/20/17 00:20 Dose: 100 mls/hr Potassium Chloride (Potassium Chloride 10 Meq/100 Ml) 100 mls @ 100 mls/hr IVPB Q1 [facility] Stop: 05/20/17 08:59 Last Admin: 05/20/17 06:21 Dose: 100 mls/hr Lorazepam (Ativan) 1 mg IVP Q6 PRN PRN Reason: Agitation Last Admin: 05/18/17 22:55 Dose: 1 mg Morphine Sulfate (Morphine) 2 mg IVP Q6 PRN PRN Reason: Agitation Last Admin: 05/19/17 18:20 Dose: 2 mg Multivitamins/Vitamin C (Multi-Delyn Liquid) 5 ml PO DAILY [facility] Last Admin: 05/19/17 08:30 Dose: 5 ml Pantoprazole Sodium (Protonix Susp) 40 mg PO DAILY [facility] Last Admin: 05/19/17 08:31 Dose: 40 mg Quetiapine Fumarate (Seroquel) 25 mg PO HS [facility] Last Admin: 05/03/17 22:55 Dose: Not Given Thiamine HCl (Vitamin B1 Tab) 100 mg PO DAILY [facility] Last Admin: 05/19/17 08:33 Dose: 100 mg - Labs Labs: 05/20/17 04:20 05/20/17 04:20 PT 13.8 Seconds (9.8-13.1) H 05/15/17 10:20 INR 1.3 (0.9-1.2) H 05/15/17 10:20 APTT 34.9 Seconds (25.6-37.1) 05/15/17 10:20 - Constitutional Appears: Non-toxic, No Acute Distress - Head Exam Head Exam: ATRAUMATIC, NORMOCEPHALIC - Eye Exam Eye Exam: EOMI, PERRL Pupil Exam: NORMAL ACCOMODATION - ENT Exam ENT Exam: Mucous Membranes Dry, Normal Exam - Neck Exam Neck Exam: Normal Inspection - Respiratory Exam Respiratory Exam: absent: Wheezes - Cardiovascular Exam Cardiovascular Exam: REGULAR RHYTHM, RRR, +S1, +S2. absent: JVD - GI/Abdominal Exam GI & Abdominal Exam: Soft, Normal Bowel Sounds. absent: Distended, Guarding, Tenderness, Rebound - Rectal Exam Rectal Exam: Deferred - Extremities Exam Extremities Exam: Full ROM, Normal Capillary Refill, Normal Inspection. absent : Calf Tenderness, Pedal Edema - Neurological Exam Neurological Exam: Alert, Awake Neuro motor strength exam: Left Upper Extremity: 4, Right Upper Extremity: 5, Left Lower Extremity: 2/1, Right Lower Extremity: 5 Additional comments: alert awake, oriented follows commands - Psychiatric Exam Psychiatric exam: Normal Affect - Skin Skin Exam: Dry, Intact, Normal Color, Warm Assessment and Plan - Assessment and Plan (Free Text) Assessment: 56 y/o homeless male with PMHx significant for HTN, anemia, and EtOH abuse presented to ER with multiple falls and minor head trauma. He stated that he had been feeling 'off balance' and falling more over the past several days. Denied any focal weakness, but felt like both his feet were numb (this is ongoing, not new) and also c/o back pain (also chronic); he also felt off balance more lately as well. Patient has history of chronic ETOH use . CT head in ER showed Multiple bilateral lacunar infarcts and severe cortical atrophy. Patient admitted in telemetry for close monitoring. MRI head showed acute right MCA stroke Patient started on ASa, lovenox and statin. Neurology and PT consulted He developed DT-s and was started on gabapentin 300 mg PO TID , Seroquel and Ativan PRN Patient became more lethargic with dyarthria, dysphagia, left facial droop and left side weakness that progressed to flacid Repeat MRI of the head showed : Findings compatible with the known recent right basal ganglia infarct. No new areas of infarction seen. No MR evidence of associated hemorrhage. He developed acute hypoxemic respiratory failure on 05/09 likely due to Aspiration PNA, was intubated and transferred to ICU. Now he is extubated 05/19 , on Venti mask saturating well , with respiratory secretions Neurologically he is awake and alert , follows commands, moving right side of his body and also now able to move LUE 4/5 and LLE 2/5 Note : Patient's next of kin is his daughter Catia ) . She has been informed in detail about patient's condition , findings, prognosis and plan of care during the hospitalization. They have been estranged for 30 years . Now that patient is awake , alert and oriented asked about who he wants top be his surrogate decision maker and patient wants his eldest sister Edvin to be his health care proxy. 1. Acute Respiratory failure with Hypoxia sec to Aspiration Pneumonia Patient was intubated for more than 10 days in ICU .He did develop total opacification of left lung 05/09 due to aspiration pneumonia since patient could not handle his secretions and copuld not protect his airway . Extubated 05/19 and doing well, maintaining his airway at present , saturating 100 % on Venti mask Patient is improving neurologically Sputum cultures positive for MRSA and Serratia Marcescen and patient is on meropenem and Vanco IV as per ID Afebrile WBC 12 K keep head of the bed elevated frequent suctioning and aspiration precautions will repeat CXR this AM No need for bronchoscopy and trache at present Pulmonary on consult 2. Acute Ischemic stroke - Right MCA distribution patient became lethargic with dysarthria, dysphagia, left facial droop and left side hemiparesis with stroke progression MRI of the head 04/28 : 1. Acute right MCA territory infarction involving the right narayanan radiata and basal ganglia. At present patient is improving neurologically , able to move LUE 4/5 , LLE 2/5 , awake, alert and oriented , following commands and responding questions appropriately will start PT , OT and speech eval Continue ASA UT , lovenox lasix and statin on hold until speech eval CTA neck showed no Blood clot , carotid doppler showed no stenosis Echo showed normal EF and wall motion Repeat CT head showed no hemorrhagic conversion EEG: No epileptiform activity Neuro on board following 3.ETOH withdrawal/ Delirium tremens-- resolved but now lethargic due to CVA patient was tachycardic, tremulous, confused with visual hallucinations on admission was initially Started on librium tapering dose-- discontinued due to sedation discussed with neurology who recommended to start patient on gabapentin and Seroquel HS that were discontinued due to lethargy Continue thiamine, folic acid, MVI IV Seizure precautions Ativan prn 4. HTN uncontrolled po meds on hold for now until swallow eval started hydralazine IV 5.Thrombocytopenia- improved most likely chronic secondary to ETOH abuse 6.Hypokalemia, replace with Kcl 7. Anemia of chronic disease Hgb 11 monitor 8. DVT PPx Lovenox
--- NOTE | 2017-05-20 08:53 | CP.CCUPN ---
CCU Subjective - Physician Review Subjective (Free Text): Extubated yesterday after 12 days on MV. Neuromental status improved, now moving left extremities, previously was hemiplegic on left, responds appropriately to simple questions. No distress since extubation, good cough reflex. No fever spikes over the last 1 week. Other vitals and I/Os reviewed. ROS: denies any new sympotoms and no other pertinent negs or positives on 10+ system review. PMSFH: All Nursing and physician documentation reviewed to date; no new pertinent info noted relevant to current medical problems. MAJOR PROBLEMS: 1. Acute Hypoxic Resp failure 2 pneumonia - Aspiration 2. Metabolic Encephalopathy 3. CVA-subacute 4. h/o ETOH Abuse PLAN: 1. Previous swallowing difficulties noted which culminated in PEG consideration. Given improvement in neuromental status, would repeat Dysphagia eval and re-assess for aspiration risk. Discussed with GI and PEG is on hold for now. 2. Repeat CT Brain on 05/11 showed no acute bleed. Antiplatelet therapy resumed on 05/13 with both ASA and Plavix, have now been placed on hold again from 05/17. Lovenox remains. Could resume anti-platelet meds again. 3. He is not tachycardic, but is hypertensive, would consider using another anti-HTN agent other than Clonidine given its [employer] depressant effects, unless it was originally used for its dual effect on BP control and mediation of withdrawal symptoms. 4. Seroquel use noted. 5. Noted MRSA and Serratia marcesens organisms isolated form sputum. On Nilson day # 11 and Vanco day #19. ID f/u on extent of further continuation or get Procalcitonin level. Todays CXR (my interp) still shows predominant VIKKI infiltrate. Chest CT 05/17 results reviewed. CCU Objective - Vital Signs / Intake & Output Vital Signs (Last 4 hours): Vital Signs Temp Pulse Resp BP Pulse Ox 05/20/17 08:00 98.0 F 79 26 H 163/88 H 100 05/20/17 06:00 97.7 F 73 24 147/82 100 Intake and Output (Last 8hrs): Intake & Output 05/19/17 05/20/17 05/20/17 22:59 06:59 14:59 Intake Total 410 660 Output Total 1800 2500 Balance -1390 -1840 Weight 141 lb 14.4 oz Intake: IV 160 560 Intake, Piggyback 250 100 Output: Urine 1800 2500 Urethral (Adame) 1800 2500 Other: # Bowel Movements 2 - Physical Exam Head: Positive for: Atraumatic, Normocephalic Pupils: Positive for: PERRL Extroacular Muscles: Positive for: EOMI Conjunctiva: Positive for: Normal Mouth: Positive for: Moist Mucous Membranes Neck: Negative for: JVD, Bruit Respiratory/Chest: Positive for: Decreased Breath Sounds (left), Rhonchi ( diffuse) Cardiovascular: Positive for: Regular Rate and Rhythm Abdomen: Positive for: Normal Bowel Sounds. Negative for: Tenderness, Distention Upper Extremity: Positive for: Edema, Capillary Refill < 2s, Other (spontaneous movement of right arm). Negative for: Cyanosis Lower Extremity: Positive for: Edema (Bilateral dependent +2 edema), NORMAL PULSES, Other (L side weakness noted, spontaneous movement of right leg). Negative for: CALF TENDERNESS, Cyanosis Neurological: Positive for: Other ((Left hemiplegia)) Skin: Positive for: Warm. Negative for: Rashes, Diaphoretic Psychiatric: Positive for: Alert - Medications Active Medications: Active Medications Generic Name Dose Route Start Last Admin Trade Name Freq PRN Reason Stop Dose Admin Acetaminophen 650 mg 04/27/17 03:51 05/15/17 13:46 Tylenol 325mg Tab PO 650 mg Q6 PRN Administration Pain, Mild (1-3) Acetaminophen 650 mg 05/09/17 12:30 05/11/17 04:50 Tylenol 650 Mg Supp DC 650 mg Q6 PRN Administration Fever >100.4 F Acetylcysteine 2 ml 05/19/17 20:00 05/20/17 07:32 Acetylcysteine 20% INH 2 ml RBID [facility] Administration Albuterol/Ipratropium 3 ml 05/04/17 20:00 05/20/17 07:32 Duoneb 3 Mg/0.5 Mg (3 Ml) Ud INH 3 ml RQID [facility] Administration Aspirin 81 mg 04/27/17 09:00 05/17/17 09:05 Aspirin Chewable PO Not Given DAILY [facility] Aspirin 300 mg 05/19/17 16:30 05/19/17 17:26 Aspirin Supp DC 300 mg DAILY [facility] Administration Atorvastatin Calcium 40 mg 04/27/17 09:00 05/19/17 08:28 Lipitor PO 40 mg DAILY [facility] Administration Clonidine HCl 0.1 mg 05/15/17 17:00 05/19/17 17:16 Catapres PO Not Given BID [facility] Clopidogrel Bisulfate 75 mg 05/11/17 17:18 05/17/17 09:10 Plavix PO Not Given DAILY [facility] Enalapril Maleate 10 mg 05/17/17 17:00 05/19/17 17:17 Vasotec PO Not Given BID [facility] Enoxaparin Sodium 40 mg 04/27/17 09:00 05/19/17 08:28 Lovenox SC 40 mg DAILY [facility] Administration Protocol Folic Acid 1 mg 04/27/17 15:15 05/19/17 08:28 Folic Acid PO 1 mg DAILY [facility] Administration Guaifenesin 100 mg 05/09/17 15:26 Robitussin PO Q6 PRN Cough Hydralazine HCl 10 mg 05/19/17 16:25 05/19/17 17:27 Apresoline IV 10 mg Q6 PRN Administration Systolic Blood Pressure Vancomycin HCl 1 gm/ Sodium 250 mls @ 166.667 mls/hr 05/04/17 21:00 05/19/17 21:00 Chloride IVPB 166.667 mls/hr Q12 [facility] Administration Meropenem 1 gm/ Sodium 100 mls @ 100 mls/hr 05/10/17 17:00 05/20/17 00:20 Chloride IVPB 100 mls/hr Q8 [facility] Administration Potassium Chloride 100 mls @ 100 mls/hr 05/20/17 06:00 05/20/17 06:21 Potassium Chloride 10 Meq/100 Ml IVPB 05/20/17 08:59 100 mls/hr Q1 [facility] Administration Lorazepam 1 mg 05/10/17 21:57 05/18/17 22:55 Ativan IVP 1 mg Q6 PRN Administration Agitation Morphine Sulfate 2 mg 05/17/17 23:36 05/19/17 18:20 Morphine IVP 2 mg Q6 PRN Administration Agitation Multivitamins/Vitamin C 5 ml 04/27/17 15:15 05/19/17 08:30 Multi-Delyn Liquid PO 5 ml DAILY [facility] Administration Pantoprazole Sodium 40 mg 05/10/17 09:00 05/19/17 08:31 Protonix Susp PO 40 mg DAILY [facility] Administration Quetiapine Fumarate 25 mg 04/28/17 22:00 05/03/17 22:55 Seroquel PO Not Given HS [facility] Thiamine HCl 100 mg 04/27/17 15:15 05/19/17 08:33 Vitamin B1 Tab PO 100 mg DAILY [facility] Administration - Patient Studies Lab Studies: Lab Studies 05/20/17 05/20/17 05/20/17 Range/Units 05:47 04:20 04:20 WBC 12.1 H (4.8-10.8) K/uL RBC 3.40 L (4.40-5.90) Mil/uL Hgb 11.2 L (12.0-18.0) g/dL Hct 34.3 L (35.0-51.0) % MCV 100.7 H (80.0-94.0) fl MCH 33.0 H (27.0-31.0) pg MCHC 32.7 L (33.0-37.0) g/dL RDW 13.9 (11.5-14.5) % Plt Count 135 (130-400) K/uL pCO2 43 (35-45) mm/Hg pO2 84 (80-100) mm/Hg HCO3 33.6 H (21-28) mmol/L ABG pH 7.52 H (7.35-7.45) ABG Total CO2 36.4 H (22-28) mmol/L ABG O2 Saturation 98.3 H (95-98) % ABG O2 Content 15.1 (15-23) ML/dL ABG Base Excess 11.1 H (-2.0-3.0) mmol/L ABG Hemoglobin 11.2 L (11.7-17.4) g/dL ABG Carboxyhemoglobin 1.3 (0.5-1.5) % POC ABG HHb (Measured) 1.6 (0.0-5.0) % ABG Methemoglobin 1.8 (0.0-3.0) % ABG O2 Capacity 15.4 L (16-24) mL/dL Carson Test Yes A-a O2 Difference 147.0 mm/Hg Hgb O2 Saturation 95.3 (95.0-98.0) % Vent Mode Aerosol mask FiO2 40.0 % Pressure Support CPAP Sodium 134 (132-148) mmol/l Potassium 3.1 L (3.6-5.0) MMOL/L Chloride 96 L (98-107) mmol/L Carbon Dioxide 33 H (22-30) mmol/L Anion Gap 8 L (10-20) BUN 4 L (9-20) mg/dl Creatinine 0.4 L (0.8-1.5) mg/dL Est GFR ( Amer) > 60 Est GFR (Non-Af Amer) > 60 Random Glucose 100 (75-110) mg/dL Calcium 8.9 (8.4-10.2) mg/dL 05/19/17 Range/Units 10:48 WBC (4.8-10.8) K/uL RBC (4.40-5.90) Mil/uL Hgb (12.0-18.0) g/dL Hct (35.0-51.0) % MCV (80.0-94.0) fl MCH (27.0-31.0) pg MCHC (33.0-37.0) g/dL RDW (11.5-14.5) % Plt Count (130-400) K/uL pCO2 43 (35-45) mm/Hg pO2 163 H (80-100) mm/Hg HCO3 32.2 H (21-28) mmol/L ABG pH 7.50 H (7.35-7.45) ABG Total CO2 34.8 H (22-28) mmol/L ABG O2 Saturation 99.1 H (95-98) % ABG O2 Content 15.6 (15-23) ML/dL ABG Base Excess 9.3 H (-2.0-3.0) mmol/L ABG Hemoglobin 11.2 L (11.7-17.4) g/dL ABG Carboxyhemoglobin 0.7 (0.5-1.5) % POC ABG HHb (Measured) 0.9 (0.0-5.0) % ABG Methemoglobin 1.7 (0.0-3.0) % ABG O2 Capacity 15.7 L (16-24) mL/dL Carson Test Yes A-a O2 Difference 68.0 mm/Hg Hgb O2 Saturation 96.6 (95.0-98.0) % Vent Mode Cpap FiO2 40.0 % Pressure Support 10 CPAP 5 Sodium (132-148) mmol/l Potassium (3.6-5.0) MMOL/L Chloride (98-107) mmol/L Carbon Dioxide (22-30) mmol/L Anion Gap (10-20) BUN (9-20) mg/dl Creatinine (0.8-1.5) mg/dL Est GFR ( Amer) Est GFR (Non-Af Amer) Random Glucose (75-110) mg/dL Calcium (8.4-10.2) mg/dL Laboratory Results - last 24 hr 05/19/17 05/20/17 05/20/17 10:48 04:20 04:20 WBC 12.1 H RBC 3.40 L Hgb 11.2 L Hct 34.3 L MCV 100.7 H MCH 33.0 H MCHC 32.7 L RDW 13.9 Plt Count 135 pCO2 43 pO2 163 H HCO3 32.2 H ABG pH 7.50 H ABG Total CO2 34.8 H ABG O2 Saturation 99.1 H ABG O2 Content 15.6 ABG Base Excess 9.3 H ABG Hemoglobin 11.2 L ABG Carboxyhemoglobin 0.7 POC ABG HHb (Measured) 0.9 ABG Methemoglobin 1.7 ABG O2 Capacity 15.7 L Carson Test Yes A-a O2 Difference 68.0 Hgb O2 Saturation 96.6 Vent Mode Cpap FiO2 40.0 Pressure Support 10 CPAP 5 Sodium 134 Potassium 3.1 L Chloride 96 L Carbon Dioxide 33 H Anion Gap 8 L BUN 4 L Creatinine 0.4 L Est GFR ( Amer) > 60 Est GFR (Non-Af Amer) > 60 Random Glucose 100 Calcium 8.9 05/20/17 05:47 WBC RBC Hgb Hct MCV MCH MCHC RDW Plt Count pCO2 43 pO2 84 HCO3 33.6 H ABG pH 7.52 H ABG Total CO2 36.4 H ABG O2 Saturation 98.3 H ABG O2 Content 15.1 ABG Base Excess 11.1 H ABG Hemoglobin 11.2 L ABG Carboxyhemoglobin 1.3 POC ABG HHb (Measured) 1.6 ABG Methemoglobin 1.8 ABG O2 Capacity 15.4 L Carson Test Yes A-a O2 Difference 147.0 Hgb O2 Saturation 95.3 Vent Mode Aerosol mask FiO2 40.0 Pressure Support CPAP Sodium Potassium Chloride Carbon Dioxide Anion Gap BUN Creatinine Est GFR ( Amer) Est GFR (Non-Af Amer) Random Glucose Calcium Review of Systems - Review of Systems All systems: reviewed and no additional remarkable complaints except (as above) Critical Care Progress Note - Extremities/Vascular Does the Patient have a Central Venous Catheter?: No Does the Patient need a Central Venous Catheter?: No Does the Patient have a Adame Catheter?: Yes Does the Patient need a Adame Catheter?: No - Prophylaxis GI Prophylaxis GI: PPI - Prophylaxis DVT Prophylaxis DVT: Lovenox - Nutrition Nutrition: Nutrition Category Date Time Status NPO Diet [DIET] Diets 05/20/17 Breakfast Active
[2017-05-20] MEDS: Enoxaparin 40 mg Syringe SC SCH (09:18)
--- NOTE | 2017-05-20 11:08 | RAD ---
PROCEDURE: CHEST RADIOGRAPH, 1 VIEW HISTORY: post extubation/ pneumonia COMPARISON: 05/19/2017 FINDINGS: There has been interval extubation and removal of the nasogastric tube. LUNGS: There is interval development of diffuse haziness in the left lung. There is low lung volume on the left with shift of mediastinal to the left. There are also increased interstitial markings on the left. The right lung is well inflated and clear. PLEURA: Suspect layering left pleural effusion. No pneumothorax or right pleural fluid seen. CARDIOVASCULAR: Normal. OSSEOUS STRUCTURES: No significant abnormalities. VISUALIZED UPPER ABDOMEN: Normal. OTHER FINDINGS: None. IMPRESSION: 1. Worsening airspace disease in the left lung could represent development of pulmonary edema, layering pleural effusion or pneumonia. Also noted is interstitial edema and pulmonary venous congestion. 2. Low lung volume on the left with shift of mediastinum to the left.
[2017-05-20] MEDS: THIAMINE IV SCH (12:11)
[2017-05-20] MEDS: [UNRECOGNIZED DRUG - OTHER] IV SCH (12:11)
[2017-05-20] MEDS: POTASSIUM CHL IV SCH (12:11)
[2017-05-20] MEDS: FOLIC ACID IV SCH (12:11)
[2017-05-20] MEDS: MULTIVITAMIN IV SCH (12:11)
--- NOTE | 2017-05-20 17:58 | CP.PCM.PN ---
Subjective - Date & Time of Evaluation Date of Evaluation: 05/20/17 Time of Evaluation: 14:20 - Subjective Subjective: F/U Respiratory failure. Awake , on nasal canula , follow simple commands Objective - Vital Signs/Intake and Output Vital Signs (last 24 hours): Temp Pulse Resp BP Pulse Ox 98.2 F 89 25 H 152/90 H 99 05/20/17 16:46 05/20/17 16:46 05/20/17 16:46 05/20/17 16:46 05/20/17 16:46 Intake and Output: 05/20/17 05/20/17 06:59 18:59 Intake Total 1070 1360 Output Total 4300 3100 Balance -2773 -1430 - Medications Medications: Current Medications Acetaminophen (Tylenol 650 Mg Supp) 650 mg NM Q6 PRN PRN Reason: Fever >100.4 F Last Admin: 05/11/17 04:50 Dose: 650 mg Acetylcysteine (Acetylcysteine 20%) 2 ml INH RBID [facility] Last Admin: 05/20/17 07:32 Dose: 2 ml Albuterol/Ipratropium (Duoneb 3 Mg/0.5 Mg (3 Ml) Ud) 3 ml INH RQID [facility] Last Admin: 05/20/17 15:38 Dose: 3 ml Aspirin (Aspirin Supp) 300 mg NM DAILY [facility] Last Admin: 05/20/17 09:24 Dose: 300 mg Atorvastatin Calcium (Lipitor) 40 mg PO DAILY [facility] Last Admin: 05/20/17 09:13 Dose: Not Given Clopidogrel Bisulfate (Plavix) 75 mg PO DAILY [facility] Last Admin: 05/20/17 09:14 Dose: Not Given Enoxaparin Sodium (Lovenox) 40 mg SC DAILY [facility] PRN Reason: Protocol Last Admin: 05/20/17 09:18 Dose: 40 mg Hydralazine HCl (Apresoline) 10 mg IV Q6 PRN PRN Reason: Systolic Blood Pressure Last Admin: 05/20/17 11:14 Dose: 10 mg Vancomycin HCl 1 gm/ Sodium (Chloride) 250 mls @ 166.667 mls/hr IVPB Q12 [facility] Last Admin: 05/20/17 09:23 Dose: 166.667 mls/hr Meropenem 1 gm/ Sodium (Chloride) 100 mls @ 100 mls/hr IVPB Q8 [facility] Last Admin: 05/20/17 16:18 Dose: 100 mls/hr Thiamine HCl 100 mg/ Folic Acid 1 mg/ Multivitamins/Vitamin C 10 ml/ Potassium Chloride/Dextrose/Sod Cl 1,011.2 mls @ 60 mls/hr IV .[id number] [facility] Stop: 05/21/17 09:02 Last Admin: 05/20/17 12:11 Dose: 60 mls/hr Lorazepam (Ativan) 1 mg IVP Q6 PRN PRN Reason: Agitation Last Admin: 05/20/17 13:29 Dose: 1 mg Morphine Sulfate (Morphine) 2 mg IVP Q6 PRN PRN Reason: Agitation Last Admin: 05/20/17 10:41 Dose: 2 mg Quetiapine Fumarate (Seroquel) 25 mg PO HS [facility] Last Admin: 05/03/17 22:55 Dose: Not Given - Labs Labs: 05/20/17 04:20 05/20/17 04:20 PT 13.8 Seconds (9.8-13.1) H 05/15/17 10:20 INR 1.3 (0.9-1.2) H 05/15/17 10:20 APTT 34.9 Seconds (25.6-37.1) 05/15/17 10:20 - Constitutional Appears: Chronically Ill - Head Exam Head Exam: NORMAL INSPECTION - Eye Exam Eye Exam: PERRL - ENT Exam ENT Exam: Normal Exam Additional comments: On ventimask - Respiratory Exam Respiratory Exam: Decreased Breath Sounds, Rhonchi (at bases) - Cardiovascular Exam Cardiovascular Exam: REGULAR RHYTHM - GI/Abdominal Exam GI & Abdominal Exam: Soft, Normal Bowel Sounds - Extremities Exam Extremities Exam: Normal Inspection - Back Exam Back Exam: NORMAL INSPECTION - Neurological Exam Neurological Exam: Alert, Awake Additional comments: Response to verbal and tactile stimuli, follows simple commands, L side weakness. - Psychiatric Exam Additional comments: Calm, agitated at times. - Skin Skin Exam: Normal Color, Warm Assessment and Plan (1) Acute respiratory failure Status: Acute (2) MRSA pneumonia Status: Acute (3) Acute right MCA stroke Status: Acute - Assessment and Plan (Free Text) Plan: Patient failed swallowing eval , to have Ba swallowing am ,continue DuoNeb , Mucomyst , Merren , Vanco , Pulmonary sport bed ICU Time: 38 min.
[2017-05-21] MEDS: Meropenem 1 GM in Sodium Chloride 0.9% 100 ML IVPB SCH ×3 (00:57→17:31)
[2017-05-21 04:47] LABS: HEMATOCRIT 35.4 % (35.0-51.0); MEAN CELL VOLUME 100.9 fl (80.0-94.0); MEAN CORPUSCULAR HEMOGLOBIN 33.2 pg (27.0-31.0); MEAN CORPUSCULAR HGB CONC 32.9 g/dL (33.0-37.0); RED CELL DISTRIBUTION WIDTH 13.8 % (11.5-14.5); WHITE BLOOD COUNT 10.4 K/uL (4.8-10.8)
[2017-05-21 05:00] LABS: BLOOD UREA NITROGEN 3 mg/dl (9-20); CALCIUM 8.8 mg/dL (8.4-10.2); CARBON DIOXIDE 34 mmol/L (22-30); CHLORIDE 95 mmol/L (98-107); GFR AFRICAN-AMERICAN > 60; GLUCOSE,RANDOM 90 mg/dL (75-110); POTASSIUM 3.1 MMOL/L (3.6-5.0); SODIUM 135 mmol/l (132-148)
[2017-05-21] MEDS: Potassium CL 10 MEQ/50 ML 50 ML IVPB SCH ×4 (06:12→09:21)
[2017-05-21] MEDS: [UNRECOGNIZED DRUG - OTHER] IV SCH (06:54)
[2017-05-21] MEDS: POTASSIUM CHL IV SCH (06:54)
[2017-05-21] MEDS: THIAMINE IV SCH (06:54)
[2017-05-21] MEDS: FOLIC ACID IV SCH (06:54)
[2017-05-21] MEDS: MULTIVITAMIN IV SCH (06:54)
--- NOTE | 2017-05-21 07:12 | CP.PCM.PN ---
Subjective - Date & Time of Evaluation Date of Evaluation: 05/21/17 Time of Evaluation: 08:00 - Subjective Subjective: Patient seen and examined bedside. Lying in bed in NAD. Lying in bed in NAD , hemodynamically stable , afebrile . No acute issues overnight Maintaining his airway with good saturation 100 % on 3 L O2 via NC Awake, alert and oriented , responding to questions appropriately , following commands. BP 145/88 HR 75 Moving his left side , LLE weaker compared to LUE WBC 10 Hgb 11.6 Plt 109 K 3.1 Objective - Vital Signs/Intake and Output Vital Signs (last 24 hours): Temp Pulse Resp BP Pulse Ox 97.8 F 60 20 144/75 100 05/21/17 04:00 05/21/17 06:00 05/21/17 06:00 05/21/17 06:00 05/21/17 06:00 Intake and Output: 05/21/17 05/21/17 06:59 18:59 Intake Total 890 Balance 890 - Medications Medications: Current Medications Acetaminophen (Tylenol 650 Mg Supp) 650 mg IA Q6 PRN PRN Reason: Fever >100.4 F Last Admin: 05/11/17 04:50 Dose: 650 mg Acetylcysteine (Acetylcysteine 20%) 2 ml INH RBID [facility] Last Admin: 05/20/17 19:50 Dose: 2 ml Albuterol/Ipratropium (Duoneb 3 Mg/0.5 Mg (3 Ml) Ud) 3 ml INH RQID [facility] Last Admin: 05/20/17 19:50 Dose: 3 ml Aspirin (Aspirin Supp) 300 mg IA DAILY [facility] Last Admin: 05/20/17 09:24 Dose: 300 mg Atorvastatin Calcium (Lipitor) 40 mg PO DAILY [facility] Last Admin: 05/20/17 09:13 Dose: Not Given Clopidogrel Bisulfate (Plavix) 75 mg PO DAILY [facility] Last Admin: 05/20/17 09:14 Dose: Not Given Enoxaparin Sodium (Lovenox) 40 mg SC DAILY [facility] PRN Reason: Protocol Last Admin: 05/20/17 09:18 Dose: 40 mg Hydralazine HCl (Apresoline) 10 mg IV Q6 PRN PRN Reason: Systolic Blood Pressure Last Admin: 05/20/17 11:14 Dose: 10 mg Vancomycin HCl 1 gm/ Sodium (Chloride) 250 mls @ 166.667 mls/hr IVPB Q12 [facility] Last Admin: 05/20/17 20:25 Dose: 166.667 mls/hr Meropenem 1 gm/ Sodium (Chloride) 100 mls @ 100 mls/hr IVPB Q8 [facility] Last Admin: 05/21/17 00:57 Dose: 100 mls/hr Thiamine HCl 100 mg/ Folic Acid 1 mg/ Multivitamins/Vitamin C 10 ml/ Potassium Chloride/Dextrose/Sod Cl 1,011.2 mls @ 60 mls/hr IV .[id number] [facility] Stop: 05/21/17 09:02 Last Admin: 05/21/17 06:54 Dose: Not Given Potassium Chloride (Potassium Cl 10meq/50ml Sterile Water) 50 mls @ 50 mls/hr IVPB Q1 [facility] Stop: 05/21/17 09:59 Last Admin: 05/21/17 06:53 Dose: 50 mls/hr Lorazepam (Ativan) 1 mg IVP Q6 PRN PRN Reason: Agitation Last Admin: 05/21/17 01:06 Dose: 1 mg Morphine Sulfate (Morphine) 2 mg IVP Q6 PRN PRN Reason: Agitation Last Admin: 05/20/17 10:41 Dose: 2 mg Quetiapine Fumarate (Seroquel) 25 mg PO HS [facility] Last Admin: 05/03/17 22:55 Dose: Not Given - Labs Labs: 05/21/17 04:10 05/21/17 04:10 PT 13.8 Seconds (9.8-13.1) H 05/15/17 10:20 INR 1.3 (0.9-1.2) H 05/15/17 10:20 APTT 34.9 Seconds (25.6-37.1) 05/15/17 10:20 - Constitutional Appears: Non-toxic, No Acute Distress, Chronically Ill - Head Exam Head Exam: ATRAUMATIC, NORMOCEPHALIC - Eye Exam Eye Exam: EOMI, PERRL Pupil Exam: NORMAL ACCOMODATION Additional comments: keeps right eye closed - ENT Exam ENT Exam: Mucous Membranes Dry, Normal Exam - Neck Exam Neck Exam: Normal Inspection - Respiratory Exam Respiratory Exam: NORMAL BREATHING PATTERN. absent: Rhonchi, Wheezes Additional comments: coarse breath sounds to right hemithorax - Cardiovascular Exam Cardiovascular Exam: REGULAR RHYTHM, RRR, +S1, +S2. absent: JVD - GI/Abdominal Exam GI & Abdominal Exam: Soft, Normal Bowel Sounds. absent: Distended, Tenderness, Rebound - Rectal Exam Rectal Exam: Deferred - Extremities Exam Extremities Exam: Full ROM, Normal Capillary Refill, Normal Inspection. absent : Calf Tenderness, Pedal Edema - Neurological Exam Neurological Exam: Alert, Awake Neuro motor strength exam: Left Upper Extremity: 4, Right Upper Extremity: 5, Left Lower Extremity: 2/1 Additional comments: oriented to place, person answering questions appropriately , following commands - Psychiatric Exam Psychiatric exam: Normal Affect - Skin Skin Exam: Dry, Intact, Normal Color, Warm Assessment and Plan - Assessment and Plan (Free Text) Assessment: 56 y/o homeless male with PMHx significant for HTN, anemia, and EtOH abuse presented to ER with multiple falls and minor head trauma. He stated that he had been feeling 'off balance' and falling more over the past several days. Denied any focal weakness, but felt like both his feet were numb (this is ongoing, not new) and also c/o back pain (also chronic); he also felt off balance more lately as well. Patient has history of chronic ETOH use . CT head in ER showed Multiple bilateral lacunar infarcts and severe cortical atrophy. Patient admitted in telemetry for close monitoring. MRI head showed acute right MCA stroke Patient started on ASa, lovenox and statin. Neurology and PT consulted He developed DT-s and was started on gabapentin 300 mg PO TID , Seroquel and Ativan PRN Patient became more lethargic with dyarthria, dysphagia, left facial droop and left side weakness that progressed to flacid Repeat MRI of the head showed : Findings compatible with the known recent right basal ganglia infarct. No new areas of infarction seen. No MR evidence of associated hemorrhage. He developed acute hypoxemic respiratory failure on 05/09 likely due to Aspiration PNA, was intubated and transferred to ICU. Now he is extubated 05/19 , on 3 L O2 via his NC saturating well , with respiratory secretions Neurologically he is awake and alert , follows commands, moving right side of his body and also now able to move LUE 4/5 and LLE 2/5 1. Acute Respiratory failure with Hypoxia sec to Aspiration Pneumonia Patient was intubated for more than 10 days in ICU .He did develop total opacification of left lung 05/09 due to aspiration pneumonia since patient could not handle his secretions and could not protect his airway . Extubated and doing well, maintaining his airway at present , saturating 100 % on 3 L O2 via NC Patient is improving neurologically Sputum cultures positive for MRSA and Serratia Marcescen and patient is on meropenem and Vanco IV as per ID Afebrile WBC 10 K keep head of the bed elevated frequent suctioning and aspiration precautions CXR showed improvement of left side infiltrates No need for bronchoscopy and trache at present Pulmonary on consult 2. Acute Ischemic stroke - Right MCA distribution patient became lethargic with dysarthria, dysphagia, left facial droop and left side hemiparesis with stroke progression MRI of the head 04/28 : 1. Acute right MCA territory infarction involving the right narayanan radiata and basal ganglia. At present patient is improving neurologically , able to move LUE 4/5 , LLE 2/5 , awake, alert and oriented , following commands and responding questions appropriately Started PT , OT and speech eval . Patient at present failed swallow eval. Will order video swallow eval. In emeantine will re insert NGT and resume plavix and Statin Continue ASA IA , lovenox CTA neck showed no Blood clot , carotid doppler showed no stenosis Echo showed normal EF and wall motion Repeat CT head showed no hemorrhagic conversion EEG: No epileptiform activity Neuro on board following 3.ETOH withdrawal/ Delirium tremens-- resolved but now lethargic due to CVA patient was tachycardic, tremulous, confused with visual hallucinations on admission was initially Started on librium tapering dose-- discontinued due to sedation discussed with neurology who recommended to start patient on gabapentin and Seroquel HS that were discontinued due to lethargy Continue thiamine, folic acid, MVI IV on IVF Seizure precautions Ativan prn 4. HTN uncontrolled po meds on hold for now until swallow eval started hydralazine IV 5.Thrombocytopenia most likely chronic secondary to ETOH abuse plt 109 K 6.Hypokalemia, replace with Kcl runs 7. Anemia of chronic disease Hgb 10 monitor 8. DVT PPx Lovenox
[2017-05-21] MEDS: Albuterol-Ipratrop 3 mg / 0.5 (3 ml) UD INH SCH ×4 (07:53→19:06)
[2017-05-21] MEDS: Acetylcysteine 20% Inhal Soln (4ml) INH SCH ×2 (07:53→19:06)
[2017-05-21] MEDS: Enoxaparin 40 mg Syringe SC SCH (08:13)
[2017-05-21] MEDS ORDERED: Chlorhexidine Gluconate 1 APPL/PKT TP ONE ×2 (08:25→09:03)
--- NOTE | 2017-05-21 10:36 | RAD ---
PROCEDURE: CHEST RADIOGRAPH, 1 VIEW, portable study 07:25. HISTORY: pneumonia COMPARISON: Multiple serial examinations preceding the most recent study: May 20, 2017. FINDINGS: LUNGS: Improving left upper lobe infiltrate/pneumonia. Hyperinflation right lung. PLEURA: No pneumothorax or pleural fluid seen. CARDIOVASCULAR: No radiographic findings to suggest acute or significant cardiovascular disease. OSSEOUS STRUCTURES: No significant abnormalities. VISUALIZED UPPER ABDOMEN: Normal. OTHER FINDINGS: None. IMPRESSION: Improving left upper lobe pneumonia.
--- NOTE | 2017-05-21 13:55 | CP.PCM.PN ---
Subjective - Date & Time of Evaluation Date of Evaluation: 05/21/17 Time of Evaluation: 13:45 - Subjective Subjective: Awake, follows simple commands , Patient states He wants to eat Objective - Vital Signs/Intake and Output Vital Signs (last 24 hours): Temp Pulse Resp BP Pulse Ox 97.8 F 78 23 159/94 H 97 05/21/17 12:54 05/21/17 12:54 05/21/17 12:54 05/21/17 12:54 05/21/17 12:54 Intake and Output: 05/21/17 05/21/17 06:59 18:59 Intake Total 890 740 Balance 890 740 - Medications Medications: Current Medications Acetaminophen (Tylenol 650 Mg Supp) 650 mg HI Q6 PRN PRN Reason: Fever >100.4 F Last Admin: 05/11/17 04:50 Dose: 650 mg Acetylcysteine (Acetylcysteine 20%) 2 ml INH RBID [facility] Last Admin: 05/21/17 07:53 Dose: 2 ml Albuterol/Ipratropium (Duoneb 3 Mg/0.5 Mg (3 Ml) Ud) 3 ml INH RQID [facility] Last Admin: 05/21/17 11:29 Dose: 3 ml Aspirin (Aspirin Supp) 300 mg HI DAILY [facility] Last Admin: 05/21/17 08:25 Dose: 300 mg Atorvastatin Calcium (Lipitor) 40 mg PO DAILY [facility] Clopidogrel Bisulfate (Plavix) 75 mg PO DAILY [facility] Enoxaparin Sodium (Lovenox) 40 mg SC DAILY [facility] PRN Reason: Protocol Last Admin: 05/21/17 08:13 Dose: 40 mg Hydralazine HCl (Apresoline) 10 mg IV Q6 PRN PRN Reason: Systolic Blood Pressure Last Admin: 05/20/17 11:14 Dose: 10 mg Vancomycin HCl 1 gm/ Sodium (Chloride) 250 mls @ 166.667 mls/hr IVPB Q12 [facility] Last Admin: 05/21/17 08:14 Dose: 166.667 mls/hr Meropenem 1 gm/ Sodium (Chloride) 100 mls @ 100 mls/hr IVPB Q8 [facility] Last Admin: 05/21/17 08:13 Dose: 100 mls/hr Lorazepam (Ativan) 1 mg IVP Q6 PRN PRN Reason: Agitation Last Admin: 05/21/17 01:06 Dose: 1 mg Morphine Sulfate (Morphine) 2 mg IVP Q6 PRN PRN Reason: Agitation Last Admin: 05/20/17 10:41 Dose: 2 mg Quetiapine Fumarate (Seroquel) 25 mg PO HS [facility] Last Admin: 05/03/17 22:55 Dose: Not Given - Labs Labs: 05/21/17 04:10 05/21/17 04:10 PT 13.8 Seconds (9.8-13.1) H 05/15/17 10:20 INR 1.3 (0.9-1.2) H 05/15/17 10:20 APTT 34.9 Seconds (25.6-37.1) 05/15/17 10:20 - Constitutional Appears: Chronically Ill - Eye Exam Eye Exam: PERRL - ENT Exam ENT Exam: Normal Oropharynx - Neck Exam Neck Exam: Normal Inspection - Respiratory Exam Respiratory Exam: Decreased Breath Sounds, Rhonchi - Cardiovascular Exam Cardiovascular Exam: REGULAR RHYTHM - GI/Abdominal Exam GI & Abdominal Exam: Soft, Normal Bowel Sounds - Extremities Exam Extremities Exam: Normal Inspection - Back Exam Back Exam: NORMAL INSPECTION - Neurological Exam Neurological Exam: Awake Additional comments: follows simple commands, L hemiparesia , generalized weakness - Skin Skin Exam: Warm Assessment and Plan (1) Acute respiratory failure Status: Acute (2) MRSA pneumonia Status: Acute (3) Acute right MCA stroke Status: Acute - Assessment and Plan (Free Text) Plan: CXR improved VIKKI PNA, continue DuoNeb , Mucomyst , Merren , Vanco , pulmonary sport bed , for PEG next Tuesday ICU Time: 36 min.
--- NOTE | 2017-05-21 20:12 | CP.PCM.CON ---
History of Present Illness - History of Present Illness History of Present Illness: lying in bed Past Patient History - Past Medical History & Family History Past Medical History?: Yes - Past Social History Smoking Status: Light Smoker < 10 Cigarettes Daily Alcohol: Occasional Drugs: Denies Home Situation {Lives}: Homeless - CARDIAC Hx Cardiac Disorders: Yes Hx Hypertension: Yes - PULMONARY Hx Respiratory Disorders: No Hx Tuberculosis: No - NEUROLOGICAL Hx Neurological Disorder: No HX Cerebrovascular Accident: No - HEENT Hx HEENT Problems: No - RENAL Hx Chronic Kidney Disease: No - ENDOCRINE/METABOLIC Hx Endocrine Disorders: No - HEMATOLOGICAL/ONCOLOGICAL Hx Blood Disorders: Yes Hx Anemia: Yes Hx Human Immunodeficiency Virus (HIV): No - INTEGUMENTARY Hx Dermatological Problems: No - MUSCULOSKELETAL/RHEUMATOLOGICAL Hx Musculoskeletal Disorders: Yes Hx Arthritis: Yes Hx Back Pain: Yes - GASTROINTESTINAL Hx Gastrointestinal Disorders: Yes Hx Colitis: Yes - GENITOURINARY/GYNECOLOGICAL Hx Genitourinary Disorders: No - PSYCHIATRIC Hx Psychophysiologic Disorder: No Hx Substance Use: No Other/Comment: ETOH abuse - SURGICAL HISTORY Hx Surgeries: Yes Other/Comment: hemmroids - ANESTHESIA Hx Anesthesia: Yes Hx Anesthesia Reactions: No Hx Malignant Hyperthermia: No Meds Allergies/Adverse Reactions: Allergies Allergy/AdvReac Type Severity Reaction Status Date / Time No Known Allergies Allergy Verified 04/26/17 23:00 - Medications Medications: Current Medications Acetaminophen (Tylenol 650 Mg Supp) 650 mg LA Q6 PRN PRN Reason: Fever >100.4 F Last Admin: 05/11/17 04:50 Dose: 650 mg Acetylcysteine (Acetylcysteine 20%) 2 ml INH RBID [facility] Last Admin: 05/21/17 19:06 Dose: 2 ml Albuterol/Ipratropium (Duoneb 3 Mg/0.5 Mg (3 Ml) Ud) 3 ml INH RQID [facility] Last Admin: 05/21/17 19:06 Dose: 3 ml Aspirin (Aspirin Supp) 300 mg LA DAILY [facility] Last Admin: 05/21/17 08:25 Dose: 300 mg Atorvastatin Calcium (Lipitor) 40 mg PO DAILY [facility] Clopidogrel Bisulfate (Plavix) 75 mg PO DAILY [facility] Enoxaparin Sodium (Lovenox) 40 mg SC DAILY [facility] PRN Reason: Protocol Last Admin: 05/21/17 08:13 Dose: 40 mg Hydralazine HCl (Apresoline) 10 mg IV Q6 PRN PRN Reason: Systolic Blood Pressure Last Admin: 05/20/17 11:14 Dose: 10 mg Vancomycin HCl 1 gm/ Sodium (Chloride) 250 mls @ 166.667 mls/hr IVPB Q12 [facility] Last Admin: 05/21/17 20:00 Dose: 166.667 mls/hr Meropenem 1 gm/ Sodium (Chloride) 100 mls @ 100 mls/hr IVPB Q8 [facility] Last Admin: 05/21/17 17:31 Dose: 100 mls/hr Lorazepam (Ativan) 1 mg IVP Q6 PRN PRN Reason: Agitation Last Admin: 05/21/17 01:06 Dose: 1 mg Morphine Sulfate (Morphine) 2 mg IVP Q6 PRN PRN Reason: Agitation Last Admin: 05/20/17 10:41 Dose: 2 mg Quetiapine Fumarate (Seroquel) 25 mg PO HS [facility] Last Admin: 05/03/17 22:55 Dose: Not Given Results - Vital Signs Recent Vital Signs: Last Vital Signs Temp 98.1 F 05/21/17 20:06 Pulse 86 05/21/17 20:06 Resp 27 H 05/21/17 20:06 BP 160/88 H 05/21/17 20:06 Pulse Ox 97 05/21/17 20:06 - Labs Result Diagrams: 05/21/17 04:10 05/21/17 04:10 Labs: Laboratory Results - last 24 hr 05/21/17 05/21/17 04:10 04:10 WBC 10.4 RBC 3.51 L Hgb 11.6 L Hct 35.4 MCV 100.9 H MCH 33.2 H MCHC 32.9 L RDW 13.8 Plt Count 109 L D Sodium 135 Potassium 3.1 L Chloride 95 L Carbon Dioxide 34 H Anion Gap 9 L BUN 3 L Creatinine 0.4 L Est GFR ( Amer) > 60 Est GFR (Non-Af Amer) > 60 Random Glucose 90 Calcium 8.8 Assessment & Plan - Assessment and Plan (Free Text) Assessment: Aspiration pneumonia MRSA positive screen and sputum Has had adequate duration of vancomycin therapy, can d/c vancomycin Continue Meropenem for 2 more days and d/c
[2017-05-21] MEDS: Potassium Ch 20mEq in D5-1/2NS 1,000 ML IV SCH (23:38)
[2017-05-22] MEDS: Meropenem 1 GM in Sodium Chloride 0.9% 100 ML IVPB SCH ×3 (00:43→17:42)
[2017-05-22] MEDS: Acetylcysteine 20% Inhal Soln (4ml) INH SCH ×2 (07:12→19:13)
[2017-05-22] MEDS: Albuterol-Ipratrop 3 mg / 0.5 (3 ml) UD INH SCH ×4 (07:12→19:13)
[2017-05-22 07:51] LABS: HEMATOCRIT 37.6 % (35.0-51.0); MEAN CELL VOLUME 98.8 fl (80.0-94.0); MEAN CORPUSCULAR HEMOGLOBIN 34.2 pg (27.0-31.0); MEAN CORPUSCULAR HGB CONC 34.6 g/dL (33.0-37.0); RED CELL DISTRIBUTION WIDTH 13.7 % (11.5-14.5); WHITE BLOOD COUNT 10.7 K/uL (4.8-10.8)
--- NOTE | 2017-05-22 08:31 | CP.PCM.PN ---
Subjective - Date & Time of Evaluation Date of Evaluation: 05/22/17 Time of Evaluation: 08:00 - Subjective Subjective: Patient seen and examined bedside. Lying in bed in NAD. Much more awake and alert , asking for a beer Hemodynamically stable , afebrile . No acute issues overnight With some confusion at times Maintaining his airway with good saturation 97 % in RA Responding to questions appropriately , following commands. BP 160/70 HR 57 , afebrile Moving both his upper extremities, unable to move LLE WBC 10 Hgb 13 Plt 110 BMP still pending Objective - Vital Signs/Intake and Output Vital Signs (last 24 hours): Temp Pulse Resp BP Pulse Ox 98.5 F 57 L 18 160/79 H 100 05/22/17 06:00 05/22/17 06:00 05/22/17 06:00 05/22/17 06:00 05/22/17 06:00 Intake and Output: 05/22/17 05/22/17 06:59 18:59 Intake Total 1075 Output Total 1050 Balance 25 - Medications Medications: Current Medications Acetaminophen (Tylenol 650 Mg Supp) 650 mg [place] Q6 PRN PRN Reason: Fever >100.4 F Last Admin: 05/11/17 04:50 Dose: 650 mg Acetylcysteine (Acetylcysteine 20%) 2 ml INH RBID [facility] Last Admin: 05/22/17 07:12 Dose: 2 ml Albuterol/Ipratropium (Duoneb 3 Mg/0.5 Mg (3 Ml) Ud) 3 ml INH RQID [facility] Last Admin: 05/22/17 07:12 Dose: 3 ml Aspirin (Aspirin Supp) 300 mg VA DAILY [facility] Last Admin: 05/21/17 08:25 Dose: 300 mg Atorvastatin Calcium (Lipitor) 40 mg PO DAILY [facility] Clopidogrel Bisulfate (Plavix) 75 mg PO DAILY [facility] Enoxaparin Sodium (Lovenox) 40 mg SC DAILY [facility] PRN Reason: Protocol Last Admin: 05/21/17 08:13 Dose: 40 mg Hydralazine HCl (Apresoline) 10 mg IV Q6 PRN PRN Reason: Systolic Blood Pressure Last Admin: 05/20/17 11:14 Dose: 10 mg Meropenem 1 gm/ Sodium (Chloride) 100 mls @ 100 mls/hr IVPB Q8 [facility] Last Admin: 05/22/17 00:43 Dose: 100 mls/hr Potassium Chloride/Dextrose/Sod Cl (Potassium Chl 20 Meq In D5-1/2ns) 1,000 mls @ 100 mls/hr IV .Q10H [facility] Stop: 05/22/17 22:41 Last Admin: 05/21/17 23:38 Dose: 100 mls/hr Lorazepam (Ativan) 1 mg IVP Q6 PRN PRN Reason: Agitation Last Admin: 05/21/17 01:06 Dose: 1 mg Morphine Sulfate (Morphine) 2 mg IVP Q6 PRN PRN Reason: Agitation Last Admin: 05/20/17 10:41 Dose: 2 mg Quetiapine Fumarate (Seroquel) 25 mg PO HS [facility] Last Admin: 05/03/17 22:55 Dose: Not Given - Labs Labs: 05/22/17 07:30 05/21/17 04:10 PT 13.8 Seconds (9.8-13.1) H 05/15/17 10:20 INR 1.3 (0.9-1.2) H 05/15/17 10:20 APTT 34.9 Seconds (25.6-37.1) 05/15/17 10:20 - Constitutional Appears: Non-toxic, No Acute Distress, Older Than Stated Age, Cachectic, Chronically Ill - Head Exam Head Exam: ATRAUMATIC, NORMAL INSPECTION, NORMOCEPHALIC - Eye Exam Eye Exam: EOMI, Normal appearance, PERRL Pupil Exam: NORMAL ACCOMODATION - ENT Exam ENT Exam: Mucous Membranes Dry, Normal Exam - Neck Exam Neck Exam: Full ROM, Normal Inspection - Respiratory Exam Respiratory Exam: Clear to Ausculation Bilateral, NORMAL BREATHING PATTERN. absent: Accessory Muscle Use, Rales, Rhonchi, Wheezes, Respiratory Distress - Cardiovascular Exam Cardiovascular Exam: REGULAR RHYTHM, RRR, +S1, +S2. absent: JVD - GI/Abdominal Exam GI & Abdominal Exam: Soft, Normal Bowel Sounds. absent: Distended, Guarding, Tenderness, Rebound - Rectal Exam Rectal Exam: Deferred - Extremities Exam Extremities Exam: Full ROM, Normal Capillary Refill, Normal Inspection. absent : Calf Tenderness, Pedal Edema - Neurological Exam Neurological Exam: Alert, Awake Additional comments: left facial droop LUE 4/5 power LLE 1/5 follow s commands answering questions with on and off confusion, reaching out for things - Psychiatric Exam Psychiatric exam: Normal Affect - Skin Skin Exam: Dry, Intact, Normal Color, Warm Assessment and Plan - Assessment and Plan (Free Text) Assessment: 56 y/o homeless male with PMHx significant for HTN, anemia, and EtOH abuse presented to ER with multiple falls and minor head trauma. He stated that he had been feeling 'off balance' and falling more over the past several days. Denied any focal weakness, but felt like both his feet were numb (this is ongoing, not new) and also c/o back pain (also chronic); he also felt off balance more lately as well. Patient has history of chronic ETOH use . CT head in ER showed Multiple bilateral lacunar infarcts and severe cortical atrophy. Patient admitted in telemetry for close monitoring. MRI head showed acute right MCA stroke Patient started on ASa, lovenox and statin. Neurology and PT consulted He developed DT-s and was started on gabapentin 300 mg PO TID , Seroquel and Ativan PRN Patient became more lethargic with dyarthria, dysphagia, left facial droop and left side weakness that progressed to flacid Repeat MRI of the head showed : Findings compatible with the known recent right basal ganglia infarct. No new areas of infarction seen. No MR evidence of associated hemorrhage. He developed acute hypoxemic respiratory failure on 05/09 likely due to Aspiration PNA, was intubated and transferred to ICU. Now he is extubated since 05/19 , saturating 97 % in RA, maintaining his airway Neurologically much better ,he is awake and alert , follows commands, moving right side of his body and also now able to move LUE 4/5 and LLE 1/5 1. Acute Respiratory failure with Hypoxia sec to Aspiration Pneumonia Patient was intubated for more than 10 days in ICU .He did develop total opacification of left lung 05/09 due to aspiration pneumonia since patient could not handle his secretions and could not protect his airway . Extubated and doing well, maintaining his airway at present , saturating 100 % on 3 L O2 via NC Patient is improving neurologically Sputum cultures positive for MRSA and Serratia Marcescen and patient on meropenem and Vanco IV as per ID Afebrile WBC 10 K keep head of the bed elevated frequent suctioning and aspiration precautions CXR showed improvement of left side infiltrates No need for bronchoscopy and trache at present Pulmonary on consult Will continue Meropenem 2 more days . D/c Vancomycin as per ID 2. Acute Ischemic stroke - Right MCA distribution patient became lethargic with dysarthria, dysphagia, left facial droop and left side hemiparesis with stroke progression MRI of the head 04/28 : 1. Acute right MCA territory infarction involving the right narayanan radiata and basal ganglia. At present neurologically much improved,awake. alert with some confusion on and off, maintaining his airway , able to move LUE 4/5 , LLE 1/5, awake, alert and oriented , following commands and responding questions appropriately Started PT , OT and speech eval . Will need speech eval bedside today video swallow eval is ordered Refused NGT placement so plavix and Statin on hold Continue ASA VA , lovenox CTA neck showed no Blood clot , carotid doppler showed no stenosis Echo showed normal EF and wall motion Repeat CT head showed no hemorrhagic conversion EEG: No epileptiform activity Neuro on board following 3.ETOH withdrawal/ Delirium tremens-- resolved but now lethargic due to CVA patient was tachycardic, tremulous, confused with visual hallucinations on admission was initially Started on librium tapering dose-- discontinued due to sedation discussed with neurology who recommended to start patient on gabapentin and Seroquel HS that were discontinued due to lethargy Continue thiamine, folic acid, MVI IV on IVF Seizure precautions Ativan prn 4. HTN uncontrolled po meds on hold for now until swallow eval started hydralazine IV 5.Thrombocytopenia most likely chronic secondary to ETOH abuse plt 110 K 6.Hypokalemia, replace with Kcl runs 7. Anemia of chronic disease Hgb 13 monitor 8. DVT PPx Lovenox
[2017-05-22 08:44] LABS: BLOOD UREA NITROGEN 3 mg/dl (9-20); CALCIUM 9.4 mg/dL (8.4-10.2); CARBON DIOXIDE 29 mmol/L (22-30); CHLORIDE 97 mmol/L (98-107); GFR AFRICAN-AMERICAN > 60; GLUCOSE,RANDOM 95 mg/dL (75-110); POTASSIUM 4.5 MMOL/L (3.6-5.0); SODIUM 137 mmol/l (132-148)
[2017-05-22] MEDS: Enoxaparin 40 mg Syringe SC SCH (09:04)
--- NOTE | 2017-05-22 13:43 | CP.PCM.PN ---
Subjective - Date & Time of Evaluation Date of Evaluation: 05/22/17 Time of Evaluation: 13:10 - Subjective Subjective: F/U Respiratory failure. Pt awake, follows commands, no A/D, off NC, O2 Pulse Ox. 98 %, VS stable. Objective - Vital Signs/Intake and Output Vital Signs (last 24 hours): Temp Pulse Resp BP Pulse Ox 98.0 F 63 19 137/78 98 05/22/17 12:29 05/22/17 12:29 05/22/17 12:29 05/22/17 12:29 05/22/17 12:29 Intake and Output: 05/22/17 05/22/17 06:59 18:59 Intake Total 1075 Output Total 1050 Balance 25 - Medications Medications: Current Medications Acetaminophen (Tylenol 650 Mg Supp) 650 mg [place] Q6 PRN PRN Reason: Fever >100.4 F Last Admin: 05/11/17 04:50 Dose: 650 mg Acetylcysteine (Acetylcysteine 20%) 2 ml INH RBID [facility] Last Admin: 05/22/17 07:12 Dose: 2 ml Albuterol/Ipratropium (Duoneb 3 Mg/0.5 Mg (3 Ml) Ud) 3 ml INH RQID [facility] Last Admin: 05/22/17 11:12 Dose: 3 ml Aspirin (Aspirin Supp) 300 mg [place] DAILY [facility] Last Admin: 05/22/17 09:04 Dose: 300 mg Atorvastatin Calcium (Lipitor) 40 mg PO DAILY [facility] Last Admin: 05/22/17 09:00 Dose: Not Given Clopidogrel Bisulfate (Plavix) 75 mg PO DAILY [facility] Last Admin: 05/22/17 09:02 Dose: Not Given Enoxaparin Sodium (Lovenox) 40 mg SC DAILY [facility] PRN Reason: Protocol Last Admin: 05/22/17 09:04 Dose: 40 mg Hydralazine HCl (Apresoline) 10 mg IV Q6 PRN PRN Reason: Systolic Blood Pressure Last Admin: 05/20/17 11:14 Dose: 10 mg Meropenem 1 gm/ Sodium (Chloride) 100 mls @ 100 mls/hr IVPB Q8 [facility] Last Admin: 05/22/17 09:04 Dose: 100 mls/hr Potassium Chloride/Dextrose/Sod Cl (Potassium Chl 20 Meq In D5-1/2ns) 1,000 mls @ 100 mls/hr IV .Q10H [facility] Stop: 05/22/17 22:41 Last Admin: 05/21/17 23:38 Dose: 100 mls/hr Lorazepam (Ativan) 1 mg IVP Q6 PRN PRN Reason: Agitation Last Admin: 05/21/17 01:06 Dose: 1 mg Morphine Sulfate (Morphine) 2 mg IVP Q6 PRN PRN Reason: Agitation Last Admin: 05/20/17 10:41 Dose: 2 mg Quetiapine Fumarate (Seroquel) 25 mg PO HS [facility] Last Admin: 05/03/17 22:55 Dose: Not Given - Labs Labs: 05/22/17 07:30 05/22/17 08:15 PT 13.8 Seconds (9.8-13.1) H 05/15/17 10:20 INR 1.3 (0.9-1.2) H 05/15/17 10:20 APTT 34.9 Seconds (25.6-37.1) 05/15/17 10:20 - Constitutional Appears: Chronically Ill - Head Exam Head Exam: NORMAL INSPECTION - Eye Exam Eye Exam: PERRL - ENT Exam ENT Exam: Normal Exam - Neck Exam Neck Exam: Normal Inspection - Respiratory Exam Respiratory Exam: Decreased Breath Sounds, Rhonchi (few at bases) - Cardiovascular Exam Cardiovascular Exam: REGULAR RHYTHM - GI/Abdominal Exam GI & Abdominal Exam: Soft, Normal Bowel Sounds - Extremities Exam Additional comments: Edema upper extremities, spontaneous movements RUE and RLE. - Back Exam Back Exam: NORMAL INSPECTION - Neurological Exam Neurological Exam: Alert, Awake Additional comments: Response to tactile and verbal stimuli, follows simple commands, L Hemiplegia. - Psychiatric Exam Additional comments: Calm. - Skin Skin Exam: Warm Assessment and Plan (1) Acute respiratory failure Status: Acute (2) MRSA pneumonia Status: Acute (3) Acute right MCA stroke Status: Acute - Assessment and Plan (Free Text) Plan: Continue Merren, Duoneb and rest of Tx. ICU Time: 40 min.
[2017-05-22] MEDS: Potassium Ch 20mEq in D5-1/2NS 1,000 ML IV SCH (14:11)
[2017-05-22] MEDS ORDERED: Potassium Ch 20mEq in D5-1/2NS 1,000 ML IV SCH (22:30)
[2017-05-23] MEDS: Meropenem 1 GM in Sodium Chloride 0.9% 100 ML IVPB SCH ×3 (00:19→16:24)
[2017-05-23 05:23] LABS: MEAN CELL VOLUME 99.5 fl (80.0-94.0); MEAN CORPUSCULAR HGB CONC 34.2 g/dL (33.0-37.0); RED CELL DISTRIBUTION WIDTH 13.9 % (11.5-14.5); WHITE BLOOD COUNT 9.4 K/uL (4.8-10.8)
[2017-05-23 05:28] LABS: CALCIUM 9.6 mg/dL (8.4-10.2); CARBON DIOXIDE 28 mmol/L (22-30); CHLORIDE 97 mmol/L (98-107); GFR AFRICAN-AMERICAN > 60; GLUCOSE,RANDOM 100 mg/dL (75-110); POTASSIUM 3.2 MMOL/L (3.6-5.0); SODIUM 136 mmol/l (132-148)
[2017-05-23 05:37] LABS: BLOOD UREA NITROGEN 2 mg/dl (9-20)
[2017-05-23] MEDS: Acetylcysteine 20% Inhal Soln (4ml) INH SCH ×2 (08:09→19:07)
[2017-05-23] MEDS: Albuterol-Ipratrop 3 mg / 0.5 (3 ml) UD INH SCH ×4 (08:09→19:07)
[2017-05-23] MEDS: Enoxaparin 40 mg Syringe SC SCH (09:03)
[2017-05-23] MEDS: KCL 40MEQ/NS 1L 1,000 ML IV SCH ×2 (10:03→20:29)
--- NOTE | 2017-05-23 11:21 | CP.CCUPN ---
CCU Subjective - Physician Review Subjective (Free Text): Extubated 4 days ago after being on MV for 12 days. Intermittently agitated and getting Morphine, but has not been given any Ativan for anxiolysis. Does not appear to be in any ETOH withdrawal now. No s/sx of catecholamine excess evident now. Afebrile, no fever spikes for over a week. He denies any new weakness, moving left side with some weakness but no worse; denies any headaches , dizziness, nausea, abd discomfort, no CP or SOB. Other vitals and I/Os reviewed. ROS: denies any new symptoms and no other pertinent negs or positives on 10+ system review. PMSFH: All Nursing and physician documentation reviewed to date; no new pertinent info noted relevant to current medical problems. MAJOR PROBLEMS: 1. Acute Hypoxic Resp failure 2 pneumonia - Aspiration 2. Metabolic Encephalopathy 3. CVA-subacute 4. h/o ETOH Abuse PLAN: 1. Previous swallowing difficulties noted which culminated in PEG consideration. Given improvement in neuromental status, repeat Dysphagia eval done to re-assess for aspiration risk. For video swallow test today. Discussed with GI and PEG is on hold for now. 2. Antiplatelet therapy resumed. 3. Stable, awaiting stepdown bed. CCU Objective - Vital Signs / Intake & Output Vital Signs (Last 4 hours): Vital Signs Temp Pulse Resp BP Pulse Ox 05/23/17 08:19 98.2 F 98 H 17 140/89 100 05/23/17 08:00 98.2 F 75 15 143/89 92 L Intake and Output (Last 8hrs): Intake & Output 05/22/17 05/23/17 05/23/17 22:59 06:59 14:59 Intake Total 550 800 500 Output Total 300 850 Balance 250 800 -350 Weight 125 lb Intake: IV 550 800 500 Oral 0 0 Output: Urine 300 850 Condom 300 850 Stool 0 0 Emesis 0 - Physical Exam Head: Positive for: Atraumatic, Normocephalic Pupils: Positive for: PERRL Extroacular Muscles: Positive for: EOMI Conjunctiva: Positive for: Normal Mouth: Positive for: Moist Mucous Membranes Neck: Negative for: JVD, Bruit Respiratory/Chest: Positive for: Decreased Breath Sounds (left), Rhonchi ( diffuse) Cardiovascular: Positive for: Regular Rate and Rhythm Abdomen: Positive for: Normal Bowel Sounds. Negative for: Tenderness, Distention Upper Extremity: Positive for: Edema, Capillary Refill < 2s, Other (spontaneous movement of right arm). Negative for: Cyanosis Lower Extremity: Positive for: Edema (Bilateral dependent +2 edema), NORMAL PULSES, Other (L side weakness noted, spontaneous movement of right leg). Negative for: CALF TENDERNESS, Cyanosis Neurological: Positive for: Other ((Left hemiplegia)) Skin: Positive for: Warm. Negative for: Rashes, Diaphoretic Psychiatric: Positive for: Alert - Medications Active Medications: Active Medications Generic Name Dose Route Start Last Admin Trade Name Freq PRN Reason Stop Dose Admin Acetaminophen 650 mg 05/09/17 12:30 05/11/17 04:50 Tylenol 650 Mg Supp SC 650 mg Q6 PRN Administration Fever >100.4 F Acetylcysteine 2 ml 05/19/17 20:00 05/23/17 08:09 Acetylcysteine 20% INH 2 ml RBID [facility] Administration Albuterol/Ipratropium 3 ml 05/04/17 20:00 05/23/17 11:09 Duoneb 3 Mg/0.5 Mg (3 Ml) Ud INH 3 ml RQID [facility] Administration Aspirin 300 mg 05/19/17 16:30 05/23/17 09:04 Aspirin Supp SC 300 mg DAILY [facility] Administration Atorvastatin Calcium 40 mg 05/21/17 10:20 05/23/17 08:59 Lipitor PO Not Given DAILY [facility] Clopidogrel Bisulfate 75 mg 05/21/17 10:20 05/23/17 09:00 Plavix PO Not Given DAILY [facility] Enoxaparin Sodium 40 mg 04/27/17 09:00 05/23/17 09:03 Lovenox SC 40 mg DAILY [facility] Administration Protocol Hydralazine HCl 10 mg 05/19/17 16:25 05/22/17 16:44 Apresoline IV 10 mg Q6 PRN Administration Systolic Blood Pressure Meropenem 1 gm/ Sodium 100 mls @ 100 mls/hr 05/10/17 17:00 05/23/17 09:02 Chloride IVPB 100 mls/hr Q8 [facility] Administration Oral Electrolytes 1,000 mls @ 100 mls/hr 05/23/17 08:15 05/23/17 10:03 Kcl 40meq/ 0.9% 1l IV 05/24/17 08:02 100 mls/hr .Q10H [facility] Administration Lorazepam 1 mg 05/10/17 21:57 05/21/17 01:06 Ativan IVP 1 mg Q6 PRN Administration Agitation Morphine Sulfate 2 mg 05/17/17 23:36 05/23/17 09:29 Morphine IVP 2 mg Q6 PRN Administration Agitation Pantoprazole Sodium 40 mg 05/23/17 10:30 Protonix Inj IVP DAILY [facility] Quetiapine Fumarate 25 mg 04/28/17 22:00 05/03/17 22:55 Seroquel PO Not Given HS [facility] - Patient Studies Lab Studies: Lab Studies 05/23/17 05/23/17 Range/Units 04:30 04:30 WBC 9.4 (4.8-10.8) K/uL RBC 4.02 L (4.40-5.90) Mil/uL Hgb 13.7 (12.0-18.0) g/dL Hct 40.0 (35.0-51.0) % MCV 99.5 H (80.0-94.0) fl MCH 34.0 H (27.0-31.0) pg MCHC 34.2 (33.0-37.0) g/dL RDW 13.9 (11.5-14.5) % Plt Count 122 L (130-400) K/uL Sodium 136 (132-148) mmol/l Potassium 3.2 L (3.6-5.0) MMOL/L Chloride 97 L (98-107) mmol/L Carbon Dioxide 28 (22-30) mmol/L Anion Gap 14 (10-20) BUN 2 L (9-20) mg/dl Creatinine 0.4 L (0.8-1.5) mg/dL Est GFR ( Amer) > 60 Est GFR (Non-Af Amer) > 60 Random Glucose 100 (75-110) mg/dL Calcium 9.6 (8.4-10.2) mg/dL Laboratory Results - last 24 hr 05/23/17 05/23/17 04:30 04:30 WBC 9.4 RBC 4.02 L Hgb 13.7 Hct 40.0 MCV 99.5 H MCH 34.0 H MCHC 34.2 RDW 13.9 Plt Count 122 L Sodium 136 Potassium 3.2 L Chloride 97 L Carbon Dioxide 28 Anion Gap 14 BUN 2 L Creatinine 0.4 L Est GFR ( Amer) > 60 Est GFR (Non-Af Amer) > 60 Random Glucose 100 Calcium 9.6 Review of Systems - Review of Systems All systems: reviewed and no additional remarkable complaints except (as above) Critical Care Progress Note - Nutrition Nutrition: Nutrition Category Date Time Status NPO Diet [DIET] Diets 05/20/17 Breakfast Active
--- NOTE | 2017-05-23 11:33 | CP.PCM.PN ---
Subjective - Date & Time of Evaluation Date of Evaluation: 05/23/17 Time of Evaluation: 11:00 - Subjective Subjective: No fever Saturating well on NC Pt verbalized to RN that he wants to hurt himself when I asked him, pt did not answer denies CP no SOB no abd pain follows simple commands Discussed treatment plan with pt Objective - Vital Signs/Intake and Output Vital Signs (last 24 hours): Temp Pulse Resp BP Pulse Ox 98.2 F 98 H 17 140/89 100 05/23/17 08:19 05/23/17 08:19 05/23/17 08:19 05/23/17 08:19 05/23/17 08:19 Intake and Output: 05/23/17 05/23/17 06:59 18:59 Intake Total 1200 500 Output Total 850 Balance 1200 -350 - Medications Medications: Current Medications Acetaminophen (Tylenol 650 Mg Supp) 650 mg [place] Q6 PRN PRN Reason: Fever >100.4 F Last Admin: 05/11/17 04:50 Dose: 650 mg Acetylcysteine (Acetylcysteine 20%) 2 ml INH RBID [facility] Last Admin: 05/23/17 08:09 Dose: 2 ml Albuterol/Ipratropium (Duoneb 3 Mg/0.5 Mg (3 Ml) Ud) 3 ml INH RQID [facility] Last Admin: 05/23/17 11:09 Dose: 3 ml Aspirin (Aspirin Supp) 300 mg OH DAILY [facility] Last Admin: 05/23/17 09:04 Dose: 300 mg Atorvastatin Calcium (Lipitor) 40 mg PO DAILY [facility] Last Admin: 05/23/17 08:59 Dose: Not Given Clopidogrel Bisulfate (Plavix) 75 mg PO DAILY [facility] Last Admin: 05/23/17 09:00 Dose: Not Given Enoxaparin Sodium (Lovenox) 40 mg SC DAILY [facility] PRN Reason: Protocol Last Admin: 05/23/17 09:03 Dose: 40 mg Hydralazine HCl (Apresoline) 10 mg IV Q6 PRN PRN Reason: Systolic Blood Pressure Last Admin: 05/22/17 16:44 Dose: 10 mg Meropenem 1 gm/ Sodium (Chloride) 100 mls @ 100 mls/hr IVPB Q8 [facility] Last Admin: 05/23/17 09:02 Dose: 100 mls/hr Oral Electrolytes (Kcl 40meq/ 0.9% 1l) 1,000 mls @ 100 mls/hr IV .Q10H [facility] Stop: 05/24/17 08:02 Last Admin: 05/23/17 10:03 Dose: 100 mls/hr Lorazepam (Ativan) 1 mg IVP Q6 PRN PRN Reason: Agitation Last Admin: 05/21/17 01:06 Dose: 1 mg Morphine Sulfate (Morphine) 2 mg IVP Q6 PRN PRN Reason: Agitation Last Admin: 05/23/17 09:29 Dose: 2 mg Pantoprazole Sodium (Protonix Inj) 40 mg IVP DAILY [facility] Quetiapine Fumarate (Seroquel) 25 mg PO HS [facility] Last Admin: 05/03/17 22:55 Dose: Not Given - Labs Labs: 05/23/17 04:30 05/23/17 04:30 PT 13.8 Seconds (9.8-13.1) H 05/15/17 10:20 INR 1.3 (0.9-1.2) H 05/15/17 10:20 APTT 34.9 Seconds (25.6-37.1) 05/15/17 10:20 - Constitutional Appears: Unkempt, Older Than Stated Age, Cachectic, Chronically Ill Not in distress - Head Exam Head Exam: NORMAL INSPECTION, NORMOCEPHALIC - Eye Exam Eye Exam: EOMI, Normal appearance Pupil Exam: NORMAL ACCOMODATION - ENT Exam ENT Exam: Mucous Membranes Dry, Normal External Ear Exam - Neck Exam Neck Exam: Full ROM. absent: Meningismus - Respiratory Exam Respiratory Exam: Rales, Rhonchi. absent: Wheezes - Cardiovascular Exam Cardiovascular Exam: REGULAR RHYTHM, +S1, +S2 - GI/Abdominal Exam GI & Abdominal Exam: Soft, Normal Bowel Sounds. absent: Tenderness - Extremities Exam Extremities Exam: Normal Capillary Refill. absent: Calf Tenderness, Pedal Edema - Neurological Exam Neurological Exam: Alert, Awake Additional comments: oriented to person moves RUE and RLE 5/5 noted to be able to move LUE with gravity though weaker than R 4/5 moved LLE but not against gravity 1/5 - Psychiatric Exam Psychiatric exam: Flat Affect - Skin Skin Exam: Dry, Normal Color, Warm Assessment and Plan - Assessment and Plan (Free Text) Assessment: 56 y/o homeless male with PMHx significant for HTN, anemia, and EtOH abuse presented to ER with multiple falls and minor head trauma. He stated that he had been feeling 'off balance' and falling more over the past several days. Denied any focal weakness, but felt like both his feet were numb (this is ongoing, not new) and also c/o back pain (also chronic); he also felt off balance more lately as well. Patient has history of chronic ETOH use . CT head in ER showed Multiple bilateral lacunar infarcts and severe cortical atrophy. Patient admitted in telemetry for close monitoring. MRI head showed acute right MCA stroke Patient started on ASa, lovenox and statin. Neurology and PT consulted He developed DT-s and was started on gabapentin 300 mg PO TID , Seroquel and Ativan PRN Patient became more lethargic with dyarthria, dysphagia, left facial droop and left side weakness that progressed to flacid Repeat MRI of the head showed : Findings compatible with the known recent right basal ganglia infarct. No new areas of infarction seen. No MR evidence of associated hemorrhage. He developed acute hypoxemic respiratory failure on 05/09 likely due to Aspiration PNA, was intubated and transferred to ICU. Now he is extubated since 05/19 , saturating 97 % in RA, maintaining his airway Neurologically much better ,he is awake and alert , follows commands, moving right side of his body and also now able to move LUE 4/5 and LLE 1/5. Failed Modofied Barium Swallow study. 1. Acute Respiratory failure with Hypoxia sec to Aspiration Pneumonia Patient was intubated for more than 10 days in ICU .He did develop total opacification of left lung 05/09 due to aspiration pneumonia since patient could not handle his secretions and could not protect his airway . Extubated and doing well, maintaining his airway at present , saturating 100 % on 3 L O2 via NC Patient is improving neurologically Sputum cultures positive for MRSA and Serratia Marcescen and patient started on meropenem and Vanco IV as per ID Afebrile WBC 10 K keep head of the bed elevated frequent suctioning and aspiration precautions CXR showed improvement of left side infiltrates No need for bronchoscopy and trache at present Pulmonary on consult Completed IV vanco and Meropenem today 2. Acute Ischemic stroke - Right MCA distribution patient became lethargic with dysarthria, dysphagia, left facial droop and left side hemiparesis with stroke progression MRI of the head 04/28 : 1. Acute right MCA territory infarction involving the right narayanan radiata and basal ganglia. At present neurologically much improved,awake. alert with some confusion on and off, maintaining his airway , able to move LUE 4/5 , LLE 1/5, awake, alert and oriented , following commands and responding questions appropriately Started PT , OT and speech eval . Will need speech eval bedside today video swallow eval is ordered Refused NGT placement so plavix and Statin on hold Continue ASA OH , lovenox CTA neck showed no Blood clot , carotid doppler showed no stenosis Echo showed normal EF and wall motion Repeat CT head showed no hemorrhagic conversion EEG: No epileptiform activity Neuro on board following 3.ETOH withdrawal/ Delirium tremens-- resolved but now lethargic due to CVA patient was tachycardic, tremulous, confused with visual hallucinations on admission was initially Started on librium tapering dose-- discontinued due to sedation discussed with neurology who recommended to start patient on gabapentin and Seroquel HS that were discontinued due to lethargy Continue thiamine, folic acid, MVI IV on IVF Seizure precautions Ativan prn 4. HTN uncontrolled po meds on hold for now until swallow eval started hydralazine IV 5.Thrombocytopenia most likely chronic secondary to ETOH abuse 6.Hypokalemia, replace with Kcl runs 7. Anemia of chronic disease monitor 8. Depression Pt told RN , he wants to kill himself Psych consult 8. DVT PPx Lovenox
--- NOTE | 2017-05-23 12:44 | CP.PCM.CON ---
History of Present Illness - History of Present Illness History of Present Illness: Psychiatry consult called for depression HPI: 56 y/o homeless male with PMHx significant for HTN, anemia, and EtOH abuse initially presented to ER with multiple falls and minor head trauma, found to have acute ischemic stroke R MCA distribution, s/p acute respiratory failure 2/2 aspiration PNA, now reports feeling depressed in the context of his current medical issues and feelings of guilt that he has emotionally hurt his family. Patient reports that he wishes he was at times, but denies active suicidal ideation/plan/intent. He reports a significant h/o ETOH abuse. He also reports a history of depression and he was treated w/ Paxil in the past, which he stated was helpful when he was actually compliant with it. He reports paranoia that people are out to harm him. He denies current AH/VH/ PPHx: Multiple past admissions for ETOH abuse. He reports a history of two suicide attempts >5 years ago, once by cutting his wrist, the other by overdosing on sleeping pills. PMHx: HTN, anemia, and EtOH abuse, s/p acute ischemic stroke R MCA distribution , s/p acute respiratory failure 2/2 aspiration PNA, hypokalemia, thrombocytopenia ALL: NKDA SHx: Homeless, +h/o ETOH abuse MSE: A + O x self, [facility] and 2017. calm, cooperative, speech very soft and difficult to hear at times, thought content-+mild paranoia, thought process- coherent. Denies hallucinations. Insight/judgment- limited, mood "depressed", affect- constricted. Impulse control-good Impression: 56 y/o homeless male with PMHx significant for HTN, anemia, and EtOH abuse initially presented to ER with multiple falls and minor head trauma, found to have acute ischemic stroke R MCA distribution, s/p acute respiratory failure 2/2 aspiration PNA, now reports feeling depressed in the context of his current medical issues and feelings of guilt that he has emotionally hurt his family. Patient is also exhibiting some mild paranoia. Diagnosis: Alcohol Use Disorder, Depressive Disorder, r/o MDD w/ psychosis, r/o delirium w/ psychosis, r/o neurocognitive impairment. -Start Paxil 20 mg PO Daily -Start Risperdal 0.5 mg PO Daily@1700 -No 1:1 indicated at this time, patient does not have any active suicidal plan/ intent -No acute inpatient psychiatric admission indicated at this time -Call w/ further questions, [phone] Past Patient History - Past Medical History & Family History Past Medical History?: Yes - Past Social History Smoking Status: Light Smoker < 10 Cigarettes Daily Alcohol: Occasional Drugs: Denies Home Situation {Lives}: Homeless - CARDIAC Hx Cardiac Disorders: Yes Hx Hypertension: Yes - PULMONARY Hx Respiratory Disorders: No Hx Tuberculosis: No - NEUROLOGICAL Hx Neurological Disorder: No HX Cerebrovascular Accident: No - HEENT Hx HEENT Problems: No - RENAL Hx Chronic Kidney Disease: No - ENDOCRINE/METABOLIC Hx Endocrine Disorders: No - HEMATOLOGICAL/ONCOLOGICAL Hx Blood Disorders: Yes Hx Anemia: Yes Hx Human Immunodeficiency Virus (HIV): No - INTEGUMENTARY Hx Dermatological Problems: No - MUSCULOSKELETAL/RHEUMATOLOGICAL Hx Musculoskeletal Disorders: Yes Hx Arthritis: Yes Hx Back Pain: Yes - GASTROINTESTINAL Hx Gastrointestinal Disorders: Yes Hx Colitis: Yes - GENITOURINARY/GYNECOLOGICAL Hx Genitourinary Disorders: No - PSYCHIATRIC Hx Psychophysiologic Disorder: No Hx Substance Use: No Other/Comment: ETOH abuse - SURGICAL HISTORY Hx Surgeries: Yes Other/Comment: hemmroids - ANESTHESIA Hx Anesthesia: Yes Hx Anesthesia Reactions: No Hx Malignant Hyperthermia: No Meds Allergies/Adverse Reactions: Allergies Allergy/AdvReac Type Severity Reaction Status Date / Time No Known Allergies Allergy Verified 04/26/17 23:00 - Medications Medications: Current Medications Acetaminophen (Tylenol 650 Mg Supp) 650 mg OH Q6 PRN PRN Reason: Fever >100.4 F Last Admin: 05/11/17 04:50 Dose: 650 mg Acetylcysteine (Acetylcysteine 20%) 2 ml INH RBID [facility] Last Admin: 05/23/17 08:09 Dose: 2 ml Albuterol/Ipratropium (Duoneb 3 Mg/0.5 Mg (3 Ml) Ud) 3 ml INH RQID [facility] Last Admin: 05/23/17 11:09 Dose: 3 ml Aspirin (Aspirin Supp) 300 mg OH DAILY [facility] Last Admin: 05/23/17 09:04 Dose: 300 mg Atorvastatin Calcium (Lipitor) 40 mg PO DAILY [facility] Last Admin: 05/23/17 08:59 Dose: Not Given Clopidogrel Bisulfate (Plavix) 75 mg PO DAILY [facility] Last Admin: 05/23/17 09:00 Dose: Not Given Enoxaparin Sodium (Lovenox) 40 mg SC DAILY [facility] PRN Reason: Protocol Last Admin: 05/23/17 09:03 Dose: 40 mg Hydralazine HCl (Apresoline) 10 mg IV Q6 PRN PRN Reason: Systolic Blood Pressure Last Admin: 05/22/17 16:44 Dose: 10 mg Meropenem 1 gm/ Sodium (Chloride) 100 mls @ 100 mls/hr IVPB Q8 [facility] Last Admin: 05/23/17 09:02 Dose: 100 mls/hr Oral Electrolytes (Kcl 40meq/ 0.9% 1l) 1,000 mls @ 100 mls/hr IV .Q10H [facility] Stop: 05/24/17 08:02 Last Admin: 05/23/17 10:03 Dose: 100 mls/hr Lorazepam (Ativan) 1 mg IVP Q6 PRN PRN Reason: Agitation Last Admin: 05/21/17 01:06 Dose: 1 mg Morphine Sulfate (Morphine) 2 mg IVP Q6 PRN PRN Reason: Agitation Last Admin: 05/23/17 09:29 Dose: 2 mg Pantoprazole Sodium (Protonix Inj) 40 mg IVP DAILY [facility] Last Admin: 05/23/17 12:03 Dose: 40 mg Quetiapine Fumarate (Seroquel) 25 mg PO HS [facility] Last Admin: 05/03/17 22:55 Dose: Not Given Results - Vital Signs Recent Vital Signs: Last Vital Signs Temp 98.2 F 05/23/17 08:19 Pulse 98 H 05/23/17 08:19 Resp 17 05/23/17 08:19 BP 140/89 05/23/17 08:19 Pulse Ox 100 05/23/17 08:19 - Labs Result Diagrams: 05/23/17 04:30 05/23/17 04:30 Labs: Laboratory Results - last 24 hr 05/23/17 05/23/17 04:30 04:30 WBC 9.4 RBC 4.02 L Hgb 13.7 Hct 40.0 MCV 99.5 H MCH 34.0 H MCHC 34.2 RDW 13.9 Plt Count 122 L Sodium 136 Potassium 3.2 L Chloride 97 L Carbon Dioxide 28 Anion Gap 14 BUN 2 L Creatinine 0.4 L Est GFR ( Amer) > 60 Est GFR (Non-Af Amer) > 60 Random Glucose 100 Calcium 9.6
[2017-05-23] MEDS ORDERED: Barium Sulfate Susp 0.1% w/v, 0.1% w/w 450 mL Bottle PO ONE (13:28)
--- NOTE | 2017-05-23 15:25 | CP.PCM.PN ---
Subjective - Date & Time of Evaluation Date of Evaluation: 05/23/17 Time of Evaluation: 10:00 - Subjective Subjective: F/U Respiratory Failure. Objective - Vital Signs/Intake and Output Vital Signs (last 24 hours): Temp Pulse Resp BP Pulse Ox 98.5 F 77 18 117/73 100 05/23/17 12:39 05/23/17 12:39 05/23/17 12:39 05/23/17 12:39 05/23/17 12:39 Intake and Output: 05/23/17 05/23/17 06:59 18:59 Intake Total 1200 750 Output Total 1250 Balance 1200 -500 - Medications Medications: Current Medications Acetaminophen (Tylenol 650 Mg Supp) 650 mg [place] Q6 PRN PRN Reason: Fever >100.4 F Last Admin: 05/11/17 04:50 Dose: 650 mg Acetylcysteine (Acetylcysteine 20%) 2 ml INH RBID [facility] Last Admin: 05/23/17 08:09 Dose: 2 ml Albuterol/Ipratropium (Duoneb 3 Mg/0.5 Mg (3 Ml) Ud) 3 ml INH RQID [facility] Last Admin: 05/23/17 11:09 Dose: 3 ml Aspirin (Aspirin Supp) 300 mg NH DAILY [facility] Last Admin: 05/23/17 09:04 Dose: 300 mg Atorvastatin Calcium (Lipitor) 40 mg PO DAILY [facility] Last Admin: 05/23/17 08:59 Dose: Not Given Clopidogrel Bisulfate (Plavix) 75 mg PO DAILY [facility] Last Admin: 05/23/17 09:00 Dose: Not Given Enoxaparin Sodium (Lovenox) 40 mg SC DAILY [facility] PRN Reason: Protocol Last Admin: 05/23/17 09:03 Dose: 40 mg Hydralazine HCl (Apresoline) 10 mg IV Q6 PRN PRN Reason: Systolic Blood Pressure Last Admin: 05/22/17 16:44 Dose: 10 mg Meropenem 1 gm/ Sodium (Chloride) 100 mls @ 100 mls/hr IVPB Q8 [facility] Last Admin: 05/23/17 09:02 Dose: 100 mls/hr Oral Electrolytes (Kcl 40meq/ 0.9% 1l) 1,000 mls @ 100 mls/hr IV .Q10H [facility] Stop: 05/24/17 08:02 Last Admin: 05/23/17 10:03 Dose: 100 mls/hr Lorazepam (Ativan) 1 mg IVP Q6 PRN PRN Reason: Agitation Last Admin: 05/21/17 01:06 Dose: 1 mg Morphine Sulfate (Morphine) 2 mg IVP Q6 PRN PRN Reason: Agitation Last Admin: 05/23/17 09:29 Dose: 2 mg Pantoprazole Sodium (Protonix Inj) 40 mg IVP DAILY [facility] Last Admin: 05/23/17 12:03 Dose: 40 mg Quetiapine Fumarate (Seroquel) 25 mg PO HS [facility] Last Admin: 05/03/17 22:55 Dose: Not Given - Labs Labs: 05/23/17 04:30 05/23/17 04:30 PT 13.8 Seconds (9.8-13.1) H 05/15/17 10:20 INR 1.3 (0.9-1.2) H 05/15/17 10:20 APTT 34.9 Seconds (25.6-37.1) 05/15/17 10:20 - Constitutional Appears: Chronically Ill - Head Exam Head Exam: NORMAL INSPECTION - Eye Exam Eye Exam: PERRL - ENT Exam ENT Exam: Normal Exam - Neck Exam Neck Exam: Normal Inspection - Respiratory Exam Respiratory Exam: Decreased Breath Sounds, Rhonchi (few scattered) - Cardiovascular Exam Cardiovascular Exam: REGULAR RHYTHM - GI/Abdominal Exam GI & Abdominal Exam: Soft, Normal Bowel Sounds - Extremities Exam Additional comments: Edema upper extremities, spontaneous movements RUE, RLE - Back Exam Back Exam: NORMAL INSPECTION - Neurological Exam Neurological Exam: Alert, Awake Additional comments: Response to tactile and verbal stimuli, follows simple commands, L Hemiplegia. - Psychiatric Exam Additional comments: Calm - Skin Skin Exam: Warm Assessment and Plan (1) Acute respiratory failure Status: Acute (2) MRSA pneumonia Status: Acute (3) Acute right MCA stroke Status: Acute
--- NOTE | 2017-05-23 16:43 | RAD ---
PROCEDURE: Prior swallow with speech pathology HISTORY: dysphagia COMPARISON: 05/06/2017 TECHNIQUE: Standard protocol for this study/examination. FINDINGS: Silent penetration/aspiration with honey thick liquid. This was seen on the prior study as well. IMPRESSION: Persistent silent aspiration with honey thick liquid.
[2017-05-24] MEDS: Meropenem 1 GM in Sodium Chloride 0.9% 100 ML IVPB SCH ×2 (01:04→09:38)
[2017-05-24] MEDS: KCL 40MEQ/NS 1L 1,000 ML IV SCH (05:04)
[2017-05-24 07:20] LABS: HEMATOCRIT 41.7 % (35.0-51.0); MEAN CELL VOLUME 100.4 fl (80.0-94.0); MEAN CORPUSCULAR HEMOGLOBIN 33.3 pg (27.0-31.0); MEAN CORPUSCULAR HGB CONC 33.2 g/dL (33.0-37.0); RED CELL DISTRIBUTION WIDTH 14.3 % (11.5-14.5)
[2017-05-24 07:37] LABS: BLOOD UREA NITROGEN 4 mg/dl (9-20); CALCIUM 9.6 mg/dL (8.4-10.2); CARBON DIOXIDE 25 mmol/L (22-30); CHLORIDE 100 mmol/L (98-107); GFR AFRICAN-AMERICAN > 60; GLUCOSE,RANDOM 84 mg/dL (75-110); POTASSIUM 4.4 MMOL/L (3.6-5.0); SODIUM 136 mmol/l (132-148)
[2017-05-24] MEDS: Acetylcysteine 20% Inhal Soln (4ml) INH SCH ×2 (07:50→19:21)
[2017-05-24] MEDS: Albuterol-Ipratrop 3 mg / 0.5 (3 ml) UD INH SCH ×4 (07:50→19:21)
[2017-05-24] MEDS ORDERED: Thiamine 100 mg/ml Inj IV SCH (09:00)
[2017-05-24] MEDS ORDERED: Chlorhexidine Gluconate 1 APPL/PKT TP ONE (09:36)
--- NOTE | 2017-05-24 09:44 | CP.PCM.PN ---
Subjective - Date & Time of Evaluation Date of Evaluation: 05/24/17 Time of Evaluation: 08:45 - Subjective Subjective: No fever Denies CP no SOB no abd pain agreeable to plan fo PEG placement also agrees to YEHUDA placement Objective - Vital Signs/Intake and Output Vital Signs (last 24 hours): Temp Pulse Resp BP Pulse Ox 98.0 F 84 18 176/90 H 99 05/24/17 08:22 05/24/17 09:42 05/24/17 08:22 05/24/17 09:42 05/24/17 08:22 Intake and Output: 05/24/17 05/24/17 06:59 18:59 Intake Total 1000 Output Total 150 Balance 850 - Medications Medications: Current Medications Acetaminophen (Tylenol 650 Mg Supp) 650 mg IN Q6 PRN PRN Reason: Fever >100.4 F Last Admin: 05/11/17 04:50 Dose: 650 mg Acetylcysteine (Acetylcysteine 20%) 2 ml INH RBID [facility] Last Admin: 05/24/17 07:50 Dose: 2 ml Albuterol/Ipratropium (Duoneb 3 Mg/0.5 Mg (3 Ml) Ud) 3 ml INH RQID [facility] Last Admin: 05/24/17 07:50 Dose: 3 ml Aspirin (Aspirin Supp) 300 mg IN DAILY [facility] Last Admin: 05/24/17 09:38 Dose: 300 mg Atorvastatin Calcium (Lipitor) 40 mg PO DAILY [facility] Last Admin: 05/23/17 08:59 Dose: Not Given Clopidogrel Bisulfate (Plavix) 75 mg PO DAILY [facility] Last Admin: 05/23/17 09:00 Dose: Not Given Enoxaparin Sodium (Lovenox) 40 mg SC DAILY [facility] PRN Reason: Protocol Last Admin: 05/23/17 09:03 Dose: 40 mg Hydralazine HCl (Apresoline) 10 mg IV Q6 PRN PRN Reason: Systolic Blood Pressure Last Admin: 05/24/17 09:42 Dose: 10 mg Lorazepam (Ativan) 1 mg IVP Q6 PRN PRN Reason: Agitation Last Admin: 05/21/17 01:06 Dose: 1 mg Morphine Sulfate (Morphine) 2 mg IVP Q6 PRN PRN Reason: Agitation Last Admin: 05/23/17 16:56 Dose: 2 mg Pantoprazole Sodium (Protonix Inj) 40 mg IVP DAILY [facility] Last Admin: 05/24/17 09:37 Dose: 40 mg Quetiapine Fumarate (Seroquel) 25 mg PO HS [facility] Last Admin: 05/03/17 22:55 Dose: Not Given Thiamine HCl (Vitamin B1 Inj) 100 mg IV DAILY [facility] - Labs Labs: 05/24/17 06:30 05/24/17 06:30 PT 13.8 Seconds (9.8-13.1) H 05/15/17 10:20 INR 1.3 (0.9-1.2) H 05/15/17 10:20 APTT 34.9 Seconds (25.6-37.1) 05/15/17 10:20 - Constitutional Appears: Unkempt, Older Than Stated Age, Cachectic, Chronically Ill Not in distress - Head Exam Head Exam: NORMAL INSPECTION, NORMOCEPHALIC - Eye Exam Eye Exam: EOMI, Normal appearance Pupil Exam: NORMAL ACCOMODATION - ENT Exam ENT Exam: Mucous Membranes Dry, Normal External Ear Exam - Neck Exam Neck Exam: Full ROM. absent: Meningismus - Respiratory Exam Respiratory Exam: Rales, Rhonchi. absent: Wheezes - Cardiovascular Exam Cardiovascular Exam: REGULAR RHYTHM, +S1, +S2 - GI/Abdominal Exam GI & Abdominal Exam: Soft, Normal Bowel Sounds. absent: Tenderness - Extremities Exam Extremities Exam: Normal Capillary Refill. absent: Calf Tenderness, Pedal Edema - Neurological Exam Neurological Exam: Alert, Awake Additional comments: oriented to person moves RUE and RLE 5/5 noted to be able to move LUE with gravity though weaker than R 4/5 moved LLE but not against gravity 1/5 - Psychiatric Exam Psychiatric exam: Flat Affect - Skin Skin Exam: Dry, Normal Color, Warm Assessment and Plan - Assessment and Plan (Free Text) Assessment: 56 y/o homeless male with PMHx significant for HTN, anemia, and EtOH abuse presented to ER with multiple falls and minor head trauma. He stated that he had been feeling 'off balance' and falling more over the past several days. Denied any focal weakness, but felt like both his feet were numb (this is ongoing, not new) and also c/o back pain (also chronic); he also felt off balance more lately as well. Patient has history of chronic ETOH use . CT head in ER showed Multiple bilateral lacunar infarcts and severe cortical atrophy. Patient admitted in telemetry for close monitoring. MRI head showed acute right MCA stroke Patient started on ASa, lovenox and statin. Neurology and PT consulted He developed DT-s and was started on gabapentin 300 mg PO TID , Seroquel and Ativan PRN Patient became more lethargic with dyarthria, dysphagia, left facial droop and left side weakness that progressed to flacid Repeat MRI of the head showed : Findings compatible with the known recent right basal ganglia infarct. No new areas of infarction seen. No MR evidence of associated hemorrhage. He developed acute hypoxemic respiratory failure on 05/09 likely due to Aspiration PNA, was intubated and transferred to ICU. Now he is extubated since 05/19 , saturating 97 % in RA, maintaining his airway Neurologically much better ,he is awake and alert , follows commands, moving right side of his body and also now able to move LUE 4/5 and LLE 1/5. Failed Modofied Barium Swallow study. 1. Acute Respiratory failure with Hypoxia sec to Aspiration Pneumonia, improving Patient was intubated for more than 10 days in ICU .He did develop total opacification of left lung 05/09 due to aspiration pneumonia since patient could not handle his secretions and could not protect his airway . Extubated and doing well, maintaining his airway at present , saturating 100 % on 3 L O2 via NC Patient is improving neurologically Sputum cultures positive for MRSA and Serratia Marcescen and patient started on meropenem and Vanco IV as per ID Afebrile, leukocytosis resolved keep head of the bed elevated frequent suctioning and aspiration precautions CXR showed improvement of left side infiltrates No need for bronchoscopy and trache at present Pulmonary on consult Completed IV vanco and Meropenem 2. Acute Ischemic stroke - Right MCA distribution patient became lethargic with dysarthria, dysphagia, left facial droop and left side hemiparesis with stroke progression MRI of the head 04/28 : 1. Acute right MCA territory infarction involving the right narayanan radiata and basal ganglia. At present neurologically much improved,awake. alert with some confusion on and off, maintaining his airway , able to move LUE 4/5 , LLE 1/5, awake, alert and oriented , following commands and responding questions appropriately Started PT , OT and speech eval . Refused NGT placement so plavix and Statin on hold Continue ASA IN , lovenox CTA neck showed no Blood clot , carotid doppler showed no stenosis Echo showed normal EF and wall motion Repeat CT head showed no hemorrhagic conversion EEG: No epileptiform activity Neuro on board following Failed Video Swallow : GI reconsulted for PEG placement Rehab placement as soon as we find an accepting facility 3.ETOH withdrawal/ Delirium tremens-- resolved but now lethargic due to CVA patient was tachycardic, tremulous, confused with visual hallucinations on admission was initially Started on librium tapering dose-- discontinued due to sedation discussed with neurology who recommended to start patient on gabapentin and Seroquel HS that were discontinued due to lethargy Continue thiamine, folic acid, MVI IV on IVF Seizure precautions Ativan prn 4. HTN uncontrolled po meds on hold for now until swallow eval started hydralazine IV 5.Thrombocytopenia most likely chronic secondary to ETOH abuse improving 6.Hypokalemia, replace with Kcl runs 7. Anemia of chronic disease monitor 8. Depression Pt told RN , he wants to kill himself Psych consulted- Psych rec Paxil and Risperdal - will start as soon as pt can have PO 8. DVT PPx Lovenox
[2017-05-24] MEDS: Enoxaparin 40 mg Syringe SC SCH (09:46)
[2017-05-24] MEDS: Thiamine 100 MG in Sodium Chloride 0.9% 100 ML IV SCH (11:51)
[2017-05-24] MEDS: Potassium Chl 20 mEq in D5-NS 1,000 ML IV SCH (16:09)
[2017-05-25] MEDS: Potassium Chl 20 mEq in D5-NS 1,000 ML IV SCH ×2 (01:00→14:10)
[2017-05-25] MEDS: Albuterol-Ipratrop 3 mg / 0.5 (3 ml) UD INH SCH ×4 (08:00→19:25)
[2017-05-25] MEDS: Acetylcysteine 20% Inhal Soln (4ml) INH SCH ×2 (08:00→19:25)
[2017-05-25] MEDS: Enoxaparin 40 mg Syringe SC SCH (09:30)
[2017-05-25] MEDS: Thiamine 100 MG in Sodium Chloride 0.9% 100 ML IV SCH ×2 (09:32→09:39)
--- NOTE | 2017-05-25 11:43 | CP.PCM.PN ---
Subjective - Date & Time of Evaluation Date of Evaluation: 05/25/17 Time of Evaluation: 10:30 - Subjective Subjective: No fever Pt is alert, oriented to person and place, follows commands Denies CP + cough occasionally denies abd pain agrees to PEG placement Objective - Vital Signs/Intake and Output Vital Signs (last 24 hours): Temp Pulse Resp BP Pulse Ox 97.7 F 69 20 169/73 H 99 05/25/17 08:00 05/25/17 09:30 05/25/17 08:00 05/25/17 09:30 05/25/17 08:00 - Medications Medications: Current Medications Acetaminophen (Tylenol 650 Mg Supp) [address] Q6 PRN PRN Reason: Fever >100.4 F Last Admin: 05/11/17 04:50 Dose: 650 mg Acetylcysteine (Acetylcysteine 20%) 2 ml INH RBID [facility] Last Admin: 05/25/17 08:00 Dose: 2 ml Albuterol/Ipratropium (Duoneb 3 Mg/0.5 Mg (3 Ml) Ud) 3 ml INH RQID [facility] Last Admin: 05/25/17 11:05 Dose: 3 ml Aspirin (Aspirin Supp) [address] DAILY [facility] Last Admin: 05/25/17 09:37 Dose: Not Given Atorvastatin Calcium (Lipitor) 40 mg PO DAILY [facility] Last Admin: 05/25/17 09:27 Dose: Not Given Clopidogrel Bisulfate (Plavix) 75 mg PO DAILY [facility] Last Admin: 05/25/17 09:27 Dose: Not Given Enoxaparin Sodium (Lovenox) 40 mg SC DAILY [facility] PRN Reason: Protocol Last Admin: 05/25/17 09:30 Dose: 40 mg Hydralazine HCl (Apresoline) 10 mg IV Q6 PRN PRN Reason: Systolic Blood Pressure Last Admin: 05/25/17 09:30 Dose: 10 mg Thiamine HCl 100 mg/ Sodium (Chloride) 101 mls @ 101 mls/hr IV DAILY [facility] Last Admin: 05/25/17 09:32 Dose: Not Given Potassium Chloride/Dextrose/Sod Cl (Potassium Chl 20 Meq In D5-Ns) 1,000 mls @ 80 mls/hr IV .[id number] [facility] Stop: 05/26/17 09:00 Last Admin: 05/25/17 01:00 Dose: 80 mls/hr Lorazepam (Ativan) 1 mg IVP Q6 PRN PRN Reason: Agitation Last Admin: 05/21/17 01:06 Dose: 1 mg Morphine Sulfate (Morphine) 2 mg IVP Q6 PRN PRN Reason: Agitation Last Admin: 05/23/17 16:56 Dose: 2 mg Pantoprazole Sodium (Protonix Inj) 40 mg IVP DAILY [facility] Last Admin: 05/25/17 09:30 Dose: 40 mg Quetiapine Fumarate (Seroquel) 25 mg PO HS [facility] Last Admin: 05/03/17 22:55 Dose: Not Given - Labs Labs: 05/24/17 06:30 05/24/17 06:30 PT 13.8 Seconds (9.8-13.1) H 05/15/17 10:20 INR 1.3 (0.9-1.2) H 05/15/17 10:20 APTT 34.9 Seconds (25.6-37.1) 05/15/17 10:20 - Constitutional Appears: Unkempt, Older Than Stated Age, Cachectic, Chronically Ill Not in distress - Head Exam Head Exam: NORMAL INSPECTION, NORMOCEPHALIC - Eye Exam Eye Exam: EOMI, Normal appearance Pupil Exam: NORMAL ACCOMODATION - ENT Exam ENT Exam: Mucous Membranes Dry, Normal External Ear Exam - Neck Exam Neck Exam: Full ROM. absent: Meningismus - Respiratory Exam Respiratory Exam: Rales, Rhonchi. absent: Wheezes - Cardiovascular Exam Cardiovascular Exam: REGULAR RHYTHM, +S1, +S2 - GI/Abdominal Exam GI & Abdominal Exam: Soft, Normal Bowel Sounds. absent: Tenderness - Extremities Exam Extremities Exam: Normal Capillary Refill. absent: Calf Tenderness, Pedal Edema - Neurological Exam Neurological Exam: Alert, Awake Additional comments: oriented to person and place follows commands moves RUE and RLE 5/5 noted to be able to move LUE with gravity though weaker than R 4/5 moved LLE but not against gravity 1/5 - Psychiatric Exam Psychiatric exam: Flat Affect - Skin Skin Exam: Dry, Normal Color, Warm Assessment and Plan - Assessment and Plan (Free Text) Assessment: 56 y/o homeless male with PMHx significant for HTN, anemia, and EtOH abuse presented to ER with multiple falls and minor head trauma. He stated that he had been feeling 'off balance' and falling more over the past several days. Denied any focal weakness, but felt like both his feet were numb (this is ongoing, not new) and also c/o back pain (also chronic); he also felt off balance more lately as well. Patient has history of chronic ETOH use . CT head in ER showed Multiple bilateral lacunar infarcts and severe cortical atrophy. Patient admitted in telemetry for close monitoring. MRI head showed acute right MCA stroke Patient started on ASa, lovenox and statin. Neurology and PT consulted He developed DT-s and was started on gabapentin 300 mg PO TID , Seroquel and Ativan PRN Patient became more lethargic with dyarthria, dysphagia, left facial droop and left side weakness that progressed to flacid Repeat MRI of the head showed : Findings compatible with the known recent right basal ganglia infarct. No new areas of infarction seen. No MR evidence of associated hemorrhage. He developed acute hypoxemic respiratory failure on 05/09 likely due to Aspiration PNA, was intubated and transferred to ICU. Now he is extubated since 05/19 , saturating 97 % in RA, maintaining his airway Neurologically much better ,he is awake and alert , follows commands, moving right side of his body and also now able to move LUE 4/5 and LLE 1/5. Failed Modified Barium Swallow study. 1. Acute Respiratory failure with Hypoxia sec to Aspiration Pneumonia, improving Patient was intubated for more than 10 days in ICU .He did develop total opacification of left lung 05/09 due to aspiration pneumonia since patient could not handle his secretions and could not protect his airway . Extubated and doing well, maintaining his airway at present , saturating 100 % on 3 L O2 via NC Patient is improving neurologically Sputum cultures positive for MRSA and Serratia Marcescen and patient started on meropenem and Vanco IV as per ID Afebrile, leukocytosis resolved keep head of the bed elevated frequent suctioning and aspiration precautions CXR showed improvement of left side infiltrates No need for bronchoscopy and trache at present Pulmonary on consult Completed IV vanco and Meropenem 2. Acute Ischemic stroke - Right MCA distribution patient became lethargic with dysarthria, dysphagia, left facial droop and left side hemiparesis with stroke progression MRI of the head 04/28 : 1. Acute right MCA territory infarction involving the right narayanan radiata and basal ganglia. At present neurologically much improved,awake. alert with some confusion on and off, maintaining his airway , able to move LUE 4/5 , LLE 1/5, awake, alert and oriented , following commands and responding questions appropriately Started PT , OT and speech eval . Refused NGT placement so plavix and Statin on hold Pt on ASA rectal supp - will hold in case PEG can be placed in am or Tuesday CTA neck showed no Blood clot , carotid doppler showed no stenosis Echo showed normal EF and wall motion Repeat CT head showed no hemorrhagic conversion EEG: No epileptiform activity Neuro on board following Failed Video Swallow : GI reconsulted for PEG placement- discussed case with Dr Tolbert Rehab placement as soon as we find an accepting facility 3.ETOH withdrawal/ Delirium tremens-- resolved but now lethargic due to CVA patient was tachycardic, tremulous, confused with visual hallucinations on admission was initially Started on librium tapering dose-- discontinued due to sedation As per neurology who recommended to start patient on gabapentin and Seroquel HS that were discontinued due to lethargy Continue thiamine, folic acid, MVI IV on IVF Seizure precautions Ativan prn 4. HTN uncontrolled po meds on hold for now until swallow eval started hydralazine IV RTC Enalapril IV 5.Thrombocytopenia most likely chronic secondary to ETOH abuse improving 6.Hypokalemia, replace with Kcl runs 7. Anemia of chronic disease monitor 8. Depression Pt told RN , he wants to kill himself Psych consulted- Psych rec Paxil and Risperdal - will start as soon as pt can have PO 8. DVT PPx Lovenox- hold in am, in case PEG can be placed in am
[2017-05-25] MEDS ORDERED: EnalaprilAT 1.25 mg/ml Inj IV SCH (17:00)
[2017-05-25] MEDS: EnalaprilAT 1.25 mg/ml Inj IV SCH (22:10)
[2017-05-26] MEDS: Potassium Chl 20 mEq in D5-NS 1,000 ML IV SCH (01:02)
[2017-05-26] MEDS: EnalaprilAT 1.25 mg/ml Inj IV SCH ×4 (04:57→21:28)
[2017-05-26 07:02] LABS: HEMATOCRIT 39.6 % (35.0-51.0); MEAN CELL VOLUME 98.7 fl (80.0-94.0); MEAN CORPUSCULAR HEMOGLOBIN 33.6 pg (27.0-31.0); RED CELL DISTRIBUTION WIDTH 14.2 % (11.5-14.5)
[2017-05-26 07:32] LABS: BLOOD UREA NITROGEN 3 mg/dl (9-20); CALCIUM 9.3 mg/dL (8.4-10.2); CARBON DIOXIDE 22 mmol/L (22-30); CHLORIDE 102 mmol/L (98-107); GFR AFRICAN-AMERICAN > 60; GLUCOSE,RANDOM 97 mg/dL (75-110); POTASSIUM 4.7 MMOL/L (3.6-5.0); SODIUM 136 mmol/l (132-148)
[2017-05-26] MEDS: Albuterol-Ipratrop 3 mg / 0.5 (3 ml) UD INH SCH ×4 (07:56→19:34)
[2017-05-26] MEDS: Acetylcysteine 20% Inhal Soln (4ml) INH SCH ×2 (07:57→19:34)
[2017-05-26] MEDS: Enoxaparin 40 mg Syringe SC SCH (09:24)
--- NOTE | 2017-05-26 09:25 | CP.PCM.PN ---
<Nati Glover - Last Filed: 05/26/17 09:26> Subjective - Date & Time of Evaluation Date of Evaluation: 05/26/17 Time of Evaluation: 07:00 - Subjective Subjective: PGY4 GI Follow-up Pt seen and examined bedside Able to answer most question appropriately, though sometimes confused Denies any CP, SOB, or abd pain NPO since extubation, refused NG tube ROS: 10 point ROS was neg except chronic back pain Objective - Vital Signs/Intake and Output Vital Signs (last 24 hours): Temp Pulse Resp BP Pulse Ox 98.2 F 84 20 167/89 H 99 05/26/17 07:57 05/26/17 07:57 05/26/17 07:57 05/26/17 07:57 05/26/17 07:57 - Medications Medications: Current Medications Acetaminophen (Tylenol 650 Mg Supp) 650 mg [place] Q6 PRN PRN Reason: Fever >100.4 F Last Admin: 05/11/17 04:50 Dose: 650 mg Acetylcysteine (Acetylcysteine 20%) 2 ml INH RBID [facility] Last Admin: 05/26/17 07:57 Dose: 2 ml Albuterol/Ipratropium (Duoneb 3 Mg/0.5 Mg (3 Ml) Ud) 3 ml INH RQID [facility] Last Admin: 05/26/17 07:56 Dose: 3 ml Aspirin (Aspirin Supp) 300 mg AK DAILY [facility] Last Admin: 05/25/17 09:37 Dose: Not Given Atorvastatin Calcium (Lipitor) 40 mg PO DAILY [facility] Last Admin: 05/25/17 09:27 Dose: Not Given Clopidogrel Bisulfate (Plavix) 75 mg PO DAILY [facility] Last Admin: 05/25/17 09:27 Dose: Not Given Enalaprilat (Vasotec Iv) 1.25 mg IV Q6 [facility] Last Admin: 05/26/17 04:57 Dose: 1.25 mg Enoxaparin Sodium (Lovenox) 40 mg SC DAILY [facility] PRN Reason: Protocol Last Admin: 05/25/17 09:30 Dose: 40 mg Hydralazine HCl (Apresoline) 10 mg IV Q6 PRN PRN Reason: Systolic Blood Pressure Last Admin: 05/25/17 18:52 Dose: 10 mg Hydralazine HCl (Apresoline) 10 mg IV Q8 [facility] Last Admin: 05/26/17 00:57 Dose: 10 mg Thiamine HCl 100 mg/ Sodium (Chloride) 101 mls @ 101 mls/hr IV DAILY [facility] Last Admin: 05/25/17 09:39 Dose: 101 mls/hr Lorazepam (Ativan) 1 mg IVP Q6 PRN PRN Reason: Agitation Last Admin: 05/21/17 01:06 Dose: 1 mg Morphine Sulfate (Morphine) 2 mg IVP Q6 PRN PRN Reason: Agitation Last Admin: 05/23/17 16:56 Dose: 2 mg Pantoprazole Sodium (Protonix Inj) 40 mg IVP DAILY [facility] Last Admin: 05/25/17 09:30 Dose: 40 mg Quetiapine Fumarate (Seroquel) 25 mg PO HS [facility] Last Admin: 05/03/17 22:55 Dose: Not Given - Labs Labs: 05/26/17 06:00 05/26/17 06:00 PT 12.8 Seconds (9.8-13.1) 05/26/17 06:00 INR 1.2 (0.9-1.2) 05/26/17 06:00 APTT 36.0 Seconds (25.6-37.1) 05/26/17 06:00 - Constitutional Appears: No Acute Distress, Cachectic, Chronically Ill - Head Exam Head Exam: ATRAUMATIC - Eye Exam Eye Exam: Normal appearance - ENT Exam ENT Exam: Mucous Membranes Dry - Respiratory Exam Respiratory Exam: Clear to Ausculation Bilateral, NORMAL BREATHING PATTERN. absent: Rales, Rhonchi, Wheezes - Cardiovascular Exam Cardiovascular Exam: REGULAR RHYTHM, +S1, +S2 - GI/Abdominal Exam GI & Abdominal Exam: Soft, Normal Bowel Sounds. absent: Guarding, Rigid, Tenderness, Diminished Bowel Sounds, Organomegaly - Extremities Exam Extremities Exam: absent: Joint Swelling, Pedal Edema - Neurological Exam Neurological Exam: Alert, Awake, Oriented x3 - Psychiatric Exam Psychiatric exam: Flat Affect, Normal Mood - Skin Skin Exam: Dry, Intact, Normal Color, Warm Assessment and Plan - Assessment and Plan (Free Text) Assessment: This is a 56yM with a hx of alcohol abuse, HTN, CBP s/p fall and found to have a Acute CVA with left sided weakness, dysarthria and dysphagia. Request for PEG tube placement. Dyphagia with aspiration due to CVA Respiratory failure s/p extubation Aspiration PNA Acute CVA- Right Basal ganglia, narayanan radiata infarct Macrocytic Anemia ETOH abuse/dependence s/p DTs Plan: -still no clear POA, apparently sister is now considered a candidate, though initially it was the nephew and then the daughter. Recommend ethic referral -recommend starting TPN, as pt has been NPO since extubation -continue abx as per ID -Recommend repeat swallow eval today, as list modified barium was done within 12 -24 hrs after extubation, pt is now more awake -continue aspiration precautions -continue antiplat as per Neuro and primary team Will D/W Dr. Tolbert <Olga Tolbert MD - Last Filed: 05/26/17 15:58> Objective - Vital Signs/Intake and Output Vital Signs (last 24 hours): Temp Pulse Resp BP Pulse Ox 97.1 F L 84 18 154/75 H 97 05/26/17 12:57 05/26/17 12:57 05/26/17 12:57 05/26/17 12:57 05/26/17 12:57 - Medications Medications: Current Medications Acetaminophen (Tylenol 650 Mg Supp) 650 mg AK Q6 PRN PRN Reason: Fever >100.4 F Last Admin: 05/11/17 04:50 Dose: 650 mg Acetylcysteine (Acetylcysteine 20%) 2 ml INH RBID [facility] Last Admin: 05/26/17 07:57 Dose: 2 ml Albuterol/Ipratropium (Duoneb 3 Mg/0.5 Mg (3 Ml) Ud) 3 ml INH RQID [facility] Last Admin: 05/26/17 15:41 Dose: 3 ml Aspirin (Aspirin Supp) 300 mg AK DAILY [facility] Last Admin: 05/25/17 09:37 Dose: Not Given Atorvastatin Calcium (Lipitor) 40 mg PO DAILY [facility] Last Admin: 05/26/17 09:15 Dose: Not Given Clopidogrel Bisulfate (Plavix) 75 mg PO DAILY [facility] Last Admin: 05/25/17 09:27 Dose: Not Given Enalaprilat (Vasotec Iv) 1.25 mg IV Q6 [facility] Last Admin: 05/26/17 09:24 Dose: 1.25 mg Enoxaparin Sodium (Lovenox) 40 mg SC DAILY [facility] PRN Reason: Protocol Last Admin: 05/26/17 09:24 Dose: 40 mg Hydralazine HCl (Apresoline) 10 mg IV Q6 PRN PRN Reason: Systolic Blood Pressure Last Admin: 05/25/17 18:52 Dose: 10 mg Hydralazine HCl (Apresoline) 10 mg IV Q8 [facility] Last Admin: 05/26/17 09:19 Dose: 10 mg Thiamine HCl 100 mg/ Sodium (Chloride) 101 mls @ 101 mls/hr IV DAILY [facility] Last Admin: 05/26/17 13:34 Dose: 101 mls/hr Lorazepam (Ativan) 1 mg IVP Q6 PRN PRN Reason: Agitation Last Admin: 05/21/17 01:06 Dose: 1 mg Morphine Sulfate (Morphine) 2 mg IVP Q6 PRN PRN Reason: Agitation Last Admin: 05/23/17 16:56 Dose: 2 mg Pantoprazole Sodium (Protonix Ec Tab) 40 mg PO DAILY [facility] Quetiapine Fumarate (Seroquel) 25 mg PO HS [facility] Last Admin: 05/03/17 22:55 Dose: Not Given - Labs Labs: 05/26/17 06:00 05/26/17 06:00 PT 12.8 Seconds (9.8-13.1) 05/26/17 06:00 INR 1.2 (0.9-1.2) 05/26/17 06:00 APTT 36.0 Seconds (25.6-37.1) 05/26/17 06:00 Attending/Attestation - Attestation I have personally seen and examined this patient.: Yes I have fully participated in the care of the patient.: Yes I have reviewed all pertinent clinical information, including history, physical exam and plan: Yes Notes (Text): 05/26/17 15:51 This is a 56 year old M with a hx of alcohol abuse, HTN, CBP s/p fall and found to have a Acute CVA with left sided weakness, dysarthria and dysphagia. Request for PEG tube placement. Plavix has been on hold since 05/21/17. patient did not have capacity this morning. Not oriented to time. As per team and risk management patients sister is now NOK to sign consent for PEG procedure. Will reach the sister and explain risks, benefits and alternatives and schedule for early next week. Discussed with the team. Rest of care as per primary team. Meanwhile patient should get repeat speech and swallow and supportive care. GI/ DVT prophylaxis. Anti platelet should be held for 5 days after we obtain the consent from NOK. Currently patient is not scheduled
[2017-05-26] MEDS: Thiamine 100 MG in Sodium Chloride 0.9% 100 ML IV SCH (13:34)
--- NOTE | 2017-05-26 15:54 | CP.PCM.PN ---
Subjective - Date & Time of Evaluation Date of Evaluation: 05/26/17 Time of Evaluation: 12:00 - Subjective Subjective: patient seen and examined bedside. Lying in bed comfortable in NAD. Hemodynamically stable, afebrile No acute issues overnight He is awake, alert to place and person , follows commands. With some confusion at times Moving his left side Objective - Vital Signs/Intake and Output Vital Signs (last 24 hours): Temp Pulse Resp BP Pulse Ox 97.1 F L 84 18 154/75 H 97 05/26/17 12:57 05/26/17 12:57 05/26/17 12:57 05/26/17 12:57 05/26/17 12:57 - Medications Medications: Current Medications Acetaminophen (Tylenol 650 Mg Supp) [address] Q6 PRN PRN Reason: Fever >100.4 F Last Admin: 05/11/17 04:50 Dose: 650 mg Acetylcysteine (Acetylcysteine 20%) 2 ml INH RBID [facility] Last Admin: 05/26/17 07:57 Dose: 2 ml Albuterol/Ipratropium (Duoneb 3 Mg/0.5 Mg (3 Ml) Ud) 3 ml INH RQID [facility] Last Admin: 05/26/17 15:41 Dose: 3 ml Aspirin (Aspirin Supp) [address] DAILY [facility] Last Admin: 05/25/17 09:37 Dose: Not Given Atorvastatin Calcium (Lipitor) 40 mg PO DAILY [facility] Last Admin: 05/26/17 09:15 Dose: Not Given Clopidogrel Bisulfate (Plavix) 75 mg PO DAILY [facility] Last Admin: 05/25/17 09:27 Dose: Not Given Enalaprilat (Vasotec Iv) 1.25 mg IV Q6 [facility] Last Admin: 05/26/17 09:24 Dose: 1.25 mg Enoxaparin Sodium (Lovenox) 40 mg SC DAILY [facility] PRN Reason: Protocol Last Admin: 05/26/17 09:24 Dose: 40 mg Hydralazine HCl (Apresoline) 10 mg IV Q6 PRN PRN Reason: Systolic Blood Pressure Last Admin: 05/25/17 18:52 Dose: 10 mg Hydralazine HCl (Apresoline) 10 mg IV Q8 [facility] Last Admin: 05/26/17 09:19 Dose: 10 mg Thiamine HCl 100 mg/ Sodium (Chloride) 101 mls @ 101 mls/hr IV DAILY [facility] Last Admin: 05/26/17 13:34 Dose: 101 mls/hr Lorazepam (Ativan) 1 mg IVP Q6 PRN PRN Reason: Agitation Last Admin: 05/21/17 01:06 Dose: 1 mg Morphine Sulfate (Morphine) 2 mg IVP Q6 PRN PRN Reason: Agitation Last Admin: 05/23/17 16:56 Dose: 2 mg Pantoprazole Sodium (Protonix Ec Tab) 40 mg PO DAILY [facility] Quetiapine Fumarate (Seroquel) 25 mg PO HS [facility] Last Admin: 05/03/17 22:55 Dose: Not Given - Labs Labs: 05/26/17 06:00 05/26/17 06:00 PT 12.8 Seconds (9.8-13.1) 05/26/17 06:00 INR 1.2 (0.9-1.2) 05/26/17 06:00 APTT 36.0 Seconds (25.6-37.1) 05/26/17 06:00 - Constitutional Appears: Non-toxic, No Acute Distress, Cachectic, Chronically Ill - Head Exam Head Exam: ATRAUMATIC, NORMAL INSPECTION, NORMOCEPHALIC - Eye Exam Eye Exam: EOMI, Normal appearance, PERRL Pupil Exam: NORMAL ACCOMODATION - ENT Exam ENT Exam: Mucous Membranes Moist, Normal Exam - Neck Exam Neck Exam: Normal Inspection - Respiratory Exam Respiratory Exam: Clear to Ausculation Bilateral, NORMAL BREATHING PATTERN. absent: Accessory Muscle Use, Rhonchi, Wheezes, Respiratory Distress - Cardiovascular Exam Cardiovascular Exam: REGULAR RHYTHM, RRR, +S1, +S2. absent: JVD - GI/Abdominal Exam GI & Abdominal Exam: Soft, Normal Bowel Sounds. absent: Distended, Guarding, Tenderness, Rebound - Rectal Exam Rectal Exam: Deferred - Extremities Exam Extremities Exam: Full ROM, Normal Capillary Refill, Normal Inspection. absent : Calf Tenderness, Pedal Edema - Neurological Exam Neurological Exam: Alert, Awake Neuro motor strength exam: Left Upper Extremity: 4, Right Upper Extremity: 5, Left Lower Extremity: 3, Right Lower Extremity: 5 Additional comments: oriented to place, self and person with some confusion at times - Psychiatric Exam Psychiatric exam: Normal Affect - Skin Skin Exam: Dry, Normal Color, Warm Assessment and Plan - Assessment and Plan (Free Text) Assessment: 56 y/o homeless male with PMHx significant for HTN, anemia, and EtOH abuse presented to ER with multiple falls and minor head trauma. He stated that he had been feeling 'off balance' and falling more over the past several days. Denied any focal weakness, but felt like both his feet were numb (this is ongoing, not new) and also c/o back pain (also chronic); he also felt off balance more lately as well. Patient has history of chronic ETOH use . CT head in ER showed Multiple bilateral lacunar infarcts and severe cortical atrophy. Patient admitted in telemetry for close monitoring. MRI head showed acute right MCA stroke Patient started on ASa, lovenox and statin. Neurology and PT consulted He developed DT-s and was started on gabapentin 300 mg PO TID , Seroquel and Ativan PRN Patient became more lethargic with dyarthria, dysphagia, left facial droop and left side weakness that progressed to flacid Repeat MRI of the head showed : Findings compatible with the known recent right basal ganglia infarct. No new areas of infarction seen. No MR evidence of associated hemorrhage. He developed acute hypoxemic respiratory failure on 05/09 likely due to Aspiration PNA, was intubated and transferred to ICU. Now he is extubated since 05/19 , saturating 99 % ,97 % in RA, maintaining his airway, less secretions Neurologically much better ,he is awake and alert , follows commands, moving right side of his body and also now able to move LUE 4/5 and LLE 3/5 that were flacid before Failed Modified Barium Swallow study twice, last one was performed 05/23 1. Acute Respiratory failure with Hypoxia sec to Aspiration Pneumonia-- improved Patient was intubated for more than 10 days in ICU .He did develop total opacification of left lung 05/09 due to aspiration pneumonia since patient could not handle his secretions and could not protect his airway . Extubated and doing well, maintaining his airway at present , saturating 99 % in RA Patient is improving neurologically Sputum cultures were positive for MRSA and Serratia Marcescen and patient received full course of meropenem and Vanco IV as per ID Afebrile, leukocytosis resolved keep head of the bed elevated aspiration precautions CXR showed improvement of left side infiltrates No need for bronchoscopy and trache at present Pulmonary on consult Continue herlinda 2. Acute Ischemic stroke - Right MCA distribution patient became lethargic with dysarthria, dysphagia, left facial droop and left side hemiparesis with stroke progression MRI of the head 04/28 : 1. Acute right MCA territory infarction involving the right narayanan radiata and basal ganglia. At present neurologically much improved,awake. alert with some confusion on and off, maintaining his airway , able to move LUE 4/5 , LLE 3/5, awake, alert and oriented , following commands and responding questions appropriately Started PT , OT and speech eval . Refused NGT placement so plavix and Statin on hold Pt on ASA rectal supp Failed again barium swallow eval 05/23 so GI re consulted for peg placement , Dr. Tolbert As per patient's wishes his eldest sister Michael is his surrogate decision maker.( He has been estranged from his daughter for the last 30 years so does not want his daughter to be his POA )This was established from prior conversations with patient and witnessed by nursing staff. Called sister Michael today [phone] and updated on patient's condition and progress as well as plan of care for peg placement. Sister will be available via phone ( she lives in [place]) to provide the necessary consents. Continue IVF for now Rehab placement as soon as we find an accepting facility Medicaid application ongoing 3.ETOH withdrawal/ Delirium tremens-- resolved patient was tachycardic, tremulous, confused with visual hallucinations on admission was initially Started on librium tapering dose-- discontinued due to sedation As per neurology who recommended to start patient on gabapentin and Seroquel HS that were discontinued due to lethargy Continue thiamine, folic acid, MVI and IVF Seizure precautions Ativan prn 4. HTN uncontrolled po meds on hold for now since patient failed swallow eval hydralazine IV RTC and Enalapril RTC 5.Thrombocytopenia improved 6.Hypokalemia, replace with Kcl runs as needed 7. Anemia of chronic disease resolved 8. Depression Pt told RN , he wants to kill himself Psych consulted- Psych rec Paxil and Risperdal - will start as soon as pt can have PO 8. DVT PPx Lovenox- hold in am, in case PEG can be placed in am
[2017-05-26] MEDS ORDERED: Potassium Ch 20mEq in D5-1/2NS 1,000 ML IV SCH (17:15)
[2017-05-27] MEDS: EnalaprilAT 1.25 mg/ml Inj IV SCH ×4 (04:00→22:00)
[2017-05-27 06:43] LABS: HEMATOCRIT 39.5 % (35.0-51.0); MEAN CELL VOLUME 99.5 fl (80.0-94.0); MEAN CORPUSCULAR HEMOGLOBIN 32.9 pg (27.0-31.0); MEAN CORPUSCULAR HGB CONC 33.1 g/dL (33.0-37.0); RED CELL DISTRIBUTION WIDTH 14.1 % (11.5-14.5)
[2017-05-27 07:49] LABS: BLOOD UREA NITROGEN 4 mg/dl (9-20); CHLORIDE 101 mmol/L (98-107); GFR AFRICAN-AMERICAN > 60; GLUCOSE,RANDOM 93 mg/dL (75-110); POTASSIUM 3.5 MMOL/L (3.6-5.0); SODIUM 134 mmol/l (132-148)
[2017-05-27 07:50] LABS: CALCIUM 8.8 mg/dL (8.4-10.2); CARBON DIOXIDE 22 mmol/L (22-30)
[2017-05-27] MEDS: Acetylcysteine 20% Inhal Soln (4ml) INH SCH ×2 (08:04→19:20)
[2017-05-27] MEDS: Albuterol-Ipratrop 3 mg / 0.5 (3 ml) UD INH SCH ×4 (08:04→19:20)
[2017-05-27] MEDS: Enoxaparin 40 mg Syringe SC SCH ×2 (08:58→10:00)
[2017-05-27] MEDS ORDERED: Pantoprazole 40 mg EC Tab PO SCH (09:00)
[2017-05-27] MEDS: Thiamine 100 MG in Sodium Chloride 0.9% 100 ML IV SCH (09:20)
--- NOTE | 2017-05-27 13:26 | CP.PCM.PN ---
Subjective - Date & Time of Evaluation Date of Evaluation: 05/27/17 Time of Evaluation: 10:00 - Subjective Subjective: Patient seen and examined bedside. Lying in bed comfortable in NAD. Hemodynamically stable, afebrile No acute issues overnight He is awake, alert to place and person , follows commands. With some confusion at times Moving his left side Objective - Vital Signs/Intake and Output Vital Signs (last 24 hours): Temp Pulse Resp BP Pulse Ox 98.7 F 73 20 151/89 H 98 05/27/17 12:00 05/27/17 12:00 05/27/17 12:00 05/27/17 12:00 05/27/17 12:00 Intake and Output: 05/27/17 05/27/17 06:59 18:59 Intake Total 1110 Balance 1110 - Medications Medications: Current Medications Acetaminophen (Tylenol 650 Mg Supp) 650 mg [place] Q6 PRN PRN Reason: Fever >100.4 F Last Admin: 05/11/17 04:50 Dose: 650 mg Acetylcysteine (Acetylcysteine 20%) 2 ml INH RBID [facility] Last Admin: 05/27/17 08:04 Dose: 2 ml Albuterol/Ipratropium (Duoneb 3 Mg/0.5 Mg (3 Ml) Ud) 3 ml INH RQID [facility] Last Admin: 05/27/17 11:28 Dose: 3 ml Aspirin (Aspirin Supp) 300 mg PA DAILY [facility] Last Admin: 05/27/17 10:00 Dose: 300 mg Atorvastatin Calcium (Lipitor) 40 mg PO DAILY [facility] Last Admin: 05/27/17 08:57 Dose: Not Given Clopidogrel Bisulfate (Plavix) 75 mg PO DAILY [facility] Last Admin: 05/25/17 09:27 Dose: Not Given Enalaprilat (Vasotec Iv) 1.25 mg IV Q6 [facility] Last Admin: 05/27/17 10:43 Dose: 1.25 mg Enoxaparin Sodium (Lovenox) 40 mg SC DAILY [facility] PRN Reason: Protocol Last Admin: 05/27/17 10:00 Dose: 40 mg Hydralazine HCl (Apresoline) 10 mg IV Q6 PRN PRN Reason: Systolic Blood Pressure Last Admin: 05/25/17 18:52 Dose: 10 mg Hydralazine HCl (Apresoline) 10 mg IV Q8 [facility] Last Admin: 05/27/17 09:19 Dose: 10 mg Thiamine HCl 100 mg/ Sodium (Chloride) 101 mls @ 101 mls/hr IV DAILY [facility] Last Admin: 05/27/17 09:20 Dose: 101 mls/hr Potassium Chloride/Dextrose/Sod Cl (Potassium Chl 20 Meq In D5-1/2ns) 1,000 mls @ 80 mls/hr IV .[id number] [facility] Stop: 05/27/17 17:11 Last Admin: 05/26/17 18:17 Dose: 80 mls/hr Lorazepam (Ativan) 1 mg IVP Q6 PRN PRN Reason: Agitation Last Admin: 05/21/17 01:06 Dose: 1 mg Morphine Sulfate (Morphine) 2 mg IVP Q6 PRN PRN Reason: Agitation Last Admin: 05/23/17 16:56 Dose: 2 mg Pantoprazole Sodium (Protonix Inj) 40 mg IVP DAILY [facility] Last Admin: 05/27/17 09:19 Dose: 40 mg Quetiapine Fumarate (Seroquel) 25 mg PO HS [facility] Last Admin: 05/03/17 22:55 Dose: Not Given - Labs Labs: 05/27/17 05:30 05/27/17 05:30 PT 12.8 Seconds (9.8-13.1) 05/26/17 06:00 INR 1.2 (0.9-1.2) 05/26/17 06:00 APTT 36.0 Seconds (25.6-37.1) 05/26/17 06:00 - Constitutional Appears: Non-toxic, No Acute Distress, Cachectic, Chronically Ill - Head Exam Head Exam: ATRAUMATIC, NORMAL INSPECTION, NORMOCEPHALIC - Eye Exam Eye Exam: EOMI, Normal appearance, PERRL Pupil Exam: NORMAL ACCOMODATION - ENT Exam ENT Exam: Mucous Membranes Dry, Normal Exam - Neck Exam Neck Exam: Full ROM, Normal Inspection - Respiratory Exam Respiratory Exam: Clear to Ausculation Bilateral, NORMAL BREATHING PATTERN. absent: Accessory Muscle Use, Prolonged Expiratory Phase, Rhonchi, Wheezes, Respiratory Distress - Cardiovascular Exam Cardiovascular Exam: REGULAR RHYTHM, RRR, +S1, +S2. absent: JVD - GI/Abdominal Exam GI & Abdominal Exam: Soft, Normal Bowel Sounds. absent: Distended, Guarding, Rebound - Rectal Exam Rectal Exam: Deferred - Extremities Exam Extremities Exam: Full ROM, Normal Capillary Refill, Normal Inspection. absent : Pedal Edema - Neurological Exam Neurological Exam: Alert, Awake Neuro motor strength exam: Left Upper Extremity: 5, Right Upper Extremity: 5, Left Lower Extremity: 3, Right Lower Extremity: 5 Additional comments: left facial droop dysarthria dysphagia oriented to place, self , person, answering questions appropriately, follows command - Psychiatric Exam Psychiatric exam: Flat Affect - Skin Skin Exam: Dry, Intact, Normal Color, Warm Assessment and Plan - Assessment and Plan (Free Text) Assessment: 56 y/o homeless male with PMHx significant for HTN, anemia, and EtOH abuse presented to ER with multiple falls and minor head trauma. He stated that he had been feeling 'off balance' and falling more over the past several days. Denied any focal weakness, but felt like both his feet were numb (this is ongoing, not new) and also c/o back pain (also chronic); he also felt off balance more lately as well. Patient has history of chronic ETOH use . CT head in ER showed Multiple bilateral lacunar infarcts and severe cortical atrophy. Patient admitted in telemetry for close monitoring. MRI head showed acute right MCA stroke Patient started on ASa, lovenox and statin. Neurology and PT consulted He developed DT-s and was started on gabapentin 300 mg PO TID , Seroquel and Ativan PRN Patient became more lethargic with dyarthria, dysphagia, left facial droop and left side weakness that progressed to flacid Repeat MRI of the head showed : Findings compatible with the known recent right basal ganglia infarct. No new areas of infarction seen. No MR evidence of associated hemorrhage. He developed acute hypoxemic respiratory failure on 05/09 likely due to Aspiration PNA, was intubated and transferred to ICU. Now he is extubated since 05/19 , saturating 99 % ,97 % in RA, maintaining his airway, less secretions Neurologically much better ,he is awake and alert , follows commands, moving right side of his body and also now able to move LUE 5/5 and LLE 3/5 that were flacid before Failed Modified Barium Swallow study twice, last one was performed 05/23 . NPO on IVF since extubation since patient refusing NGT placement 1. Acute Respiratory failure with Hypoxia sec to Aspiration Pneumonia-- improved Patient was intubated for more than 10 days in ICU .He did develop total opacification of left lung 05/09 due to aspiration pneumonia since patient could not handle his secretions and could not protect his airway . Extubated and doing well, maintaining his airway at present , saturating 99 % in RA Patient is improving neurologically Sputum cultures were positive for MRSA and Serratia Marcescen and patient received full course of meropenem and Vanco IV as per ID Afebrile, leukocytosis resolved keep head of the bed elevated aspiration precautions CXR showed improvement of left side infiltrates No need for bronchoscopy and trache at present Pulmonary on consult Continue preetionerene 2. Acute Ischemic stroke - Right MCA distribution patient became lethargic with dysarthria, dysphagia, left facial droop and left side hemiparesis with stroke progression MRI of the head 04/28 : 1. Acute right MCA territory infarction involving the right narayanan radiata and basal ganglia. At present neurologically much improved,awake. alert with some confusion on and off, maintaining his airway , able to move LUE 4/5 , LLE 3/5, awake, alert and oriented , following commands and responding questions appropriately Started PT , OT and speech eval . Refused NGT placement so plavix and Statin on hold Pt on ASA rectal supp Failed again barium swallow eval 05/23 so GI re consulted for peg placement , Dr. Tolbert As per patient's wishes his eldest sister Michael is his surrogate decision maker.( He has been estranged from his daughter for the last 30 years so does not want his daughter to be his POA )This was established from prior conversations with patient and witnessed by nursing staff. Called sister Michael [phone] and updated on patient's condition and progress as well as plan of care for peg placement. Sister will be available via phone ( she lives in [place]) to provide the necessary consents.sister agrees with plan for peg placement Continue IVF for now Will be scheduled for peg placement on 05/31 as per GI Rehab placement as soon as we find an accepting facility Medicaid application ongoing 3.ETOH withdrawal/ Delirium tremens-- resolved patient was tachycardic, tremulous, confused with visual hallucinations on admission was initially Started on librium tapering dose-- discontinued due to sedation As per neurology who recommended to start patient on gabapentin and Seroquel HS that were discontinued due to lethargy Continue thiamine, folic acid, MVI and IVF Seizure precautions Ativan prn 4. HTN uncontrolled po meds on hold for now since patient failed swallow eval hydralazine IV RTC and Enalapril RTC 5.Thrombocytopenia improved 6.Hypokalemia, replace with Kcl runs as needed 7. Anemia of chronic disease resolved 8. Depression Pt told RN , he wants to kill himself Psych consulted- Psych rec Paxil and Risperdal - will start as soon as pt can have PO 8. DVT PPx Lovenox
--- NOTE | 2017-05-27 14:11 | CP.PCM.PN ---
<Nati Glover - Last Filed: 05/27/17 14:15> Subjective - Date & Time of Evaluation Date of Evaluation: 05/27/17 Time of Evaluation: 08:00 - Subjective Subjective: PGY4 GI Follow-up Pt seen and examined bedside Able to answer most question appropriately, though sometimes confused Denies any CP, SOB, or abd pain NPO since extubation ROS: 10 point ROS was neg except chronic back pain Objective - Vital Signs/Intake and Output Vital Signs (last 24 hours): Temp Pulse Resp BP Pulse Ox 98.7 F 73 20 151/89 H 98 05/27/17 12:00 05/27/17 12:00 05/27/17 12:00 05/27/17 12:00 05/27/17 12:00 Intake and Output: 05/27/17 05/27/17 06:59 18:59 Intake Total 1110 Balance 1110 - Medications Medications: Current Medications Acetaminophen (Tylenol 650 Mg Supp) 650 mg NV Q6 PRN PRN Reason: Fever >100.4 F Last Admin: 05/11/17 04:50 Dose: 650 mg Acetylcysteine (Acetylcysteine 20%) 2 ml INH RBID [facility] Last Admin: 05/27/17 08:04 Dose: 2 ml Albuterol/Ipratropium (Duoneb 3 Mg/0.5 Mg (3 Ml) Ud) 3 ml INH RQID [facility] Last Admin: 05/27/17 11:28 Dose: 3 ml Aspirin (Aspirin Supp) 300 mg NV DAILY [facility] Last Admin: 05/27/17 10:00 Dose: 300 mg Atorvastatin Calcium (Lipitor) 40 mg PO DAILY [facility] Last Admin: 05/27/17 08:57 Dose: Not Given Clopidogrel Bisulfate (Plavix) 75 mg PO DAILY [facility] Last Admin: 05/25/17 09:27 Dose: Not Given Enalaprilat (Vasotec Iv) 1.25 mg IV Q6 [facility] Last Admin: 05/27/17 10:43 Dose: 1.25 mg Enoxaparin Sodium (Lovenox) 40 mg SC DAILY [facility] PRN Reason: Protocol Last Admin: 05/27/17 10:00 Dose: 40 mg Hydralazine HCl (Apresoline) 10 mg IV Q6 PRN PRN Reason: Systolic Blood Pressure Last Admin: 05/25/17 18:52 Dose: 10 mg Hydralazine HCl (Apresoline) 10 mg IV Q8 [facility] Last Admin: 05/27/17 09:19 Dose: 10 mg Thiamine HCl 100 mg/ Sodium (Chloride) 101 mls @ 101 mls/hr IV DAILY [facility] Last Admin: 05/27/17 09:20 Dose: 101 mls/hr Potassium Chloride/Dextrose/Sod Cl (Potassium Chl 20 Meq In D5-1/2ns) 1,000 mls @ 80 mls/hr IV .[id number] [facility] Stop: 05/27/17 17:11 Last Admin: 05/26/17 18:17 Dose: 80 mls/hr Lorazepam (Ativan) 1 mg IVP Q6 PRN PRN Reason: Agitation Last Admin: 05/21/17 01:06 Dose: 1 mg Morphine Sulfate (Morphine) 2 mg IVP Q6 PRN PRN Reason: Agitation Last Admin: 05/23/17 16:56 Dose: 2 mg Pantoprazole Sodium (Protonix Inj) 40 mg IVP DAILY [facility] Last Admin: 05/27/17 09:19 Dose: 40 mg Quetiapine Fumarate (Seroquel) 25 mg PO HS [facility] Last Admin: 05/03/17 22:55 Dose: Not Given - Labs Labs: 05/27/17 05:30 05/27/17 05:30 PT 12.8 Seconds (9.8-13.1) 05/26/17 06:00 INR 1.2 (0.9-1.2) 05/26/17 06:00 APTT 36.0 Seconds (25.6-37.1) 05/26/17 06:00 - Constitutional Appears: Cachectic, Chronically Ill - Head Exam Head Exam: ATRAUMATIC, NORMOCEPHALIC - Eye Exam Eye Exam: Normal appearance - ENT Exam ENT Exam: Mucous Membranes Moist - Respiratory Exam Respiratory Exam: Clear to Ausculation Bilateral, NORMAL BREATHING PATTERN. absent: Rales, Rhonchi, Wheezes, Respiratory Distress - Cardiovascular Exam Cardiovascular Exam: REGULAR RHYTHM, +S1, +S2 - GI/Abdominal Exam GI & Abdominal Exam: Soft, Normal Bowel Sounds. absent: Tenderness, Diminished Bowel Sounds - Neurological Exam Neurological Exam: Alert, Altered, Awake - Psychiatric Exam Psychiatric exam: Agitated, Anxious, Normal Affect - Skin Skin Exam: Dry, Intact, Normal Color, Warm Assessment and Plan - Assessment and Plan (Free Text) Assessment: This is a 56yM with a hx of alcohol abuse, HTN, CBP s/p fall and found to have a Acute CVA with left sided weakness, dysarthria and dysphagia. Request for PEG tube placement. Repeat modified barium swallow failed on 05/23. Dyphagia with aspiration due to CVA Respiratory failure s/p extubation Aspiration PNA Acute CVA- Right Basal ganglia, narayanan radiata infarct Macrocytic Anemia ETOH abuse/dependence s/p DTs Plan: Plan: -spoke to niurka (sister) [phone] and she consents to the procedure -Risks explained to the sister including bleeding, infection and intubation; sister understands risk and verbalized consent. -Will place the Peg on 05/31 -continue abx as per ID -continue aspiration precautions -continue antiplat as per Neuro and primary team D/W [facility] Tolbert [facility] Last Filed: 05/27/17 18:08> Objective - Vital Signs/Intake and Output Vital Signs (last 24 hours): Temp Pulse Resp BP Pulse Ox 97.2 F L 74 20 143/74 98 05/27/17 15:33 05/27/17 17:52 05/27/17 15:33 05/27/17 17:52 05/27/17 15:33 Intake and Output: 05/27/17 05/27/17 06:59 18:59 Intake Total 1110 1000 Balance 1110 1000 - Medications Medications: Current Medications Acetaminophen (Tylenol 650 Mg Supp) 650 mg NV Q6 PRN PRN Reason: Fever >100.4 F Last Admin: 05/11/17 04:50 Dose: 650 mg Acetylcysteine (Acetylcysteine 20%) 2 ml INH RBID [facility] Last Admin: 05/27/17 08:04 Dose: 2 ml Albuterol/Ipratropium (Duoneb 3 Mg/0.5 Mg (3 Ml) Ud) 3 ml INH RQID [facility] Last Admin: 05/27/17 15:30 Dose: 3 ml Aspirin (Aspirin Supp) 300 mg NV DAILY [facility] Last Admin: 05/27/17 10:00 Dose: 300 mg Atorvastatin Calcium (Lipitor) 40 mg PO DAILY [facility] Last Admin: 05/27/17 08:57 Dose: Not Given Clopidogrel Bisulfate (Plavix) 75 mg PO DAILY [facility] Last Admin: 05/25/17 09:27 Dose: Not Given Enalaprilat (Vasotec Iv) 1.25 mg IV Q6 [facility] Last Admin: 05/27/17 16:20 Dose: 1.25 mg Enoxaparin Sodium (Lovenox) 40 mg SC DAILY [facility] PRN Reason: Protocol Last Admin: 05/27/17 10:00 Dose: 40 mg Hydralazine HCl (Apresoline) 10 mg IV Q6 PRN PRN Reason: Systolic Blood Pressure Last Admin: 05/25/17 18:52 Dose: 10 mg Hydralazine HCl (Apresoline) 10 mg IV Q8 [facility] Last Admin: 05/27/17 17:52 Dose: 10 mg Thiamine HCl 100 mg/ Sodium (Chloride) 101 mls @ 101 mls/hr IV DAILY [facility] Last Admin: 05/27/17 09:20 Dose: 101 mls/hr Lorazepam (Ativan) 1 mg IVP Q6 PRN PRN Reason: Agitation Last Admin: 05/21/17 01:06 Dose: 1 mg Morphine Sulfate (Morphine) 2 mg IVP Q6 PRN PRN Reason: Agitation Last Admin: 05/23/17 16:56 Dose: 2 mg Pantoprazole Sodium (Protonix Inj) 40 mg IVP DAILY [facility] Last Admin: 05/27/17 09:19 Dose: 40 mg Quetiapine Fumarate (Seroquel) 25 mg PO HS [facility] Last Admin: 05/03/17 22:55 Dose: Not Given - Labs Labs: 05/27/17 05:30 05/27/17 05:30 PT 12.8 Seconds (9.8-13.1) 05/26/17 06:00 INR 1.2 (0.9-1.2) 05/26/17 06:00 APTT 36.0 Seconds (25.6-37.1) 05/26/17 06:00 Attending/Attestation - Attestation I have personally seen and examined this patient.: Yes I have fully participated in the care of the patient.: Yes I have reviewed all pertinent clinical information, including history, physical exam and plan: Yes Notes (Text): 05/27/17 18:04 This is a 56 yr old M with a hx of alcohol abuse, HTN, CBP s/p fall and found to have a Acute CVA with left sided weakness, dysarthria and dysphagia. Request for PEG tube placement. Repeat modified barium swallow failed on 05/23. Discussed in detail with Niurka (sister) [phone] and she consents to the procedure. Had discussion regarding risks including but not limited to bleeding , infection, perforation and intubation; sister understands risk and verbalized consent. Will schedule the Peg for 05/31. Continue abx as per ID. Continue aspiration precautions. Continue antiplatelet as per Neuro and primary team
[2017-05-27] MEDS: Potassium Chl 20 mEq in D5-NS 1,000 ML IV SCH (21:39)
[2017-05-28] MEDS: EnalaprilAT 1.25 mg/ml Inj IV SCH ×4 (05:07→21:53)
[2017-05-28] MEDS: Acetylcysteine 20% Inhal Soln (4ml) INH SCH ×2 (07:35→19:34)
[2017-05-28] MEDS: Albuterol-Ipratrop 3 mg / 0.5 (3 ml) UD INH SCH ×4 (07:37→19:34)
[2017-05-28] MEDS: Enoxaparin 40 mg Syringe SC SCH (10:12)
[2017-05-28] MEDS: Thiamine 100 MG in Sodium Chloride 0.9% 100 ML IV SCH (10:14)
[2017-05-28] MEDS: Potassium Chl 20 mEq in D5-NS 1,000 ML IV SCH (11:27)
--- NOTE | 2017-05-28 11:47 | CP.PCM.PN ---
Subjective - Date & Time of Evaluation Date of Evaluation: 05/28/17 Time of Evaluation: 11:30 - Subjective Subjective: No fever Pt is alert, oriented to person and place follows commands Left sided weakness getting better Pt dneies CP no SOB no abd pain Objective - Vital Signs/Intake and Output Vital Signs (last 24 hours): Temp Pulse Resp BP Pulse Ox 97.6 F 70 18 158/78 H 98 05/28/17 09:00 05/28/17 10:11 05/28/17 09:00 05/28/17 10:13 05/28/17 09:00 Intake and Output: 05/28/17 05/28/17 06:59 18:59 Intake Total 1060 Balance 1060 - Medications Medications: Current Medications Acetaminophen (Tylenol 650 Mg Supp) 650 mg [place] Q6 PRN PRN Reason: Fever >100.4 F Last Admin: 05/11/17 04:50 Dose: 650 mg Acetylcysteine (Acetylcysteine 20%) 2 ml INH RBID [facility] Last Admin: 05/28/17 07:35 Dose: 2 ml Albuterol/Ipratropium (Duoneb 3 Mg/0.5 Mg (3 Ml) Ud) 3 ml INH RQID [facility] Last Admin: 05/28/17 11:13 Dose: 3 ml Aspirin (Aspirin Supp) 300 mg PA DAILY [facility] Last Admin: 05/28/17 10:11 Dose: Not Given Atorvastatin Calcium (Lipitor) 40 mg PO DAILY [facility] Last Admin: 05/28/17 10:12 Dose: 40 mg Clopidogrel Bisulfate (Plavix) 75 mg PO DAILY [facility] Last Admin: 05/25/17 09:27 Dose: Not Given Enalaprilat (Vasotec Iv) 1.25 mg IV Q6 [facility] Last Admin: 05/28/17 10:13 Dose: 1.25 mg Enoxaparin Sodium (Lovenox) 40 mg SC DAILY [facility] PRN Reason: Protocol Last Admin: 05/28/17 10:12 Dose: 40 mg Hydralazine HCl (Apresoline) 10 mg IV Q6 PRN PRN Reason: Systolic Blood Pressure Last Admin: 05/25/17 18:52 Dose: 10 mg Hydralazine HCl (Apresoline) 10 mg IV Q8 [facility] Last Admin: 05/28/17 10:11 Dose: 10 mg Thiamine HCl 100 mg/ Sodium (Chloride) 101 mls @ 101 mls/hr IV DAILY [facility] Last Admin: 05/28/17 10:14 Dose: 101 mls/hr Potassium Chloride/Dextrose/Sod Cl (Potassium Chl 20 Meq In D5-Ns) 1,000 mls @ 80 mls/hr IV .[id number] [facility] Last Admin: 05/28/17 11:27 Dose: 80 mls/hr Lorazepam (Ativan) 1 mg IVP Q6 PRN PRN Reason: Agitation Last Admin: 05/21/17 01:06 Dose: 1 mg Morphine Sulfate (Morphine) 2 mg IVP Q6 PRN PRN Reason: Agitation Last Admin: 05/23/17 16:56 Dose: 2 mg Pantoprazole Sodium (Protonix Inj) 40 mg IVP DAILY [facility] Last Admin: 05/28/17 10:13 Dose: 40 mg Quetiapine Fumarate (Seroquel) 25 mg PO HS [facility] Last Admin: 05/03/17 22:55 Dose: Not Given - Labs Labs: 05/27/17 05:30 05/27/17 05:30 PT 12.8 Seconds (9.8-13.1) 05/26/17 06:00 INR 1.2 (0.9-1.2) 05/26/17 06:00 APTT 36.0 Seconds (25.6-37.1) 05/26/17 06:00 - Constitutional Appears: Unkempt, Older Than Stated Age, Cachectic, Chronically Ill Not in distress - Head Exam Head Exam: NORMAL INSPECTION, NORMOCEPHALIC - Eye Exam Eye Exam: EOMI, Normal appearance Pupil Exam: NORMAL ACCOMODATION - ENT Exam ENT Exam: Mucous Membranes Dry, Normal External Ear Exam - Neck Exam Neck Exam: Full ROM. absent: Meningismus - Respiratory Exam Respiratory Exam: Rales, Rhonchi. absent: Wheezes - Cardiovascular Exam Cardiovascular Exam: REGULAR RHYTHM, +S1, +S2 - GI/Abdominal Exam GI & Abdominal Exam: Soft, Normal Bowel Sounds. absent: Tenderness - Extremities Exam Extremities Exam: Normal Capillary Refill. absent: Calf Tenderness, Pedal Edema - Neurological Exam Neurological Exam: Alert, Awake Additional comments: oriented to person and place follows commands moves RUE and RLE 5/5 noted to be able to move LUE with gravity though weaker than R 4/5 LLE 3/5 - Psychiatric Exam Psychiatric exam: Flat Affect - Skin Skin Exam: Dry, Normal Color, Warm Assessment and Plan - Assessment and Plan (Free Text) Assessment: 56 y/o homeless male with PMHx significant for HTN, anemia, and EtOH abuse presented to ER with multiple falls and minor head trauma. He stated that he had been feeling 'off balance' and falling more over the past several days. CT head : showed Multiple bilateral lacunar infarcts and severe cortical atrophy. Patient admitted in telemetry for close monitoring. MRI head showed acute right MCA stroke. Patient started on ASA, lovenox and statin. Neurology and PT consulted He developed DT-s and was started on gabapentin 300 mg PO TID , Seroquel and Ativan PRN Patient became more lethargic with dyarthria, dysphagia, left facial droop and left side weakness that progressed to flaccidity. Repeat MRI of the head : Findings compatible with the known recent right basal ganglia infarct. No new areas of infarction seen. No MR evidence of associated hemorrhage. He developed acute hypoxemic respiratory failure on 05/09 likely due to Aspiration PNA, was intubated and transferred to ICU. Now he is extubated since 05/19 , saturating 99 % ,97 % in RA, maintaining his airway, less secretions Neurologically much better ,he is awake and alert , follows commands, moving right side of his body and also now able to move LUE 4/5 and LLE 3/5 that were flaccid before Failed Modified Barium Swallow study twice, last one was performed 05/23 . NPO on IVF since extubation since patient refusing NGT placement. 1. Acute Respiratory failure with Hypoxia sec to Aspiration Pneumonia-- improved Patient was intubated for more than 10 days in ICU .He did develop total opacification of left lung 05/09 due to aspiration pneumonia since patient could not handle his secretions and could not protect his airway . Extubated and doing well, maintaining his airway at present , saturating 99 % in RA Patient is improving neurologically Sputum cultures were positive for MRSA and Serratia Marcescen and patient received full course of meropenem and Vanco IV as per ID Afebrile, leukocytosis resolved keep head of the bed elevated aspiration precautions CXR showed improvement of left side infiltrates No need for bronchoscopy and trach at present Pulmonary on consult Continue duonerene 2. Acute Ischemic stroke - Right MCA distribution patient became lethargic with dysarthria, dysphagia, left facial droop and left side hemiparesis with stroke progression MRI of the head 04/28 : 1. Acute right MCA territory infarction involving the right narayanan radiata and basal ganglia. At present neurologically much improved,awake. alert with some confusion on and off, maintaining his airway , able to move LUE 4/5 , LLE 3/5, awake, alert and oriented , following commands and responding questions appropriately Started PT , OT and speech eval . Refused NGT placement so plavix and Statin on hold Pt on ASA rectal supp Failed again barium swallow eval 05/23 so GI re consulted for PEG placement , Dr. Tolbert As per patient's wishes his eldest sister Michael is his surrogate decision maker.( He has been estranged from his daughter for the last 30 years so does not want his daughter to be his POA ). This was established from prior conversations with patient and witnessed by nursing staff. Called sister Michael [phone] and updated on patient's condition and progress as well as plan of care for peg placement. Sister will be available via phone ( she lives in [place]) to provide the necessary consents, sister agrees with plan for PEG placement Continue IVF for now Will be scheduled for PEG placement on 05/31 as per GI Rehab placement as soon as we find an accepting facility Medicaid application ongoing 3.ETOH withdrawal/ Delirium tremens-- resolved patient was tachycardic, tremulous, confused with visual hallucinations on admission was initially Started on librium tapering dose Neurology rec Seroquel HS Continue thiamine, folic acid, MVI and IVF Seizure precautions Ativan prn 4. HTN uncontrolled po meds on hold for now since patient failed swallow eval hydralazine IV RTC and Enalapril IV RTC Increase Hydralazine to q 6 5.Thrombocytopenia improved 6.Hypokalemia, replace with Kcl runs as needed 7. Anemia of chronic disease resolved 8. Depression Pt told RN , he wants to kill himself Psych consulted- Psych rec Paxil and Risperdal - will start as soon as pt can have PO 8. DVT PPx Lovenox
[2017-05-29] MEDS: Potassium Chl 20 mEq in D5-NS 1,000 ML IV SCH ×2 (00:42→15:32)
[2017-05-29] MEDS: EnalaprilAT 1.25 mg/ml Inj IV SCH ×4 (04:29→21:32)
[2017-05-29] MEDS: Albuterol-Ipratrop 3 mg / 0.5 (3 ml) UD INH SCH ×4 (07:26→19:07)
[2017-05-29] MEDS: Acetylcysteine 20% Inhal Soln (4ml) INH SCH ×2 (07:27→19:07)
[2017-05-29] MEDS: Enoxaparin 40 mg Syringe SC SCH (09:14)
[2017-05-29] MEDS: Thiamine 100 MG in Sodium Chloride 0.9% 100 ML IV SCH (09:17)
--- NOTE | 2017-05-29 11:02 | CP.PCM.PN ---
Subjective - Date & Time of Evaluation Date of Evaluation: 05/29/17 Time of Evaluation: 10:00 - Subjective Subjective: No fever wants to eat no cough denies CP no abd pain left sided weakness has improved occ episodes of confusion but otherwise is oriented to person and place Objective - Vital Signs/Intake and Output Vital Signs (last 24 hours): Temp Pulse Resp BP Pulse Ox 97.5 F L 74 20 158/84 H 97 05/29/17 09:00 05/29/17 09:17 05/29/17 09:00 05/29/17 09:17 05/29/17 09:00 Intake and Output: 05/29/17 05/29/17 06:59 18:59 Intake Total 880 Output Total 700 Balance 180 - Medications Medications: Current Medications Acetaminophen (Tylenol 650 Mg Supp) 650 mg [place] Q6 PRN PRN Reason: Fever >100.4 F Last Admin: 05/11/17 04:50 Dose: 650 mg Acetylcysteine (Acetylcysteine 20%) 2 ml INH RBID [facility] Last Admin: 05/29/17 07:27 Dose: Not Given Albuterol/Ipratropium (Duoneb 3 Mg/0.5 Mg (3 Ml) Ud) 3 ml INH RQID [facility] Last Admin: 05/29/17 07:26 Dose: 3 ml Aspirin (Aspirin Supp) 300 mg [place] DAILY [facility] Last Admin: 05/29/17 09:12 Dose: Not Given Atorvastatin Calcium (Lipitor) 40 mg PO DAILY [facility] Last Admin: 05/29/17 09:14 Dose: Not Given Clonidine HCl (Catapres Tts1 0.1 Mg/24 Hr) 1 patch TD Q7D [facility] Last Admin: 05/29/17 09:17 Dose: 1 patch Clopidogrel Bisulfate (Plavix) 75 mg PO DAILY [facility] Last Admin: 05/25/17 09:27 Dose: Not Given Enalaprilat (Vasotec Iv) 1.25 mg IV Q6 [facility] Last Admin: 05/29/17 04:29 Dose: 1.25 mg Enoxaparin Sodium (Lovenox) 40 mg SC DAILY [facility] PRN Reason: Protocol Last Admin: 05/29/17 09:14 Dose: 40 mg Hydralazine HCl (Apresoline) 10 mg IV Q6 PRN PRN Reason: Systolic Blood Pressure Last Admin: 05/25/17 18:52 Dose: 10 mg Hydralazine HCl (Apresoline) 10 mg IV Q8 [facility] Last Admin: 05/29/17 09:13 Dose: 10 mg Thiamine HCl 100 mg/ Sodium (Chloride) 101 mls @ 101 mls/hr IV DAILY [facility] Last Admin: 05/29/17 09:17 Dose: 101 mls/hr Potassium Chloride/Dextrose/Sod Cl (Potassium Chl 20 Meq In D5-Ns) 1,000 mls @ 80 mls/hr IV .[id number] [facility] Last Admin: 05/29/17 00:42 Dose: 80 mls/hr Lorazepam (Ativan) 1 mg IVP Q6 PRN PRN Reason: Agitation Last Admin: 05/21/17 01:06 Dose: 1 mg Morphine Sulfate (Morphine) 2 mg IVP Q6 PRN PRN Reason: Agitation Last Admin: 05/23/17 16:56 Dose: 2 mg Pantoprazole Sodium (Protonix Inj) 40 mg IVP DAILY [facility] Last Admin: 05/29/17 09:14 Dose: 40 mg Quetiapine Fumarate (Seroquel) 25 mg PO HS [facility] Last Admin: 05/03/17 22:55 Dose: Not Given - Labs Labs: 05/27/17 05:30 05/27/17 05:30 PT 12.8 Seconds (9.8-13.1) 05/26/17 06:00 INR 1.2 (0.9-1.2) 05/26/17 06:00 APTT 36.0 Seconds (25.6-37.1) 05/26/17 06:00 - Constitutional Appears: Unkempt, Older Than Stated Age, Cachectic, Chronically Ill Not in distress - Head Exam Head Exam: NORMAL INSPECTION, NORMOCEPHALIC - Eye Exam Eye Exam: EOMI, Normal appearance Pupil Exam: NORMAL ACCOMMODATION - ENT Exam ENT Exam: Mucous Membranes Dry, Normal External Ear Exam - Neck Exam Neck Exam: Full ROM. absent: Meningismus - Respiratory Exam Respiratory Exam: Rales, Rhonchi. absent: Wheezes - Cardiovascular Exam Cardiovascular Exam: REGULAR RHYTHM, +S1, +S2 - GI/Abdominal Exam GI & Abdominal Exam: Soft, Normal Bowel Sounds. absent: Tenderness - Extremities Exam Extremities Exam: Normal Capillary Refill. absent: Calf Tenderness, Pedal Edema - Neurological Exam Neurological Exam: Alert, Awake Additional comments: oriented to person and place follows commands moves RUE and RLE 5/5 noted to be able to move LUE with gravity though weaker than R 4/5 LLE 3/5 - Psychiatric Exam Psychiatric exam: Flat Affect - Skin Skin Exam: Dry, Normal Color, Warm Assessment and Plan - Assessment and Plan (Free Text) Assessment: 56 y/o homeless male with PMHx significant for HTN, anemia, and EtOH abuse presented to ER with multiple falls and minor head trauma. He stated that he had been feeling 'off balance' and falling more over the past several days. CT head : showed Multiple bilateral lacunar infarcts and severe cortical atrophy. Patient admitted in telemetry for close monitoring. MRI head showed acute right MCA stroke. Patient started on ASA, lovenox and statin. Neurology and PT consulted He developed DT-s and was started on gabapentin 300 mg PO TID , Seroquel and Ativan PRN Patient became more lethargic with dyarthria, dysphagia, left facial droop and left side weakness that progressed to flaccidity. Repeat MRI of the head : Findings compatible with the known recent right basal ganglia infarct. No new areas of infarction seen. No MR evidence of associated hemorrhage. He developed acute hypoxemic respiratory failure on 05/09 likely due to Aspiration PNA, was intubated and transferred to ICU. Now he is extubated since 05/19 , saturating 99 % ,97 % in RA, maintaining his airway, less secretions Neurologically much better ,he is awake and alert , follows commands, now able to move LUE 4/5 and LLE 3/5 that were flaccid before Failed Modified Barium Swallow study twice, last one was performed 05/23 . NPO on IVF since extubation since patient refusing NGT placement. 1. Acute Respiratory failure with Hypoxia sec to Aspiration Pneumonia-- improved Patient was intubated for more than 10 days in ICU. He had total opacification of left lung 05/09 due to aspiration pneumonia since patient could not handle his secretions and could not protect his airway . Extubated and doing well, maintaining his airway at present , saturating 99 % in RA Patient is improving neurologically Sputum cultures were positive for MRSA and Serratia Marcescen and patient received full course of meropenem and Vanco IV as per ID Afebrile, leukocytosis resolved keep head of the bed elevated aspiration precautions CXR showed improvement of left side infiltrates No need for bronchoscopy and trach as discussed with Dr Meli pate 2. Acute Ischemic stroke - Right MCA distribution patient became lethargic with dysarthria, dysphagia, left facial droop and left side hemiparesis with stroke progression MRI of the head 04/28 : 1. Acute right MCA territory infarction involving the right narayanan radiata and basal ganglia. At present neurologically much improved,awake. alert with some confusion on and off, maintaining his airway , able to move LUE 4/5 , LLE 3/5, awake, alert and oriented , following commands and responding questions appropriately Started PT , OT and speech eval . Refused NGT placement so plavix and Statin on hold Pt on ASA rectal supp (on hold in prep for PEG placement on Tuesday) Failed again Modified Barium swallow eval on 05/23 so GI re consulted for PEG placement , Dr. Tolbert As per patient's wishes his eldest sister Michael is his surrogate decision maker.( He has been estranged from his daughter for the last 30 years so does not want his daughter to be his POA ). This was established from prior conversations with patient and witnessed by nursing staff. Called sister Michael [phone] and updated on patient's condition and progress as well as plan of care for peg placement. Sister will be available via phone ( she lives in [place]) to provide the necessary consents, sister agrees with plan for PEG placement Continue IVF for now Will be scheduled for PEG placement on 05/31 as per GI Rehab placement as soon as we find an accepting facility Medicaid application ongoing 3.ETOH withdrawal/ Delirium tremens-- resolved patient was tachycardic, tremulous, confused with visual hallucinations on admission was initially Started on librium tapering dose Neurology rec Seroquel HS Continue thiamine, folic acid, MVI and IVF Seizure precautions Ativan prn 4. HTN uncontrolled po meds on hold for now since patient failed swallow eval hydralazine IV RTC and Enalapril IV RTC Add Clonidine patch 5.Thrombocytopenia improved 6.Hypokalemia, replace with Kcl runs as needed 7. Anemia of chronic disease resolved 8. Depression Pt told RN , he wants to kill himself Psych consulted- Psych rec Paxil and Risperdal - will start as soon as pt can have PO 8. DVT PPx Lovenox
[2017-05-30] MEDS: EnalaprilAT 1.25 mg/ml Inj IV SCH ×4 (04:13→21:25)
[2017-05-30] MEDS: Potassium Chl 20 mEq in D5-NS 1,000 ML IV SCH ×3 (04:15→04:20)
[2017-05-30 06:03] LABS: HEMATOCRIT 38.9 % (35.0-51.0); MEAN CELL VOLUME 98.9 fl (80.0-94.0); MEAN CORPUSCULAR HEMOGLOBIN 33.4 pg (27.0-31.0); MEAN CORPUSCULAR HGB CONC 33.8 g/dL (33.0-37.0); WHITE BLOOD COUNT 6.7 K/uL (4.8-10.8)
[2017-05-30 06:27] LABS: CALCIUM 9.7 mg/dL (8.4-10.2); CARBON DIOXIDE 24 mmol/L (22-30); CHLORIDE 99 mmol/L (98-107); GFR AFRICAN-AMERICAN > 60; GLUCOSE,RANDOM 93 mg/dL (75-110); POTASSIUM 3.8 MMOL/L (3.6-5.0); SODIUM 133 mmol/l (132-148)
[2017-05-30 06:30] LABS: BLOOD UREA NITROGEN 2 mg/dl (9-20)
--- NOTE | 2017-05-30 07:39 | CP.PCM.PN ---
Subjective - Date & Time of Evaluation Date of Evaluation: 05/30/17 Time of Evaluation: 07:38 - Subjective Subjective: pt awake alert and oriented to place and person states he is feeling better would like to eat, but explained extensively regarding swallow eval and aspiration VSS NAD for PEG tomorrow Objective - Vital Signs/Intake and Output Vital Signs (last 24 hours): Temp Pulse Resp BP Pulse Ox 98.9 F 70 18 161/80 H 97 05/30/17 05:04 05/30/17 05:04 05/30/17 05:04 05/30/17 05:04 05/30/17 05:04 - Medications Medications: Current Medications Acetaminophen (Tylenol 650 Mg Supp) 650 mg [place] Q6 PRN PRN Reason: Fever >100.4 F Last Admin: 05/11/17 04:50 Dose: 650 mg Acetylcysteine (Acetylcysteine 20%) 2 ml INH RBID [facility] Last Admin: 05/29/17 19:07 Dose: 2 ml Albuterol/Ipratropium (Duoneb 3 Mg/0.5 Mg (3 Ml) Ud) 3 ml INH RQID [facility] Last Admin: 05/29/17 19:07 Dose: 3 ml Aspirin (Aspirin Supp) 300 mg PA DAILY [facility] Last Admin: 05/29/17 09:12 Dose: Not Given Atorvastatin Calcium (Lipitor) 40 mg PO DAILY [facility] Last Admin: 05/29/17 09:14 Dose: Not Given Clonidine HCl (Catapres Tts1 0.1 Mg/24 Hr) 1 patch TD Q7D [facility] Last Admin: 05/29/17 09:17 Dose: 1 patch Clopidogrel Bisulfate (Plavix) 75 mg PO DAILY [facility] Last Admin: 05/25/17 09:27 Dose: Not Given Enalaprilat (Vasotec Iv) 1.25 mg IV Q6 [facility] Last Admin: 05/30/17 04:13 Dose: 1.25 mg Enoxaparin Sodium (Lovenox) 40 mg SC DAILY [facility] PRN Reason: Protocol Last Admin: 05/29/17 09:14 Dose: 40 mg Hydralazine HCl (Apresoline) 10 mg IV Q6 PRN PRN Reason: Systolic Blood Pressure Last Admin: 05/25/17 18:52 Dose: 10 mg Hydralazine HCl (Apresoline) 10 mg IV Q8 [facility] Last Admin: 05/29/17 16:58 Dose: 10 mg Thiamine HCl 100 mg/ Sodium (Chloride) 101 mls @ 101 mls/hr IV DAILY [facility] Last Admin: 05/29/17 09:17 Dose: 101 mls/hr Potassium Chloride/Dextrose/Sod Cl (Potassium Chl 20 Meq In D5-Ns) 1,000 mls @ 80 mls/hr IV .[id number] [facility] Last Admin: 05/30/17 04:20 Dose: Not Given Lorazepam (Ativan) 1 mg IVP Q6 PRN PRN Reason: Agitation Last Admin: 05/21/17 01:06 Dose: 1 mg Morphine Sulfate (Morphine) 2 mg IVP Q6 PRN PRN Reason: Agitation Last Admin: 05/29/17 17:02 Dose: 2 mg Pantoprazole Sodium (Protonix Inj) 40 mg IVP DAILY [facility] Last Admin: 05/29/17 09:14 Dose: 40 mg Quetiapine Fumarate (Seroquel) 25 mg PO HS [facility] Last Admin: 05/03/17 22:55 Dose: Not Given - Labs Labs: 05/30/17 05:30 05/30/17 05:30 PT 12.8 Seconds (9.8-13.1) 05/26/17 06:00 INR 1.2 (0.9-1.2) 05/26/17 06:00 APTT 36.0 Seconds (25.6-37.1) 05/26/17 06:00 - Constitutional Appears: Non-toxic, No Acute Distress - Head Exam Head Exam: ATRAUMATIC, NORMOCEPHALIC - Eye Exam Eye Exam: EOMI, Normal appearance, PERRL - ENT Exam ENT Exam: Mucous Membranes Moist, Normal Exam - Respiratory Exam Respiratory Exam: Clear to Ausculation Bilateral, NORMAL BREATHING PATTERN - Cardiovascular Exam Cardiovascular Exam: RRR, +S1, +S2 - GI/Abdominal Exam GI & Abdominal Exam: Soft, Normal Bowel Sounds - Extremities Exam Extremities Exam: Normal Capillary Refill, Normal Inspection - Neurological Exam Neurological Exam: Alert, Awake - Psychiatric Exam Psychiatric exam: Normal Affect, Normal Mood - Skin Skin Exam: Dry, Warm Assessment and Plan - Assessment and Plan (Free Text) Plan: 56 y/o homeless male with PMHx significant for HTN, anemia, and EtOH abuse presented to ER with multiple falls and minor head trauma. He stated that he had been feeling 'off balance' and falling more over the past several days. CT head : showed Multiple bilateral lacunar infarcts and severe cortical atrophy. Patient admitted in telemetry for close monitoring. MRI head showed acute right MCA stroke. Patient started on ASA, lovenox and statin. Neurology and PT consulted He developed DT-s and was started on gabapentin 300 mg PO TID , Seroquel and Ativan PRN Patient became more lethargic with dyarthria, dysphagia, left facial droop and left side weakness that progressed to flaccidity. Repeat MRI of the head : Findings compatible with the known recent right basal ganglia infarct. No new areas of infarction seen. No MR evidence of associated hemorrhage. He developed acute hypoxemic respiratory failure on 05/09 likely due to Aspiration PNA, was intubated and transferred to ICU. Now he is extubated since 05/19 , saturating 99 % ,97 % in RA, maintaining his airway, less secretions Neurologically much better ,he is awake and alert , follows commands, now able to move LUE 4/5 and LLE 3/5 that were flaccid before Failed Modified Barium Swallow study twice, last one was performed 05/23 . NPO on IVF since extubation since patient refusing NGT placement. 1. Acute Respiratory failure with Hypoxia sec to Aspiration Pneumonia-- improved Patient was intubated for more than 10 days in ICU. He had total opacification of left lung 05/09 due to aspiration pneumonia since patient could not handle his secretions and could not protect his airway . Extubated and doing well, maintaining his airway at present , saturating 99 % in RA Patient is improving neurologically Sputum cultures were positive for MRSA and Serratia Marcescen and patient received full course of meropenem and Vanco IV as per ID Afebrile, leukocytosis resolved keep head of the bed elevated aspiration precautions CXR showed improvement of left side infiltrates No need for bronchoscopy and trach as discussed with Dr Meli pate 2. Acute Ischemic stroke - Right MCA distribution patient became lethargic with dysarthria, dysphagia, left facial droop and left side hemiparesis with stroke progression MRI of the head 04/28 : 1. Acute right MCA territory infarction involving the right narayanan radiata and basal ganglia. At present neurologically much improved,awake. alert with some confusion on and off, maintaining his airway , able to move LUE 4/5 , LLE 3/5, awake, alert and oriented , following commands and responding questions appropriately Started PT , OT and speech eval . Refused NGT placement so plavix and Statin on hold Pt on ASA rectal supp (on hold in prep for PEG placement on Tuesday) Failed again Modified Barium swallow eval on 05/23 so GI re consulted for PEG placement , Dr. Tolbert As per patient's wishes his eldest sister Michael is his surrogate decision maker.( He has been estranged from his daughter for the last 30 years so does not want his daughter to be his POA ). This was established from prior conversations with patient and witnessed by nursing staff. Called sister Michael [phone] and updated on patient's condition and progress as well as plan of care for peg placement. Sister will be available via phone ( she lives in [place]) to provide the necessary consents, sister agrees with plan for PEG placement Continue IVF for now Will be scheduled for PEG placement on 05/31 as per GI Rehab placement as soon as we find an accepting facility Medicaid application ongoing 3.ETOH withdrawal/ Delirium tremens-- resolved patient was tachycardic, tremulous, confused with visual hallucinations on admission was initially Started on librium tapering dose Neurology rec Seroquel HS Continue thiamine, folic acid, MVI and IVF Seizure precautions Ativan prn 4. HTN uncontrolled po meds on hold for now since patient failed swallow eval hydralazine IV RTC and Enalapril IV RTC Add Clonidine patch 5.Thrombocytopenia improved 6.Hypokalemia, replace with Kcl runs as needed 7. Anemia of chronic disease resolved 8. Depression Pt told RN , he wants to kill himself Psych consulted- Psych rec Paxil and Risperdal - will start as soon as pt can have PO 8. DVT PPx Lovenox
[2017-05-30] MEDS: Albuterol-Ipratrop 3 mg / 0.5 (3 ml) UD INH SCH ×4 (07:43→19:15)
[2017-05-30] MEDS: Acetylcysteine 20% Inhal Soln (4ml) INH SCH ×2 (07:43→19:15)
[2017-05-30] MEDS: Thiamine 100 MG in Sodium Chloride 0.9% 100 ML IV SCH (08:40)
[2017-05-30] MEDS: Enoxaparin 40 mg Syringe SC SCH (08:41)
[2017-05-30] MEDS ORDERED: Lactated Ringer's 500 ML IV ONE (14:04)
[2017-05-30] MEDS ORDERED: Propofol 10 mg/ml Inj (20 ML) ONE (14:05)
[2017-05-30] MEDS ORDERED: Etomidate 20 mg/10ml Inj IV ONE (14:05)
--- NOTE | 2017-05-30 15:25 | CP.PCM.PN ---
Subjective - Date & Time of Evaluation Date of Evaluation: 05/30/17 Time of Evaluation: 10:30 - Subjective Subjective: F/U Respiratory failure. Pt awake, follows commands, he wants to eat, having periods of confusions reported by nurse, Off O2 with good saturation, no respiratory distress, no c/o. Objective - Vital Signs/Intake and Output Vital Signs (last 24 hours): Temp Pulse Resp BP Pulse Ox 97 F L 76 11 L 131/76 100 05/30/17 14:47 05/30/17 14:47 05/30/17 14:47 05/30/17 14:47 05/30/17 14:47 Intake and Output: 05/30/17 05/30/17 06:59 18:59 Intake Total 100 Balance 100 - Medications Medications: Current Medications Acetaminophen (Tylenol 650 Mg Supp) 650 mg [place] Q6 PRN PRN Reason: Fever >100.4 F Last Admin: 05/11/17 04:50 Dose: 650 mg Acetylcysteine (Acetylcysteine 20%) 2 ml INH RBID [facility] Last Admin: 05/30/17 07:43 Dose: 2 ml Albuterol/Ipratropium (Duoneb 3 Mg/0.5 Mg (3 Ml) Ud) 3 ml INH RQID [facility] Last Admin: 05/30/17 11:19 Dose: 3 ml Aspirin (Aspirin Supp) 300 mg [place] DAILY [facility] Last Admin: 05/30/17 08:39 Dose: Not Given Atorvastatin Calcium (Lipitor) 40 mg PO DAILY [facility] Last Admin: 05/30/17 08:39 Dose: Not Given Clonidine HCl (Catapres Tts1 0.1 Mg/24 Hr) 1 patch TD Q7D [facility] Last Admin: 05/29/17 09:17 Dose: 1 patch Clopidogrel Bisulfate (Plavix) 75 mg PO DAILY [facility] Last Admin: 05/25/17 09:27 Dose: Not Given Enalaprilat (Vasotec Iv) 1.25 mg IV Q6 [facility] Last Admin: 05/30/17 04:13 Dose: 1.25 mg Enoxaparin Sodium (Lovenox) 40 mg SC DAILY [facility] PRN Reason: Protocol Last Admin: 05/30/17 08:41 Dose: Not Given Hydralazine HCl (Apresoline) 10 mg IV Q6 PRN PRN Reason: Systolic Blood Pressure Last Admin: 05/25/17 18:52 Dose: 10 mg Hydralazine HCl (Apresoline) 10 mg IV Q8 [facility] Last Admin: 05/30/17 08:38 Dose: 10 mg Thiamine HCl 100 mg/ Sodium (Chloride) 101 mls @ 101 mls/hr IV DAILY [facility] Last Admin: 05/30/17 08:40 Dose: 101 mls/hr Potassium Chloride/Dextrose/Sod Cl (Potassium Chl 20 Meq In D5-Ns) 1,000 mls @ 80 mls/hr IV .[id number] [facility] Last Admin: 05/30/17 04:20 Dose: Not Given Lorazepam (Ativan) 1 mg IVP Q6 PRN PRN Reason: Agitation Last Admin: 05/21/17 01:06 Dose: 1 mg Morphine Sulfate (Morphine) 2 mg IVP Q6 PRN PRN Reason: Agitation Last Admin: 05/30/17 08:55 Dose: 2 mg Pantoprazole Sodium (Protonix Ec Tab) 40 mg PO DAILY [facility] Quetiapine Fumarate (Seroquel) 25 mg PO HS [facility] Last Admin: 05/03/17 22:55 Dose: Not Given - Labs Labs: 05/30/17 05:30 05/30/17 05:30 PT 13.2 Seconds (9.8-13.1) H 05/30/17 10:20 INR 1.3 (0.9-1.2) H 05/30/17 10:20 APTT 36.0 Seconds (25.6-37.1) 05/26/17 06:00 - Constitutional Appears: Chronically Ill - Head Exam Head Exam: NORMAL INSPECTION - Eye Exam Eye Exam: PERRL - ENT Exam ENT Exam: Normal Exam - Neck Exam Neck Exam: Normal Inspection - Respiratory Exam Respiratory Exam: Decreased Breath Sounds, Rhonchi (few scattered) - Cardiovascular Exam Cardiovascular Exam: REGULAR RHYTHM - GI/Abdominal Exam GI & Abdominal Exam: Soft, Normal Bowel Sounds - Back Exam Back Exam: NORMAL INSPECTION - Neurological Exam Neurological Exam: Alert, Awake Additional comments: Confused at times, Ox2, follows simple commands, L hemiplegia. - Psychiatric Exam Additional comments: Calm - Skin Skin Exam: Normal Color, Warm Assessment and Plan (1) Acute respiratory failure Assessment & Plan: Improved. Status: Acute (2) MRSA pneumonia Assessment & Plan: Resolved. Status: Acute (3) Acute right MCA stroke Status: Acute - Assessment and Plan (Free Text) Plan: Pt failed swallow eval, for Peg tube today.
[2017-05-31] MEDS: EnalaprilAT 1.25 mg/ml Inj IV SCH ×2 (03:44→09:04)
[2017-05-31] MEDS: Potassium Chl 20 mEq in D5-NS 1,000 ML IV SCH ×2 (03:47→13:51)
[2017-05-31] MEDS: Albuterol-Ipratrop 3 mg / 0.5 (3 ml) UD INH SCH ×4 (07:41→19:16)
[2017-05-31] MEDS: Acetylcysteine 20% Inhal Soln (4ml) INH SCH ×2 (07:41→19:16)
[2017-05-31] MEDS: Enoxaparin 40 mg Syringe SC SCH (08:58)
[2017-05-31] MEDS ORDERED: Pantoprazole 40 mg EC Tab PO SCH (09:00)
[2017-05-31] MEDS: Pantoprazole 40 mg Susp UD PEG SCH ×2 (09:04→16:44)
[2017-05-31] MEDS: Thiamine 100 MG in Sodium Chloride 0.9% 100 ML IV SCH (09:49)
[2017-05-31 09:56] LABS: HEMATOCRIT 37.1 % (35.0-51.0); MEAN CELL VOLUME 97.1 fl (80.0-94.0); MEAN CORPUSCULAR HEMOGLOBIN 33.2 pg (27.0-31.0); MEAN CORPUSCULAR HGB CONC 34.1 g/dL (33.0-37.0); RED CELL DISTRIBUTION WIDTH 14.1 % (11.5-14.5); WHITE BLOOD COUNT 14.3 K/uL (4.8-10.8)
--- NOTE | 2017-05-31 09:56 | CP.PCM.PN ---
Subjective - Date & Time of Evaluation Date of Evaluation: 05/31/17 Time of Evaluation: 09:30 - Subjective Subjective: Patient seen and examined bedside. Awake , alert and oriented .Answering questions appropriately, following commands. s/p peg placement today by GI. Complains of pain around peg site. Hemodynamically stable, afebrile. No acute issues overnight Objective - Vital Signs/Intake and Output Vital Signs (last 24 hours): Temp Pulse Resp BP Pulse Ox 98.3 F 87 20 168/74 H 99 05/31/17 08:23 05/31/17 08:59 05/31/17 08:23 05/31/17 09:04 05/31/17 08:23 Intake and Output: 05/31/17 05/31/17 06:59 18:59 Intake Total 960 Output Total 800 Balance 160 - Medications Medications: Current Medications Acetaminophen (Tylenol 650 Mg Supp) [address] Q6 PRN PRN Reason: Fever >100.4 F Last Admin: 05/11/17 04:50 Dose: 650 mg Acetylcysteine (Acetylcysteine 20%) 2 ml INH RBID [facility] Last Admin: 05/31/17 07:41 Dose: 2 ml Albuterol/Ipratropium (Duoneb 3 Mg/0.5 Mg (3 Ml) Ud) 3 ml INH RQID [facility] Last Admin: 05/31/17 07:41 Dose: 3 ml Aspirin (Aspirin Supp) [address] DAILY [facility] Last Admin: 05/31/17 09:03 Dose: 300 mg Atorvastatin Calcium (Lipitor) 40 mg PO DAILY [facility] Last Admin: 05/31/17 08:58 Dose: 40 mg Clonidine HCl (Catapres Tts1 0.1 Mg/24 Hr) 1 patch TD Q7D [facility] Last Admin: 05/29/17 09:17 Dose: 1 patch Clopidogrel Bisulfate (Plavix) 75 mg PO DAILY [facility] Last Admin: 05/25/17 09:27 Dose: Not Given Enalaprilat (Vasotec Iv) 1.25 mg IV Q6 [facility] Last Admin: 05/31/17 09:04 Dose: 1.25 mg Enoxaparin Sodium (Lovenox) 40 mg SC DAILY [facility] PRN Reason: Protocol Last Admin: 05/31/17 08:58 Dose: 40 mg Hydralazine HCl (Apresoline) 10 mg IV Q6 PRN PRN Reason: Systolic Blood Pressure Last Admin: 05/25/17 18:52 Dose: 10 mg Hydralazine HCl (Apresoline) 10 mg IV Q8 [facility] Last Admin: 05/31/17 08:59 Dose: 10 mg Thiamine HCl 100 mg/ Sodium (Chloride) 101 mls @ 101 mls/hr IV DAILY [facility] Last Admin: 05/30/17 08:40 Dose: 101 mls/hr Potassium Chloride/Dextrose/Sod Cl (Potassium Chl 20 Meq In D5-Ns) 1,000 mls @ 80 mls/hr IV .[id number] [facility] Last Admin: 05/31/17 03:47 Dose: Not Given Lorazepam (Ativan) 1 mg IVP Q6 PRN PRN Reason: Agitation Last Admin: 05/21/17 01:06 Dose: 1 mg Morphine Sulfate (Morphine) 2 mg IVP Q6 PRN PRN Reason: Agitation Last Admin: 05/31/17 00:25 Dose: 2 mg Pantoprazole Sodium (Protonix Susp) 40 mg PEG BID [facility] Last Admin: 05/31/17 09:04 Dose: Not Given Quetiapine Fumarate (Seroquel) 25 mg PO HS [facility] Last Admin: 05/03/17 22:55 Dose: Not Given - Labs Labs: 05/30/17 05:30 05/30/17 05:30 PT 13.2 Seconds (9.8-13.1) H 05/30/17 10:20 INR 1.3 (0.9-1.2) H 05/30/17 10:20 APTT 36.0 Seconds (25.6-37.1) 05/26/17 06:00 - Constitutional Appears: Non-toxic, No Acute Distress, Cachectic, Chronically Ill - Head Exam Head Exam: ATRAUMATIC, NORMAL INSPECTION, NORMOCEPHALIC - Eye Exam Eye Exam: EOMI, Normal appearance, PERRL Pupil Exam: NORMAL ACCOMODATION - ENT Exam ENT Exam: Mucous Membranes Dry - Neck Exam Neck Exam: Full ROM, Normal Inspection - Respiratory Exam Respiratory Exam: Clear to Ausculation Bilateral, NORMAL BREATHING PATTERN. absent: Rales, Rhonchi, Wheezes, Respiratory Distress - Cardiovascular Exam Cardiovascular Exam: REGULAR RHYTHM, RRR, +S1, +S2. absent: JVD - GI/Abdominal Exam GI & Abdominal Exam: Soft, Normal Bowel Sounds. absent: Distended, Guarding, Tenderness, Rebound Additional comments: peg in place - Rectal Exam Rectal Exam: Deferred - Extremities Exam Extremities Exam: Normal Capillary Refill, Normal Inspection. absent: Calf Tenderness, Pedal Edema - Neurological Exam Neurological Exam: Alert, Awake, Oriented x3 Neuro motor strength exam: Left Upper Extremity: 4, Right Upper Extremity: 5, Left Lower Extremity: 4, Right Lower Extremity: 5 Additional comments: left facial droop - Psychiatric Exam Psychiatric exam: Normal Affect - Skin Skin Exam: Dry, Intact, Warm Assessment and Plan - Assessment and Plan (Free Text) Assessment: 56 y/o homeless male with PMHx significant for HTN, anemia, and EtOH abuse presented to ER with multiple falls and minor head trauma. He stated that he had been feeling 'off balance' and falling more over the past several days. CT head : showed Multiple bilateral lacunar infarcts and severe cortical atrophy. Patient admitted in telemetry for close monitoring. MRI head showed acute right MCA stroke. Patient was started on ASA, lovenox and statin. Neurology and PT consulted He developed DT-s and was started on gabapentin 300 mg PO TID , Seroquel and Ativan PRN Patient became more lethargic with dyarthria, dysphagia, left facial droop and left side weakness that progressed to flaccidity. Repeat MRI of the head : Findings compatible with the known recent right basal ganglia infarct. No new areas of infarction seen. No MR evidence of associated hemorrhage. He developed acute hypoxemic respiratory failure on 05/09 likely due to Aspiration PNA, was intubated and transferred to ICU. Now he is extubated since 05/19 , saturating 100 % in RA, maintaining his airway Neurologically much better ,he is awake and alert , follows commands, now able to move LUE 4/5 and LLE 4/5 that were flaccid before Failed Modified Barium Swallow study twice, last one was performed 05/23 . NPO on IVF since extubation since patient refusing NGT placement.Today underwent peg placement by GI . 1. Acute Respiratory failure with Hypoxia sec to Aspiration Pneumonia-- improved Patient was intubated for more than 10 days in ICU. He had total opacification of left lung 05/09 due to aspiration pneumonia since patient could not handle his secretions and could not protect his airway . Extubated and doing well, maintaining his airway at present , saturating 100% in RA Sputum cultures were positive for MRSA and Serratia Marcescen and patient received full course of meropenem and Vanco IV as per ID Afebrile, leukocytosis resolved keep head of the bed elevated aspiration precautions CXR showed improvement of left side infiltrates No need for bronchoscopy and trach as discussed with Dr Meli pate 2. Acute Ischemic stroke - Right MCA distribution patient became lethargic with dysarthria, dysphagia, left facial droop and left side hemiparesis with stroke progression MRI of the head 04/28 : 1. Acute right MCA territory infarction involving the right narayanan radiata and basal ganglia. At present neurologically much improved,awake, alert and oriented , maintaining his airway , able to move LUE 4/5 , LLE 4/5, following commands and responding questions appropriately continue PT , OT and speech eval . Refused NGT placement so plavix and Statin has been on hold since 05/20 but ASa changed to CT Failed Modified Barium swallow eval on 05/23 so GI re consulted for PEG placement , Dr. Tolbert s/p peg placement today ( consent provided by sister Mcihael who is surrogate decision maker as per patient's request ) .Patient gets confused on and off . Continue IVF for now Will resume meds via peg today and feeding tomorrow Rehab placement as soon as we find an accepting facility Medicaid application ongoing 3.ETOH withdrawal/ Delirium tremens-- resolved patient was tachycardic, tremulous, confused with visual hallucinations on admission was initially Started on librium tapering dose Continue thiamine, folic acid, MVI and IVF Seizure precautions Ativan prn 4. HTN uncontrolled po meds on hold for now since patient failed swallow eval Will restart Po meds now that peg is placed on Clonidine patch 5.Thrombocytopenia improved 6.Hypokalemia, replace with Kcl runs as needed 7. Anemia of chronic disease resolved 8. Depression Pt told RN , he wants to kill himself Psych consulted- Psych rec Paxil and Risperdal -will have again psych eval before starting psych meds 8. DVT PPx Lovenox
[2017-05-31 10:01] LABS: BLOOD UREA NITROGEN 4 mg/dl (9-20); CALCIUM 9.3 mg/dL (8.4-10.2); CARBON DIOXIDE 24 mmol/L (22-30); CHLORIDE 99 mmol/L (98-107); GFR AFRICAN-AMERICAN > 60; GLUCOSE,RANDOM 114 mg/dL (75-110); POTASSIUM 3.7 MMOL/L (3.6-5.0); SODIUM 132 mmol/l (132-148)
--- NOTE | 2017-05-31 17:50 | CP.PCM.PN ---
<Nati Glover - Last Filed: 05/31/17 17:52> Subjective - Date & Time of Evaluation Date of Evaluation: 05/31/17 Time of Evaluation: 08:00 - Subjective Subjective: PGY4 GI Followup Pt seen and examined bedside He has some discomfort around the PEG Denies any nausea or vomiting Wants PO food. ROS: 12 point ROS conducted, neg other than above Objective - Vital Signs/Intake and Output Vital Signs (last 24 hours): Temp Pulse Resp BP Pulse Ox 97.8 F 81 18 132/69 100 05/31/17 15:42 05/31/17 16:43 05/31/17 15:42 05/31/17 16:43 05/31/17 15:42 Intake and Output: 05/31/17 05/31/17 06:59 18:59 Intake Total 960 1320 Output Total 800 950 Balance 160 370 - Medications Medications: Current Medications Acetaminophen (Tylenol 650 Mg Supp) 650 mg WA Q6 PRN PRN Reason: Fever >100.4 F Last Admin: 05/11/17 04:50 Dose: 650 mg Acetylcysteine (Acetylcysteine 20%) 2 ml INH RBID [facility] Last Admin: 05/31/17 07:41 Dose: 2 ml Albuterol/Ipratropium (Duoneb 3 Mg/0.5 Mg (3 Ml) Ud) 3 ml INH RQID [facility] Last Admin: 05/31/17 15:26 Dose: 3 ml Aspirin (Aspirin Chewable) 81 mg PO DAILY [facility] Last Admin: 05/31/17 11:11 Dose: Not Given Atorvastatin Calcium (Lipitor) 40 mg PO DAILY [facility] Clonidine HCl (Catapres Tts1 0.1 Mg/24 Hr) 1 patch TD Q7D [facility] Last Admin: 05/29/17 09:17 Dose: 1 patch Clopidogrel Bisulfate (Plavix) 75 mg PO DAILY [facility] Last Admin: 05/25/17 09:27 Dose: Not Given Enalapril Maleate (Vasotec) 10 mg PO BID [facility] Last Admin: 05/31/17 16:43 Dose: 10 mg Enoxaparin Sodium (Lovenox) 40 mg SC DAILY [facility] PRN Reason: Protocol Last Admin: 05/31/17 08:58 Dose: 40 mg Hydralazine HCl (Apresoline) 25 mg PO TID [facility] Last Admin: 05/31/17 16:43 Dose: 25 mg Thiamine HCl 100 mg/ Sodium (Chloride) 101 mls @ 101 mls/hr IV DAILY [facility] Last Admin: 05/31/17 09:49 Dose: 101 mls/hr Potassium Chloride/Dextrose/Sod Cl (Potassium Chl 20 Meq In D5-Ns) 1,000 mls @ 80 mls/hr IV .[id number] [facility] Last Admin: 05/31/17 13:51 Dose: 80 mls/hr Lorazepam (Ativan) 1 mg IVP Q6 PRN PRN Reason: Agitation Last Admin: 05/21/17 01:06 Dose: 1 mg Morphine Sulfate (Morphine) 2 mg IVP Q6 PRN PRN Reason: Agitation Last Admin: 05/31/17 00:25 Dose: 2 mg Pantoprazole Sodium (Protonix Susp) 40 mg PEG BID [facility] Last Admin: 05/31/17 16:44 Dose: Not Given - Labs Labs: 05/31/17 09:10 05/31/17 09:10 PT 13.2 Seconds (9.8-13.1) H 05/30/17 10:20 INR 1.3 (0.9-1.2) H 05/30/17 10:20 APTT 36.0 Seconds (25.6-37.1) 05/26/17 06:00 - Constitutional Appears: Well, Cachectic, Chronically Ill - Head Exam Head Exam: ATRAUMATIC, NORMOCEPHALIC - Eye Exam Eye Exam: Normal appearance - ENT Exam ENT Exam: Mucous Membranes Moist, Normal Exam - Respiratory Exam Respiratory Exam: Clear to Ausculation Bilateral, NORMAL BREATHING PATTERN. absent: Rales, Rhonchi, Wheezes, Respiratory Distress - Cardiovascular Exam Cardiovascular Exam: REGULAR RHYTHM, +S1, +S2 - GI/Abdominal Exam GI & Abdominal Exam: Soft, Tenderness, Hernia, Normal Bowel Sounds. absent: Organomegaly Additional comments: PEG intake, no discharge from peg insertion site; bumper moved to 3cm but still maintaining contact with abdominal wall - Extremities Exam Extremities Exam: absent: Joint Swelling, Pedal Edema - Neurological Exam Neurological Exam: Alert, Awake - Psychiatric Exam Psychiatric exam: Normal Affect, Normal Mood - Skin Skin Exam: Dry, Intact, Normal Color, Warm Assessment and Plan - Assessment and Plan (Free Text) Assessment: This is a 56yM with a hx of alcohol abuse, HTN, CBP s/p fall and found to have a Acute CVA with left sided weakness, dysarthria and dysphagia. Request for PEG tube placement. Repeat modified barium swallow failed on 05/23. Dyphagia with aspiration due to CVA, s/p PEG 05/30/17 Respiratory failure s/p extubation Aspiration PNA Acute CVA- Right Basal ganglia, narayanan radiata infarct Macrocytic Anemia ETOH abuse/dependence s/p DTs Plan: -PEG intact and function, no immediate complication noted -can use PEG for feeds and meds -can start feeds @ 20cc/hr and increase 5cc per hr until goal; feeds as per nutrition -continue abx as per ID -continue aspiration precautions -continue antiplat as per Neuro and primary team Will sign off, please reconsult if needed D/W Dr. Tolbert <Olga Tolbert MD - Last Filed: 05/31/17 20:59> Objective - Vital Signs/Intake and Output Vital Signs (last 24 hours): Temp Pulse Resp BP Pulse Ox 98.1 F 85 18 134/67 98 05/31/17 19:58 05/31/17 19:58 05/31/17 19:58 05/31/17 19:58 05/31/17 19:58 Intake and Output: 05/31/17 06/01/17 18:59 06:59 Intake Total 1320 Output Total 950 Balance 370 - Medications Medications: Current Medications Acetaminophen (Tylenol 650 Mg Supp) 650 mg WA Q6 PRN PRN Reason: Fever >100.4 F Last Admin: 05/11/17 04:50 Dose: 650 mg Acetylcysteine (Acetylcysteine 20%) 2 ml INH RBID [facility] Last Admin: 05/31/17 19:16 Dose: 2 ml Albuterol/Ipratropium (Duoneb 3 Mg/0.5 Mg (3 Ml) Ud) 3 ml INH RQID [facility] Last Admin: 05/31/17 19:16 Dose: 3 ml Aspirin (Aspirin Chewable) 81 mg PO DAILY [facility] Last Admin: 05/31/17 11:11 Dose: Not Given Atorvastatin Calcium (Lipitor) 40 mg PO DAILY [facility] Clonidine HCl (Catapres Tts1 0.1 Mg/24 Hr) 1 patch TD Q7D [facility] Last Admin: 05/29/17 09:17 Dose: 1 patch Clopidogrel Bisulfate (Plavix) 75 mg PO DAILY [facility] Last Admin: 05/25/17 09:27 Dose: Not Given Enalapril Maleate (Vasotec) 10 mg PO BID [facility] Last Admin: 05/31/17 16:43 Dose: 10 mg Enoxaparin Sodium (Lovenox) 40 mg SC DAILY [facility] PRN Reason: Protocol Last Admin: 05/31/17 08:58 Dose: 40 mg Hydralazine HCl (Apresoline) 25 mg PO TID [facility] Last Admin: 05/31/17 16:43 Dose: 25 mg Thiamine HCl 100 mg/ Sodium (Chloride) 101 mls @ 101 mls/hr IV DAILY [facility] Last Admin: 05/31/17 09:49 Dose: 101 mls/hr Potassium Chloride/Dextrose/Sod Cl (Potassium Chl 20 Meq In D5-Ns) 1,000 mls @ 80 mls/hr IV .[id number] [facility] Last Admin: 05/31/17 13:51 Dose: 80 mls/hr Lorazepam (Ativan) 1 mg IVP Q6 PRN PRN Reason: Agitation Last Admin: 05/21/17 01:06 Dose: 1 mg Morphine Sulfate (Morphine) 2 mg IVP Q6 PRN PRN Reason: Agitation Last Admin: 05/31/17 00:25 Dose: 2 mg Pantoprazole Sodium (Protonix Susp) 40 mg PEG BID [facility] Last Admin: 05/31/17 16:44 Dose: Not Given - Labs Labs: 05/31/17 09:10 05/31/17 09:10 PT 13.2 Seconds (9.8-13.1) H 05/30/17 10:20 INR 1.3 (0.9-1.2) H 05/30/17 10:20 APTT 36.0 Seconds (25.6-37.1) 05/26/17 06:00 Attending/Attestation - Attestation I have personally seen and examined this patient.: Yes I have fully participated in the care of the patient.: Yes I have reviewed all pertinent clinical information, including history, physical exam and plan: Yes Notes (Text): 05/31/17 20:57 Patient seen and examined with GI fellow on rounds this am. This is a 56 year old M with a hx of alcohol abuse, HTN, CBP s/p fall and found to have a Acute CVA with left sided weakness, dysarthria and dysphagia. s/p endoscopic PEG placement yesterday. Peg site clean. No induration, erythema or bleeding. Can start PEG feeds at 20 cc/hr and advance as tolerated. Aspiration precautions. Clean site daily. Continue anti platelet as per neurology Will sign off, please reconsult if needed
[2017-06-01] MEDS: Potassium Chl 20 mEq in D5-NS 1,000 ML IV SCH (02:32)
[2017-06-01 05:55] LABS: MEAN CELL VOLUME 98.8 fl (80.0-94.0); MEAN CORPUSCULAR HEMOGLOBIN 33.2 pg (27.0-31.0); MEAN CORPUSCULAR HGB CONC 33.6 g/dL (33.0-37.0)
[2017-06-01 06:06] LABS: BLOOD UREA NITROGEN 7 mg/dl (9-20); CARBON DIOXIDE 24 mmol/L (22-30); CHLORIDE 101 mmol/L (98-107); GFR AFRICAN-AMERICAN > 60; GLUCOSE,RANDOM 119 mg/dL (75-110); POTASSIUM 3.3 MMOL/L (3.6-5.0); SODIUM 134 mmol/l (132-148)
[2017-06-01] MEDS: Acetylcysteine 20% Inhal Soln (4ml) INH SCH ×2 (07:26→19:22)
[2017-06-01] MEDS: Albuterol-Ipratrop 3 mg / 0.5 (3 ml) UD INH SCH ×4 (07:26→19:22)
[2017-06-01] MEDS ORDERED: Potassium Chloride 20 mEq/15 ml LIQ UD PEG ONE (07:32)
[2017-06-01] MEDS: Pantoprazole 40 mg Susp UD PEG SCH ×2 (09:12→16:57)
[2017-06-01] MEDS: Enoxaparin 40 mg Syringe SC SCH (09:12)
[2017-06-01] MEDS: Thiamine 100 MG in Sodium Chloride 0.9% 100 ML IV SCH (09:13)
--- NOTE | 2017-06-01 10:10 | RAD ---
PROCEDURE: CHEST RADIOGRAPH, 1 VIEW HISTORY: r/o infiltrate COMPARISON: Comparison chest 05/21/2017. FINDINGS: LUNGS: Continued improvement patchy infiltrate throughout the left lung base does appear to be some residual areas of infiltrate or atelectasis the left lung base and left upper lobe. PLEURA: No pneumothorax or pleural fluid seen. CARDIOVASCULAR: Normal. OSSEOUS STRUCTURES: No significant abnormalities. VISUALIZED UPPER ABDOMEN: Normal. OTHER FINDINGS: None. IMPRESSION: Continued improvement patchy infiltrate throughout the left lung base does appear to be some residual areas of infiltrate or atelectasis the left lung base and left upper lobe.
--- NOTE | 2017-06-01 13:17 | CP.PCM.DIS ---
Provider - Provider Date of Admission: 04/26/17 21:42 Attending physician: Joselyn Brownlee MD Primary care physician: None Consults: pulmonary consult critical care neurology psychiatry GI consult Surgery consult PT/ OT / speech therapy Time Spent in preparation of Discharge (in minutes): 20 Hospital Course - Lab Results Lab Results: Micro Results 05/09/17 13:10 Blood Blood Culture - Final NO GROWTH AFTER 5 DAYS 05/09/17 13:10 Blood Gram Stain - Final TEST NOT PERFORMED 05/12/17 05:30 Urine,Adame Urine Culture - Final No Growth (<1,000 CFU/ML) 05/09/17 10:00 Naris MRSA Culture (Admit) - Final 05/09/17 10:00 Urine,Adame Urine Culture - Final No Growth (<1,000 CFU/ML) 05/07/17 19:12 Sputum Gram Stain - Final 05/07/17 19:12 Sputum Sputum Culture - Final Methicillin Resistant S Aureus 05/04/17 18:11 Blood Blood Culture - Final NO GROWTH AFTER 5 DAYS 05/04/17 18:11 Blood Gram Stain - Final TEST NOT PERFORMED 05/05/17 16:00 Sputum Gram Stain - Final 05/05/17 16:00 Sputum Sputum Culture - Final Serratia Marcescens Methicillin Resistant S Aureus 05/03/17 10:24 Stool Stool Culture - Final NO SALMONELLA, SHIGELLA OR CAMPYLOBACTER ISOLATED. Most Recent Lab Values WBC 14.0 K/uL (4.8-10.8) H 06/01/17 05:45 RBC 3.44 Mil/uL (4.40-5.90) L 06/01/17 05:45 Hgb 11.4 g/dL (12.0-18.0) L 06/01/17 05:45 Hct 34.0 % (35.0-51.0) L 06/01/17 05:45 MCV 98.8 fl (80.0-94.0) H 06/01/17 05:45 MCH 33.2 pg (27.0-31.0) H 06/01/17 05:45 MCHC 33.6 g/dL (33.0-37.0) 06/01/17 05:45 RDW 14.0 % (11.5-14.5) 06/01/17 05:45 Plt Count 221 K/uL (130-400) 06/01/17 05:45 MPV 8.3 fl (7.2-11.7) 05/16/17 04:20 Neut % (Auto) 79.1 % (50.0-75.0) H 05/16/17 04:20 Lymph % (Auto) 7.2 % (20.0-40.0) L 05/16/17 04:20 [place] % (Auto) 9.4 % (0.0-10.0) 05/16/17 04:20 Eos % (Auto) 2.9 % (0.0-4.0) 05/16/17 04:20 Baso % (Auto) 1.4 % (0.0-2.0) 05/16/17 04:20 Neut # 11.1 K/uL (1.8-7.0) H 05/16/17 04:20 Lymph # 1.0 K/uL (1.0-4.3) 05/16/17 04:20 [place] # 1.3 K/uL (0.0-0.8) H 05/16/17 04:20 Eos # 0.4 K/uL (0.0-0.7) 05/16/17 04:20 Baso # 0.2 K/uL (0.0-0.2) 05/16/17 04:20 Neutrophils % (Manual) 85 % (42-75) H 05/14/17 05:30 Band Neutrophils % 5 % (0-2) H 05/10/17 04:20 Lymphocytes % (Manual) 4 % (20-50) L 05/14/17 05:30 Monocytes % (Manual) 9 % (0-10) 05/14/17 05:30 Eosinophils % (Manual) 2 % (0-7) 05/14/17 05:30 Basophils % (Manual) 2 % (0-2) 05/03/17 05:35 Platelet Estimate Normal (NORMAL) 05/14/17 05:30 Plt Clumps, EDTA Present 05/03/17 05:35 Anisocytosis (manual) Slight 05/14/17 05:30 Macrocytosis (manual) Slight 05/14/17 05:30 PT 13.2 Seconds (9.8-13.1) H 05/30/17 10:20 INR 1.3 (0.9-1.2) H 05/30/17 10:20 APTT 36.0 Seconds (25.6-37.1) 05/26/17 06:00 pCO2 43 mm/Hg (35-45) 05/20/17 05:47 pO2 84 mm/Hg (80-100) 05/20/17 05:47 HCO3 33.6 mmol/L (21-28) H 05/20/17 05:47 ABG pH 7.52 (7.35-7.45) H 05/20/17 05:47 ABG Total CO2 36.4 mmol/L (22-28) H 05/20/17 05:47 ABG O2 Saturation 98.3 % (95-98) H 05/20/17 05:47 ABG O2 Content 15.1 ML/dL (15-23) 05/20/17 05:47 ABG Base Excess 11.1 mmol/L (-2.0-3.0) H 05/20/17 05:47 ABG Hemoglobin 11.2 g/dL (11.7-17.4) L 05/20/17 05:47 ABG Carboxyhemoglobin 1.3 % (0.5-1.5) 05/20/17 05:47 POC ABG HHb (Measured) 1.6 % (0.0-5.0) 05/20/17 05:47 ABG Methemoglobin 1.8 % (0.0-3.0) 05/20/17 05:47 ABG O2 Capacity 15.4 mL/dL (16-24) L 05/20/17 05:47 [place] Test Yes 05/20/17 05:47 ABG Potassium 2.7 mmol/L (3.6-5.2) L 05/05/17 12:50 A-a O2 Difference 147.0 mm/Hg 05/20/17 05:47 Hgb O2 Saturation 95.3 % (95.0-98.0) 05/20/17 05:47 Sodium 139.0 mmol/L (132-148) 05/05/17 12:50 Chloride 113.0 mmol/L (98-107) H 05/05/17 12:50 Glucose 121 mg/dL (75-110) H 05/05/17 12:50 Lactate 0.9 mmol/L (0.7-2.1) 05/05/17 12:50 Vent Mode Aerosol mask 05/20/17 05:47 Mechanical Rate 16 05/19/17 05:25 FiO2 40.0 % 05/20/17 05:47 Tidal Volume 450 05/19/17 05:25 PEEP 5 05/19/17 05:25 Pressure Support 10 05/19/17 10:48 CPAP 5 05/19/17 10:48 Sodium 134 mmol/l (132-148) 06/01/17 05:45 Potassium 3.3 MMOL/L (3.6-5.0) L 06/01/17 05:45 Chloride 101 mmol/L (98-107) 06/01/17 05:45 Carbon Dioxide 24 mmol/L (22-30) 06/01/17 05:45 Anion Gap 12 (10-20) 06/01/17 05:45 BUN 7 mg/dl (9-20) L 06/01/17 05:45 Creatinine 0.4 mg/dL (0.8-1.5) L 06/01/17 05:45 Est GFR ( Amer) > 60 06/01/17 05:45 Est GFR (Non-Af Amer) > 60 06/01/17 05:45 POC Glucose (mg/dL) 91 mg/dL (65-110) 05/11/17 11:10 Random Glucose 119 mg/dL (75-110) H 06/01/17 05:45 Hemoglobin A1c 5.4 % (4.2-6.5) 04/27/17 06:10 Calcium 9.0 mg/dL (8.4-10.2) 06/01/17 05:45 Phosphorus 3.9 mg/dl (2.5-4.5) 05/07/17 06:00 Magnesium 1.8 MG/DL (1.6-2.3) 05/16/17 04:20 Total Bilirubin 0.7 mg/dl (0.2-1.3) 05/14/17 05:30 Direct Bilirubin 0.5 mg/ml (0.0-0.4) H 05/01/17 14:30 AST 69 U/L (17-59) H 05/14/17 05:30 ALT 69 U/L (21-72) 05/14/17 05:30 Alkaline Phosphatase 64 U/L (38-126) 05/14/17 05:30 Ammonia 22 umo/L (16-60) D 05/08/17 05:30 Total Protein 5.9 G/DL (6.3-8.2) L 05/14/17 05:30 Albumin 2.3 g/dL (3.5-5.0) L 05/14/17 05:30 Globulin 3.6 gm/dL (2.2-3.9) 05/14/17 05:30 Albumin/Globulin Ratio 0.6 (1.0-2.1) L 05/14/17 05:30 Triglycerides 48 mg/DL (0-149) 04/27/17 06:10 Cholesterol 178 mg/dL (0-199) 04/27/17 06:10 LDL Cholesterol Direct 57 mg/dL (0-129) 04/27/17 06:10 HDL Cholesterol 95 MG/DL (30-70) H 04/27/17 06:10 Vitamin B12 384 pg/mL (239-931) 04/27/17 06:10 RBC Folate 306 ng/mL RBC (>280) 04/27/17 06:10 TSH 3rd Generation 3.11 mIU/ML (0.46-4.68) 04/28/17 05:00 Arterial Blood Potassium 2.7 mmol/L (3.6-5.2) L 05/05/17 12:50 Urine Color Anat (YELLOW) 04/27/17 07:46 Urine Clarity Slighty-cloudy (Clear) 04/27/17 07:46 Urine pH 6.0 (5.0-8.0) 04/27/17 07:46 Ur Specific [place] 1.017 (1.003-1.030) 04/27/17 07:46 Urine Protein Negative mg/dL (NEGATIVE) 04/27/17 07:46 Urine Glucose (UA) Neg mg/dL (Normal) 04/27/17 07:46 Urine Ketones Negative mg/dL (NEGATIVE) 04/27/17 07:46 Urine Blood Small (NEGATIVE) 04/27/17 07:46 Urine Nitrate Negative (NEGATIVE) 04/27/17 07:46 Urine Bilirubin Negative (NEGATIVE) 04/27/17 07:46 Urine Urobilinogen 4.0 mg/dL (0.2-1.0) 04/27/17 07:46 Ur Leukocyte Esterase Neg [place]/uL (Negative) 04/27/17 07:46 Urine RBC (Auto) 4 /hpf (0-3) H 04/27/17 07:46 Urine Microscopic WBC < 1 /hpf (0-5) 04/27/17 07:46 Vancomycin Trough 8.4 ug/mL (5.0-10.0) 05/10/17 19:50 Alcohol, Quantitative < 10 mg/dl (0-10) 04/26/17 20:59 C. difficile Ag & Toxin Negative (NEGATIVE) 05/03/17 21:23 - Hospital Course Hospital Course: 56 y/o homeless male with PMHx significant for HTN, anemia, and EtOH abuse presented to ER with multiple falls and minor head trauma. He stated that he had been feeling 'off balance' and falling more over the past several days. CT head : showed Multiple bilateral lacunar infarcts and severe cortical atrophy. Patient admitted in telemetry for close monitoring. MRI head showed acute right MCA stroke. Patient was started on ASA, lovenox and statin. Neurology and PT consulted He developed DT-s and was started on gabapentin 300 mg PO TID , Seroquel and Ativan PRN Patient became more lethargic with dyarthria, dysphagia, left facial droop and left side weakness that progressed to flaccidity. Repeat MRI of the head : Findings compatible with the known recent right basal ganglia infarct. No new areas of infarction seen. No MR evidence of associated hemorrhage. He developed acute hypoxemic respiratory failure on 05/09 likely due to Aspiration PNA, was intubated and transferred to ICU. Now he is extubated since 05/19 , saturating 100 % in RA, maintaining his airway.His sputum cultures were reported positive fort MRSA and serratia marcescen. He received full course of IV Meropenem and Vancomycin . Neurologically much better ,he is awake and alert ,oriented , follows commands, now able to move LUE 4/5 and LLE 4/5 that were flaccid before Failed Modified Barium Swallow study twice, last one was performed 05/23 .Underwent peg placement on 05/31 and tolerating tube feeding Will discharge to [facility] where patient can continue physical , occupational and speech therapy Family is aware( sister ) 1. Acute Respiratory failure with Hypoxia sec to Aspiration Pneumonia-- improved Patient was intubated for more than 10 days in ICU. He had total opacification of left lung 05/09 due to aspiration pneumonia since patient could not handle his secretions and could not protect his airway . Extubated and doing well, maintaining his airway at present , saturating 100% in RA Sputum cultures were positive for MRSA and Serratia Marcescen and patient received full course of meropenem and Vanco IV as per ID Afebrile, leukocytosis resolved CXR today shows clear lung holley keep head of the bed elevated aspiration precautions No need for bronchoscopy and trach as discussed with Dr Meli pate 2. Acute Ischemic stroke - Right MCA distribution patient became lethargic with dysarthria, dysphagia, left facial droop and left side hemiparesis with stroke progression MRI of the head 04/28 : 1. Acute right MCA territory infarction involving the right narayanan radiata and basal ganglia. At present neurologically much improved,awake, alert and oriented , maintaining his airway , able to move LUE 4/5 , LLE 4/5, following commands and responding questions appropriately continue PT , OT and speech eval . Failed Modified Barium swallow eval twice last one 05/23 GI consulted and patient had peg placed 05/31 Continue tube feeding and meds via peg, statin, ASA, plavix, BP meds Will resume meds via peg today and feeding tomorrow Medicaid application ongoing Will d/c to [facility] today to continue PT 3.ETOH withdrawal/ Delirium tremens-- resolved patient was tachycardic, tremulous, confused with visual hallucinations on admission was initially Started on librium tapering dose and now discontinued received thiamine, folic acid, MVI and IVF Seizure precautions Ativan prn continue thiamine 4. HTN uncontrolled on Enalapril 10 mg po BID, Clonidin epatch and Hydralazine 25 mg pO tid 5.Thrombocytopenia improved 6.Hypokalemia, replace with Kcl as needed 7. Anemia of chronic disease resolved 8. Depression/ adjustment disorder Pt told RN , he wanted to kill himself but denies any suicidal ideation at present Psych consulted and rec Paxil and Risperdal psych meds were not started since patient failed swallow eval At present he is awake , alert and oriented , denies any suicidal thoughts or ideation. happy to go to rehab for physical therapy Will hold off starting any psych meds now to avoid sedation patient to be evaluated closely by medical staff and psychologist at [facility] 8. DVT PPx Lovenox Discharge Exam - Head Exam Head Exam: ATRAUMATIC, NORMOCEPHALIC - Eye Exam Eye Exam: EOMI, Normal appearance, PERRL Pupil Exam: NORMAL ACCOMODATION - ENT Exam ENT Exam: Mucous Membranes Moist, Normal Exam - Neck Exam Neck exam: Normal Inspection - Respiratory Exam Respiratory Exam: Clear to PA & Lateral, NORMAL BREATHING PATTERN. absent: Rales, Rhonchi, Wheezes - Cardiovascular Exam Cardiovascular Exam: REGULAR RHYTHM, RRR, +S1, +S2. absent: JVD - GI/Abdominal Exam GI & Abdominal Exam: Normal Bowel Sounds, Soft. absent: Distended, Guarding, Rebound, Tenderness Additional comments: peg in place - Rectal Exam Rectal Exam: Deferred - Extremities Exam Extremities exam: normal capillary refill, normal inspection, pedal pulses present - Neurological Exam Neurological exam: Alert, CN II-XII Intact Additional comments: LLE 4/.5 LUE 4/5 - Psychiatric Exam Psychiatric exam: Normal Affect - Skin Skin Exam: Dry, Normal Color, Warm Additional comments: cachetic Discharge Plan - Follow Up Plan Condition: STABLE Disposition: REHAB FACILITY/REHAB UNIT Patient education suggested?: Yes Instructions: Stroke (DC), How to Use and Care for Your PEG Tube (DC)
[2017-06-01 15:56] VITALS: RESP 20; O2SAT 97
--- NOTE | 2017-06-01 16:03 | CP.PCM.PN ---
Subjective - Date & Time of Evaluation Date of Evaluation: 06/01/17 Time of Evaluation: 11:30 - Subjective Subjective: F/U Respiratory failure. Pt awake, follows commands, no A/D, no SOB, off O2 on room air. Objective - Vital Signs/Intake and Output Vital Signs (last 24 hours): Temp Pulse Resp BP Pulse Ox 98.3 F 87 20 155/75 H 97 06/01/17 15:56 06/01/17 15:56 06/01/17 15:56 06/01/17 15:56 06/01/17 15:56 Intake and Output: 06/01/17 06/01/17 06:59 18:59 Intake Total 1060 Balance 1060 - Medications Medications: Current Medications Acetaminophen (Tylenol 650 Mg Supp) 650 mg MA Q6 PRN PRN Reason: Fever >100.4 F Last Admin: 05/11/17 04:50 Dose: 650 mg Acetylcysteine (Acetylcysteine 20%) 2 ml INH RBID [facility] Last Admin: 06/01/17 07:26 Dose: 2 ml Albuterol/Ipratropium (Duoneb 3 Mg/0.5 Mg (3 Ml) Ud) 3 ml INH RQID [facility] Last Admin: 06/01/17 15:07 Dose: 3 ml Aspirin (Aspirin Chewable) 81 mg PO DAILY [facility] Last Admin: 06/01/17 09:13 Dose: 81 mg Atorvastatin Calcium (Lipitor) 40 mg PO DAILY [facility] Last Admin: 06/01/17 09:13 Dose: 40 mg Clonidine HCl (Catapres Tts1 0.1 Mg/24 Hr) 1 patch TD Q7D [facility] Last Admin: 05/29/17 09:17 Dose: 1 patch Clopidogrel Bisulfate (Plavix) 75 mg PO DAILY [facility] Last Admin: 06/01/17 09:13 Dose: 75 mg Enalapril Maleate (Vasotec) 10 mg PO BID [facility] Last Admin: 06/01/17 09:12 Dose: 10 mg Enoxaparin Sodium (Lovenox) 40 mg SC DAILY [facility] PRN Reason: Protocol Last Admin: 06/01/17 09:12 Dose: 40 mg Hydralazine HCl (Apresoline) 25 mg PO TID [facility] Last Admin: 06/01/17 14:41 Dose: 25 mg Thiamine HCl 100 mg/ Sodium (Chloride) 101 mls @ 101 mls/hr IV DAILY [facility] Last Admin: 06/01/17 09:13 Dose: 101 mls/hr Potassium Chloride/Dextrose/Sod Cl (Potassium Chl 20 Meq In D5-Ns) 1,000 mls @ 80 mls/hr IV .[id number] [facility] Last Admin: 06/01/17 02:32 Dose: 80 mls/hr Lorazepam (Ativan) 1 mg IVP Q6 PRN PRN Reason: Agitation Last Admin: 05/21/17 01:06 Dose: 1 mg Morphine Sulfate (Morphine) 2 mg IVP Q6 PRN PRN Reason: Agitation Last Admin: 06/01/17 14:41 Dose: 2 mg Pantoprazole Sodium (Protonix Susp) 40 mg PEG BID [facility] Last Admin: 06/01/17 09:12 Dose: 40 mg - Labs Labs: 06/01/17 05:45 06/01/17 05:45 PT 13.2 Seconds (9.8-13.1) H 05/30/17 10:20 INR 1.3 (0.9-1.2) H 05/30/17 10:20 APTT 36.0 Seconds (25.6-37.1) 05/26/17 06:00 - Respiratory Exam Respiratory Exam: Decreased Breath Sounds (at bases) - Cardiovascular Exam Cardiovascular Exam: REGULAR RHYTHM - GI/Abdominal Exam GI & Abdominal Exam: Soft, Tenderness (minimal in area of Peg-tube), Normal Bowel Sounds - Neurological Exam Neurological Exam: Alert, Awake Additional comments: Confused at times, L hemiplegia. - Psychiatric Exam Additional comments: Calm - Skin Skin Exam: Normal Color, Warm Assessment and Plan (1) Acute respiratory failure Assessment & Plan: Improved. Status: Acute (2) MRSA pneumonia Assessment & Plan: Improved. Status: Acute (3) Acute right MCA stroke Status: Acute - Assessment and Plan (Free Text) Plan: CXR shows PNA improved, continue Duoneb Tx.
[2017-06-01 19:27] VITALS: BP 144/69; PULSE 80; TEMP 98.1
== END 2017-06-01 20:00 | DRG 64 ==
LOC: H.ER 19:22 → H.ERHOLD 21:42 → H.TEL 04-27 00:41 → H.MEDSURG1 05-03 18:25 → H.TEL 05-04 12:47 → H.ICU/CCU 05-09 13:15 → H.TEL 05-23 18:27
PROVIDERS: ADMIT Internal Medicine; ATTEND Internal Medicine
PROC: 3E0234Z Introduction of Serum, Toxoid and Vaccine into Muscle, Percutaneous Approach (ICD-10-PCS; 2017-04-27)
PROC: 0BH17EZ Insertion of Endotracheal Airway into Trachea, Via Natural or Artificial Opening (ICD-10-PCS; principal; 2017-05-09)
PROC: 5A1955Z Respiratory Ventilation, Greater than 96 Consecutive Hours (ICD-10-PCS; 2017-05-09)
PROC: 0DH63UZ Insertion of Feeding Device into Stomach, Percutaneous Approach (ICD-10-PCS; 2017-05-30)
DX: I63.511 Cerebral infarction due to unspecified occlusion or stenosis of right middle cerebral artery (principal); A41.9 Sepsis, unspecified organism; J96.01 Acute respiratory failure with hypoxia; R65.20 Severe sepsis without septic shock; J69.0 Pneumonitis due to inhalation of food and vomit; G93.41 Metabolic encephalopathy; J15.212 Pneumonia due to Methicillin resistant Staphylococcus aureus; F10.231 Alcohol dependence with withdrawal delirium; E87.1 Hypo-osmolality and hyponatremia; G81.94 Hemiplegia, unspecified affecting left nondominant side; R45.851 Suicidal ideations; J93.9 Pneumothorax, unspecified; S09.90XA Unspecified injury of head, initial encounter; D69.6 Thrombocytopenia, unspecified; E87.5 Hyperkalemia; F22 Delusional disorders; D53.9 Nutritional anemia, unspecified; D63.8 Anemia in other chronic diseases classified elsewhere; E87.6 Hypokalemia; F17.200 Nicotine dependence, unspecified, uncomplicated; F32.9 Major depressive disorder, single episode, unspecified; F43.20 Adjustment disorder, unspecified; I10 Essential (primary) hypertension; I25.10 Atherosclerotic heart disease of native coronary artery without angina pectoris; I69.391 Dysphagia following cerebral infarction; R13.12 Dysphagia, oropharyngeal phase; R29.6 Repeated falls; I69.392 Facial weakness following cerebral infarction; I69.321 Dysphasia following cerebral infarction; T17.990A Other foreign object in respiratory tract, part unspecified in causing asphyxiation, initial encounter; X58.XXXA Exposure to other specified factors, initial encounter; Y93.9 Activity, unspecified; Y92.230 Patient room in hospital as the place of occurrence of the external cause; Z59.0 Homelessness; Z79.02 Long term (current) use of antithrombotics/antiplatelets; Z79.82 Long term (current) use of aspirin; Z79.899 Other long term (current) drug therapy; Z91.81 History of falling; M54.5 Low back pain; G89.29 Other chronic pain; K52.9 Noninfective gastroenteritis and colitis, unspecified; M19.90 Unspecified osteoarthritis, unspecified site; R47.1 Dysarthria and anarthria; R90.82 White matter disease, unspecified; Z23 Encounter for immunization